=== PATIENT | female | born 1975 ===

== ENCOUNTER 2020-08-26 17:00 | Emergency (ER) | payer OTHER, SELFPAY ==
--- NOTE | 2020-08-26 | XR_ITS ---
EXAMINATION: CHEST 2 VIEWS CLINICAL INFORMATION: Chest pain. COMPARISON: March 15, 2020. TECHNIQUE: PA and lateral views of the chest were obtained. FINDINGS: The cardiac silhouette is not enlarged. The mediastinal and hilar contours are unremarkable. There are neither pleural effusions nor pneumothoraces. There are no consolidations. The osseous structures are stable. IMPRESSION: No evidence for acute disease.
--- NOTE | 2020-08-26 17:09 | PC.NURSE ---
ekg performed by shilpa in triage room
[2020-08-26 18:01] VITALS: BP 131/84; PULSE 86; RESP 18; TEMP 37.7; O2SAT 99; BMI 41.4
[2020-08-26 19:48] LABS: MANUAL DIFF FLAG NO
[2020-08-26 19:52] LABS: Basophils Percent Auto 0.3 % (0-2); Eosinophils Absolute Auto 0.1 X10*3/uL (0.0-0.4); Eosinophils Percent Auto 0.5 % (0-4); Hemoglobin 13.6 g/dl (12.0-16.0); Imm Gran Abs Auto 0.03 X10*3/uL (0.00-0.03); Imm Gran Pct Auto 0.3 % (0.0-0.4); Lymphocytes Absolute Auto 3.6 X10*3/uL (1.2-4.9); Lymphocytes Percent Auto 37.9 % (20-40); Mean Corpuscular HGB Conc 32.4 g/dl (31.0-35.0); Mean Corpuscular Hemoglobin 26.2 pg (27.0-33.0); Mean Corpuscular Volume 80.9 fL (80-98); Mean Platelet Volume 9.8 fL (9.4-12.3); Monocytes Absolute Auto 0.5 X10*3/uL (0.1-1.2); Monocytes Percent Auto 5.2 % (2-11); Neutrophils Absolute Auto 5.3 X10*3/uL (2.0-8.3); Neutrophils Percent Auto 55.8 % (45-73); Platelet Count 336 X10*3/uL (160-400); Red Blood Count 5.19 X10*6/uL (4.20-5.50); Red Cell Distribution Width 14.7 % (11.0-16.0); White Blood Count 9.5 X10*3/uL (4.8-10.8)
--- NOTE | 2020-08-26 19:58 | CT_ITS ---
EXAMINATION: CT HEAD WITHOUT CONTRAST CLINICAL INFORMATION: Trauma COMPARISON: 06/15/2019 TECHNIQUE: Contiguous axial imaging was performed from the skull base to vertex without intravenous administration of contrast. This CT examination was performed using dose optimization techniques as appropriate, variously including the following: *Automated exposure control *Adjustment of mA and/or kV according to patient size (this includes techniques or standardized protocols for targeted exams where dose is matched to indication/reason for exam; i.e. extremities or head) *Use of iterative reconstruction technique DLP: 680 mGy-cm FINDINGS: There is no evidence of acute intracranial hemorrhage or territorial infarction. No abnormal mass effect or midline shift is seen. [place] to white matter differentiation is well preserved. No extra-axial fluid collections are identified. The ventricles are normal in size. There is no abnormal attenuation within the brain parenchyma. The osseous structures and soft tissues are normal. The mastoid air cells and visualized portions of the paranasal sinuses are well aerated. IMPRESSION: No acute intracranial pathology.
--- NOTE | 2020-08-26 19:58 | US_ITS ---
EXAMINATION: US VENOUS LEFT LOWER EXTREMITY CLINICAL INFORMATION: Left lower extremity pain COMPARISON: None. TECHNIQUE: Doppler spectral analysis and color flow Doppler imaging was performed of the left lower extremity. Compression and augmentation maneuvers were performed. FINDINGS: The left common femoral, femoral, popliteal and calf veins were well-identified and normal. They demonstrate normal compressibility and color fill-in. IMPRESSION: No evidence for left lower extremity deep vein thrombosis.
--- NOTE | 2020-08-26 20:00 | ECG_ITS ---
Test Reason : CHEST PAIN Blood Pressure : / mmHG Vent. Rate : 086 BPM Atrial Rate : 086 BPM P-R Int : 130 ms QRS Dur : 100 ms QT Int : 374 ms P-R-T Axes : 036 040 015 degrees QTc Int : 447 ms Normal sinus rhythm Normal ECG No significant changes seen Referred By: Jaylene Vyas Electronically Signed By:MARIO ISSA MD
--- NOTE | 2020-08-26 20:01 | ED.CHESTPAIN ---
HPI - Chest Pain General Chief Complaint: Chest Pain Stated Complaint: FALL, CHEST PAIN Time Seen by Provider: 08/26/20 19:47 History of Present Illness HPI narrative: patient is a 44-year-old female with history of diabetes, hypertension, hypercholesterolemia presents today with having chest pain that is been on and off for the last 3 days. The pain has been constant for the last 6 hours. The pain is dull in nature as mid chest is worse with lying down. Has some shortness of breath with ambulation as well. There is no diaphoresis. No coughing or congestion or upper respiratory symptoms. Nothing really makes it better. This pain is rated as 5/10. patient did fell yesterday accidentally hit her head. There is dizziness associated with it. There was no loss of consciousness. There is no nausea no vomiting. Patient also has pain over the left lower extremity. Patient denies having any history of blood clot. Is not on control. No history of sudden in the family. No radiation of the pain. No history of having any stress test MD complaint: chest pain Onset (ago): day(s) Timing of current episode: episodic Related Data Previous Rx's Medication Instructions Recorded cephalexin [Keflex] 500 mg PO TID 7 Days #21 cap 08/26/20 ibuprofen 400 mg PO Q6H PRN #20 tab 08/26/20 Allergies Allergy/AdvReac Type Severity Reaction Status Date / Time canagliflozin [Invokana] Allergy Unknown rash Verified 07/06/20 00:00 liraglutide Allergy Unknown rash Verified 07/06/20 00:00 No Known Allergies Allergy Verified 08/26/20 18:00 [No Known Allergies*] animals Allergy Unknown rash Uncoded 07/06/20 00:00 Pt states no known food Allergy Unknown Unknown Uncoded 08/26/20 18:00 allerg Review of Systems Review of Systems: Constitutional: No Weight loss, No Fever, No Chills, No Night Sweats, No Fatigue, No Malaise ENT/Mouth: No Hearing loss, No Ear Pain, No Nasal Congestion, No Sinus Pain, No Hoarseness, No sore throat, No Rhinorrhea, No Swallowing Difficulty Eyes: No Eye Pain, No Swelling, No Redness, No Foreign Body, No Discharge, No Vision Changes Cardiovascular: positiveChest Pain, positive SOB, positive Dyspnea on Exertion, No Orthopnea, No Edema, No Palpitations Respiratory: No Cough, No Sputum, No Wheezing, No Smoke Exposure, No Dyspnea Gastrointestinal: No Nausea, No Vomiting, No Diarrhea, No Constipation, No abdominal Pain, No Hematochezia, No Melena Genitourinary: no irregular bleeding, No Dysuria, No Urinary Frequency, No Hematuria, No Urinary Incontinence, No Urgency, No Flank Pain, No Urinary Flow Changes, No Hesitancy Musculoskeletal: No joint pain, No Myalgias, No Joint Swelling Skin: No Skin Lesions, No rash Neuro: No Weakness, No Numbness, No Paresthesias, No Loss of Consciousness, No Dizziness, No Headache Psych: No Anxiety/Panic, No Depression, No SI/HI/AH/VH, No Social Issues, Heme/Lymph: No Bruising, No Bleeding,No Lymphadenopathy Endocrine: No Polyuria, No Polydipsia, No Temperature Intolerance [facility] Past Medical History Attestation statement: The following information was validated with the patient. Medical History Asthma Diabetes Ectopic Hyperlipidemia Hypertension Social History Social History Advance Directives: No Advance Directives Information Provided: No Physical Exam Vital Signs: Vital Signs: Vital Signs Temp Pulse Resp BP Pulse Ox 08/26/20 18:01 99.9 F 86 18 131/84 99 Body Mass Index 41.4 O2 sat 99% on room air. Normal. Appearance: Alert. Oriented X3. No acute distress. Eyes: Pupils equal, round and reactive to light. ENT: Pharynx normal. Neck: Normal inspection. Neck supple. No lymph nodes noted. No crepitus CVS: Normal heart rate and rhythm. Pulses normal. Normal S1 and S2 Respiratory: No respiratory distress. Breath sounds normal. No Wheezing. No rales Abdomen: Soft and nontender. No rigidity. No distention. good BS x4 Skin: Skin warm and dry. Normal skin color. Normal skin turgor. Extremities: No lower extremity edema. Neurovascular intact to all extremities. No Lacerations. No Rash , Calf are equal in size at 10 cm below the tibial tuberosity bilaterally Neuro: Oriented X 3. No motor deficit. No sensory deficit. Moving all extermities. No slurred speech MDM - Chest Pain MDM Narrative Medical decision making narrative: patient's chest x-ray negative for any acute evidence of pneumonia pneumothorax. Patient's electrolytes unremarkable. Troponin is negative. In the setting atypical history. Patient's risk factors. Heart score is less than 3. Patient is Doppler of the lower extremity was negative for any acute evidence of DVT. Patient's history is not consistent with PE. Will discharge patient home close follow-up on an outpatient basis. During further discussion with patient patient showed position a lesion in her left thigh. It looks grossly erythematous. Will give antibiotic. Will encourage patient to closely follow up on an outpatient basis. Patient will need follow-up for her chest pain as well. Differential Diagnosis Differential diagnosis: Likely fracture of rib, pneumothorax, stable angina, unstable angina pectoris, atypical chest pain, st elevation myocardial infarction, costochondritis and chest pain Medical Records Data Attestation: I reviewed the patient's medical records. Lab Data Attestation: I reviewed the patient's lab results. Result diagrams: 08/26/20 19:40 08/26/20 19:40 Labs: Lab Results 08/26/20 08/26/20 08/26/20 Range/Units 19:40 19:40 19:40 WBC 9.5 (4.8-10.8) X10*3/uL RBC 5.19 (4.20-5.50) X10*6/uL Hgb 13.6 (12.0-16.0) g/dl Hct 42.0 (37-47) % MCV 80.9 (80-98) fL MCH 26.2 L (27.0-33.0) pg MCHC 32.4 (31.0-35.0) g/dl RDW 14.7 (11.0-16.0) % Plt Count 336 (160-400) X10*3/uL MPV 9.8 (9.4-12.3) fL Immature Gran % (Auto) 0.3 (0.0-0.4) % Neut % (Auto) 55.8 (45-73) % Lymph % (Auto) 37.9 (20-40) % [place] % (Auto) 5.2 (2-11) % Eos % (Auto) 0.5 (0-4) % Baso % (Auto) 0.3 (0-2) % Lymph # (Auto) 3.6 (1.2-4.9) X10*3/uL [place] # (Auto) 0.5 (0.1-1.2) X10*3/uL Eos # (Auto) 0.1 (0.0-0.4) X10*3/uL Baso # (Auto) 0.0 (0.0-0.2) X10*3/uL Abs Immat Gran (auto) 0.03 (0.00-0.03) X10*3/uL Absolute Neuts (auto) 5.3 (2.0-8.3) X10*3/uL Absolute Nucleated RBC 0.000 (0.0-0.012) X10*3/uL Nucleated RBC % (auto) 0.0 (0.0-0.2) /100WBC Hold Blue Top SEE NOTE Sodium 137 (135-145) mmol/L Potassium 3.8 (3.3-5.1) mmol/l Chloride 102 (96-108) mmol/L Carbon Dioxide 25 (22-29) mmol/L Anion Gap 14 (12-20) BUN 12 (9-16) mg/dL Creatinine 0.65 (0.5-1.4) mg/dL Estim Creat Clear Calc 145.0 Estimated GFR > 60 Random Glucose 198 H (60-115) mg/dL Calcium 9.3 (8.4-10.2) mg/dL Troponin I High Sens (<3.5-17.0) ng/L 08/26/20 Range/Units 19:40 WBC (4.8-10.8) X10*3/uL RBC (4.20-5.50) X10*6/uL Hgb (12.0-16.0) g/dl Hct (37-47) % MCV (80-98) fL MCH (27.0-33.0) pg MCHC (31.0-35.0) g/dl RDW (11.0-16.0) % Plt Count (160-400) X10*3/uL MPV (9.4-12.3) fL Immature Gran % (Auto) (0.0-0.4) % Neut % (Auto) (45-73) % Lymph % (Auto) (20-40) % [place] % (Auto) (2-11) % Eos % (Auto) (0-4) % Baso % (Auto) (0-2) % Lymph # (Auto) (1.2-4.9) X10*3/uL [place] # (Auto) (0.1-1.2) X10*3/uL Eos # (Auto) (0.0-0.4) X10*3/uL Baso # (Auto) (0.0-0.2) X10*3/uL Abs Immat Gran (auto) (0.00-0.03) X10*3/uL Absolute Neuts (auto) (2.0-8.3) X10*3/uL Absolute Nucleated RBC (0.0-0.012) X10*3/uL Nucleated RBC % (auto) (0.0-0.2) /100WBC Hold Blue Top Sodium (135-145) mmol/L Potassium (3.3-5.1) mmol/l Chloride (96-108) mmol/L Carbon Dioxide (22-29) mmol/L Anion Gap (12-20) BUN (9-16) mg/dL Creatinine (0.5-1.4) mg/dL Estim Creat Clear Calc Estimated GFR Random Glucose (60-115) mg/dL Calcium (8.4-10.2) mg/dL Troponin I High Sens < 3.5 (<3.5-17.0) ng/L Discharge Plan Discharge Clinical Impression: Chest pain, Cellulitis Patient Disposition: Home, Self-Care Instructions: Chest Pain (ED), Cellulitis (ED) Additional Instructions: Thank you for visiting the emergency department today. If your symptoms worsen or do not resolve completely please return to the emergency department immediately or call 911. if he have any questions please call your primary care physician [place] please take antibiotics close follow-up on an outpatient basis. Please follow-up with your doctor for your chest pain. Small risk of myocardial infarction still exists. Prescriptions: New cephalexin [Keflex] 500 mg capsule 500 mg PO TID 7 Days Qty: 21 RF: 0 ibuprofen 400 mg tablet 400 mg PO Q6H PRN (Reason: pain) Qty: 20 RF: 0 Referrals: Shandra Diaz MD [Primary Care Provider] - 2 days
[2020-08-26 20:15] LABS: Anion Gap 14 (12-20); Blood Urea Nitrogen 12 mg/dL (9-16); Calcium 9.3 mg/dL (8.4-10.2); Carbon Dioxide 25 mmol/L (22-29); Chloride 102 mmol/L (96-108); Estimated Glomerular Filt Rate > 60; Glucose Random 198 mg/dL (60-115); Potassium 3.8 mmol/l (3.3-5.1); Sodium 137 mmol/L (135-145)
[2020-08-26 20:22] LABS: Troponin-I High Sensitivity < 3.5 ng/L (<3.5-17.0)
[2020-08-26] MEDS: Aspirin 81 MG TAB.CHEW 324 MG PO (20:34)
[2020-08-26 22:10] LABS: Basophils Percent Auto 0.3 % (0-2); Hematocrit 40.3 % (37-47); MANUAL DIFF FLAG SCAN; Mean Platelet Volume 9.7 fL (9.4-12.3); PLT CLUMP 1; SCAN SMEAR FLAG 1
[2020-08-26 22:12] LABS: Eosinophils Absolute Auto 0.1 X10*3/uL (0.0-0.4); Eosinophils Percent Auto 0.9 % (0-4); Imm Gran Abs Auto 0.02 X10*3/uL (0.00-0.03); Imm Gran Pct Auto 0.2 % (0.0-0.4); Lymphocytes Percent Auto 40.5 % (20-40); Mean Corpuscular HGB Conc 32.3 g/dl (31.0-35.0); Mean Corpuscular Hemoglobin 25.9 pg (27.0-33.0); Mean Corpuscular Volume 80.3 fL (80-98); Monocytes Absolute Auto 0.6 X10*3/uL (0.1-1.2); Monocytes Percent Auto 6.2 % (2-11); Neutrophils Absolute Auto 5.1 X10*3/uL (2.0-8.3); Neutrophils Percent Auto 51.9 % (45-73); Platelet Count 308 X10*3/uL (160-400); Red Blood Count 5.02 X10*6/uL (4.20-5.50); Red Cell Distribution Width 14.7 % (11.0-16.0); White Blood Count 9.8 X10*3/uL (4.8-10.8)
[2020-08-26 22:16] LABS: SLIDE REVIEW VERIFIED
[2020-08-26 22:32] LABS: Alanine Aminotransferase 24 U/L (0-31); Albumin Level 4.1 g/dL (3.5-5.0); Alkaline Phosphatase 102 U/L (39-117); Aspartate Amino Transferase 16 U/L (5-31); Bilirubin Direct 0.4 mg/dL (0.0-0.5); Bilirubin Total 0.8 mg/dL (0.0-1.0); Lipase 16 U/L (8-78); Total Protein 7.1 g/dL (6.5-8.0)
== END 2020-08-26 22:42 | disposition home or self-care (01) ==
PROVIDERS: Emergency Provider Emergency Medicine Emergency Medical Services; PCP Internal Medicine
DX: R07.9 Chest pain, unspecified (principal); L03.116 Cellulitis of left lower limb; M79.662 Pain in left lower leg; E11.9 Type 2 diabetes mellitus without complications; I10 Essential (primary) hypertension; E78.5 Hyperlipidemia, unspecified
CPT/HCPCS: 36415; 70450; 71046; 80048; 80076; 83690; 84484; 85025; 93005; 93971; 99283; 99284

== ENCOUNTER 2020-11-06 11:45 | Outpatient (REF) | payer OTHER, SELFPAY ==
[2020-11-06 12:44] LABS: Estimated Average Glucose 214 mg/dL; Hemoglobin A1c % 9.1 %
[2020-11-06 13:14] LABS: Alanine Aminotransferase 23 U/L (0-31); Albumin Level 4.2 g/dL (3.5-5.0); Alkaline Phosphatase 99 U/L (39-117); Anion Gap 12 (12-20); Aspartate Amino Transferase 19 U/L (5-31); Bilirubin Total 1.8 mg/dL (0.0-1.0); Blood Urea Nitrogen 9 mg/dL (9-16); Calcium 8.9 mg/dL (8.4-10.2); Carbon Dioxide 28 mmol/L (22-29); Chloride 100 mmol/L (96-108); Cholesterol 156 mg/dL; Estimated Glomerular Filt Rate > 60; Glucose Random 218 mg/dL (60-115); HDL Cholesterol 51 mg/dL; LDL Cholesterol Calculated 91 mg/dl; Sodium 136 mmol/L (135-145); Total Protein 7.1 g/dL (6.5-8.0); Triglycerides 72 mg/dL
== END 2020-11-06 11:46 | disposition home or self-care (01) ==
LOC: HO.LAB 11:45
PROVIDERS: PCP Internal Medicine; Visit Provider Internal Medicine
DX: E11.65 Type 2 diabetes mellitus with hyperglycemia (principal); E78.00 Pure hypercholesterolemia, unspecified; I10 Essential (primary) hypertension; N30.00 Acute cystitis without hematuria; Z00.01 Encounter for general adult medical examination with abnormal findings
CPT/HCPCS: 80053; 80061; 83036

== ENCOUNTER → 2020-12-12 08:10 | Outpatient (BNVA) | payer OTHER, SELFPAY | PROVIDERS: PCP Internal Medicine; Referring Provider Internal Medicine; Visit Provider Internal Medicine Endocrinology, Diabetes & Metabolism | DX: E11.65 Type 2 diabetes mellitus with hyperglycemia (principal); E11.42 Type 2 diabetes mellitus with diabetic 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; Z79.4 Long term (current) use of insulin; I10 Essential (primary) hypertension; E78.00 Pure hypercholesterolemia, unspecified; E66.01 Morbid (severe) obesity due to excess calories; E55.9 Vitamin D deficiency, unspecified | CPT/HCPCS: 82947 ==

== ENCOUNTER 2020-12-18 20:37 | Emergency (ER) | payer OTHER, SELFPAY ==
[2020-12-18 21:49] VITALS: BP 173/95; PULSE 97; RESP 17; TEMP 37; O2SAT 98
[2020-12-18 22:12] VITALS: BP 173/95; PULSE 97; RESP 17; TEMP 37; O2SAT 98; BMI 38.7
--- NOTE | 2020-12-18 22:53 | XR_ITS ---
EXAMINATION: XR CHEST CLINICAL INFORMATION: Cough COMPARISON: Chest x-ray 08/26/2020 TECHNIQUE: 2 views of the chest were obtained. FINDINGS: No significant abnormality is noted involving the heart, lungs, mediastinum, bony thorax or soft tissues. XR/XR chest 2V IMPRESSION: Unremarkable examination.
[2020-12-18] MEDS: diphenhydrAMINE HCL 25 MG TABLET 50 MG PO (23:08)
--- NOTE | 2020-12-18 23:22 | ED.SKABFB ---
HPI - Skin/Abscess/Foreign Bdy General Chief complaint: Skin/Abscess/Foreign Body Stated complaint: rash Time Seen by Provider: 12/18/20 22:17 Source: patient Mode of arrival: ambulatory History of Present Illness HPI narrative: This is a 45-year-old female with history diabetes and asthma who presents with onset facial redness and itchiness this started on Thursday and progressively worsened into Thursday with associated fevers that she reports as 101.2 and discussed her condition with her primary care provider who started her on cephalexin and prednisone. Patient states that since being started on the cephalexin and prednisone the redness in her face has actually worsened and now she has some complaints of right upper quadrant right lower lobe discomfort on deep inspiration but otherwise denies chest pain/palpitations/soreness of breath. She denies any recent history of cough for sore throat and adamantly denies any new products, pets, clothing, exposure to anything that may have led to this. Lotions, soaps, makeup, washing detergent, clothing, masks, pets. MD complaint: rash Related Data Home Medications Medication Instructions Recorded Confirmed amlodipine 10 mg tablet 10 mg PO DAILY 12/12/20 12/12/20 empagliflozin 10 mg tablet 10 mg PO QAM 12/12/20 12/12/20 ezetimibe 10 mg tablet 10 mg PO DAILY 12/12/20 12/12/20 gabapentin 100 mg capsule 100 mg PO TID 12/12/20 12/12/20 rosuvastatin 40 mg tablet 40 mg PO BEDTIME 12/12/20 12/12/20 sitagliptin 100 mg tablet 100 mg PO DAILY 12/12/20 12/12/20 telmisartan 80 1 tab PO DAILY 12/12/20 12/12/20 mg-hydrochlorothiazide 25 mg tablet Previous Rx's Medication Instructions Recorded cephalexin [Keflex] 500 mg PO TID 7 Days #21 cap 08/26/20 ibuprofen 400 mg PO Q6H PRN #20 tab 08/26/20 metformin 500 mg tablet,extended 500 mg PO DAILY #90 tab 12/07/20 release 24 hr insulin pump cartridge #10 ea 12/12/20 blood sugar diagnostic #100 ea 12/13/20 insulin lispro 100 unit/mL 0 - 100 unit SUBCUT DAILY #90 ml 12/14/20 subcutaneous solution Allergies Allergy/AdvReac Type Severity Reaction Status Date / Time canagliflozin [Invokana] Allergy Unknown rash Verified 07/06/20 00:00 liraglutide Allergy Unknown rash Verified 07/06/20 00:00 No Known Allergies Allergy Verified 08/26/20 18:00 [No Known Allergies*] animals Allergy Unknown rash Uncoded 07/06/20 00:00 Pt states no known food Allergy Unknown Unknown Uncoded 08/26/20 18:00 allerg Review of Systems Review of Systems: Pertinent positives and negatives as stated in HPI 10 point review of systems is otherwise negative. PMFSH Past Medical History Source: nursing notes reviewed Medical History Asthma Diabetes Diabetes type 2, uncontrolled Diabetic 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 with type 2 diabetes mellitus Ectopic Hyperlipidemia Hypertension shelter (current) use of insulin Morbid obesity Vitamin D deficiency Surgical History History of surgical procedure on mouth Hx of ectopic Family History Family History Father Diabetes mellitus Mother Diabetes mellitus Ovarian cancer Social History Social History Smoking Status: Never smoker Use of substances other than those prescribed or required for medical reasons: No Advance Directives: No Advance Directives Information Provided: Yes Physical Exam Vital Signs: Vital Signs: Last Vital Signs Temp 98.6 F 12/18/20 22:12 Pulse 97 12/18/20 22:12 Resp 17 12/18/20 22:12 BP 173/95 H 12/18/20 22:12 Pulse Ox 98 12/18/20 22:12 Body Mass Index 38.7 VITAL SIGNS: Reviewed. GENERAL: Well developed, well nourished, in no acute distress. HEAD: Normocephalic/atraumatic, EYES: PERRLA, EOMI, bilateral conjunctival injection with clear watery drainage EARS: Ext canals without abnormality NOSE: Nares patent bilateral OROPHARYNX: no oral lesions noted, posterior pharynx clear NECK: Supple, no adenopathy LUNGS: Normal breath sounds.SpO2<98> CARDIOVASCULAR: Regular rate and rhythm without noted murmurs ABDOMEN: Soft, non-tender, non-distended with bowel sounds. EXTREMITIES: No cyanosis, clubbing or edema. SKIN: Inspection of the skin reveals erythema, as well as hives around left eye but no lip or tongue or posterior pharynx swelling noted NEUROLOGIC: Alert and oriented x 4. Course Course Course Narrative: This is a 45-year-old female with history and clinical presentation consistent with some form, unknown, allergic exposure and based on history appears to be new and is likely attributable to chronic exposure that she is experiencing currently. However, there is evidence to suggest that this has worsened with initiation cephalexin and prednisone and patient was instructed to stop both medications. Doubt pneumonia, cardiac, PE, anaphylaxis, angioedema etiologies. -Benadryl, two view chest x-ray, re-evaluation All investigations reviewed and on re-evaluation patient reports considerable improvement with almost complete resolution of facial erythema and still no evidence anaphylaxis or angioedema symptoms. Chest x-ray without acute findings and right upper quadrant right lower chest wall discomfort has completely resolved. Patient was instructed to stop the cephalexin and prednisone as the cephalexin might be causing an adverse reaction. Discharge Plan Discharge Clinical Impression: Allergic reaction, Urticaria Patient Disposition: Home, Self-Care Instructions: Urticaria (ED), General Allergic Reaction (ED) Additional Instructions: 1. Resume all home medications as prescribed. 2. STOP cephalexin and prednisone at this time. 3. Recommend taking Benadryl as directed on the outside packaging, however take it every 6-8 hours for the next 24-48 hours but if your facial symptoms do not continue to resolve please return to the emergency department for further evaluation. 4. Consider keeping a journal in an attempt to pinpoint what item you may have developed a recent interaction with. Do not hesitate to return to the emergency department should she developed any lip, tongue, facial swelling, difficulties breathing. Prescriptions: No Action metformin 500 mg tablet extended release 24 hr 500 mg PO DAILY Qty: 90 RF: 1 (DME) Contour Next Test Strips Strip See Rx Instructions .ROUTE .MEDSUPPLY Qty: 100 RF: 6 insulin lispro [Humalog U-100 Insulin] 100 unit/mL solution 0 - 100 unit subcut DAILY Qty: 90 RF: 1 cephalexin [Keflex] 500 mg capsule 500 mg PO TID 7 Days Qty: 21 RF: 0 ibuprofen 400 mg tablet 400 mg PO Q6H PRN (Reason: pain) Qty: 20 RF: 0 Jardiance 10 mg tablet 10 mg PO QAM RF: 0 rosuvastatin 40 mg tablet 40 mg PO BEDTIME RF: 0 ezetimibe 10 mg tablet 10 mg PO DAILY RF: 0 telmisartan-hydrochlorothiazid 80-25 mg tablet 1 tab PO DAILY RF: 0 amlodipine 10 mg tablet 10 mg PO DAILY RF: 0 Januvia 100 mg tablet 100 mg PO DAILY RF: 0 gabapentin 100 mg capsule 100 mg PO TID RF: 0 (DME) [employer] Dash 5 Pack Pod Cartridge See Rx Instructions .ROUTE .MEDSUPPLY Qty: 10 RF: 6 Referrals: Shandra Diaz MD [Primary Care Provider] - 2 days (Re-evaluation after worsening facial symptoms after being started on cephalexin and prednisone. No evidence of anaphylaxis or angioedema at this time.)
[2020-12-19 00:10] VITALS: BP 177/71; PULSE 99; RESP 17; TEMP 36.4; O2SAT 97
== END 2020-12-19 00:25 | disposition home or self-care (01) ==
PROVIDERS: Emergency Provider Student in an Organized Health Care Education/Training Program; PCP Internal Medicine
DX: T78.40XA Allergy, unspecified, initial encounter (principal); L50.9 Urticaria, unspecified; R07.89 Other chest pain; X58.XXXA Exposure to other specified factors, initial encounter; E11.9 Type 2 diabetes mellitus without complications; I10 Essential (primary) hypertension; J45.909 Unspecified asthma, uncomplicated; Z79.899 Other long term (current) drug therapy
CPT/HCPCS: 71046; 99283; 99284; Q0163

== ENCOUNTER 2020-12-22 09:49 | Emergency (ER) | payer OTHER, SELFPAY ==
--- NOTE | ~2020-12-22 | XR_ITS ---
EXAMINATION: XR CHEST CLINICAL INFORMATION: Shortness of breath and chest tightness. COMPARISON: Chest radiographs dated 12/18/2020. TECHNIQUE: Frontal view of the chest was obtained. FINDINGS: No significant abnormality is noted involving the heart, lungs, mediastinum, bony thorax or soft tissues. XR/XR chest 1V IMPRESSION: No acute cardiopulmonary process.
[2020-12-22 09:51] VITALS: BP 134/91; PULSE 100; RESP 30; TEMP 36.9; O2SAT 96; BMI 39.9
[2020-12-22] MEDS: Albuterol Sulfate (0.083%) 2.5 MG/3 ML VIAL.NEB 10 MG INHALE (10:44)
[2020-12-22 10:50] VITALS: PULSE 79; O2SAT 97
[2020-12-22 10:57] LABS: MANUAL DIFF FLAG NO
[2020-12-22 10:58] LABS: Basophils Percent Auto 0.4 % (0-2); Eosinophils Absolute Auto 0.2 X10*3/uL (0.0-0.4); Eosinophils Percent Auto 1.7 % (0-4); Hematocrit 40.6 % (37-47); Hemoglobin 13.4 g/dl (12.0-16.0); Imm Gran Abs Auto 0.04 X10*3/uL (0.00-0.03); Imm Gran Pct Auto 0.4 % (0.0-0.4); Lymphocytes Absolute Auto 1.4 X10*3/uL (1.2-4.9); Lymphocytes Percent Auto 12.1 % (20-40); Mean Corpuscular Hemoglobin 26.7 pg (27.0-33.0); Mean Platelet Volume 9.8 fL (9.4-12.3); Monocytes Absolute Auto 0.3 X10*3/uL (0.1-1.2); Monocytes Percent Auto 2.5 % (2-11); Neutrophils Absolute Auto 9.3 X10*3/uL (2.0-8.3); Neutrophils Percent Auto 82.9 % (45-73); Platelet Count 341 X10*3/uL (160-400); Red Blood Count 5.01 X10*6/uL (4.20-5.50); Red Cell Distribution Width 13.5 % (11.0-16.0); White Blood Count 11.2 X10*3/uL (4.8-10.8)
--- NOTE | 2020-12-22 10:58 | ED.SOB ---
HPI - SOB/Dyspnea General Chief Complaint: Dyspnea Stated Complaint: sob Time Seen by Provider: 12/22/20 10:14 Source: patient Mode of arrival: ambulatory Limitations: no limitations History of Present Illness HPI Narrative: 45-year-old female with a past medical history of asthma, type 2 diabetes with insulin usage, hypertension, hyperlipidemia and morbid obesity presenting to the ED with complaints of fevers, chills, body aches, dry cough with chest tightness, shortness of breath, dyspnea on exertion, orthopnea and wheezing for approximately 1 week worse today. Denies recent travel or sick contacts. Denies any dizziness, headaches, nausea/vomiting, chest pain, palpitations, extremity edema, symptoms or any other symptoms complaints or concerns at this time. MD elicited complaint: shortness of breath, cough, pain with inspiration and asthma attack Pertinent past history: asthma and diabetes Onset (ago): week(s) (One week worse today) Context: other (Patient reports she was seen here on 12/18/2020 for an allergic reaction) Timing: constant Severity: moderate Exacerbating factors: lying flat, exertion, movement, coughing, inspiration, talking and deep breaths Relieving factors: rest and upright position Known history of: asthma and diabetes Associated symptoms: pain with inspiration, fever, cough, wheezing and orthopnea Treatment prior to arrival: none Related Data Home Medications Medication Instructions Recorded Confirmed amlodipine 10 mg tablet 10 mg PO DAILY 12/12/20 12/12/20 empagliflozin 10 mg tablet 10 mg PO QAM 12/12/20 12/12/20 ezetimibe 10 mg tablet 10 mg PO DAILY 12/12/20 12/12/20 gabapentin 100 mg capsule 100 mg PO TID 12/12/20 12/12/20 rosuvastatin 40 mg tablet 40 mg PO BEDTIME 12/12/20 12/12/20 sitagliptin 100 mg tablet 100 mg PO DAILY 12/12/20 12/12/20 telmisartan 80 1 tab PO DAILY 12/12/20 12/12/20 mg-hydrochlorothiazide 25 mg tablet Previous Rx's Medication Instructions Recorded cephalexin [Keflex] 500 mg PO TID 7 Days #21 cap 08/26/20 ibuprofen 400 mg PO Q6H PRN #20 tab 08/26/20 metformin 500 mg tablet,extended 500 mg PO DAILY #90 tab 01/22/21 release 24 hr insulin pump cartridge #10 ea 12/12/20 blood sugar diagnostic #100 ea 12/13/20 insulin lispro 100 unit/mL 0 - 100 unit SUBCUT DAILY #90 ml 12/14/20 subcutaneous solution albuterol sulfate 0.63 mg INHALATION QID PRN #75 ml 12/22/20 albuterol sulfate 1 inh INHALATION QID PRN #8.5 g 12/22/20 azithromycin See Rx Instructions .ROUTE 12/22/20 .COMPLEX #6 tab nebulizers [AeroEclipse II #1 ea 12/22/20 Nebulizer] prednisone 40 mg PO DAILY 5 Days #10 tab 12/22/20 Allergies Allergy/AdvReac Type Severity Reaction Status Date / Time canagliflozin [Invokana] Allergy Unknown rash Verified 07/06/20 00:00 liraglutide Allergy Unknown rash Verified 07/06/20 00:00 No Known Allergies Allergy Verified 08/26/20 18:00 [No Known Allergies*] animals Allergy Unknown rash Uncoded 07/06/20 00:00 Pt states no known food Allergy Unknown Unknown Uncoded 08/26/20 18:00 allerg Review of Systems Review of Systems: Constitutional : + Fever, + Chills, + Fatigue, + Malaise, No Weight loss, No night sweats ENT/Mouth : No Hearing loss, No Ear Pain, No Nasal Congestion, No Sinus Pain, No Hoarseness, No sore throat, No Rhinorrhea, No Swallowing Difficulty Eyes: No Eye Pain, No Swelling, No Redness, No Foreign Body, No Discharge, No Vision Changes Cardiovascular : + SOB, + Dyspnea on Exertion, + Orthopnea, No Edema, No extremity swelling, No Palpitations Respiratory : + Cough, + Wheezing, + Dyspnea, No Sputum Gastrointestinal : No Nausea, No Vomiting, No Diarrhea, No abdominal Pain, No Hematochezia, No Melena Genitourinary : No irregular bleeding, No Dysuria, No Urinary Frequency, No Hematuria, No Urinary Incontinence, No Urgency, No Flank Pain, No Urinary Flow Changes, No Hesitancy Musculoskeletal : + Myalgias, No Joint Swelling, No joint pain Skin : No Skin Lesions, No rash Neuro : No Weakness, No Numbness, No Paresthesias, No Loss of Consciousness, No Dizziness, No Headache Psych : No Anxiety/Panic, No Depression, No SI/HI/AH/VH Heme/Lymph: No Bruising, No Bleeding,No Lymphadenopathy Endocrine : No Polyuria, No Polydipsia, No Temperature Intolerance Yes all other systems are reviewed and are negative [facility] Past Medical History Attestation statement: The following information was validated with the patient. 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 Morbid obesity Vitamin D deficiency Surgical History History of surgical procedure on mouth Hx of ectopic Family History Family History Father Diabetes mellitus Mother Diabetes mellitus Ovarian cancer Social History Social History Alcohol intake: never Smoking Status: Never smoker Smoked in Last 30 Days: No Use of substances other than those prescribed or required for medical reasons: No Advance Directives: No Advance Directives Information Provided: No Physical Exam Vital Signs: Vital Signs: Last Vital Signs Temp 98.5 F 12/22/20 09:51 Pulse 89 12/22/20 12:00 Resp 16 12/22/20 12:00 BP 134/91 H 12/22/20 09:51 Pulse Ox 97 12/22/20 12:00 Body Mass Index 39.9 vital signs have been reviewed as normal and appeared to be correct. Blood pressure hypertensive. Heart rate tachycardic. Respiration rate tachypneic. Temperature normal. Oxygen saturation normal. Appearance: Alert. Oriented X3. + acute respiratory distress. Head: Normal external exam. Normocephalic. Atraumatic. Eyes: PERRLA. EOMI. Conjunctiva and sclera normal. Eyelids normal. ENT: EAC normal. TM's Normal. Pharynx normal. Uvula midline. Moist mucous membranes. No trismus noted. No drooling noted. No muffled voice noted. Neck: Normal inspection. Neck supple. FROM. No adenopathy. Thyroid Normal. Trachea midline. No meningeal signs. No neck mass noted. CVS: Normal heart rate and rhythm. Heart sound normal. No murmurs noted. Pulses normal throughout. Respiratory: + respiratory distress. Patient has inspiratory and expiratory wheezing throughout. Decreased breath sounds with accessory muscle usage noted. No rales or rhonchi noted. Chest has tenderness to palpation diffusely. Abdomen: Soft and nontender. Bowel sounds normal in all 4 quadrants. No distention noted. No organomegaly noted. No visible injury noted. Back: No CVA tenderness. Full range of motion noted. Skin: Skin warm and dry. Normal skin color. Normal skin turgor. No rashes/lesions/lacerations noted. Extremities: No lower extremity edema. No calf tenderness noted. Extremities exhibit normal range of motion. Extremities nontender. Neuro: Oriented X 3. No motor deficit. No sensory deficit. Reflexes normal. Course Course Course Narrative: 10:45am - 45-year-old female with a past medical history of asthma, type 2 diabetes with insulin usage, hypertension, hyperlipidemia and morbid obesity presenting to the ED with complaints of fevers, chills, body aches, dry cough with chest tightness, shortness of breath, dyspnea on exertion, orthopnea and wheezing for approximately 1 week worse today. - on exam patient is alert and oriented x3. Patient is noted to be tachycardic at 100 and tachypneic at 30 for respirations otherwise all other vitals are within normal limits. Mild acute respiratory distress with inspiratory and expiratory wheezing throughout with decreased breath sounds in accessory muscle usage noted. - concern for CHF vs PNA vs asthma exacerbation with bronchospasm/bronchitis vs COVID - Plan: Labs, CXR, SARS/flu/RSV swab, blood cultures, lactic acid. Provide fluids, IV steroids and a dose of Rocephin and re-evaluate. Reevaluation(s) Reevaluation #1: - white blood cell count 09456. Glucose 349. Otherwise all other labs including troponin/BNP and D-dimer negative. Chest x-ray negative for pneumonia or any acute processes. COVID/RSV/flu negative. - on exam patient lungs are now clear to auscultation no wheezing no accessory muscles usage noted. Vital signs remained stable within normal limits. - will DC home with antibiotics a course of steroids although I explained to the patient that the steroids can increase her blood glucose level and she needs to monitor appropriately along with symptomatic treatment instructions return if any new or worsening symptoms and to follow up with primary care provider. Patient understands agrees the plan. Time: 12:13 MDM - SOB/Dyspnea Differential Diagnosis Differential diagnosis: Likely acute exacerbation of chronic obstructive airways disease, congestive heart failure, pneumonia, asthma with exacerbation, pleural effusion and anemia Medical Records Attestation: I reviewed the patient's medical records. Lab Data Attestation: I reviewed the patient's lab results. Result diagrams: 12/22/20 10:46 12/22/20 10:45 Labs: Lab Results 12/22/20 12/22/20 12/22/20 Range/Units 10:45 10:45 10:45 WBC (4.8-10.8) X10*3/uL RBC (4.20-5.50) X10*6/uL Hgb (12.0-16.0) g/dl Hct (37-47) % MCV (80-98) fL MCH (27.0-33.0) pg MCHC (31.0-35.0) g/dl RDW (11.0-16.0) % Plt Count (160-400) X10*3/uL MPV (9.4-12.3) fL Immature Gran % (Auto) (0.0-0.4) % Neut % (Auto) (45-73) % Lymph % (Auto) (20-40) % [place] % (Auto) (2-11) % Eos % (Auto) (0-4) % Baso % (Auto) (0-2) % Lymph # (Auto) (1.2-4.9) X10*3/uL [place] # (Auto) (0.1-1.2) X10*3/uL Eos # (Auto) (0.0-0.4) X10*3/uL Baso # (Auto) (0.0-0.2) X10*3/uL Abs Immat Gran (auto) (0.00-0.03) X10*3/uL Absolute Neuts (auto) (2.0-8.3) X10*3/uL Absolute Nucleated RBC (0.0-0.012) X10*3/uL Nucleated RBC % (auto) (0.0-0.2) /100WBC PT 11.3 (10.8-13.0) SEC INR 1.0 (0.9-1.1) D-Dimer < 200 NG/ML Sodium 135 (135-145) mmol/L Potassium 5.0 (3.3-5.1) mmol/L Chloride 102 (96-108) mmol/L Carbon Dioxide 22 (22-29) mmol/L Anion Gap 16 (12-20) BUN 10 (9-16) mg/dL Creatinine 0.66 (0.5-1.4) mg/dL Estim Creat Clear Calc 138.4 Estimated GFR > 60 Random Glucose 349 H D (60-115) mg/dL Lactic Acid 1.7 (0.5-2.0) mmol/L Calcium 8.7 (8.4-10.2) mg/dL Magnesium 2.1 (1.6-2.6) mg/dL Ferritin (10-250) ng/mL Total Bilirubin 0.6 (0.0-1.0) mg/dL Direct Bilirubin 0.2 (0.0-0.5) mg/dL AST 25 (5-31) U/L ALT 19 (0-31) U/L Alkaline Phosphatase 90 (39-117) U/L Lactate Dehydrogenase Cancelled Troponin I High Sens (<3.5-17.0) ng/L C-Reactive Protein 0.97 H (< or = 0.50) mg/dL B-Natriuretic Peptide (<100) pg/mL Total Protein 7.2 (6.5-8.0) g/dL Albumin 3.8 (3.5-5.0) g/dL Procalcitonin ng/mL Coronavirus (PCR) (Negative) Influenza Type A (PCR) (Negative) Influenza Type B (PCR) (Negative) RSV RNA Qual (PCR) (Negative) 12/22/20 12/22/20 12/22/20 Range/Units 10:45 10:46 10:46 WBC 11.2 H (4.8-10.8) X10*3/uL RBC 5.01 (4.20-5.50) X10*6/uL Hgb 13.4 (12.0-16.0) g/dl Hct 40.6 (37-47) % MCV 81.0 (80-98) fL MCH 26.7 L (27.0-33.0) pg MCHC 33.0 (31.0-35.0) g/dl RDW 13.5 (11.0-16.0) % Plt Count 341 (160-400) X10*3/uL MPV 9.8 (9.4-12.3) fL Immature Gran % (Auto) 0.4 (0.0-0.4) % Neut % (Auto) 82.9 H (45-73) % Lymph % (Auto) 12.1 L (20-40) % [place] % (Auto) 2.5 (2-11) % Eos % (Auto) 1.7 (0-4) % Baso % (Auto) 0.4 (0-2) % Lymph # (Auto) 1.4 (1.2-4.9) X10*3/uL [place] # (Auto) 0.3 (0.1-1.2) X10*3/uL Eos # (Auto) 0.2 (0.0-0.4) X10*3/uL Baso # (Auto) 0.0 (0.0-0.2) X10*3/uL Abs Immat Gran (auto) 0.04 H (0.00-0.03) X10*3/uL Absolute Neuts (auto) 9.3 H (2.0-8.3) X10*3/uL Absolute Nucleated RBC 0.000 (0.0-0.012) X10*3/uL Nucleated RBC % (auto) 0.0 (0.0-0.2) /100WBC PT (10.8-13.0) SEC INR (0.9-1.1) D-Dimer NG/ML Sodium (135-145) mmol/L Potassium (3.3-5.1) mmol/L Chloride (96-108) mmol/L Carbon Dioxide (22-29) mmol/L Anion Gap (12-20) BUN (9-16) mg/dL Creatinine (0.5-1.4) mg/dL Estim Creat Clear Calc Estimated GFR Random Glucose (60-115) mg/dL Lactic Acid (0.5-2.0) mmol/L Calcium (8.4-10.2) mg/dL Magnesium (1.6-2.6) mg/dL Ferritin (10-250) ng/mL Total Bilirubin (0.0-1.0) mg/dL Direct Bilirubin (0.0-0.5) mg/dL AST (5-31) U/L ALT (0-31) U/L Alkaline Phosphatase (39-117) U/L Lactate Dehydrogenase Troponin I High Sens < 3.5 (<3.5-17.0) ng/L C-Reactive Protein (< or = 0.50) mg/dL B-Natriuretic Peptide 27 (<100) pg/mL Total Protein (6.5-8.0) g/dL Albumin (3.5-5.0) g/dL Procalcitonin ng/mL Coronavirus (PCR) NEGATIVE (Negative) Influenza Type A (PCR) NEGATIVE (Negative) Influenza Type B (PCR) NEGATIVE (Negative) RSV RNA Qual (PCR) NEGATIVE (Negative) 12/22/20 12/22/20 Range/Units 10:46 10:46 WBC (4.8-10.8) X10*3/uL RBC (4.20-5.50) X10*6/uL Hgb (12.0-16.0) g/dl Hct (37-47) % MCV (80-98) fL MCH (27.0-33.0) pg MCHC (31.0-35.0) g/dl RDW (11.0-16.0) % Plt Count (160-400) X10*3/uL MPV (9.4-12.3) fL Immature Gran % (Auto) (0.0-0.4) % Neut % (Auto) (45-73) % Lymph % (Auto) (20-40) % [place] % (Auto) (2-11) % Eos % (Auto) (0-4) % Baso % (Auto) (0-2) % Lymph # (Auto) (1.2-4.9) X10*3/uL [place] # (Auto) (0.1-1.2) X10*3/uL Eos # (Auto) (0.0-0.4) X10*3/uL Baso # (Auto) (0.0-0.2) X10*3/uL Abs Immat Gran (auto) (0.00-0.03) X10*3/uL Absolute Neuts (auto) (2.0-8.3) X10*3/uL Absolute Nucleated RBC (0.0-0.012) X10*3/uL Nucleated RBC % (auto) (0.0-0.2) /100WBC PT (10.8-13.0) SEC INR (0.9-1.1) D-Dimer NG/ML Sodium (135-145) mmol/L Potassium (3.3-5.1) mmol/L Chloride (96-108) mmol/L Carbon Dioxide (22-29) mmol/L Anion Gap (12-20) BUN (9-16) mg/dL Creatinine (0.5-1.4) mg/dL Estim Creat Clear Calc Estimated GFR Random Glucose (60-115) mg/dL Lactic Acid (0.5-2.0) mmol/L Calcium (8.4-10.2) mg/dL Magnesium (1.6-2.6) mg/dL Ferritin 63 (10-250) ng/mL Total Bilirubin (0.0-1.0) mg/dL Direct Bilirubin (0.0-0.5) mg/dL AST (5-31) U/L ALT (0-31) U/L Alkaline Phosphatase (39-117) U/L Lactate Dehydrogenase Troponin I High Sens (<3.5-17.0) ng/L C-Reactive Protein (< or = 0.50) mg/dL B-Natriuretic Peptide (<100) pg/mL Total Protein (6.5-8.0) g/dL Albumin (3.5-5.0) g/dL Procalcitonin < 0.02 ng/mL Coronavirus (PCR) (Negative) Influenza Type A (PCR) (Negative) Influenza Type B (PCR) (Negative) RSV RNA Qual (PCR) (Negative) Imaging Data Chest x-ray: Attestation: I personally reviewed and interpreted this imaging study as follows: Radiologist's impression: FINDINGS: No significant abnormality is noted involving the heart, lungs, mediastinum, bony thorax or soft tissues. XR/XR chest 1V IMPRESSION: No acute cardiopulmonary process. Critical Care Time Critical Care Time Critical Care Time: Yes Total Critical Care Time: 60 Attestation: I personally attest to this time spent taking care of the patient Discharge Plan Discharge Clinical Impression: Acute bronchitis with bronchospasm, Acute hyperglycemia, Diffuse wheezing Acute asthma exacerbation Qualifiers: Asthma severity: moderate Asthma persistence: unspecified Qualified Code(s): J45.901 - Unspecified asthma with (acute) exacerbation Patient Disposition: Home, Self-Care Instructions: Asthma (ED), Acute Bronchitis (ED), How to Use a Nebulizer (ED), Bronchospasm (ED), Wheezing (ED) Additional Instructions: I gave you a prescription for prednisone which is a steroid your diabetic therefore the steroid could increase her blood sugars very high therefore he needs to check her blood sugars much more often than you normally do and treat accordingly. Return if any new or worsening symptoms. Follow up with her primary care provider. Prescriptions: New azithromycin 250 mg tablet See Rx Instructions .ROUTE .COMPLEX Qty: 6 RF: 0 prednisone 20 mg tablet 40 mg PO DAILY 5 Days Qty: 10 RF: 0 (DME) AeroEclipse II Nebulizer Misc See Rx Instructions .ROUTE .MEDSUPPLY Qty: 1 RF: 0 albuterol sulfate 0.63 mg/3 mL solution for nebulization 0.63 mg inhalation QID PRN (Reason: shortness of breath or wheezing) Qty: 75 RF: 0 albuterol sulfate 90 mcg/actuation HFA aerosol inhaler 1 inh inhalation QID PRN (Reason: shortness of breath or wheezing) Qty: 8.5 RF: 0 No Action metformin 500 mg tablet extended release 24 hr 500 mg PO DAILY Qty: 90 RF: 1 (DME) Contour Next Test Strips Strip See Rx Instructions .ROUTE .MEDSUPPLY Qty: 100 RF: 6 insulin lispro [Humalog U-100 Insulin] 100 unit/mL solution 0 - 100 unit subcut DAILY Qty: 90 RF: 1 cephalexin [Keflex] 500 mg capsule 500 mg PO TID 7 Days Qty: 21 RF: 0 ibuprofen 400 mg tablet 400 mg PO Q6H PRN (Reason: pain) Qty: 20 RF: 0 Jardiance 10 mg tablet 10 mg PO QAM RF: 0 rosuvastatin 40 mg tablet 40 mg PO BEDTIME RF: 0 ezetimibe 10 mg tablet 10 mg PO DAILY RF: 0 telmisartan-hydrochlorothiazid 80-25 mg tablet 1 tab PO DAILY RF: 0 amlodipine 10 mg tablet 10 mg PO DAILY RF: 0 Januvia 100 mg tablet 100 mg PO DAILY RF: 0 gabapentin 100 mg capsule 100 mg PO TID RF: 0 (DME) Concur [place]ipod Dash 5 Pack Pod Cartridge See Rx Instructions .ROUTE .MEDSUPPLY Qty: 10 RF: 6 Referrals: Shandra Diaz MD [Primary Care Provider] - 2 days Stand Alone Forms: Work/School Release Interventions: ED Discharge Assessment Last Done: 12/22/20 13:09 Print Language: Mauritian
[2020-12-22 11:04] LABS: Prothrombin Time 11.3 SEC (10.8-13.0)
[2020-12-22 11:09] LABS: D Dimer < 200 NG/ML
[2020-12-22] MEDS: 0.9 % Sodium Chloride 1,000 ML 999 ML IVCONT (11:14)
[2020-12-22] MEDS: methylPREDNISolone Sod Succ/PF 125 MG/2 ML VIAL IVPUSH (11:14)
[2020-12-22] MEDS: cefTRIAXone sodium 1 GM in 0.9 % Sodium Chloride 50 ML IV (11:15)
[2020-12-22 11:22] LABS: Lactic Acid 1.7 mmol/L (0.5-2.0)
[2020-12-22 11:32] LABS: Alanine Aminotransferase 19 U/L (0-31); Albumin Level 3.8 g/dL (3.5-5.0); Alkaline Phosphatase 90 U/L (39-117); Anion Gap 16 (12-20); Aspartate Amino Transferase 25 U/L (5-31); Bilirubin Direct 0.2 mg/dL (0.0-0.5); Bilirubin Total 0.6 mg/dL (0.0-1.0); Blood Urea Nitrogen 10 mg/dL (9-16); C Reactive Protein 0.97 mg/dL (< or = 0.50); Calcium 8.7 mg/dL (8.4-10.2); Carbon Dioxide 22 mmol/L (22-29); Chloride 102 mmol/L (96-108); Creatinine Clr Calc Pharmacy 138.4; Estimated Glomerular Filt Rate > 60; Glucose Random 349 mg/dL (60-115); Magnesium 2.1 mg/dL (1.6-2.6); Sodium 135 mmol/L (135-145); Total Protein 7.2 g/dL (6.5-8.0)
[2020-12-22 11:35] LABS: B Type Natriuretic Peptide 27 pg/mL (<100); Troponin-I High Sensitivity < 3.5 ng/L (<3.5-17.0)
[2020-12-22 11:36] LABS: Influenza A PCR NEGATIVE (Negative); Influenza B PCR NEGATIVE (Negative); Resp Syncy Virus RNA Qual PCR NEGATIVE (Negative); SARS COV2 PCR INHOUSE NEGATIVE (Negative)
[2020-12-22 11:49] LABS: Ferritin 63 ng/mL (10-250)
[2020-12-22 12:00] VITALS: PULSE 89; RESP 16; O2SAT 97
[2020-12-22 12:47] LABS: Procalcitonin < 0.02 ng/mL
== END 2020-12-22 13:21 | disposition home or self-care (01) ==
PROVIDERS: Physician Assistant Medical; Emergency Provider Emergency Medicine; PCP Internal Medicine
DX: J45.901 Unspecified asthma with (acute) exacerbation (principal); J20.9 Acute bronchitis, unspecified; E11.65 Type 2 diabetes mellitus with hyperglycemia; R06.02 Shortness of breath; R50.9 Fever, unspecified; M79.10 Myalgia, unspecified site; R05 Cough; Z20.822 Contact with and (suspected) exposure to COVID-19; Z79.4 Long term (current) use of insulin; Z79.899 Other long term (current) drug therapy
CPT/HCPCS: 0241U; 36415; 71045; 80048; 80076; 82728; 83605; 83615; 83735; 83880; 84145; 84484; 85025; 85379; 85610; 86140; 87040; 94640; 94644; 96361; 96365; 96375; 99284; 99291; J0696; J2930

== ENCOUNTER 2020-12-31 00:26 | Inpatient (IN) | payer OTHER, SELFPAY ==
[2020-12-31] VITALS (8 sets, daily range): BP systolic 126–151; BP diastolic 66–90; PULSE 88–108; RESP 16–26; TEMP 36.3–37.1; O2SAT 94–99; BMI 39.9
--- NOTE | ~2020-12-31 | XR_ITS ---
EXAMINATION: CHEST 1 VIEW CLINICAL INFORMATION: Shortness of breath. COMPARISON: 12/22/2020. TECHNIQUE: An AP view of the chest is provided. FINDINGS: The cardiac silhouette is not enlarged. The mediastinal and hilar contours are unremarkable. There are neither pleural effusions nor pneumothoraces. There are no consolidations. The osseous structures are unremarkable. XR/XR chest 1V IMPRESSION: No evidence for acute disease.
--- NOTE | 2020-12-31 00:50 | ECG_ITS ---
Test Reason : DIFF BREATHING Blood Pressure : / mmHG Vent. Rate : 094 BPM Atrial Rate : 094 BPM P-R Int : 124 ms QRS Dur : 100 ms QT Int : 360 ms P-R-T Axes : 059 053 031 degrees QTc Int : 450 ms Normal sinus rhythm Normal ECG When compared with ECG of 26-AUG-2020 17:07, No significant change was found Referred By: Kailash Billy Electronically Signed By:Dony Be
--- NOTE | 2020-12-31 00:57 | ED.SOB ---
HPI - SOB/Dyspnea General Chief Complaint: Asthma Stated Complaint: SOB Time Seen by Provider: 12/31/20 00:49 Source: patient Mode of arrival: ambulatory Limitations: no limitations History of Present Illness HPI Narrative: 45-year-old female history of asthma presented today with 2 hours of shortness of breath and worsening of wheezing. Symptoms is progressively getting worse and constant, patient described it as severe, nothing make it better, nothing make it worse, no other associated symptoms in particular no chest pain, patient had 2 other ED visits in the last 10 days for similar presentation, patient just finished a course of outpatient steroids and bronchodilator without improvement of her symptoms. Patient declined fever or chills. No history of smoking. Related Data Home Medications Medication Instructions Recorded Confirmed amlodipine 10 mg tablet 10 mg PO DAILY 12/12/20 12/12/20 empagliflozin 10 mg tablet 10 mg PO QAM 12/12/20 12/12/20 ezetimibe 10 mg tablet 10 mg PO DAILY 12/12/20 12/12/20 gabapentin 100 mg capsule 100 mg PO TID 12/12/20 12/12/20 rosuvastatin 40 mg tablet 40 mg PO BEDTIME 12/12/20 12/12/20 sitagliptin 100 mg tablet 100 mg PO DAILY 12/12/20 12/12/20 telmisartan 80 1 tab PO DAILY 12/12/20 12/12/20 mg-hydrochlorothiazide 25 mg tablet Previous Rx's Medication Instructions Recorded cephalexin [Keflex] 500 mg PO TID 7 Days #21 cap 08/26/20 ibuprofen 400 mg PO Q6H PRN #20 tab 08/26/20 metformin 500 mg tablet,extended 500 mg PO DAILY #90 tab 12/07/20 release 24 hr insulin pump cartridge #10 ea 12/12/20 blood sugar diagnostic #100 ea 12/13/20 insulin lispro 100 unit/mL 0 - 100 unit SUBCUT DAILY #90 ml 12/14/20 subcutaneous solution albuterol sulfate 0.63 mg INHALATION QID PRN #75 ml 12/22/20 albuterol sulfate 1 inh INHALATION QID PRN #8.5 g 12/22/20 azithromycin See Rx Instructions .ROUTE 12/22/20 .COMPLEX #6 tab nebulizers [AeroEclipse II #1 ea 12/22/20 Nebulizer] prednisone 40 mg PO DAILY 5 Days #10 tab 12/22/20 Allergies Allergy/AdvReac Type Severity Reaction Status Date / Time canagliflozin [Invokana] Allergy Unknown rash Verified 07/06/20 00:00 liraglutide Allergy Unknown rash Verified 07/06/20 00:00 No Known Allergies Allergy Verified 08/26/20 18:00 [No Known Allergies*] animals Allergy Unknown rash Uncoded 07/06/20 00:00 Pt states no known food Allergy Unknown Unknown Uncoded 08/26/20 18:00 allerg Review of Systems Review of Systems: All other systems are reviewed and are negative Constitutional: Reports as per HPI and Reports no additional constitutional complaints Eyes: Reports as per HPI and Reports no additional eye complaints Reports system reviewed and no additional complaints, except as documented Cardiovascular: Reports as per HPI and Reports no additional cardiovascular complaints Respiratory: Reports as per HPI and Reports no additional respiratory complaints Gastrointestinal: Reports as per HPI and Reports no additional gastrointestinal complaints Genitourinary: Reports no additional female genitourinary complaints Musculoskeletal: Reports no additional musculoskeletal complaints Skin/Breast: Reports system reviewed and no additional complaints, except as docu Psychiatric: Reports no additional psychiatric complaints Endocrine: Reports no additional endocrine complaints Hematologic/Lymphatic: Reports no additional hematologic/lymphatic complaints Allergic/Immunologic: Reports no additional allergic/immunologic complaints Reports system reviewed and no additional complaints, except as documented and Reports Abnormal speech present. [facility] Past Medical History Medical History Asthma Diabetes Diabetes type 2, uncontrolled Diabetic 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 with type 2 diabetes mellitus Ectopic Hyperlipidemia Hypertension care home (current) use of insulin Morbid obesity Vitamin D deficiency Surgical History History of surgical procedure on mouth Hx of ectopic Family History Family History Father Diabetes mellitus Mother Diabetes mellitus Ovarian cancer Social History Social History Alcohol intake: never Smoking Status: Never smoker Smoked in Last 30 Days: No Use of substances other than those prescribed or required for medical reasons: No Advance Directives: No Advance Directives Information Provided: No Physical Exam Vital Signs: Vital Signs: Last Vital Signs Temp 98.7 F 12/31/20 00:48 Pulse 96 12/31/20 01:48 Resp 26 H 12/31/20 00:48 BP 135/90 H 12/31/20 00:48 Pulse Ox 96 12/31/20 00:48 Body Mass Index 39.9 Vital signs have been reviewed as appeared to be correct. Blood pressure elevated. Heart rate elevated. Respiration rate elevated. Temperature normal. Oxygen saturation normal. Appearance: In acute respiratory distress, unable to speak in full sentence Head: Normal external exam. Normocephalic. Atraumatic. No Tran signs noted. No raccoon eyes noted Eyes: PERRLA. EOMI. Conjunctiva and sclera normal. Eyelids normal. ENT: TM's Normal. Pharynx normal. Uvula midline. Moist mucous membranes. No trismus noted. No drooling noted. No muffled voice noted. Neck: Normal inspection. Neck supple. FROM. No adenopathy. Thyroid Normal. No meningeal signs. No neck mass noted. CVS: Normal heart rate and rhythm. Heart sound normal. No murmurs noted. Pulses normal throughout. Respiratory: Mild respiratory distress with tachypnea and tachycardia. Decreased breathing sounds bilaterally with diffuse expiratory wheezes, no rales or rhonchi noted. Chest nontender. accessory muscle intercostal usage noted. Abdomen: Soft and nontender. Bowel sounds normal in all 4 quadrants. No distention noted. No organomegaly noted. No visible injury noted. Back: No CVA tenderness. Full range of motion noted. Skin: Skin warm and dry. Normal skin color. Normal skin turgor. No rashes/lesions/lacerations noted. Extremities: No lower extremity edema. Extremities exhibit normal range of motion. Extremities nontender. Neuro: Oriented X 3. No motor deficit. No sensory deficit. Reflexes normal. Course Course Course Narrative: Assessment and plan. This is acute asthma exacerbation, multiple ED visits, finished a course of outpatient steroids, and antibiotic. Patient with history of intubation. Will admit for IV steroids and aggressive bronchodilator therapy. Reevaluation(s) Reevaluation #1: Patient is receiving 1 hour long bronchodilator, Solu-Medrol, magnesium. Breathing start to improve. Time: 01:54 MDM - SOB/Dyspnea Lab Data Attestation: I reviewed the patient's lab results. Result diagrams: 12/31/20 00:57 02/15/21 01:32 Labs: Lab Results 12/31/20 12/31/20 12/31/20 Range/Units 00:57 01:02 01:15 WBC 14.3 H (4.8-10.8) X10*3/uL RBC 5.51 H (4.20-5.50) X10*6/uL Hgb 14.6 (12.0-16.0) g/dl Hct 45.3 (37-47) % MCV 82.2 (80-98) fL MCH 26.5 L (27.0-33.0) pg MCHC 32.2 (31.0-35.0) g/dl RDW 13.9 (11.0-16.0) % Plt Count 328 (160-400) X10*3/uL MPV 9.8 (9.4-12.3) fL Immature Gran % (Auto) 0.3 (0.0-0.4) % Neut % (Auto) 50.7 (45-73) % Lymph % (Auto) 38.5 (20-40) % [place] % (Auto) 5.8 (2-11) % Eos % (Auto) 4.2 H (0-4) % Baso % (Auto) 0.5 (0-2) % Lymph # (Auto) 5.5 H (1.2-4.9) X10*3/uL [place] # (Auto) 0.8 (0.1-1.2) X10*3/uL Eos # (Auto) 0.6 H (0.0-0.4) X10*3/uL Baso # (Auto) 0.1 (0.0-0.2) X10*3/uL Abs Immat Gran (auto) 0.05 H (0.00-0.03) X10*3/uL Absolute Neuts (auto) 7.3 (2.0-8.3) X10*3/uL Absolute Nucleated RBC 0.000 (0.0-0.012) X10*3/uL Nucleated RBC % (auto) 0.0 (0.0-0.2) /100WBC Smear Tech's Comments VERIFIED D-Dimer NG/ML Sodium (135-145) mmol/L Potassium (3.3-5.1) mmol/L Chloride (96-108) mmol/L Carbon Dioxide (22-29) mmol/L Anion Gap (12-20) BUN (9-16) mg/dL Creatinine (0.5-1.4) mg/dL Estim Creat Clear Calc Estimated GFR Random Glucose (60-115) mg/dL Lactic Acid 1.4 (0.5-2.0) mmol/L Calcium (8.4-10.2) mg/dL Total Bilirubin (0.0-1.0) mg/dL Direct Bilirubin (0.0-0.5) mg/dL AST (5-31) U/L ALT (0-31) U/L Alkaline Phosphatase (39-117) U/L Troponin I High Sens (<3.5-17.0) ng/L B-Natriuretic Peptide (<100) pg/mL Total Protein (6.5-8.0) g/dL Albumin (3.5-5.0) g/dL Lipase (8-78) U/L COVID-19 (DANK) Negative (Negative) COVID-19 Clin Com See Note 12/31/20 12/31/20 12/31/20 Range/Units 01:31 01:32 01:32 WBC (4.8-10.8) X10*3/uL RBC (4.20-5.50) X10*6/uL Hgb (12.0-16.0) g/dl Hct (37-47) % MCV (80-98) fL MCH (27.0-33.0) pg MCHC (31.0-35.0) g/dl RDW (11.0-16.0) % Plt Count (160-400) X10*3/uL MPV (9.4-12.3) fL Immature Gran % (Auto) (0.0-0.4) % Neut % (Auto) (45-73) % Lymph % (Auto) (20-40) % [place] % (Auto) (2-11) % Eos % (Auto) (0-4) % Baso % (Auto) (0-2) % Lymph # (Auto) (1.2-4.9) X10*3/uL [place] # (Auto) (0.1-1.2) X10*3/uL Eos # (Auto) (0.0-0.4) X10*3/uL Baso # (Auto) (0.0-0.2) X10*3/uL Abs Immat Gran (auto) (0.00-0.03) X10*3/uL Absolute Neuts (auto) (2.0-8.3) X10*3/uL Absolute Nucleated RBC (0.0-0.012) X10*3/uL Nucleated RBC % (auto) (0.0-0.2) /100WBC Smear Tech's Comments D-Dimer < 200 NG/ML Sodium 137 (135-145) mmol/L Potassium 4.3 (3.3-5.1) mmol/L Chloride 102 (96-108) mmol/L Carbon Dioxide 23 (22-29) mmol/L Anion Gap 16 (12-20) BUN 8 L (9-16) mg/dL Creatinine 0.64 (0.5-1.4) mg/dL Estim Creat Clear Calc 142.7 Estimated GFR > 60 Random Glucose 285 H (60-115) mg/dL Lactic Acid (0.5-2.0) mmol/L Calcium 8.9 (8.4-10.2) mg/dL Total Bilirubin 0.7 (0.0-1.0) mg/dL Direct Bilirubin 0.2 (0.0-0.5) mg/dL AST 15 (5-31) U/L ALT 19 (0-31) U/L Alkaline Phosphatase 97 (39-117) U/L Troponin I High Sens < 3.5 (<3.5-17.0) ng/L B-Natriuretic Peptide 33 (<100) pg/mL Total Protein 7.0 (6.5-8.0) g/dL Albumin 3.9 (3.5-5.0) g/dL Lipase 23 (8-78) U/L COVID-19 (DANK) (Negative) COVID-19 Clin Com Imaging Data Chest x-ray: Radiologist's impression: No acute pathology. ECG Data Interpretation: Normal sinus rhythm at 94 beats per minute, normal intervals, normal axis deviation, no ST-T changes. Critical Care Time Critical Care Time Critical Care Time: Yes Total Critical Care Time: 45 Attestation: I spent 45 minutes providing critical care service to the patient, this including time spent at the bedside to evaluate the patient, reassess the patient, monitoring vital signs, review labs, and radiographic studies, counseling the patient/family, discussing the case with consultants, disposition the patient. Discharge Plan Discharge Clinical Impression: Asthma Qualifiers: Asthma severity: severe Asthma persistence: persistent Asthma complication type: with acute exacerbation Qualified Code(s): J45.51 - Severe persistent asthma with (acute) exacerbation Patient Disposition: Admitted As Inpatient
[2020-12-31 01:01] LABS: Basophils Absolute Auto 0.1 X10*3/uL (0.0-0.2); Basophils Percent Auto 0.5 % (0-2); Eosinophils Absolute Auto 0.6 X10*3/uL (0.0-0.4); Eosinophils Percent Auto 4.2 % (0-4); Hematocrit 45.3 % (37-47); Hemoglobin 14.6 g/dl (12.0-16.0); Imm Gran Abs Auto 0.05 X10*3/uL (0.00-0.03); Imm Gran Pct Auto 0.3 % (0.0-0.4); Lymphocytes Absolute Auto 5.5 X10*3/uL (1.2-4.9); Lymphocytes Percent Auto 38.5 % (20-40); Mean Corpuscular HGB Conc 32.2 g/dl (31.0-35.0); Mean Corpuscular Hemoglobin 26.5 pg (27.0-33.0); Mean Corpuscular Volume 82.2 fL (80-98); Mean Platelet Volume 9.8 fL (9.4-12.3); Monocytes Absolute Auto 0.8 X10*3/uL (0.1-1.2); Monocytes Percent Auto 5.8 % (2-11); Neutrophils Absolute Auto 7.3 X10*3/uL (2.0-8.3); Neutrophils Percent Auto 50.7 % (45-73); Platelet Count 328 X10*3/uL (160-400); Red Blood Count 5.51 X10*6/uL (4.20-5.50); Red Cell Distribution Width 13.9 % (11.0-16.0); SCAN SMEAR FLAG 1; White Blood Count 14.3 X10*3/uL (4.8-10.8)
[2020-12-31 01:04] LABS: MANUAL DIFF FLAG SCAN
[2020-12-31] MEDS: methylPREDNISolone Sod Succ/PF 125 MG/2 ML VIAL IVPUSH (01:04)
[2020-12-31] MEDS: Magnesium Sulfate/H2O 2 GM/50 ML PIGGYBACK IV (01:04)
[2020-12-31 01:22] LABS: SLIDE REVIEW VERIFIED
[2020-12-31 01:23] LABS: COVID-19 Test Negative (Negative)
[2020-12-31 01:39] LABS: Lactic Acid 1.4 mmol/L (0.5-2.0)
[2020-12-31] MEDS: Albuterol Sulfate (0.083%) 2.5 MG/3 ML VIAL.NEB 7.5 MG INHALE (01:42)
[2020-12-31 01:45] LABS: D Dimer < 200 NG/ML
[2020-12-31 02:03] LABS: Alanine Aminotransferase 19 U/L (0-31); Albumin Level 3.9 g/dL (3.5-5.0); Alkaline Phosphatase 97 U/L (39-117); Anion Gap 16 (12-20); Aspartate Amino Transferase 15 U/L (5-31); Bilirubin Direct 0.2 mg/dL (0.0-0.5); Bilirubin Total 0.7 mg/dL (0.0-1.0); Blood Urea Nitrogen 8 mg/dL (9-16); Calcium 8.9 mg/dL (8.4-10.2); Carbon Dioxide 23 mmol/L (22-29); Chloride 102 mmol/L (96-108); Creatinine Clr Calc Pharmacy 142.7; Estimated Glomerular Filt Rate > 60; Glucose Random 285 mg/dL (60-115); Lipase 23 U/L (8-78); Potassium 4.3 mmol/L (3.3-5.1); Sodium 137 mmol/L (135-145)
[2020-12-31 02:05] LABS: B Type Natriuretic Peptide 33 pg/mL (<100); Troponin-I High Sensitivity < 3.5 ng/L (<3.5-17.0)
--- NOTE | 2020-12-31 05:22 | PM.IMHP ---
History of Present Illness Date of Service: 12/31/20 Chief Complaint: Shortness of breath and wheezing This is a 45-year-old female with past medical history of diabetes, hypertension, asthma, who presents to the hospital with complaints of shortness of breath. Patient reports that she has started having symptoms about a a week ago and presented to the hospital 3 times with shortness of breath and was sent home on various management but has not improved. Patient was recently seen in the ED and was sent home on 40 mg of prednisone, returns today stating that her shortness of breath has remained, she is coughing, she is having wheezing. She denies any fever chills, no abdominal pain, no headache, no change in vision, no chest pain, no nausea vomiting, diarrhea constipation, no urinary symptoms and no lower extremity edema. No recent sick contact or travel On arrival to the ED patient hemodynamically stable but has a heart rate of 108, blood pressure of 135/90, respiratory rate of 26, satting 96% on room air. Lab significant for WBC count 14.3, otherwise unremarkable. 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 Morbid obesity Vitamin D deficiency Family History Father Diabetes mellitus Mother Diabetes mellitus Ovarian cancer Surgical History History of surgical procedure on mouth Hx of ectopic Social History Alcohol intake: never Smoking Status: Never smoker Smoked in Last 30 Days: No Use of substances other than those prescribed or required for medical reasons: No Advance Directives: No Advance Directives Information Provided: No Meds Allergies Allergy/AdvReac Type Severity Reaction Status Date / Time canagliflozin [Invokana] Allergy Unknown rash Verified 07/06/20 00:00 liraglutide Allergy Unknown rash Verified 07/06/20 00:00 No Known Allergies Allergy Verified 08/26/20 18:00 [No Known Allergies*] animals Allergy Unknown rash Uncoded 07/06/20 00:00 Pt states no known food Allergy Unknown Unknown Uncoded 08/26/20 18:00 allerg Active Medications: Current Medications Generic Name Dose Route Start Last Admin Trade Name Malcolm PRN Reason Stop Dose Admin Pharmacy Consult 1 each 12/31/20 00:49 Consult Rx Perform Med Rec MISCELLANE ONCE PRN Consult order Home Medications Medication Instructions Recorded Confirmed Last Taken Type amlodipine 10 mg tablet 10 mg PO DAILY 12/12/20 12/31/20 1 Day Ago History ~12/30/20 empagliflozin 10 mg tablet 10 mg PO QAM 12/12/20 12/31/20 1 Day Ago History ~12/30/20 ezetimibe 10 mg tablet 10 mg PO DAILY 12/12/20 12/31/20 1 Day Ago History ~12/30/20 gabapentin 100 mg capsule 100 mg PO QPM 12/12/20 12/31/20 1 Day Ago History ~12/30/20 rosuvastatin 40 mg tablet 40 mg PO BEDTIME 12/12/20 12/31/20 1 Day Ago History ~12/30/20 sitagliptin 100 mg tablet 100 mg PO DAILY 12/12/20 12/31/20 1 Day Ago History ~12/30/20 telmisartan 80 1 tab PO DAILY 12/12/20 12/12/20 Unknown History mg-hydrochlorothiazide 25 mg tablet Physical Exam Vital Signs and Narrative: Vital Signs: Last Vital Signs Temp 98.7 F 12/31/20 00:48 Pulse 88 12/31/20 03:58 Resp 20 12/31/20 03:58 BP 126/85 12/31/20 03:58 Pulse Ox 96 12/31/20 03:58 Body Mass Index 39.9 Const: General: cooperative and no acute distress Orientation/consciousness: patient oriented x3 Eyes: General: appearance normal, both eyes and all related structures Resp: Effort & Inspection: normal respiratory effort, able to speak in complete sentences and audible wheezes Cardio: Rate: regular rate Rhythm: regular rhythm GI: Palpation (GI): Soft to palpation Auscultation: normal bowel sounds Skin: General skin exam: no rashes or lesions noted Neuro: General: patient oriented x3 Cognition (Neuro): normal cognition Extrem: General: Yes normal to inspection and Yes no pedal edema Results Labs CBC and Chem 7: 12/31/20 00:57 12/31/20 01:32 Labs: Laboratory Results - last 24 hr 12/31/20 12/31/20 12/31/20 00:57 01:02 01:15 MCV 82.2 MCH 26.5 L MCHC 32.2 RDW 13.9 Plt Count 328 MPV 9.8 Immature Gran % (Auto) 0.3 Neut % (Auto) 50.7 Lymph % (Auto) 38.5 [place] % (Auto) 5.8 Eos % (Auto) 4.2 H Baso % (Auto) 0.5 Lymph # (Auto) 5.5 H [place] # (Auto) 0.8 Eos # (Auto) 0.6 H Baso # (Auto) 0.1 Abs Immat Gran (auto) 0.05 H Absolute Neuts (auto) 7.3 Absolute Nucleated RBC 0.000 Nucleated RBC % (auto) 0.0 Smear Tech's Comments VERIFIED D-Dimer Anion Gap Estim Creat Clear Calc Estimated GFR Random Glucose Lactic Acid 1.4 Calcium Total Bilirubin Direct Bilirubin AST ALT Alkaline Phosphatase Troponin I High Sens B-Natriuretic Peptide Total Protein Albumin Lipase COVID-19 (DANK) Negative COVID-19 Clin Com See Note 12/31/20 12/31/20 12/31/20 01:31 01:32 01:32 MCV MCH MCHC RDW Plt Count MPV Immature Gran % (Auto) Neut % (Auto) Lymph % (Auto) [place] % (Auto) Eos % (Auto) Baso % (Auto) Lymph # (Auto) [place] # (Auto) Eos # (Auto) Baso # (Auto) Abs Immat Gran (auto) Absolute Neuts (auto) Absolute Nucleated RBC Nucleated RBC % (auto) Smear Tech's Comments D-Dimer < 200 Anion Gap 16 Estim Creat Clear Calc 142.7 Estimated GFR > 60 Random Glucose 285 H Lactic Acid Calcium 8.9 Total Bilirubin 0.7 Direct Bilirubin 0.2 AST 15 ALT 19 Alkaline Phosphatase 97 Troponin I High Sens < 3.5 B-Natriuretic Peptide 33 Total Protein 7.0 Albumin 3.9 Lipase 23 COVID-19 (DANK) COVID-19 Clin Com Imaging Radiologist's Impressions: Impressions Chest X-Ray 12/31/20 00:50 IMPRESSION: No evidence for acute disease. Assessment and Plan (1) Hypertension: Qualifiers: Hypertension type: essential hypertension Qualified Code(s): I10 - Essential (primary) hypertension Status: Acute (2) Leukocytosis: Status: Acute (3) Asthma exacerbation: Status: Acute (4) Diabetes type 2, uncontrolled: Qualifiers: Glycemic state: with hyperglycemia Qualified Code(s): E11.65 - Type 2 diabetes mellitus with hyperglycemia Status: Acute This is a 45-year-old female who presents to the hospital with complaints of asthma exacerbation. # asthma exacerbation - was treated as outpatient multiple times with prednisone a continues to complain of symptoms, has been seen in the ED 3 times over the past week - COVID-19 PCR negative, chest x-ray negative for any evidence of new - will start her on Solu-Medrol 40 IV b.i.d., DuoNeb scheduled and p.r.n. - monitor respiratory status # leukocytosis - most likely secondary to steroid use - follow CBC # hypertension - stable - continue amlodipine, # diabetes mellitus - hold all p.o. meds - start on low dose sliding scale insulin - diabetic diet Prophylaxis: Lovenox
--- NOTE | 2020-12-31 08:36 | PC.NURSE ---
pt states that she has left sided chest pain with deep respirations. states she feels short of breath as if she cant take a full deep breath. pt does not appear in respiratory distress, respiratory rate and rhythm within normal limits, respiratory effort is non-labored. lung sounds clear bilaterally in all rios. no wheezing noted. pt checked her own POC, blood sugar is 265, pt self administered 23.25 units via her own insulin pump
[2020-12-31] MEDS: Gabapentin 100 MG CAPSULE PO (09:43)
[2020-12-31] MEDS: 0.9 % Sodium Chloride Flush 3 ML SYRINGE IVFLUSH (09:43)
[2020-12-31] MEDS: amLODIPine Besylate 10 MG TABLET PO (09:54)
[2020-12-31] MEDS: Ezetimibe 10 MG TABLET PO (09:55)
[2020-12-31] MEDS: Enoxaparin Sodium 40 MG/0.4 ML SYRINGE SUBCUT (09:56)
--- NOTE | 2020-12-31 09:56 | PM.DS ---
DS: Providers Provider Date of Service: 12/31/20 Date of admission: 12/31/20 05:22 Primary care physician: Unknown Physician DS: Diagnosis Discharge Diagnosis (1) Hypertension: Status: Acute (2) Leukocytosis: Status: Acute (3) Asthma exacerbation: Status: Acute (4) Diabetes type 2, uncontrolled: Status: Acute DS: Medications Discharge Medications Home Medications: Home Medications Medication Instructions Recorded Confirmed amlodipine 10 mg tablet 10 mg PO DAILY 12/12/20 12/31/20 empagliflozin 10 mg tablet 10 mg PO QAM 12/12/20 12/31/20 ezetimibe 10 mg tablet 10 mg PO DAILY 12/12/20 12/31/20 gabapentin 100 mg capsule 100 mg PO QPM 12/12/20 12/31/20 rosuvastatin 40 mg tablet 40 mg PO BEDTIME 12/12/20 12/31/20 sitagliptin 100 mg tablet 100 mg PO DAILY 12/12/20 12/31/20 telmisartan 80 1 tab PO DAILY 12/12/20 12/12/20 mg-hydrochlorothiazide 25 mg tablet Previous Rx's Medication Instructions Recorded metformin 500 mg tablet,extended 500 mg PO DAILY #90 tab 12/07/20 release 24 hr insulin pump cartridge #10 ea 12/12/20 blood sugar diagnostic #100 ea 12/13/20 insulin lispro 100 unit/mL 0 - 100 unit SUBCUT DAILY #90 ml 12/14/20 subcutaneous solution AeroEclipse II Nebulizer #1 ea 12/22/20 albuterol sulfate 1 inh INHALATION QID PRN #8.5 g 12/22/20 prednisone 40 mg PO DAILY 5 Days #10 tab 12/22/20 albuterol sulfate 0.63 mg INHALATION QID PRN #75 ml 12/31/20 nebulizers [Compact Compressor #1 ea 12/31/20 Nebulizer] prednisone 40 mg PO DAILY #10 tab 12/31/20 DS: Summary Hospital Course Hospital Course: patient was admitted for sob due to asthma exacerbation. she was given steroids and nebs and dramatically improved. posible triggers include animal allergy, patient will be discharged on prednisone and shouyld consider test of animal avoidance. Time Spent with Patient Time attestation: Total time spent providing and/or coordinating discharge services: Discharge coordination time: Greater than 30 minutes Physical Exam Vital Signs: Vital Signs: Last Vital Signs Temp 97.6 F 02/15/21 08:32 Pulse 90 12/31/20 08:32 Resp 16 12/31/20 08:32 BP 133/82 12/31/20 08:32 Pulse Ox 96 12/31/20 08:32 Body Mass Index 39.9 General: AO X 3, no acute distress Resp: minimal wheeze CVS: S1,S2,RRR GI: soft, non tender, non distended Neuro: motor grossly intact Psych: appropriate affect DS: Data Data Completed and Pending Labs on day of discharge: Laboratory Results - last 24 hr 12/31/20 12/31/20 12/31/20 00:57 01:02 01:15 WBC 14.3 H RBC 5.51 H Hgb 14.6 Hct 45.3 MCV 82.2 MCH 26.5 L MCHC 32.2 RDW 13.9 Plt Count 328 MPV 9.8 Immature Gran % (Auto) 0.3 Neut % (Auto) 50.7 Lymph % (Auto) 38.5 [place] % (Auto) 5.8 Eos % (Auto) 4.2 H Baso % (Auto) 0.5 Lymph # (Auto) 5.5 H [place] # (Auto) 0.8 Eos # (Auto) 0.6 H Baso # (Auto) 0.1 Abs Immat Gran (auto) 0.05 H Absolute Neuts (auto) 7.3 Absolute Nucleated RBC 0.000 Nucleated RBC % (auto) 0.0 Smear Tech's Comments VERIFIED D-Dimer Sodium Potassium Chloride Carbon Dioxide Anion Gap BUN Creatinine Estim Creat Clear Calc Estimated GFR Random Glucose Lactic Acid 1.4 Calcium Total Bilirubin Direct Bilirubin AST ALT Alkaline Phosphatase Troponin I High Sens B-Natriuretic Peptide Total Protein Albumin Lipase COVID-19 (DANK) Negative COVID-19 Clin Com See Note 12/31/20 12/31/20 12/31/20 01:31 01:32 01:32 WBC RBC Hgb Hct MCV MCH MCHC RDW Plt Count MPV Immature Gran % (Auto) Neut % (Auto) Lymph % (Auto) [place] % (Auto) Eos % (Auto) Baso % (Auto) Lymph # (Auto) [place] # (Auto) Eos # (Auto) Baso # (Auto) Abs Immat Gran (auto) Absolute Neuts (auto) Absolute Nucleated RBC Nucleated RBC % (auto) Smear Tech's Comments D-Dimer < 200 Sodium 137 Potassium 4.3 Chloride 102 Carbon Dioxide 23 Anion Gap 16 BUN 8 L Creatinine 0.64 Estim Creat Clear Calc 142.7 Estimated GFR > 60 Random Glucose 285 H Lactic Acid Calcium 8.9 Total Bilirubin 0.7 Direct Bilirubin 0.2 AST 15 ALT 19 Alkaline Phosphatase 97 Troponin I High Sens < 3.5 B-Natriuretic Peptide 33 Total Protein 7.0 Albumin 3.9 Lipase 23 COVID-19 (DANK) COVID-19 Clin Com Discharge Plan Discharge Patient Disposition: Home, Self-Care Referrals: Physician,Unknown [Primary Care Provider] - Discharge Medications: New (DME) Compact Compressor Nebulizer Misc See Rx Instructions .ROUTE .MEDSUPPLY Qty: 1 RF: 0 prednisone 20 mg tablet 40 mg PO DAILY Qty: 10 RF: 0 Continued metformin 500 mg tablet extended release 24 hr 500 mg PO DAILY Qty: 90 RF: 1 (DME) Contour Next Test Strips Strip See Rx Instructions .ROUTE .MEDSUPPLY Qty: 100 RF: 6 insulin lispro [Humalog U-100 Insulin] 100 unit/mL solution 0 - 100 unit subcut DAILY Qty: 90 RF: 1 prednisone 20 mg tablet 40 mg PO DAILY 5 Days Qty: 10 RF: 0 (DME) AeroEclipse II Nebulizer Misc See Rx Instructions .ROUTE .MEDSUPPLY Qty: 1 RF: 0 albuterol sulfate 90 mcg/actuation HFA aerosol inhaler 1 inh inhalation QID PRN (Reason: shortness of breath or wheezing) Qty: 8.5 RF: 0 albuterol sulfate 0.63 mg/3 mL solution for nebulization 0.63 mg inhalation QID PRN (Reason: shortness of breath or wheezing) Qty: 75 RF: 0 empagliflozin 10 mg tablet 10 mg PO QAM RF: 0 rosuvastatin 40 mg tablet 40 mg PO BEDTIME RF: 0 ezetimibe 10 mg tablet 10 mg PO DAILY RF: 0 telmisartan-hydrochlorothiazid 80-25 mg tablet 1 tab PO DAILY RF: 0 amlodipine 10 mg tablet 10 mg PO DAILY RF: 0 sitagliptin 100 mg tablet 100 mg PO DAILY RF: 0 gabapentin 100 mg capsule 100 mg PO QPM RF: 0 (DME) Omnipod Dash 5 Pack Pod Cartridge See Rx Instructions .ROUTE .MEDSUPPLY Qty: 10 RF: 6 Discharge Orders: Discharge Order (Routine); Ordered 12/31/20 Ordered By: Erik Iqbal Activity on Discharge: As tolerated Stand Alone Forms: Patient Portal Discharge page Visit Report Forms: Patient Portal Discharge page Care Plan Goals: recovery Health Concerns: asthma Plan of Treatment: prednisone, nebulizer, avoid triggers, follow up pcp, consider pulmonary eval
--- NOTE | 2020-12-31 10:09 | PC.NURSE ---
pt was desatting to 91% on room air, oxygen NC reapplied with flow rate of 2L. 02 sat now up to 96% on 2L NC. md harden
[2020-12-31] MEDS: Albuterol/Iprat 2.5/0.5MG 3 ML AMPUL.NEB INHALE (11:27)
--- NOTE | 2020-12-31 12:55 | PC.NURSE ---
pt checked POC at 12:50, POC was 234 and pt self administered 6.7 units via her own insulin pump. pt had not received lunch yet and insulin dose determined by pump was on the basis that she was not eating lunch. lunch arrived to pt after 6.7 units given and patient verbalized that she would have to check her blood sugar again and correct as necessary. pt also mentioned that she did not get her Metformin with her morning meds. After checking the MAR, metformin was not listed so med rec was done and Metformin 500mg extended release was added. messaged and requested they update med rec and questioned if patient should take their own metformin that they brought from home at this time. no new orders at this time.
== END 2020-12-31 13:25 | disposition home or self-care (01) | DRG 141 ==
LOC: HO.ED 01:22 → HO.EDOVER 05:38
PROVIDERS: Admitting Provider Internal Medicine; Emergency Provider Emergency Medicine; Visit Provider Internal Medicine
DX: J45.901 Unspecified asthma with (acute) exacerbation (principal); E11.42 Type 2 diabetes mellitus with diabetic 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; E11.65 Type 2 diabetes mellitus with hyperglycemia; I10 Essential (primary) hypertension; D72.829 Elevated white blood cell count, unspecified; Z20.822 Contact with and (suspected) exposure to COVID-19; Z79.4 Long term (current) use of insulin; Z79.52 Long term (current) use of systemic steroids; Z79.899 Other long term (current) drug therapy
CPT/HCPCS: 36415; 71045; 80048; 80076; 83605; 83690; 83880; 84484; 85025; 85379; 87040; 87635; 93005; 94640; 94644; 96365; 96366; 96375; 99285; 99291; J1650; J2920; J2930; J3475

== ENCOUNTER 2021-02-05 10:37 | Outpatient (REF) | payer OTHER, SELFPAY ==
[2021-02-05 12:24] LABS: Alanine Aminotransferase 16 U/L (0-31); Alkaline Phosphatase 93 U/L (39-117); Anion Gap 15 (12-20); Aspartate Amino Transferase 15 U/L (5-31); Bilirubin Total 1.1 mg/dL (0.0-1.0); Blood Urea Nitrogen 6 mg/dL (9-16); Carbon Dioxide 26 mmol/L (22-29); Chloride 104 mmol/L (96-108); Cholesterol 188 mg/dL; Estimated Glomerular Filt Rate > 60; Glucose Random 100 mg/dL (60-115); HDL Cholesterol 53 mg/dL; LDL Cholesterol Calculated 115 mg/dl; Sodium 141 mmol/L (135-145); Total Protein 6.8 g/dL (6.5-8.0); Triglycerides 102 mg/dL
[2021-02-05 12:49] LABS: Estimated Average Glucose 246 mg/dL; Hemoglobin A1c % 10.2 %
== END 2021-02-05 10:38 | disposition home or self-care (01) ==
LOC: HO.LAB 10:37
PROVIDERS: PCP Internal Medicine; Visit Provider Internal Medicine
DX: E11.65 Type 2 diabetes mellitus with hyperglycemia (principal); E78.00 Pure hypercholesterolemia, unspecified; I10 Essential (primary) hypertension; Z68.41 Body mass index [BMI] 40.0-44.9, adult
CPT/HCPCS: 36415; 80053; 80061; 83036

== ENCOUNTER 2021-02-15 12:40 | Outpatient (REF) | payer OTHER, SELFPAY ==
--- NOTE | ~2021-02-15 | MM_ITS ---
EXAMINATION: MM SCREENING DIGITAL BREAST TOMOSYNTHESIS, BILATERAL CLINICAL INFORMATION: Screening. Asymptomatic. The lifetime risk of breast cancer based on the Tyrer-Cuzick Model is 13%. COMPARISON: Mammography: 06/06/2019, 11/17/2018, 10/29/2018, 10/02/2017 TECHNIQUE: Digital breast tomosynthesis is performed in both the craniocaudal and mediolateral oblique views along with computer-aided detection (CAD). Synthesized 2D images are generated from the tomosynthesis. FINDINGS: There are scattered areas of fibroglandular density (ACR BI-RADS breast composition Category b). There are no significant masses, abnormal calcifications, or other abnormalities. Suspected regressing cyst left breast is no longer clearly visualized. There is a stable circumscribed nodule posterior upper outer right breast likely intraparenchymal node similar to prior exams. MM/MM tomosynthesis screening BI IMPRESSION: No mammographic evidence of malignancy. ASSESSMENT: BI-RADS 2: Benign RECOMMENDATION: Routine annual mammography screening. This patient's information was entered into a reminder system with a target due date for their next mammogram.
== END 2021-02-15 12:41 | disposition home or self-care (01) ==
LOC: HO.MAMMO 12:40
PROVIDERS: PCP Internal Medicine; Visit Provider Internal Medicine
DX: Z12.31 Encounter for screening mammogram for malignant neoplasm of breast (principal)
CPT/HCPCS: 77063; 77067

== ENCOUNTER → 2021-02-26 15:12 | Outpatient (BNVA) | payer OTHER, SELFPAY | PROVIDERS: PCP Internal Medicine | DX: Z11.1 Encounter for screening for respiratory tuberculosis (principal) ==

== ENCOUNTER → 2021-03-13 09:41 | Outpatient (BNVA) | payer OTHER, SELFPAY | PROVIDERS: Visit Provider Internal Medicine Endocrinology, Diabetes & Metabolism | DX: E11.65 Type 2 diabetes mellitus with hyperglycemia (principal); E11.42 Type 2 diabetes mellitus with diabetic 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; Z79.4 Long term (current) use of insulin; I10 Essential (primary) hypertension; E78.00 Pure hypercholesterolemia, unspecified; E66.01 Morbid (severe) obesity due to excess calories; E55.9 Vitamin D deficiency, unspecified | CPT/HCPCS: 82947; 99212 ==

== ENCOUNTER 2021-05-14 07:58 | Outpatient (REF) | payer OTHER, SELFPAY ==
[2021-05-14 08:54] LABS: Estimated Average Glucose 252 mg/dL; Hemoglobin A1c % 10.4 %
[2021-05-14 09:08] LABS: Alanine Aminotransferase 14 U/L (0-31); Albumin Level 4.1 g/dL (3.5-5.0); Alkaline Phosphatase 99 U/L (39-117); Anion Gap 13 (12-20); Aspartate Amino Transferase 13 U/L (5-31); Bilirubin Total 0.9 mg/dL (0.0-1.0); Blood Urea Nitrogen 8 mg/dL (9-16); Calcium 9.1 mg/dL (8.4-10.2); Carbon Dioxide 23 mmol/L (22-29); Chloride 109 mmol/L (96-108); Cholesterol 154 mg/dL; Estimated Glomerular Filt Rate > 60; Glucose Random 173 mg/dL (60-115); HDL Cholesterol 52 mg/dL; LDL Cholesterol Calculated 84 mg/dl; Potassium 4.1 mmol/L (3.3-5.1); Sodium 141 mmol/L (135-145); Total Protein 6.9 g/dL (6.5-8.0); Triglycerides 94 mg/dL
== END 2021-05-14 07:59 | disposition home or self-care (01) ==
LOC: HO.LAB 07:58
PROVIDERS: PCP Internal Medicine; Visit Provider Internal Medicine
DX: E11.9 Type 2 diabetes mellitus without complications (principal); E78.00 Pure hypercholesterolemia, unspecified; J45.998 Other asthma
CPT/HCPCS: 36415; 80053; 80061; 83036

== ENCOUNTER 2021-06-13 16:08 | Outpatient (REF) | payer OTHER, SELFPAY | END 2021-06-13 16:09 | disposition home or self-care (01) | LOC: HO.LNP 16:08 | PROVIDERS: Visit Provider Obstetrics & Gynecology Gynecology | DX: N93.8 Other specified abnormal uterine and vaginal bleeding (principal) | CPT/HCPCS: 88305 ==

== ENCOUNTER 2021-06-21 15:49 | Outpatient (REF) | payer OTHER, SELFPAY ==
[2021-06-21 16:54] LABS: MANUAL DIFF FLAG NO
[2021-06-21 17:13] LABS: Basophils Percent Auto 0.3 % (0-2); Eosinophils Absolute Auto 0.1 X10*3/uL (0.0-0.4); Eosinophils Percent Auto 0.7 % (0-4); Hemoglobin 13.3 g/dl (12.0-16.0); Imm Gran Abs Auto 0.03 X10*3/uL (0.00-0.03); Imm Gran Pct Auto 0.3 % (0.0-0.4); Lymphocytes Absolute Auto 3.2 X10*3/uL (1.2-4.9); Lymphocytes Percent Auto 36.2 % (20-40); Mean Corpuscular HGB Conc 32.4 g/dl (31.0-35.0); Mean Corpuscular Hemoglobin 26.4 pg (27.0-33.0); Mean Corpuscular Volume 81.3 fL (80-98); Mean Platelet Volume 10.7 fL (9.4-12.3); Monocytes Absolute Auto 0.5 X10*3/uL (0.1-1.2); Monocytes Percent Auto 5.7 % (2-11); Neutrophils Percent Auto 56.8 % (45-73); Platelet Count 325 X10*3/uL (160-400); Red Blood Count 5.04 X10*6/uL (4.20-5.50); Red Cell Distribution Width 14.6 % (11.0-16.0); White Blood Count 8.8 X10*3/uL (4.8-10.8)
[2021-06-22 18:21] LABS: Follicle Stimulating Hormone 8.3 mIU/mL; Lutenizing Hormone 1.6 mIU/mL
[2021-07-04 21:11] LABS: Estradiol, Ultrasensitive 16 pg/mL
== END 2021-06-21 15:50 | disposition home or self-care (01) ==
LOC: HO.LAB 15:49
PROVIDERS: PCP Internal Medicine; Visit Provider Obstetrics & Gynecology Gynecology
DX: N93.8 Other specified abnormal uterine and vaginal bleeding (principal)
CPT/HCPCS: 36415; 82670; 82681; 83001; 83002; 85025

== ENCOUNTER 2021-06-29 14:49 | Emergency (ER) | payer OTHER, SELFPAY ==
--- NOTE | ~2021-06-29 | XR_ITS ---
EXAMINATION: XR CHEST CLINICAL INFORMATION: Shortness of breath. COMPARISON: Chest done on 12/31/2020. TECHNIQUE: Frontal view of the chest was obtained. FINDINGS: No significant abnormality is noted involving the heart, lungs, mediastinum, bony thorax or soft tissues. XR/XR chest 1V IMPRESSION: Unremarkable examination.
[2021-06-29 14:53] VITALS: BP 148/86; PULSE 105; RESP 20; TEMP 37.2; O2SAT 94; BMI 38.8
--- NOTE | 2021-06-29 15:45 | ECG_ITS ---
Test Reason : DYSPNEA Blood Pressure : / mmHG Vent. Rate : 095 BPM Atrial Rate : 095 BPM P-R Int : 132 ms QRS Dur : 096 ms QT Int : 382 ms P-R-T Axes : 050 052 025 degrees QTc Int : 480 ms Normal sinus rhythm with sinus arrhythmia Prolonged QT Abnormal ECG When compared with ECG of 31-DEC-2020 01:12, No significant change was found Referred By: Debbie Alvarado Electronically Signed By:IVETH ELLIOTT
--- NOTE | 2021-06-29 16:10 | ED.SOB ---
HPI - SOB/Dyspnea General Chief Complaint: Dyspnea Stated Complaint: SOB Time Seen by Provider: 06/29/21 15:43 Source: patient Mode of arrival: ambulatory Limitations: no limitations History of Present Illness HPI Narrative: 45 y/o female with history of asthma, diabetes on insulin pump, obesity, HTN, HLD who presents with 2-3 days of SOB associated with runny nose, nasal congestion and watery eyes. She reports at baseline her asthma is usually undre good control and she does not need to use her rescue inhaler very often. She used it yesterday and today with minimal improvement in her SOB. She has no cough or chest pain. No fever or chills. She reports her daughter has been sick and in and out of the hospital. Patient is vaccinated against COVID. She had extra prednisone at home and took a dose this morning. MD elicited complaint: shortness of breath and anxiety Pertinent past history: asthma and diabetes Onset (ago): day(s) (3) Timing: constant Severity: moderate Exacerbating factors: exertion Relieving factors: rest and bronchodilators Known history of: asthma Treatment prior to arrival: bronchodilator Related Data Home oxygen amount: none Home Medications Medication Instructions Recorded Confirmed amlodipine 10 mg tablet 10 mg PO DAILY 12/12/20 03/13/21 ezetimibe 10 mg tablet 10 mg PO DAILY 12/12/20 03/13/21 gabapentin 100 mg capsule 100 mg PO QPM 12/12/20 03/13/21 telmisartan 80 1 tab PO DAILY 12/12/20 03/13/21 mg-hydrochlorothiazide 25 mg tablet Previous Rx's Medication Instructions Recorded blood sugar diagnostic (Contour #100 ea 12/13/20 Next Test Strips) albuterol sulfate 90 mcg/actuation 1 inh INHALATION QID PRN #8.5 g 12/22/20 aerosol inhaler nebulizers (AeroEclipse II #1 ea 12/22/20 Nebulizer) prednisone 20 mg tablet 40 mg PO DAILY 5 Days #10 tab 12/22/20 albuterol sulfate 0.63 mg/3 mL 0.63 mg INHALATION QID PRN #75 ml 12/31/20 solution for nebulization nebulizers (Compact Compressor #1 ea 12/31/20 Nebulizer) prednisone 20 mg tablet 40 mg PO DAILY #10 tab 12/31/20 empagliflozin 10 mg tablet 10 mg PO QAM 30 Days #30 tab 03/13/21 insulin lispro 100 unit/mL 0 - 100 unit SUBCUT DAILY #90 ml 03/13/21 subcutaneous solution (Humalog U-100 Insulin) insulin pump cartridge (Omnipod #10 ea 03/13/21 Dash 5 Pack Pod) metformin 500 mg tablet,extended 500 mg PO DAILY #90 tab 03/13/21 release 24 hr rosuvastatin 40 mg tablet 40 mg PO BEDTIME 90 Days #90 tab 03/13/21 sitagliptin 100 mg tablet 100 mg PO DAILY 90 Days #90 tab 03/13/21 blood-glucose transmitter (Dexcom 1 ea MISCELLANEOUS DIRECTED 90 04/16/21 G6 Transmitter) Days #1 cap Dexcom G6 Sensor (blood-glucose 1 ea TOPICAL DAILY 30 Days #3 ea NS 06/20/21 sensor) cetirizine 10 mg tablet (Zyrtec) 10 mg PO DAILY #14 tab 06/29/21 fluticasone propionate 50 1 spray INTRANASAL BID #16 g 06/29/21 mcg/actuation nasal spray,suspension (Flonase Allergy Relief) Allergies Allergy/AdvReac Type Severity Reaction Status Date / Time canagliflozin [Invokana] Allergy Unknown rash Verified 06/29/21 14:59 liraglutide Allergy Unknown rash Verified 06/29/21 14:59 No Known Allergies Allergy Verified 06/29/21 14:59 [No Known Allergies*] animals Allergy Unknown rash Uncoded 06/29/21 14:59 Pt states no known food Allergy Unknown Unknown Uncoded 06/29/21 14:59 allerg Review of Systems Constitutional: Constitutional: Denies chills, Denies fever(s) and Denies headache(s) Eyes: Eyes: Reports itchy eyes and Reports other (watery eyes) ENT: Reports Normal hearing present, Denies headache(s) and Denies sore throat Cardiovascular: Cardiovascular: Denies chest pain, Denies edema, Denies lightheadedness, Reports dyspnea, Reports dyspnea on exertion, Reports orthopnea and Denies paroxysmal nocturnal dyspnea Respiratory: Respiratory: Denies chest congestion, Denies cough, Denies hemoptysis, Reports dyspnea, Reports dyspnea on exertion and Reports wheezing Gastrointestinal: Gastrointestinal: Denies abdominal pain, Denies nausea and Denies vomiting Genitourinary: Genitourinary: Denies dysuria Musculoskeletal: Musculoskeletal: Denies myalgias Neurologic: Reports Normal hearing present and Denies headache(s) Hematologic/Lymphatic: Hematologic/Lymphatic: Denies lymphadenopathy Allergic/Immunologic: Allergic/Immunologic: Reports itchy eyes and Reports wheezing PMFSH Past Medical History Medical History Asthma Diabetes Diabetes type 2, uncontrolled Diabetic 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 with type 2 diabetes mellitus Ectopic Hyperlipidemia Hypertension snf (current) use of insulin Morbid obesity Vitamin D deficiency Surgical History History of surgical procedure on mouth Hx of ectopic Family History Family History Father Diabetes mellitus Mother Diabetes mellitus Ovarian cancer Social History Social History Alcohol intake: never Advance Directives: No Advance Directives Information Provided: Yes Physical Exam Vital Signs: Vital Signs: Last Vital Signs Temp 98.9 F 06/29/21 14:53 Pulse 105 H 06/29/21 14:53 Resp 20 06/29/21 14:53 BP 148/86 H 06/29/21 14:53 Pulse Ox 94 06/29/21 14:53 Body Mass Index 38.8 Appearance: Alert. Oriented X3. No acute distress. Eyes: Pupils equal, round and reactive to light. ENT: Pharynx normal. Neck: Normal inspection. Neck supple. CVS: Normal heart rate and rhythm. Pulses normal. Respiratory: No respiratory distress. Breath sounds normal.Speaking in complete sentences. Abdomen: Obese, Soft and nontender. +BS x4 Skin: Skin warm and dry. Normal skin color. Normal skin turgor. No rashes. Extremities: No lower extremity edema. No calf tenderness. Neuro: Oriented X 3. No motor deficit. No sensory deficit. Neuro: Cranial nerves: Yes Normal hearing present Course Course Course Narrative: 45 y/o female with history of mild asthma, diabetes, HTN, HLD presenting with SOB, watery eyes and nasal congestion. Her physical exam is normal and she is in no distress. No wheezing on exam, she is declining need for neb. She just used her inhaler which is likely driving her mild tachycardia. Will check CXR, COVID swab and basic labs. Reevaluation(s) Reevaluation #1: CXR and labs are unremarkable. COVID negative. Patient reassured with her results. She admits to being anxious and stressed out about her daughter in/out of inpatient psychiatric care and thinks this was contributing to her breathing. She continues to speak in complete sentences and has no wheezing on exam. She is declining need for prednisone, she has some at home. We will start treatment for seasonal allergies given her symptoms. She is stable for discharge home and will follow up with her PCP early next week. MDM - SOB/Dyspnea Differential Diagnosis Differential diagnosis: Likely acute exacerbation of chronic obstructive airways disease, congestive heart failure, pneumonia, asthma with exacerbation, pulmonary embolism, pleural effusion, sleep apnea and anemia Medical Records Attestation: I reviewed the patient's medical records. Lab Data Attestation: I reviewed the patient's lab results. Result diagrams: 06/29/21 16:12 06/29/21 16:12 Labs: Lab Results 06/29/21 06/29/21 06/29/21 Range/Units 16:12 16:12 16:12 WBC 8.8 (4.8-10.8) X10*3/uL RBC 5.16 (4.20-5.50) X10*6/uL Hgb 13.7 (12.0-16.0) g/dl Hct 42.1 (37-47) % MCV 81.6 (80-98) fL MCH 26.6 L (27.0-33.0) pg MCHC 32.5 (31.0-35.0) g/dl RDW 14.5 (11.0-16.0) % Plt Count 348 (160-400) X10*3/uL MPV 10.2 (9.4-12.3) fL Immature Gran % (Auto) 0.2 (0.0-0.4) % Neut % (Auto) 55.7 (45-73) % Lymph % (Auto) 33.4 (20-40) % Stanley % (Auto) 7.1 (2-11) % Eos % (Auto) 3.3 (0-4) % Baso % (Auto) 0.3 (0-2) % Lymph # (Auto) 2.9 (1.2-4.9) X10*3/uL Stanley # (Auto) 0.6 (0.1-1.2) X10*3/uL Eos # (Auto) 0.3 (0.0-0.4) X10*3/uL Baso # (Auto) 0.0 (0.0-0.2) X10*3/uL Abs Immat Gran (auto) 0.02 (0.00-0.03) X10*3/uL Absolute Neuts (auto) 4.9 (2.0-8.3) X10*3/uL Absolute Nucleated RBC 0.000 (0.0-0.012) X10*3/uL Nucleated RBC % (auto) 0.0 (0.0-0.2) /100WBC Sodium 142 (135-145) mmol/L Potassium 3.7 (3.3-5.1) mmol/L Chloride 108 (96-108) mmol/L Carbon Dioxide 24 (22-29) mmol/L Anion Gap 14 (12-20) BUN 8 L (9-16) mg/dL Creatinine 0.79 (0.5-1.4) mg/dL Estim Creat Clear Calc 113.9 Estimated GFR > 60 Random Glucose 194 H (60-115) mg/dL Calcium 9.5 (8.4-10.2) mg/dL Magnesium 2.3 (1.6-2.6) mg/dL C-Reactive Protein 1.71 H (< or = 0.50) mg/dL B-Natriuretic Peptide 36 (<100) pg/mL COVID-19 (DANK) (Negative) COVID-19 Clin Com 06/29/21 Range/Units 16:12 WBC (4.8-10.8) X10*3/uL RBC (4.20-5.50) X10*6/uL Hgb (12.0-16.0) g/dl Hct (37-47) % MCV (80-98) fL MCH (27.0-33.0) pg MCHC (31.0-35.0) g/dl RDW (11.0-16.0) % Plt Count (160-400) X10*3/uL MPV (9.4-12.3) fL Immature Gran % (Auto) (0.0-0.4) % Neut % (Auto) (45-73) % Lymph % (Auto) (20-40) % Stanley % (Auto) (2-11) % Eos % (Auto) (0-4) % Baso % (Auto) (0-2) % Lymph # (Auto) (1.2-4.9) X10*3/uL Stanley # (Auto) (0.1-1.2) X10*3/uL Eos # (Auto) (0.0-0.4) X10*3/uL Baso # (Auto) (0.0-0.2) X10*3/uL Abs Immat Gran (auto) (0.00-0.03) X10*3/uL Absolute Neuts (auto) (2.0-8.3) X10*3/uL Absolute Nucleated RBC (0.0-0.012) X10*3/uL Nucleated RBC % (auto) (0.0-0.2) /100WBC Sodium (135-145) mmol/L Potassium (3.3-5.1) mmol/L Chloride (96-108) mmol/L Carbon Dioxide (22-29) mmol/L Anion Gap (12-20) BUN (9-16) mg/dL Creatinine (0.5-1.4) mg/dL Estim Creat Clear Calc Estimated GFR Random Glucose (60-115) mg/dL Calcium (8.4-10.2) mg/dL Magnesium (1.6-2.6) mg/dL C-Reactive Protein (< or = 0.50) mg/dL B-Natriuretic Peptide (<100) pg/mL COVID-19 (DANK) Negative (Negative) COVID-19 Clin Com See Note ECG Data Attestation: I personally reviewed and interpreted this ECG as follows: ECG interpretation date: 06/29/21 ECG interpretation time: 16:30 Prior ECG tracings: available for review Interpretation: normal sinus rhythm, HR 95 bpm, normal ME Interval, t-wave inversion in lead III, prolonged QTc [address] segment elevations or depressions. Discharge Plan Discharge Clinical Impression: Acute seasonal allergic rhinitis Asthma Qualifiers: Asthma severity: mild Asthma persistence: intermittent Asthma complication type: uncomplicated Qualified Code(s): J45.20 - Mild intermittent asthma, uncomplicated Patient Disposition: Home, Self-Care Instructions: Asthma (ED), Allergic Rhinitis (ED) Additional Instructions: Your chest x-ray today was normal. Your lab workup was unremarkable. You were negative for COVID-19. Recommend continuing to use your albuterol inhaler - every 4 hours as needed. Recommend continuing your previously prescribed prednisone for the next 4 days. Rest and stay indoors out of the heat for the next couple of days. Follow up with your doctor early next week to get your nebulizer machine. If you develop new or worsening symptoms call 911 or come back to the ER for further evaluation. Prescriptions: New fluticasone propionate [Flonase Allergy Relief] 50 mcg/actuation spray,suspension 1 spray intranasal BID Qty: 16 RF: 0 cetirizine [Zyrtec] 10 mg tablet 10 mg PO DAILY Qty: 14 RF: 0 No Action (DME) Contour Next Test Strips Strip See Rx Instructions .ROUTE .MEDSUPPLY Qty: 100 RF: 6 blood-glucose transmitter [Dexcom G6 Transmitter] Device 1 ea miscellaneous DIRECTED 90 Days Qty: 1 RF: 3 Dexcom G6 Sensor Device 1 ea topical DAILY 30 Days Qty: 3 RF: 11 prednisone 20 mg tablet 40 mg PO DAILY 5 Days Qty: 10 RF: 0 (DME) AeroEclipse II Nebulizer Misc See Rx Instructions .ROUTE .MEDSUPPLY Qty: 1 RF: 0 albuterol sulfate 90 mcg/actuation HFA aerosol inhaler 1 inh inhalation QID PRN (Reason: shortness of breath or wheezing) Qty: 8.5 RF: 0 (DME) Compact Compressor Nebulizer Misc See Rx Instructions .ROUTE .MEDSUPPLY Qty: 1 RF: 0 albuterol sulfate 0.63 mg/3 mL solution for nebulization 0.63 mg inhalation QID PRN (Reason: shortness of breath or wheezing) Qty: 75 RF: 0 prednisone 20 mg tablet 40 mg PO DAILY Qty: 10 RF: 0 ezetimibe 10 mg tablet 10 mg PO DAILY RF: 0 telmisartan-hydrochlorothiazid 80-25 mg tablet 1 tab PO DAILY RF: 0 amlodipine 10 mg tablet 10 mg PO DAILY RF: 0 gabapentin 100 mg capsule 100 mg PO QPM RF: 0 empagliflozin 10 mg tablet 10 mg PO QAM 30 Days Qty: 30 RF: 7 insulin lispro [Humalog U-100 Insulin] 100 unit/mL solution 0 - 100 unit subcut DAILY Qty: 90 RF: 1 (DME) [employer] Dash 5 Pack Pod Cartridge See Rx Instructions .ROUTE .MEDSUPPLY Qty: 10 RF: 6 metformin 500 mg tablet extended release 24 hr 500 mg PO DAILY Qty: 90 RF: 1 rosuvastatin 40 mg tablet 40 mg PO BEDTIME 90 Days Qty: 90 RF: 2 sitagliptin 100 mg tablet 100 mg PO DAILY 90 Days Qty: 90 RF: 2
[2021-06-29 16:18] LABS: MANUAL DIFF FLAG NO
[2021-06-29 16:20] LABS: Basophils Percent Auto 0.3 % (0-2); Eosinophils Absolute Auto 0.3 X10*3/uL (0.0-0.4); Eosinophils Percent Auto 3.3 % (0-4); Hematocrit 42.1 % (37-47); Hemoglobin 13.7 g/dl (12.0-16.0); Imm Gran Abs Auto 0.02 X10*3/uL (0.00-0.03); Imm Gran Pct Auto 0.2 % (0.0-0.4); Lymphocytes Absolute Auto 2.9 X10*3/uL (1.2-4.9); Lymphocytes Percent Auto 33.4 % (20-40); Mean Corpuscular HGB Conc 32.5 g/dl (31.0-35.0); Mean Corpuscular Hemoglobin 26.6 pg (27.0-33.0); Mean Corpuscular Volume 81.6 fL (80-98); Mean Platelet Volume 10.2 fL (9.4-12.3); Monocytes Absolute Auto 0.6 X10*3/uL (0.1-1.2); Monocytes Percent Auto 7.1 % (2-11); Neutrophils Absolute Auto 4.9 X10*3/uL (2.0-8.3); Neutrophils Percent Auto 55.7 % (45-73); Platelet Count 348 X10*3/uL (160-400); Red Blood Count 5.16 X10*6/uL (4.20-5.50); Red Cell Distribution Width 14.5 % (11.0-16.0); White Blood Count 8.8 X10*3/uL (4.8-10.8)
[2021-06-29 16:35] LABS: COVID-19 Test Negative (Negative)
[2021-06-29 16:47] LABS: Anion Gap 14 (12-20); Blood Urea Nitrogen 8 mg/dL (9-16); C Reactive Protein 1.71 mg/dL (< or = 0.50); Calcium 9.5 mg/dL (8.4-10.2); Carbon Dioxide 24 mmol/L (22-29); Chloride 108 mmol/L (96-108); Creatinine Clr Calc Pharmacy 113.9; Estimated Glomerular Filt Rate > 60; Glucose Random 194 mg/dL (60-115); Magnesium 2.3 mg/dL (1.6-2.6); Potassium 3.7 mmol/L (3.3-5.1); Sodium 142 mmol/L (135-145)
[2021-06-29 16:53] LABS: B Type Natriuretic Peptide 36 pg/mL (<100)
== END 2021-06-29 17:16 | disposition home or self-care (01) ==
PROVIDERS: Physician Assistant; Emergency Provider Emergency Medicine; PCP Internal Medicine
DX: J30.2 Other seasonal allergic rhinitis (principal); J45.20 Mild intermittent asthma, uncomplicated; F41.9 Anxiety disorder, unspecified; Z20.822 Contact with and (suspected) exposure to COVID-19; R06.02 Shortness of breath; E11.9 Type 2 diabetes mellitus without complications; Z79.4 Long term (current) use of insulin; Z96.41 Presence of insulin pump (external) (internal); Z79.899 Other long term (current) drug therapy
CPT/HCPCS: 36415; 71045; 80048; 83735; 83880; 85025; 86140; 87635; 93005; 99283

== ENCOUNTER 2021-07-04 05:54 | Emergency (ER) | payer OTHER, SELFPAY ==
--- NOTE | ~2021-07-04 | XR_ITS ---
EXAMINATION: XR CHEST CLINICAL INFORMATION: SOB. COMPARISON: None TECHNIQUE: Frontal view of the chest was obtained. FINDINGS: The lungs are well-expanded and clear of acute process. Heart size and pulmonary vascularity is normal. No gross bony abnormality seen. XR/XR chest 1V IMPRESSION: Unremarkable chest exam.
[2021-07-04 05:57] VITALS: BP 128/84; PULSE 94; RESP 16; TEMP 36.7; O2SAT 100; BMI 38.8
[2021-07-04 06:06] VITALS: BP 128/84; PULSE 94; RESP 16; O2SAT 94
--- NOTE | 2021-07-04 07:05 | ECG_ITS ---
Test Reason : CHEST PAIN Blood Pressure : / mmHG Vent. Rate : 100 BPM Atrial Rate : 100 BPM P-R Int : 126 ms QRS Dur : 100 ms QT Int : 370 ms P-R-T Axes : 055 025 026 degrees QTc Int : 477 ms Normal sinus rhythm Normal ECG When compared with ECG of 29-JUN-2021 16:16, No significant change was found Referred By: Homar Mcgee Electronically Signed By:IVETH ELLIOTT
--- NOTE | 2021-07-04 07:05 | ED.SOB ---
HPI - SOB/Dyspnea General Chief Complaint: Dyspnea Stated Complaint: SoB Time Seen by Provider: 07/04/21 07:04 Source: patient Mode of arrival: EMS Limitations: no limitations History of Present Illness HPI Narrative: Patient history of asthma has nebulizer at home seen seen here on 06/29 for nasal congestion shortness of breath started on Flonase comes back as increased feeling of shortness of breath was saturating 85% at room air received treatment and start saturating 100% at room air when seen in the ER patient is at 98% room air. Denies any chest pain or palpitation no fever or chills Related Data Home Medications Medication Instructions Recorded Confirmed amlodipine 10 mg tablet 10 mg PO DAILY 12/12/20 03/13/21 ezetimibe 10 mg tablet 10 mg PO DAILY 12/12/20 03/13/21 gabapentin 100 mg capsule 100 mg PO QPM 12/12/20 03/13/21 telmisartan 80 1 tab PO DAILY 12/12/20 03/13/21 mg-hydrochlorothiazide 25 mg tablet Previous Rx's Medication Instructions Recorded blood sugar diagnostic (Contour #100 ea 12/13/20 Next Test Strips) albuterol sulfate 90 mcg/actuation 1 inh INHALATION QID PRN #8.5 g 12/22/20 aerosol inhaler nebulizers (AeroEclipse II #1 ea 12/22/20 Nebulizer) prednisone 20 mg tablet 40 mg PO DAILY 5 Days #10 tab 12/22/20 albuterol sulfate 0.63 mg/3 mL 0.63 mg INHALATION QID PRN #75 ml 12/31/20 solution for nebulization nebulizers (Compact Compressor #1 ea 12/31/20 Nebulizer) prednisone 20 mg tablet 40 mg PO DAILY #10 tab 12/31/20 empagliflozin 10 mg tablet 10 mg PO QAM 30 Days #30 tab 03/13/21 insulin lispro 100 unit/mL 0 - 100 unit SUBCUT DAILY #90 ml 03/13/21 subcutaneous solution (Humalog U-100 Insulin) insulin pump cartridge (Omnipod #10 ea 03/13/21 Dash 5 Pack Pod) metformin 500 mg tablet,extended 500 mg PO DAILY #90 tab 03/13/21 release 24 hr rosuvastatin 40 mg tablet 40 mg PO BEDTIME 90 Days #90 tab 03/13/21 sitagliptin 100 mg tablet 100 mg PO DAILY 90 Days #90 tab 03/13/21 blood-glucose transmitter (Dexcom 1 ea MISCELLANEOUS DIRECTED 90 04/16/21 G6 Transmitter) Days #1 cap Dexcom G6 Sensor (blood-glucose 1 ea TOPICAL DAILY 30 Days #3 ea NS 06/20/21 sensor) cetirizine 10 mg tablet (Zyrtec) 10 mg PO DAILY #14 tab 06/29/21 fluticasone propionate 50 1 spray INTRANASAL BID #16 g 06/29/21 mcg/actuation nasal spray,suspension (Flonase Allergy Relief) Allergies Allergy/AdvReac Type Severity Reaction Status Date / Time canagliflozin [Invokana] Allergy Unknown rash Verified 06/29/21 14:59 liraglutide Allergy Unknown rash Verified 06/29/21 14:59 No Known Allergies Allergy Verified 06/29/21 14:59 [No Known Allergies*] animals Allergy Unknown rash Uncoded 06/29/21 14:59 Pt states no known food Allergy Unknown Unknown Uncoded 06/29/21 14:59 allerg Review of Systems Review of Systems: Yes all other systems are reviewed and are negative PMF Past Medical History Medical History Asthma Diabetes Diabetes type 2, uncontrolled Diabetic 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 with type 2 diabetes mellitus Ectopic Hyperlipidemia Hypertension long-term (current) use of insulin Morbid obesity Vitamin D deficiency Surgical History History of surgical procedure on mouth Hx of ectopic Family History Family History Father Diabetes mellitus Mother Diabetes mellitus Ovarian cancer Social History Social History Alcohol intake: never Advance Directives: No Advance Directives Information Provided: Yes Patient : No Physical Exam Vital Signs: Vital Signs: Last Vital Signs Temp 98.0 F 07/04/21 09:24 Pulse 94 07/04/21 09:24 Resp 18 07/04/21 09:24 BP 114/72 07/04/21 09:24 Pulse Ox 98 07/04/21 09:24 Oxygen Flow Rate 15 07/04/21 05:57 Body Mass Index 38.8 Appearance: Alert. Oriented X3. No acute distress. Eyes: No pallor or icterus ENT: Pharynx normal. Oral Mucosa moist Neck: Normal inspection. Neck supple. CVS: Normal heart rate and rhythm. Pulses normal. Respiratory: No respiratory distress. Equal air entry bilateral, bilateral wheezing/rhonchi no rales Abdomen: Soft and nontender. Bowel sounds are present, no mass palpable, no CVA tenderness Skin: Skin warm and dry. Normal skin color. Normal skin turgor. Extremities: No lower extremity edema. No calf tenderness Neuro: Oriented X 3. MDM - SOB/Dyspnea MDM Narrative Medical decision making narrative: Patient with asthma improved after nebulizing treatment and IV steroid refused p.o. prednisone at home as eating his blood sugar saturating 98% room air will discharge patient home advised to continue her nebulizer treatment followed by PCP patient chest x-ray negative for any infiltrate D-dimer negative for PE Lab Data Attestation: I reviewed the patient's lab results. Result diagrams: 07/04/21 07:38 Labs: Lab Results 07/04/21 07/04/21 07/04/21 Range/Units 07:29 07:38 07:38 WBC 12.1 H (4.8-10.8) X10*3/uL RBC 5.33 (4.20-5.50) X10*6/uL Hgb 14.2 (12.0-16.0) g/dl Hct 43.7 (37-47) % MCV 82.0 (80-98) fL MCH 26.6 L (27.0-33.0) pg MCHC 32.5 (31.0-35.0) g/dl RDW 13.9 (11.0-16.0) % Plt Count 323 (160-400) X10*3/uL MPV 10.0 (9.4-12.3) fL Immature Gran % (Auto) 0.3 (0.0-0.4) % Neut % (Auto) 69.1 (45-73) % Lymph % (Auto) 21.5 (20-40) % [place] % (Auto) 5.8 (2-11) % Eos % (Auto) 2.9 (0-4) % Baso % (Auto) 0.4 (0-2) % Lymph # (Auto) 2.6 (1.2-4.9) X10*3/uL [place] # (Auto) 0.7 (0.1-1.2) X10*3/uL Eos # (Auto) 0.4 (0.0-0.4) X10*3/uL Baso # (Auto) 0.1 (0.0-0.2) X10*3/uL Abs Immat Gran (auto) 0.04 H (0.00-0.03) X10*3/uL Absolute Neuts (auto) 8.4 H (2.0-8.3) X10*3/uL Absolute Nucleated RBC 0.000 (0.0-0.012) X10*3/uL Nucleated RBC % (auto) 0.0 (0.0-0.2) /100WBC D-Dimer NG/ML Total Bilirubin 0.9 (0.0-1.0) mg/dL Direct Bilirubin 0.4 (0.0-0.5) mg/dL AST 12 (5-31) U/L ALT 23 (0-31) U/L Alkaline Phosphatase 105 (39-117) U/L Total Protein 7.3 (6.5-8.0) g/dL Albumin 4.3 (3.5-5.0) g/dL COVID-19 (DANK) Negative (Negative) COVID-19 Clin Com See Note 07/04/21 Range/Units 07:38 WBC (4.8-10.8) X10*3/uL RBC (4.20-5.50) X10*6/uL Hgb (12.0-16.0) g/dl Hct (37-47) % MCV (80-98) fL MCH (27.0-33.0) pg MCHC (31.0-35.0) g/dl RDW (11.0-16.0) % Plt Count (160-400) X10*3/uL MPV (9.4-12.3) fL Immature Gran % (Auto) (0.0-0.4) % Neut % (Auto) (45-73) % Lymph % (Auto) (20-40) % [place] % (Auto) (2-11) % Eos % (Auto) (0-4) % Baso % (Auto) (0-2) % Lymph # (Auto) (1.2-4.9) X10*3/uL [place] # (Auto) (0.1-1.2) X10*3/uL Eos # (Auto) (0.0-0.4) X10*3/uL Baso # (Auto) (0.0-0.2) X10*3/uL Abs Immat Gran (auto) (0.00-0.03) X10*3/uL Absolute Neuts (auto) (2.0-8.3) X10*3/uL Absolute Nucleated RBC (0.0-0.012) X10*3/uL Nucleated RBC % (auto) (0.0-0.2) /100WBC D-Dimer 206 NG/ML Total Bilirubin (0.0-1.0) mg/dL Direct Bilirubin (0.0-0.5) mg/dL AST (5-31) U/L ALT (0-31) U/L Alkaline Phosphatase (39-117) U/L Total Protein (6.5-8.0) g/dL Albumin (3.5-5.0) g/dL COVID-19 (DANK) (Negative) COVID-19 Clin Com Discharge Plan Discharge Clinical Impression: Asthma Qualifiers: Asthma severity: moderate Asthma persistence: persistent Asthma complication type: with acute exacerbation Qualified Code(s): J45.41 - Moderate persistent asthma with (acute) exacerbation Patient Disposition: Home, Self-Care Instructions: Asthma (ED) Additional Instructions: Continue your medications and follow with PCP Prescriptions: No Action (DME) Contour Next Test Strips Strip See Rx Instructions .ROUTE .MEDSUPPLY Qty: 100 RF: 6 blood-glucose transmitter [Dexcom G6 Transmitter] Device 1 ea miscellaneous DIRECTED 90 Days Qty: 1 RF: 3 Dexcom G6 Sensor Device 1 ea topical DAILY 30 Days Qty: 3 RF: 11 prednisone 20 mg tablet 40 mg PO DAILY 5 Days Qty: 10 RF: 0 (DME) AeroEclipse II Nebulizer Misc See Rx Instructions .ROUTE .MEDSUPPLY Qty: 1 RF: 0 albuterol sulfate 90 mcg/actuation HFA aerosol inhaler 1 inh inhalation QID PRN (Reason: shortness of breath or wheezing) Qty: 8.5 RF: 0 (DME) Compact Compressor Nebulizer Misc See Rx Instructions .ROUTE .MEDSUPPLY Qty: 1 RF: 0 albuterol sulfate 0.63 mg/3 mL solution for nebulization 0.63 mg inhalation QID PRN (Reason: shortness of breath or wheezing) Qty: 75 RF: 0 prednisone 20 mg tablet 40 mg PO DAILY Qty: 10 RF: 0 fluticasone propionate [Flonase Allergy Relief] 50 mcg/actuation spray,suspension 1 spray intranasal BID Qty: 16 RF: 0 cetirizine [Zyrtec] 10 mg tablet 10 mg PO DAILY Qty: 14 RF: 0 ezetimibe 10 mg tablet 10 mg PO DAILY RF: 0 telmisartan-hydrochlorothiazid 80-25 mg tablet 1 tab PO DAILY RF: 0 amlodipine 10 mg tablet 10 mg PO DAILY RF: 0 gabapentin 100 mg capsule 100 mg PO QPM RF: 0 empagliflozin 10 mg tablet 10 mg PO QAM 30 Days Qty: 30 RF: 7 insulin lispro [Humalog U-100 Insulin] 100 unit/mL solution 0 - 100 unit subcut DAILY Qty: 90 RF: 1 (DME) Omnipod Dash 5 Pack Pod Cartridge See Rx Instructions .ROUTE .MEDSUPPLY Qty: 10 RF: 6 metformin 500 mg tablet extended release 24 hr 500 mg PO DAILY Qty: 90 RF: 1 rosuvastatin 40 mg tablet 40 mg PO BEDTIME 90 Days Qty: 90 RF: 2 sitagliptin 100 mg tablet 100 mg PO DAILY 90 Days Qty: 90 RF: 2 Interventions: ED Discharge Assessment Last Done: 07/04/21 10:45 Discharge Date/Time: 07/04/21 10:45
[2021-07-04] MEDS: Albuterol/Iprat 2.5/0.5MG 3 ML AMPUL.NEB INHALE (07:24)
[2021-07-04] MEDS: Albuterol Sulfate (0.083%) 2.5 MG/3 ML VIAL.NEB 5 MG INHALE (07:24)
[2021-07-04 07:34] VITALS: PULSE 95; O2SAT 95
[2021-07-04 07:44] LABS: MANUAL DIFF FLAG NO
[2021-07-04 07:46] LABS: Basophils Absolute Auto 0.1 X10*3/uL (0.0-0.2); Basophils Percent Auto 0.4 % (0-2); Eosinophils Absolute Auto 0.4 X10*3/uL (0.0-0.4); Eosinophils Percent Auto 2.9 % (0-4); Hematocrit 43.7 % (37-47); Hemoglobin 14.2 g/dl (12.0-16.0); Imm Gran Abs Auto 0.04 X10*3/uL (0.00-0.03); Imm Gran Pct Auto 0.3 % (0.0-0.4); Lymphocytes Absolute Auto 2.6 X10*3/uL (1.2-4.9); Lymphocytes Percent Auto 21.5 % (20-40); Mean Corpuscular HGB Conc 32.5 g/dl (31.0-35.0); Mean Corpuscular Hemoglobin 26.6 pg (27.0-33.0); Monocytes Absolute Auto 0.7 X10*3/uL (0.1-1.2); Monocytes Percent Auto 5.8 % (2-11); Neutrophils Absolute Auto 8.4 X10*3/uL (2.0-8.3); Neutrophils Percent Auto 69.1 % (45-73); Platelet Count 323 X10*3/uL (160-400); Red Blood Count 5.33 X10*6/uL (4.20-5.50); Red Cell Distribution Width 13.9 % (11.0-16.0); White Blood Count 12.1 X10*3/uL (4.8-10.8)
[2021-07-04 07:57] LABS: D Dimer 206 NG/ML
[2021-07-04 08:01] LABS: COVID-19 Test Negative (Negative)
--- NOTE | 2021-07-04 08:15 | PC.NURSE ---
Pt alert and oriented x3, vss. lscta, Pt states that this morning while sleeping she started having trouble breathing, she tried her asthma pump and nebulizer treatment but nothing helped. Pt currently satting 98% R/A, no sob/difficulty breathing, no chest discomfort with breathing. No apparent distress noted. Pt resting quiety.
[2021-07-04 08:18] LABS: Alanine Aminotransferase 23 U/L (0-31); Albumin Level 4.3 g/dL (3.5-5.0); Alkaline Phosphatase 105 U/L (39-117); Aspartate Amino Transferase 12 U/L (5-31); Bilirubin Direct 0.4 mg/dL (0.0-0.5); Bilirubin Total 0.9 mg/dL (0.0-1.0); Total Protein 7.3 g/dL (6.5-8.0)
[2021-07-04 09:24] VITALS: BP 114/72; PULSE 94; RESP 18; TEMP 36.7; O2SAT 98
== END 2021-07-04 10:45 | disposition home or self-care (01) ==
PROVIDERS: Emergency Provider Internal Medicine
DX: J45.41 Moderate persistent asthma with (acute) exacerbation (principal); Z20.822 Contact with and (suspected) exposure to COVID-19; E11.9 Type 2 diabetes mellitus without complications; I10 Essential (primary) hypertension; E78.5 Hyperlipidemia, unspecified; Z79.4 Long term (current) use of insulin; Z79.899 Other long term (current) drug therapy; Z79.02 Long term (current) use of antithrombotics/antiplatelets
CPT/HCPCS: 36415; 71045; 80076; 85025; 85379; 87635; 93005; 94640; 94644; 96374; 99284

== ENCOUNTER → 2021-07-19 07:40 | Outpatient (BNVA) | payer OTHER, SELFPAY | PROVIDERS: Visit Provider Nurse Practitioner Gerontology | DX: E11.65 Type 2 diabetes mellitus with hyperglycemia (principal); E11.42 Type 2 diabetes mellitus with diabetic 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; E78.00 Pure hypercholesterolemia, unspecified; E55.9 Vitamin D deficiency, unspecified; E66.01 Morbid (severe) obesity due to excess calories; I10 Essential (primary) hypertension; Z79.4 Long term (current) use of insulin; Z68.35 Body mass index [BMI] 35.0-35.9, adult; Z96.41 Presence of insulin pump (external) (internal) | CPT/HCPCS: 82947 ==

== ENCOUNTER → 2021-07-25 14:18 | Outpatient (BNVA) | payer OTHER, SELFPAY | PROVIDERS: PCP Internal Medicine; Visit Provider Internal Medicine Pulmonary Disease ==

== ENCOUNTER → 2021-08-07 12:04 | Outpatient (REF) | payer OTHER, SELFPAY ==
--- NOTE | 2021-08-07 12:58 | PFT_ITS ---
Forced vital capacity is moderately reduced. FEV1, [id number], and MVV are markedly reduced. Post bronchodilator therapy, there is significant improvement in FVC, FEV1, and [id number]. Total lung capacity normal. Residual volume is markedly increased. Diffusion capacity normal. CONCLUSION: Severe obstructive airway disorder. There is good response to bronchodilator therapy with partial reversibility. 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 Clinical correlation is recommended. MD TONEY Lamar/MODJackeline / [phone]
== END ==
LOC: HO.SL 12:04
PROVIDERS: PCP Internal Medicine; Visit Provider Internal Medicine Pulmonary Disease
DX: G47.33 Obstructive sleep apnea (adult) (pediatric) (principal); J45.41 Moderate persistent asthma with (acute) exacerbation
CPT/HCPCS: 94010; 95806

== ENCOUNTER → 2021-08-09 07:32 | Outpatient (BNVA) | payer OTHER, SELFPAY | PROVIDERS: PCP Internal Medicine; Visit Provider Nurse Practitioner Gerontology | DX: E11.65 Type 2 diabetes mellitus with hyperglycemia (principal); E11.42 Type 2 diabetes mellitus with diabetic 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; I10 Essential (primary) hypertension; E78.00 Pure hypercholesterolemia, unspecified; E55.9 Vitamin D deficiency, unspecified; E66.01 Morbid (severe) obesity due to excess calories; Z68.35 Body mass index [BMI] 35.0-35.9, adult; Z79.4 Long term (current) use of insulin | CPT/HCPCS: 82947 ==

== ENCOUNTER 2021-08-23 15:28 | Outpatient (REF) | payer OTHER, SELFPAY ==
[2021-08-23 15:45] LABS: MANUAL DIFF FLAG NO
[2021-08-23 15:59] LABS: Basophils Percent Auto 0.3 % (0-2); Eosinophils Absolute Auto 0.2 X10*3/uL (0.0-0.4); Eosinophils Percent Auto 1.7 % (0-4); Hematocrit 41.8 % (37-47); Hemoglobin 13.7 g/dl (12.0-16.0); Imm Gran Abs Auto 0.03 X10*3/uL (0.00-0.03); Imm Gran Pct Auto 0.3 % (0.0-0.4); Lymphocytes Absolute Auto 3.5 X10*3/uL (1.2-4.9); Lymphocytes Percent Auto 36.8 % (20-40); Mean Corpuscular HGB Conc 32.8 g/dl (31.0-35.0); Mean Corpuscular Hemoglobin 26.3 pg (27.0-33.0); Mean Corpuscular Volume 80.4 fL (80-98); Mean Platelet Volume 10.3 fL (9.4-12.3); Monocytes Absolute Auto 0.5 X10*3/uL (0.1-1.2); Monocytes Percent Auto 5.3 % (2-11); Neutrophils Absolute Auto 5.3 X10*3/uL (2.0-8.3); Neutrophils Percent Auto 55.6 % (45-73); Platelet Count 304 X10*3/uL (160-400); Red Cell Distribution Width 13.6 % (11.0-16.0); White Blood Count 9.5 X10*3/uL (4.8-10.8)
== END 2021-08-23 15:29 | disposition home or self-care (01) ==
LOC: HO.LAB 15:28
PROVIDERS: PCP Internal Medicine; Visit Provider Internal Medicine Pulmonary Disease
DX: J45.41 Moderate persistent asthma with (acute) exacerbation (principal); Z01.82 Encounter for allergy testing
CPT/HCPCS: 36415; 82785; 85025; 86003

== ENCOUNTER → 2021-09-09 08:21 | Outpatient (BNVA) | payer OTHER, SELFPAY | PROVIDERS: PCP Internal Medicine; Visit Provider Registered Nurse Diabetes Educator ==

== ENCOUNTER → 2021-09-16 12:34 | Outpatient (BNVA) | payer OTHER, SELFPAY | PROVIDERS: PCP Internal Medicine; Visit Provider Registered Nurse Diabetes Educator ==

== ENCOUNTER → 2021-09-23 12:43 | Outpatient (BNVA) | payer OTHER, SELFPAY | PROVIDERS: PCP Internal Medicine; Visit Provider Internal Medicine Pulmonary Disease ==

== ENCOUNTER → 2021-10-21 10:35 | Outpatient (BNVA) | payer OTHER, SELFPAY | PROVIDERS: PCP Internal Medicine; Visit Provider Registered Nurse Diabetes Educator ==

== ENCOUNTER 2021-11-04 14:07 | Outpatient (REF) | payer OTHER, SELFPAY ==
--- NOTE | ~2021-11-04 | US_ITS ---
EXAMINATION: US PELVIS CLINICAL INFORMATION: Pelvic pain, assess IUD COMPARISON: CT scan 09/30/2018 TECHNIQUE: Ultrasound of the pelvis is performed using both transabdominal and transvaginal transducers along with Doppler. Transvaginal imaging is performed due to inadequate visualization transabdominally. Limited imaging due to body habitus. FINDINGS: Uterus: The uterus is anteverted and measures 8.8 x 5.5 x 5.[address] without migration. No mass or fluid collections. The double wall endometrial thickness grossly normal with IUD in place. Nabothian cysts. Adnexa: Both ovaries are visualized. There is normal color flow to the adnexa. There is no ovarian torsion. There is no pelvic ascites or fluid collection. Right ovary 11 mL without focal abnormality. Left ovary measures 3 mL without focal abnormality US/US pelvic and transvaginal IMPRESSION: Overall limited imaging due to body habitus. No evidence of any IUD migration.
[2021-11-04 17:08] LABS: Appearance Urine CLEAR; Color Urine YELLOW; Glucose Urine UA >=1000 MG/DL (NEG); Leukocyte Esterase Urine NEG (NEG); Nitrite Urine NEG (NEG); Urine Blood 2+ (NEG); Urine Ketones NEG (NEG); Urine Protein NEG (NEG-TRACE)
[2021-11-04 18:11] LABS: Squamous Epithelial Cell Urine 1+ /LPF
[2021-11-04 18:12] LABS: Bacteria Urine TRACE /LPF; Mucus Urine TRACE /LPF; RBC Urine 0-2 /HPF (0); WBC Urine 0 /HPF (0-4)
== END 2021-11-04 14:08 | disposition home or self-care (01) ==
LOC: HO.HMGCX 14:07
PROVIDERS: PCP Internal Medicine; Visit Provider Obstetrics & Gynecology Gynecology
DX: R31.29 Other microscopic hematuria (principal)
CPT/HCPCS: 76830; 76856; 81001; 81003; 87086

== ENCOUNTER → 2021-11-18 13:39 | Outpatient (BNVA) | payer OTHER, SELFPAY | PROVIDERS: PCP Internal Medicine; Visit Provider Registered Nurse Diabetes Educator ==

== ENCOUNTER 2021-11-26 09:28 | Outpatient (REF) | payer OTHER, SELFPAY ==
[2021-11-26 10:07] LABS: Estimated Average Glucose 249 mg/dL; Estimated Average Glucose 252 mg/dL; Hemoglobin A1c % 10.3 %; Hemoglobin A1c % 10.4 %
[2021-11-26 10:25] LABS: Alanine Aminotransferase 30 U/L (0-31); Albumin Level 3.8 g/dL (3.5-5.0); Alkaline Phosphatase 98 U/L (39-117); Anion Gap 14 (12-20); Aspartate Amino Transferase 19 U/L (5-31); Blood Urea Nitrogen 9 mg/dL (9-16); Carbon Dioxide 23 mmol/L (22-29); Chloride 104 mmol/L (96-108); Estimated Glomerular Filt Rate > 60; Glucose Random 263 mg/dL (60-115); Potassium 4.3 mmol/L (3.3-5.1); Sodium 137 mmol/L (135-145)
[2021-11-26 11:55] LABS: Creatinine Urine 117.04 mg/dL; Microalbum/Creatinine Ratio Ur 41.8 ug/mg cr
[2021-11-28 06:12] LABS: Immunoglobulin E 196 kU/L (<OR=114)
== END 2021-11-26 09:29 | disposition home or self-care (01) ==
LOC: HO.LAB 09:28
PROVIDERS: Internal Medicine Pulmonary Disease; Absent Provider Internal Medicine; PCP Internal Medicine; Visit Provider Nurse Practitioner Gerontology
DX: Z00.00 Encounter for general adult medical examination without abnormal findings (principal); E78.00 Pure hypercholesterolemia, unspecified; I10 Essential (primary) hypertension; L21.0 Seborrhea capitis; E11.42 Type 2 diabetes mellitus with diabetic 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; J45.41 Moderate persistent asthma with (acute) exacerbation
CPT/HCPCS: 36415; 80053; 82043; 82785; 82947; 83036

== ENCOUNTER → 2021-12-13 14:01 | Outpatient (BNVA) | payer OTHER, SELFPAY | PROVIDERS: PCP Internal Medicine; Visit Provider Registered Nurse Diabetes Educator ==

== ENCOUNTER 2021-12-18 07:32 | Outpatient (REF) | payer OTHER, SELFPAY ==
--- NOTE | ~2021-12-18 | MR_ITS ---
EXAMINATION: MRI OF THE BRAIN WITHOUT CONTRAST CLINICAL INFORMATION: Headache. COMPARISON: CT scan of the head 08/26/2020. TECHNIQUE: MRI of the brain was obtained using routine sequences without contrast. FINDINGS: No diffusion abnormalities are identified to suggest an acute or subacute infarct. No mass effect or midline shift is seen. The ventricles and sulci appear normal. Brain parenchymal signal is unremarkable. No extra-axial fluid collections are seen. The brainstem and cerebellum are normal. No pathologic magnetic susceptibility artifact is identified on the gradient refocused acquisition. The craniovertebral junction, marrow signal, and midline structures are normal. The major intracranial flow-voids at the level of the [place] are preserved. The dural venous sinus flow-voids are maintained. The mastoid air cells are well-aerated. There is mild mucoperiosteal thickening in the bilateral ethmoid sinuses. MR/MR head/brain wo con IMPRESSION: 1. There are no acute intracranial findings. No masses are demonstrated. There is no significant paranasal sinus disease. The cerebellar tonsils and pituitary region appear normal.
== END 2021-12-18 07:33 | disposition home or self-care (01) ==
LOC: HO.MRI 07:32
PROVIDERS: Visit Provider Internal Medicine
DX: R51.9 Headache, unspecified (principal)
CPT/HCPCS: 70551

== ENCOUNTER 2022-01-18 07:12 | Emergency (ER) | payer OTHER, SELFPAY ==
--- NOTE | ~2022-01-18 | XR_ITS ---
EXAMINATION: XR CHEST CLINICAL INFORMATION: Shortness of breath, cough. Asthma. COMPARISON: Most recent chest radiograph dated 07/04/2021. TECHNIQUE: Frontal view of the chest was obtained. FINDINGS: The lungs are clear. The cardiomediastinal silhouette is normal in size. There is no pleural effusion or pneumothorax. No acute osseous abnormality. XR/XR chest 1V IMPRESSION: No acute cardiopulmonary findings.
[2022-01-18 07:32] VITALS: BP 183/97; PULSE 87; RESP 18; TEMP 36.5; O2SAT 96; BMI 36.9
[2022-01-18 08:11] VITALS: BP 167/95; PULSE 88; RESP 12; TEMP 36.9; O2SAT 96
[2022-01-18 08:27] LABS: Appearance Urine CLOUDY; Color Urine YELLOW; Glucose Urine UA >=1000 MG/DL (NEG); Leukocyte Esterase Urine TRACE (NEG); Nitrite Urine NEG (NEG); Specific Gravity - Urine 1.025 (1.005-1.025); UACC Culture Trigger YES; Urine Blood 2+ (NEG); Urine Ketones NEG (NEG); Urine Protein NEG (NEG-TRACE)
[2022-01-18 08:28] LABS: UPreg QC Valid YES; Urine Pregnancy NEGATIVE (NEGATIVE)
[2022-01-18 08:33] LABS: Bacteria Urine 2+ /LPF; Squamous Epithelial Cell Urine 1+ /LPF; UACC CULT YES; WBC Urine TNTC /HPF (0-4)
--- NOTE | 2022-01-18 08:33 | ECG_ITS ---
Test Reason : SOB Blood Pressure : / mmHG Vent. Rate : 090 BPM Atrial Rate : 090 BPM P-R Int : 132 ms QRS Dur : 102 ms QT Int : 390 ms P-R-T Axes : 051 043 035 degrees QTc Int : 477 ms Normal sinus rhythm Normal ECG When compared with ECG of 04-JUL-2021 07:27, No significant change was found Referred By: Valeria Xie Electronically Signed By:Dony Be
[2022-01-18 08:50] LABS: MANUAL DIFF FLAG NO
--- NOTE | 2022-01-18 08:51 | ED.GENADULT ---
HPI - General Adult General Chief complaint: General Medical <ED [place] - Last Filed: 01/18/22 13:53> Stated complaint: headache <ED [place] - Last Filed: 01/18/22 13:53> Time Seen by Provider: 01/18/22 08:08 <ED [place] - Last Filed: 01/18/22 13:53> Source: patient <ED [place] - Last Filed: 01/18/22 13:53> Mode of arrival: ambulatory <ED [place] - Last Filed: 01/18/22 13:53> History of Present Illness HPI narrative: 46-year-old female with a PMHx of asthma, diabetes, hyperlipidemia, hypertension, vitamin-D deficiency, migraines, presenting to the ED complaining headache x3 days with associated nausea and vomiting. Also reports dysuria & suprapubic pressure, dry cough, wheezing, and mild SOB x2 weeks. Admits to CP yesterday. Admits headaches are similar to chronic migraines but persistent with pressure/burning behind eyes, not maximal in onset. Was prescribed Vicodin by PCP without relief, then nausea and vomiting started. Denies vision loss, weakness, numbness/tingling, diarrhea. Denies taking AC <ED [place] - Last Filed: 01/18/22 13:53> Onset (ago): day(s) <ED [place] - Last Filed: 01/18/22 13:53> Related Data Home medications: Home Medications Medication Instructions Recorded Confirmed amlodipine 10 mg tablet 10 mg PO DAILY 12/12/20 11/26/21 telmisartan 80 1 tab PO DAILY 12/12/20 11/26/21 mg-hydrochlorothiazide 25 mg tablet empagliflozin 10 mg tablet 10 mg PO DAILY 09/23/21 11/26/21 (Jardiance) montelukast 10 mg tablet 10 mg PO DAILY 11/26/21 11/26/21 Previous Rx's Medication Instructions Recorded blood sugar diagnostic (Contour #100 ea 12/13/20 Next Test Strips) albuterol sulfate 90 mcg/actuation 1 inh INHALATION QID PRN #8.5 g 12/22/20 aerosol inhaler nebulizers (AeroEclipse II #1 ea 12/22/20 Nebulizer) albuterol sulfate 0.63 mg/3 mL 0.63 mg (3 mL) INHALATION QID PRN 12/31/20 solution for nebulization #75 ml nebulizers (Compact Compressor #1 ea 12/31/20 Nebulizer) insulin pump cartridge (Omnipod #10 ea 03/13/21 Dash Insulin Pod) rosuvastatin 40 mg tablet 40 mg PO BEDTIME 90 Days #90 tab 03/13/21 blood-glucose transmitter (Dexcom 1 ea MISCELLANEOUS DIRECTED 90 04/16/21 G6 Transmitter) Days #1 cap Dexcom G6 Sensor (blood-glucose 1 ea TOPICAL DAILY 30 Days #3 ea NS 06/20/21 sensor) cetirizine 10 mg tablet (Zyrtec) 10 mg PO DAILY #14 tab 06/29/21 fluticasone propionate 50 1 spray INTRANASAL BID #16 g 06/29/21 mcg/actuation nasal spray,suspension (Flonase Allergy Relief) blood-glucose meter (FreeStyle #1 ea 07/19/21 Lite Meter) lancets 28 gauge (FreeStyle #200 ea 07/19/21 Lancets) blood sugar diagnostic (FreeStyle 1 strip MISCELLANEOUS .COMPLEX 10/07/21 Lite Strips) #200 strip sitagliptin 100 mg tablet (Januvia) 100 mg PO DAILY #30 tab 11/26/21 insulin lispro 100 unit/mL 0 - 100 unit (573521 mL) SUBCUT 11/27/21 subcutaneous solution (Humalog DAILY #90 ml U-100 Insulin) asryrkdadr-dbqycnlzscpgv-ellzumdg 1 cap PO Q4-6H PRN #14 cap 01/18/22 50 mg-300 mg-40 mg capsule (Fioricet) cefuroxime axetil 250 mg tablet 250 mg PO BID 7 Days #14 tab 01/18/22 <ED [place] - Last Filed: 01/18/22 13:53> Allergies/adverse reactions: Allergies Allergy/AdvReac Type Severity Reaction Status Date / Time canagliflozin [Invokana] Allergy Unknown rash Verified 11/26/21 13:39 liraglutide Allergy Unknown rash Verified 11/26/21 13:39 animals Allergy Unknown rash Uncoded 11/26/21 13:39 Pt states no known food Allergy Unknown Unknown Uncoded 11/26/21 13:39 allerg <ED [place] - Last Filed: 01/18/22 13:53> Review of Systems Review of Systems: Constitutional: No Fever, No Chills, No Fatigue, No Malaise ENT/Mouth: No Ear Pain, No Nasal Congestion, No Sinus Pain, No sore throat, No Rhinorrhea, No Swallowing Difficulty Eyes: No Eye Pain, No Swelling, No Redness, No Vision Changes Cardiovascular: + Chest Pain (resolved), + SOB, No Dyspnea on Exertion, No Edema, No Palpitations Respiratory: + Cough, No Sputum, + Wheezing, No Dyspnea Gastrointestinal: + Nausea, + Vomiting, No Diarrhea, No Constipation, No Abdominal pain Genitourinary: No irregular bleeding, + Dysuria, No Urinary Frequency, No Hematuria, No Flank Pain, No Urinary Flow Changes Musculoskeletal: No joint pain, No Myalgias, No Joint Swelling Skin: No Skin Lesions, No rash Neuro: No Weakness, No Numbness, No Paresthesias, No Dizziness, + Headache <ED [place] Last Filed: 01/18/22 13:53> Yes all other systems are reviewed and are negative <ED [place] - Last Filed: 01/18/22 13:53> Neurologic: Denies Abnormal speech present <ED [place] - Last Filed: 01/18/22 13:53> [facility] Past Medical History Attestation statement: The following information was validated with the patient. <ED [place] Last Filed: 01/18/22 13:53> Medical History: Medical History Asthma Diabetes Diabetes type 2, uncontrolled Diabetic 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 with type 2 diabetes mellitus Ectopic Hyperlipidemia Hypertension MCC (current) use of insulin Obesity due to excess calories Vitamin D deficiency <ED [place] Last Filed: 01/18/22 13:53> Surgical History: Surgical History History of surgical procedure on mouth Hx of ectopic <ED [place] Last Filed: 01/18/22 13:53> Family History Family History: Family History Father Diabetes mellitus Mother Diabetes mellitus Ovarian cancer <ED [place] - Last Filed: 01/18/22 13:53> Social History Social History: Social History Household Members: Family Alcohol intake: never Patient Tobacco Use Status: Never used Tobacco Smoked in Last 30 Days: No Use of substances other than those prescribed or required for medical reasons: No Advance Directives: No Advance Directives Information Provided: Yes Patient : No <ED [place] Last Filed: 01/18/22 13:53> Physical Exam ED Vital Signs: Vital Signs - 24 hr 01/18/22 07:32 01/18/22 08:11 01/18/22 08:55 Temperature 97.7 F 98.4 F Pulse Rate 87 88 83 Respiratory Rate 18 12 20 Blood Pressure 183/97 H 167/95 H Pulse Oximetry 96 96 01/18/22 11:01 Temperature 98.4 F Pulse Rate 85 Respiratory Rate 13 Blood Pressure 129/79 Pulse Oximetry 96 BMI result Body Mass Index 36.9 <ED [place] Last Filed: 01/18/22 13:53> Const General: cooperative, healthy appearing and no acute distress <ED [place] - Last Filed: 01/18/22 13:53> Orientation/consciousness: patient oriented x3 <ED [place] - Last Filed: 01/18/22 13:53> Limitations: no limitations <ED [place] Last Filed: 01/18/22 13:53> HENMT Head: Yes normal to inspection and Yes atraumatic <ED [place] - Last Filed: 01/18/22 13:53> Ears: hearing grossly normal bilaterally <ED [place] - Last Filed: 01/18/22 13:53> General nose exam: Normal external nose present <ED [place] Last Filed: 01/18/22 13:53> Face and sinus: Yes normal facial exam <ED [place] Last Filed: 01/18/22 13:53> Eyes General: appearance normal, both eyes and all related structures <ED [place] Last Filed: 01/18/22 13:53> EOM: EOMs intact bilaterally <Valeria Nichellet PA - Last Filed: 01/18/22 13:53> Neck Neck: Yes normal visual inspection and Yes no meningeal signs <Valeria Xie, PA - Last Filed: 01/18/22 13:53> Resp Effort & Inspection: normal respiratory effort <Valeria Xie PA - Last Filed: 01/18/22 13:53> Auscultation: wheezes (Mild) expiratory wheezes <Valeria Poulkrystinat, PA - Last Filed: 01/18/22 13:53> Cardio Rate: regular rate <Valeria Poulkrystinat PA - Last Filed: 01/18/22 13:53> Heart sounds: S1 normal heart sound present and S2 normal heart sound present <Valeria Xie, PA - Last Filed: 01/18/22 13:53> GI Inspection: Yes normal to inspection <Valeria Xie PA - Last Filed: 01/18/22 13:53> Palpation (GI): Soft to palpation, Tenderness to palpation present (GI) suprapubicly, no guarding and not rigid <Valeria Xie, PA - Last Filed: 01/18/22 13:53> General: Yes no CVA tenderness <Valeria Xie PA - Last Filed: 01/18/22 13:53> Back/Spine/Pelvis Back: no CVA tenderness <Valeria Stewardt PA - Last Filed: 01/18/22 13:53> Skin Rashes: no rashes <Valeria Poulelba, PA - Last Filed: 01/18/22 13:53> Wounds: no wounds <Valeria Poulkrystinat, PA - Last Filed: 01/18/22 13:53> Neuro General: patient oriented x3, gait normal, tone normal, moves all extremities, no meningeal signs, no focal motor deficits and CN's II-XI intact bilaterally <Valeria Anne-Marie, PA - Last Filed: 01/18/22 13:53> Cranial nerves: Yes CN's II-XII intact bilaterally and Yes Bilaterally intact EOM present <Valeria Xie PA - Last Filed: 01/18/22 13:53> Cognition (Neuro): normal cognition <ED [place] - Last Filed: 01/18/22 13:53> Speech: No Abnormal speech present <ED [place] - Last Filed: 01/18/22 13:53> Gait exam (Neuro): Normal gait present <ED [place] - Last Filed: 01/18/22 13:53> Extrem General: Yes normal to inspection, Yes no pedal edema and Yes no calf tenderness <ED [place] - Last Filed: 01/18/22 13:53> Course Course Course Narrative: -0933--no leukocytosis. H&H stable. Troponin negative. Labs otherwise unremarkable -UA infected > p.o. Ceftin given -COVID-19 negative XR chest 1V IMPRESSION: No acute cardiopulmonary findings. -0951--on re-evaluation reports headache improvement. Lungs still with mild end expiratory wheeze. Will order additional DuoNeb, Solu-Medrol, and p.o. Fioricet -1214-- patient comfortably sleeping and snoring. Will re-evaluate when awake -1344--on re-evaluation patient reports symptomatic improvement/resolution, denies headache, asymptomatic at present. Lungs CTA. Patient would not like to be prescribed prednisone as affects her glucose, and reports she has some at home.. Discussed worrisome signs and symptoms and strict return precautions and needed close follow-up with PCP. Patient verbalized understanding and feels safe for discharge home <ED [place] - Last Filed: 01/18/22 13:53> Medical Decision Making [facility] Narrative Medical decision making narrative: 46-year-old female with a PMHx of asthma, diabetes, hyperlipidemia, hypertension, vitamin-D deficiency, migraines, presenting to the ED complaining headache x3 days with associated nausea and vomiting. Also reports dysuria & suprapubic pressure, dry cough, wheezing, and mild SOB x2 weeks. On exam VSS, NAD, well appearing, no focal neuro deficits, +mild end exp wheeze, abd soft with mild suprapubic ttp. Concern for migraine headache vs UTI vs asthma exacerbation. Lower concern for SAH/meningitis or pyelo/renal stone. Rule out viral syndrome/COVID-19. Lower concern for pneumonia. Plan: EKG, labs, UA, CXR, COVID-19 testing, IVF, symptomatic treatment, DuoNeb, re-evaluate <ED [place] - Last Filed: 01/18/22 13:53> Medical Records Medical records reviewed: Yes I reviewed the patient's medical records. <ED [place] - Last Filed: 01/18/22 13:53> Lab Data Lab results reviewed: Yes I reviewed the patient's lab results. <ED [place] - Last Filed: 01/18/22 13:53> Result diagrams: : 01/18/22 08:45 01/18/22 08:45 <ED [place] - Last Filed: 01/18/22 13:53> Labs: Lab Results 01/18/22 01/18/22 01/18/22 Range/Units 08:19 08:19 08:44 WBC (4.8-10.8) X10*3/uL RBC (4.20-5.50) X10*6/uL Hgb (12.0-16.0) g/dl Hct (37.0-47.0) % MCV (80.0-98.0) fL MCH (27.0-33.0) pg MCHC (31.0-35.0) g/dl RDW (11.0-16.0) % Plt Count (160-400) X10*3/uL MPV (9.4-12.3) fL Immature Gran % (Auto) (0.0-0.4) % Neut % (Auto) (45-73) % Lymph % (Auto) (20-40) % Barron % (Auto) (2-11) % Eos % (Auto) (0-4) % Baso % (Auto) (0-2) % Lymph # (Auto) (1.2-4.9) X10*3/uL Barron # (Auto) (0.1-1.2) X10*3/uL Eos # (Auto) (0.0-0.4) X10*3/uL Baso # (Auto) (0.0-0.2) X10*3/uL Abs Immat Gran (auto) (0.00-0.03) X10*3/uL Absolute Neuts (auto) (2.0-8.3) x10*3/uL Absolute Nucleated RBC (0.0-0.012) X10*3/uL Nucleated RBC % (auto) (0.0-0.2) /100WBC Sodium (135-145) mmol/L Potassium (3.3-5.1) mmol/L Chloride (96-108) mmol/L Carbon Dioxide (22-29) mmol/L Anion Gap (12-20) BUN (9-16) mg/dL Creatinine (0.5-1.4) mg/dL Estim Creat Clear Calc Estimated GFR Random Glucose (60-115) mg/dL Calcium (8.4-10.2) mg/dL Troponin I High Sens (<3.5-17.0) ng/L Urine Color YELLOW Urine Appearance CLOUDY Urine pH 6.0 (5.0-8.0) Ur Specific [place] 1.025 (1.005-1.025) Urine Protein NEG (NEG-TRACE) MG/DL Urine Glucose (UA) >=1000 H (NEG) MG/DL Urine Ketones NEG (NEG) MG/DL Urine Blood 2+ H (NEG) Urine Nitrite NEG (NEG) Ur Leukocyte Esterase TRACE H (NEG) Urine RBC 15-29 H (0) /HPF Urine WBC TNTC H (0-4) /HPF Ur Squamous Epith Cells 1+ /LPF Urine Bacteria 2+ /LPF Urine Test NEGATIVE (NEGATIVE) COVID-19 (DANK) Negative (Negative) COVID-19 Clin Com See Note 01/18/22 01/18/22 01/18/22 Range/Units 08:45 08:45 08:45 WBC 10.1 (4.8-10.8) X10*3/uL RBC 5.43 (4.20-5.50) X10*6/uL Hgb 14.5 (12.0-16.0) g/dl Hct 44.1 (37.0-47.0) % MCV 81.2 (80.0-98.0) fL MCH 26.7 L (27.0-33.0) pg MCHC 32.9 (31.0-35.0) g/dl RDW 14.1 (11.0-16.0) % Plt Count 323 (160-400) X10*3/uL MPV 9.6 (9.4-12.3) fL Immature Gran % (Auto) 0.4 (0.0-0.4) % Neut % (Auto) 70.6 (45-73) % Lymph % (Auto) 21.0 (20-40) % Barron % (Auto) 4.6 (2-11) % Eos % (Auto) 3.1 (0-4) % Baso % (Auto) 0.3 (0-2) % Lymph # (Auto) 2.1 (1.2-4.9) X10*3/uL Barron # (Auto) 0.5 (0.1-1.2) X10*3/uL Eos # (Auto) 0.3 (0.0-0.4) X10*3/uL Baso # (Auto) 0.0 (0.0-0.2) X10*3/uL Abs Immat Gran (auto) 0.04 H (0.00-0.03) X10*3/uL Absolute Neuts (auto) 7.1 (2.0-8.3) x10*3/uL Absolute Nucleated RBC 0.000 (0.0-0.012) X10*3/uL Nucleated RBC % (auto) 0.0 (0.0-0.2) /100WBC Sodium 139 (135-145) mmol/L Potassium 3.7 (3.3-5.1) mmol/L Chloride 103 (96-108) mmol/L Carbon Dioxide 27 (22-29) mmol/L Anion Gap 13 (12-20) BUN 7 L (9-16) mg/dL Creatinine 0.61 (0.5-1.4) mg/dL Estim Creat Clear Calc 151.5 Estimated GFR > 60 Random Glucose 133 H (60-115) mg/dL Calcium 9.3 (8.4-10.2) mg/dL Troponin I High Sens < 3.5 (<3.5-17.0) ng/L Urine Color Urine Appearance Urine pH (5.0-8.0) Ur Specific [place] (1.005-1.025) Urine Protein (NEG-TRACE) MG/DL Urine Glucose (UA) (NEG) MG/DL Urine Ketones (NEG) MG/DL Urine Blood (NEG) Urine Nitrite (NEG) Ur Leukocyte Esterase (NEG) Urine RBC (0) /HPF Urine WBC (0-4) /HPF Ur Squamous Epith Cells /LPF Urine Bacteria /LPF Urine Test (NEGATIVE) COVID-19 (DANK) (Negative) COVID-19 Clin Com <ED [place] - Last Filed: 01/18/22 13:53> Discharge Plan Discharge Clinical Impression: Migraine, Asthma with acute exacerbation, UTI (urinary tract infection) <ED [place] - Last Filed: 01/18/22 13:53> Patient Disposition: Home, Self-Care <ED [place] - Last Filed: 01/18/22 13:53> Instructions: Asthma (DC), Urinary Tract Infection in Women (DC), Migraine Headache (ED) <ED [place] - Last Filed: 01/18/22 13:53> Additional Instructions: You have a urinary tract infection. Ceftin is an antibiotic please take as prescribed. You were treated for an asthma exacerbation, continue taking your inhalers and use her nebulizer machine at home. If her symptoms persist or worsen you should be taking the prednisone. Please follow-up with her doctor. Your set will help with her headaches, take as needed If symptoms worsen, constant worsening headache, nausea/vomiting, fever, shortness of breath please return to the ED <ED [place] - Last Filed: 01/18/22 13:53> Prescriptions: New cefuroxime axetil 250 mg tablet 250 mg PO BID 7 Days Qty: 14 0RF gceolvbyuv-stbojzqyoeoec-ypzh [Fioricet] 50-300-40 mg capsule 1 cap PO Q4-6H PRN (Reason: pain) Qty: 14 0RF No Action (DME) Contour Next Test Strips Strip See Rx Instructions .ROUTE .MEDSUPPLY Qty: 100 6RF Rx Instructions: 6 times a day blood-glucose transmitter [Dexcom G6 Transmitter] Device 1 ea miscellaneous DIRECTED 90 Days Qty: 1 3RF Dexcom G6 Sensor Device 1 ea topical DAILY 30 Days Qty: 3 11RF FreeStyle Lite Strips Strip 1 strip miscellaneous .COMPLEX Qty: 200 11RF Rx Instructions: 1 strip miscellaneous five times a day; insulin lispro [Humalog U-100 Insulin] 100 unit/mL solution 0 - 100 unit subcut DAILY Qty: 90 1RF (DME) AeroEclipse II Nebulizer [facility] See Rx Instructions .ROUTE .MEDSUPPLY Qty: 1 0RF Rx Instructions: As directed albuterol sulfate 90 mcg/actuation HFA aerosol inhaler 1 inh inhalation QID PRN (Reason: shortness of breath or wheezing) Qty: 8.5 0RF (DME) Compact Compressor Nebulizer [facility] See Rx Instructions .ROUTE .MEDSUPPLY Qty: 1 0RF Rx Instructions: As directed albuterol sulfate 0.63 mg/3 mL solution for nebulization 0.63 mg inhalation QID PRN (Reason: shortness of breath or wheezing) Qty: 75 0RF fluticasone propionate [Flonase Allergy Relief] 50 mcg/actuation spray,suspension 1 spray intranasal BID Qty: 16 0RF Rx Instructions: administer into each nostril cetirizine [Zyrtec] 10 mg tablet 10 mg PO DAILY Qty: 14 0RF (DME) blood-glucose meter [FreeStyle Lite Meter] Kit See Rx Instructions .ROUTE .MEDSUPPLY Qty: 1 0RF Rx Instructions: As directed (DME) lancets [FreeStyle Lancets] 28 gauge [facility] [place] See Rx Instructions .ROUTE .MEDSUPPLY Qty: 200 1RF Rx Instructions: 5x/day montelukast 10 mg tablet 10 mg PO DAILY 0RF Januvia 100 mg tablet 100 mg PO DAILY Qty: 30 6RF telmisartan-hydrochlorothiazid 80-25 mg tablet 1 tab PO DAILY 0RF amlodipine 10 mg tablet 10 mg PO DAILY 0RF (DME) Omnipod Dash Insulin Pod Cartridge See Rx Instructions .ROUTE .MEDSUPPLY Qty: 10 6RF Rx Instructions: every 3 days rosuvastatin 40 mg tablet 40 mg PO BEDTIME 90 Days Qty: 90 2RF Jardiance 10 mg tablet 10 mg PO DAILY 0RF <ED [place] - Last Filed: 01/18/22 13:53> Referrals: Shandra Diaz MD [Primary Care Provider] - 2 days <ED [place] - Last Filed: 01/18/22 13:53> Interventions: ED Discharge Assessment Last Done: 01/18/22 14:04 <ED [place] - Last Filed: 01/18/22 13:53> Discharge Date/Time: 01/18/22 14:05 <ED [place] - Last Filed: 01/18/22 13:53>
[2022-01-18] MEDS: Albuterol/Iprat 2.5/0.5MG 3 ML AMPUL.NEB INHALE (08:54)
[2022-01-18 08:55] VITALS: PULSE 83; RESP 20; O2SAT 97
[2022-01-18] MEDS: diphenhydrAMINE HCL 50 MG/ML VIAL 12.5 MG IVPUSH (08:56)
[2022-01-18] MEDS: 0.9 % Sodium Chloride 1,000 ML 999 ML IV (08:56)
[2022-01-18] MEDS: Ketorolac Tromethamine 15 MG/ML VIAL IVPUSH (08:56)
[2022-01-18] MEDS: Metoclopramide HCl 10 MG/2 ML VIAL IVPUSH (08:56)
[2022-01-18 08:58] LABS: Basophils Percent Auto 0.3 % (0-2); Eosinophils Absolute Auto 0.3 X10*3/uL (0.0-0.4); Eosinophils Percent Auto 3.1 % (0-4); Hematocrit 44.1 % (37.0-47.0); Hemoglobin 14.5 g/dl (12.0-16.0); Imm Gran Abs Auto 0.04 X10*3/uL (0.00-0.03); Imm Gran Pct Auto 0.4 % (0.0-0.4); Lymphocytes Absolute Auto 2.1 X10*3/uL (1.2-4.9); Mean Corpuscular HGB Conc 32.9 g/dl (31.0-35.0); Mean Corpuscular Hemoglobin 26.7 pg (27.0-33.0); Mean Corpuscular Volume 81.2 fL (80.0-98.0); Mean Platelet Volume 9.6 fL (9.4-12.3); Monocytes Absolute Auto 0.5 X10*3/uL (0.1-1.2); Monocytes Percent Auto 4.6 % (2-11); Neutrophils Absolute Auto 7.1 x10*3/uL (2.0-8.3); Neutrophils Percent Auto 70.6 % (45-73); Platelet Count 323 X10*3/uL (160-400); Red Blood Count 5.43 X10*6/uL (4.20-5.50); Red Cell Distribution Width 14.1 % (11.0-16.0); White Blood Count 10.1 X10*3/uL (4.8-10.8)
[2022-01-18 09:13] LABS: COVID-19 Test Negative (Negative)
[2022-01-18 09:17] LABS: Anion Gap 13 (12-20); Blood Urea Nitrogen 7 mg/dL (9-16); Calcium 9.3 mg/dL (8.4-10.2); Carbon Dioxide 27 mmol/L (22-29); Chloride 103 mmol/L (96-108); Creatinine Clr Calc Pharmacy 151.5; Estimated Glomerular Filt Rate > 60; Glucose Random 133 mg/dL (60-115); Potassium 3.7 mmol/L (3.3-5.1); Sodium 139 mmol/L (135-145)
[2022-01-18 09:23] LABS: Troponin-I High Sensitivity < 3.5 ng/L (<3.5-17.0)
[2022-01-18] MEDS: Butalb/Acetamin/Caff 50/325/40 TABLET 1 TAB PO (10:04)
[2022-01-18] MEDS: methylPREDNISolone Sod Succ 125 MG/2 ML VIAL IVPUSH (10:05)
[2022-01-18 11:01] VITALS: BP 129/79; PULSE 85; RESP 13; TEMP 36.9; O2SAT 96
== END 2022-01-18 14:05 | disposition home or self-care (01) ==
PROVIDERS: Physician Assistant; Emergency Provider Emergency Medicine; PCP Internal Medicine
DX: G43.909 Migraine, unspecified, not intractable, without status migrainosus (principal); J45.901 Unspecified asthma with (acute) exacerbation; N39.0 Urinary tract infection, site not specified; Z20.822 Contact with and (suspected) exposure to COVID-19; E11.9 Type 2 diabetes mellitus without complications; I10 Essential (primary) hypertension; E78.5 Hyperlipidemia, unspecified; Z79.02 Long term (current) use of antithrombotics/antiplatelets; Z79.4 Long term (current) use of insulin
CPT/HCPCS: 71045; 80048; 81001; 81025; 84484; 85025; 87086; 87088; 87186; 87635; 93005; 94640; 96361; 96374; 96375; 99284; 99285; J1200; J1885; J2765; J2930

== ENCOUNTER → 2022-02-28 13:48 | Outpatient (BNVA) | payer OTHER, SELFPAY | PROVIDERS: PCP Internal Medicine; Visit Provider Nurse Practitioner Gerontology | DX: E11.65 Type 2 diabetes mellitus with hyperglycemia (principal); E11.42 Type 2 diabetes mellitus with diabetic 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; E78.00 Pure hypercholesterolemia, unspecified; E55.9 Vitamin D deficiency, unspecified; E66.01 Morbid (severe) obesity due to excess calories; I10 Essential (primary) hypertension; J45.901 Unspecified asthma with (acute) exacerbation; Z96.41 Presence of insulin pump (external) (internal); Z79.4 Long term (current) use of insulin; Z68.36 Body mass index [BMI] 36.0-36.9, adult | CPT/HCPCS: 82947; 83036 ==

== ENCOUNTER → 2022-04-15 12:59 | Outpatient (BNVA) | payer OTHER, SELFPAY | PROVIDERS: PCP Internal Medicine; Visit Provider Registered Nurse Diabetes Educator | DX: E11.42 Type 2 diabetes mellitus with diabetic 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 (principal) ==

== ENCOUNTER → 2022-05-02 08:11 | Outpatient (BNVA) | payer OTHER, SELFPAY | PROVIDERS: PCP Internal Medicine; Visit Provider Nurse Practitioner Gerontology | DX: E11.65 Type 2 diabetes mellitus with hyperglycemia (principal); E11.42 Type 2 diabetes mellitus with diabetic 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; E78.00 Pure hypercholesterolemia, unspecified; E55.9 Vitamin D deficiency, unspecified; E66.01 Morbid (severe) obesity due to excess calories; I10 Essential (primary) hypertension; Z79.4 Long term (current) use of insulin; Z68.37 Body mass index [BMI] 37.0-37.9, adult; Z96.41 Presence of insulin pump (external) (internal) | CPT/HCPCS: 82947 ==

== ENCOUNTER 2022-06-06 09:24 | Outpatient (REF) | payer OTHER, SELFPAY ==
[2022-06-06 09:44] LABS: MANUAL DIFF FLAG NO
[2022-06-06 09:57] LABS: Basophils Percent Auto 0.3 % (0-2); Eosinophils Absolute Auto 0.1 X10*3/uL (0.0-0.4); Hematocrit 40.5 % (37.0-47.0); Hemoglobin 13.3 g/dl (12.0-16.0); Imm Gran Abs Auto 0.04 X10*3/uL (0.00-0.03); Imm Gran Pct Auto 0.5 % (0.0-0.4); Lymphocytes Percent Auto 34.4 % (20-40); Mean Corpuscular HGB Conc 32.8 g/dl (31.0-35.0); Mean Corpuscular Hemoglobin 26.4 pg (27.0-33.0); Mean Corpuscular Volume 80.5 fL (80.0-98.0); Mean Platelet Volume 9.5 fL (9.4-12.3); Monocytes Absolute Auto 0.5 X10*3/uL (0.1-1.2); Monocytes Percent Auto 6.1 % (2-11); Neutrophils Percent Auto 57.7 % (45-73); Platelet Count 323 X10*3/uL (160-400); Red Blood Count 5.03 X10*6/uL (4.20-5.50); Red Cell Distribution Width 14.1 % (11.0-16.0); White Blood Count 8.6 X10*3/uL (4.8-10.8)
[2022-06-06 10:30] LABS: Alanine Aminotransferase 27 U/L (0-31); Alkaline Phosphatase 108 U/L (39-117); Anion Gap 13 (12-20); Aspartate Amino Transferase 15 U/L (5-31); Bilirubin Total 1.1 mg/dL (0.0-1.0); Blood Urea Nitrogen 11 mg/dL (9-16); Calcium 8.9 mg/dL (8.4-10.2); Carbon Dioxide 24 mmol/L (22-29); Chloride 104 mmol/L (96-108); Estimated Glomerular Filt Rate > 60; Glucose Random 206 mg/dL (60-115); Potassium 4.1 mmol/L (3.3-5.1); Sodium 137 mmol/L (135-145); Total Protein 6.9 g/dL (6.5-8.0)
[2022-06-06 10:31] LABS: Estimated Average Glucose 209 mg/dL; Hemoglobin A1c % 8.9 %
== END 2022-06-06 09:25 | disposition home or self-care (01) ==
LOC: HO.LAB 09:24
PROVIDERS: Absent Provider Internal Medicine; PCP Internal Medicine; Visit Provider Nurse Practitioner Gerontology
DX: E11.65 Type 2 diabetes mellitus with hyperglycemia (principal); I10 Essential (primary) hypertension; J45.41 Moderate persistent asthma with (acute) exacerbation
CPT/HCPCS: 36415; 80053; 83036; 85025

== ENCOUNTER → 2022-06-17 08:24 | Outpatient (BNVA) | payer SELFPAY | PROVIDERS: PCP Internal Medicine | DX: R76.11 Nonspecific reaction to tuberculin skin test without active tuberculosis (principal) ==

== ENCOUNTER → 2022-06-25 08:06 | Outpatient (BNVA) | payer OTHER, SELFPAY | PROVIDERS: PCP Internal Medicine; Visit Provider Registered Nurse Diabetes Educator | DX: E11.42 Type 2 diabetes mellitus with diabetic 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 (principal) | CPT/HCPCS: 99211 ==

== ENCOUNTER 2022-07-04 08:04 | Outpatient (REF) | payer OTHER, SELFPAY ==
--- NOTE | ~2022-07-04 | US_ITS ---
EXAMINATION: US EXTREMITY NONVASCULAR CLINICAL INFORMATION: Left arm lump. COMPARISON: None TECHNIQUE: Galeano-scale imaging of the soft tissues of the left arm using a linear transducer. FINDINGS: There are 2 small hypoechoic areas seen in the muscles of the left arm measuring 0.6 x 0.4 x 0.5 cm and 1.1 x 0.8 x 0.9 cm. These appear avascular. Ultrasound appearance is nonspecific. These are not suggestive of lipomas. US/US extremity nonvascular IMPRESSION: Two small hypoechoic areas in the muscles of the left arm. Ultrasound appearance is nonspecific, and these are not suggestive of lipomas.
== END 2022-07-04 08:05 | disposition home or self-care (01) ==
LOC: HO.HMGCX 08:04
PROVIDERS: PCP Internal Medicine; Visit Provider Internal Medicine
DX: D17.22 Benign lipomatous neoplasm of skin and subcutaneous tissue of left arm (principal)
CPT/HCPCS: 76882

== ENCOUNTER → 2022-07-09 08:05 | Outpatient (BNVA) | payer OTHER, SELFPAY | PROVIDERS: PCP Internal Medicine; Visit Provider Registered Nurse Diabetes Educator | DX: E11.65 Type 2 diabetes mellitus with hyperglycemia (principal); Z79.4 Long term (current) use of insulin | CPT/HCPCS: 99211 ==

== ENCOUNTER 2022-07-11 07:00 | Outpatient (RCR) | payer OTHER, SELFPAY ==
--- NOTE | 2022-06-13 07:56 | MHC.PT.EP ---
[facility] [place] Office [place] Office [place] Office [address] [place] [address] [phone] F: [phone] F: [phone] F: [phone] F: [phone] Physical Therapy Plan of Care Date of Evaluation: Date of Surgery: Diagnosis: L shoulder pain Assessment: 46 y/o F referred to PT with L shoulder pain resulting in pain and difficulty with reaching overhead, lifting, grooming, and computer work. S/s consistent with cervical derangement and R shoulder tendinopathy secondary to decreased cervical/ shoulder AROM, decreased shoulder strength (especially in ER/flexion), pain, and impaired postural awareness. REcommend PT 2x/week for 6 weeks to address impairments, implement HEP, and optimize functional mobility. Frequency and Duration: The patient will be seen 2x/week for 6 weeks Short Term Goals: 3 weeks 1 I with HEP 2. Improve L shoulder flexion to 130 with pain < 3/10 3. Pt will sit with lumbar roll without cues Residential Goals: 6 weeks 1. I with HEP and self management of sx 2. Pt will be able to reach overhead to put away dishes with pain < 3/10 3. Improve strength by one MMT grade to facilitate lifting Treatment Plan: Modalities to reduce pain, spasms and effusion. Manual therapy to restore motion and function. Therapeutic exercise to improve strength and flexibility. Neuromuscular re-education for posture and balance. Therapeutic activities to return to functional activities of daily living. Electronically signed by: Sosa Pina PT Please sign and return to therapist. Thank you for your referral.
--- NOTE | 2022-08-22 11:11 | MHC.PT.DC ---
[facility] [place] Office [place] Office [place] Office [address] Nida Sun [address] [phone] F: [phone] F: [phone] F: [phone] F: [phone] Physical Therapy Discharge Report Diagnosis: L shoulder pain Date of Surgery: Date of Evaluation: 06/13/22 Date of Discharge: 08/22/22 Treatments to Date: 5 Cancellations to Date: 1 No Shows to Date: 1 Discharge Status: Discharge Summary: Pt was put on a 30 day hold and did not f/u with further visits. She made limited progress with PT and has f/u with MD. D/c at this time. Electronically signed by: Sosa Pina PT Please sign and return to therapist. Thank you for your referral.
== END 2022-08-22 11:11 | disposition home or self-care (01) ==
LOC: HO.PTCHIC 07:00
PROVIDERS: PCP Internal Medicine; Visit Provider Internal Medicine
DX: M25.512 Pain in left shoulder (principal)
CPT/HCPCS: 97014; 97110; 97140; 97161

== ENCOUNTER 2022-07-12 22:30 | Emergency (ER) | payer OTHER, SELFPAY ==
--- NOTE | 2022-07-12 | ECG_ITS ---
Test Reason : CHEST PAIN Blood Pressure : / mmHG Vent. Rate : 095 BPM Atrial Rate : 095 BPM P-R Int : 130 ms QRS Dur : 098 ms QT Int : 368 ms P-R-T Axes : 063 068 044 degrees QTc Int : 462 ms Normal sinus rhythm Normal ECG When compared with ECG of 18-JAN-2022 08:44, No significant change was found Referred By: Generic ED Physician Electronically Signed By:IVETH ELLIOTT
--- NOTE | ~2022-07-12 | XR_ITS ---
EXAMINATION: XR CHEST CLINICAL INFORMATION: Cough COMPARISON: None TECHNIQUE: Frontal view of the chest was obtained. FINDINGS: Lung volumes are symmetric. No focal consolidation is seen. No evidence of pneumothorax, pleural effusion, or pulmonary edema. The cardiomediastinal contour is unremarkable. No acute osseous findings are seen. XR/XR chest 1V IMPRESSION: No acute cardiopulmonary findings.
[2022-07-12 23:43] VITALS: BP 142/94; PULSE 96; RESP 20; TEMP 36.7; O2SAT 96; BMI 39.5
--- NOTE | 2022-07-13 00:14 | ED_ITS ---
HPI - Asthma General Chief Complaint: Asthma Stated Complaint: Asthma Time Seen by Provider: 07/12/22 23:50 Source: patient Mode of arrival: ambulatory Limitations: no limitations History of Present Illness HPI Narrative: 46 yo female with hx of asthma, HLD, DM here with c/o asthma x 3 days no fevers/sputum production states she is taking nebs at home with no relief. At this time she feels she would get better if she had prednisone. MD complaint: asthma attack Onset (ago): day(s) (3) Severity: moderate Context: allergen exposure Associated symptoms: dry cough Asthma History: childhood onset Treatments Prior to Arrival: inhaled bronchodilator Related Data Home Medications Medication Instructions Recorded Confirmed amlodipine 10 mg tablet 10 mg PO DAILY 12/12/20 05/02/22 telmisartan 80 1 tab PO DAILY 12/12/20 05/02/22 mg-hydrochlorothiazide 25 mg tablet empagliflozin 10 mg tablet 10 mg PO DAILY 09/23/21 05/02/22 (Jardiance) montelukast 10 mg tablet 10 mg PO DAILY 11/26/21 11/26/21 Previous Rx's Medication Instructions Recorded blood sugar diagnostic (Contour #100 ea 12/13/20 Next Test Strips) albuterol sulfate 90 mcg/actuation 1 inh inhalation QID PRN shortness 12/22/20 aerosol inhaler of breath or wheezing #8.5 grams nebulizers (AeroEclipse II #1 ea 12/22/20 Nebulizer) albuterol sulfate 0.63 mg/3 mL 0.63 mg (3 mL) inhalation QID PRN 12/31/20 solution for nebulization shortness of breath or wheezing #75 mL nebulizers (Compact Compressor #1 ea 12/31/20 Nebulizer) rosuvastatin 40 mg tablet 40 mg PO BEDTIME 90 days #90 tabs 03/13/21 cetirizine 10 mg tablet (Zyrtec) 10 mg PO DAILY #14 tabs 06/29/21 fluticasone propionate 50 1 spray intranasal BID #16 grams 06/29/21 mcg/actuation nasal spray,suspension (Flonase Allergy Relief) blood-glucose meter (FreeStyle #1 ea 07/19/21 Lite Meter kit) lancets 28 gauge (FreeStyle #200 ea 07/19/21 Lancets) blood sugar diagnostic (FreeStyle 1 strip miscellaneous .COMPLEX 10/07/21 Lite Strips) #200 strips grevuavstq-fwfrsgwpogcri-ftnysikp 1 cap PO Q4-6H PRN pain #14 caps 01/18/22 50 mg-300 mg-40 mg capsule (Fioricet) cefuroxime axetil 250 mg tablet 250 mg PO BID 7 days #14 tabs 01/18/22 blood-glucose transmitter (Dexcom 1 ea miscellaneous DIRECTED 90 02/27/22 G6 Transmitter device) days #1 cap insulin lispro-aabc 100 unit/mL See Rx Instructions subcut DAILY 02/28/22 subcutaneous solution (Lyumjev 90 days #140 mL U-100 Insulin) insulin pump cart,cont inf,BT #15 ea 02/28/22 (Omnipod Dash Pods (Gen 4) subcutaneous cartridge) fluticasone furoate 200 1 inh inhalation DAILY 30 days #1 03/05/22 mcg-vilanterol 25 mcg/dose ea inhalation powder (Breo Ellipta) dulaglutide 1.5 mg/0.5 mL 1.5 mg (0.5 mL) subcut QWEEK #2 mL 05/27/22 subcutaneous pen injector (Trulicity) Dexcom G6 Sensor (blood-glucose 1 ea topical DAILY 30 days #3 ea 07/04/22 sensor) prednisone 20 mg tablet 60 mg PO DAILY 4 days #12 tabs 07/13/22 Allergies Allergy/AdvReac Type Severity Reaction Status Date / Time canagliflozin [Invokana] Allergy Unknown rash Verified 07/12/22 23:42 liraglutide Allergy Unknown rash Verified 07/12/22 23:42 animals Allergy Unknown rash Uncoded 07/12/22 23:42 Pt states no known food Allergy Unknown Unknown Uncoded 07/12/22 23:42 allerg Review of Systems Review of Systems: Constitutional : No Fever, No Chills ENT/Mouth : No Hoarseness, No sore throat, No Rhinorrhea Eyes: No Redness, No Discharge, No Vision Changes Cardiovascular : No Chest Pain, positive SOB, positive Dyspnea on Exertion, No Edema Respiratory : positive Cough, No Sputum, positive Wheezing, Gastrointestinal : No Nausea, No Vomiting, No Diarrhea, No abdominal Pain Genitourinary : No Dysuria, No Hematuria Musculoskeletal : No joint pain, No Myalgias Skin : No rash Neuro : No Weakness, No Numbness, No Headache Psych : No anxiety, depression Heme/Lymph: No Bruising, No Bleeding Endocrine : No Polyuria, No Polydipsia All other systems reviewed and are negative [facility] Past Medical History Attestation statement: The following information was validated with the patient. 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 Obesity due to excess calories Vitamin D deficiency Surgical History History of surgical procedure on mouth Hx of ectopic Family History Family History Father Diabetes mellitus Mother Diabetes mellitus Ovarian cancer Social History Social History Household Members: Family Alcohol intake: never Patient Tobacco Use Status: Never used Tobacco Advance Directives: No Advance Directives Information Provided: No Physical Exam Vital Signs: Vital Signs: Last Vital Signs Temp 98.2 F 07/13/22 00:29 Pulse 94 07/13/22 01:11 Resp 22 H 07/13/22 01:11 BP 164/108 H 07/13/22 00:29 Pulse Ox 94 07/13/22 00:29 O2 Del Method 07/13/22 00:29 BMI result Body Mass Index 39.5 Appearance: Alert. Oriented X3. No acute distress. Eating Brito's Eyes: Pupils equal, round and reactive to light. ENT: Pharynx normal. Neck: Normal inspection. Neck supple. CVS: Normal heart rate and rhythm. Pulses normal. Respiratory: No respiratory distress. Breath sounds diffuse exp wheezes noted Abdomen: Soft and nontender. Skin: Skin warm and dry. Normal skin color. Normal skin turgor. Extremities: No lower extremity edema. No calf ttp Neuro: Oriented X 3. No motor deficit. No sensory deficit. Course Course Course Narrative: repeat neb ordered she is improving at this time very faint wheezes noted 95% on RA feels much better stable for DC MDM - Asthma MDM Narrative Medical decision making narrative: 46 yo female with hx of HLD, DM, asthma here with c/o asthma exacerbation and wheezing at this time will need CXR, COVID swab - neb ordered and PO prednisone - dispo per results and clinical improvement Lab Data Labs: Lab Results 07/13/22 Range/Units 00:03 COVID-19 (DANK) Negative (Negative) COVID-19 Clin Com See Note Discharge Plan Discharge Clinical Impression: Asthma Qualifiers: Asthma severity: moderate Asthma persistence: persistent Asthma complication type: with acute exacerbation Qualified Code(s): J45.41 - Moderate persistent asthma with (acute) exacerbation Patient Disposition: Home, Self-Care Instructions: Asthma (ED) Additional Instructions: return to ED for any worsening symptoms or concerns please monitor your blood sugars while on prednisone Prescriptions: New prednisone 20 mg tablet 60 mg PO DAILY 4 Days Qty: 12 0RF No Action (DME) Contour Next Test Strips Strip See Rx Instructions .ROUTE .MEDSUPPLY Qty: 100 6RF Rx Instructions: 6 times a day FreeStyle Lite Strips Strip 1 strip miscellaneous .COMPLEX Qty: 200 11RF Rx Instructions: 1 strip miscellaneous five times a day; Dexcom G6 Transmitter Device 1 ea miscellaneous DIRECTED 90 Days Qty: 1 3RF Breo Ellipta 200-25 mcg/dose blister with device 1 inh inhalation DAILY 30 Days Qty: 1 6RF Trulicity 1.5 mg/0.5 mL pen injector 1.5 mg subcut QWEEK Qty: 2 5RF Dexcom G6 Sensor Device 1 ea topical DAILY 30 Days Qty: 3 11RF (DME) AeroEclipse II Nebulizer Misc See Rx Instructions .ROUTE .MEDSUPPLY Qty: 1 0RF Rx Instructions: As directed albuterol sulfate 90 mcg/actuation HFA aerosol inhaler 1 inh inhalation QID PRN (Reason: shortness of breath or wheezing) Qty: 8.5 0RF (DME) Compact Compressor Nebulizer Misc See Rx Instructions .ROUTE .MEDSUPPLY Qty: 1 0RF Rx Instructions: As directed albuterol sulfate 0.63 mg/3 mL solution for nebulization 0.63 mg inhalation QID PRN (Reason: shortness of breath or wheezing) Qty: 75 0RF fluticasone propionate [Flonase Allergy Relief] 50 mcg/actuation spray,suspension 1 spray intranasal BID Qty: 16 0RF Rx Instructions: administer into each nostril cetirizine [Zyrtec] 10 mg tablet 10 mg PO DAILY Qty: 14 0RF cefuroxime axetil 250 mg tablet 250 mg PO BID 7 Days Qty: 14 0RF yqdnlvcoky-zzgxazxogtofk-card [Fioricet] 50-300-40 mg capsule 1 cap PO Q4-6H PRN (Reason: pain) Qty: 14 0RF (DME) blood-glucose meter [FreeStyle Lite Meter] Kit See Rx Instructions .ROUTE .MEDSUPPLY Qty: 1 0RF Rx Instructions: As directed (DME) lancets [FreeStyle Lancets] 28 gauge misc See Rx Instructions .ROUTE .MEDSUPPLY Qty: 200 1RF Rx Instructions: 5x/day montelukast 10 mg tablet 10 mg PO DAILY telmisartan-hydrochlorothiazid 80-25 mg tablet 1 tab PO DAILY amlodipine 10 mg tablet 10 mg PO DAILY rosuvastatin 40 mg tablet 40 mg PO BEDTIME 90 Days Qty: 90 2RF Jardiance 10 mg tablet 10 mg PO DAILY Lyumjev U-100 Insulin 100 unit/mL solution See Rx Instructions subcut DAILY 90 Days Qty: 140 3RF Rx Instructions: up to 150 mg/dl via pump subcut daily; (DME) Omnipod Dash Pods (Gen 4) Cartridge See Rx Instructions subcut Q3D Qty: 15 11RF Rx Instructions: As directed change every 2 day Referrals: Shandra Diaz MD [Primary Care Provider] - (if not better)
[2022-07-13 00:29] VITALS: BP 164/108; PULSE 99; RESP 17; TEMP 36.8; O2SAT 94
[2022-07-13 00:39] LABS: COVID-19 Test Negative (Negative); IDNOW Serial# 16C4AD1C
[2022-07-13 01:11] VITALS: PULSE 94; RESP 22; O2SAT 99
[2022-07-13] MEDS: predniSONE 20 MG TABLET 60 MG PO (01:25)
[2022-07-13] MEDS: Albuterol Sulfate (0.083%) 2.5 MG/3 ML VIAL.NEB INHALE (02:18)
[2022-07-13 03:00] VITALS: BP 142/72; PULSE 84; RESP 18; O2SAT 97
== END 2022-07-13 03:45 | disposition home or self-care (01) ==
PROVIDERS: Emergency Provider Emergency Medicine; PCP Internal Medicine
DX: J45.41 Moderate persistent asthma with (acute) exacerbation (principal); R07.89 Other chest pain; R05.9 Cough, unspecified; Z20.822 Contact with and (suspected) exposure to COVID-19; Z79.899 Other long term (current) drug therapy
CPT/HCPCS: 71045; 87635; 93005; 94640; 99284

== ENCOUNTER 2022-07-13 18:48 | Inpatient (IN) | payer OTHER, SELFPAY ==
--- NOTE | ~2022-07-13 | CT_ITS ---
EXAMINATION: CT HEAD WITHOUT CONTRAST CLINICAL INFORMATION: Left leg weakness COMPARISON: Brain MRI to 01/05/2022, head CT 08/26/2020 TECHNIQUE: Imaging was performed from the skull base to vertex without intravenous administration of contrast. This CT examination was performed using dose optimization techniques as appropriate, variously including the following: *Automated exposure control *Adjustment of mA and/or kV according to patient size (this includes techniques or standardized protocols for targeted exams where dose is matched to indication/reason for exam; i.e. extremities or head) *Use of iterative reconstruction technique Total exam dose length product: 709 mGy-cm FINDINGS: No intra or extra-axial fluid collection, hemorrhage, or mass. No ventriculomegaly. No midline shift or herniation. Basal cisterns are patent. [place]-white matter differentiation is maintained. No territorial encephalomalacia. No significant volume loss. There is no abnormal attenuation within the brain parenchyma. No calvarial fracture or soft tissue abnormality. The mastoid air cells and visualized portions of the paranasal sinuses are well aerated. CT/CT head/brain wo con IMPRESSION: 1. No acute intracranial pathology.
--- NOTE | ~2022-07-13 | US_ITS ---
EXAMINATION: US VENOUS ULTRASOUND WITH DOPPLER LOWER EXTREMITY, LEFT CLINICAL INFORMATION: Left lower extremity swelling. Pain. Question DVT COMPARISON: None TECHNIQUE: Ultrasound of the deep veins is performed from the hip to the calf with compression sonography and color and pulse Doppler assessment. Spectral analysis with color-flow imaging is performed. FINDINGS: There is normal venous compression and respiratory variation and augmented flow. The visualized common femoral vein, superficial femoral vein, profunda femoral vein, popliteal vein, and the trifurcation region shows no evidence of deep venous thrombosis. There is no significant popliteal fossa cyst. A couple prominent no morphologically normal-appearing left inguinal lymph nodes are noted with fatty vamsi and thin cortices, presumably reactive. These measure 0.8 and 1.4 cm in short axis dimensions. If the patient's symptoms persist, followup ultrasound in 5 days 7 days might be of value to exclude proximal propagation from a non-visualized calf vein. US/US venous duplex LE LT IMPRESSION: No DVT demonstrated in the left lower extremity.
--- NOTE | ~2022-07-13 | XR_ITS ---
EXAMINATION: XR CHEST CLINICAL INFORMATION: Difficulty breathing. COMPARISON: 07/13/2022. TECHNIQUE: Frontal view of the chest was obtained. FINDINGS: Lungs are clear. No consolidation, pneumothorax, or pleural effusion. Cardiac and mediastinal contours are normal. Pulmonary vasculature is unremarkable. Trachea is midline. Osseous structures are unremarkable. Contrast is present in the splenic flexure. XR/XR chest 1V IMPRESSION: No acute cardiopulmonary findings.
[2022-07-13 18:50] VITALS: BP 161/89; PULSE 104; RESP 28; TEMP 36.1; O2SAT 94; BMI 39.1
--- NOTE | 2022-07-13 19:01 | ECG_ITS ---
Test Reason : SOB Blood Pressure : / mmHG Vent. Rate : 103 BPM Atrial Rate : 103 BPM P-R Int : 130 ms QRS Dur : 104 ms QT Int : 360 ms P-R-T Axes : 044 039 029 degrees QTc Int : 471 ms Sinus tachycardia Otherwise normal ECG When compared with ECG of 12-JUL-2022 22:50, Heart rate has increased Referred By: Amy Hidalgo Electronically Signed By:IVETH ELLIOTT
[2022-07-13 19:30] VITALS: BP 149/92; PULSE 101; RESP 27; O2SAT 97
--- NOTE | 2022-07-13 19:33 | PC.NURSE ---
Assumed care of pt at 1900. Pt c/o chest pain with dyspnea and L leg pain. Pt states she was here yesterday.
--- NOTE | 2022-07-13 20:04 | PC.NURSE ---
This RN assisted MD Berto in ultrasound-guided peripheral IV placement. 18 to pt.'s R AC placed with good blood return. Labs collected and sent as ordered
[2022-07-13 20:08] LABS: MANUAL DIFF FLAG NO
[2022-07-13 20:10] LABS: COVID-19 Test Negative (Negative)
[2022-07-13] MEDS: Magnesium Sulfate/H2O 2 GM/50 ML PIGGYBACK IV (20:11)
[2022-07-13] MEDS: guaiFEN/Codeine SF 200/20/10ML 10 ML LIQUID PO (20:14)
[2022-07-13] MEDS: 0.9 % Sodium Chloride 1,000 ML 999 ML IVCONT ×2 (20:15→21:53)
[2022-07-13] MEDS: methylPREDNISolone Sod Succ 125 MG/2 ML VIAL IVPUSH (20:15)
[2022-07-13 20:16] LABS: Basophils Percent Auto 0.3 % (0-2); Eosinophils Absolute Auto 0.1 X10*3/uL (0.0-0.4); Eosinophils Percent Auto 0.7 % (0-4); Hematocrit 39.3 % (37.0-47.0); Imm Gran Abs Auto 0.07 X10*3/uL (0.00-0.03); Imm Gran Pct Auto 0.5 % (0.0-0.4); Lymphocytes Absolute Auto 4.6 X10*3/uL (1.2-4.9); Lymphocytes Percent Auto 31.5 % (20-40); Mean Corpuscular HGB Conc 33.1 g/dl (31.0-35.0); Mean Corpuscular Hemoglobin 26.8 pg (27.0-33.0); Mean Platelet Volume 9.5 fL (9.4-12.3); Monocytes Percent Auto 6.6 % (2-11); Neutrophils Absolute Auto 8.9 x10*3/uL (2.0-8.3); Neutrophils Percent Auto 60.4 % (45-73); Platelet Count 311 X10*3/uL (160-400); Red Blood Count 4.85 X10*6/uL (4.20-5.50); Red Cell Distribution Width 14.5 % (11.0-16.0); White Blood Count 14.7 X10*3/uL (4.8-10.8)
[2022-07-13 20:29] LABS: Lactic Acid 1.8 mmol/L (0.5-2.0)
--- NOTE | 2022-07-13 20:29 | ED.ASTHMA ---
HPI - Asthma General Chief Complaint: Dyspnea Stated Complaint: asthma attack Time Seen by Provider: 07/13/22 18:57 Source: patient and family Mode of arrival: ambulatory Limitations: language barrier (Malay-speaking) History of Present Illness HPI Narrative: 46-year-old female with a past medical history of asthma, diabetes, hyperlipidemia, hypertension, vitamin-D deficiency, migraine headaches who is presenting to the ED with complaints of dry cough with shortness of breath/wheezing for the past 4 days worse today. She reports that she was seen here yesterday for the same complaint and was discharged home and reports that she does not feel like she can go home today. She reports she is taking her albuterol inhaler and nebulizers at home no symptomatic relief. She also reports lower extremity calf pain. She reports she was hospitalized multiple times in the past for asthma and once she was intubated. She denies any fevers, chills, dizziness, headaches, neck pain/symptoms, trouble swallowing, dyspnea on exertion, orthopnea, palpitations, paresthesias, nausea/vomiting/diarrhea constipation, black or bloody stools, recent travel or sick contacts or any other symptoms complaints or concerns at this time. MD complaint: asthma attack , shortness of breath and wheezing Onset (ago): day(s) (4) Severity: severe and worse than usual Context: allergen exposure Associated symptoms: dry cough, hemoptysis and leg edema Asthma History: childhood onset, history of frequent attacks, history of prior ED visit, previously intubated and followed by specialist Treatments Prior to Arrival: inhaled bronchodilator Related Data Current Asthma Therapy: inhaled bronchodilator and recent oral steroid Home Medications Medication Instructions Recorded Confirmed amlodipine 10 mg tablet 10 mg PO DAILY 12/12/20 05/02/22 telmisartan 80 1 tab PO DAILY 12/12/20 05/02/22 mg-hydrochlorothiazide 25 mg tablet empagliflozin 10 mg tablet 10 mg PO DAILY 09/23/21 05/02/22 (Jardiance) montelukast 10 mg tablet 10 mg PO DAILY 11/26/21 11/26/21 Previous Rx's Medication Instructions Recorded blood sugar diagnostic (Contour #100 ea 12/13/20 Next Test Strips) albuterol sulfate 90 mcg/actuation 1 inh inhalation QID PRN shortness 12/22/20 aerosol inhaler of breath or wheezing #8.5 grams nebulizers (AeroEclipse II #1 ea 12/22/20 Nebulizer) albuterol sulfate 0.63 mg/3 mL 0.63 mg (3 mL) inhalation QID PRN 12/31/20 solution for nebulization shortness of breath or wheezing #75 mL nebulizers (Compact Compressor #1 ea 12/31/20 Nebulizer) rosuvastatin 40 mg tablet 40 mg PO BEDTIME 90 days #90 tabs 03/13/21 cetirizine 10 mg tablet (Zyrtec) 10 mg PO DAILY #14 tabs 06/29/21 fluticasone propionate 50 1 spray intranasal BID #16 grams 06/29/21 mcg/actuation nasal spray,suspension (Flonase Allergy Relief) blood-glucose meter (FreeStyle #1 ea 07/19/21 Lite Meter kit) lancets 28 gauge (FreeStyle #200 ea 07/19/21 Lancets) blood sugar diagnostic (FreeStyle 1 strip miscellaneous .COMPLEX 10/07/21 Lite Strips) #200 strips vjfhjkrztn-wymgctvgvpenp-ergiyorc 1 cap PO Q4-6H PRN pain #14 caps 01/18/22 50 mg-300 mg-40 mg capsule (Fioricet) cefuroxime axetil 250 mg tablet 250 mg PO BID 7 days #14 tabs 01/18/22 blood-glucose transmitter (Dexcom 1 ea miscellaneous DIRECTED 90 02/27/22 G6 Transmitter device) days #1 cap insulin lispro-aabc 100 unit/mL See Rx Instructions subcut DAILY 02/28/22 subcutaneous solution (Lyumjev 90 days #140 mL U-100 Insulin) insulin pump cart,cont inf,BT #15 ea 02/28/22 (Omnipod Dash Pods (Gen 4) subcutaneous cartridge) fluticasone furoate 200 1 inh inhalation DAILY 30 days #1 03/05/22 mcg-vilanterol 25 mcg/dose ea inhalation powder (Breo Ellipta) dulaglutide 1.5 mg/0.5 mL 1.5 mg (0.5 mL) subcut QWEEK #2 mL 05/27/22 subcutaneous pen injector (Trulicity) Dexcom G6 Sensor (blood-glucose 1 ea topical DAILY 30 days #3 ea 07/04/22 sensor) prednisone 20 mg tablet 60 mg PO DAILY 4 days #12 tabs 07/13/22 Allergies Allergy/AdvReac Type Severity Reaction Status Date / Time canagliflozin [Invokana] Allergy Unknown rash Verified 07/13/22 18:50 liraglutide Allergy Unknown rash Verified 07/12/22 23:42 animals Allergy Unknown rash Uncoded 07/12/22 23:42 Pt states no known food Allergy Unknown Unknown Uncoded 07/12/22 23:42 allerg Review of Systems Review of Systems: Constitutional : denies med noncompliance, no history of PE or DVT, denies recent travel, No Fever, No Chills ENT/Mouth : No Hoarseness, No sore throat, No Rhinorrhea, No Nasal congestion, No Sinus Pressure, No Ear Pain, No stridor, Eyes: No Redness, No Discharge, No Vision Changes Cardiovascular : + Chest Pain, + SOB, No Dyspnea on Exertion, + Edema, no pleurisy, Respiratory : + Cough, + wheezing, No Sputum, no stridor, no hemoptysis, Gastrointestinal : No Nausea, No Vomiting, No Diarrhea, No abdominal Pain Genitourinary : No Dysuria, No Hematuria Musculoskeletal : No joint pain/swelling, No Myalgias Extremities: no extremity swelling /pain Skin : No rash, no itching, no swelling Neuro : No Weakness, No Numbness, No Headache, No Dizziness, No Paresthesias Psych : No anxiety, depression Heme/Lymph: No Bruising, No Bleeding Endocrine : No Polyuria, No Polydipsia Yes all other systems are reviewed and are negative PMFSH Past Medical History Attestation statement: The following information was validated with the patient. 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 Obesity due to excess calories Vitamin D deficiency Surgical History History of surgical procedure on mouth Hx of ectopic Family History Family History Father Diabetes mellitus Mother Diabetes mellitus Ovarian cancer Social History Social History Household Members: Family Alcohol intake: never Patient Tobacco Use Status: Never used Tobacco Advance Directives: No Advance Directives Information Provided: No Physical Exam Vital Signs: Vital Signs: Last Vital Signs Temp 97.9 F 07/13/22 20:41 Pulse 100 07/13/22 20:41 Resp 20 07/13/22 20:41 BP 147/93 H 07/13/22 20:41 Pulse Ox 99 07/13/22 20:41 O2 Del Method 07/13/22 20:41 O2 Flow Rate 2 07/13/22 20:41 BMI result Body Mass Index 39.1 vital signs have been reviewed as normal and appeared to be correct. Blood pressure 161/89. Heart rate 104. Respiration rate 28. Temperature normal. Oxygen saturation normal. Appearance: Alert. Oriented X3. Patient in acute respiratory distress otherwise no other acute distress. Head: Normal external exam. Normocephalic. Atraumatic. Eyes: PERRLA. EOMI. Conjunctiva and sclera normal. Eyelids normal. ENT: EAC normal. TM's Normal. Pharynx normal. Uvula midline. Moist mucous membranes. No lesions/ulcerations or masses noted on the tongue. Normal voice. No trismus noted. No drooling noted. No muffled voice noted. Neck: Normal inspection. Neck supple. FROM. No adenopathy. Thyroid Normal. No tracheal deviation noted. No crepitus is noted. No meningeal signs. No neck mass noted. No signs of trauma noted. CVS: Normal heart rate and rhythm. Heart sound normal. Pulses normal throughout. No murmurs/rales/gallops. Respiratory: Patient with acute respiratory distress with decreased breath sounds and inspiratory and expiratory wheezing throughout. No rales/rhonchi noted. She reports pain with breathing. She has associated muscle usage noted and tracheal tugging. Along with abdominal retractions. No signs of trauma. Not consistent with flail chest. No crepitus is noted. Abdomen: Soft and nontender. Nondistended. No guarding. No rigidity. Bowel sounds normal in all 4 quadrants. No distention noted. No organomegaly noted. No visible injury noted. No rebound tenderness. Back: Full range of motion noted. Nontender. No signs of trauma. Patient neuro intact bilaterally and distally on all 4 extremities. Patient's reflexes intact bilaterally and distally on all 4 extremities. No rashes/lesion/induration/fluctuance or signs of infection noted. Skin: Skin warm and dry. Normal skin color. Normal skin turgor. No rashes/lesions/lacerations noted. Extremities: Patient with left lower extremity edema and left calf tenderness. No right lower extremity more calf tenderness noted. Extremities exhibit normal range of motion and nontender. Neuro: Oriented X 3. No motor deficit. No sensory deficit. Reflexes normal. Normal steady gait. No focal neuro deficits noted. CN's II-XII intact bilaterally? Vascular: + radial pulses/+ 2 distal pedal pulses/+2 dorsalis pedis b/l. Normal cap refill. No cyanosis noted to upper extremity nails and lower extremity toes nails. Course Course Course Narrative: 19pm - 46-year-old female with a past medical history of asthma, diabetes, hyperlipidemia, hypertension, vitamin-D deficiency, migraine headaches who is presenting to the ED with complaints of dry cough with shortness of breath/wheezing for the past 4 days worse today. She reports that she was seen here yesterday for the same complaint and was discharged home and reports that she does not feel like she can go home today. She reports she is taking her albuterol inhaler and nebulizers at home no symptomatic relief. She also reports lower extremity calf pain. She reports she was hospitalized multiple times in the past for asthma and once she was intubated. Plan: Labs, EKG, chest x-ray, continuous cardiac monitoring, blood cultures, lactic acid, venous duplex ultrasound of left lower extremity. Provide a L IV fluids, breathing treatment, 1 g of Rocephin, 10 mL of Robitussin with codeine, 2 g of magnesium and 125 mg of Solu-Medrol and re-evaluate. Reevaluation(s) Reevaluation #1: - labs return [place] [address]. Random glucose 206. BUN 7. Otherwise all other labs are within normal limits. Serum quant negative for . Patient negative for COVID. - patient's chest x-ray yesterday was negative for all processes. - therefore at this time will plan to admit for asthma exacerbation/bronchospasm. Dr. Gates accepted admission at this time. - left lower extremity ultrasound ordered. Time: 20:38 [facility] - Asthma Medical Records Attestation: I reviewed the patient's medical records. Lab Data Attestation: I reviewed the patient's lab results. Result diagrams: 07/13/22 20:00 07/13/22 20:00 Labs: Lab Results 07/13/22 07/13/22 07/13/22 Range/Units 19:38 20:00 20:00 WBC 14.7 H (4.8-10.8) X10*3/uL RBC 4.85 (4.20-5.50) X10*6/uL Hgb 13.0 (12.0-16.0) g/dl Hct 39.3 (37.0-47.0) % MCV 81.0 (80.0-98.0) fL MCH 26.8 L (27.0-33.0) pg MCHC 33.1 (31.0-35.0) g/dl RDW 14.5 (11.0-16.0) % Plt Count 311 (160-400) X10*3/uL MPV 9.5 (9.4-12.3) fL Immature Gran % (Auto) 0.5 H (0.0-0.4) % Neut % (Auto) 60.4 (45-73) % Lymph % (Auto) 31.5 (20-40) % [place] % (Auto) 6.6 (2-11) % Eos % (Auto) 0.7 (0-4) % Baso % (Auto) 0.3 (0-2) % Lymph # (Auto) 4.6 (1.2-4.9) X10*3/uL [place] # (Auto) 1.0 (0.1-1.2) X10*3/uL Eos # (Auto) 0.1 (0.0-0.4) X10*3/uL Baso # (Auto) 0.0 (0.0-0.2) X10*3/uL Abs Immat Gran (auto) 0.07 H (0.00-0.03) X10*3/uL Absolute Neuts (auto) 8.9 H (2.0-8.3) x10*3/uL Absolute Nucleated RBC 0.000 (0.0-0.012) X10*3/uL Nucleated RBC % (auto) 0.0 (0.0-0.2) /100WBC PT 10.5 (10.0-13.1) SEC INR 0.9 (0.9-1.1) Sodium (135-145) mmol/L Potassium (3.3-5.1) mmol/L Chloride (96-108) mmol/L Carbon Dioxide (22-29) mmol/L Anion Gap (12-20) BUN (9-16) mg/dL Creatinine (0.5-1.4) mg/dL Estim Creat Clear Calc Estimated GFR Random Glucose (60-115) mg/dL Lactic Acid (0.5-2.0) mmol/L Calcium (8.4-10.2) mg/dL Magnesium (1.6-2.6) mg/dL Total Bilirubin (0.0-1.0) mg/dL AST (5-31) U/L ALT (0-31) U/L Alkaline Phosphatase (39-117) U/L Troponin I High Sens (<3.5-17.0) ng/L B-Natriuretic Peptide (<100) pg/mL Total Protein (6.5-8.0) g/dL Albumin (3.5-5.0) g/dL Beta HCG, Quant mIU/mL COVID-19 (DANK) Negative (Negative) COVID-19 Clin Com See Note 07/13/22 07/13/22 07/13/22 Range/Units 20:00 20:00 20:00 WBC (4.8-10.8) X10*3/uL RBC (4.20-5.50) X10*6/uL Hgb (12.0-16.0) g/dl Hct (37.0-47.0) % MCV (80.0-98.0) fL MCH (27.0-33.0) pg MCHC (31.0-35.0) g/dl RDW (11.0-16.0) % Plt Count (160-400) X10*3/uL MPV (9.4-12.3) fL Immature Gran % (Auto) (0.0-0.4) % Neut % (Auto) (45-73) % Lymph % (Auto) (20-40) % [place] % (Auto) (2-11) % Eos % (Auto) (0-4) % Baso % (Auto) (0-2) % Lymph # (Auto) (1.2-4.9) X10*3/uL [place] # (Auto) (0.1-1.2) X10*3/uL Eos # (Auto) (0.0-0.4) X10*3/uL Baso # (Auto) (0.0-0.2) X10*3/uL Abs Immat Gran (auto) (0.00-0.03) X10*3/uL Absolute Neuts (auto) (2.0-8.3) x10*3/uL Absolute Nucleated RBC (0.0-0.012) X10*3/uL Nucleated RBC % (auto) (0.0-0.2) /100WBC PT (10.0-13.1) SEC INR (0.9-1.1) Sodium 141 (135-145) mmol/L Potassium 4.2 (3.3-5.1) mmol/L Chloride 104 (96-108) mmol/L Carbon Dioxide 27 (22-29) mmol/L Anion Gap 14 (12-20) BUN 7 L (9-16) mg/dL Creatinine 0.73 (0.5-1.4) mg/dL Estim Creat Clear Calc 122.4 Estimated GFR > 60 Random Glucose 206 H (60-115) mg/dL Lactic Acid 1.8 (0.5-2.0) mmol/L Calcium 9.2 (8.4-10.2) mg/dL Magnesium 2.1 (1.6-2.6) mg/dL Total Bilirubin 0.5 (0.0-1.0) mg/dL AST 12 (5-31) U/L ALT 22 (0-31) U/L Alkaline Phosphatase 100 (39-117) U/L Troponin I High Sens < 3.5 (<3.5-17.0) ng/L B-Natriuretic Peptide 47 (<100) pg/mL Total Protein 7.2 (6.5-8.0) g/dL Albumin 4.1 (3.5-5.0) g/dL Beta HCG, Quant < 2 mIU/mL COVID-19 (DANK) (Negative) COVID-19 Clin Com ECG Data Attestation: I personally reviewed and interpreted this ECG as follows: ECG interpretation date: 07/13/22 ECG interpretation time: 22:50 Interpretation: Normal sinus rhythm with ventricular rate of 95 with a normal WI interval normal QRS duration normal QT/QTC interval no acute ischemic change are noted. Similar compared to prior EKG 01/16/2022. Critical Care Time Critical Care Time Critical Care Time: Yes Total Critical Care Time: 60 Attestation: I personally attest to this time spent taking care of the patient Discharge Plan Discharge Clinical Impression: Asthma exacerbation, Acute bronchospasm Patient Disposition: Admitted As Inpatient
[2022-07-13 20:33] LABS: Alanine Aminotransferase 22 U/L (0-31); Albumin Level 4.1 g/dL (3.5-5.0); Alkaline Phosphatase 100 U/L (39-117); Anion Gap 14 (12-20); Aspartate Amino Transferase 12 U/L (5-31); Bilirubin Total 0.5 mg/dL (0.0-1.0); Blood Urea Nitrogen 7 mg/dL (9-16); Calcium 9.2 mg/dL (8.4-10.2); Carbon Dioxide 27 mmol/L (22-29); Chloride 104 mmol/L (96-108); Creatinine Clr Calc Pharmacy 122.4; Estimated Glomerular Filt Rate > 60; Glucose Random 206 mg/dL (60-115); Magnesium 2.1 mg/dL (1.6-2.6); Potassium 4.2 mmol/L (3.3-5.1); Sodium 141 mmol/L (135-145); Total Protein 7.2 g/dL (6.5-8.0)
[2022-07-13 20:38] LABS: INTERNATIONAL NORM RATIO 0.9 (0.9-1.1); Prothrombin Time 10.5 SEC (10.0-13.1)
[2022-07-13 20:40] LABS: HCG Quantitative < 2 mIU/mL
[2022-07-13 20:41] VITALS: BP 147/93; PULSE 100; RESP 20; TEMP 36.6; O2SAT 99
[2022-07-13 20:41] LABS: Troponin-I High Sensitivity < 3.5 ng/L (<3.5-17.0)
[2022-07-13 20:52] LABS: B Type Natriuretic Peptide 47 pg/mL (<100)
[2022-07-13] MEDS: cefTRIAXone sodium 1 GM in 0.9 % Sodium Chloride 50 ML IV (21:15)
[2022-07-13 21:26] VITALS: BP 208/100; PULSE 99; RESP 16; O2SAT 99
[2022-07-13 21:54] VITALS: BP 130/65
[2022-07-13] MEDS: Enoxaparin Sodium 40 MG/0.4 ML SYRINGE SUBCUT (21:55)
--- NOTE | 2022-07-13 21:55 | PC.NURSE ---
IVP Hydralazine held at this time d/t BP 130/65
[2022-07-14] VITALS (12 sets, daily range): BP systolic 101–145; BP diastolic 56–81; PULSE 76–90; RESP 15–23; TEMP 36.1–36.9; O2SAT 93–99; BMI 37.5
--- NOTE | 2022-07-14 01:50 | PC.NURSE ---
Pt sleeping. VS assessed. Will continue to monitor.
[2022-07-14 04:33] LABS: MANUAL DIFF FLAG NO
[2022-07-14 04:34] LABS: Basophils Percent Auto 0.2 % (0-2); Hematocrit 36.5 % (37.0-47.0); Imm Gran Abs Auto 0.07 X10*3/uL (0.00-0.03); Imm Gran Pct Auto 0.6 % (0.0-0.4); Lymphocytes Absolute Auto 1.5 X10*3/uL (1.2-4.9); Lymphocytes Percent Auto 12.1 % (20-40); Mean Corpuscular HGB Conc 32.9 g/dl (31.0-35.0); Mean Corpuscular Hemoglobin 26.5 pg (27.0-33.0); Mean Corpuscular Volume 80.8 fL (80.0-98.0); Mean Platelet Volume 9.6 fL (9.4-12.3); Monocytes Absolute Auto 0.1 X10*3/uL (0.1-1.2); Monocytes Percent Auto 1.1 % (2-11); Neutrophils Absolute Auto 10.9 x10*3/uL (2.0-8.3); Platelet Count 292 X10*3/uL (160-400); Red Blood Count 4.52 X10*6/uL (4.20-5.50); Red Cell Distribution Width 14.6 % (11.0-16.0); White Blood Count 12.7 X10*3/uL (4.8-10.8)
[2022-07-14 05:10] LABS: Anion Gap 13 (12-20); Blood Urea Nitrogen 8 mg/dL (9-16); Carbon Dioxide 21 mmol/L (22-29); Chloride 107 mmol/L (96-108); Creatinine Clr Calc Pharmacy 159.6; Estimated Glomerular Filt Rate > 60; Glucose Random 251 mg/dL (60-115); Potassium 4.3 mmol/L (3.3-5.1); Sodium 137 mmol/L (135-145)
--- NOTE | 2022-07-14 06:22 | P.HPHOSP_ITS ---
History of Present Illness Date of Service: 07/13/22 Chief Complaint: shortness of breath 46-year-old female with past medical history of asthma, HTN, diabetes, HLD who presents to the hospital with complaints of shortness of breath cough and Wheezing for the past 5 days. patient reports that she has had difficulty breathing, she went to the ED yesterday, received breathing treatment, and was sent home on prednisone. Patient returns today reports no improvement her symptoms, worsening shortness of breath. she reports a headache, she denies any chest pain, no palpitations, no abdominal pain nausea or vomiting, no diarrhea constipation, no urinary symptoms. She reports a left- leg weakness that is been going on since , reports that she can not even lift her leg due to the weakness, denies any numbness or tingling, no back pain. On arrival to the ED patient hemodynamically stable with no significant abnormal vitals except for tachycardia of 104 and tachypnea of 28, blood pressure elevated Labs are significant for WBC count of 614.7, labs otherwise unremarkable COVID-19 negative Chest x-ray shows no evidence of pneumonia venous duplex of left leg shows no DVT, head CT negative with no acute intracranial pathology patient started on IV Solu-Medrol will be admitted for further management Review of Systems Review of Systems: Yes all other systems are reviewed and are negative [facility] [place] Medical History Asthma Diabetes Diabetes type 2, uncontrolled Diabetic 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 with type 2 diabetes mellitus Ectopic Hyperlipidemia Hypertension 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 Obesity due to excess calories Vitamin D deficiency Family History Father Diabetes mellitus Mother Diabetes mellitus Ovarian cancer Surgical History History of surgical procedure on mouth Hx of ectopic Social History Household Members: Family Alcohol intake: never Patient Tobacco Use Status: Never used Tobacco Advance Directives: No Advance Directives Information Provided: No Meds Allergies Allergy/AdvReac Type Severity Reaction Status Date / Time canagliflozin [Invokana] Allergy Unknown rash Verified 07/13/22 18:50 liraglutide Allergy Unknown rash Verified 07/12/22 23:42 animals Allergy Unknown rash Uncoded 07/12/22 23:42 Pt states no known food Allergy Unknown Unknown Uncoded 07/12/22 23:42 allerg Active Medications: Current Medications Acetaminophen (Acetaminophen 325 Mg Tablet) 650 mg PO Q6H PRN PRN Reason: Pain, Mild (Pain Scale 1-3) Albuterol/Ipratropium (Albuterol/Iprat 2.5/0.5mg 3 Ml Ampul.Neb) 3 ml INHALE Q4H PRN PRN Reason: Shortness of Breath/Wheezing Albuterol/Ipratropium (Albuterol/Iprat 2.5/0.5mg 3 Ml Ampul.Neb) 3 ml INHALE RQ4H WHILE AWAKE [facility] Docusate Sodium (Docusate Sodium 100 Mg Capsule) 100 mg PO DAILY PRN PRN Reason: Constipation Enoxaparin Sodium (Enoxaparin Sodium 40 Mg/0.4 Ml Syringe) 40 mg SUBCUT Q24H [facility] Last Admin: 07/13/22 21:55 Dose: 40 mg Melatonin (Melatonin 3 Mg Tablet) 6 mg PO BEDTIME PRN PRN Reason: Insomnia Methylprednisolone Sodium Succinate (Methylprednisolone Sod Succ 40 Mg/Ml Vial) 40 mg IVPUSH Q12H [facility] Ondansetron HCl (Ondansetron Hcl 4 Mg/2 Ml Vial) 4 mg IVPUSH Q8H PRN PRN Reason: Nausea and Vomiting Pharmacy Consult (Consult Rx Perform Med Rec) 1 each MISCELLANE ONCE PRN PRN Reason: Consult order Sodium Chloride (0.9 % Sodium Chloride Flush 3 Ml Syringe) 3 ml IVFLUSH QSHIFT [facility] Last Admin: 07/13/22 23:38 Dose: Not Given Home Medications Medication Instructions Recorded Confirmed Last Taken Type amlodipine 10 mg tablet 10 mg PO DAILY 12/12/20 07/14/22 1 Day Ago History ~12/30/20 telmisartan 80 1 tab PO DAILY 12/12/20 07/14/22 Unknown History mg-hydrochlorothiazide 25 mg tablet empagliflozin 10 mg tablet 10 mg PO DAILY 09/23/21 07/14/22 Unknown History (Jardiance) montelukast 10 mg tablet 10 mg PO DAILY 11/26/21 07/14/22 Unknown History Physical Exam Vital Signs and Narrative: Vital Signs: Last Vital Signs Temp 97.9 F 07/13/22 20:41 Pulse 89 07/14/22 05:54 Resp 16 07/14/22 05:54 BP 124/78 07/14/22 05:54 Pulse Ox 95 07/14/22 05:54 O2 Del Method 07/14/22 05:54 O2 Flow Rate 2 07/14/22 05:54 BMI result Body Mass Index 39.1 Const: General: cooperative and no acute distress Orientation/consciousness: patient oriented x3 Eyes: General: appearance normal, both eyes and all related structures Pupils: Equal, round and reactive pupils present Resp: Other: expiratory wheezing Effort & Inspection: normal respiratory effort Cardio: Rate: regular rate Rhythm: regular rhythm GI: Palpation (GI): Soft to palpation Auscultation: normal bowel sounds Skin: General skin exam: no rashes or lesions noted Neuro: General: patient oriented x3 Cranial nerves: Yes Equal, round and reactive pupils present Cognition (Neuro): normal cognition Extrem: Other: left leg strength 4/5, right 5/5 cranial nerves 2-12 intact General: Yes normal to inspection and Yes no pedal edema Results Labs CBC and Chem 7: 07/14/22 04:22 07/14/22 04:22 Labs: Laboratory Results - last 24 hr 07/13/22 07/13/22 07/13/22 19:38 20:00 20:00 MCV 81.0 MCH 26.8 L MCHC 33.1 RDW 14.5 Plt Count 311 MPV 9.5 Immature Gran % (Auto) 0.5 H Neut % (Auto) 60.4 Lymph % (Auto) 31.5 [place] % (Auto) 6.6 Eos % (Auto) 0.7 Baso % (Auto) 0.3 Lymph # (Auto) 4.6 [place] # (Auto) 1.0 Eos # (Auto) 0.1 Baso # (Auto) 0.0 Abs Immat Gran (auto) 0.07 H Absolute Neuts (auto) 8.9 H Absolute Nucleated RBC 0.000 Nucleated RBC % (auto) 0.0 PT 10.5 INR 0.9 Anion Gap Estim Creat Clear Calc Estimated GFR Random Glucose Lactic Acid Calcium Magnesium Total Bilirubin AST ALT Alkaline Phosphatase B-Natriuretic Peptide Total Protein Albumin Beta HCG, Quant COVID-19 (DANK) Negative COVID-19 Clin Com See Note 07/13/22 07/13/2222 20:00 20:00 20:00 MCV MCH MCHC RDW Plt Count MPV Immature Gran % (Auto) Neut % (Auto) Lymph % (Auto) [place] % (Auto) Eos % (Auto) Baso % (Auto) Lymph # (Auto) [place] # (Auto) Eos # (Auto) Baso # (Auto) Abs Immat Gran (auto) Absolute Neuts (auto) Absolute Nucleated RBC Nucleated RBC % (auto) PT INR Anion Gap 14 Estim Creat Clear Calc 122.4 Estimated GFR > 60 Random Glucose 206 H Lactic Acid 1.8 Calcium 9.2 Magnesium 2.1 Total Bilirubin 0.5 AST 12 ALT 22 Alkaline Phosphatase 100 B-Natriuretic Peptide 47 Total Protein 7.2 Albumin 4.1 Beta HCG, Quant < 2 COVID-19 (DANK) COVID-19 [employer] 07/14/22 07/14/22 04:22 04:22 MCV 80.8 MCH 26.5 L MCHC 32.9 RDW 14.6 Plt Count 292 MPV 9.6 Immature Gran % (Auto) 0.6 H Neut % (Auto) 86.0 H Lymph % (Auto) 12.1 L [place] % (Auto) 1.1 L Eos % (Auto) 0.0 Baso % (Auto) 0.2 Lymph # (Auto) 1.5 [place] # (Auto) 0.1 Eos # (Auto) 0.0 Baso # (Auto) 0.0 Abs Immat Gran (auto) 0.07 H Absolute Neuts (auto) 10.9 H Absolute Nucleated RBC 0.000 Nucleated RBC % (auto) 0.0 PT INR Anion Gap 13 Estim Creat Clear Calc 159.6 Estimated GFR > 60 Random Glucose 251 H Lactic Acid Calcium 8.0 L D Magnesium Total Bilirubin AST ALT Alkaline Phosphatase B-Natriuretic Peptide Total Protein Albumin Beta HCG, Quant COVID-19 (DANK) COVID-19 Clin Com Imaging Radiologist's Impressions: Impressions Chest X-Ray 07/13/22 20:37 IMPRESSION: No acute cardiopulmonary findings. Head CT 07/13/22 21:53 IMPRESSION: 1. No acute intracranial pathology. Venous Duplex 07/13/22 22:10 IMPRESSION: No DVT demonstrated in the left lower extremity. Assessment and Plan (1) Asthma exacerbation: Status: Acute (2) Left leg weakness: Status: Acute Plan 46-year-old female with past medical history of asthma presents to the hospital shortness of breath and wheezing will be admitted for asthma exacerbation # acute asthma exacerbation - wheezing, short of breath, failed outpatient therapy - will treat with IV Solu-Medrol, DuoNeb - monitor respiratory status # left leg weakness - mild weakness on exam - head CT negative, DVT negative - know back pain, no sciatic characteristic - will obtain PT # diabetes - continue home insulin - will add low-dose sliding scale insulin - diabetic diet DVT prophylaxis: Lovenox given patient's failed outpatient therapy for asthma exacerbation, patient will require minimum tonight hospital stay fo Quality Stroke Does the patient have a stroke diagnosis?: No VTE Prior VTE?: No VTE Risk Level:: Medical - moderate - high VTE Device Contraindication: Treatment Not Indicated VTE Drug Contraindication: N/A - Med Ordered
[2022-07-14] MEDS: methylPREDNISolone Sod Succ 40 MG/ML VIAL IVPUSH (06:23)
[2022-07-14 07:33] LABS: Glucose, Whole Blood 181 mg/dL (60-115)
--- NOTE | 2022-07-14 07:39 | PHA.MEDREC ---
Pharmacy Consult ? Medication Reconciliation Pharmacy has completed the medication reconciliation.
[2022-07-14] MEDS: Albuterol/Iprat 2.5/0.5MG 3 ML AMPUL.NEB INHALE ×3 (07:53→15:17)
--- NOTE | 2022-07-14 08:27 | PM.EVENT ---
Event Note Date of Service: 07/14/22 Event Note: 46-year-old female with past medical history of asthma presents to the hospital shortness of breath and wheezing will be admitted for asthma exacerbation Acute asthma exacerbation. Improving No longer short of breath, very mild expiratory wheeze Continue IV Solu-Medrol and DuoNeb Supplemental oxygen as needed Left leg weakness. Resolved Head CT and venous Doppler negative Leukocytosis No sepsis, likely from steroids Diabetes type 1 Sliding scale, ADA diet Uses insulin pump, does not have here ?DVT prophylaxis:? Lovenox Attending Dr. New Continue hospitalization for treatment of acute asthma exacerbation necessitating IV steroids and regularly scheduled updraft treatments
[2022-07-14 08:42] LABS: Glucose, Whole Blood 227 mg/dL (60-115)
[2022-07-14] MEDS: 0.9 % Sodium Chloride Flush 3 ML SYRINGE IVFLUSH ×2 (09:12→18:02)
[2022-07-14] MEDS: amLODIPine Besylate 10 MG TABLET PO (09:12)
[2022-07-14] MEDS: Insulin Lispro 100 UNIT/ML 3 ML VIAL SUBCUT (09:12)
[2022-07-14] MEDS: Valsartan 160 MG TABLET PO (09:13)
[2022-07-14] MEDS: hydroCHLOROthiazide 25 MG TABLET PO (09:13)
--- NOTE | 2022-07-14 10:38 | P.CDIC_ITS ---
CDI Concurrent Query Documentation Clarification: PHYSICIAN'S DOCUMENTATION REQUEST Date of Query: 07/14/22 1039 Patient Name: Vonnie Melchor Admit Date: 07/13/22 Dear Doctor, Please review the following and provide your response in the progress notes. Clinical Indicators: The diagnosis of asthma was documented in the record on 07/14/22. Additional clinical indicators from the record include: Risk Factors/Clinical Indicators/Treatments Per MD progress note 07/14/22: Acute asthma exacerbation.? Improving No longer short of breath, very mild expiratory wheeze Continue IV Solu-Medrol and DuoNeb Supplemental oxygen as needed Based on the above, please clarify in the Progress Notes further specificity regarding the type and acuity of the asthma: Type: * Mild intermittent - less than 2x/week * Mild persistent - more than 2x/week but not daily * Moderate persistent - daily and may restrict physical activity * Severe persistent - throughout the day with frequent attacks, limiting activities * Exercise induced * Other ? please specify * Unable to determine Use of terms such as suspected, likely, concern for, or probable (associated with a specific diagnosis that is being evaluated, monitored, or treated as if it exists) are acceptable and can be coded in the inpatient setting, when documented at the time of discharge. Thank you, Vonnie Rodgers RN Extension: [phone] Please use your independent medical judgment in providing your response. THIS QUERY IS PART OF THE PERMANENT MEDICAL RECORD Other Diagnosis: Mild persistent
[2022-07-14 11:36] LABS: Glucose, Whole Blood 210 mg/dL (60-115)
--- NOTE | 2022-07-14 13:40 | P.DS_ITS ---
DS: Providers Provider Date of Service: 07/14/22 Date of admission: 07/13/22 21:04 Primary care physician: Unknown Physician Attending physician on discharge: Miles New Discharging clinician: Dennise Montgomery DS: Diagnosis Discharge Diagnosis (1) Asthma exacerbation: Status: Acute (2) Left leg weakness: Status: Acute DS: Summary Hospital Course Hospital Course: History and physical as per admitting provider. 46-year-old female with past medical history of? asthma, HTN, diabetes, HLD who presents to the hospital with complaints of shortness of breath cough and ? Wheezing for the past 5 days. patient reports that she has had difficulty breathing, she went to the ED yesterday, received breathing treatment, and was sent home on prednisone.? Patient returns today reports no improvement her symptoms, worsening shortness of breath. ? she reports a headache, she denies any chest pain, no palpitations, no abdominal pain nausea or vomiting, no diarrhea constipation, no urinary symptoms.? She reports a left- leg weakness that is been going on since , reports that she can not even lift her leg due to the weakness, denies any numbness or tingling, no back pain. On arrival to the ED patient hemodynamically stable with no significant abnormal vitals except for tachycardia of 104 and tachypnea of 28, blood pressure elevated Labs are significant for? WBC count of 614.7, labs otherwise unremarkable COVID-19 negative Chest x-ray shows no evidence of pneumonia venous duplex of left leg shows no DVT, head CT negative with no acute intracranial pathology patient started on IV Solu-Medrol will be admitted for further management . Acute asthma exacerbation.? Resolved No longer short of breath, wheezing resolved Treated with IV Solu-Medrol and DuoNeb Home with 5 days of prednisone Left leg weakness.? Resolved Head CT and venous Doppler negative Leukocytosis No sepsis, likely from steroids Diabetes type 1 Continue insulin pump Time Spent with Patient Time attestation: Total time spent providing and/or coordinating discharge services: Discharge coordination time: Greater than 30 minutes Quality: Safe Use of Opioids Does Pt have an Active Cancer Diagnosis on the Problem List?: No Quality: Stroke Does the patient have a stroke diagnosis?: No Physical Exam Vital Signs: Vital Signs: Last Vital Signs Temp 97.4 F 07/14/22 11:51 Pulse 77 07/14/22 11:51 Resp 19 07/14/22 11:51 BP 122/72 07/14/22 11:51 Pulse Ox 95 07/14/22 11:51 O2 Del Method 07/14/22 11:51 O2 Flow Rate 2 07/14/22 05:54 BMI result Body Mass Index 37.5 Appearing in no acute distress head is normocephalic atraumatic eyes pupils are PERRLA sclera is anicteric mouth throat mucous membranes are intact and moist neck is supple no lymphadenopathy, no JVD noted lung sounds are clear to auscultation heart regular rate rhythm, clear S1, S2 positive bowel sounds, abdomen is soft, nontender neuro patient is alert x3, no focal deficits DS: Data Data Completed and Pending Labs on day of discharge: Laboratory Results - last 24 hr 07/13/22 07/13/22 07/13/22 19:38 20:00 20:00 WBC 14.7 H RBC 4.85 Hgb 13.0 Hct 39.3 MCV 81.0 MCH 26.8 L MCHC 33.1 RDW 14.5 Plt Count 311 MPV 9.5 Immature Gran % (Auto) 0.5 H Neut % (Auto) 60.4 Lymph % (Auto) 31.5 [place] % (Auto) 6.6 Eos % (Auto) 0.7 Baso % (Auto) 0.3 Lymph # (Auto) 4.6 [place] # (Auto) 1.0 Eos # (Auto) 0.1 Baso # (Auto) 0.0 Abs Immat Gran (auto) 0.07 H Absolute Neuts (auto) 8.9 H Absolute Nucleated RBC 0.000 Nucleated RBC % (auto) 0.0 PT 10.5 INR 0.9 Sodium Potassium Chloride Carbon Dioxide Anion Gap BUN Creatinine Estim Creat Clear Calc Estimated GFR POC Glucose Random Glucose Lactic Acid Calcium Magnesium Total Bilirubin AST ALT Alkaline Phosphatase Troponin I High Sens B-Natriuretic Peptide Total Protein Albumin Beta HCG, Quant COVID-19 (DANK) Negative COVID-19 Clin Com See Note 07/13/22 07/13/22 07/13/22 20:00 20:00 20:00 WBC RBC Hgb Hct MCV MCH MCHC RDW Plt Count MPV Immature Gran % (Auto) Neut % (Auto) Lymph % (Auto) [place] % (Auto) Eos % (Auto) Baso % (Auto) Lymph # (Auto) [place] # (Auto) Eos # (Auto) Baso # (Auto) Abs Immat Gran (auto) Absolute Neuts (auto) Absolute Nucleated RBC Nucleated RBC % (auto) PT INR Sodium 141 Potassium 4.2 Chloride 104 Carbon Dioxide 27 Anion Gap 14 BUN 7 L Creatinine 0.73 Estim Creat Clear Calc 122.4 Estimated GFR > 60 POC Glucose Random Glucose 206 H Lactic Acid 1.8 Calcium 9.2 Magnesium 2.1 Total Bilirubin 0.5 AST 12 ALT 22 Alkaline Phosphatase 100 Troponin I High Sens < 3.5 B-Natriuretic Peptide 47 Total Protein 7.2 Albumin 4.1 Beta HCG, Quant < 2 COVID-19 (DANK) COVID-19 [employer] 07/14/22 07/14/22 07/14/22 04:22 04:22 07:28 WBC 12.7 H RBC 4.52 Hgb 12.0 Hct 36.5 L MCV 80.8 MCH 26.5 L MCHC 32.9 RDW 14.6 Plt Count 292 MPV 9.6 Immature Gran % (Auto) 0.6 H Neut % (Auto) 86.0 H Lymph % (Auto) 12.1 L [place] % (Auto) 1.1 L Eos % (Auto) 0.0 Baso % (Auto) 0.2 Lymph # (Auto) 1.5 [place] # (Auto) 0.1 Eos # (Auto) 0.0 Baso # (Auto) 0.0 Abs Immat Gran (auto) 0.07 H Absolute Neuts (auto) 10.9 H Absolute Nucleated RBC 0.000 Nucleated RBC % (auto) 0.0 PT INR Sodium 137 Potassium 4.3 Chloride 107 Carbon Dioxide 21 L Anion Gap 13 BUN 8 L Creatinine 0.56 Estim Creat Clear Calc 159.6 Estimated GFR > 60 POC Glucose 181 H Random Glucose 251 H Lactic Acid Calcium 8.0 L D Magnesium Total Bilirubin AST ALT Alkaline Phosphatase Troponin I High Sens B-Natriuretic Peptide Total Protein Albumin Beta HCG, Quant COVID-19 (DANK) COVID-19 [employer] 07/14/22 07/14/22 08:37 11:32 WBC RBC Hgb Hct MCV MCH MCHC RDW Plt Count MPV Immature Gran % (Auto) Neut % (Auto) Lymph % (Auto) [place] % (Auto) Eos % (Auto) Baso % (Auto) Lymph # (Auto) [place] # (Auto) Eos # (Auto) Baso # (Auto) Abs Immat Gran (auto) Absolute Neuts (auto) Absolute Nucleated RBC Nucleated RBC % (auto) PT INR Sodium Potassium Chloride Carbon Dioxide Anion Gap BUN Creatinine Estim Creat Clear Calc Estimated GFR POC Glucose 227 H 210 H Random Glucose Lactic Acid Calcium Magnesium Total Bilirubin AST ALT Alkaline Phosphatase Troponin I High Sens B-Natriuretic Peptide Total Protein Albumin Beta HCG, Quant COVID-19 (DANK) COVID-19 Clin Com Discharge Plan Discharge Anticipated Discharge Date/Time: 07/14/22 13:37 Patient Disposition: Home, Self-Care Discharge Diagnosis: Asthma exacerbation Discharge Medications: New prednisone 10 mg tablet 40 mg PO DAILY Qty: 20 0RF Continued (DME) Contour Next Test Strips Strip See Rx Instructions .ROUTE .MEDSUPPLY Qty: 100 6RF Rx Instructions: 6 times a day FreeStyle Lite Strips Strip 1 strip miscellaneous .COMPLEX Qty: 200 11RF Rx Instructions: 1 strip miscellaneous five times a day; Dexcom G6 Transmitter Device 1 ea miscellaneous DIRECTED 90 Days Qty: 1 3RF Breo Ellipta 200-25 mcg/dose blister with device 1 inh inhalation DAILY 30 Days Qty: 1 6RF Trulicity 1.5 mg/0.5 mL pen injector 1.5 mg subcut QWEEK Qty: 2 5RF Dexcom G6 Sensor Device 1 ea topical DAILY 30 Days Qty: 3 11RF (DME) AeroEclipse II Nebulizer Misc See Rx Instructions .ROUTE .MEDSUPPLY Qty: 1 0RF Rx Instructions: As directed albuterol sulfate 90 mcg/actuation HFA aerosol inhaler 1 inh inhalation QID PRN (Reason: shortness of breath or wheezing) Qty: 8.5 0RF (DME) Compact Compressor Nebulizer Misc See Rx Instructions .ROUTE .MEDSUPPLY Qty: 1 0RF Rx Instructions: As directed cetirizine [Zyrtec] 10 mg tablet 10 mg PO DAILY Qty: 14 0RF amitriptyline 25 mg tablet 1 tab PO BEDTIME naproxen 500 mg tablet 1 tab PO BID (DME) blood-glucose meter [FreeStyle Lite Meter] Kit See Rx Instructions .ROUTE .MEDSUPPLY Qty: 1 0RF Rx Instructions: As directed (DME) lancets [FreeStyle Lancets] 28 gauge misc See Rx Instructions .ROUTE .MEDSUPPLY Qty: 200 1RF Rx Instructions: 5x/day montelukast 10 mg tablet 10 mg PO DAILY telmisartan-hydrochlorothiazid 80-25 mg tablet 1 tab PO DAILY amlodipine 10 mg tablet 10 mg PO DAILY rosuvastatin 40 mg tablet 40 mg PO BEDTIME 90 Days Qty: 90 2RF Jardiance 10 mg tablet 10 mg PO DAILY Lyumjev U-100 Insulin 100 unit/mL solution See Rx Instructions subcut DAILY 90 Days Qty: 140 3RF Rx Instructions: up to 150 mg/dl via pump subcut daily; (DME) Omnipod Dash Pods (Gen 4) Cartridge See Rx Instructions subcut Q3D Qty: 15 11RF Rx Instructions: As directed change every 2 day Discharge Orders: Discharge Order (Routine); Ordered 07/14/22 Ordered By: Dennise Montgomery Diet: Advance to usual diet Activity on Discharge: As tolerated Stand Alone Forms: Patient Portal Discharge page Care Plan Goals: Complete resolution of symptoms Health Concerns: Asthma exacerbation Plan of Treatment: Follow-up with her primary care provider as needed Take all medications as prescribed Assessment: See discharge summary
--- NOTE | 2022-07-14 14:40 | MHC.CM.PN ---
Addendum entered by Sheridan Man 07/14/22 14:57: HCP HAS BEEN COMPLETED, ORIGINAL AND 4 COPIES TO PATIENT, COPY UPLOADED TO [facility], AND COPY FILED IN CHART Original Note: PATIENT LIVES WITH FAMILY IS INDEPENDENT AT HOME/COMMUNITY, IS EMPLOYED NO DME OR HOME SERVICES COVID VAX'D X2 MRNA PCP: [facility] WILL TRANSPORT HCP WILL COMPLETE D/C PLAN: HOME SELF-CARE
--- NOTE | 2022-07-14 14:57 | MHC.CM.PN ---
PATIENT HAS BEEN MEDICALLY CLEARED FOR DISCHARGE TODAY; DISCHARGE DISPOSITION IS HOME SELF-CARE. FAMILY WILL TRANSPORT.
[2022-07-14] MEDS: diphenhydrAMINE HCL 50 MG/ML VIAL 25 MG IVPUSH (15:30)
--- NOTE | 2022-07-14 15:30 | MHC.CM.PN ---
HOME - SELF CARE RN AWARE OF PLAN
[2022-07-14 16:40] LABS: Glucose, Whole Blood 336 mg/dL (60-115)
--- NOTE | 2022-07-14 18:35 | PC.NURSE ---
no further issues with pt having a headache or redness to her face. Lungs remained dim t/o and sats 94-95% on room air
== END 2022-07-14 18:34 | disposition home or self-care (01) | DRG 141 ==
LOC: HO.ED 20:47 → HO.EDOVER 21:14 → HO.S3 07-14 07:29
PROVIDERS: Physician Assistant Medical; Admitting Provider Internal Medicine; Emergency Provider Internal Medicine; PCP Internal Medicine; Visit Provider Nurse Practitioner Acute Care
DX: J45.31 Mild persistent asthma with (acute) exacerbation (principal); E10.42 Type 1 diabetes mellitus with diabetic 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; I10 Essential (primary) hypertension; D72.829 Elevated white blood cell count, unspecified; E66.9 Obesity, unspecified; E78.5 Hyperlipidemia, unspecified; Z20.822 Contact with and (suspected) exposure to COVID-19; Z68.37 Body mass index [BMI] 37.0-37.9, adult; Z88.8 Allergy status to other drugs, medicaments and biological substances; Z79.51 Long term (current) use of inhaled steroids; Z79.52 Long term (current) use of systemic steroids; Z79.899 Other long term (current) drug therapy
CPT/HCPCS: 36415; 70450; 71045; 80048; 80053; 82947; 83605; 83735; 83880; 84484; 84702; 85025; 85610; 87040; 87635; 93005; 93971; 94640; 96365; 96375; 97161; 99285; J0696; J1200; J1650; J2920; J2930; J3475

== ENCOUNTER 2022-07-19 05:36 | Emergency (ER) | payer OTHER, SELFPAY ==
--- NOTE | ~2022-07-19 | XR_ITS ---
EXAMINATION: XR CHEST CLINICAL INFORMATION: Shortness of breath. COMPARISON: 07/13/2022 chest radiograph. TECHNIQUE: 2 views of the chest were obtained. FINDINGS: No significant abnormality is noted involving the heart, lungs, mediastinum, bony thorax or soft tissues. XR/XR chest 2V IMPRESSION: No acute cardiopulmonary process.
--- NOTE | 2022-07-19 05:56 | ECG_ITS ---
Test Reason : SOB Blood Pressure : / mmHG Vent. Rate : 085 BPM Atrial Rate : 085 BPM P-R Int : 136 ms QRS Dur : 104 ms QT Int : 378 ms P-R-T Axes : 072 063 045 degrees QTc Int : 449 ms Normal sinus rhythm Normal ECG When compared with ECG of 13-JUL-2022 19:54, Heart rate has decreased Referred By: Generic ED Physician Electronically Signed By:IVETH ELLIOTT
[2022-07-19 05:59] VITALS: BP 138/83; PULSE 84; RESP 26; TEMP 36.7; O2SAT 96; BMI 39.1
[2022-07-19 06:26] LABS: Hematocrit 43.5 % (37.0-47.0); Hemoglobin 14.2 g/dl (12.0-16.0); Mean Corpuscular HGB Conc 32.6 g/dl (31.0-35.0); Mean Corpuscular Hemoglobin 26.4 pg (27.0-33.0); Mean Platelet Volume 9.2 fL (9.4-12.3); Platelet Count 348 X10*3/uL (160-400); Red Blood Count 5.37 X10*6/uL (4.20-5.50); Red Cell Distribution Width 14.6 % (11.0-16.0); White Blood Count 12.6 X10*3/uL (4.8-10.8)
[2022-07-19 06:41] LABS: Alanine Aminotransferase 26 U/L (0-31); Albumin Level 4.1 g/dL (3.5-5.0); Alkaline Phosphatase 97 U/L (39-117); Anion Gap 17 (12-20); Aspartate Amino Transferase 15 U/L (5-31); Bilirubin Total 0.9 mg/dL (0.0-1.0); Blood Urea Nitrogen 9 mg/dL (9-16); Calcium 8.8 mg/dL (8.4-10.2); Carbon Dioxide 24 mmol/L (22-29); Chloride 103 mmol/L (96-108); Creatinine Clr Calc Pharmacy 159.6; Estimated Glomerular Filt Rate > 60; Glucose Random 147 mg/dL (60-115); Potassium 3.7 mmol/L (3.3-5.1); Sodium 140 mmol/L (135-145); Total Protein 7.4 g/dL (6.5-8.0)
[2022-07-19 06:42] LABS: COVID-19 Test Negative (Negative)
[2022-07-19 06:45] LABS: Troponin-I High Sensitivity < 3.5 ng/L (<3.5-17.0)
[2022-07-19 09:34] VITALS: BP 148/98; PULSE 95; RESP 18; TEMP 37; O2SAT 97
--- NOTE | 2022-07-19 09:47 | ED.ASTHMA ---
HPI - Asthma General Chief Complaint: Asthma Stated Complaint: SoB, trouble breathing Time Seen by Provider: 07/19/22 09:32 Source: patient Mode of arrival: ambulatory Limitations: no limitations History of Present Illness HPI Narrative: Patient presents emergency department for evaluation of shortness of breath and difficulty breathing. Last took albuterol nebulizer at approximately 05:00 o'clock this morning. She reports that this feels consistent with an asthma exacerbation. She states that she was seen here twice 1 week ago for her asthma, she was admitted for 1 day and then discharged home. She states that she took prednisone 40 mg for 2 days, but then decreased the dosage as her sugars were running high, stating she was taking 20 or 30 mg a day afterwards. She states that for her normal asthma control she is only taking albuterol inhaler/nebulizer and Singulair. When asked whether she is taking a daily controller inhaler she states ?I do not like the taste?. Denies ever needing to be intubated in the past due to her asthma. Denies fevers, chills, productive cough, chest pain, numbness or tingling of the extremities swelling of the upper lower extremities. Related Data Home Medications Medication Instructions Recorded Confirmed amlodipine 10 mg tablet 10 mg PO DAILY 12/12/20 07/14/22 telmisartan 80 1 tab PO DAILY 12/12/20 07/14/22 mg-hydrochlorothiazide 25 mg tablet empagliflozin 10 mg tablet 10 mg PO DAILY 09/23/21 07/14/22 (Jardiance) montelukast 10 mg tablet 10 mg PO DAILY 11/26/21 07/14/22 amitriptyline 25 mg tablet 1 tab PO BEDTIME 07/14/22 07/14/22 naproxen 500 mg tablet 1 tab PO BID 07/14/22 07/14/22 Previous Rx's Medication Instructions Recorded blood sugar diagnostic (Contour #100 ea 12/13/20 Next Test Strips) albuterol sulfate 90 mcg/actuation 1 inh inhalation QID PRN shortness 12/22/20 aerosol inhaler of breath or wheezing #8.5 grams nebulizers (AeroEclipse II #1 ea 12/22/20 Nebulizer) nebulizers (Compact Compressor #1 ea 12/31/20 Nebulizer) rosuvastatin 40 mg tablet 40 mg PO BEDTIME 90 days #90 tabs 03/13/21 cetirizine 10 mg tablet (Zyrtec) 10 mg PO DAILY #14 tabs 06/29/21 blood-glucose meter (FreeStyle #1 ea 07/19/21 Lite Meter kit) lancets 28 gauge (FreeStyle #200 ea 07/19/21 Lancets) blood sugar diagnostic (FreeStyle 1 strip miscellaneous .COMPLEX 10/07/21 Lite Strips) #200 strips blood-glucose transmitter (Dexcom 1 ea miscellaneous DIRECTED 90 02/27/22 G6 Transmitter device) days #1 cap insulin lispro-aabc 100 unit/mL See Rx Instructions subcut DAILY 02/28/22 subcutaneous solution (Lyumjev 90 days #140 mL U-100 Insulin) insulin pump cart,cont inf,BT #15 ea 02/28/22 (Omnipod Dash Pods (Gen 4) subcutaneous cartridge) fluticasone furoate 200 1 inh inhalation DAILY 30 days #1 03/05/22 mcg-vilanterol 25 mcg/dose ea inhalation powder (Breo Ellipta) dulaglutide 1.5 mg/0.5 mL 1.5 mg (0.5 mL) subcut QWEEK #2 mL 05/27/22 subcutaneous pen injector ([facility] Dexcom G6 Sensor (blood-glucose 1 ea topical DAILY 30 days #3 ea 07/04/22 sensor) prednisone 10 mg tablet 40 mg PO DAILY #20 tabs 07/14/22 prednisone 20 mg tablet 40 mg PO DAILY 5 days #10 tabs 07/19/22 Allergies Allergy/AdvReac Type Severity Reaction Status Date / Time canagliflozin [Invokana] Allergy Unknown rash Verified 07/13/22 18:50 liraglutide Allergy Unknown rash Verified 07/12/22 23:42 animals Allergy Unknown rash Uncoded 07/12/22 23:42 Pt states no known food Allergy Unknown Unknown Uncoded 07/12/22 23:42 allerg Review of Systems Review of Systems: Constitutional : No Fever, No Chills ENT/Mouth : No Hoarseness, No sore throat, No Rhinorrhea Eyes: No Redness, No Discharge, No Vision Changes Cardiovascular : No Chest Pain, positive SOB, positive Dyspnea on Exertion, No Edema Respiratory : positive Cough, No Sputum, positive Wheezing, Gastrointestinal : No Nausea, No Vomiting, No Diarrhea, No abdominal Pain Genitourinary : No Dysuria, No Hematuria Musculoskeletal : No joint pain, No Myalgias Skin : No rash Neuro : No Weakness, No Numbness, No Headache Psych : No anxiety, depression Heme/Lymph: No Bruising, No Bleeding Endocrine : No Polyuria, No Polydipsia Yes all other systems are reviewed and are negative REPLACED BY [facility] Past Medical History Attestation statement: The following information was validated with the patient. 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 Obesity due to excess calories Vitamin D deficiency Surgical History History of surgical procedure on mouth Hx of ectopic Family History Family History Father Diabetes mellitus Mother Diabetes mellitus Ovarian cancer Social History Social History Household Members: Spouse Housing: House Do you presently have visiting nurse or other home services: No Alcohol intake: never Patient Tobacco Use Status: Never used Tobacco Use of substances other than those prescribed or required for medical reasons: No Advance Directives: Yes Advance Directives on File: Yes Advance Directives Date on File: 07/15/22 service: No Current occupational status: employed Physical Exam Vital Signs: Vital Signs: Last Vital Signs Temp 98.6 F 07/19/22 09:34 Pulse 88 07/19/22 10:11 Resp 18 07/19/22 10:11 BP 148/98 H 07/19/22 09:34 Pulse Ox 97 07/19/22 09:34 O2 Del Method 07/19/22 09:34 BMI result Body Mass Index 39.1 Appearance: Alert.?Oriented to person, place and time. No acute distress.?Normal affect. Eyes: Pupils equal, round and reactive to light.? ENT: Pharynx normal.?? Neck: Normal inspection.? Neck supple.?? CVS: Heart sounds normal. Normal heart rate and rhythm.? Pulses normal.?? Respiratory: No respiratory distress.? Lung sounds with inspiratory and expiratory wheezing bilaterally, decreased lung sounds at the bases. Use of accessory muscles. Abdomen: Soft and non-tender. Normoactive bowel sounds. No pulsatile mass.?? Skin: Skin warm and dry.? Normal skin color.? Extremities: No lower extremity edema.? No calf ttp? Neuro: Moves all extremities spontaneously. Sensation intact bilaterally. CN II-XII intact. No focal neuro deficits. Ambulates with normal steady gait. Course Course Course Narrative: Patient is a 46-year-old female with a past medical history of moderate persistent asthma, obstructive sleep apnea, hypertension, hyperlipidemia, type 2 diabetes with neuropathy who presents emergency department today for evaluation of shortness of breath, concerns for asthma exacerbation. 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 She states she is not using any inhalers aside from albuterol have does not like the taste. She is additionally taking Singulair. She does some noticeable increased work of breathing in bilateral inspiratory expiratory wheezing at time of exam, patient received Solu-Medrol 125 mg IV, Mag 2 g IV, ipratropium/albuterol 10 mg nebulizer. Will repeat chest x-ray to evaluate for infiltrate/consolidation. Disposition pending results. Reevaluation(s) Reevaluation #1: CBC reveals a mild leukocytosis 12.6 which is down trending from previous admission, unremarkable CMP. Chest x-ray with no acute cardiopulmonary process. Patient received updraft as of this time, continues to have inspiratory wheezing throughout. Time: 10:54 Reevaluation #2: Continues to have inspiratory wheezing throughout, decreased expiratory phase, and diminished lung sounds at the bases. Magnesium still infusing at this time. Will perform ambulation trial assess for hypoxia tachycardia with tachypnea. Suspect symptoms to be most consistent with asthma exacerbation, she has moderate persistent asthma most recently diagnosed but is not on any controller medication, which would likely be of significant benefit. Time: 12:38 Reevaluation #3: Patient ambulated with slow steady gait hand feelings of shortness of breath while ambulating but no significant tachypnea, no hypoxia, or no tachycardia. Wheezing persists, however she is moving more air at this time. Discussed these findings with patient. Plan for discharge home, additional course of oral steroids, advised close monitoring of her blood glucose levels and covering accordingly with sliding scale insulin. Advised that she needs to contact her compressor house operator to arrange for further follow-up as she needs to be on a control medication. Advised to contact her primary care provider for follow-up within the next 3 days. Reviewed worrisome signs and symptoms to return back to the emergency department for. All questions were answered, and patient was discharged home in stable condition despite clear full sentences, no apparent respiratory distress. [facility] - Asthma Medical Records Attestation: I reviewed the patient's medical records. Lab Data Attestation: I reviewed the patient's lab results. Result diagrams: 07/19/22 06:18 07/19/22 06:18 Labs: Lab Results 07/19/22 07/19/22 07/19/22 Range/Units 06:18 06:18 06:18 WBC 12.6 H (4.8-10.8) X10*3/uL RBC 5.37 (4.20-5.50) X10*6/uL Hgb 14.2 (12.0-16.0) g/dl Hct 43.5 (37.0-47.0) % MCV 81.0 (80.0-98.0) fL MCH 26.4 L (27.0-33.0) pg MCHC 32.6 (31.0-35.0) g/dl RDW 14.6 (11.0-16.0) % Plt Count 348 (160-400) X10*3/uL MPV 9.2 L (9.4-12.3) fL Absolute Nucleated RBC 0.000 (0.0-0.012) X10*3/uL Nucleated RBC % (auto) 0.0 (0.0-0.2) /100WBC Sodium 140 (135-145) mmol/L Potassium 3.7 (3.3-5.1) mmol/L Chloride 103 (96-108) mmol/L Carbon Dioxide 24 (22-29) mmol/L Anion Gap 17 (12-20) BUN 9 (9-16) mg/dL Creatinine 0.56 (0.5-1.4) mg/dL Estim Creat Clear Calc 159.6 Estimated GFR > 60 Random Glucose 147 H (60-115) mg/dL Calcium 8.8 D (8.4-10.2) mg/dL Total Bilirubin 0.9 (0.0-1.0) mg/dL AST 15 (5-31) U/L ALT 26 (0-31) U/L Alkaline Phosphatase 97 (39-117) U/L Troponin I High Sens < 3.5 (<3.5-17.0) ng/L Total Protein 7.4 (6.5-8.0) g/dL Albumin 4.1 (3.5-5.0) g/dL COVID-19 (DANK) (Negative) COVID-19 Clin Com 07/19/22 Range/Units 06:18 WBC (4.8-10.8) X10*3/uL RBC (4.20-5.50) X10*6/uL Hgb (12.0-16.0) g/dl Hct (37.0-47.0) % MCV (80.0-98.0) fL MCH (27.0-33.0) pg MCHC (31.0-35.0) g/dl RDW (11.0-16.0) % Plt Count (160-400) X10*3/uL MPV (9.4-12.3) fL Absolute Nucleated RBC (0.0-0.012) X10*3/uL Nucleated RBC % (auto) (0.0-0.2) /100WBC Sodium (135-145) mmol/L Potassium (3.3-5.1) mmol/L Chloride (96-108) mmol/L Carbon Dioxide (22-29) mmol/L Anion Gap (12-20) BUN (9-16) mg/dL Creatinine (0.5-1.4) mg/dL Estim Creat Clear Calc Estimated GFR Random Glucose (60-115) mg/dL Calcium (8.4-10.2) mg/dL Total Bilirubin (0.0-1.0) mg/dL AST (5-31) U/L ALT (0-31) U/L Alkaline Phosphatase (39-117) U/L Troponin I High Sens (<3.5-17.0) ng/L Total Protein (6.5-8.0) g/dL Albumin (3.5-5.0) g/dL COVID-19 (DANK) Negative (Negative) COVID-19 Clin Com See Note Imaging Data Chest x-ray: Radiologist's impression: XR/XR chest 2V IMPRESSION: No acute cardiopulmonary process. ECG Data Attestation: I personally reviewed and interpreted this ECG as follows: ECG interpretation date: 07/19/22 Prior ECG tracings: available for review Interpretation: Rate: 85 Rhythm:? Normal sinus rhythm [place]:? Normal Normal P waves.? Normal MISAEL.?? Normal QRS complex.?? ST T wave :??No ST elevation, no ST depression, no T-wave inversion qTC:449 The study has been interpreted contemporaneously by me. Discharge Plan Discharge Clinical Impression: Asthma Patient Disposition: Home, Self-Care Instructions: Asthma (ED) Additional Instructions: As we discussed, you have been given an additional course of prednisone to take for your asthma exacerbation, please continue to monitor your blood sugars very closely as you will likely require additional coverage with her sliding scale insulin because this prednisone will increase your blood sugars. Additionally, it is very important that you contact your compressor house operator on Thursday morning, because you need to discuss a controlled medication as you are not currently taking one. Continue using your albuterol inhaler/updrafts as needed. Return to the emergency department with any new or worsening symptoms or concerns. Contact your primary care provider to additionally arrange for further follow-up. Prescriptions: New prednisone 20 mg tablet 40 mg PO DAILY 5 Days Qty: 10 0RF No Action (DME) Contour Next Test Strips Strip See Rx Instructions .ROUTE .MEDSUPPLY Qty: 100 6RF Rx Instructions: 6 times a day FreeStyle Lite Strips Strip 1 strip miscellaneous .COMPLEX Qty: 200 11RF Rx Instructions: 1 strip miscellaneous five times a day; Dexcom G6 Transmitter Device 1 ea miscellaneous DIRECTED 90 Days Qty: 1 3RF Breo Ellipta 200-25 mcg/dose blister with device 1 inh inhalation DAILY 30 Days Qty: 1 6RF Trulicity 1.5 mg/0.5 mL pen injector 1.5 mg subcut QWEEK Qty: 2 5RF Dexcom G6 Sensor Device 1 ea topical DAILY 30 Days Qty: 3 11RF (DME) AeroEclipse II Nebulizer Misc See Rx Instructions .ROUTE .MEDSUPPLY Qty: 1 0RF Rx Instructions: As directed albuterol sulfate 90 mcg/actuation HFA aerosol inhaler 1 inh inhalation QID PRN (Reason: shortness of breath or wheezing) Qty: 8.5 0RF (DME) Compact Compressor Nebulizer Misc See Rx Instructions .ROUTE .MEDSUPPLY Qty: 1 0RF Rx Instructions: As directed cetirizine [Zyrtec] 10 mg tablet 10 mg PO DAILY Qty: 14 0RF amitriptyline 25 mg tablet 1 tab PO BEDTIME naproxen 500 mg tablet 1 tab PO BID prednisone 10 mg tablet 40 mg PO DAILY Qty: 20 0RF (DME) blood-glucose meter [FreeStyle Lite Meter] Kit See Rx Instructions .ROUTE .MEDSUPPLY Qty: 1 0RF Rx Instructions: As directed (DME) lancets [FreeStyle Lancets] 28 gauge misc See Rx Instructions .ROUTE .MEDSUPPLY Qty: 200 1RF Rx Instructions: 5x/day montelukast 10 mg tablet 10 mg PO DAILY telmisartan-hydrochlorothiazid 80-25 mg tablet 1 tab PO DAILY amlodipine 10 mg tablet 10 mg PO DAILY rosuvastatin 40 mg tablet 40 mg PO BEDTIME 90 Days Qty: 90 2RF Jardiance 10 mg tablet 10 mg PO DAILY Lyumjev U-100 Insulin 100 unit/mL solution See Rx Instructions subcut DAILY 90 Days Qty: 140 3RF Rx Instructions: up to 150 mg/dl via pump subcut daily; (DME) Omnipod Dash Pods (Gen 4) Cartridge See Rx Instructions subcut Q3D Qty: 15 11RF Rx Instructions: As directed change every 2 day Referrals: Shandra Diaz MD [Primary Care Provider] -
[2022-07-19] MEDS: Albuterol Sulfate 5 MG, Albuterol Sulfate (0.083%) 2.5 MG 7.5 MG INHALE (10:10)
[2022-07-19] MEDS: Albuterol/Iprat 2.5/0.5MG 3 ML AMPUL.NEB INHALE (10:10)
[2022-07-19 10:11] VITALS: PULSE 88; RESP 18; O2SAT 95
[2022-07-19] MEDS: methylPREDNISolone Sod Succ 125 MG/2 ML VIAL IVPUSH (11:17)
[2022-07-19] MEDS: Magnesium Sulfate/H2O 2 GM/50 ML PIGGYBACK IV (11:25)
--- NOTE | 2022-07-19 13:46 | PC.NURSE ---
ambulated pt in the hallway while monitoring O2, she started off at 97% and did drop to 95% and that number was maintained throughout the walk, she did have to stop x 2 for SOB. FOOD SPECIALIST aware
[2022-07-19 13:59] VITALS: BP 141/80; PULSE 95; RESP 18; TEMP 37.2; O2SAT 94
== END 2022-07-19 14:27 | disposition home or self-care (01) ==
PROVIDERS: Emergency Provider Emergency Medicine; PCP Internal Medicine
DX: J45.909 Unspecified asthma, uncomplicated (principal); Z20.822 Contact with and (suspected) exposure to COVID-19; R06.02 Shortness of breath; I10 Essential (primary) hypertension; E78.5 Hyperlipidemia, unspecified; E11.9 Type 2 diabetes mellitus without complications; Z79.4 Long term (current) use of insulin; Z79.02 Long term (current) use of antithrombotics/antiplatelets; Z79.899 Other long term (current) drug therapy
CPT/HCPCS: 36415; 71046; 80053; 84484; 85027; 87635; 93005; 94640; 96365; 96366; 96375; 99284; 99285; J2930; J3475

== ENCOUNTER 2022-07-28 23:10 | Inpatient (IN) | payer OTHER, SELFPAY ==
--- NOTE | ~2022-07-28 | XR_ITS ---
EXAMINATION: XR CHEST CLINICAL INFORMATION: Short of breath COMPARISON: 07/19/2022 TECHNIQUE: Frontal view of the chest was obtained. FINDINGS: Cardiac leads overlie the chest. The lungs are well expanded. There is no focal consolidation, edema, or effusion. No pneumothorax. The cardiomediastinal silhouette is within normal limits. No acute osseous abnormality. XR/XR chest 1V IMPRESSION: No acute pulmonary finding.
[2022-07-29] VITALS (15 sets, daily range): BP systolic 110–149; BP diastolic 58–91; PULSE 80–102; RESP 14–22; TEMP 36.4–37; O2SAT 93–99; BMI 39.2
[2022-07-29 00:16] LABS: Glucose, Whole Blood 271 mg/dL (60-115)
--- NOTE | 2022-07-29 00:28 | ED.ASTHMA ---
HPI - Asthma General Chief Complaint: Asthma Stated Complaint: chills, SoB, diff breathing Time Seen by Provider: 07/29/22 00:28 Source: patient Mode of arrival: ambulatory Limitations: no limitations History of Present Illness HPI Narrative: Patient with history of asthma, hypertension, diabetes, HLD recently admitted on 07/14 for asthma comes back as not feeling good with increased shortness of breath for last few days with obvious wheezing on arrival no fever no chills mostly has dry cough Related Data Home Medications Medication Instructions Recorded Confirmed amlodipine 10 mg tablet 10 mg PO DAILY 12/12/20 07/14/22 telmisartan 80 1 tab PO DAILY 12/12/20 07/14/22 mg-hydrochlorothiazide 25 mg tablet empagliflozin 10 mg tablet 10 mg PO DAILY 09/23/21 07/14/22 (Jardiance) montelukast 10 mg tablet 10 mg PO DAILY 11/26/21 07/14/22 amitriptyline 25 mg tablet 1 tab PO BEDTIME 07/14/22 07/14/22 naproxen 500 mg tablet 1 tab PO BID 07/14/22 07/14/22 Previous Rx's Medication Instructions Recorded blood sugar diagnostic (Contour #100 ea 12/13/20 Next Test Strips) albuterol sulfate 90 mcg/actuation 1 inh inhalation QID PRN shortness 12/22/20 aerosol inhaler of breath or wheezing #8.5 grams nebulizers (AeroEclipse II #1 ea 12/22/20 Nebulizer) nebulizers (Compact Compressor #1 ea 12/31/20 Nebulizer) rosuvastatin 40 mg tablet 40 mg PO BEDTIME 90 days #90 tabs 03/13/21 cetirizine 10 mg tablet (Zyrtec) 10 mg PO DAILY #14 tabs 06/29/21 blood-glucose meter (FreeStyle #1 ea 07/19/21 Lite Meter kit) lancets 28 gauge (FreeStyle #200 ea 07/19/21 Lancets) blood sugar diagnostic (FreeStyle 1 strip miscellaneous .COMPLEX 10/07/21 Lite Strips) #200 strips blood-glucose transmitter (Dexcom 1 ea miscellaneous DIRECTED 90 02/27/22 G6 Transmitter device) days #1 cap insulin lispro-aabc 100 unit/mL See Rx Instructions subcut DAILY 02/28/22 subcutaneous solution (Lyumjev 90 days #140 mL U-100 Insulin) insulin pump cart,cont inf,BT #15 ea 02/28/22 (Omnipod Dash Pods (Gen 4) subcutaneous cartridge) fluticasone furoate 200 1 inh inhalation DAILY 30 days #1 03/05/22 mcg-vilanterol 25 mcg/dose ea inhalation powder (Breo Ellipta) dulaglutide 1.5 mg/0.5 mL 1.5 mg (0.5 mL) subcut QWEEK #2 mL 05/27/22 subcutaneous pen injector (Trulicity) Dexcom G6 Sensor (blood-glucose 1 ea topical DAILY 30 days #3 ea 07/04/22 sensor) prednisone 10 mg tablet 40 mg PO DAILY #20 tabs 07/14/22 prednisone 20 mg tablet 40 mg PO DAILY 5 days #10 tabs 07/19/22 Allergies Allergy/AdvReac Type Severity Reaction Status Date / Time canagliflozin [Invokana] Allergy Unknown rash Verified 07/29/22 00:03 liraglutide Allergy Unknown rash Verified 07/29/22 00:03 animals Allergy Unknown rash Uncoded 07/29/22 00:03 Pt states no known food Allergy Unknown Unknown Uncoded 07/29/22 00:03 allerg Review of Systems Review of Systems: Yes all other systems are reviewed and are negative PMFSH Past Medical History Medical History Asthma Diabetes Diabetes type 2, uncontrolled Diabetic 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 with type 2 diabetes mellitus Ectopic Hyperlipidemia Hypertension half-way (current) use of insulin Obesity due to excess calories Vitamin D deficiency Surgical History History of surgical procedure on mouth Hx of ectopic Family History Family History Father Diabetes mellitus Mother Diabetes mellitus Ovarian cancer Social History Social History Household Members: Spouse Housing: House Do you presently have visiting nurse or other home services: No Alcohol intake: never Patient Tobacco Use Status: Never used Tobacco Use of substances other than those prescribed or required for medical reasons: No Advance Directives: Yes Advance Directives on File: Yes Advance Directives Date on File: 07/15/22 service: No Current occupational status: employed Physical Exam Vital Signs: Vital Signs: Last Vital Signs Temp 98.5 F 07/29/22 00:04 Pulse 82 07/29/22 01:55 Resp 18 07/29/22 01:55 BP 138/58 L 07/29/22 01:55 Pulse Ox 96 07/29/22 01:55 O2 Del Method 07/29/22 01:55 BMI result Body Mass Index 39.2 Appearance: Alert. Oriented X3. No acute distress. Eyes: PERRLA, No Nystagmus ENT: Pharynx normal. Oral Mucosa moist Neck: Normal inspection. Neck supple. CVS: Normal heart rate and rhythm. Pulses normal. Respiratory: Moderate respiratory distress. Equal air entry bilateral, bilateral wheezing and rhonchi no rales Abdomen: Soft and nontender. Bowel sounds are present, no mass palpable, no CVA tenderness Skin: Skin warm and dry. Normal skin color. Normal skin turgor. Extremities: No lower extremity edema. No calf tenderness Neuro: Oriented X 3. No motor deficit. MDM - Asthma MDM Narrative Medical decision making narrative: Patient has severe asthma saturating 90% at room air will admit patient or bronchodilator treatment and steroids Differential Diagnosis Differential diagnosis: Likely Acute exacerbation Medical Records Attestation: I reviewed the patient's medical records. Lab Data Attestation: I reviewed the patient's lab results. Result diagrams: 07/29/22 00:59 07/29/22 00:59 Labs: Lab Results 07/29/22 07/29/22 07/29/22 Range/Units 00:12 00:56 00:59 WBC 15.9 H (4.8-10.8) X10*3/uL RBC 5.41 (4.20-5.50) X10*6/uL Hgb 14.4 (12.0-16.0) g/dl Hct 43.8 (37.0-47.0) % MCV 81.0 (80.0-98.0) fL MCH 26.6 L (27.0-33.0) pg MCHC 32.9 (31.0-35.0) g/dl RDW 15.0 (11.0-16.0) % Plt Count 405 H (160-400) X10*3/uL MPV 9.8 (9.4-12.3) fL Immature Gran % (Auto) 0.5 H (0.0-0.4) % Neut % (Auto) 66.0 (45-73) % Lymph % (Auto) 23.7 (20-40) % [place] % (Auto) 5.1 (2-11) % Eos % (Auto) 4.3 H (0-4) % Baso % (Auto) 0.4 (0-2) % Lymph # (Auto) 3.8 (1.2-4.9) X10*3/uL [place] # (Auto) 0.8 (0.1-1.2) X10*3/uL Eos # (Auto) 0.7 H (0.0-0.4) X10*3/uL Baso # (Auto) 0.1 (0.0-0.2) X10*3/uL Abs Immat Gran (auto) 0.08 H (0.00-0.03) X10*3/uL Absolute Neuts (auto) 10.5 H (2.0-8.3) x10*3/uL Absolute Nucleated RBC 0.000 (0.0-0.012) X10*3/uL Nucleated RBC % (auto) 0.0 (0.0-0.2) /100WBC Sodium (135-145) mmol/L Potassium (3.3-5.1) mmol/L Chloride (96-108) mmol/L Carbon Dioxide (22-29) mmol/L Anion Gap (12-20) BUN (9-16) mg/dL Creatinine (0.5-1.4) mg/dL Estim Creat Clear Calc Estimated GFR POC Glucose 271 H (60-115) mg/dL Random Glucose (60-115) mg/dL Calcium (8.4-10.2) mg/dL COVID-19 (DANK) Negative (Negative) COVID-19 Clin Com See Note 07/29/22 Range/Units 00:59 WBC (4.8-10.8) X10*3/uL RBC (4.20-5.50) X10*6/uL Hgb (12.0-16.0) g/dl Hct (37.0-47.0) % MCV (80.0-98.0) fL MCH (27.0-33.0) pg MCHC (31.0-35.0) g/dl RDW (11.0-16.0) % Plt Count (160-400) X10*3/uL MPV (9.4-12.3) fL Immature Gran % (Auto) (0.0-0.4) % Neut % (Auto) (45-73) % Lymph % (Auto) (20-40) % [place] % (Auto) (2-11) % Eos % (Auto) (0-4) % Baso % (Auto) (0-2) % Lymph # (Auto) (1.2-4.9) X10*3/uL [place] # (Auto) (0.1-1.2) X10*3/uL Eos # (Auto) (0.0-0.4) X10*3/uL Baso # (Auto) (0.0-0.2) X10*3/uL Abs Immat Gran (auto) (0.00-0.03) X10*3/uL Absolute Neuts (auto) (2.0-8.3) x10*3/uL Absolute Nucleated RBC (0.0-0.012) X10*3/uL Nucleated RBC % (auto) (0.0-0.2) /100WBC Sodium 142 (135-145) mmol/L Potassium 4.2 (3.3-5.1) mmol/L Chloride 105 (96-108) mmol/L Carbon Dioxide 25 (22-29) mmol/L Anion Gap 16 (12-20) BUN 11 (9-16) mg/dL Creatinine 0.65 (0.5-1.4) mg/dL Estim Creat Clear Calc 137.7 Estimated GFR > 60 POC Glucose (60-115) mg/dL Random Glucose 304 H (60-115) mg/dL Calcium 9.3 (8.4-10.2) mg/dL COVID-19 (DANK) (Negative) COVID-19 Clin Com Discharge Plan Discharge Clinical Impression: Asthma with acute exacerbation Patient Disposition: Admitted As Inpatient
--- NOTE | 2022-07-29 00:31 | PC.NURSE ---
pt alert and oriented, skin pwd, respirations slightly labored breathing about 24 per min, lip purse breathing, ls wheezing through out, sating at 97% on room air
[2022-07-29] MEDS: Albuterol Sulfate 5 MG, Albuterol/Iprat 2.5/0.5MG 3 ML 3 ML INHALE (00:49)
[2022-07-29] MEDS: dexAMETHasone sod phosphate 10 MG/ML VIAL IVPUSH (00:52)
[2022-07-29] MEDS: Magnesium Sulfate/H2O 2 GM/50 ML PIGGYBACK IV (00:53)
[2022-07-29 01:03] LABS: MANUAL DIFF FLAG NO
[2022-07-29 01:05] LABS: Basophils Absolute Auto 0.1 X10*3/uL (0.0-0.2); Basophils Percent Auto 0.4 % (0-2); Eosinophils Absolute Auto 0.7 X10*3/uL (0.0-0.4); Eosinophils Percent Auto 4.3 % (0-4); Hematocrit 43.8 % (37.0-47.0); Hemoglobin 14.4 g/dl (12.0-16.0); Imm Gran Abs Auto 0.08 X10*3/uL (0.00-0.03); Imm Gran Pct Auto 0.5 % (0.0-0.4); Lymphocytes Absolute Auto 3.8 X10*3/uL (1.2-4.9); Lymphocytes Percent Auto 23.7 % (20-40); Mean Corpuscular HGB Conc 32.9 g/dl (31.0-35.0); Mean Corpuscular Hemoglobin 26.6 pg (27.0-33.0); Mean Platelet Volume 9.8 fL (9.4-12.3); Monocytes Absolute Auto 0.8 X10*3/uL (0.1-1.2); Monocytes Percent Auto 5.1 % (2-11); Neutrophils Absolute Auto 10.5 x10*3/uL (2.0-8.3); Platelet Count 405 X10*3/uL (160-400); Red Blood Count 5.41 X10*6/uL (4.20-5.50); White Blood Count 15.9 X10*3/uL (4.8-10.8)
[2022-07-29 01:21] LABS: Anion Gap 16 (12-20); Blood Urea Nitrogen 11 mg/dL (9-16); Calcium 9.3 mg/dL (8.4-10.2); Carbon Dioxide 25 mmol/L (22-29); Chloride 105 mmol/L (96-108); Creatinine Clr Calc Pharmacy 137.7; Estimated Glomerular Filt Rate > 60; Glucose Random 304 mg/dL (60-115); Potassium 4.2 mmol/L (3.3-5.1); Sodium 142 mmol/L (135-145)
[2022-07-29 01:24] LABS: COVID-19 Test Negative (Negative)
--- NOTE | 2022-07-29 01:56 | PC.NURSE ---
pt is currently asleep, respirations even and unlabored, normal sinus on the monitor
--- NOTE | 2022-07-29 01:57 | PM.IMHP ---
History of Present Illness Date of Service: 07/29/22 Chief Complaint: SOB 46-year-old female with a past medical history of hypertension, hyperlipidemia, diabetes, asthma-intubated in the past, multiple allergies, vitamin-D deficiency, neuropathy, RADHA presented to the hospital today with a chief complaint of shortness of breath. Patient mentioned that she was recently admitted to the hospital for acute asthma exacerbation, discharged on prednisone taper which she finished yesterday and today she started to feel short of breath which has acutely worsened since decided to come to the ER for further evaluation. Mentions that her breathing slightly better of fever the treatment in the ER. Denies any fever chills. Reports cough without any sputum production. Denies any chest pain or palpitations. Mentions that she has multiple allergies and unsure of any triggers specifically at home. Review of all other systems is negative except mentioned above ER course: Per ER team patient on presentation noted to be in mild respiratory distress; given nebulizations and steroids with improvement in respiratory status. Placed on supplemental oxygen. Admitted to the hospital for further management. [facility] Medical History Asthma Diabetes Diabetes type 2, uncontrolled Diabetic 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 with type 2 diabetes mellitus Ectopic Eosinophilia Hyperlipidemia Hypertension skilled nursing (current) use of insulin Obesity due to excess calories Vitamin D deficiency Family History Father Diabetes mellitus Mother Diabetes mellitus Ovarian cancer Surgical History History of surgical procedure on mouth Hx of ectopic Social History Household Members: Spouse Housing: House Do you presently have visiting nurse or other home services: No Alcohol intake: never Patient Tobacco Use Status: Never used Tobacco Advance Directives Date on File: 07/15/22 service: No Current occupational status: employed Meds Allergies Allergy/AdvReac Type Severity Reaction Status Date / Time canagliflozin [Invokana] Allergy Unknown rash Verified 08/09/22 16:54 liraglutide Allergy Unknown rash Verified 08/09/22 16:54 animals Allergy Unknown rash Uncoded 08/08/22 08:13 Pt states no known food Allergy Unknown Unknown Uncoded 08/08/22 08:13 allerg Active Medications: Current Medications Acetaminophen (Acetaminophen 325 Mg Tablet) 650 mg PO Q6H PRN PRN Reason: Pain, Mild (Pain Scale 1-3) Albuterol/Ipratropium (Albuterol/Iprat 2.5/0.5mg 3 Ml Ampul.Neb) 3 ml INHALE RQ4H PRN PRN Reason: Shortness of Breath/Wheezing Dextrose (Dextrose 50 % 25 Gm/50 Ml Syringe) 25 gm IVPUSH Q15M PRN; Protocol PRN Reason: per Hypoglycemia Standing Ord. Enoxaparin Sodium (Enoxaparin Sodium 40 Mg/0.4 Ml Syringe) 40 mg SUBCUT Q24H [facility] Glucose (Glucose Gel 15 Gm Gel..Gram.) 15 gm PO Q15M PRN; Protocol PRN Reason: per Hypoglycemia Standing Ord. Sodium Chloride (Ns) 1,000 mls @ 999 mls/hr IV .Q1H1M ONE Stop: 07/29/22 02:52 Insulin Glargine (Insulin Glargine,Hum.Rec.Anlog 100 Unit/Ml 10 Ml Vial) 10 unit SUBCUT BEDTIME [facility] Insulin Human Lispro (Insulin Lispro 100 Unit/Ml 3 Ml Vial) 0 unit SUBCUT QIDACHS [facility]; Protocol Levalbuterol HCl (Levalbuterol Hcl 1.25 Mg/0.5 Ml Vial.Neb) 1.25 mg INHALE RQ4H WHILE AWAKE [facility] Melatonin (Melatonin 3 Mg Tablet) 6 mg PO BEDTIME PRN PRN Reason: Insomnia Methylprednisolone Sodium Succinate (Methylprednisolone Sod Succ 40 Mg/Ml Vial) 40 mg IVPUSH Q8H [facility] Senna (Sennosides 8.6 Mg Tablet) 17.2 mg PO BEDTIME PRN PRN Reason: Constipation Sodium Chloride (0.9 % Sodium Chloride Flush 3 Ml Syringe) 3 ml IVFLUSH QSHIFT [facility] Home Medications Medication Instructions Recorded Confirmed Last Taken Type amlodipine 10 mg tablet 10 mg PO DAILY 12/12/20 08/10/22 08/09/22 History telmisartan 80 1 tab PO DAILY 12/12/20 08/10/22 08/09/22 History mg-hydrochlorothiazide 25 mg tablet montelukast 10 mg tablet 10 mg PO BEDTIME 11/26/21 08/10/22 08/08/22 History amitriptyline 25 mg tablet 1 tab PO BEDTIME 07/14/22 08/10/22 08/08/22 History naproxen 500 mg tablet 1 tab PO BID PRN Pain 07/14/22 08/10/22 Unknown History empagliflozin 25 mg tablet 1 tab PO DAILY 07/29/22 08/10/22 08/09/22 History (Jardiance) metformin 1,000 mg tablet 1 tab PO BID 07/29/22 08/10/22 08/09/22 History albuterol sulfate 2.5 mg/3 mL 2.5 mg inhalation BID 08/08/22 08/10/22 Unknown History (0.083 %) solution for nebulization blood sugar diagnostic (FreeStyle 08/08/22 Unknown History Lite Strips) blood-glucose meter,continuous 08/08/22 Unknown History (Dexcom G6 Box Estimator misc) blood-glucose sensor (Dexcom G6 08/08/22 Unknown History Sensor device) blood-glucose transmitter (Dexcom 08/08/22 Unknown History G6 Transmitter device) tirzepatide 2.5 mg/0.5 mL 2.5 mg subcut WE 08/08/22 08/10/22 08/06/22 History subcutaneous pen injector (Mounjaro) insulin lispro 100 unit/mL See Rx Instructions .Route .COMPLEX 08/10/22 08/10/22 Unknown History subcutaneous pen (Humalog KwikPen (U-100) Insulin) Physical Exam Vital Signs and Narrative: Vital Signs: Last Vital Signs Temp 98.5 F 07/29/22 00:04 Pulse 82 07/29/22 01:55 Resp 18 07/29/22 01:55 BP 138/58 L 07/29/22 01:55 Pulse Ox 96 07/29/22 01:55 O2 Del Method 07/29/22 01:55 BMI result Body Mass Index 39.2 Gen: Appears be in no acute distress . Speaks in full sentences. HEENT: NCAT, Moist mucosa. Pulmonary: Bilateral wheezing noted CVS: Normal S1-S2 Abdomen: BS+, Soft, Nontender Extremities: Warm well perfused Neuro: Alert and awake. Results Labs CBC and Chem 7: 07/29/22 08:05 07/29/22 08:05 Labs: Laboratory Results - last 24 hr 07/29/22 07/29/22 07/29/22 00:12 00:56 00:59 MCV 81.0 MCH 26.6 L MCHC 32.9 RDW 15.0 Plt Count 405 H MPV 9.8 Immature Gran % (Auto) 0.5 H Neut % (Auto) 66.0 Lymph % (Auto) 23.7 [place] % (Auto) 5.1 Eos % (Auto) 4.3 H Baso % (Auto) 0.4 Lymph # (Auto) 3.8 [place] # (Auto) 0.8 Eos # (Auto) 0.7 H Baso # (Auto) 0.1 Abs Immat Gran (auto) 0.08 H Absolute Neuts (auto) 10.5 H Absolute Nucleated RBC 0.000 Nucleated RBC % (auto) 0.0 Anion Gap Estim Creat Clear Calc Estimated GFR POC Glucose 271 H Random Glucose Calcium COVID-19 ([facility]) Negative COVID-19 Clin Com See Note 07/29/22 00:59 MCV MCH MCHC RDW Plt Count MPV Immature Gran % (Auto) Neut % (Auto) Lymph % (Auto) [place] % (Auto) Eos % (Auto) Baso % (Auto) Lymph # (Auto) [place] # (Auto) Eos # (Auto) Baso # (Auto) Abs Immat Gran (auto) Absolute Neuts (auto) Absolute Nucleated RBC Nucleated RBC % (auto) Anion Gap 16 Estim Creat Clear Calc 137.7 Estimated GFR > 60 POC Glucose Random Glucose 304 H Calcium 9.3 COVID-19 ([facility]) COVID-19 Clin Com Assessment and Plan (1) Asthma with acute exacerbation: Status: Resolved Plan 46-year-old female with a past medical history of hypertension, hyperlipidemia, diabetes, asthma-intubated in the past, multiple allergies, vitamin-D deficiency, neuropathy, RADHA presented to the hospital today with a chief complaint of shortness of breath. noted to be in acute asthma exacerbation. Admitted for further management. Acute asthma exacerbation: Patient mentioned that she was intubated once in the past because of acute asthma exacerbation before COVID. Continue Solu-Medrol IV Nebulizations standing and p.r.n. Supplemental oxygen p.r.n. Pulmonology consult Patient is recommended to have home inspection done given recurrent presentations for acute asthma exacerbation. history of diabetes: Will give the patient on Lantus 10 units plus insulin sliding scale. Monitor fingerstick glucose and adjust insulins as needed. History of hypertension /hyperlipidemia: Continue home medications DVT prophylaxis: Lovenox Code status: Full code Quality Stroke Does the patient have a stroke diagnosis?: No VTE Prior VTE?: No VTE Risk Level:: Medical - moderate - high VTE Device Contraindication: Treatment Not Indicated VTE Drug Contraindication: N/A - Med Ordered
[2022-07-29] MEDS: Albuterol Sulfate 2.5 MG, Albuterol Sulfate (0.083%) 2.5 MG 5 MG INHALE (02:04)
[2022-07-29] MEDS: Enoxaparin Sodium 40 MG/0.4 ML SYRINGE SUBCUT (02:54)
[2022-07-29] MEDS: 0.9 % Sodium Chloride 1,000 ML 999 ML IV (02:54)
[2022-07-29 06:09] LABS: Glucose, Whole Blood 233 mg/dL (60-115)
--- NOTE | 2022-07-29 07:19 | PHA.MEDREC ---
Pharmacy Consult ? Medication Reconciliation Pharmacy has completed the medication reconciliation. Reviewed med rec done by nursing
[2022-07-29 08:12] LABS: Basophils Percent Auto 0.2 % (0-2); Hematocrit 42.4 % (37.0-47.0); Hemoglobin 13.9 g/dl (12.0-16.0); Imm Gran Abs Auto 0.06 X10*3/uL (0.00-0.03); Imm Gran Pct Auto 0.5 % (0.0-0.4); Lymphocytes Percent Auto 8.2 % (20-40); MANUAL DIFF FLAG SCAN; Mean Corpuscular HGB Conc 32.8 g/dl (31.0-35.0); Mean Corpuscular Hemoglobin 26.6 pg (27.0-33.0); Mean Corpuscular Volume 81.2 fL (80.0-98.0); Mean Platelet Volume 9.1 fL (9.4-12.3); Monocytes Absolute Auto 0.1 X10*3/uL (0.1-1.2); Monocytes Percent Auto 0.8 % (2-11); Neutrophils Percent Auto 90.3 % (45-73); Platelet Count 350 X10*3/uL (160-400); Red Blood Count 5.22 X10*6/uL (4.20-5.50); Red Cell Distribution Width 14.8 % (11.0-16.0); SCAN SMEAR FLAG 1; White Blood Count 12.2 X10*3/uL (4.8-10.8)
[2022-07-29 08:25] LABS: Anion Gap 15 (12-20); Blood Urea Nitrogen 10 mg/dL (9-16); Calcium 8.6 mg/dL (8.4-10.2); Carbon Dioxide 22 mmol/L (22-29); Chloride 109 mmol/L (96-108); Creatinine Clr Calc Pharmacy 159.8; Estimated Glomerular Filt Rate > 60; Glucose Random 232 mg/dL (60-115); Potassium 4.4 mmol/L (3.3-5.1); Sodium 142 mmol/L (135-145)
[2022-07-29 08:39] LABS: SLIDE REVIEW VERIFIED
[2022-07-29] MEDS: Insulin Lispro 100 UNIT/ML 3 ML VIAL SUBCUT ×4 (08:39→21:23)
--- NOTE | 2022-07-29 09:32 | PM.CNPUL ---
History of Present Illness History of Present Illness Consult date: 07/29/22 Reason for consult: dyspnea, cough and hypoxemia Chief complaint: ASTHMA EXACERBATION Narrative: This patient is 46 years old female grossly obese, and diabetic, also has history of recurrent exacerbations of bronchial asthma. She has long-standing history of bronchial asthma and has become dependent on steroids. During the past 2 years has been seen frequently in the emergency room with acute exacerbations. Recently admitted for 1 day on 07/14 with acute exacerbation, and she was discharged home to complete course of prednisone 40 mg a day for 7 days. She completed her prednisone 2 days earlier, and then she started having cough chest congestion and shortness of breath again. She denied any fever or chills. The complicating factor raise that with steroids her blood sugars jump up very high requiring more insulin, and she already has complication of the 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. Her asthma symptoms are around the year, she is not able to pinpoint any particular triggers . Review of Systems Review of Systems: Yes all other systems are reviewed and are negative Eyes: Eyes: Reports no additional eye complaints ENT: Reports nasal congestion (Mild off and on) Cardiovascular: Cardiovascular: Denies chest pain and Denies irregular heart rhythm Respiratory: Respiratory: Reports as per HPI Gastrointestinal: Gastrointestinal: Reports no additional gastrointestinal complaints Genitourinary: Genitourinary: Reports no additional female genitourinary complaints Musculoskeletal: Musculoskeletal: Reports no additional musculoskeletal complaints Integumentary/Breasts: Skin/Breast: Reports system reviewed and no additional complaints, except as docu Neurologic: Reports other (Symptoms of peripheral neuropathy) Psychiatric: Psychiatric: Reports no additional psychiatric complaints [facility] Past Medical History Medical History (Updated 07/29/22 @ 09:41 by Juan Schultz MD) Asthma Diabetes Diabetes type 2, uncontrolled Diabetic 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 with type 2 diabetes mellitus Ectopic Eosinophilia Hyperlipidemia 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 Obesity due to excess calories Vitamin D deficiency Family History Family History Father Diabetes mellitus Mother Diabetes mellitus Ovarian cancer Surgical History Surgical History History of surgical procedure on mouth Hx of ectopic Social History Social History Household Members: Spouse Housing: House Do you presently have visiting nurse or other home services: No Alcohol intake: never Patient Tobacco Use Status: Never used Tobacco Use of substances other than those prescribed or required for medical reasons: No Advance Directives: Yes Advance Directives on File: Yes Advance Directives Date on File: 07/15/22 service: No Current occupational status: employed Meds Allergies Allergy/AdvReac Type Severity Reaction Status Date / Time canagliflozin [Invokana] Allergy Unknown rash Verified 07/29/22 00:03 liraglutide Allergy Unknown rash Verified 07/29/22 00:03 animals Allergy Unknown rash Uncoded 07/29/22 00:03 Pt states no known food Allergy Unknown Unknown Uncoded 07/29/22 00:03 allerg Active Medications: Current Medications Acetaminophen (Acetaminophen 325 Mg Tablet) 650 mg PO Q6H PRN PRN Reason: Pain, Mild (Pain Scale 1-3) Albuterol/Ipratropium (Albuterol/Iprat 2.5/0.5mg 3 Ml Ampul.Neb) 3 ml INHALE RQ4H PRN PRN Reason: Shortness of Breath/Wheezing Amitriptyline HCl (Amitriptyline Hcl 25 Mg Tablet) 25 mg PO BEDTIME [facility] Amlodipine Besylate (Amlodipine Besylate 10 Mg Tablet) 10 mg PO DAILY [facility]; Protocol Atorvastatin Calcium (Atorvastatin Calcium 80 Mg Tablet) 80 mg PO BEDTIME [facility] Dextrose (Dextrose 50 % 25 Gm/50 Ml Syringe) 25 gm IVPUSH Q15M PRN; Protocol PRN Reason: per Hypoglycemia Standing Ord. Enoxaparin Sodium (Enoxaparin Sodium 40 Mg/0.4 Ml Syringe) 40 mg SUBCUT Q24H [facility] Last Admin: 07/29/22 02:54 Dose: 40 mg Fluticasone/Vilanterol (Fluticasone/Vilanterol 200/25 Blst.W.Dev) 1 puff INHALE DAILY [facility] Last Admin: 07/29/22 08:28 Dose: Not Given Glucose (Glucose Gel 15 Gm Gel..Gram.) 15 gm PO Q15M PRN; Protocol PRN Reason: per Hypoglycemia Standing Ord. Hydrochlorothiazide (Hydrochlorothiazide 25 Mg Tablet) 25 mg PO DAILY [facility] Insulin Glargine (Insulin Glargine,Hum.Rec.Anlog 100 Unit/Ml 10 Ml Vial) 10 unit SUBCUT BEDTIME [facility] Insulin Human Lispro (Insulin Lispro 100 Unit/Ml 3 Ml Vial) 0 unit SUBCUT QIDACHS [facility]; Protocol Last Admin: 07/29/22 08:39 Dose: 4 unit Levalbuterol HCl (Levalbuterol Hcl 1.25 Mg/0.5 Ml Vial.Neb) 1.25 mg INHALE RQ4H WHILE AWAKE [facility] Last Admin: 07/29/22 08:26 Dose: 1.25 mg Loratadine (Loratadine 10 Mg Tablet) 10 mg PO DAILY [facility] Melatonin (Melatonin 3 Mg Tablet) 6 mg PO BEDTIME PRN PRN Reason: Insomnia Methylprednisolone Sodium Succinate (Methylprednisolone Sod Succ 40 Mg/Ml Vial) 40 mg IVPUSH Q8H [facility] Last Admin: 07/29/22 02:55 Dose: Not Given Montelukast Sodium (Montelukast Sodium 10 Mg Tablet) 10 mg PO DAILY [facility] Senna (Sennosides 8.6 Mg Tablet) 17.2 mg PO BEDTIME PRN PRN Reason: Constipation Sodium Chloride (0.9 % Sodium Chloride Flush 3 Ml Syringe) 3 ml IVFLUSH QSHIFT [facility] Valsartan (Valsartan 160 Mg Tablet) 160 mg PO DAILY [facility] Home Medications Medication Instructions Recorded Confirmed Last Taken Type amlodipine 10 mg tablet 10 mg PO DAILY 12/12/20 07/29/22 1 Day Ago History ~12/30/20 telmisartan 80 1 tab PO DAILY 12/12/20 07/29/22 Unknown History mg-hydrochlorothiazide 25 mg tablet montelukast 10 mg tablet 10 mg PO DAILY 11/26/21 07/29/22 Unknown History amitriptyline 25 mg tablet 1 tab PO BEDTIME 07/14/22 07/29/22 Unknown History naproxen 500 mg tablet 1 tab PO BID 07/14/22 07/29/22 Unknown History empagliflozin 25 mg tablet 1 tab PO DAILY 07/29/22 07/29/22 Unknown History (Jardiance) metformin 1,000 mg tablet 1 tab PO BID 07/29/22 07/29/22 Unknown History Physical Exam Vital Signs: Vital Signs: Last Vital Signs Temp 97.7 F 07/29/22 07:47 Pulse 97 07/29/22 08:29 Resp 18 07/29/22 08:29 BP 113/80 07/29/22 07:47 Pulse Ox 95 07/29/22 07:47 O2 Del Method 07/29/22 07:47 O2 Flow Rate 2 07/29/22 07:47 BMI result Body Mass Index 39.2 Const: General: comfortable (But has frequent cough during conversation), no acute distress, alert and awake Orientation/consciousness: patient oriented x3 HEENT: Head: Yes normal to inspection General nose exam: No nasal polyps present and No nasal discharge present Face and sinus: Yes sinuses nontender Mouth: oropharynx normal Throat: Yes posterior oropharynx normal Eyes: General: appearance normal, both eyes and all related structures Neck: Neck: Yes normal visual inspection, Yes no lymphadenopathy, Yes trachea midline and Yes no JVD Thyroid: Thyroid normal Chest: Chest palpation & inspection: normal inspection of the chest, normal palpation of entire chest wall and no tenderness Resp: Other: Percussion note not perceptible because of thick chest wall, Breath sounds are relatively distant. She does have scattered bilateral inspiratory and expiratory wheezes. Cardio: Palpation: normal PMI Rate: regular rate Rhythm: regular rhythm Heart sounds: no gallops and no murmurs Peripheral pulses: Peripheral pulses 2+ throughout GI: Palpation (GI): Soft to palpation, nontender, No hepatosplenomegaly present, no masses and Other GI palpation findings present (Abdomen moderately obese) Auscultation: normal bowel sounds Back/Spine/Pelvis: Thoracic/Lumbar Spine: thoracic and lumbar spine normal to inspection Skin: General skin exam: no rashes or lesions noted Neuro: General: patient oriented x3 and no focal motor deficits Cranial nerves: Yes CN's II-XII intact bilaterally Extrem: General: Yes normal to inspection, Yes no clubbing, cyanosis or edema and Yes no calf tenderness Psych: Appearance: grossly normal and well kempt Speech and movement: Normal speech and movement present Results Laboratory Findings CBC and BMP: 07/29/22 08:05 07/29/22 08:05 Abnormal lab findings: Abnormal Labs 07/29/22 07/29/22 07/29/22 00:12 00:59 00:59 WBC 15.9 H MCH 26.6 L Plt Count 405 H MPV Immature Gran % (Auto) 0.5 H Neut % (Auto) Lymph % (Auto) [place] % (Auto) Eos % (Auto) 4.3 H Lymph # (Auto) Eos # (Auto) 0.7 H Abs Immat Gran (auto) 0.08 H Absolute Neuts (auto) 10.5 H Chloride POC Glucose 271 H Random Glucose 304 H 07/29/22 07/29/22 07/29/22 06:04 08:05 08:05 WBC 12.2 H MCH 26.6 L Plt Count MPV 9.1 L Immature Gran % (Auto) 0.5 H Neut % (Auto) 90.3 H Lymph % (Auto) 8.2 L [place] % (Auto) 0.8 L Eos % (Auto) Lymph # (Auto) 1.0 L Eos # (Auto) Abs Immat Gran (auto) 0.06 H Absolute Neuts (auto) 11.0 H Chloride 109 H POC Glucose 233 H Random Glucose 232 H Diagnostic Findings Chest x-ray: report reviewed Assessment and Plan (1) Asthma with acute exacerbation: Status: Acute (2) Diabetic 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 with type 2 diabetes mellitus: Status: Acute (3) Eosinophilia: Status: Acute Plan This 46 years old, grossly obese with the features of obstructive sleep apnea, She is having recurrent exacerbations of bronchial asthma. She is steroids dependent but steroids causing hyper glycemia, and worsening her diabetic control. At present we do need to treat her with IV Solu-Medrol for 1 or 2 days to bring her symptoms under control, and then she should be on says short course of prednisone. After she complete the short course of prednisone she may be kept on a small dose like prednisone 5 mg, for a few weeks. I will add azithromycin 250 mg daily as an anti-inflammatory agent, if she can tolerated well. The next step in her management is going to be Biologic agents. She has mild eosinophilia ( 4.3 ) absolute count 0.7, IgE level checked back in December was high. She would need to have IgE level repeated and also check for use in a Purnima of when she is off prednisone. If she still has eosinophilia I think she would be candidate for starting on biologic treatment. This can be done as outpatient, and after discharge she should be followed up regularly in the Pulmonary office. Procedures Date of Service Date of Service: 07/29/22
[2022-07-29] MEDS: Valsartan 160 MG TABLET PO (09:48)
[2022-07-29] MEDS: Montelukast Sodium 10 MG TABLET PO (09:49)
[2022-07-29] MEDS: amLODIPine Besylate 10 MG TABLET PO (09:49)
[2022-07-29] MEDS: Loratadine 10 MG TABLET PO (09:49)
[2022-07-29] MEDS: methylPREDNISolone Sod Succ 40 MG/ML VIAL IVPUSH ×2 (09:50→18:34)
[2022-07-29] MEDS: hydroCHLOROthiazide 25 MG TABLET PO (09:50)
[2022-07-29] MEDS: 0.9 % Sodium Chloride Flush 3 ML SYRINGE IVFLUSH ×2 (09:51→16:20)
--- NOTE | 2022-07-29 10:42 | PC.NURSE ---
patient a/ox4 . pearrla . heart rate regular at 90 . wheezes noted throughout upper airway , rt at bedside giving patient charles treatments . breathing is unlabored . patient on 2l via nasal canulla . reports 0/10 pain level . skin pink warm and dry . abdomen soft non tender or distended . positive bowel sounds though out . patient reports improvement in breathing since coming to ED . Daughter at bedside , daughter is developmentally delayed . Family and patient aware of plan of care .
[2022-07-29] MEDS: Azithromycin 250 MG TABLET PO (10:43)
[2022-07-29 12:07] LABS: Glucose, Whole Blood 262 mg/dL (60-115)
--- NOTE | 2022-07-29 12:32 | MHC.CM.PN ---
met with pt in ed pt is working and independent cm intervention is not indicated
--- NOTE | 2022-07-29 15:26 | PM.EVENT ---
Event Note Date of Service: 07/29/22 Event Note: Seen/examined, admission note from today, labs, meds revieweed. exam: still very wheezy, will continue current treatment and likely dc tomorrow
[2022-07-29 18:24] LABS: Glucose, Whole Blood 199 mg/dL (60-115)
[2022-07-29] MEDS: Insulin Glargine,Hum.rec.anlog 100 UNIT/ML 10 ML VIAL 10 UNIT SUBCUT (20:57)
[2022-07-29] MEDS: Amitriptyline HCl 25 MG TABLET PO (20:57)
[2022-07-29] MEDS: Atorvastatin Calcium 80 MG TABLET PO (20:57)
[2022-07-29 21:35] LABS: Glucose, Whole Blood 404 mg/dL (60-115)
[2022-07-30] MEDS: 0.9 % Sodium Chloride Flush 3 ML SYRINGE IVFLUSH ×2 (02:46→07:31)
[2022-07-30] MEDS: Enoxaparin Sodium 40 MG/0.4 ML SYRINGE SUBCUT (02:46)
[2022-07-30] MEDS: methylPREDNISolone Sod Succ 40 MG/ML VIAL IVPUSH ×2 (02:46→09:04)
[2022-07-30 02:51] VITALS: BP 117/78; PULSE 90; RESP 16; O2SAT 97
[2022-07-30 03:40] VITALS: BP 111/69; PULSE 88; RESP 15; TEMP 36.7; O2SAT 98
[2022-07-30 07:12] LABS: Glucose, Whole Blood 229 mg/dL (60-115)
[2022-07-30] MEDS: Insulin Lispro 100 UNIT/ML 3 ML VIAL SUBCUT (07:31)
[2022-07-30 07:37] VITALS: BP 114/63; PULSE 87; RESP 20; O2SAT 94
--- NOTE | 2022-07-30 07:59 | P.CDIC_ITS ---
CDI Concurrent Query Documentation Clarification: PHYSICIAN'S DOCUMENTATION REQUEST Date of Query: 07/30/22 0800 Patient Name: Vonnie Melchor Admit Date: 07/29/22 Dear Doctor, Please review the following and provide your response in the progress notes. Clinical Indicators: The diagnosis of asthma was documented in the record on 07/29/22. Additional clinical indicators from the record include: Risk Factors/Clinical Indicators/Treatments per H&P: Acute asthma exacerbation: Patient mentioned that she was intubated once in the past because of acute asthma exacerbation before COVID. Continue Solu-Medrol IV Nebulizations standing and p.r.n. Supplemental oxygen p.r.n. Pulmonology consult Based on the above, please clarify in the Progress Notes further specificity regarding the type and acuity of the asthma: Type: * Mild intermittent - less than 2x/week * Mild persistent - more than 2x/week but not daily * Moderate persistent - daily and may restrict physical activity * Severe persistent - throughout the day with frequent attacks, limiting activities * Exercise induced * Other ? please specify * Unable to determine Acuity: * With acute exacerbation * With status asthmaticus * Uncomplicated * Unable to determine Use of terms such as suspected, likely, concern for, or probable (associated with a specific diagnosis that is being evaluated, monitored, or treated as if it exists) are acceptable and can be coded in the inpatient setting, when documented at the time of discharge. Thank you, Vonnie Rodgers RN Extension: [phone] Please use your independent medical judgment in providing your response. THIS QUERY IS PART OF THE PERMANENT MEDICAL RECORD Provider Response: Other Other Diagnosis: moderate peristent asthma with acute exacerbation
[2022-07-30 08:20] VITALS: PULSE 89; RESP 18; O2SAT 96
[2022-07-30] MEDS: Montelukast Sodium 10 MG TABLET PO (09:03)
[2022-07-30] MEDS: Loratadine 10 MG TABLET PO (09:03)
[2022-07-30] MEDS: Azithromycin 250 MG TABLET PO (09:03)
[2022-07-30] MEDS: amLODIPine Besylate 10 MG TABLET PO (09:03)
[2022-07-30] MEDS: hydroCHLOROthiazide 25 MG TABLET PO (09:03)
--- NOTE | 2022-07-30 09:08 | PC.NURSE ---
pt alert and oriented, skin pwd, respirations even and unlabored, ls slightly diminished and expiatory wheezing on the bases, pt still on 2l via nasal cannual dr marks at bedside, possible d/c home today depending if pt does good with out oxygen and ambulation trial
--- NOTE | 2022-07-30 09:46 | P.DS_ITS ---
DS: Providers Provider Date of Service: 07/30/22 Date of admission: 07/29/22 01:49 Primary care physician: Unknown Physician Consults: 07/29/22 03:02 Consult to Pulmonology Routine Consulting Provider: Juan Schultz Reason for consultation: Rec Asthma exacerbation DS: Diagnosis Discharge Diagnosis (1) Asthma with acute exacerbation: Status: Acute (2) Diabetic 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 with type 2 diabetes mellitus: Status: Acute (3) Eosinophilia: Status: Acute DS: Summary Hospital Course Hospital Course: Chief Complaint: SOB ?46-year-old female with a past medical history of hypertension, hyperlipidemia, diabetes, asthma-intubated in the past, multiple allergies, vitamin-D deficiency, neuropathy, RADHA presented to the hospital today with a chief complaint of shortness of breath.? Patient mentioned that she was recently admitted to the hospital for acute asthma exacerbation, discharged on prednisone taper which she finished yesterday and today she started to feel short of breath which has acutely worsened since decided to come to the ER for further evaluation.? Mentions that her breathing slightly better of fever the treatment in the ER.? Denies any fever chills.? Reports cough without any sputum production.? Denies any chest pain or palpitations.? Mentions that she has multiple allergies and unsure of any triggers specifically at home.? Review of all other systems is negative except mentioned above ER course: Per ER team patient on presentation noted to be in mild respiratory distress; given nebulizations and steroids with improvement in respiratory status.? Placed on supplemental oxygen.? Admitted to the hospital for further management. Hospital course: Patient was admitted for close monitoring of asthma and treatment with IV steroid, bronchodilators by Neb scheduled and PRN, by the following day of hospitalization she was feeling much better, with no respiraotry distress and no wheeze on exam. 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 After she complete the short course of prednisone she may be kept on a small dose like prednisone 5 mg, for a few weeks. I will add azithromycin 250 mg daily as an anti-inflammatory agent, if she can tolerated well. The next step in her management is going to be Biologic agents. She has mild eosinophilia ( 4.3 ) absolute count 0.7, IgE level checked back in December was high. She would need to have IgE level repeated and also check for use in a Purnima of when she is off prednisone. If she still has eosinophilia I think she would be candidate for starting on biologic treatment.? This can be done as outpatient, and after discharge she should be followed up regularly? in the Pulmonary office Time Spent with Patient Time attestation: Total time spent providing and/or coordinating discharge services: Discharge coordination time: Greater than 30 minutes Quality: Safe Use of Opioids Does Pt have an Active Cancer Diagnosis on the Problem List?: No Quality: Stroke Does the patient have a stroke diagnosis?: No Physical Exam Vital Signs: Vital Signs: Last Vital Signs Temp 98.0 F 07/30/22 03:40 Pulse 89 07/30/22 08:20 Resp 18 07/30/22 08:20 BP 114/63 07/30/22 07:37 Pulse Ox 94 07/30/22 07:37 O2 Del Method 07/30/22 07:37 O2 Flow Rate 2 07/30/22 07:37 BMI result Body Mass Index 39.2 DS: Data Data Completed and Pending Labs on day of discharge: Laboratory Results - last 24 hr 07/29/22 07/29/22 07/29/22 12:01 18:17 21:08 POC Glucose 262 H 199 H 404 H* 07/30/22 07:05 POC Glucose 229 H Discharge Plan Discharge Anticipated Discharge Date/Time: 07/30/22 09:37 Patient Disposition: Home, Self-Care Discharge Diagnosis: Acute exacerbation of asthma Referrals: Juan Schultz MD [Physician] - 2 Weeks Physician,Unknown J [Physician] - 1 Week Discharge Medications: New prednisone 20 mg tablet 40 mg PO DAILY Qty: 8 0RF prednisone 5 mg tablet 5 mg PO DAILY Qty: 14 0RF azithromycin 250 mg Tablet 250 mg PO Q24H Qty: 30 0RF Continued (DME) Contour Next Test Strips Strip See Rx Instructions .ROUTE .MEDSUPPLY Qty: 100 6RF Rx Instructions: 6 times a day Breo Ellipta 200-25 mcg/dose blister with device 1 inh inhalation DAILY 30 Days Qty: 1 6RF Trulicity 1.5 mg/0.5 mL pen injector 1.5 mg subcut QWEEK Qty: 2 5RF Rx Instructions: pt takes it on Saturdays (DME) AeroEclipse II Nebulizer Misc See Rx Instructions .ROUTE .MEDSUPPLY Qty: 1 0RF Rx Instructions: As directed albuterol sulfate 90 mcg/actuation HFA aerosol inhaler 1 inh inhalation QID PRN (Reason: shortness of breath or wheezing) Qty: 8.5 0RF (DME) Compact Compressor Nebulizer Mis See Rx Instructions .ROUTE .MEDSUPPLY Qty: 1 0RF Rx Instructions: As directed cetirizine [Zyrtec] 10 mg tablet 10 mg PO DAILY Qty: 14 0RF amitriptyline 25 mg tablet 1 tab PO BEDTIME naproxen 500 mg tablet 1 tab PO BID metformin 1,000 mg tablet 1 tab PO BID Jardiance 25 mg tablet 1 tab PO DAILY (DME) blood-glucose meter [FreeStyle Lite Meter] Kit See Rx Instructions .ROUTE .MEDSUPPLY Qty: 1 0RF Rx Instructions: As directed (DME) lancets [FreeStyle Lancets] 28 gauge misc See Rx Instructions .ROUTE .MEDSUPPLY Qty: 200 1RF Rx Instructions: 5x/day montelukast 10 mg tablet 10 mg PO DAILY telmisartan-hydrochlorothiazid 80-25 mg tablet 1 tab PO DAILY amlodipine 10 mg tablet 10 mg PO DAILY rosuvastatin 40 mg tablet 40 mg PO BEDTIME 90 Days Qty: 90 2RF (DME) Omnipod Dash Pods (Gen 4) Cartridge See Rx Instructions subcut Q3D Qty: 15 11RF Rx Instructions: As directed change every 2 day Discharge Orders: Discharge Order (Routine); Ordered 07/30/22 Ordered By: Mehdi Alexandra Diet: Diabetic diet Activity on Discharge: As tolerated Stand Alone Forms: Patient Portal Discharge page Care Plan Goals: Full recovery from asthma exacerbation and limiting hospitalization Health Concerns: asthma exacerbation Plan of Treatment: Take prednisone as directed and follow up with your Doctor in a week, also follow up with your lung Doctor take prednisone 40 mg daily for 4 days, then take 5 mg daily, follow up with Dr. Schultz or Joshua in the office Assessment: As above Discharge Date/Time: 07/30/22 11:02
--- NOTE | 2022-07-30 10:20 | PC.NURSE ---
pt maintaining spo2 94% ra while walking.
[2022-07-30] MEDS: Valsartan 160 MG TABLET PO (10:26)
[2022-07-30 10:31] VITALS: BP 130/94; PULSE 74; RESP 15; O2SAT 94
--- NOTE | 2022-07-30 10:34 | MHC.CM.PN ---
PT TO DC HOME TODAY WITH NO SERVICES
[2022-07-30 10:38] VITALS: PULSE 91; RESP 18; O2SAT 95
--- NOTE | 2022-07-30 11:14 | MHC.CM.PN ---
pt dcd home no skilled services ordered by
[2022-07-31 22:07] LABS: Immunoglobulin E 332 kU/L (<OR=114)
== END 2022-07-30 11:02 | disposition home or self-care (01) | DRG 141 ==
LOC: HO.ED 07-29 06:56 → HO.EDOVER 07-29 07:09 → HO.IMC 07-30 08:39 → HO.EDOVER 07-30 09:26
PROVIDERS: Internal Medicine; Admitting Provider Hospitalist; Emergency Provider Internal Medicine; PCP Internal Medicine; Visit Provider Internal Medicine
DX: J45.41 Moderate persistent asthma with (acute) exacerbation (principal); E11.42 Type 2 diabetes mellitus with diabetic 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; D72.10 Eosinophilia, unspecified; E78.5 Hyperlipidemia, unspecified; E66.9 Obesity, unspecified; G47.33 Obstructive sleep apnea (adult) (pediatric); Z20.822 Contact with and (suspected) exposure to COVID-19; Z68.39 Body mass index [BMI] 39.0-39.9, adult; Z88.8 Allergy status to other drugs, medicaments and biological substances; Z79.51 Long term (current) use of inhaled steroids; Z79.52 Long term (current) use of systemic steroids; Z79.84 Long term (current) use of oral hypoglycemic drugs; Z79.899 Other long term (current) drug therapy
CPT/HCPCS: 36415; 71045; 80048; 82785; 82947; 85025; 87635; 94640; 99285; J1100; J1650; J2920; J3475

== ENCOUNTER 2022-08-06 06:44 | Outpatient (REF) | payer OTHER, SELFPAY ==
[2022-08-06 07:55] LABS: Creatinine Urine 99.45 mg/dL
[2022-08-06 07:55] LABS: Alanine Aminotransferase 28 U/L (0-31); Alkaline Phosphatase 84 U/L (39-117); Anion Gap 17 (12-20); Aspartate Amino Transferase 11 U/L (5-31); Bilirubin Total 1.1 mg/dL (0.0-1.0); Blood Urea Nitrogen 8 mg/dL (9-16); Calcium 9.2 mg/dL (8.4-10.2); Carbon Dioxide 23 mmol/L (22-29); Chloride 103 mmol/L (96-108); Cholesterol 199 mg/dL; Estimated Glomerular Filt Rate > 60; Glucose Fasting 194 mg/dL (60-99); HDL Cholesterol 56 mg/dL; LDL Cholesterol Calculated 116 mg/dl; Potassium 4.2 mmol/L (3.3-5.1); Sodium 139 mmol/L (135-145); Total Protein 6.8 g/dL (6.5-8.0); Triglycerides 135 mg/dL
[2022-08-06 08:15] LABS: Vitamin D 25-OH Total 18.9 ng/mL (>30)
== END 2022-08-06 06:45 | disposition home or self-care (01) ==
LOC: HO.LAB 06:44
PROVIDERS: Absent Provider Nurse Practitioner Gerontology; PCP Internal Medicine; Visit Provider Internal Medicine Endocrinology, Diabetes & Metabolism
DX: E11.65 Type 2 diabetes mellitus with hyperglycemia (principal); E55.9 Vitamin D deficiency, unspecified
CPT/HCPCS: 36415; 80053; 80061; 82043; 82306

== ENCOUNTER → 2022-08-08 08:04 | Outpatient (BNVA) | payer OTHER, SELFPAY | PROVIDERS: PCP Internal Medicine; Visit Provider Internal Medicine Endocrinology, Diabetes & Metabolism | DX: E11.65 Type 2 diabetes mellitus with hyperglycemia (principal); E55.9 Vitamin D deficiency, unspecified | CPT/HCPCS: 82947; 83036 ==

== ENCOUNTER 2022-08-09 16:46 | Inpatient (IN) | payer OTHER, SELFPAY ==
[2022-08-09] VITALS (10 sets, daily range): BP systolic 124–152; BP diastolic 65–88; PULSE 92–118; RESP 11–26; TEMP 36.6–37.1; O2SAT 82–100; BMI 42.0
--- NOTE | ~2022-08-09 | XR_ITS ---
EXAMINATION: XR CHEST CLINICAL INFORMATION: Shortness of breath COMPARISON: Chest x-ray 07/29/2022 TECHNIQUE: Frontal view of the chest was obtained. FINDINGS: Minimal streaky retrocardiac opacity, likely minimal subsegmental atelectasis. No consolidation, pleural effusion, or pneumothorax identified. Normal cardiomediastinal silhouette. No evidence of pulmonary edema. No acute osseous injury. XR/XR chest 1V IMPRESSION: No acute pulmonary process.
--- NOTE | 2022-08-09 16:54 | ECG_ITS ---
Test Reason : chest pain Blood Pressure : / mmHG Vent. Rate : 116 BPM Atrial Rate : 116 BPM P-R Int : 128 ms QRS Dur : 098 ms QT Int : 348 ms P-R-T Axes : 060 064 029 degrees QTc Int : 483 ms Sinus tachycardia Nonspecific ST abnormality Abnormal ECG When compared with ECG of 19-JUL-2022 05:57, Nonspecific ST abnormality is now Present Heart rate has increased Referred By: Rachel Pollock Electronically Signed By:IVETH ELLIOTT
[2022-08-09] MEDS: Albuterol Sulfate 7.5 MG, Albuterol Sulfate (0.083%) 2.5 MG 10 MG INHALE ×2 (16:59→20:03)
[2022-08-09 17:28] LABS: MANUAL DIFF FLAG NO
[2022-08-09 17:30] LABS: Basophils Absolute Auto 0.1 X10*3/uL (0.0-0.2); Basophils Percent Auto 0.5 % (0-2); Eosinophils Absolute Auto 0.5 X10*3/uL (0.0-0.4); Eosinophils Percent Auto 3.2 % (0-4); Hematocrit 44.2 % (37.0-47.0); Hemoglobin 14.6 g/dl (12.0-16.0); Imm Gran Abs Auto 0.07 X10*3/uL (0.00-0.03); Imm Gran Pct Auto 0.5 % (0.0-0.4); Lymphocytes Absolute Auto 4.2 X10*3/uL (1.2-4.9); Mean Corpuscular Hemoglobin 26.9 pg (27.0-33.0); Mean Corpuscular Volume 81.5 fL (80.0-98.0); Mean Platelet Volume 9.7 fL (9.4-12.3); Monocytes Absolute Auto 0.9 X10*3/uL (0.1-1.2); Monocytes Percent Auto 5.6 % (2-11); Neutrophils Absolute Auto 9.8 x10*3/uL (2.0-8.3); Neutrophils Percent Auto 63.2 % (45-73); Platelet Count 324 X10*3/uL (160-400); Red Blood Count 5.42 X10*6/uL (4.20-5.50); Red Cell Distribution Width 14.5 % (11.0-16.0); White Blood Count 15.5 X10*3/uL (4.8-10.8)
--- NOTE | 2022-08-09 17:31 | ED.ASTHMA ---
HPI - Asthma General Chief Complaint: Asthma Stated Complaint: DIFFICULTY BREATHING Time Seen by Provider: 08/09/22 16:53 Source: patient and EMS Mode of arrival: EMS History of Present Illness HPI Narrative: 46-year-old female with history of diabetes and asthma presents via EMS for acute exacerbation and reporting shortness of breath, EMS noted that her oxygenation was 82% and gave patient steroids as well as albuterol and route and patient is currently oxygenating well at 93%. Denies fever, chills, GI or symptoms. Related Data Home Medications Medication Instructions Recorded Confirmed amlodipine 10 mg tablet 10 mg PO DAILY 12/12/20 07/29/22 telmisartan 80 1 tab PO DAILY 12/12/20 07/29/22 mg-hydrochlorothiazide 25 mg tablet montelukast 10 mg tablet 10 mg PO DAILY 11/26/21 07/29/22 amitriptyline 25 mg tablet 1 tab PO BEDTIME 07/14/22 07/29/22 naproxen 500 mg tablet 1 tab PO BID 07/14/22 07/29/22 empagliflozin 25 mg tablet 1 tab PO DAILY 07/29/22 07/29/22 (Jardiance) metformin 1,000 mg tablet 1 tab PO BID 07/29/22 07/29/22 albuterol sulfate 2.5 mg/3 mL mg inhalation BID 08/08/22 (0.083 %) solution for nebulization blood sugar diagnostic (FreeStyle 08/08/22 Lite Strips) blood-glucose meter,continuous 08/08/22 (Dexcom G6 Roll Hand misc) blood-glucose sensor (Dexcom G6 08/08/22 Sensor device) blood-glucose transmitter (Dexcom 08/08/22 G6 Transmitter device) tirzepatide 2.5 mg/0.5 mL mg subcut 08/08/22 subcutaneous pen injector ([place]) Previous Rx's Medication Instructions Recorded albuterol sulfate 90 mcg/actuation 1 inh inhalation QID PRN shortness 12/22/20 aerosol inhaler of breath or wheezing #8.5 grams nebulizers (AeroEclipse II #1 ea 12/22/20 Nebulizer) nebulizers (Compact Compressor #1 ea 12/31/20 Nebulizer) rosuvastatin 40 mg tablet 40 mg PO BEDTIME 90 days #90 tabs 03/13/21 cetirizine 10 mg tablet (Zyrtec) 10 mg PO DAILY #14 tabs 06/29/21 blood-glucose meter (FreeStyle #1 ea 07/19/21 Lite Meter kit) lancets 28 gauge (FreeStyle #200 ea 07/19/21 Lancets) fluticasone furoate 200 1 inh inhalation DAILY 30 days #1 03/05/22 mcg-vilanterol 25 mcg/dose ea inhalation powder (Breo Ellipta) azithromycin 250 mg tablet 250 mg PO Q24H #30 tabs 07/30/22 prednisone 20 mg tablet 40 mg PO DAILY #8 tabs 07/30/22 prednisone 5 mg tablet 5 mg PO DAILY #14 tabs 07/30/22 fluticasone fur. 100 mcg-umeclid 1 inh inhalation DAILY 30 days #1 08/04/22 62.5 mcg-vilant 25 mcg ea inhalat.powder (Trelegy Ellipta) cholecalciferol (vitamin D3) 50 50 mcg PO DAILY #30 caps 08/08/22 mcg (2,000 unit) capsule ezetimibe 10 mg tablet (Zetia) 10 mg PO DAILY #30 tabs 08/08/22 insulin lispro 100 unit/mL 10 unit (0.1 mL) subcut TID #15 mL 08/08/22 subcutaneous pen (Humalog KwikPen (U-100) Insulin) Allergies Allergy/AdvReac Type Severity Reaction Status Date / Time canagliflozin [Invokana] Allergy Unknown rash Verified 08/09/22 16:54 liraglutide Allergy Unknown rash Verified 08/09/22 16:54 animals Allergy Unknown rash Uncoded 08/08/22 08:13 Pt states no known food Allergy Unknown Unknown Uncoded 08/08/22 08:13 allerg Review of Systems Review of Systems: Pertinent positives and negatives as stated in HPI 10 point review of systems is otherwise negative. [facility] Past Medical History Source: nursing notes reviewed Medical History (Updated 08/09/22 @ 20:13 by Rachel Pollock MD) Asthma Diabetes Diabetes type 2, uncontrolled Diabetic 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 with type 2 diabetes mellitus Ectopic Eosinophilia Hyperlipidemia Hypertension [facility] (current) use of insulin Obesity due to excess calories Vitamin D deficiency Surgical History History of surgical procedure on mouth Hx of ectopic Family History Family History Father Diabetes mellitus Mother Diabetes mellitus Ovarian cancer Social History Social History Household Members: Spouse Housing: House Do you presently have visiting nurse or other home services: No Alcohol intake: never Patient Tobacco Use Status: Never used Tobacco Use of substances other than those prescribed or required for medical reasons: No Advance Directives: Yes Advance Directives on File: Yes Advance Directives Date on File: 07/15/22 Patient : No service: No Current occupational status: employed Physical Exam Vital Signs: Vital Signs: Last Vital Signs Temp 98.7 F 08/09/22 19:13 Pulse 92 08/09/22 20:07 Resp 11 L 08/09/22 20:07 BP 124/82 08/09/22 19:13 Pulse Ox 95 08/09/22 19:13 O2 Del Method 08/09/22 19:13 Oxygen Flow Rate 4 08/09/22 16:54 BMI result Body Mass Index 42.0 VITAL SIGNS: Reviewed. GENERAL: Elevated BMI Well developed, well nourished, in moderate distress. HEAD: Normocephalic/atraumatic EYES: PERRLA, EOMI EARS: Ext canals without abnormality, TMs non-bulging and non-erythematous NOSE: Nares patent bilateral OROPHARYNX: no oral lesions noted, posterior pharynx clear and non-erythematous without noted tonsillar enlargement/erythema/exudates NECK: Supple, no adenopathy LUNGS: Bilateral decreased breath sounds with significant expiratory wheeze, mild tachypnea, CPAP in place. SpO2<98> CARDIOVASCULAR: Regular rate and rhythm without noted murmurs, no JVD or lower extremity edema. ABDOMEN: Soft, non-tender, non-distended with bowel sounds. MUSCULOSKELETAL: No tenderness, deformities, or effusions noted on gross inspection. EXTREMITIES: No cyanosis, clubbing or edema. SKIN: Inspection of the skin reveals no rashes NEUROLOGIC: Alert and oriented x 4. Strength and sensation to light touch were grossly intact x 4. Course Course Course Narrative: 46-year-old female with history and clinical presentation consistent with asthma exacerbation, this is not a sepsis scenario. Leukocytosis secondary to steroids, patient is afebrile and elevated heart rate and respiratory rate are secondary to albuterol in combination with underlying asthma exacerbation. Review of all investigations consistent with acute asthma exacerbation, on re-evaluation patient has improved. I discussed case with inpatient hospitalist who accepts admission. MDM - Asthma Lab Data Result diagrams: 08/09/22 17:24 08/09/22 17:24 Labs: Lab Results 08/09/22 08/09/22 08/09/22 Range/Units 17:24 17:24 17:28 WBC 15.5 H (4.8-10.8) X10*3/uL RBC 5.42 (4.20-5.50) X10*6/uL Hgb 14.6 (12.0-16.0) g/dl Hct 44.2 (37.0-47.0) % MCV 81.5 (80.0-98.0) fL MCH 26.9 L (27.0-33.0) pg MCHC 33.0 (31.0-35.0) g/dl RDW 14.5 (11.0-16.0) % Plt Count 324 (160-400) X10*3/uL MPV 9.7 (9.4-12.3) fL Immature Gran % (Auto) 0.5 H (0.0-0.4) % Neut % (Auto) 63.2 (45-73) % Lymph % (Auto) 27.0 (20-40) % [place] % (Auto) 5.6 (2-11) % Eos % (Auto) 3.2 (0-4) % Baso % (Auto) 0.5 (0-2) % Lymph # (Auto) 4.2 (1.2-4.9) X10*3/uL [place] # (Auto) 0.9 (0.1-1.2) X10*3/uL Eos # (Auto) 0.5 H (0.0-0.4) X10*3/uL Baso # (Auto) 0.1 (0.0-0.2) X10*3/uL Abs Immat Gran (auto) 0.07 H (0.00-0.03) X10*3/uL Absolute Neuts (auto) 9.8 H (2.0-8.3) x10*3/uL Absolute Nucleated RBC 0.000 (0.0-0.012) X10*3/uL Nucleated RBC % (auto) 0.0 (0.0-0.2) /100WBC VBG pH (7.32-7.43) VBG pCO2 mmHg VBG pO2 mmHg VBG HCO3 (22-26) mmol/L VBG O2 Saturation % VBG Base Excess mmol/L Sodium 142 (135-145) mmol/L Potassium 3.3 D (3.3-5.1) mmol/L Chloride 102 (96-108) mmol/L Carbon Dioxide 27 (22-29) mmol/L Anion Gap 16 (12-20) BUN 10 (9-16) mg/dL Creatinine 0.60 (0.5-1.4) mg/dL Estim Creat Clear Calc 155.0 Estimated GFR > 60 Random Glucose 189 H (60-115) mg/dL Calcium 8.9 (8.4-10.2) mg/dL Total Bilirubin 0.7 (0.0-1.0) mg/dL AST 16 D (5-31) U/L ALT 33 H (0-31) U/L Alkaline Phosphatase 79 (39-117) U/L Total Protein 6.8 (6.5-8.0) g/dL Albumin 4.1 (3.5-5.0) g/dL COVID-19 (DANK) Negative (Negative) COVID-19 Clin Com See Note 08/09/22 Range/Units 17:30 WBC (4.8-10.8) X10*3/uL RBC (4.20-5.50) X10*6/uL Hgb (12.0-16.0) g/dl Hct (37.0-47.0) % MCV (80.0-98.0) fL MCH (27.0-33.0) pg MCHC (31.0-35.0) g/dl RDW (11.0-16.0) % Plt Count (160-400) X10*3/uL MPV (9.4-12.3) fL Immature Gran % (Auto) (0.0-0.4) % Neut % (Auto) (45-73) % Lymph % (Auto) (20-40) % [place] % (Auto) (2-11) % Eos % (Auto) (0-4) % Baso % (Auto) (0-2) % Lymph # (Auto) (1.2-4.9) X10*3/uL [place] # (Auto) (0.1-1.2) X10*3/uL Eos # (Auto) (0.0-0.4) X10*3/uL Baso # (Auto) (0.0-0.2) X10*3/uL Abs Immat Gran (auto) (0.00-0.03) X10*3/uL Absolute Neuts (auto) (2.0-8.3) x10*3/uL Absolute Nucleated RBC (0.0-0.012) X10*3/uL Nucleated RBC % (auto) (0.0-0.2) /100WBC VBG pH 7.48 H (7.32-7.43) VBG pCO2 29 mmHg VBG pO2 205 mmHg VBG HCO3 22 (22-26) mmol/L VBG O2 Saturation 100.0 % VBG Base Excess 0.1 mmol/L Sodium (135-145) mmol/L Potassium (3.3-5.1) mmol/L Chloride (96-108) mmol/L Carbon Dioxide (22-29) mmol/L Anion Gap (12-20) BUN (9-16) mg/dL Creatinine (0.5-1.4) mg/dL Estim Creat Clear Calc Estimated GFR Random Glucose (60-115) mg/dL Calcium (8.4-10.2) mg/dL Total Bilirubin (0.0-1.0) mg/dL AST (5-31) U/L ALT (0-31) U/L Alkaline Phosphatase (39-117) U/L Total Protein (6.5-8.0) g/dL Albumin (3.5-5.0) g/dL COVID-19 (DANK) (Negative) COVID-19 [employer] [facility]) Com ECG Data Attestation: I personally reviewed and interpreted this ECG as follows: Prior ECG tracings: available for review Interpretation: Sinus tachycardia, HR-112, no STEMI, AR/QRS/QTC are within normal limits. Procedures EJ/Peripheral Line Arm R: Time Out Performed: No Skin Cleansed in Sterile Fashion: Yes Size (gauge): 20 IV Secured and Dressing Applied: Yes Patient Tolerated Procedure: well and no complications Additional Comments: IV was placed under ultrasound guidance. Critical Care Time Critical Care Time Critical Care Time: Yes Total Critical Care Time: 30 Attestation: I personally attest to this time spent taking care of the patient. Discharge Plan Discharge Clinical Impression: Asthma exacerbation, Diabetes, Hypoxia Patient Disposition: Admitted As Inpatient Prescriptions: No Action Breo Ellipta 200-25 mcg/dose blister with device 1 inh inhalation DAILY 30 Days Qty: 1 6RF insulin lispro [Humalog KwikPen Insulin] 100 unit/mL insulin pen 10 unit subcut TID Qty: 15 5RF (DME) AeroEclipse II Nebulizer Misc See Rx Instructions .ROUTE .MEDSUPPLY Qty: 1 0RF Rx Instructions: As directed albuterol sulfate 90 mcg/actuation HFA aerosol inhaler 1 inh inhalation QID PRN (Reason: shortness of breath or wheezing) Qty: 8.5 0RF (DME) Compact Compressor Nebulizer Misc See Rx Instructions .ROUTE .MEDSUPPLY Qty: 1 0RF Rx Instructions: As directed cetirizine [Zyrtec] 10 mg tablet 10 mg PO DAILY Qty: 14 0RF amitriptyline 25 mg tablet 1 tab PO BEDTIME naproxen 500 mg tablet 1 tab PO BID metformin 1,000 mg tablet 1 tab PO BID Jardiance 25 mg tablet 1 tab PO DAILY prednisone 20 mg tablet 40 mg PO DAILY Qty: 8 0RF prednisone 5 mg tablet 5 mg PO DAILY Qty: 14 0RF azithromycin 250 mg Tablet 250 mg PO Q24H Qty: 30 0RF (DME) blood-glucose meter [FreeStyle Lite Meter] Kit See Rx Instructions .ROUTE .MEDSUPPLY Qty: 1 0RF Rx Instructions: As directed (DME) lancets [FreeStyle Lancets] 28 gauge misc See Rx Instructions .ROUTE .MEDSUPPLY Qty: 200 1RF Rx Instructions: 5x/day montelukast 10 mg tablet 10 mg PO DAILY telmisartan-hydrochlorothiazid 80-25 mg tablet 1 tab PO DAILY amlodipine 10 mg tablet 10 mg PO DAILY rosuvastatin 40 mg tablet 40 mg PO BEDTIME 90 Days Qty: 90 2RF Mounjaro 2.5 mg/0.5 mL pen injector subcut (DME) Dexcom G6 Roll Hand Misc See Rx Instructions .Route Rx Instructions: As directed (DME) Dexcom G6 Sensor Device See Rx Instructions .Route Rx Instructions: As directed (DME) Dexcom G6 Transmitter Device See Rx Instructions .Route Rx Instructions: As directed (DME) FreeStyle Lite Strips Strip See Rx Instructions .Route Rx Instructions: As directed albuterol sulfate 2.5 mg /3 mL (0.083 %) solution for nebulization inhalation BID cholecalciferol (vitamin D3) 50 mcg (2,000 unit) capsule 50 mcg PO DAILY Qty: 30 5RF ezetimibe [Zetia] 10 mg tablet 10 mg PO DAILY Qty: 30 5RF Trelegy Ellipta 100-62.5-25 mcg blister with device 1 inh inhalation DAILY 30 Days Qty: 1 6RF
[2022-08-09 17:36] LABS: VBG Base Excess 0.1 mmol/L; VBG HCO3 22 mmol/L (22-26); VBG pCO2 29 mmHg; VBG pH 7.48 (7.32-7.43); VBG pO2 205 mmHg
[2022-08-09 17:46] LABS: Alanine Aminotransferase 33 U/L (0-31); Albumin Level 4.1 g/dL (3.5-5.0); Alkaline Phosphatase 79 U/L (39-117); Anion Gap 16 (12-20); Aspartate Amino Transferase 16 U/L (5-31); Bilirubin Total 0.7 mg/dL (0.0-1.0); Blood Urea Nitrogen 10 mg/dL (9-16); Calcium 8.9 mg/dL (8.4-10.2); Carbon Dioxide 27 mmol/L (22-29); Chloride 102 mmol/L (96-108); Estimated Glomerular Filt Rate > 60; Glucose Random 189 mg/dL (60-115); Potassium 3.3 mmol/L (3.3-5.1); Sodium 142 mmol/L (135-145); Total Protein 6.8 g/dL (6.5-8.0)
[2022-08-09 17:49] LABS: COVID-19 Test Negative (Negative)
[2022-08-09 18:15] LABS: Venous Blood Gas Refer to POC result
--- NOTE | 2022-08-09 18:36 | PC.NURSE ---
was unable to obtain iv access on this patient, provider was notified, additional nurses attempted access, provider attempted us access without gaining access, patient a&ox3, media monitor sinus tach, pt sat 97%, pt speaking in full sentences, family at bedside, call wan within reach, will continue to monitor
[2022-08-09] MEDS: methylPREDNISolone Sod Succ 125 MG/2 ML VIAL IVPUSH (19:07)
--- NOTE | 2022-08-09 19:09 | PC.NURSE ---
Pt BP is normal, slightly Tachy. Pt Dexcom glucose 257. Pt meds administered as order. Will continue to monitor.
--- NOTE | 2022-08-09 20:28 | PM.IMHP ---
History of Present Illness Date of Service: 08/09/22 Chief Complaint: Shortness of breath and wheezing This is a 46-year-old female with pertinent history of diabetes mellitus, asthma who presents to the emergency department via EMS for evaluation of shortness of breath and wheezing. Patient states she has come to the hospital about 4-5 times in the last 1 month for asthma exacerbation. She was recently admitted and discharged on 07/30 for the same. Also saw Dr. Lewis, pulmonology on 08/04. She states the symptoms started in the morning when she got out of the shower. She could not catch her breath. Took her home albuterol inhaler but that did not give any relief. She called EMS found her to be hypoxemic. She was placed on nasal cannula and brought to the ER. Patient does not use oxygen at home. States she was compliant with her home inhalers. Denies fever, chills, cough, chest discomfort, palpitations, abdominal pain, changes in urinary or bowel habits. 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 Obesity due to excess calories Vitamin D deficiency Functional capacity: independent ambulation Family History Father Diabetes mellitus Mother Diabetes mellitus Ovarian cancer Surgical History History of surgical procedure on mouth Hx of ectopic Social History Household Members: Spouse Housing: House Do you presently have visiting nurse or other home services: No Alcohol intake: never Patient Tobacco Use Status: Never used Tobacco Use of substances other than those prescribed or required for medical reasons: No Advance Directives: Yes Advance Directives on File: Yes Advance Directives Date on File: 07/15/22 Patient : No service: No Current occupational status: employed Meds Allergies Allergy/AdvReac Type Severity Reaction Status Date / Time canagliflozin [Invokana] Allergy Unknown rash Verified 08/09/22 16:54 liraglutide Allergy Unknown rash Verified 08/09/22 16:54 animals Allergy Unknown rash Uncoded 08/08/22 08:13 Pt states no known food Allergy Unknown Unknown Uncoded 08/08/22 08:13 allerg Active Medications: Current Medications Acetaminophen (Acetaminophen 325 Mg Tablet) 650 mg PO Q6H PRN PRN Reason: Pain, Mild (Pain Scale 1-3) Albuterol/Ipratropium (Albuterol/Iprat 2.5/0.5mg 3 Ml Ampul.Neb) 3 ml INHALE Q4H SIXTO Albuterol/Ipratropium (Albuterol/Iprat 2.5/0.5mg 3 Ml Ampul.Neb) 3 ml INHALE Q4H PRN PRN Reason: Wheezing Dextrose (Dextrose 50 % 25 Gm/50 Ml Syringe) 25 gm IVPUSH Q15M PRN; Protocol PRN Reason: per Hypoglycemia Standing Ord. Enoxaparin Sodium (Enoxaparin Sodium 40 Mg/0.4 Ml Syringe) 40 mg SUBCUT Q24H [facility] Glucose (Glucose Gel 15 Gm Gel..Gram.) 15 gm PO Q15M PRN; Protocol PRN Reason: per Hypoglycemia Standing Ord. Magnesium Sulfate (Magnesium Sulfate/H2o) 2 gm in 50 mls @ 25 mls/hr IV ONCE ONE Stop: 08/09/22 22:03 Insulin Human Lispro (Insulin Lispro 100 Unit/Ml 3 Ml Vial) 0 unit SUBCUT QIDACHS [facility]; Protocol Stop: 08/10/22 20:27 Melatonin (Melatonin 3 Mg Tablet) 6 mg PO BEDTIME PRN PRN Reason: Insomnia Ondansetron HCl (Ondansetron Hcl 4 Mg/2 Ml Vial) 4 mg IVPUSH Q8H PRN PRN Reason: Nausea and Vomiting Pharmacy Consult (Consult Rx Perform Med Rec) 1 each MISCELLANE ONCE PRN PRN Reason: Consult order Prednisone (Prednisone 20 Mg Tablet) 60 mg PO DAILY [facility] Sodium Chloride (0.9 % Sodium Chloride Flush 3 Ml Syringe) 3 ml IVFLUSH QSHIFT [facility] Home Medications Medication Instructions Recorded Confirmed Last Taken Type amlodipine 10 mg tablet 10 mg PO DAILY 12/12/20 07/29/22 1 Day Ago History ~12/30/20 telmisartan 80 1 tab PO DAILY 12/12/20 07/29/22 Unknown History mg-hydrochlorothiazide 25 mg tablet montelukast 10 mg tablet 10 mg PO DAILY 11/26/21 07/29/22 Unknown History amitriptyline 25 mg tablet 1 tab PO BEDTIME 07/14/22 07/29/22 Unknown History naproxen 500 mg tablet 1 tab PO BID 07/14/22 07/29/22 Unknown History empagliflozin 25 mg tablet 1 tab PO DAILY 07/29/22 07/29/22 Unknown History (Jardiance) metformin 1,000 mg tablet 1 tab PO BID 07/29/22 07/29/22 Unknown History albuterol sulfate 2.5 mg/3 mL mg inhalation BID 08/08/22 Unknown History (0.083 %) solution for nebulization blood sugar diagnostic (FreeStyle 08/08/22 Unknown History Lite Strips) blood-glucose meter,continuous 08/08/22 Unknown History (Dexcom G6 Correctional Therapy Teacher misc) blood-glucose sensor (Dexcom G6 08/08/22 Unknown History Sensor device) blood-glucose transmitter (Dexcom 08/08/22 Unknown History G6 Transmitter device) tirzepatide 2.5 mg/0.5 mL mg subcut 08/08/22 Unknown History subcutaneous pen injector (Gustabo) Physical Exam Vital Signs and Narrative: Vital Signs: Last Vital Signs Temp 98.7 F 08/09/22 19:13 Pulse 92 08/09/22 20:07 Resp 11 L 08/09/22 20:07 BP 124/82 08/09/22 19:13 Pulse Ox 95 08/09/22 19:13 O2 Del Method 08/09/22 19:13 Oxygen Flow Rate 4 08/09/22 16:54 BMI result Body Mass Index 42.0 Middle-aged female lying in bed in mild distress on 2 L supplemental oxygen Neck supple, no JVD Regular rate and rhythm, S1-S2 heard Bilateral expiratory wheeze heard throughout Abdomen soft nontender, no guarding, no rigidity Patient is awake, alert and oriented to self, place, time and person ; no focal motor deficit Psych: Normal mood No pedal edema Results Labs CBC and Chem 7: 08/09/22 17:24 08/09/22 17:24 Labs: Laboratory Results - last 24 hr 08/09/22 08/09/22 08/09/22 17:24 17:24 17:28 MCV 81.5 MCH 26.9 L MCHC 33.0 RDW 14.5 Plt Count 324 MPV 9.7 Immature Gran % (Auto) 0.5 H Neut % (Auto) 63.2 Lymph % (Auto) 27.0 [place] % (Auto) 5.6 Eos % (Auto) 3.2 Baso % (Auto) 0.5 Lymph # (Auto) 4.2 [place] # (Auto) 0.9 Eos # (Auto) 0.5 H Baso # (Auto) 0.1 Abs Immat Gran (auto) 0.07 H Absolute Neuts (auto) 9.8 H Absolute Nucleated RBC 0.000 Nucleated RBC % (auto) 0.0 VBG pH VBG pCO2 VBG pO2 VBG HCO3 VBG O2 Saturation VBG Base Excess Anion Gap 16 Estim Creat Clear Calc 155.0 Estimated GFR > 60 Random Glucose 189 H Calcium 8.9 Total Bilirubin 0.7 AST 16 D ALT 33 H Alkaline Phosphatase 79 Total Protein 6.8 Albumin 4.1 COVID-19 ([facility]) Negative COVID-19 Clin Com See Note 08/09/22 17:30 MCV MCH MCHC RDW Plt Count MPV Immature Gran % (Auto) Neut % (Auto) Lymph % (Auto) [place] % (Auto) Eos % (Auto) Baso % (Auto) Lymph # (Auto) [place] # (Auto) Eos # (Auto) Baso # (Auto) Abs Immat Gran (auto) Absolute Neuts (auto) Absolute Nucleated RBC Nucleated RBC % (auto) VBG pH 7.48 H VBG pCO2 29 VBG pO2 205 VBG HCO3 22 VBG O2 Saturation 100.0 VBG Base Excess 0.1 Anion Gap Estim Creat Clear Calc Estimated GFR Random Glucose Calcium Total Bilirubin AST ALT Alkaline Phosphatase Total Protein Albumin COVID-19 ([facility]) COVID-19 Clin Com Imaging Radiologist's Impressions: Impressions Chest X-Ray 08/09/22 19:38 IMPRESSION: No acute pulmonary process. Assessment and Plan (1) Hypoxia: Status: Acute (2) Diabetes: Status: Acute (3) Asthma exacerbation: Status: Acute (4) Hypertension: Qualifiers: Hypertension type: essential hypertension Qualified Code(s): I10 - Essential (primary) hypertension Status: Acute Plan This is a 46-year-old female with pertinent history of diabetes mellitus, asthma who presents to the emergency department via EMS for evaluation of shortness of breath and wheezing. #. Acute hypoxemic respiratory failure due to: #. Acute exacerbation of severe persistent asthma -patient received IV Solu-Medrol and magnesium sulfate in the ER. will admit patient and continue systemic steroids. Uday scheduled and p.r.n.. Patient wants to see Dr. Montgomery, medical practitioners. Consulted in a.m.. May benefit from immunologic therapy. Continue home inhaler. Leukocytosis likely reactive. Monitor oxygen, maintain saturation greater than 92% and wean as tolerated #. Type 2 diabetes mellitus with hyperglycemia and neuropathy -initiating Accu-Cheks with sliding scale insulin before meals and at bedtime. Continue basal regimen 30 units at bedtime as anticipate worsening hyperglycemia due to steroid use. Continue amitriptyline #. Essential hypertension Continue home meds #. Mixed hyperlipidemia -on statin and Zetia DVT prophylaxis: Lovenox 40 mg daily Diet: Diabetic diet Full code Patient will require two night minimum hospital stay for weaning oxygen and scheduled bronchodilators to manage asthma exacerbation Quality Stroke Does the patient have a stroke diagnosis?: No VTE Prior VTE?: No VTE Risk Level:: Medical - low VTE Device Contraindication: Treatment Not Indicated VTE Drug Contraindication: N/A - Med Ordered
[2022-08-09] MEDS: Magnesium Sulfate/H2O 2 GM/50 ML PIGGYBACK IV (20:38)
[2022-08-09 20:53] LABS: Glucose, Whole Blood 222 mg/dL (60-115)
[2022-08-09] MEDS: Insulin Lispro 100 UNIT/ML 3 ML VIAL SUBCUT (21:00)
[2022-08-09] MEDS: Enoxaparin Sodium 40 MG/0.4 ML SYRINGE SUBCUT (21:01)
--- NOTE | 2022-08-09 21:03 | PC.NURSE ---
Pt has meds administered as order. Pt POC is 222. Pt V/S are stable. Will continue to monitor.
--- NOTE | 2022-08-09 21:29 | PC.NURSE ---
Pt o2 levels are 94. Pt is able to ambulate to the restroom, pt is a/o x 4.
[2022-08-09] MEDS: Insulin Glargine,Hum.rec.anlog 100 UNIT/ML 10 ML VIAL 30 UNIT SUBCUT (22:21)
--- NOTE | 2022-08-09 22:25 | PC.NURSE ---
Pt POC 369, meds are administered as order 30u. Pt V/s are stable based on pt based line. Pt is able to ambulate to bathroom. Pt is on the telemetry showing sinus Tachy.
[2022-08-09 22:33] LABS: Glucose, Whole Blood 396 mg/dL (60-115)
[2022-08-09] MEDS: 0.9 % Sodium Chloride Flush 3 ML SYRINGE IVFLUSH (23:45)
[2022-08-09] MEDS: Amitriptyline HCl 25 MG TABLET PO (23:45)
[2022-08-10] VITALS (7 sets, daily range): BP systolic 109–145; BP diastolic 50–77; PULSE 85–100; RESP 16–18; TEMP 36.3–37.2; O2SAT 93–96
--- NOTE | 2022-08-10 00:43 | PC.NURSE ---
Pt indpt to bathroom, VSS, lunch sounds wheezy, pt attempting to sleep. Visitor at bedside, not other needs. Personal items and call wan within reach
[2022-08-10 05:20] LABS: MANUAL DIFF FLAG NO
[2022-08-10 05:26] LABS: Basophils Percent Auto 0.2 % (0-2); Hematocrit 39.9 % (37.0-47.0); Hemoglobin 13.2 g/dl (12.0-16.0); Imm Gran Abs Auto 0.06 X10*3/uL (0.00-0.03); Imm Gran Pct Auto 0.5 % (0.0-0.4); Lymphocytes Absolute Auto 1.5 X10*3/uL (1.2-4.9); Lymphocytes Percent Auto 12.4 % (20-40); Mean Corpuscular HGB Conc 33.1 g/dl (31.0-35.0); Mean Corpuscular Volume 81.8 fL (80.0-98.0); Mean Platelet Volume 10.3 fL (9.4-12.3); Monocytes Absolute Auto 0.2 X10*3/uL (0.1-1.2); Monocytes Percent Auto 1.3 % (2-11); Neutrophils Absolute Auto 10.1 x10*3/uL (2.0-8.3); Neutrophils Percent Auto 85.6 % (45-73); Platelet Count 318 X10*3/uL (160-400); Red Blood Count 4.88 X10*6/uL (4.20-5.50); Red Cell Distribution Width 14.6 % (11.0-16.0); White Blood Count 11.8 X10*3/uL (4.8-10.8)
[2022-08-10 05:42] LABS: Anion Gap 16 (12-20); Blood Urea Nitrogen 8 mg/dL (9-16); Carbon Dioxide 22 mmol/L (22-29); Chloride 105 mmol/L (96-108); Creatinine Clr Calc Pharmacy 160.3; Estimated Glomerular Filt Rate > 60; Glucose Random 291 mg/dL (60-115); Potassium 3.6 mmol/L (3.3-5.1); Sodium 139 mmol/L (135-145)
[2022-08-10 07:39] LABS: Glucose, Whole Blood 200 mg/dL (60-115)
[2022-08-10] MEDS: Albuterol/Iprat 2.5/0.5MG 3 ML AMPUL.NEB INHALE ×4 (07:58→19:40)
[2022-08-10] MEDS: Ezetimibe 10 MG TABLET PO (08:25)
[2022-08-10] MEDS: predniSONE 20 MG TABLET 60 MG PO (08:25)
[2022-08-10] MEDS: Insulin Lispro 100 UNIT/ML 3 ML VIAL SUBCUT ×4 (08:26→22:07)
[2022-08-10] MEDS: Atorvastatin Calcium 80 MG TABLET PO (08:26)
[2022-08-10] MEDS: amLODIPine Besylate 10 MG TABLET PO (08:26)
[2022-08-10] MEDS: Cholecalciferol (Vitamin D3) 25 MCG TABLET 50 MCG PO (08:26)
[2022-08-10] MEDS: 0.9 % Sodium Chloride Flush 3 ML SYRINGE IVFLUSH ×3 (08:32→23:38)
--- NOTE | 2022-08-10 08:37 | PHA.MEDREC ---
Pharmacy Consult ? Medication Reconciliation Pharmacy has completed the medication reconciliation. Per patient, zetia was recently initiated, but she never picked it up from pharmacy. She states that she is done with her prednisone and is not taking the daily azithromycin anymore. Patient is on the muanjaro med titration, however that was just started @ 2.5mg. Thanks Ayaz
[2022-08-10] MEDS: Valsartan 160 MG TABLET PO (09:43)
[2022-08-10 12:15] LABS: Glucose, Whole Blood 282 mg/dL (60-115)
--- NOTE | 2022-08-10 12:53 | PM.CNPUL ---
History of Present Illness History of Present Illness Consult date: 08/10/22 Chief complaint: Asthma Exacerbation Narrative: This is an ip patient pulmonary consultation. This is a 46-year-old female with pertinent history of diabetes mellitus, severe persistent asthma who presents to the emergency department via EMS for evaluation of shortness of breath and wheezing.? Patient states she has come to the hospital about 4-5 times in the last 1 month for asthma exacerbation.? She was recently admitted and discharged on 07/30 for the same.? Also she saw pulmonary on 08/04 in the clinic and kept on Trelegy.? She states the symptoms started in the morning when she got out of the shower.? She could not catch her breath.? Took her home albuterol inhaler but that did not give any relief.? She called EMS found her to be hypoxemic.? She was placed on nasal cannula and brought to the ER.? Patient does not use oxygen at home.? States she was compliant with her home inhalers.?She is very upset because the steroids adversly affect her diabetes and has been gaining weight. Upon review of her bloodwork she has evidence of eosinophilia and elevated IGE, theerefore has allergic asthma. The patient discussed with her internal grinder starting Biologic therapy. Review of Systems Review of Systems: Yes all other systems are reviewed and are negative Eyes: Eyes: Reports no additional eye complaints ENT: Reports nasal congestion (Mild off and on) Cardiovascular: Cardiovascular: Denies chest pain, Denies irregular heart rhythm, Reports dyspnea and Reports dyspnea on exertion Respiratory: Respiratory: Reports as per HPI, Reports cough, Reports dyspnea, Reports dyspnea on exertion and Reports wheezing Gastrointestinal: Gastrointestinal: Reports no additional gastrointestinal complaints Genitourinary: Genitourinary: Reports no additional female genitourinary complaints Musculoskeletal: Musculoskeletal: Reports no additional musculoskeletal complaints Integumentary/Breasts: Skin/Breast: Reports system reviewed and no additional complaints, except as docu Neurologic: Reports other (Symptoms of peripheral neuropathy) Psychiatric: Psychiatric: Reports no additional psychiatric complaints Endocrine: Endocrine: Reports polydipsia and Reports polyuria Allergic/Immunologic: Allergic/Immunologic: Reports wheezing PMFSH Past Medical History Medical History Asthma Diabetes Diabetes type 2, uncontrolled Diabetic 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 with type 2 diabetes mellitus Ectopic Eosinophilia Hyperlipidemia Hypertension 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 Obesity due to excess calories Vitamin D deficiency Functional capacity: independent ambulation Family History Family History Father Diabetes mellitus Mother Diabetes mellitus Ovarian cancer Surgical History Surgical History History of surgical procedure on mouth Hx of ectopic Social History Social History Household Members: Spouse Housing: House Do you presently have visiting nurse or other home services: No Alcohol intake: never Patient Tobacco Use Status: Never used Tobacco Use of substances other than those prescribed or required for medical reasons: No Advance Directives: Yes Advance Directives on File: Yes Advance Directives Date on File: 07/15/22 Patient : No service: No Current occupational status: employed Meds Allergies Allergy/AdvReac Type Severity Reaction Status Date / Time canagliflozin [Invokana] Allergy Unknown rash Verified 08/09/22 16:54 liraglutide Allergy Unknown rash Verified 08/09/22 16:54 animals Allergy Unknown rash Uncoded 08/08/22 08:13 Pt states no known food Allergy Unknown Unknown Uncoded 08/08/22 08:13 allerg Active Medications: Current Medications Acetaminophen (Acetaminophen 325 Mg Tablet) 650 mg PO Q6H PRN PRN Reason: Pain, Mild (Pain Scale 1-3) Albuterol/Ipratropium (Albuterol/Iprat 2.5/0.5mg 3 Ml Ampul.Neb) 3 ml INHALE Q4H PRN PRN Reason: Wheezing Albuterol/Ipratropium (Albuterol/Iprat 2.5/0.5mg 3 Ml Ampul.Neb) 3 ml INHALE RQ4H SIXTO Last Admin: 08/10/22 11:20 Dose: 3 ml Amitriptyline HCl (Amitriptyline Hcl 25 Mg Tablet) 25 mg PO BEDTIME SIXTO Last Admin: 08/09/22 23:45 Dose: 25 mg Amlodipine Besylate (Amlodipine Besylate 10 Mg Tablet) 10 mg PO DAILY [facility]; Protocol Last Admin: 08/10/22 08:26 Dose: 10 mg Atorvastatin Calcium (Atorvastatin Calcium 80 Mg Tablet) 80 mg PO DAILY SIXTO Last Admin: 08/10/22 08:26 Dose: 80 mg Dextrose (Dextrose 50 % 25 Gm/50 Ml Syringe) 25 gm IVPUSH Q15M PRN; Protocol PRN Reason: per Hypoglycemia Standing Ord. Ezetimibe (Ezetimibe 10 Mg Tablet) 10 mg PO DAILY [facility] Last Admin: 08/10/22 08:25 Dose: 10 mg Enoxaparin Sodium (Enoxaparin Sodium 40 Mg/0.4 Ml Syringe) 40 mg SUBCUT Q24H [facility] Last Admin: 08/09/22 21:01 Dose: 40 mg Fluticasone/Vilanterol (Fluticasone/Vilanterol 100/25 Blst.W.Dev) 1 puff INHALE RDAILY [facility] Last Admin: 08/10/22 08:06 Dose: Not Given Glucose (Glucose Gel 15 Gm Gel..Gram.) 15 gm PO Q15M PRN; Protocol PRN Reason: per Hypoglycemia Standing Ord. Insulin Glargine (Insulin Glargine,Hum.Rec.Anlog 100 Unit/Ml 10 Ml Vial) 30 unit SUBCUT BEDTIME [facility] Last Admin: 08/09/22 22:21 Dose: 30 unit Insulin Human Lispro (Insulin Lispro 100 Unit/Ml 3 Ml Vial) 0 unit SUBCUT QIDACHS [facility]; Protocol Stop: 08/10/22 20:27 Last Admin: 08/10/22 12:34 Dose: 6 unit Melatonin (Melatonin 3 Mg Tablet) 6 mg PO BEDTIME PRN PRN Reason: Insomnia Ondansetron HCl (Ondansetron Hcl 4 Mg/2 Ml Vial) 4 mg IVPUSH Q8H PRN PRN Reason: Nausea and Vomiting Prednisone (Prednisone 20 Mg Tablet) 60 mg PO DAILY [facility] Last Admin: 08/10/22 08:25 Dose: 60 mg Sodium Chloride (0.9 % Sodium Chloride Flush 3 Ml Syringe) 3 ml IVFLUSH QSHIFT [facility] Last Admin: 08/10/22 08:32 Dose: 3 ml Valsartan (Valsartan 160 Mg Tablet) 160 mg PO DAILY [facility] Last Admin: 08/10/22 09:43 Dose: 160 mg Vitamin D (Cholecalciferol (Vitamin D3) 25 Mcg Tablet) 50 mcg PO DAILY [facility] Last Admin: 08/10/22 08:26 Dose: 50 mcg Home Medications Medication Instructions Recorded Confirmed Last Taken Type amlodipine 10 mg tablet 10 mg PO DAILY 12/12/20 08/10/22 08/09/22 History telmisartan 80 1 tab PO DAILY 12/12/20 08/10/22 08/09/22 History mg-hydrochlorothiazide 25 mg tablet montelukast 10 mg tablet 10 mg PO BEDTIME 11/26/21 08/10/22 08/08/22 History amitriptyline 25 mg tablet 1 tab PO BEDTIME 07/14/22 08/10/22 08/08/22 History naproxen 500 mg tablet 1 tab PO BID PRN Pain 07/14/22 08/10/22 Unknown History empagliflozin 25 mg tablet 1 tab PO DAILY 07/29/22 08/10/22 08/09/22 History (Jardiance) metformin 1,000 mg tablet 1 tab PO BID 07/29/22 08/10/22 08/09/22 History albuterol sulfate 2.5 mg/3 mL 2.5 mg inhalation BID 08/08/22 08/10/22 Unknown History (0.083 %) solution for nebulization blood sugar diagnostic (FreeStyle 08/08/22 Unknown History Lite Strips) blood-glucose meter,continuous 08/08/22 Unknown History (Dexcom G6 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 misc) blood-glucose sensor (Dexcom G6 08/08/22 Unknown History Sensor device) blood-glucose transmitter (Dexcom 08/08/22 Unknown History G6 Transmitter device) tirzepatide 2.5 mg/0.5 mL 2.5 mg subcut WE 08/08/22 08/10/22 08/06/22 History subcutaneous pen injector (Mounjaro) insulin lispro 100 unit/mL See Rx Instructions .Route .COMPLEX 08/10/22 08/10/22 Unknown History subcutaneous pen (Humalog KwikPen (U-100) Insulin) Physical Exam Vital Signs: Vital Signs: Last Vital Signs Temp 97.8 F 08/10/22 07:34 Pulse 85 08/10/22 07:34 Resp 18 08/10/22 11:20 BP 145/66 H 08/10/22 07:34 Pulse Ox 95 08/10/22 07:34 O2 Del Method 08/10/22 07:34 O2 Flow Rate 2 08/09/22 20:46 Oxygen Flow Rate 4 08/09/22 16:54 BMI result Body Mass Index 42.0 Const: General: no acute distress HEENT: Head: Yes normal to inspection Eyes: General: appearance normal, both eyes and all related structures Neck: Neck: Yes supple Chest: Chest palpation & inspection: normal inspection of the chest Resp: Effort & Inspection: Actively coughing Quality: actively coughing Auscultation: wheezes and diminished lung sounds Cardio: Rate: regular rate Rhythm: regular rhythm Heart sounds: S1 normal heart sound present and S2 normal heart sound present Skin: General skin exam: no rashes or lesions noted Extrem: General: Yes clubbing and Yes cyanosis Results Laboratory Findings CBC and BMP: 08/10/22 04:36 08/10/22 04:36 Abnormal lab findings: Abnormal Labs 08/09/22 08/09/22 08/09/22 17:24 17:24 17:30 WBC 15.5 H MCH 26.9 L Immature Gran % (Auto) 0.5 H Neut % (Auto) Lymph % (Auto) [place] % (Auto) Eos # (Auto) 0.5 H Abs Immat Gran (auto) 0.07 H Absolute Neuts (auto) 9.8 H VBG pH 7.48 H BUN POC Glucose Random Glucose 189 H ALT 33 H 08/09/22 08/09/22 08/10/22 20:49 22:11 04:36 WBC 11.8 H MCH Immature Gran % (Auto) 0.5 H Neut % (Auto) 85.6 H Lymph % (Auto) 12.4 L [place] % (Auto) 1.3 L Eos # (Auto) Abs Immat Gran (auto) 0.06 H Absolute Neuts (auto) 10.1 H VBG pH BUN POC Glucose 222 H 396 H* Random Glucose ALT 08/10/22 08/10/22 08/10/22 04:36 07:28 12:07 WBC MCH Immature Gran % (Auto) Neut % (Auto) Lymph % (Auto) [place] % (Auto) Eos # (Auto) Abs Immat Gran (auto) Absolute Neuts (auto) VBG pH BUN 8 L POC Glucose 200 H 282 H Random Glucose 291 H ALT Assessment and Plan (1) Asthma: Qualifiers: Asthma complication type: with acute exacerbation Asthma persistence: persistent Asthma severity: severe Qualified Code(s): J45.51 - Severe persistent asthma with (acute) exacerbation Status: Acute (2) Acute respiratory failure: Qualifiers: Respiratory failure complication: hypoxia Qualified Code(s): J96.01 - Acute respiratory failure with hypoxia Status: Acute Plan The patient has uncontrolled severe asthma. She is not responding to maximum respiratory therapy. The patient is very compliant with her treatment and still struggleling. She would like to start Biologic therapy as her pulmonalogist recommended. Based on her IgE elevated and Eosinophilic elevated I do believe she will respond well to dupixent. Based on the patient frustrations and concerns I will start the process Bloodwork Continue Rafael Yao will request starting on Dupixent as an outpt F/U with her internal grinder Procedures Date of Service Date of Service: 08/10/22
[2022-08-10 14:08] LABS: Erythrocyte Sedimentation Rate 8 MM/HR (0-20)
--- NOTE | 2022-08-10 14:09 | P.PNIM_ITS ---
Subjective Subjective Date of Service: 08/10/22 Interval History: sob Review of Systems still sob with minimum excersion , dry cough denies any fever or chills Physical Exam Vital Signs: Vital Signs: Last Vital Signs Temp 97.8 F 08/10/22 07:34 Pulse 85 08/10/22 07:34 Resp 18 08/10/22 11:20 BP 145/66 H 08/10/22 07:34 Pulse Ox 95 08/10/22 07:34 O2 Del Method 08/10/22 07:34 O2 Flow Rate 2 08/09/22 20:46 Oxygen Flow Rate 4 08/09/22 16:54 BMI result Body Mass Index 42.0 Appearance: Alert.? Oriented X3.?sob. cvs: rrr, [id number] res: diminshed breath sounds , b/l wheezin abd: no rebound or guarding ,nt, bs present. ext pulses present , no cyanosis. neuro: axo3 , nonfocal. Objective Data Active Medications Acetaminophen (Acetaminophen 325 Mg Tablet) 650 mg PO Q6H PRN PRN Reason: Pain, Mild (Pain Scale 1-3) Albuterol/Ipratropium (Albuterol/Iprat 2.5/0.5mg 3 Ml Ampul.Neb) 3 ml INHALE Q4H PRN PRN Reason: Wheezing Albuterol/Ipratropium (Albuterol/Iprat 2.5/0.5mg 3 Ml Ampul.Neb) 3 ml INHALE RQ4H [facility] Last Admin: 08/10/22 11:20 Dose: 3 ml Documented By: THEODORE Amitriptyline HCl (Amitriptyline Hcl 25 Mg Tablet) 25 mg PO BEDTIME [facility] Last Admin: 08/09/22 23:45 Dose: 25 mg Documented By: ALONSO Amlodipine Besylate (Amlodipine Besylate 10 Mg Tablet) 10 mg PO DAILY [facility]; Protocol Last Admin: 08/10/22 08:26 Dose: 10 mg Documented By: GUIDO Atorvastatin Calcium (Atorvastatin Calcium 80 Mg Tablet) 80 mg PO DAILY [facility] Last Admin: 08/10/22 08:26 Dose: 80 mg Documented By: GUIDO Dextrose (Dextrose 50 % 25 Gm/50 Ml Syringe) 25 gm IVPUSH Q15M PRN; Protocol PRN Reason: per Hypoglycemia Standing Ord. Ezetimibe (Ezetimibe 10 Mg Tablet) 10 mg PO DAILY [facility] Last Admin: 08/10/22 08:25 Dose: 10 mg Documented By: GUIDO Enoxaparin Sodium (Enoxaparin Sodium 40 Mg/0.4 Ml Syringe) 40 mg SUBCUT Q24H [facility] Last Admin: 08/09/22 21:01 Dose: 40 mg Documented By: LUCIA Fluticasone/Vilanterol (Fluticasone/Vilanterol 100/25 Blst.W.Dev) 1 puff INHALE RDAILY [facility] Last Admin: 08/10/22 08:06 Dose: Not Given Documented By: THEODORE Non-Admin Reason: Med Not Available Glucose (Glucose Gel 15 Gm Gel..Gram.) 15 gm PO Q15M PRN; Protocol PRN Reason: per Hypoglycemia Standing Ord. Insulin Glargine (Insulin Glargine,Hum.Rec.Anlog 100 Unit/Ml 10 Ml Vial) 30 unit SUBCUT BEDTIME [facility] Last Admin: 08/09/22 22:21 Dose: 30 unit Documented By: LUCIA Insulin Human Lispro (Insulin Lispro 100 Unit/Ml 3 Ml Vial) 0 unit SUBCUT QIDACHS [facility]; Protocol Stop: 08/10/22 20:27 Last Admin: 08/10/22 12:34 Dose: 6 unit Documented By: JOSELUIS Melatonin (Melatonin 3 Mg Tablet) 6 mg PO BEDTIME PRN PRN Reason: Insomnia Ondansetron HCl (Ondansetron Hcl 4 Mg/2 Ml Vial) 4 mg IVPUSH Q8H PRN PRN Reason: Nausea and Vomiting Prednisone (Prednisone 20 Mg Tablet) 60 mg PO DAILY [facility] Last Admin: 08/10/22 08:25 Dose: 60 mg Documented By: GUIDO Sodium Chloride (0.9 % Sodium Chloride Flush 3 Ml Syringe) 3 ml IVFLUSH QSHIFT [facility] Last Admin: 08/10/22 08:32 Dose: 3 ml Documented By: GUIDO Valsartan (Valsartan 160 Mg Tablet) 160 mg PO DAILY [facility] Last Admin: 08/10/22 09:43 Dose: 160 mg Documented By: GUIDO Vitamin D (Cholecalciferol (Vitamin D3) 25 Mcg Tablet) 50 mcg PO DAILY [facility] Last Admin: 08/10/22 08:26 Dose: 50 mcg Documented By: GUIDO Labs CBC & Chem 7: 08/10/22 04:36 08/10/22 04:36 Labs: Laboratory Results - last 24 hr 08/09/22 08/09/22 08/09/22 17:24 17:24 17:28 MCV 81.5 MCH 26.9 L MCHC 33.0 RDW 14.5 Plt Count 324 MPV 9.7 Immature Gran % (Auto) 0.5 H Neut % (Auto) 63.2 Lymph % (Auto) 27.0 [place] % (Auto) 5.6 Eos % (Auto) 3.2 Baso % (Auto) 0.5 Lymph # (Auto) 4.2 [place] # (Auto) 0.9 Eos # (Auto) 0.5 H Baso # (Auto) 0.1 Abs Immat Gran (auto) 0.07 H Absolute Neuts (auto) 9.8 H Absolute Nucleated RBC 0.000 Nucleated RBC % (auto) 0.0 ESR VBG pH VBG pCO2 VBG pO2 VBG HCO3 VBG O2 Saturation VBG Base Excess Anion Gap 16 Estim Creat Clear Calc 155.0 Estimated GFR > 60 POC Glucose Random Glucose 189 H Calcium 8.9 Total Bilirubin 0.7 AST 16 D ALT 33 H Alkaline Phosphatase 79 Total Protein 6.8 Albumin 4.1 COVID-19 ([facility]ANK) Negative COVID-19 Clin Com See Note 08/09/22 08/09/22 08/09/22 17:30 20:49 22:11 MCV MCH MCHC RDW Plt Count MPV Immature Gran % (Auto) Neut % (Auto) Lymph % (Auto) [place] % (Auto) Eos % (Auto) Baso % (Auto) Lymph # (Auto) [place] # (Auto) Eos # (Auto) Baso # (Auto) Abs Immat Gran (auto) Absolute Neuts (auto) Absolute Nucleated RBC Nucleated RBC % (auto) ESR VBG pH 7.48 H VBG pCO2 29 VBG pO2 205 VBG HCO3 22 VBG O2 Saturation 100.0 VBG Base Excess 0.1 Anion Gap Estim Creat Clear Calc Estimated GFR POC Glucose 222 H 396 H* Random Glucose Calcium Total Bilirubin AST ALT Alkaline Phosphatase Total Protein Albumin COVID-19 (DANK) COVID-19 Clin Com 08/10/22 08/10/22 08/10/22 04:36 04:36 07:28 MCV 81.8 MCH 27.0 MCHC 33.1 RDW 14.6 Plt Count 318 MPV 10.3 Immature Gran % (Auto) 0.5 H Neut % (Auto) 85.6 H Lymph % (Auto) 12.4 L [place] % (Auto) 1.3 L Eos % (Auto) 0.0 Baso % (Auto) 0.2 Lymph # (Auto) 1.5 [place] # (Auto) 0.2 Eos # (Auto) 0.0 Baso # (Auto) 0.0 Abs Immat Gran (auto) 0.06 H Absolute Neuts (auto) 10.1 H Absolute Nucleated RBC 0.000 Nucleated RBC % (auto) 0.0 ESR VBG pH VBG pCO2 VBG pO2 VBG HCO3 VBG O2 Saturation VBG Base Excess Anion Gap 16 Estim Creat Clear Calc 160.3 Estimated GFR > 60 POC Glucose 200 H Random Glucose 291 H Calcium 9.0 Total Bilirubin AST ALT Alkaline Phosphatase Total Protein Albumin COVID-19 (DANK) COVID-19 [place] 08/10/22 08/10/22 12:07 12:56 MCV MCH MCHC RDW Plt Count MPV Immature Gran % (Auto) Neut % (Auto) Lymph % (Auto) [place] % (Auto) Eos % (Auto) Baso % (Auto) Lymph # (Auto) [place] # (Auto) Eos # (Auto) Baso # (Auto) Abs Immat Gran (auto) Absolute Neuts (auto) Absolute Nucleated RBC Nucleated RBC % (auto) ESR 8 VBG pH VBG pCO2 VBG pO2 VBG HCO3 VBG O2 Saturation VBG Base Excess Anion Gap Estim Creat Clear Calc Estimated GFR POC Glucose 282 H Random Glucose Calcium Total Bilirubin AST ALT Alkaline Phosphatase Total Protein Albumin COVID-19 ([facility]ANK) COVID-19 [place] Assessment and Plan (1) Asthma exacerbation: Status: Acute (2) Hyperglycemia: Status: Acute Plan 46-year-old female with pertinent history of diabetes mellitus, asthma who presents to the emergency department via EMS for evaluation of shortness of breath and wheezing. #.? Acute hypoxemic respiratory failure due to: Acute exacerbation of severe persistent asthma -patient received IV Solu-Medrol and magnesium sulfate in the ER. will admit patient and continue systemic steroids.? DuoNeb scheduled and p.r.n..? ? May benefit from immunologic therapy.? Continue home inhaler.? Leukocytosis likely reactive.? Monitor oxygen, maintain saturation greater than 92% and wean as tolerated pulm eval pending #.? 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 ? Continue basal regimen 30 units at bedtime as anticipate worsening hyperglycemia due to steroid use.?adjusted fs with coverage. Essential hypertension Continue home meds Mixed hyperlipidemia -on statin and Zetia morbid obesity: weight loss. need for inaptient: Acute exacerbation of severe persistent asthma-need nebs ,iv steriods . Quality Stroke Does the patient have a stroke diagnosis?: No VTE Prior VTE?: No VTE Risk Level:: Medical - low VTE Device Contraindication: Treatment Not Indicated VTE Drug Contraindication: N/A - Med Ordered
[2022-08-10 16:40] LABS: Glucose, Whole Blood 339 mg/dL (60-115)
[2022-08-10] MEDS: Enoxaparin Sodium 40 MG/0.4 ML SYRINGE SUBCUT (19:44)
[2022-08-10] MEDS: Amitriptyline HCl 25 MG TABLET PO (19:45)
--- NOTE | 2022-08-10 20:11 | PC.NURSE ---
P patient co of itchy throat,hot feeling to her face I face flushed,Dr. Gates notified E patient denies any difficulty breathing or swallowing
[2022-08-10 20:49] LABS: Glucose, Whole Blood 404 mg/dL (60-115)
[2022-08-10] MEDS: diphenhydrAMINE HCL 50 MG/ML VIAL 25 MG IVPUSH (21:41)
[2022-08-10] MEDS: Insulin Glargine,Hum.rec.anlog 100 UNIT/ML 10 ML VIAL 30 UNIT SUBCUT (22:08)
[2022-08-10] MEDS: Insulin Regular, Human 100 UNIT/ML 3 ML VIAL IVPUSH (22:40)
[2022-08-11] VITALS: BP 105/68; PULSE 80; RESP 16; TEMP 36.5; O2SAT 97
[2022-08-11 00:28] LABS: Glucose, Whole Blood 287 mg/dL (60-115)
--- NOTE | 2022-08-11 01:18 | PC.NURSE ---
Dr. aGtes notified of repeat POC 287 via [facility].
[2022-08-11 04:00] VITALS: BP 102/62; PULSE 73; RESP 16; TEMP 36.5; O2SAT 97
--- NOTE | 2022-08-11 04:11 | PC.NURSE ---
Patient is sleeping, no signs of distress noted. VSS. Medicated per MAR.
[2022-08-11 07:23] LABS: Glucose, Whole Blood 206 mg/dL (60-115)
[2022-08-11] MEDS: Albuterol/Iprat 2.5/0.5MG 3 ML AMPUL.NEB INHALE ×2 (07:28→11:29)
[2022-08-11 07:30] VITALS: PULSE 82; RESP 18; O2SAT 96
[2022-08-11] MEDS: Ezetimibe 10 MG TABLET PO (08:28)
[2022-08-11] MEDS: Valsartan 160 MG TABLET PO (08:28)
[2022-08-11] MEDS: Cholecalciferol (Vitamin D3) 25 MCG TABLET 50 MCG PO (08:28)
[2022-08-11] MEDS: Insulin Lispro 100 UNIT/ML 3 ML VIAL SUBCUT ×2 (08:29→13:31)
[2022-08-11] MEDS: amLODIPine Besylate 10 MG TABLET PO (08:29)
[2022-08-11] MEDS: 0.9 % Sodium Chloride Flush 3 ML SYRINGE IVFLUSH (08:29)
[2022-08-11] MEDS: predniSONE 20 MG TABLET 40 MG PO (08:29)
[2022-08-11] MEDS: Atorvastatin Calcium 80 MG TABLET PO (08:29)
[2022-08-11 08:56] VITALS: BP 116/71; PULSE 87; RESP 14; TEMP 36; O2SAT 99
[2022-08-11] MEDS: Fluticasone/Vilanterol 100/25 BLST.W.DEV 1 PUFF INHALE (11:29)
[2022-08-11 11:33] VITALS: PULSE 87; RESP 18; O2SAT 100
--- NOTE | 2022-08-11 11:34 | MHC.CM.PN ---
PATIENT STATES THAT HER PCP IS DR Liss [facility] UPDATED
[2022-08-11 11:35] LABS: Glucose, Whole Blood 337 mg/dL (60-115)
--- NOTE | 2022-08-11 11:35 | MHC.CM.PN ---
PATIENT LIVES WITH FAMILY. SHE IS INDEPENDENT IN HER ADLS. COVID VAX X 2. HCP IS ON FILE AND VERIFIED PCP IS DR Liss [facility]
--- NOTE | 2022-08-11 13:02 | PM.DS ---
DS: Providers Provider Date of Service: 08/11/22 Date of admission: 08/09/22 20:20 Primary care physician: Unknown Physician Consults: 08/09/22 20:23 Consult to Pulmonology Routine Consulting Provider: Mak Montgomery Reason for consultation: Asthma exacerbation Has provider been notified: No DS: Diagnosis Discharge Diagnosis (1) Asthma: Status: Acute (2) Acute respiratory failure: Status: Acute DS: Summary Hospital Course Hospital Course: 46-year-old female with pertinent history of diabetes mellitus, asthma who presents to the emergency department via EMS for evaluation of shortness of breath and wheezing.? Patient states she has come to the hospital about 4-5 times in the last 1 month for asthma exacerbation.? She was recently admitted and discharged on 07/30 for the same.? Also saw Dr. Lewis, pulmonology on 08/04.? She states the symptoms started in the morning when she got out of the shower.? She could not catch her breath.? Took her home albuterol inhaler but that did not give any relief.? She called EMS found her to be hypoxemic.? She was placed on nasal cannula and brought to the ER.? Patient does not use oxygen at home.? States she was compliant with her home inhalers.? Denies fever, chills, cough, chest discomfort, palpitations, abdominal pain, changes in urinary or bowel habits. hospital course: Acute hypoxemic respiratory failure secondary to severe persistent asthma exacerbation. Started on nebs, steroids seems to improved significantly, going home with p.o. steroids, seen by Pulmonary [facility] to be start outpatient. Follow-up with pulmonology outpatient. plan: Please complete course of taper steroids. Follow-up with pulmonology outpatient next week -make appointment. Above management discussed with the patient in detail length she understand and in agreement with the above plan, time spent 50 minutes and 50% time spent on counseling. Significant findings: As above. Procedures performed: None. Treatment and response: As above. Complications: None. Time Spent with Patient Time attestation: Total time spent providing and/or coordinating discharge services: Discharge coordination time: Greater than 30 minutes Quality: Safe Use of Opioids Does Pt have an Active Cancer Diagnosis on the Problem List?: No Quality: Stroke Does the patient have a stroke diagnosis?: No Physical Exam Vital Signs: Vital Signs: Last Vital Signs Temp 96.8 F 08/11/22 08:56 Pulse 87 08/11/22 11:33 Resp 18 08/11/22 11:33 BP 116/71 08/11/22 08:56 Pulse Ox 99 08/11/22 08:56 O2 Del Method 08/11/22 08:56 O2 Flow Rate 2 08/09/22 20:46 Oxygen Flow Rate 4 08/09/22 16:54 BMI result Body Mass Index 42.0 ? Appearance: Alert.? Oriented X3.?sob. cvs: rrr, [id number] res: diminshed breath sounds , b/l wheezin abd: no rebound or guarding ,nt, bs present. ext pulses present , no cyanosis. neuro: axo3 , nonfocal. ? DS: Data Data Completed and Pending Labs on day of discharge: Laboratory Results - last 24 hr 08/10/22 08/10/22 08/10/22 12:56 16:36 20:45 ESR 8 POC Glucose 339 H 404 H* 08/11/22 08/11/22 08/11/22 00:21 07:13 11:31 ESR POC Glucose 287 H 206 H 337 H 17:24 17:24 17:28 MCV ?81.5 ? ? MCH ?26.9 L ? ? MCHC ?33.0 ? ? RDW ?14.5 ? ? Plt Count ?324 ? ? MPV ?9.7 ? ? Immature Gran % (Auto) ?0.5 H ? ? Neut % (Auto) ?63.2 ? ? Lymph % (Auto) ?27.0 ? ? [place] % (Auto) ?5.6 ? ? Eos % (Auto) ?3.2 ? ? Baso % (Auto) ?0.5 ? ? Lymph # (Auto) ?4.2 ? ? [place] # (Auto) ?0.9 ? ? Eos # (Auto) ?0.5 H ? ? Baso # (Auto) ?0.1 ? ? Abs Immat Gran (auto) ?0.07 H ? ? Absolute Neuts (auto) ?9.8 H ? ? Absolute Nucleated RBC ?0.000 ? ? Nucleated RBC % (auto) ?0.0 ? ? ESR ? ? ? VBG pH ? ? ? VBG pCO2 ? ? ? VBG pO2 ? ? ? VBG HCO3 ? ? ? VBG O2 Saturation ? ? ? VBG Base Excess ? ? ? Anion Gap ? ?16 ? Estim Creat Clear Calc ? ?155.0 ? Estimated GFR ? ?> 60 ? POC Glucose ? ? ? Random Glucose ? ?189 H ? Calcium ? ?8.9 ? Total Bilirubin ? ?0.7 ? AST ? ?16? D ? ALT ? ?33 H ? Alkaline Phosphatase ? ?79 ? Total Protein ? ?6.8 ? Albumin ? ?4.1 ? COVID-19 ([facility]) ? ? ?Negative COVID-19 Clin Com ? ? ?See Note ? 08/09/22 08/09/22 08/09/22 ? 17:30 20:49 22:11 MCV ? ? ? MCH ? ? ? MCHC ? ? ? RDW ? ? ? Plt Count ? ? ? MPV ? ? ? Immature Gran % (Auto) ? ? ? Neut % (Auto) ? ? ? Lymph % (Auto) ? ? ? [place] % (Auto) ? ? ? Eos % (Auto) ? ? ? Baso % (Auto) ? ? ? Lymph # (Auto) ? ? ? [place] # (Auto) ? ? ? Eos # (Auto) ? ? ? Baso # (Auto) ? ? ? Abs Immat Gran (auto) ? ? ? Absolute Neuts (auto) ? ? ? Absolute Nucleated RBC ? ? ? Nucleated RBC % (auto) ? ? ? ESR ? ? ? VBG pH ?7.48 H ? ? VBG pCO2 ?29 ? ? VBG pO2 ?205 ? ? VBG HCO3 ?22 ? ? VBG O2 Saturation ?100.0 ? ? VBG Base Excess ?0.1 ? ? Anion Gap ? ? ? Estim Creat Clear Calc ? ? ? Estimated GFR ? ? ? POC Glucose ? ?222 H ?396 H* Random Glucose ? ? ? Calcium ? ? ? Total Bilirubin ? ? ? AST ? ? ? ALT ? ? ? Alkaline Phosphatase ? ? ? Total Protein ? ? ? Albumin ? ? ? COVID-19 ([facility]ANK) ? ? ? COVID-19 Clin Com ? 08/10/22 08/10/22 08/10/22 ? 04:36 04:36 07:28 MCV ?81.8 ? ? MCH ?27.0 ? ? MCHC ?33.1 ? ? RDW ?14.6 ? ? Plt Count ?318 ? ? MPV ?10.3 ? ? Immature Gran % (Auto) ?0.5 H ? ? Neut % (Auto) ?85.6 H ? ? Lymph % (Auto) ?12.4 L ? ? [place] % (Auto) ?1.3 L ? ? Eos % (Auto) ?0.0 ? ? Baso % (Auto) ?0.2 ? ? Lymph # (Auto) ?1.5 ? ? [place] # (Auto) ?0.2 ? ? Eos # (Auto) ?0.0 ? ? Baso # (Auto) ?0.0 ? ? Abs Immat Gran (auto) ?0.06 H ? ? Absolute Neuts (auto) ?10.1 H ? ? Absolute Nucleated RBC ?0.000 ? ? Nucleated RBC % (auto) ?0.0 ? ? ESR ? ? ? VBG pH ? ? ? VBG pCO2 ? ? ? VBG pO2 ? ? ? VBG HCO3 ? ? ? VBG O2 Saturation ? ? ? VBG Base Excess ? ? ? Anion Gap ? ?16 ? Estim Creat Clear Calc ? ?160.3 ? Estimated GFR ? ?> 60 ? POC Glucose ? ? ?200 H Random Glucose ? ?291 H ? Calcium ? ?9.0 ? Total Bilirubin ? ? ? AST ? ? ? ALT ? ? Additional Comments Additional comments: XR/XR chest 1V IMPRESSION: No acute pulmonary process. Discharge Plan Discharge Patient Disposition: Home, Self-Care Discharge Diagnosis: asthma excerebation Referrals: Shandra Diaz MD [Physician] - 1 Week Mak Montgomery MD [Physician] - 2 Weeks (follow up outpatient) Discharge Medications: New prednisone 10 mg tablet See Taper PO DAILY Qty: 30 0RF Taper: Prednisone 40 mg daily for 3 Days and 0 Hour 30 mg daily for 3 Days and 0 Hour 20 mg daily for 3 Days and 0 Hour 10 mg daily for 3 Days and 0 Hour Continued (DME) nebulizers [AeroEclipse II Nebulizer] Misc See Rx Instructions .ROUTE .MEDSUPPLY Qty: 1 0RF Rx Instructions: As directed albuterol sulfate 90 mcg/actuation HFA aerosol inhaler 1 inh inhalation QID PRN (Reason: shortness of breath or wheezing) Qty: 8.5 0RF (DME) nebulizers [Compact Compressor Nebulizer] Misc See Rx Instructions .ROUTE .MEDSUPPLY Qty: 1 0RF Rx Instructions: As directed amitriptyline 25 mg tablet 1 tab PO BEDTIME naproxen 500 mg tablet 1 tab PO BID PRN (Reason: Pain) metformin 1,000 mg tablet 1 tab PO BID Jardiance 25 mg tablet 1 tab PO DAILY insulin lispro [Humalog KwikPen Insulin] 100 unit/mL insulin pen See Rx Instructions .ROUTE .COMPLEX Rx Instructions: USES A PUMP, UP TO 150 U/DAY (DME) blood-glucose meter [FreeStyle Lite Meter] Kit See Rx Instructions .ROUTE .MEDSUPPLY Qty: 1 0RF Rx Instructions: As directed (DME) lancets [FreeStyle Lancets] 28 gauge misc See Rx Instructions .ROUTE .MEDSUPPLY Qty: 200 1RF Rx Instructions: 5x/day montelukast 10 mg tablet 10 mg PO BEDTIME telmisartan-hydrochlorothiazid 80-25 mg tablet 1 tab PO DAILY amlodipine 10 mg tablet 10 mg PO DAILY rosuvastatin 40 mg tablet 40 mg PO BEDTIME 90 Days Qty: 90 2RF Mounjaro 2.5 mg/0.5 mL pen injector 2.5 mg subcut WE (DME) Dexcom G6 Charge Account Clerk Misc See Rx Instructions .Route Rx Instructions: As directed (DME) Dexcom G6 Sensor Device See Rx Instructions .Route Rx Instructions: As directed (DME) Dexcom G6 Transmitter Device See Rx Instructions .Route Rx Instructions: As directed (DME) FreeStyle Lite Strips Strip See Rx Instructions .Route Rx Instructions: As directed albuterol sulfate 2.5 mg /3 mL (0.083 %) solution for nebulization 2.5 mg inhalation BID cholecalciferol (vitamin D3) 50 mcg (2,000 unit) capsule 50 mcg PO DAILY Qty: 30 5RF ezetimibe [Zetia] 10 mg tablet 10 mg PO DAILY Qty: 30 5RF Trelegy Ellipta 100-62.5-25 mcg blister with device 1 inh inhalation DAILY 30 Days Qty: 1 6RF Discharge Orders: Discharge Order (Routine); Ordered 08/11/22 Ordered By: Taryn Santiago Diet: Advance to usual diet Activity on Discharge: As tolerated Stand Alone Forms: Patient Portal Discharge page Care Plan Goals: Acute hypoxemic respiratory failure secondary to severe persistent asthma exacerbation. Started on nebs, steroids seems to improved significantly, going home with p.o. steroids, seen by Pulmonary D[facility] to be start outpatient. Follow-up with pulmonology outpatient. Health Concerns: As above. Plan of Treatment: Please complete the course of steroids. Follow-up with pulmonology outpatient. Assessment: As above.
[2022-08-11 14:06] LABS: Anti Nuclear Antibody Screen NEGATIVE (NEGATIVE)
[2022-08-11 23:37] LABS: Immunoglobulin E 242 kU/L (<OR=114)
[2022-08-12 22:32] LABS: Myeloperoxidase Antibody <1.0 AI; Proteinase 3 PR3 Antibodies <1.0 AI
[2022-08-16 13:56] LABS: Asperg fumigatus Precip Abs NEGATIVE (NEGATIVE); Micropoly faeni Abs NEGATIVE (NEGATIVE); Pigeon serum Abs NEGATIVE (NEGATIVE); Saccharo pora viridis Abs NEGATIVE (NEGATIVE); Thermo candidus Abs NEGATIVE (NEGATIVE); Thermoa vulgaris #1 NEGATIVE (NEGATIVE)
== END 2022-08-11 14:04 | disposition home or self-care (01) | DRG 141 ==
LOC: HO.ED 20:13 → HO.EDOVER 22:50
PROVIDERS: Hospitalist; Admitting Provider Student in an Organized Health Care Education/Training Program; Emergency Provider Student in an Organized Health Care Education/Training Program; PCP Internal Medicine; Visit Provider Internal Medicine
DX: J45.51 Severe persistent asthma with (acute) exacerbation (principal); J96.01 Acute respiratory failure with hypoxia; E11.42 Type 2 diabetes mellitus with diabetic 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; E11.65 Type 2 diabetes mellitus with hyperglycemia; E66.01 Morbid (severe) obesity due to excess calories; E78.2 Mixed hyperlipidemia; Z20.822 Contact with and (suspected) exposure to COVID-19; Z68.41 Body mass index [BMI] 40.0-44.9, adult; Z88.8 Allergy status to other drugs, medicaments and biological substances; Z79.51 Long term (current) use of inhaled steroids; Z79.4 Long term (current) use of insulin; Z79.84 Long term (current) use of oral hypoglycemic drugs; Z79.899 Other long term (current) drug therapy
CPT/HCPCS: 36415; 71045; 80048; 80053; 82785; 82803; 82947; 85025; 85652; 86021; 86038; 86039; 86331; 86606; 86609; 87635; 93005; 94640; 96374; 99285; J1200; J1650; J2930; J3475

== ENCOUNTER → 2022-08-14 10:45 | Outpatient (BNVA) | payer OTHER, SELFPAY | PROVIDERS: Visit Provider Dietitian, Registered | DX: E11.65 Type 2 diabetes mellitus with hyperglycemia (principal) | CPT/HCPCS: 97803 ==

== ENCOUNTER → 2022-08-20 10:20 | Outpatient (BNVA) | payer OTHER, SELFPAY | PROVIDERS: PCP Internal Medicine; Visit Provider Internal Medicine Pulmonary Disease | DX: J45.51 Severe persistent asthma with (acute) exacerbation (principal); R06.09 Other forms of dyspnea; Z91.09 Other allergy status, other than to drugs and biological substances | CPT/HCPCS: 94618 ==

== ENCOUNTER 2022-08-29 08:34 | Outpatient (REF) | payer OTHER, SELFPAY | END 2022-08-29 08:35 | disposition home or self-care (01) | LOC: HO.MDS 08:34 | PROVIDERS: Visit Provider Internal Medicine Pulmonary Disease | DX: J45.50 Severe persistent asthma, uncomplicated (principal) | CPT/HCPCS: 96372; J2357 ==

== ENCOUNTER → 2022-09-03 07:54 | Outpatient (REF) | payer OTHER, SELFPAY ==
--- NOTE | 2022-09-03 07:56 | CA_ITS ---
Transthoracic Echocardiogram Patient (Last, First, Middle): Vonnie Courtney, Gender: Female Date of : 1975 Age: 46 Procedure Date: 09/03/2022 Procedure Type: Transthoracic Echocardiogram Location: OP Height: 170.18 cm Weight: 113.4 kg BSA: 2.22 m2 Heart Rate: 94 bpm BP: 140 / 82 mmHg Retail Account Specialist: Referring MD: Refugio Lewis MD Symptoms: R06.09 - Other forms of dyspnea Study Quality: Adequate ECG Rhythm: Sinus Conclusions: - The left ventricular systolic function is low normal. The visually estimated ejection fraction is between 50-55%. - No obvious valvular pathology seen on this study. Findings Left Ventricle Normal left ventricular cavity size. There is mildly increased left ventricular wall thickness. The left ventricular systolic function is low normal. The visually estimated ejection fraction is between 50-55%. There is no evidence of regional wall motion abnormalities. Diastolic function is normal for age. Right Ventricle Normal right ventricular cavity size and systolic function. Atria Both atria are normal in size. Aortic Valve The aortic valve was not well visualized. There is no aortic valve stenosis. There is no aortic valve regurgitation. Mitral Valve The mitral valve appears normal. There is no mitral valve regurgitation. There is no mitral valve stenosis. Pulmonic Valve The pulmonic valve is likely normal. Tricuspid Valve Normal tricuspid valve structure. There is trace tricuspid valve regurgitation. There is no evidence of pulmonary hypertension. Great Vessels The asc aorta is normal in size. Venous The inferior vena cava is normal in size and collapses greater than 50% with inspiration. Pericardium/Pleural There is no evidence of pericardial effusion. Prior Study Comparison Changes noted compared to prior study dated: 09/25/2017. LVEF slightly lower. Recommendations, Care & Conclusions No obvious valvular pathology seen on this study. Measurements 2D Linear Measurements IVSd: 1.24 0.6-0.9/0.6-1.0 cm LVIDd: 4.40 3.9-5.3/4.2-5.9 cm LVIDd Index: 1.98 2.4-3.2/2.2-3.1 cm/m2 LVIDs: 2.93 2.0-3.6 cm LVPWd: 1.28 0.7-1.1 cm LA Diam: 3.10 2.7-3.8/3.0-4.0 cm LAIDs Index: 1.40 1.5-2.3 cm/m2 LV Mass: 256.04 67-162/88-224 g LV Mass Index: 115.33 43-95/49-115 g/m2 LVOT Diam: 2.30 3.0+(-)1.3 cm 2D Systolic Function EF 4C: 62.70 >55% EF 2C: 56.60 >55% Mitral Valve MV Pk E: 0.49 MV PK A: 0.65 MV Decel Time: 156.00 E/A: 0.80 E'Lateral: 9.14 E'Medial: 7.94 E/E' Med: 6.10 E/E' Lat: 5.30 PHT: 46.00 MVA PHT: 4.78 Decel Mckinley: 3.13 Aortic Valve AoV Pk Gutierrez: 1.19 AoV Mn Gutierrez: 0.80 AoV VTI: 0.21 AoV Pk Grad: 6.00 Aov Mn Grad: 3.00 GUANAKITO Cont.VTI: 2.83 LVOT LVOT Pk Gutierrez: 0.78 LVOT Mn Gutierrez: 0.59 LVOT VTI: 0.14 LVOT Pk Grad: 2.00 LVOT Mn Grad: 2.00 LVOT Diam: 2.30 LVOT Area: 4.15 Diastolic Function MV Pk E: 0.49 MV Pk A: 0.65 E/A: 0.80 E'Medial: 7.94 E/E' Med: 6.10 E' Laterial: 9.14 E/E' Lat: 5.30 Right Ventricle TAPSE (mm): 19.60 Tricuspid Valve TR Pk Gutierrez: 2.07 TR Pk Grad: 17.00 RA Press: 3.00 RVSP: 20.00 Great Vessels Aorta Sinus of Valsalva: 2.90 2.0-3.5 cm Pulmonary Valve PV Pk Gutierrez: 0.59 Peak PV Grad: 1.00 Updated in Other Vendor System with Status of Final Isai Iyer MD electronically signed on 09/03/2022 10:52:08 AM with status of Final
== END ==
LOC: HO.CARD 07:54
PROVIDERS: Visit Provider Internal Medicine Pulmonary Disease
DX: R06.09 Other forms of dyspnea (principal)
CPT/HCPCS: 93306

== ENCOUNTER 2022-09-12 08:13 | Outpatient (REF) | payer OTHER, SELFPAY | END 2022-09-12 08:14 | disposition home or self-care (01) | LOC: HO.MDS 08:13 | PROVIDERS: Visit Provider Internal Medicine Pulmonary Disease | DX: J45.50 Severe persistent asthma, uncomplicated (principal) | CPT/HCPCS: 96372; J2357 ==

== ENCOUNTER 2022-09-20 07:03 | Outpatient (REF) | payer OTHER, SELFPAY ==
[2022-09-20 07:23] LABS: MANUAL DIFF FLAG NO
[2022-09-20 07:42] LABS: Basophils Percent Auto 0.4 % (0-2); Eosinophils Absolute Auto 0.1 X10*3/uL (0.0-0.4); Eosinophils Percent Auto 1.7 % (0-4); Hematocrit 41.9 % (37.0-47.0); Hemoglobin 13.6 g/dl (12.0-16.0); Imm Gran Abs Auto 0.03 X10*3/uL (0.00-0.03); Imm Gran Pct Auto 0.4 % (0.0-0.4); Lymphocytes Absolute Auto 3.4 X10*3/uL (1.2-4.9); Lymphocytes Percent Auto 49.1 % (20-40); Mean Corpuscular HGB Conc 32.5 g/dl (31.0-35.0); Mean Corpuscular Hemoglobin 26.8 pg (27.0-33.0); Mean Corpuscular Volume 82.5 fL (80.0-98.0); Mean Platelet Volume 9.6 fL (9.4-12.3); Monocytes Absolute Auto 0.4 X10*3/uL (0.1-1.2); Monocytes Percent Auto 5.7 % (2-11); Neutrophils Percent Auto 42.7 % (45-73); Platelet Count 338 X10*3/uL (160-400); Red Blood Count 5.08 X10*6/uL (4.20-5.50); Red Cell Distribution Width 13.9 % (11.0-16.0)
[2022-09-20 07:46] LABS: Estimated Average Glucose 206 mg/dL; Hemoglobin A1c % 8.8 %
[2022-09-20 08:14] LABS: Alanine Aminotransferase 25 U/L (0-31); Albumin Level 3.8 g/dL (3.5-5.0); Alkaline Phosphatase 80 U/L (39-117); Anion Gap 15 (12-20); Aspartate Amino Transferase 18 U/L (5-31); Bilirubin Total 0.6 mg/dL (0.0-1.0); Blood Urea Nitrogen 10 mg/dL (9-16); Calcium 8.9 mg/dL (8.4-10.2); Carbon Dioxide 23 mmol/L (22-29); Chloride 108 mmol/L (96-108); Cholesterol 216 mg/dL; Estimated Glomerular Filt Rate > 60; Glucose Random 117 mg/dL (60-115); HDL Cholesterol 42 mg/dL; LDL Cholesterol Calculated 142 mg/dl; Potassium 3.8 mmol/L (3.3-5.1); Sodium 142 mmol/L (135-145); Total Protein 6.4 g/dL (6.5-8.0); Triglycerides 163 mg/dL
[2022-09-20 08:35] LABS: Thyroid Stimulating Hormone 0.87 uIU/mL (0.32-4.0)
[2022-09-20 09:39] LABS: Creatinine Urine 149.53 mg/dL; Microalbum/Creatinine Ratio Ur 12.7 ug/mg cr
== END 2022-09-20 07:04 | disposition home or self-care (01) ==
LOC: HO.LAB 07:03
PROVIDERS: PCP Internal Medicine; Visit Provider Internal Medicine
DX: E11.65 Type 2 diabetes mellitus with hyperglycemia (principal); E88.2 Lipomatosis, not elsewhere classified; I10 Essential (primary) hypertension; M25.512 Pain in left shoulder
CPT/HCPCS: 36415; 80053; 80061; 82043; 83036; 84443; 85025

== ENCOUNTER 2022-09-26 09:17 | Outpatient (REF) | payer OTHER, SELFPAY | END 2022-09-26 09:18 | disposition home or self-care (01) | LOC: HO.MDS 09:17 | PROVIDERS: Visit Provider Internal Medicine Pulmonary Disease | DX: J45.50 Severe persistent asthma, uncomplicated (principal) | CPT/HCPCS: 96372; J2357 ==

== ENCOUNTER 2022-10-31 09:09 | Outpatient (REF) | payer OTHER, SELFPAY | END 2022-10-31 09:10 | disposition home or self-care (01) | LOC: HO.MDS 09:09 | PROVIDERS: Visit Provider Internal Medicine Pulmonary Disease | DX: J45.50 Severe persistent asthma, uncomplicated (principal) | CPT/HCPCS: 96372; J2357 ==

== ENCOUNTER 2022-11-25 08:12 | Outpatient (REF) | payer OTHER, SELFPAY | END 2022-11-25 08:13 | disposition home or self-care (01) | LOC: HO.MDS 08:12 | PROVIDERS: PCP Internal Medicine; Visit Provider Internal Medicine Pulmonary Disease | DX: J45.50 Severe persistent asthma, uncomplicated (principal) | CPT/HCPCS: 96372; J2357 ==

== ENCOUNTER 2022-12-09 07:39 | Outpatient (REF) | payer OTHER, SELFPAY ==
[2022-12-09 08:34] LABS: Cholesterol 145 mg/dL; HDL Cholesterol 44 mg/dL; LDL Cholesterol Calculated 83 mg/dl; Triglycerides 91 mg/dL
[2022-12-09 08:49] LABS: Vitamin D 25-OH Total 19.4 ng/mL (>30)
[2022-12-09 10:11] LABS: Creatinine Urine 173.11 mg/dL; Microalbum/Creatinine Ratio Ur 46.2 ug/mg cr
== END 2022-12-09 07:40 | disposition home or self-care (01) ==
LOC: HO.LAB 07:39
PROVIDERS: Nurse Practitioner Gerontology; PCP Internal Medicine; Visit Provider Internal Medicine Endocrinology, Diabetes & Metabolism
DX: E11.65 Type 2 diabetes mellitus with hyperglycemia (principal)
CPT/HCPCS: 36415; 80061; 82043; 82306

== ENCOUNTER 2022-12-09 08:01 | Outpatient (REF) | payer OTHER, SELFPAY | END 2022-12-09 08:02 | disposition home or self-care (01) | LOC: HO.MDS 08:01 | PROVIDERS: PCP Internal Medicine; Visit Provider Internal Medicine Pulmonary Disease | DX: J45.50 Severe persistent asthma, uncomplicated (principal) | CPT/HCPCS: 96372; J2357 ==

== ENCOUNTER → 2022-12-11 09:00 | Outpatient (BNVA) | payer OTHER, SELFPAY | PROVIDERS: PCP Internal Medicine; Visit Provider Internal Medicine Pulmonary Disease | DX: J45.909 Unspecified asthma, uncomplicated (principal); E11.65 Type 2 diabetes mellitus with hyperglycemia; E55.9 Vitamin D deficiency, unspecified | CPT/HCPCS: 82947; 83036 ==

== ENCOUNTER 2022-12-22 13:00 | Outpatient (REF) | payer OTHER, SELFPAY ==
[2022-12-22 14:36] LABS: Estimated Average Glucose 183 mg/dL
[2022-12-22 14:46] LABS: Alanine Aminotransferase 18 U/L (0-31); Albumin Level 4.1 g/dL (3.5-5.0); Alkaline Phosphatase 93 U/L (39-117); Anion Gap 15 (12-20); Aspartate Amino Transferase 14 U/L (5-31); Bilirubin Total 1.4 mg/dL (0.0-1.0); Blood Urea Nitrogen 9 mg/dL (9-16); Carbon Dioxide 27 mmol/L (22-29); Chloride 103 mmol/L (96-108); Estimated Glomerular Filt Rate > 60; Glucose Random 109 mg/dL (60-115); Potassium 3.8 mmol/L (3.3-5.1); Sodium 141 mmol/L (135-145); Total Protein 6.7 g/dL (6.5-8.0)
== END 2022-12-22 13:01 | disposition home or self-care (01) ==
LOC: HO.LAB 13:00
PROVIDERS: PCP Internal Medicine; Visit Provider Internal Medicine
DX: E11.65 Type 2 diabetes mellitus with hyperglycemia (principal); J45.909 Unspecified asthma, uncomplicated
CPT/HCPCS: 36415; 80053; 83036

== ENCOUNTER 2022-12-23 11:17 | Outpatient (REF) | payer OTHER, SELFPAY | END 2022-12-23 11:18 | disposition home or self-care (01) | LOC: HO.MDS 11:17 | PROVIDERS: Visit Provider Internal Medicine Pulmonary Disease | DX: J45.50 Severe persistent asthma, uncomplicated (principal) | CPT/HCPCS: 96372; J2357 ==

== ENCOUNTER → 2023-01-01 09:19 | Outpatient (BNVA) | payer OTHER, SELFPAY | PROVIDERS: PCP Internal Medicine; Visit Provider Dietitian, Registered | DX: E11.65 Type 2 diabetes mellitus with hyperglycemia (principal) | CPT/HCPCS: 97803 ==

== ENCOUNTER 2023-01-12 08:30 | Outpatient (REF) | payer OTHER, SELFPAY | END 2023-01-12 08:31 | disposition home or self-care (01) | LOC: HO.HOSX 08:30 | PROVIDERS: Visit Provider Orthopaedic Surgery | DX: Z13.89 Encounter for screening for other disorder (principal) ==

== ENCOUNTER 2023-01-20 07:03 | Outpatient (REF) | payer OTHER, SELFPAY | END 2023-01-20 07:04 | disposition home or self-care (01) | LOC: HO.MDS 07:03 | PROVIDERS: Visit Provider Internal Medicine Pulmonary Disease | DX: J45.50 Severe persistent asthma, uncomplicated (principal) | CPT/HCPCS: 96372; J2357 ==

== ENCOUNTER 2023-01-29 08:47 | Outpatient (REF) | payer OTHER, SELFPAY | END 2023-01-29 08:48 | disposition home or self-care (01) | LOC: HO.HOSX 08:47 | PROVIDERS: Visit Provider Orthopaedic Surgery | DX: Z13.89 Encounter for screening for other disorder (principal) ==

== ENCOUNTER 2023-02-04 19:30 | Emergency (ER) | payer OTHER, SELFPAY ==
--- NOTE | ~2023-02-04 | XR_ITS ---
EXAMINATION: XR CHEST CLINICAL INFORMATION: Pain COMPARISON: 08/09/2022 TECHNIQUE: Frontal view of the chest was obtained. FINDINGS: Cardiac leads overlie the chest. The lungs are well expanded. There is no focal consolidation, edema, or effusion. No pneumothorax. The cardiomediastinal silhouette is within normal limits. No acute osseous abnormality. XR/XR chest 1V IMPRESSION: No acute pulmonary disease.
--- NOTE | ~2023-02-04 | CT_ITS ---
EXAMINATION: CT ANGIOGRAM OF THE CHEST WITH AND WITHOUT CONTRAST (CT PULMONARY ANGIOGRAM FOR PE) CLINICAL INFORMATION: Left chest pain with shortness of breath. COMPARISON: Chest radiograph from earlier this evening. TECHNIQUE: Prior to contrast administration, noncontrast localization images were obtained. Subsequently, multidetector volumetric imaging was performed from the thoracic inlet to below the diaphragms following the administration of 65 mL Omnipaque 350 intravenous contrast. No contrast reaction reported Sagittal, coronal, and MIP oblique sagittal reformatted images were obtained on the CT workstation, uploaded to PACS, and reviewed. This CT examination was performed using dose optimization techniques as appropriate, variously including the following: *Automated exposure control *Adjustment of mA and/or kV according to patient size (this includes techniques or standardized protocols for targeted exams where dose is matched to indication/reason for exam; i.e. extremities or head) *Use of iterative reconstruction technique Total exam dose-length product 445 mGy-cm FINDINGS: QUALITY OF STUDY/CONTRAST BOLUS: Satisfactory. PULMONARY ARTERIES: No central or segmental pulmonary emboli. THORACIC AORTA: No aneurysm or dissection. LUNG: No focal consolidation, nodules or masses. The central airways are patent. PLEURA: No pleural effusion or pneumothorax. MEDIASTINUM: Normal heart size. No pericardial effusion. No hilar or mediastinal lymphadenopathy. No evidence of septal bowing or right heart strain. CORONARY ARTERY CALCIFICATION: None visualized on this study. CHEST WALL/AXILLA: No axillary or internal mammary lymphadenopathy. OSSEOUS STRUCTURES: No acute or suspicious osseous abnormality. UPPER ABDOMEN: Unremarkable. No reflux of contrast into the hepatic veins to suggest elevated right heart pressures. CT/CT angio chest PE protocol IMPRESSION: No pulmonary embolism or other acute intrathoracic abnormality. VTE: negative
[2023-02-04 19:37] VITALS: BP 158/100; PULSE 131; RESP 18; TEMP 39; O2SAT 97; BMI 38.2
--- NOTE | 2023-02-04 19:40 | ECG_ITS ---
Test Reason : CP Blood Pressure : / mmHG Vent. Rate : 121 BPM Atrial Rate : 121 BPM P-R Int : 128 ms QRS Dur : 102 ms QT Int : 324 ms P-R-T Axes : 042 007 026 degrees QTc Int : 460 ms Sinus tachycardia Otherwise normal ECG When compared with ECG of 09-AUG-2022 17:17, Questionable change in QRS axis Referred By: Jose Barr Electronically Signed By:ANTOLIN SANCHEZ MD
--- NOTE | 2023-02-04 19:47 | ED.CHESTPAIN ---
HPI - Chest Pain General Chief Complaint: Chest Pain <Jose Barr - Last Filed: 02/04/23 19:49> Stated Complaint: Chest Pain <Jose Barr - Last Filed: 02/04/23 19:49> Time Seen by Provider: 02/04/23 20:39 <Jose Barr - Last Filed: 02/04/23 19:49> Source: patient <Homar Mcgee MD - Last Filed: 02/05/23 01:55> Mode of arrival: ambulatory <Homar Mcgee MD - Last Filed: 02/05/23 01:55> Limitations: no limitations <Homar Mcgee MD - Last Filed: 02/05/23 01:55> History of Present Illness HPI narrative: Patient 47 years old with history of moderate to severe persistent asthma with significant allergic component on Xolair trilogy and albuterol MDI comes in for left-sided chest pain for last 3 days with left arm pain which is going for last 2 years with temperature of 102.2 degrees on arrival. Denies any significant shortness of breath or cough no nasal congestion no throat pain no leg swelling or calf pain <Homar Mcgee MD - Last Filed: 02/05/23 01:55> Related Data Home Medications: Home Medications Medication Instructions Recorded Confirmed amlodipine 10 mg tablet 10 mg PO DAILY 12/12/20 08/10/22 telmisartan 80 1 tab PO DAILY 12/12/20 08/10/22 mg-hydrochlorothiazide 25 mg tablet montelukast 10 mg tablet 10 mg PO BEDTIME 11/26/21 08/10/22 amitriptyline 25 mg tablet 1 tab PO BEDTIME 07/14/22 08/10/22 naproxen 500 mg tablet 1 tab PO BID PRN Pain 07/14/22 08/10/22 empagliflozin 25 mg tablet 1 tab PO DAILY 07/29/22 08/10/22 (Jardiance) metformin 1,000 mg tablet 1 tab PO BID 07/29/22 08/10/22 albuterol sulfate 2.5 mg/3 mL 2.5 mg inhalation BID 08/08/22 08/10/22 (0.083 %) solution for nebulization blood sugar diagnostic (FreeStyle 08/08/22 Lite Strips) blood-glucose meter,continuous 08/08/22 (Dexcom G6 Lead Installer) blood-glucose sensor (Dexcom G6 08/08/22 Sensor device) blood-glucose transmitter (Dexcom 08/08/22 G6 Transmitter device) insulin pump cart,cont inf,BT #5 ea 12/11/22 (Omnipod Dash Pods (Gen 4) subcutaneous cartridge) tirzepatide 10 mg/0.5 mL 10 mg subcut QWEEK 12/11/22 subcutaneous pen injector (Homarundanisha) Previous Rx's Medication Instructions Recorded albuterol sulfate 90 mcg/actuation 1 inh inhalation QID PRN shortness 12/22/20 aerosol inhaler of breath or wheezing #8.5 grams nebulizers (AeroEclipse II #1 ea 12/22/20 Nebulizer) nebulizers (Compact Compressor #1 ea 12/31/20 Nebulizer) rosuvastatin 40 mg tablet 40 mg PO BEDTIME 90 days #90 tabs 03/13/21 blood-glucose meter (FreeStyle #1 ea 07/19/21 Lite Meter kit) lancets 28 gauge (FreeStyle #200 ea 07/19/21 Lancets) fluticasone fur. 100 mcg-umeclid 1 inh inhalation DAILY 30 days #1 08/04/22 62.5 mcg-vilant 25 mcg ea inhalat.powder (Trelegy Ellipta) omalizumab 150 mg subcutaneous 300 mg subcut Q2W 28 days #4 ea 08/12/22 solution (Xolair) insulin lispro 100 unit/mL See Rx Instructions subcut TID #20 09/05/22 subcutaneous solution (Humalog mL U-100 Insulin) cholecalciferol (vitamin D3) 50 50 mcg PO DAILY #30 caps 12/11/22 mcg (2,000 unit) capsule insulin glargine-yfgn 100 unit/mL 30 unit (0.3 mL) subcut DAILY #20 12/11/22 subcutaneous solution (Semglee mL (insulin glargine-yfgn)) ezetimibe 10 mg tablet 10 mg PO DAILY #90 tabs 01/15/23 <Jose Barr - Last Filed: 02/04/23 19:49> Allergies/Adverse Reactions: Allergies Allergy/AdvReac Type Severity Reaction Status Date / Time canagliflozin [Invokana] Allergy Unknown rash Verified 12/11/22 09:39 liraglutide Allergy Unknown rash Verified 12/11/22 09:39 animals Allergy Unknown rash Uncoded 12/11/22 09:39 Pt states no known food Allergy Unknown Unknown Uncoded 12/11/22 09:39 allerg <Jose Barr - Last Filed: 02/04/23 19:49> Review of Systems Review of Systems: Yes all other systems are reviewed and are negative <Homar Mcgee MD - Last Filed: 02/05/23 01:55> [facility] Past Medical History Medical History: Medical History Asthma Diabetes Diabetes type 2, uncontrolled Diabetic 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 with type 2 diabetes mellitus Ectopic Eosinophilia Hyperlipidemia Hypertension assisted (current) use of insulin Obesity due to excess calories Vitamin D deficiency <Jose Barr - Last Filed: 02/04/23 19:49> Surgical History: Surgical History History of surgical procedure on mouth Hx of ectopic <Jose Barr - Last Filed: 02/04/23 19:49> Family History Family History: Family History Father Diabetes mellitus Mother Diabetes mellitus Ovarian cancer <Jose Barr - Last Filed: 02/04/23 19:49> Social History Social History: Social History Household Members: Spouse Housing: House Do you presently have visiting nurse or other home services: No Alcohol intake: never Patient Tobacco Use Status: Never used Tobacco Advance Directives: Yes Advance Directives on File: Yes Advance Directives Date on File: 07/15/22 service: No Current occupational status: employed <Jose Barr - Last Filed: 02/04/23 19:49> Physical Exam Vital Signs: Vital Signs: Last Vital Signs Temp 98.5 F 02/05/23 01:11 Pulse 90 02/05/23 01:11 Resp 18 02/05/23 01:11 BP 104/60 02/05/23 01:11 Pulse Ox 95 02/05/23 01:11 O2 Del Method 02/05/23 01:11 BMI result Body Mass Index 38.2 <Jose Barr - Last Filed: 02/04/23 19:49> Vital Signs: Last Vital Signs Temp 98.5 F 02/05/23 01:11 Pulse 90 02/05/23 01:11 Resp 18 02/05/23 01:11 BP 104/60 02/05/23 01:11 Pulse Ox 95 02/05/23 01:11 O2 Del Method 02/05/23 01:11 BMI result Body Mass Index 38.2 <Homar Mcgee MD - Last Filed: 02/05/23 01:55> Appearance: Alert. Oriented X3. No acute distress. Eyes: PERRLA ENT: Pharynx normal. Oral Mucosa moist Neck: Normal inspection. Neck supple. CVS: Normal heart rate and rhythm. Pulses normal. Respiratory: No respiratory distress. Equal air entry bilateral, no wheezing/rales/rhonchi tender to touch left chest wall and left arm Abdomen: Soft and nontender. Bowel sounds are present, no mass palpable, no CVA tenderness Skin: Skin warm and dry. Normal skin color. Normal skin turgor. Extremities: No lower extremity edema. No calf tenderness Neuro: Oriented X 3. No motor deficit. <Homar Mcgee MD - Last Filed: 02/05/23 01:55> Course Course Course Narrative: 47-year-old female with past medical history significant for morbid obesity, diabetes, asthma, hyperlipidemia her presents for evaluation of chest pain and weakness. Patient noted a heart rate of 130 in triage of 102. I ordered Tylenol. Ordered EKG, chest x-ray, UA, blood cultures. Patient will be given a room as soon as possible <Jose Barr - Last Filed: 02/04/23 19:49> Medications Administered Discontinued Medications Generic Name Dose Route Start Last Admin Trade Name Freq PRN Reason Stop Dose Admin Acetaminophen 975 mg 02/04/23 19:41 02/04/23 20:23 Acetaminophen 325 Mg Tablet PO 02/04/23 19:42 975 mg ONCE ONE Administration Albuterol Sulfate 5 mg/ 0 mg 02/04/23 20:53 02/04/23 21:09 Ipratropium [place] 0.5 mg INHALE 02/04/23 20:54 Not Given ONCE ONE Dexamethasone Sodium Phosphate 10 mg 02/04/23 20:49 02/04/23 20:59 Dexamethasone Sod Phosphate 10 Mg/Ml Vial IVPUSH 02/04/23 20:50 10 mg ONCE ONE Administration Sodium Chloride 1,000 mls @ 999 mls/hr 02/04/23 20:45 02/04/23 20:59 Ns IV 02/04/23 21:45 999 mls/hr .Q1H1M SIXTO Administration Ibuprofen 800 mg 02/04/23 22:11 02/04/23 22:17 Ibuprofen 800 Mg Tablet PO 02/04/23 22:12 800 mg ONCE ONE Administration Iohexol 65 ml 02/05/23 01:12 02/05/23 01:13 Iohexol 350 Mg/Ml 100 Ml Infus..Btl IV 02/05/23 01:13 65 ml ONCE ONE Administration Ketorolac Tromethamine 30 mg 02/04/23 20:49 02/04/23 20:59 Ketorolac Tromethamine 30 Mg/Ml Vial IVPUSH 02/04/23 20:50 30 mg ONCE ONE Administration <Jose Barr - Last Filed: 02/04/23 19:49> Medications Administered Discontinued Medications Generic Name Dose Route Start Last Admin Trade Name aMlcolm PRN Reason Stop Dose Admin Acetaminophen 975 mg 02/04/23 19:41 02/04/23 20:23 Acetaminophen 325 Mg Tablet PO 02/04/23 19:42 975 mg ONCE ONE Administration Albuterol Sulfate 5 mg/ 0 mg 02/04/23 20:53 02/04/23 21:09 Ipratropium [place] 0.5 mg INHALE 02/04/23 20:54 Not Given ONCE ONE Dexamethasone Sodium Phosphate 10 mg 02/04/23 20:49 02/04/23 20:59 Dexamethasone Sod Phosphate 10 Mg/Ml Vial IVPUSH 02/04/23 20:50 10 mg ONCE ONE Administration Sodium Chloride 1,000 mls @ 999 mls/hr 02/04/23 20:45 02/04/23 20:59 Ns IV 02/04/23 21:45 999 mls/hr .Q1H1M SIXTO Administration Ibuprofen 800 mg 02/04/23 22:11 02/04/23 22:17 Ibuprofen 800 Mg Tablet PO 02/04/23 22:12 800 mg ONCE ONE Administration Iohexol 65 ml 02/05/23 01:12 02/05/23 01:13 Iohexol 350 Mg/Ml 100 Ml Infus..Btl IV 02/05/23 01:13 65 ml ONCE ONE Administration Ketorolac Tromethamine 30 mg 02/04/23 20:49 02/04/23 20:59 Ketorolac Tromethamine 30 Mg/Ml Vial IVPUSH 02/04/23 20:50 30 mg ONCE ONE Administration <Homar Mcgee MD - Last Filed: 02/05/23 01:55> Medical Decision Making Medical Decision Making MDM Narrative: Patient with fever etiology not very clear normal lactic acid level COVID flu RSV negative CTA chest negative UA also negative blood cultures were done at this time cause of fever likely viral will discharge the patient home advised to follow-up with PCP <Homar Mcgee MD - Last Filed: 02/05/23 01:55> Differential Diagnosis Differential Diagnoses: The differential diagnosis associated with the presentation includes <Homar Mcgee MD - Last Filed: 02/05/23 01:55> Pneumonia/sepsis/UTI/viral illness <Homar Mcgee MD - Last Filed: 02/05/23 01:55> Lab Data [facility] Lab Attestation statement: I reviewed the patient's lab results. <Homar Mcgee MD - Last Filed: 02/05/23 01:55> Result Diagrams: 02/04/23 20:09 02/04/23 20:09 <Jose Barr - Last Filed: 02/04/23 19:49> Labs: Lab Results 02/04/23 02/04/23 02/04/23 Range/Units 20:09 20:09 20:09 WBC 8.3 (4.8-10.8) X10*3/uL RBC 5.42 (4.20-5.50) X10*6/uL Hgb 14.2 (12.0-16.0) g/dl Hct 43.2 (37.0-47.0) % MCV 79.7 L (80.0-98.0) fL MCH 26.2 L (27.0-33.0) pg MCHC 32.9 (31.0-35.0) g/dl RDW 14.4 (11.0-16.0) % Plt Count 299 (160-400) X10*3/uL MPV 9.5 (9.4-12.3) fL Immature Gran % (Auto) 0.2 (0.0-0.4) % Neut % (Auto) 81.6 H (45-73) % Lymph % (Auto) 13.2 L (20-40) % [place] % (Auto) 4.4 (2-11) % Eos % (Auto) 0.4 (0-4) % Baso % (Auto) 0.2 (0-2) % Lymph # (Auto) 1.1 L (1.2-4.9) X10*3/uL [place] # (Auto) 0.4 (0.1-1.2) X10*3/uL Eos # (Auto) 0.0 (0.0-0.4) X10*3/uL Baso # (Auto) 0.0 (0.0-0.2) X10*3/uL Abs Immat Gran (auto) 0.02 (0.00-0.03) X10*3/uL Absolute Neuts (auto) 6.8 (2.0-8.3) x10*3/uL Absolute Nucleated RBC 0.000 (0.0-0.012) X10*3/uL Nucleated RBC % (auto) 0.0 (0.0-0.2) /100WBC PT 11.5 (10.0-13.1) SEC INR 1.0 (0.9-1.1) APTT 26.6 (26.0-36.4) SEC D-Dimer High Sensitivty 256 NG/ML Sodium 139 (135-145) mmol/L Potassium 4.1 (3.3-5.1) mmol/L Chloride 105 (96-108) mmol/L Carbon Dioxide 22 (22-29) mmol/L Anion Gap 16 (12-20) BUN 8 L (9-16) mg/dL Creatinine 0.68 (0.5-1.4) mg/dL Estim Creat Clear Calc 128.4 Estimated GFR > 60 Random Glucose 157 H (60-115) mg/dL Lactic Acid (0.5-2.0) mmol/L Calcium 8.7 (8.4-10.2) mg/dL Magnesium 2.1 (1.6-2.6) mg/dL Total Bilirubin 1.7 H (0.0-1.0) mg/dL AST 19 (5-31) U/L ALT 30 (0-31) U/L Alkaline Phosphatase 87 (39-117) U/L Troponin I High Sens (<3.5-17.0) ng/L Total Protein 6.5 (6.5-8.0) g/dL Albumin 4.0 (3.5-5.0) g/dL Lipase 28 (8-78) U/L Urine Color Urine Appearance Urine pH (5.0-9.0) Ur Specific [place] (1.005-1.025) Urine Protein (Neg-Trace) mg/dL Urine Glucose (UA) (Negative) mg/dL Urine Ketones (Negative) mg/dL Urine Blood (Negative) Urine Nitrite (Negative) Ur Leukocyte Esterase (Negative) Urine RBC (0-2) /HPF Urine WBC (0-5) /HPF Ur Squamous Epith Cells (0-2) /HPF Urine Bacteria (None Seen) Hyaline Casts (0-2) /LPF Influenza Type A (PCR) (Negative) Influenza Type B (PCR) (Negative) RSV RNA Qual (PCR) (Negative) SARS-CoV-2 RNA (RT-PCR) (Negative) 02/04/23 02/04/23 02/04/23 Range/Units 20:09 20:09 20:10 WBC (4.8-10.8) X10*3/uL RBC (4.20-5.50) X10*6/uL Hgb (12.0-16.0) g/dl Hct (37.0-47.0) % MCV (80.0-98.0) fL MCH (27.0-33.0) pg MCHC (31.0-35.0) g/dl RDW (11.0-16.0) % Plt Count (160-400) X10*3/uL MPV (9.4-12.3) fL Immature Gran % (Auto) (0.0-0.4) % Neut % (Auto) (45-73) % Lymph % (Auto) (20-40) % [place] % (Auto) (2-11) % Eos % (Auto) (0-4) % Baso % (Auto) (0-2) % Lymph # (Auto) (1.2-4.9) X10*3/uL [place] # (Auto) (0.1-1.2) X10*3/uL Eos # (Auto) (0.0-0.4) X10*3/uL Baso # (Auto) (0.0-0.2) X10*3/uL Abs Immat Gran (auto) (0.00-0.03) X10*3/uL Absolute Neuts (auto) (2.0-8.3) x10*3/uL Absolute Nucleated RBC (0.0-0.012) X10*3/uL Nucleated RBC % (auto) (0.0-0.2) /100WBC PT (10.0-13.1) SEC INR (0.9-1.1) APTT (26.0-36.4) SEC D-Dimer High Sensitivty NG/ML Sodium (135-145) mmol/L Potassium (3.3-5.1) mmol/L Chloride (96-108) mmol/L Carbon Dioxide (22-29) mmol/L Anion Gap (12-20) BUN (9-16) mg/dL Creatinine (0.5-1.4) mg/dL Estim Creat Clear Calc Estimated GFR Random Glucose (60-115) mg/dL Lactic Acid 1.9 (0.5-2.0) mmol/L Calcium (8.4-10.2) mg/dL Magnesium (1.6-2.6) mg/dL Total Bilirubin (0.0-1.0) mg/dL AST (5-31) U/L ALT (0-31) U/L Alkaline Phosphatase (39-117) U/L Troponin I High Sens < 3.5 (<3.5-17.0) ng/L Total Protein (6.5-8.0) g/dL Albumin (3.5-5.0) g/dL Lipase (8-78) U/L Urine Color Urine Appearance Urine pH (5.0-9.0) Ur Specific [place] (1.005-1.025) Urine Protein (Neg-Trace) mg/dL Urine Glucose (UA) (Negative) mg/dL Urine Ketones (Negative) mg/dL Urine Blood (Negative) Urine Nitrite (Negative) Ur Leukocyte Esterase (Negative) Urine RBC (0-2) /HPF Urine WBC (0-5) /HPF Ur Squamous Epith Cells (0-2) /HPF Urine Bacteria (None Seen) Hyaline Casts (0-2) /LPF Influenza Type A (PCR) NEGATIVE (Negative) Influenza Type B (PCR) NEGATIVE (Negative) RSV RNA Qual (PCR) NEGATIVE (Negative) SARS-CoV-2 RNA (RT-PCR) NEGATIVE (Negative) 02/05/23 Range/Units 01:09 WBC (4.8-10.8) X10*3/uL RBC (4.20-5.50) X10*6/uL Hgb (12.0-16.0) g/dl Hct (37.0-47.0) % MCV (80.0-98.0) fL MCH (27.0-33.0) pg MCHC (31.0-35.0) g/dl RDW (11.0-16.0) % Plt Count (160-400) X10*3/uL MPV (9.4-12.3) fL Immature Gran % (Auto) (0.0-0.4) % Neut % (Auto) (45-73) % Lymph % (Auto) (20-40) % [place] % (Auto) (2-11) % Eos % (Auto) (0-4) % Baso % (Auto) (0-2) % Lymph # (Auto) (1.2-4.9) X10*3/uL [place] # (Auto) (0.1-1.2) X10*3/uL Eos # (Auto) (0.0-0.4) X10*3/uL Baso # (Auto) (0.0-0.2) X10*3/uL Abs Immat Gran (auto) (0.00-0.03) X10*3/uL Absolute Neuts (auto) (2.0-8.3) x10*3/uL Absolute Nucleated RBC (0.0-0.012) X10*3/uL Nucleated RBC % (auto) (0.0-0.2) /100WBC PT (10.0-13.1) SEC INR (0.9-1.1) APTT (26.0-36.4) SEC D-Dimer High Sensitivty NG/ML Sodium (135-145) mmol/L Potassium (3.3-5.1) mmol/L Chloride (96-108) mmol/L Carbon Dioxide (22-29) mmol/L Anion Gap (12-20) BUN (9-16) mg/dL Creatinine (0.5-1.4) mg/dL Estim Creat Clear Calc Estimated GFR Random Glucose (60-115) mg/dL Lactic Acid (0.5-2.0) mmol/L Calcium (8.4-10.2) mg/dL Magnesium (1.6-2.6) mg/dL Total Bilirubin (0.0-1.0) mg/dL AST (5-31) U/L ALT (0-31) U/L Alkaline Phosphatase (39-117) U/L Troponin I High Sens (<3.5-17.0) ng/L Total Protein (6.5-8.0) g/dL Albumin (3.5-5.0) g/dL Lipase (8-78) U/L Urine Color Yellow Urine Appearance Clear Urine pH 8.0 (5.0-9.0) Ur Specific [place] >= 1.030 H (1.005-1.025) Urine Protein Negative (Neg-Trace) mg/dL Urine Glucose (UA) >=1000 H (Negative) mg/dL Urine Ketones 15 (Negative) mg/dL Urine Blood Negative (Negative) Urine Nitrite Negative (Negative) Ur Leukocyte Esterase Negative (Negative) Urine RBC 0-2 (0-2) /HPF Urine WBC 0-5 (0-5) /HPF Ur Squamous Epith Cells 3-5 (0-2) /HPF Urine Bacteria Trace (None Seen) Hyaline Casts 0-2 (0-2) /LPF Influenza Type A (PCR) (Negative) Influenza Type B (PCR) (Negative) RSV RNA Qual (PCR) (Negative) SARS-CoV-2 RNA (RT-PCR) (Negative) <Jose Barr - Last Filed: 02/04/23 19:49> Lab Results 02/04/23 02/04/23 02/04/23 Range/Units 20:09 20:09 20:09 WBC 8.3 (4.8-10.8) X10*3/uL RBC 5.42 (4.20-5.50) X10*6/uL Hgb 14.2 (12.0-16.0) g/dl Hct 43.2 (37.0-47.0) % MCV 79.7 L (80.0-98.0) fL MCH 26.2 L (27.0-33.0) pg MCHC 32.9 (31.0-35.0) g/dl RDW 14.4 (11.0-16.0) % Plt Count 299 (160-400) X10*3/uL MPV 9.5 (9.4-12.3) fL Immature Gran % (Auto) 0.2 (0.0-0.4) % Neut % (Auto) 81.6 H (45-73) % Lymph % (Auto) 13.2 L (20-40) % [place] % (Auto) 4.4 (2-11) % Eos % (Auto) 0.4 (0-4) % Baso % (Auto) 0.2 (0-2) % Lymph # (Auto) 1.1 L (1.2-4.9) X10*3/uL [place] # (Auto) 0.4 (0.1-1.2) X10*3/uL Eos # (Auto) 0.0 (0.0-0.4) X10*3/uL Baso # (Auto) 0.0 (0.0-0.2) X10*3/uL Abs Immat Gran (auto) 0.02 (0.00-0.03) X10*3/uL Absolute Neuts (auto) 6.8 (2.0-8.3) x10*3/uL Absolute Nucleated RBC 0.000 (0.0-0.012) X10*3/uL Nucleated RBC % (auto) 0.0 (0.0-0.2) /100WBC PT 11.5 (10.0-13.1) SEC INR 1.0 (0.9-1.1) APTT 26.6 (26.0-36.4) SEC D-Dimer High Sensitivty 256 NG/ML Sodium 139 (135-145) mmol/L Potassium 4.1 (3.3-5.1) mmol/L Chloride 105 (96-108) mmol/L Carbon Dioxide 22 (22-29) mmol/L Anion Gap 16 (12-20) BUN 8 L (9-16) mg/dL Creatinine 0.68 (0.5-1.4) mg/dL Estim Creat Clear Calc 128.4 Estimated GFR > 60 Random Glucose 157 H (60-115) mg/dL Lactic Acid (0.5-2.0) mmol/L Calcium 8.7 (8.4-10.2) mg/dL Magnesium 2.1 (1.6-2.6) mg/dL Total Bilirubin 1.7 H (0.0-1.0) mg/dL AST 19 (5-31) U/L ALT 30 (0-31) U/L Alkaline Phosphatase 87 (39-117) U/L Troponin I High Sens (<3.5-17.0) ng/L Total Protein 6.5 (6.5-8.0) g/dL Albumin 4.0 (3.5-5.0) g/dL Lipase 28 (8-78) U/L Urine Color Urine Appearance Urine pH (5.0-9.0) Ur Specific [place] (1.005-1.025) Urine Protein (Neg-Trace) mg/dL Urine Glucose (UA) (Negative) mg/dL Urine Ketones (Negative) mg/dL Urine Blood (Negative) Urine Nitrite (Negative) Ur Leukocyte Esterase (Negative) Urine RBC (0-2) /HPF Urine WBC (0-5) /HPF Ur Squamous Epith Cells (0-2) /HPF Urine Bacteria (None Seen) Hyaline Casts (0-2) /LPF Influenza Type A (PCR) (Negative) Influenza Type B (PCR) (Negative) RSV RNA Qual (PCR) (Negative) SARS-CoV-2 RNA (RT-PCR) (Negative) 02/04/23 02/04/23 02/04/23 Range/Units 20:09 20:09 20:10 WBC (4.8-10.8) X10*3/uL RBC (4.20-5.50) X10*6/uL Hgb (12.0-16.0) g/dl Hct (37.0-47.0) % MCV (80.0-98.0) fL MCH (27.0-33.0) pg MCHC (31.0-35.0) g/dl RDW (11.0-16.0) % Plt Count (160-400) X10*3/uL MPV (9.4-12.3) fL Immature Gran % (Auto) (0.0-0.4) % Neut % (Auto) (45-73) % Lymph % (Auto) (20-40) % [place] % (Auto) (2-11) % Eos % (Auto) (0-4) % Baso % (Auto) (0-2) % Lymph # (Auto) (1.2-4.9) X10*3/uL [place] # (Auto) (0.1-1.2) X10*3/uL Eos # (Auto) (0.0-0.4) X10*3/uL Baso # (Auto) (0.0-0.2) X10*3/uL Abs Immat Gran (auto) (0.00-0.03) X10*3/uL Absolute Neuts (auto) (2.0-8.3) x10*3/uL Absolute Nucleated RBC (0.0-0.012) X10*3/uL Nucleated RBC % (auto) (0.0-0.2) /100WBC PT (10.0-13.1) SEC INR (0.9-1.1) APTT (26.0-36.4) SEC D-Dimer High Sensitivty NG/ML Sodium (135-145) mmol/L Potassium (3.3-5.1) mmol/L Chloride (96-108) mmol/L Carbon Dioxide (22-29) mmol/L Anion Gap (12-20) BUN (9-16) mg/dL Creatinine (0.5-1.4) mg/dL Estim Creat Clear Calc Estimated GFR Random Glucose (60-115) mg/dL Lactic Acid 1.9 (0.5-2.0) mmol/L Calcium (8.4-10.2) mg/dL Magnesium (1.6-2.6) mg/dL Total Bilirubin (0.0-1.0) mg/dL AST (5-31) U/L ALT (0-31) U/L Alkaline Phosphatase (39-117) U/L Troponin I High Sens < 3.5 (<3.5-17.0) ng/L Total Protein (6.5-8.0) g/dL Albumin (3.5-5.0) g/dL Lipase (8-78) U/L Urine Color Urine Appearance Urine pH (5.0-9.0) Ur Specific [place] (1.005-1.025) Urine Protein (Neg-Trace) mg/dL Urine Glucose (UA) (Negative) mg/dL Urine Ketones (Negative) mg/dL Urine Blood (Negative) Urine Nitrite (Negative) Ur Leukocyte Esterase (Negative) Urine RBC (0-2) /HPF Urine WBC (0-5) /HPF Ur Squamous Epith Cells (0-2) /HPF Urine Bacteria (None Seen) Hyaline Casts (0-2) /LPF Influenza Type A (PCR) NEGATIVE (Negative) Influenza Type B (PCR) NEGATIVE (Negative) RSV RNA Qual (PCR) NEGATIVE (Negative) SARS-CoV-2 RNA (RT-PCR) NEGATIVE (Negative) 02/05/23 Range/Units 01:09 WBC (4.8-10.8) X10*3/uL RBC (4.20-5.50) X10*6/uL Hgb (12.0-16.0) g/dl Hct (37.0-47.0) % MCV (80.0-98.0) fL MCH (27.0-33.0) pg MCHC (31.0-35.0) g/dl RDW (11.0-16.0) % Plt Count (160-400) X10*3/uL MPV (9.4-12.3) fL Immature Gran % (Auto) (0.0-0.4) % Neut % (Auto) (45-73) % Lymph % (Auto) (20-40) % [place] % (Auto) (2-11) % Eos % (Auto) (0-4) % Baso % (Auto) (0-2) % Lymph # (Auto) (1.2-4.9) X10*3/uL [place] # (Auto) (0.1-1.2) X10*3/uL Eos # (Auto) (0.0-0.4) X10*3/uL Baso # (Auto) (0.0-0.2) X10*3/uL Abs Immat Gran (auto) (0.00-0.03) X10*3/uL Absolute Neuts (auto) (2.0-8.3) x10*3/uL Absolute Nucleated RBC (0.0-0.012) X10*3/uL Nucleated RBC % (auto) (0.0-0.2) /100WBC PT (10.0-13.1) SEC INR (0.9-1.1) APTT (26.0-36.4) SEC D-Dimer High Sensitivty NG/ML Sodium (135-145) mmol/L Potassium (3.3-5.1) mmol/L Chloride (96-108) mmol/L Carbon Dioxide (22-29) mmol/L Anion Gap (12-20) BUN (9-16) mg/dL Creatinine (0.5-1.4) mg/dL Estim Creat Clear Calc Estimated GFR Random Glucose (60-115) mg/dL Lactic Acid (0.5-2.0) mmol/L Calcium (8.4-10.2) mg/dL Magnesium (1.6-2.6) mg/dL Total Bilirubin (0.0-1.0) mg/dL AST (5-31) U/L ALT (0-31) U/L Alkaline Phosphatase (39-117) U/L Troponin I High Sens (<3.5-17.0) ng/L Total Protein (6.5-8.0) g/dL Albumin (3.5-5.0) g/dL Lipase (8-78) U/L Urine Color Yellow Urine Appearance Clear Urine pH 8.0 (5.0-9.0) Ur Specific [place] >= 1.030 H (1.005-1.025) Urine Protein Negative (Neg-Trace) mg/dL Urine Glucose (UA) >=1000 H (Negative) mg/dL Urine Ketones 15 (Negative) mg/dL Urine Blood Negative (Negative) Urine Nitrite Negative (Negative) Ur Leukocyte Esterase Negative (Negative) Urine RBC 0-2 (0-2) /HPF Urine WBC 0-5 (0-5) /HPF Ur Squamous Epith Cells 3-5 (0-2) /HPF Urine Bacteria Trace (None Seen) Hyaline Casts 0-2 (0-2) /LPF Influenza Type A (PCR) (Negative) Influenza Type B (PCR) (Negative) RSV RNA Qual (PCR) (Negative) SARS-CoV-2 RNA (RT-PCR) (Negative) <Homar Mcgee MD - Last Filed: 02/05/23 01:55> Discharge Plan Discharge Clinical Impression: Fever, Left-sided chest wall pain <Jose Barr - Last Filed: 02/04/23 19:49> Patient Disposition: Home, Self-Care <Jose Barr - Last Filed: 02/04/23 19:49> Instructions: Fever in Adults (ED), Chest Wall Pain (ED) <Jose Barr - Last Filed: 02/04/23 19:49> Additional Instructions: Keep hydrated Take Tylenol/Motrin for fever Follow with PCP if not better We have done blood cultures and if anything comes up positive will call you <Jose Barr - Last Filed: 02/04/23 19:49> Prescriptions: No Action Xolair 150 mg recon soln 300 mg subcut Q2W 28 Days Qty: 4 12RF Rx Instructions: requires multiple injection sites; do not exceed 150 mg per injection site insulin lispro [Humalog U-100 Insulin] 100 unit/mL solution See Rx Instructions subcut TID Qty: 20 6RF Rx Instructions: USES A PUMP, UP TO 150 U/DAYsubcutaneously 3 times a day; ezetimibe 10 mg tablet 10 mg PO DAILY Qty: 90 4RF (DME) nebulizers [AeroEclipse II Nebulizer] [facility] [place] See Rx Instructions .ROUTE .MEDSUPPLY Qty: 1 0RF Rx Instructions: As directed albuterol sulfate 90 mcg/actuation HFA aerosol inhaler 1 inh inhalation QID PRN (Reason: shortness of breath or wheezing) Qty: 8.5 0RF (DME) nebulizers [Compact Compressor Nebulizer] [facility] [place] See Rx Instructions .ROUTE .MEDSUPPLY Qty: 1 0RF Rx Instructions: As directed amitriptyline 25 mg tablet 1 tab PO BEDTIME naproxen 500 mg tablet 1 tab PO BID PRN (Reason: Pain) metformin 1,000 mg tablet 1 tab PO BID Jardiance 25 mg tablet 1 tab PO DAILY (DME) blood-glucose meter [FreeStyle Lite Meter] Kit See Rx Instructions .ROUTE .MEDSUPPLY Qty: 1 0RF Rx Instructions: As directed (DME) lancets [FreeStyle Lancets] 28 gauge misc See Rx Instructions .ROUTE .MEDSUPPLY Qty: 200 1RF Rx Instructions: 5x/day montelukast 10 mg tablet 10 mg PO BEDTIME telmisartan-hydrochlorothiazid 80-25 mg tablet 1 tab PO DAILY amlodipine 10 mg tablet 10 mg PO DAILY rosuvastatin 40 mg tablet 40 mg PO BEDTIME 90 Days Qty: 90 2RF (DME) Dexcom G6 Lead Installer Misc See Rx Instructions .Route Rx Instructions: As directed (DME) Dexcom G6 Sensor Device See Rx Instructions .Route Rx Instructions: As directed (DME) Dexcom G6 Transmitter Device See Rx Instructions .Route Rx Instructions: As directed (DME) FreeStyle Lite Strips Strip See Rx Instructions .Route Rx Instructions: As directed albuterol sulfate 2.5 mg /3 mL (0.083 %) solution for nebulization 2.5 mg inhalation BID Trelegy Ellipta 100-62.5-25 mcg blister with device 1 inh inhalation DAILY 30 Days Qty: 1 6RF (DME) Omnipod Dash Pods (Gen 4) Cartridge See Rx Instructions subcut DIRECTED Qty: 5 Rx Instructions: As directed Mounjaro 10 mg/0.5 mL pen injector 10 mg subcut QWEEK insulin glargine-yfgn [Semglee(insulin glargine-yfgn)] 100 unit/mL solution 30 unit subcut DAILY Qty: 20 5RF cholecalciferol (vitamin D3) 50 mcg (2,000 unit) capsule 50 mcg PO DAILY Qty: 30 5RF <Jose Barr - Last Filed: 02/04/23 19:49>
[2023-02-04 20:22] LABS: MANUAL DIFF FLAG NO
[2023-02-04] MEDS: Acetaminophen 325 MG TABLET 975 MG PO (20:23)
--- NOTE | 2023-02-04 20:25 | PC.NURSE ---
Medicated per Jan, Notified SHELLEY fraser.
[2023-02-04 20:27] LABS: Basophils Percent Auto 0.2 % (0-2); Eosinophils Percent Auto 0.4 % (0-4); Hematocrit 43.2 % (37.0-47.0); Hemoglobin 14.2 g/dl (12.0-16.0); Imm Gran Abs Auto 0.02 X10*3/uL (0.00-0.03); Imm Gran Pct Auto 0.2 % (0.0-0.4); Lymphocytes Absolute Auto 1.1 X10*3/uL (1.2-4.9); Lymphocytes Percent Auto 13.2 % (20-40); Mean Corpuscular HGB Conc 32.9 g/dl (31.0-35.0); Mean Corpuscular Hemoglobin 26.2 pg (27.0-33.0); Mean Corpuscular Volume 79.7 fL (80.0-98.0); Mean Platelet Volume 9.5 fL (9.4-12.3); Monocytes Absolute Auto 0.4 X10*3/uL (0.1-1.2); Monocytes Percent Auto 4.4 % (2-11); Neutrophils Absolute Auto 6.8 x10*3/uL (2.0-8.3); Neutrophils Percent Auto 81.6 % (45-73); Platelet Count 299 X10*3/uL (160-400); Red Blood Count 5.42 X10*6/uL (4.20-5.50); Red Cell Distribution Width 14.4 % (11.0-16.0); White Blood Count 8.3 X10*3/uL (4.8-10.8)
[2023-02-04 20:32] LABS: Prothrombin Time 11.5 SEC (10.0-13.1)
[2023-02-04 20:35] LABS: Partial Thromboplastin Time 26.6 SEC (26.0-36.4)
[2023-02-04 20:36] LABS: Lactic Acid 1.9 mmol/L (0.5-2.0)
[2023-02-04 20:39] LABS: Alanine Aminotransferase 30 U/L (0-31); Alkaline Phosphatase 87 U/L (39-117); Anion Gap 16 (12-20); Aspartate Amino Transferase 19 U/L (5-31); Bilirubin Total 1.7 mg/dL (0.0-1.0); Blood Urea Nitrogen 8 mg/dL (9-16); Calcium 8.7 mg/dL (8.4-10.2); Carbon Dioxide 22 mmol/L (22-29); Chloride 105 mmol/L (96-108); Creatinine Clr Calc Pharmacy 128.4; Estimated Glomerular Filt Rate > 60; Glucose Random 157 mg/dL (60-115); Lipase 28 U/L (8-78); Magnesium 2.1 mg/dL (1.6-2.6); Potassium 4.1 mmol/L (3.3-5.1); Sodium 139 mmol/L (135-145); Total Protein 6.5 g/dL (6.5-8.0)
[2023-02-04 20:40] VITALS: BP 120/85; PULSE 125; RESP 14; TEMP 38.1; O2SAT 97
[2023-02-04 20:50] LABS: Troponin-I High Sensitivity < 3.5 ng/L (<3.5-17.0)
[2023-02-04] MEDS: 0.9 % Sodium Chloride 1,000 ML 999 ML IV (20:59)
[2023-02-04] MEDS: Ketorolac Tromethamine 30 MG/ML VIAL IVPUSH (20:59)
[2023-02-04] MEDS: dexAMETHasone sod phosphate 10 MG/ML VIAL IVPUSH (20:59)
[2023-02-04 21:00] LABS: Influenza A PCR NEGATIVE (Negative); Influenza B PCR NEGATIVE (Negative); Resp Syncy Virus RNA Qual PCR NEGATIVE (Negative); SARS COV2 PCR INHOUSE NEGATIVE (Negative)
--- NOTE | 2023-02-04 21:00 | PC.NURSE ---
late entry- pt brought back to room. iv placed. pt daughter at bedside. pt reports L upper arm pain and asked this rn to take bp on L forearm
[2023-02-04 21:47] VITALS: BP 109/63; PULSE 108; RESP 15; TEMP 39.4; O2SAT 96
--- NOTE | 2023-02-04 21:50 | PC.NURSE ---
late entry- pt reports to this rn feeling very warm. this rn removed pt blanket that she brought in from home. this rn assisted pt to L side to take rectal temp. 102.[address] michaud made aware at this time. orders placed pt medicated according to mar
[2023-02-04] MEDS: Ibuprofen 800 MG TABLET PO (22:17)
[2023-02-04 22:29] LABS: D Dimer High Sensitivity 256 NG/ML
[2023-02-04 23:11] VITALS: BP 104/58; PULSE 96; RESP 19; TEMP 37.2; O2SAT 95
[2023-02-05 01:11] VITALS: BP 104/60; PULSE 90; RESP 18; TEMP 36.9; O2SAT 95
[2023-02-05] MEDS: iohexoL 350 MG/ML 100 ML INFUS..BTL 65 ML IV (01:13)
[2023-02-05 01:15] LABS: Appearance Urine Clear; Color Urine Yellow; Glucose Urine UA >=1000 mg/dL (Negative); Leukocyte Esterase Urine Negative (Negative); Nitrite Urine Negative (Negative); Specific Gravity - Urine >= 1.030 (1.005-1.025); UMIC TRIGGER UACC YES; Urine Blood Negative (Negative); Urine Ketones 15 mg/dL (Negative); Urine Protein Negative (Neg-Trace)
[2023-02-05 01:17] LABS: Bacteria Urine Trace (None Seen); Hyaline Casts Urine 0-2 /LPF (0-2); RBC Urine 0-2 /HPF (0-2); WBC Urine 0-5 /HPF (0-5)
--- NOTE | 2023-02-05 01:58 | PC.NURSE ---
Pt a&o, denies any sob or chest pain at this time. Iv removed. Reviewed discharge instructions with pt. pt verbalized understanding. No sign of distress upon discharge.
--- NOTE | 2023-02-05 02:00 | PC.NURSE ---
Notified SHELLEY Valera pt was discharged home.
== END 2023-02-05 02:23 | disposition home or self-care (01) ==
PROVIDERS: Physician Assistant; Emergency Provider Internal Medicine; PCP Internal Medicine
DX: R07.9 Chest pain, unspecified (principal); R50.9 Fever, unspecified; Z20.822 Contact with and (suspected) exposure to COVID-19; Z20.828 Contact with and (suspected) exposure to other viral communicable diseases; E11.9 Type 2 diabetes mellitus without complications; I10 Essential (primary) hypertension; E78.5 Hyperlipidemia, unspecified; Z79.899 Other long term (current) drug therapy; Z79.4 Long term (current) use of insulin; Z79.02 Long term (current) use of antithrombotics/antiplatelets
CPT/HCPCS: 0241U; 36415; 71045; 71275; 80053; 81001; 83605; 83690; 83735; 84484; 85025; 85379; 85610; 85730; 87040; 93005; 96374; 96375; 99284; 99285; J1100; J1885; Q9967

== ENCOUNTER 2023-02-19 15:34 | Emergency (ER) | payer OTHER, SELFPAY ==
--- NOTE | ~2023-02-19 | XR_ITS ---
EXAMINATION: XR CHEST CLINICAL INFORMATION: SOB and asthma. COMPARISON: None available. TECHNIQUE: 2 views of the chest were obtained. FINDINGS: No significant abnormality is noted involving the heart, lungs, mediastinum, bony thorax or soft tissues. XR/XR chest 2V IMPRESSION: Unremarkable chest examination.
--- NOTE | 2023-02-19 16:27 | ED.ASTHMA ---
HPI - Asthma General Chief Complaint: Dyspnea <ED Oneil - Last Filed: 02/19/23 16:32> Stated Complaint: sob asthma <ED Oneil - Last Filed: 02/19/23 16:32> Time Seen by Provider: 02/19/23 19:01 <ED Oneil - Last Filed: 02/19/23 16:32> Source: patient <Alessandra Olson MD - Last Filed: 02/20/23 01:33> Mode of arrival: ambulatory <Alessandra Olson MD - Last Filed: 02/20/23 01:33> Limitations: no limitations <Alessandra Olson MD - Last Filed: 02/20/23 01:33> History of Present Illness HPI Narrative: Patient comes to the emergency room complaining of an asthma exacerbation. Patient states she has an inhaler at home , believes the inhaler was since she has not had an asthma exacerbation in a long time, possibly over a year. Patient denies chest pain, abdominal pain, UTI symptoms. <Alessandra Olson MD - Last Filed: 02/20/23 01:33> Related Data Home Medications: Home Medications Medication Instructions Recorded Confirmed amlodipine 10 mg tablet 10 mg PO DAILY 12/12/20 08/10/22 telmisartan 80 1 tab PO DAILY 12/12/20 08/10/22 mg-hydrochlorothiazide 25 mg tablet montelukast 10 mg tablet 10 mg PO BEDTIME 11/26/21 08/10/22 amitriptyline 25 mg tablet 1 tab PO BEDTIME 07/14/22 08/10/22 naproxen 500 mg tablet 1 tab PO BID PRN Pain 07/14/22 08/10/22 empagliflozin 25 mg tablet 1 tab PO DAILY 07/29/22 08/10/22 (Jardiance) metformin 1,000 mg tablet 1 tab PO BID 07/29/22 08/10/22 albuterol sulfate 2.5 mg/3 mL 2.5 mg inhalation BID 08/08/22 08/10/22 (0.083 %) solution for nebulization blood sugar diagnostic (FreeStyle 08/08/22 Lite Strips) blood-glucose meter,continuous 08/08/22 (Dexcom G6 Automobile Washer Steam) blood-glucose sensor (Dexcom G6 08/08/22 Sensor device) blood-glucose transmitter (Dexcom 08/08/22 G6 Transmitter device) insulin pump cart,cont inf,BT #5 ea 12/11/22 (Omnipod Dash Pods (Gen 4) subcutaneous cartridge) tirzepatide 10 mg/0.5 mL 10 mg subcut QWEEK 12/11/22 subcutaneous pen injector (Homarunbarro) Previous Rx's Medication Instructions Recorded albuterol sulfate 90 mcg/actuation 1 inh inhalation QID PRN shortness 12/22/20 aerosol inhaler of breath or wheezing #8.5 grams nebulizers (AeroEclipse II #1 ea 12/22/20 Nebulizer) nebulizers (Compact Compressor #1 ea 12/31/20 Nebulizer) rosuvastatin 40 mg tablet 40 mg PO BEDTIME 90 days #90 tabs 03/13/21 blood-glucose meter (FreeStyle #1 ea 07/19/21 Lite Meter kit) lancets 28 gauge (FreeStyle #200 ea 07/19/21 Lancets) fluticasone fur. 100 mcg-umeclid 1 inh inhalation DAILY 30 days #1 08/04/22 62.5 mcg-vilant 25 mcg ea inhalat.powder (Trelegy Ellipta) omalizumab 150 mg subcutaneous 300 mg subcut Q2W 28 days #4 ea 08/12/22 solution (Xolair) insulin lispro 100 unit/mL See Rx Instructions subcut TID #20 09/05/22 subcutaneous solution (Humalog mL U-100 Insulin) cholecalciferol (vitamin D3) 50 50 mcg PO DAILY #30 caps 12/11/22 mcg (2,000 unit) capsule insulin glargine-yfgn 100 unit/mL 30 unit (0.3 mL) subcut DAILY #20 12/11/22 subcutaneous solution (Semglee mL (insulin glargine-yfgn)) ezetimibe 10 mg tablet 10 mg PO DAILY #90 tabs 01/15/23 albuterol sulfate 90 mcg/actuation 2 puff inhalation Q4-6H PRN 02/20/23 aerosol inhaler shortness of breath or wheezing #8.5 grams prednisone 50 mg tablet 50 mg PO DAILY #5 tabs 02/20/23 <DE Oneil - Last Filed: 02/19/23 16:32> Allergies/Adverse Reactions: Allergies Allergy/AdvReac Type Severity Reaction Status Date / Time canagliflozin [Invokana] Allergy Unknown rash Verified 12/11/22 09:39 liraglutide Allergy Unknown rash Verified 12/11/22 09:39 animals Allergy Unknown rash Uncoded 12/11/22 09:39 Pt states no known food Allergy Unknown Unknown Uncoded 12/11/22 09:39 allerg <ED Oneil - Last Filed: 02/19/23 16:32> Review of Systems Review of Systems: Constitutional : No Weight loss, No Fever, No Chills, No Night Sweats, No Fatigue, No Malaise ENT/Mouth : No Hearing loss, No Ear Pain, No Nasal Congestion, No Sinus Pain, No Hoarseness, No sore throat, No Rhinorrhea, No Swallowing Difficulty Eyes: No Eye Pain, No Swelling, No Redness, No Foreign Body, No Discharge, No Vision Changes Cardiovascular : No Chest Pain, No SOB, No Dyspnea on Exertion, No Orthopnea, No Edema, No Palpitations Respiratory : No Cough, No Sputum, cutting a Wheezing, No Smoke Exposure, complaining of Dyspnea Gastrointestinal : No Nausea, No Vomiting, No Diarrhea, No Constipation, No abdominal Pain, No Hematochezia, No Melena Genitourinary : no irregular bleeding, No Dysuria, No Urinary Frequency, No Hematuria, No Urinary Incontinence, No Urgency, No Flank Pain, No Urinary Flow Changes, No Hesitancy Musculoskeletal : No joint pain, No Myalgias, No Joint Swelling Skin : No Skin Lesions, No rash Neuro : No Weakness, No Numbness, No Paresthesias, No Loss of Consciousness, No Dizziness, No Headache Psych : No Anxiety/Panic, No Depression, No SI/HI/AH/VH, No Social Issues, Heme/Lymph: No Bruising, No Bleeding,No Lymphadenopathy Endocrine : No Polyuria, No Polydipsia, No Temperature Intolerance <Alessandra Olson MD - Last Filed: 02/20/23 01:33> [facility] Past Medical History Medical History: Medical History Asthma Diabetes Diabetes type 2, uncontrolled Diabetic 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 with type 2 diabetes mellitus Ectopic Eosinophilia Hyperlipidemia 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 Obesity due to excess calories Vitamin D deficiency <ED Oneil - Last Filed: 02/19/23 16:32> Surgical History: Surgical History History of surgical procedure on mouth Hx of ectopic <ED Oneil - Last Filed: 02/19/23 16:32> Family History Family History: Family History Father Diabetes mellitus Mother Diabetes mellitus Ovarian cancer <ED Oneil - Last Filed: 02/19/23 16:32> Social History Social History: Social History Household Members: Spouse Housing: House Do you presently have visiting nurse or other home services: No Alcohol intake: never Patient Tobacco Use Status: Never used Tobacco Advance Directives: Yes Advance Directives on File: Yes Advance Directives Date on File: 07/15/22 service: No Current occupational status: employed <ED Oneil - Last Filed: 02/19/23 16:32> Physical Exam Vital Signs: Vital Signs: Last Vital Signs Temp 98.9 F 02/19/23 23:41 Pulse 102 H 02/19/23 23:41 Resp 02/19/23 23:41 BP 149/70 H 02/19/23 23:41 Pulse Ox 94 02/19/23 23:41 O2 Del Method Room Air 02/19/23 23:41 BMI result Body Mass Index 38.7 <ED Oneil - Last Filed: 02/19/23 16:32> Vital Signs: Last Vital Signs Temp 98.9 F 02/19/23 23:41 Pulse 102 H 02/19/23 23:41 Resp 02/19/23 23:41 BP 149/70 H 02/19/23 23:41 Pulse Ox 94 02/19/23 23:41 O2 Del Method Room Air 02/19/23 23:41 BMI result Body Mass Index 38.7 <Alessandra Olson MD - Last Filed: 02/20/23 01:33> Const: Other: Appearance: Alert. Oriented X3. No acute distress. Eyes: Pupils equal, round and reactive to light. ENT: Pharynx normal. Neck: Normal inspection. Neck supple. No lymph nodes noted. No crepitus CVS: Normal heart rate and rhythm. Pulses normal. Normal S1 and S2 Respiratory: No respiratory distress. Very mild bilateral occasional wheezing, good air movement Abdomen: Soft and nontender. No rigidity. No distention. Skin: Skin warm and dry. Normal skin color. Normal skin turgor. Extremities: No lower extremity edema. No Lacerations. No Rash Neuro: Oriented X 3. No motor deficit. No sensory deficit. Moving all extremities. No slurred speech. CN 2 through 12 grossly intact Psych: calm, cooperative, normal affect <Alessandra Olson MD - Last Filed: 02/20/23 01:33> Course Course Course Narrative: RME - 47 yo female with history of asthma, DM on insulin, HLD, obesity who presents to the ER for asthma symptoms for the last 2 days. She has headache, been coughing and SOB. She has chest discomfort with coughing only. Had 15 episodes of diarrhea last night. Thinks she is dehydrated. No relief with nebulizers and inhalers at home. Tachycardic in triage, last did a neb 2 hours ago. Lungs diminished at the bases but no wheezing, speaking in complete sentences and saturating well. Plan: CXR, EKG and lab workup <ED Oneil - Last Filed: 02/19/23 16:32> Medications Administered Discontinued Medications Generic Name Dose Route Start Last Admin Trade Name Freq PRN Reason Stop Dose Admin Albuterol Sulfate 10 mg 02/19/23 19:28 02/19/23 19:46 Albuterol Sulfate (0.083%) 2.5 Mg/3 Ml Vial.Neb INHALE 02/19/23 19:29 10 mg ONCE ONE Administration Ketorolac Tromethamine 60 mg 02/19/23 19:30 02/19/23 19:36 Ketorolac Tromethamine 60 Mg/2 Ml Vial IM 02/19/23 19:31 60 mg ONCE ONE Administration Prednisone 60 mg 02/19/23 19:28 02/19/23 19:36 Prednisone 20 Mg Tablet PO 02/19/23 19:29 60 mg ONCE ONE Administration <ED Oneil - Last Filed: 02/19/23 16:32> Medications Administered Discontinued Medications Generic Name Dose Route Start Last Admin Trade Name Freq PRN Reason Stop Dose Admin Albuterol Sulfate 10 mg 02/19/23 19:28 02/19/23 19:46 Albuterol Sulfate (0.083%) 2.5 Mg/3 Ml Vial.Neb INHALE 02/19/23 19:29 10 mg ONCE ONE Administration Ketorolac Tromethamine 60 mg 02/19/23 19:30 02/19/23 19:36 Ketorolac Tromethamine 60 Mg/2 Ml Vial IM 02/19/23 19:31 60 mg ONCE ONE Administration Prednisone 60 mg 02/19/23 19:28 02/19/23 19:36 Prednisone 20 Mg Tablet PO 02/19/23 19:29 60 mg ONCE ONE Administration <Alessandra Olson MD - Last Filed: 02/20/23 01:33> Medical Decision Making Medical Decision Making [facility] Narrative: Was given p.o. prednisone, an hour long albuterol treatment, patient feeling much better. White blood cell count within normal limits. Patient did spike a fever, COVID negative. Patient likely having a viral syndrome that exacerbated the asthma. <Alessandra Olson MD - Last Filed: 02/20/23 01:33> Differential Diagnosis Differential Diagnoses: The differential diagnosis associated with the presentation includes (Viral syndrome, asthma, pneumonia) <Alessandra Olson MD - Last Filed: 02/20/23 01:33> Lab Data [facility] Lab Attestation statement: I reviewed the patient's lab results. <Alessandra Olson MD - Last Filed: 02/20/23 01:33> Result Diagrams: 02/19/23 23:26 02/19/23 23:26 <ED Oneil - Last Filed: 02/19/23 16:32> Labs: Lab Results 02/19/23 02/19/23 02/19/23 Range/Units 16:44 16:44 23:26 WBC 9.7 (4.8-10.8) X10*3/uL RBC 5.19 (4.20-5.50) X10*6/uL Hgb 13.8 (12.0-16.0) g/dl Hct 41.1 (37.0-47.0) % MCV 79.2 L (80.0-98.0) fL MCH 26.6 L (27.0-33.0) pg MCHC 33.6 (31.0-35.0) g/dl RDW 14.5 (11.0-16.0) % Plt Count 310 (160-400) X10*3/uL MPV 9.6 (9.4-12.3) fL Immature Gran % (Auto) 0.2 (0.0-0.4) % Neut % (Auto) 87.2 H (45-73) % Lymph % (Auto) 9.5 L (20-40) % Branch % (Auto) 2.6 (2-11) % Eos % (Auto) 0.2 (0-4) % Baso % (Auto) 0.3 (0-2) % Lymph # (Auto) 0.9 L (1.2-4.9) X10*3/uL Branch # (Auto) 0.3 (0.1-1.2) X10*3/uL Eos # (Auto) 0.0 (0.0-0.4) X10*3/uL Baso # (Auto) 0.0 (0.0-0.2) X10*3/uL Abs Immat Gran (auto) 0.02 (0.00-0.03) X10*3/uL Absolute Neuts (auto) 8.4 H (2.0-8.3) x10*3/uL Absolute Nucleated RBC 0.000 (0.0-0.012) X10*3/uL Nucleated RBC % (auto) 0.0 (0.0-0.2) /100WBC Sodium (135-145) mmol/L Potassium (3.3-5.1) mmol/L Chloride (96-108) mmol/L Carbon Dioxide (22-29) mmol/L Anion Gap (12-20) BUN (9-16) mg/dL Creatinine (0.5-1.4) mg/dL Estim Creat Clear Calc Estimated GFR Random Glucose (60-115) mg/dL Calcium (8.4-10.2) mg/dL Magnesium (1.6-2.6) mg/dL Total Bilirubin (0.0-1.0) mg/dL Direct Bilirubin (0.0-0.5) mg/dL AST (5-31) U/L ALT (0-31) U/L Alkaline Phosphatase (39-117) U/L Total Protein (6.5-8.0) g/dL Albumin (3.5-5.0) g/dL COVID-19 (DANK) Negative (Negative) COVID-19 Clin Com See Note Influenza Type A (AL) Negative (Negative) Influenza Type B (AL) Negative (Negative) Influenza A & B Note See Note 02/19/23 Range/Units 23:26 WBC (4.8-10.8) X10*3/uL RBC (4.20-5.50) X10*6/uL Hgb (12.0-16.0) g/dl Hct (37.0-47.0) % MCV (80.0-98.0) fL MCH (27.0-33.0) pg MCHC (31.0-35.0) g/dl RDW (11.0-16.0) % Plt Count (160-400) X10*3/uL MPV (9.4-12.3) fL Immature Gran % (Auto) (0.0-0.4) % Neut % (Auto) (45-73) % Lymph % (Auto) (20-40) % Branch % (Auto) (2-11) % Eos % (Auto) (0-4) % Baso % (Auto) (0-2) % Lymph # (Auto) (1.2-4.9) X10*3/uL Branch # (Auto) (0.1-1.2) X10*3/uL Eos # (Auto) (0.0-0.4) X10*3/uL Baso # (Auto) (0.0-0.2) X10*3/uL Abs Immat Gran (auto) (0.00-0.03) X10*3/uL Absolute Neuts (auto) (2.0-8.3) x10*3/uL Absolute Nucleated RBC (0.0-0.012) X10*3/uL Nucleated RBC % (auto) (0.0-0.2) /100WBC Sodium 137 (135-145) mmol/L Potassium 4.0 (3.3-5.1) mmol/L Chloride 106 (96-108) mmol/L Carbon Dioxide 21 L (22-29) mmol/L Anion Gap 14 (12-20) BUN 11 (9-16) mg/dL Creatinine 0.63 (0.5-1.4) mg/dL Estim Creat Clear Calc 134.9 Estimated GFR > 60 Random Glucose 282 H (60-115) mg/dL Calcium 8.7 (8.4-10.2) mg/dL Magnesium 2.0 (1.6-2.6) mg/dL Total Bilirubin 1.7 H (0.0-1.0) mg/dL Direct Bilirubin 0.4 (0.0-0.5) mg/dL AST 19 (5-31) U/L ALT 28 (0-31) U/L Alkaline Phosphatase 87 (39-117) U/L Total Protein 6.5 (6.5-8.0) g/dL Albumin 4.0 (3.5-5.0) g/dL COVID-19 (DANK) (Negative) COVID-19 Clin Com Influenza Type A (AL) (Negative) Influenza Type B (AL) (Negative) Influenza A & B Note <ED Oneil - Last Filed: 02/19/23 16:32> Lab Results 02/19/23 02/19/23 02/19/23 Range/Units 16:44 16:44 23:26 WBC 9.7 (4.8-10.8) X10*3/uL RBC 5.19 (4.20-5.50) X10*6/uL Hgb 13.8 (12.0-16.0) g/dl Hct 41.1 (37.0-47.0) % MCV 79.2 L (80.0-98.0) fL MCH 26.6 L (27.0-33.0) pg MCHC 33.6 (31.0-35.0) g/dl RDW 14.5 (11.0-16.0) % Plt Count 310 (160-400) X10*3/uL MPV 9.6 (9.4-12.3) fL Immature Gran % (Auto) 0.2 (0.0-0.4) % Neut % (Auto) 87.2 H (45-73) % Lymph % (Auto) 9.5 L (20-40) % Branch % (Auto) 2.6 (2-11) % Eos % (Auto) 0.2 (0-4) % Baso % (Auto) 0.3 (0-2) % Lymph # (Auto) 0.9 L (1.2-4.9) X10*3/uL Branch # (Auto) 0.3 (0.1-1.2) X10*3/uL Eos # (Auto) 0.0 (0.0-0.4) X10*3/uL Baso # (Auto) 0.0 (0.0-0.2) X10*3/uL Abs Immat Gran (auto) 0.02 (0.00-0.03) X10*3/uL Absolute Neuts (auto) 8.4 H (2.0-8.3) x10*3/uL Absolute Nucleated RBC 0.000 (0.0-0.012) X10*3/uL Nucleated RBC % (auto) 0.0 (0.0-0.2) /100WBC Sodium (135-145) mmol/L Potassium (3.3-5.1) mmol/L Chloride (96-108) mmol/L Carbon Dioxide (22-29) mmol/L Anion Gap (12-20) BUN (9-16) mg/dL Creatinine (0.5-1.4) mg/dL Estim Creat Clear Calc Estimated GFR Random Glucose (60-115) mg/dL Calcium (8.4-10.2) mg/dL Magnesium (1.6-2.6) mg/dL Total Bilirubin (0.0-1.0) mg/dL Direct Bilirubin (0.0-0.5) mg/dL AST (5-31) U/L ALT (0-31) U/L Alkaline Phosphatase (39-117) U/L Total Protein (6.5-8.0) g/dL Albumin (3.5-5.0) g/dL COVID-19 (DANK) Negative (Negative) COVID-19 Clin Com See Note Influenza Type A (AL) Negative (Negative) Influenza Type B (AL) Negative (Negative) Influenza A & B Note See Note 02/19/23 Range/Units 23:26 WBC (4.8-10.8) X10*3/uL RBC (4.20-5.50) X10*6/uL Hgb (12.0-16.0) g/dl Hct (37.0-47.0) % MCV (80.0-98.0) fL MCH (27.0-33.0) pg MCHC (31.0-35.0) g/dl RDW (11.0-16.0) % Plt Count (160-400) X10*3/uL MPV (9.4-12.3) fL Immature Gran % (Auto) (0.0-0.4) % Neut % (Auto) (45-73) % Lymph % (Auto) (20-40) % Branch % (Auto) (2-11) % Eos % (Auto) (0-4) % Baso % (Auto) (0-2) % Lymph # (Auto) (1.2-4.9) X10*3/uL Branch # (Auto) (0.1-1.2) X10*3/uL Eos # (Auto) (0.0-0.4) X10*3/uL Baso # (Auto) (0.0-0.2) X10*3/uL Abs Immat Gran (auto) (0.00-0.03) X10*3/uL Absolute Neuts (auto) (2.0-8.3) x10*3/uL Absolute Nucleated RBC (0.0-0.012) X10*3/uL Nucleated RBC % (auto) (0.0-0.2) /100WBC Sodium 137 (135-145) mmol/L Potassium 4.0 (3.3-5.1) mmol/L Chloride 106 (96-108) mmol/L Carbon Dioxide 21 L (22-29) mmol/L Anion Gap 14 (12-20) BUN 11 (9-16) mg/dL Creatinine 0.63 (0.5-1.4) mg/dL Estim Creat Clear Calc 134.9 Estimated GFR > 60 Random Glucose 282 H (60-115) mg/dL Calcium 8.7 (8.4-10.2) mg/dL Magnesium 2.0 (1.6-2.6) mg/dL Total Bilirubin 1.7 H (0.0-1.0) mg/dL Direct Bilirubin 0.4 (0.0-0.5) mg/dL AST 19 (5-31) U/L ALT 28 (0-31) U/L Alkaline Phosphatase 87 (39-117) U/L Total Protein 6.5 (6.5-8.0) g/dL Albumin 4.0 (3.5-5.0) g/dL COVID-19 (DANK) (Negative) COVID-19 Clin Com Influenza Type A (AL) (Negative) Influenza Type B (AL) (Negative) Influenza A & B Note <Alessandra Olson MD - Last Filed: 02/20/23 01:33> Independent Interpretation I performed an independent interpretation of an: Plain X-Ray (Chest x-ray interpreted by me: No infiltrate) <Alessandra Olson MD - Last Filed: 02/20/23 01:33> Radiology Impression Discussion of test interpretation with radiology: I have reviewed the radiologist's reading. <Alessandra Olson MD - Last Filed: 02/20/23 01:33> Radiologist Impression: FINDINGS: No significant abnormality is noted involving the heart, lungs, mediastinum, bony thorax or soft tissues. XR/XR chest 2V IMPRESSION: Unremarkable chest examination. <Alessandra Olson MD - Last Filed: 02/20/23 01:33> Discharge Plan Discharge Clinical Impression: Asthma <ED Oneil - Last Filed: 02/19/23 16:32> Patient Disposition: Home, Self-Care <ED Oneil - Last Filed: 02/19/23 16:32> Instructions: Asthma (ED) <ED Oneil - Last Filed: 02/19/23 16:32> Additional Instructions: Please follow-up with your primary care physician tomorrow. If you have any worsening or new symptoms, please return to the emergency room or call 911 <ED Oneil - Last Filed: 02/19/23 16:32> Prescriptions: New albuterol sulfate 90 mcg/actuation HFA aerosol inhaler 2 puff inhalation Q4-6H PRN (Reason: shortness of breath or wheezing) Qty: 8.5 0RF prednisone 50 mg tablet 50 mg PO DAILY Qty: 5 0RF No Action Xolair 150 mg recon soln 300 mg subcut Q2W 28 Days Qty: 4 12RF Rx Instructions: requires multiple injection sites; do not exceed 150 mg per injection site insulin lispro [Humalog U-100 Insulin] 100 unit/mL solution See Rx Instructions subcut TID Qty: 20 6RF Rx Instructions: USES A PUMP, UP TO 150 U/DAYsubcutaneously 3 times a day; ezetimibe 10 mg tablet 10 mg PO DAILY Qty: 90 4RF (DME) nebulizers [AeroEclipse II Nebulizer] [facility] [place] See Rx Instructions .ROUTE .MEDSUPPLY Qty: 1 0RF Rx Instructions: As directed albuterol sulfate 90 mcg/actuation HFA aerosol inhaler 1 inh inhalation QID PRN (Reason: shortness of breath or wheezing) Qty: 8.5 0RF (DME) nebulizers [Compact Compressor Nebulizer] [facility] [place] See Rx Instructions .ROUTE .MEDSUPPLY Qty: 1 0RF Rx Instructions: As directed amitriptyline 25 mg tablet 1 tab PO BEDTIME naproxen 500 mg tablet 1 tab PO BID PRN (Reason: Pain) metformin 1,000 mg tablet 1 tab PO BID Jardiance 25 mg tablet 1 tab PO DAILY (DME) blood-glucose meter [FreeStyle Lite Meter] Kit See Rx Instructions .ROUTE .MEDSUPPLY Qty: 1 0RF Rx Instructions: As directed (DME) lancets [FreeStyle Lancets] 28 [place] [facility] [place] Rx Instructions .ROUTE .MEDSUPPLY Qty: 200 1RF Rx Instructions: 5x/day montelukast 10 mg tablet 10 mg PO BEDTIME telmisartan-hydrochlorothiazid 80-25 mg tablet 1 tab PO DAILY amlodipine 10 mg tablet 10 mg PO DAILY rosuvastatin 40 mg tablet 40 mg PO BEDTIME 90 Days Qty: 90 2RF (DME) Dexcom G6 [employer] [facility] See Rx Instructions .Route Rx Instructions: As directed (DME) Dexcom G6 Sensor Device See Rx Instructions .Route Rx Instructions: As directed (DME) Dexcom G6 Transmitter Device See Rx Instructions .Route Rx Instructions: As directed (DME) FreeStyle Lite Strips Strip See Rx Instructions .Route Rx Instructions: As directed albuterol sulfate 2.5 mg /3 mL (0.083 %) solution for nebulization 2.5 mg inhalation BID Trelegy Ellipta 100-62.5-25 mcg blister with device 1 inh inhalation DAILY 30 Days Qty: 1 6RF (DME) Omnipod Dash Pods (Gen 4) Cartridge See Rx Instructions subcut DIRECTED Qty: 5 Rx Instructions: As directed Mounjaro 10 mg/0.5 mL pen injector 10 mg subcut QWEEK insulin glargine-yfgn [Semglee(insulin glargine-yfgn)] 100 unit/mL solution 30 unit subcut DAILY Qty: 20 5RF cholecalciferol (vitamin D3) 50 mcg (2,000 unit) capsule 50 mcg PO DAILY Qty: 30 5RF <ED Oneil - Last Filed: 02/19/23 16:32>
[2023-02-19 16:28] VITALS: BP 154/91; PULSE 112; RESP 20; TEMP 36.8; O2SAT 98; BMI 38.7
--- NOTE | 2023-02-19 16:30 | ECG_ITS ---
Test Reason : sob Blood Pressure : / mmHG Vent. Rate : 121 BPM Atrial Rate : 121 BPM P-R Int : 130 ms QRS Dur : 094 ms QT Int : 320 ms P-R-T Axes : 062 062 030 degrees QTc Int : 454 ms Sinus tachycardia Otherwise normal ECG When compared with ECG of 04-FEB-2023 20:01, No significant change was found Referred By: Debbie Alvarado Electronically Signed By:Dony Be
[2023-02-19 18:07] LABS: COVID-19 Test Negative (Negative); IDNOW Serial# 9DB6401D; IDNOW Serial# BCCEAD1C; Influenza A Negative (Negative); Influenza B2 Negative (Negative)
[2023-02-19] MEDS: predniSONE 20 MG TABLET 60 MG PO (19:36)
[2023-02-19] MEDS: Ketorolac Tromethamine 60 MG/2 ML VIAL IM (19:36)
[2023-02-19] MEDS: Albuterol Sulfate (0.083%) 2.5 MG/3 ML VIAL.NEB 10 MG INHALE (19:46)
[2023-02-19 19:48] VITALS: RESP 16
[2023-02-19 20:27] VITALS: BP 120/53; PULSE 107; TEMP 38.3; O2SAT 96
[2023-02-19 23:33] LABS: Basophils Percent Auto 0.3 % (0-2); Eosinophils Percent Auto 0.2 % (0-4); Hematocrit 41.1 % (37.0-47.0); Hemoglobin 13.8 g/dl (12.0-16.0); Imm Gran Abs Auto 0.02 X10*3/uL (0.00-0.03); Imm Gran Pct Auto 0.2 % (0.0-0.4); Lymphocytes Absolute Auto 0.9 X10*3/uL (1.2-4.9); Lymphocytes Percent Auto 9.5 % (20-40); MANUAL DIFF FLAG NO; Mean Corpuscular HGB Conc 33.6 g/dl (31.0-35.0); Mean Corpuscular Hemoglobin 26.6 pg (27.0-33.0); Mean Corpuscular Volume 79.2 fL (80.0-98.0); Mean Platelet Volume 9.6 fL (9.4-12.3); Monocytes Absolute Auto 0.3 X10*3/uL (0.1-1.2); Monocytes Percent Auto 2.6 % (2-11); Neutrophils Absolute Auto 8.4 x10*3/uL (2.0-8.3); Neutrophils Percent Auto 87.2 % (45-73); Platelet Count 310 X10*3/uL (160-400); Red Blood Count 5.19 X10*6/uL (4.20-5.50); Red Cell Distribution Width 14.5 % (11.0-16.0); White Blood Count 9.7 X10*3/uL (4.8-10.8)
[2023-02-19 23:41] VITALS: BP 149/70; PULSE 102; RESP 19; TEMP 37.2; O2SAT 94
[2023-02-19 23:48] LABS: Alanine Aminotransferase 28 U/L (0-31); Alkaline Phosphatase 87 U/L (39-117); Anion Gap 14 (12-20); Aspartate Amino Transferase 19 U/L (5-31); Bilirubin Direct 0.4 mg/dL (0.0-0.5); Bilirubin Total 1.7 mg/dL (0.0-1.0); Blood Urea Nitrogen 11 mg/dL (9-16); Calcium 8.7 mg/dL (8.4-10.2); Carbon Dioxide 21 mmol/L (22-29); Chloride 106 mmol/L (96-108); Creatinine Clr Calc Pharmacy 134.9; Estimated Glomerular Filt Rate > 60; Glucose Random 282 mg/dL (60-115); Sodium 137 mmol/L (135-145); Total Protein 6.5 g/dL (6.5-8.0)
== END 2023-02-20 01:53 | disposition home or self-care (01) ==
PROVIDERS: Physician Assistant; Emergency Provider Emergency Medicine; PCP Internal Medicine
DX: J45.909 Unspecified asthma, uncomplicated (principal); R06.02 Shortness of breath; E11.9 Type 2 diabetes mellitus without complications; Z20.822 Contact with and (suspected) exposure to COVID-19; Z20.828 Contact with and (suspected) exposure to other viral communicable diseases; Z79.899 Other long term (current) drug therapy; Z79.4 Long term (current) use of insulin
CPT/HCPCS: 71046; 80048; 80076; 83735; 85025; 87502; 87635; 93005; 94640; 96372; 99284; J1885

== ENCOUNTER 2023-02-23 08:13 | Outpatient (REF) | payer OTHER, SELFPAY | END 2023-02-23 08:14 | disposition home or self-care (01) | LOC: HO.MDS 08:13 | PROVIDERS: Visit Provider Internal Medicine Pulmonary Disease | DX: J45.50 Severe persistent asthma, uncomplicated (principal) | CPT/HCPCS: 96372; J2357 ==

== ENCOUNTER 2023-02-26 05:46 | Inpatient (IN) | payer OTHER, SELFPAY ==
[2023-02-26] VITALS (9 sets, daily range): BP systolic 104–131; BP diastolic 56–86; PULSE 98–108; RESP 18–24; TEMP 35.9–37.2; O2SAT 89–96; BMI 37.0
--- NOTE | ~2023-02-26 | XR_ITS ---
EXAMINATION: XR chest 1V CLINICAL INFORMATION: Reason for Exam cough COMPARISON: Prior chest x-ray 02/19/2023 TECHNIQUE: XR chest 1V Tubes and lines: None Lungs and pleura: Both lungs are clear. Heart and mediastinum: The mediastinum is within normal limits.. Bones/soft tissue: Skeletal structures included are normal for patient's age. XR/XR chest 1V IMPRESSION: No radiographic evidence of acute cardiopulmonary disease.
[2023-02-26 06:42] LABS: Basophils Percent Auto 0.3 % (0-2); Eosinophils Absolute Auto 0.4 X10*3/uL (0.0-0.4); Eosinophils Percent Auto 4.5 % (0-4); Hematocrit 45.2 % (37.0-47.0); Hemoglobin 14.8 g/dl (12.0-16.0); Imm Gran Abs Auto 0.04 X10*3/uL (0.00-0.03); Imm Gran Pct Auto 0.4 % (0.0-0.4); Lymphocytes Absolute Auto 4.3 X10*3/uL (1.2-4.9); Lymphocytes Percent Auto 44.9 % (20-40); MANUAL DIFF FLAG NO; Mean Corpuscular HGB Conc 32.7 g/dl (31.0-35.0); Mean Corpuscular Hemoglobin 26.1 pg (27.0-33.0); Mean Corpuscular Volume 79.9 fL (80.0-98.0); Mean Platelet Volume 9.4 fL (9.4-12.3); Monocytes Absolute Auto 0.5 X10*3/uL (0.1-1.2); Monocytes Percent Auto 5.4 % (2-11); Neutrophils Absolute Auto 4.2 x10*3/uL (2.0-8.3); Neutrophils Percent Auto 44.5 % (45-73); Platelet Count 372 X10*3/uL (160-400); Red Blood Count 5.66 X10*6/uL (4.20-5.50); Red Cell Distribution Width 14.2 % (11.0-16.0); White Blood Count 9.5 X10*3/uL (4.8-10.8)
[2023-02-26 06:54] LABS: COVID-19 Test Negative (Negative); IDNOW Serial# BCCEAD1C; Lactic Acid 1.3 mmol/L (0.5-2.0)
--- NOTE | 2023-02-26 06:57 | PC.NURSE ---
dr michaud made aware of pt status. labs obtained iv placed. rn to rn report given to oncoming nurse
[2023-02-26 06:59] LABS: Alanine Aminotransferase 39 U/L (0-31); Albumin Level 4.2 g/dL (3.5-5.0); Alkaline Phosphatase 85 U/L (39-117); Anion Gap 16 (12-20); Aspartate Amino Transferase 16 U/L (5-31); Bilirubin Total 1.2 mg/dL (0.0-1.0); Blood Urea Nitrogen 14 mg/dL (9-16); Calcium 9.5 mg/dL (8.4-10.2); Carbon Dioxide 24 mmol/L (22-29); Chloride 104 mmol/L (96-108); Creatinine Clr Calc Pharmacy 135.9; Estimated Glomerular Filt Rate > 60; Glucose Random 197 mg/dL (60-115); Potassium 3.7 mmol/L (3.3-5.1); Sodium 140 mmol/L (135-145); Total Protein 7.1 g/dL (6.5-8.0)
[2023-02-26 07:07] LABS: IDNOW Serial# 08D9AD1C; Influenza A Negative (Negative); Influenza B2 Negative (Negative)
--- NOTE | 2023-02-26 07:36 | ED_ITS ---
HPI - URI/Sore Throat General Chief Complaint: Upper Respiratory Symptoms Stated Complaint: asthma Time Seen by Provider: 02/26/23 07:15 Source: patient Mode of arrival: ambulatory Limitations: no limitations History of Present Illness HPI Narrative: 47-year-old female came in for evaluation of cough with greenish sputum, shortness of breath wheezing and intermittent fever. Patient was seen 2 times in the last 2 weeks in the emergency department for asthma exacerbation patient just finished a course of steroid with no relief of her symptoms patient admitted to using her medication as prescribed. No recent travel, no lower extremity swelling or tenderness, no history of DVT or PE. No history of smoking cigarettes. Related Data Home Medications Medication Instructions Recorded Confirmed amlodipine 10 mg tablet 10 mg PO DAILY 12/12/20 08/10/22 telmisartan 80 1 tab PO DAILY 12/12/20 08/10/22 mg-hydrochlorothiazide 25 mg tablet montelukast 10 mg tablet 10 mg PO BEDTIME 11/26/21 08/10/22 amitriptyline 25 mg tablet 1 tab PO BEDTIME 07/14/22 08/10/22 naproxen 500 mg tablet 1 tab PO BID PRN Pain 07/14/22 08/10/22 empagliflozin 25 mg tablet 1 tab PO DAILY 07/29/22 08/10/22 (Jardiance) metformin 1,000 mg tablet 1 tab PO BID 07/29/22 08/10/22 albuterol sulfate 2.5 mg/3 mL 2.5 mg inhalation BID 08/08/22 08/10/22 (0.083 %) solution for nebulization blood sugar diagnostic (FreeStyle 08/08/22 Lite Strips) blood-glucose meter,continuous 08/08/22 (Dexcom G6 Access Lead) blood-glucose sensor (DexRed [employer] G6 08/08/22 Sensor device) blood-glucose transmitter (Dexcom 08/08/22 G6 Transmitter device) insulin pump cart,cont inf,BT #5 ea 12/11/22 (Omnipod Dash Pods (Gen 4) subcutaneous cartridge) tirzepatide 10 mg/0.5 mL 10 mg subcut QWEEK 12/11/22 subcutaneous pen injector (Gustabo) Previous Rx's Medication Instructions Recorded albuterol sulfate 90 mcg/actuation 1 inh inhalation QID PRN shortness 12/22/20 aerosol inhaler of breath or wheezing #8.5 grams nebulizers (AeroEclipse II #1 ea 12/22/20 Nebulizer) nebulizers (Compact Compressor #1 ea 12/31/20 Nebulizer) rosuvastatin 40 mg tablet 40 mg PO BEDTIME 90 days #90 tabs 03/13/21 blood-glucose meter (FreeStyle #1 ea 07/19/21 Lite Meter kit) lancets 28 gauge (FreeStyle #200 ea 07/19/21 Lancets) fluticasone fur. 100 mcg-umeclid 1 inh inhalation DAILY 30 days #1 08/04/22 62.5 mcg-vilant 25 mcg ea inhalat.powder (Trelegy Ellipta) omalizumab 150 mg subcutaneous 300 mg subcut Q2W 28 days #4 ea 08/12/22 solution (Xolair) insulin lispro 100 unit/mL See Rx Instructions subcut TID #20 09/05/22 subcutaneous solution (Humalog mL U-100 Insulin) cholecalciferol (vitamin D3) 50 50 mcg PO DAILY #30 caps 12/11/22 mcg (2,000 unit) capsule insulin glargine-yfgn 100 unit/mL 30 unit (0.3 mL) subcut DAILY #20 12/11/22 subcutaneous solution (Semglee mL (insulin glargine-yfgn)) ezetimibe 10 mg tablet 10 mg PO DAILY #90 tabs 01/15/23 albuterol sulfate 90 mcg/actuation 2 puff inhalation Q4-6H PRN 02/20/23 aerosol inhaler shortness of breath or wheezing #8.5 grams prednisone 50 mg tablet 50 mg PO DAILY #5 tabs 02/20/23 Allergies Allergy/AdvReac Type Severity Reaction Status Date / Time canagliflozin [Invokana] Allergy Unknown rash Verified 12/11/22 09:39 liraglutide Allergy Unknown rash Verified 12/11/22 09:39 animals Allergy Unknown rash Uncoded 12/11/22 09:39 Pt states no known food Allergy Unknown Unknown Uncoded 12/11/22 09:39 allerg Review of Systems Review of Systems: All other systems are reviewed and are negative Constitutional: Reports as per HPI and Reports no additional constitutional complaints Eyes: Reports as per HPI and Reports no additional eye complaints Reports system reviewed and no additional complaints, except as documented Cardiovascular: Reports as per HPI and Reports no additional cardiovascular complaints Respiratory: Reports as per HPI and Reports no additional respiratory complaints Gastrointestinal: Reports as per HPI and Reports no additional gastrointestinal complaints Genitourinary: Reports no additional female genitourinary complaints Musculoskeletal: Reports no additional musculoskeletal complaints Skin/Breast: Reports system reviewed and no additional complaints, except as docu Psychiatric: Reports no additional psychiatric complaints Endocrine: Reports no additional endocrine complaints Hematologic/Lymphatic: Reports no additional hematologic/lymphatic complaints Allergic/Immunologic: Reports no additional allergic/immunologic complaints Reports system reviewed and no additional complaints, except as documented and Reports Abnormal speech present [facility] Past Medical History Medical History Asthma Diabetes Diabetes type 2, uncontrolled Diabetic 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 with type 2 diabetes mellitus Ectopic Eosinophilia Hyperlipidemia 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 Obesity due to excess calories Vitamin D deficiency Surgical History History of surgical procedure on mouth Hx of ectopic Family History Family History Father Diabetes mellitus Mother Diabetes mellitus Ovarian cancer Social History Social History Household Members: Spouse Housing: House Do you presently have visiting nurse or other home services: No Alcohol intake: never Patient Tobacco Use Status: Never used Tobacco Advance Directives: Yes Advance Directives on File: Yes Advance Directives Date on File: 07/15/22 service: No Current occupational status: employed Physical Exam Vital Signs: Vital Signs: Last Vital Signs Temp 97.7 F 02/26/23 07:10 Pulse 104 H 02/26/23 07:48 Resp 18 02/26/23 07:48 BP 111/78 02/26/23 07:10 Pulse Ox 89 L 02/26/23 09:27 O2 Del Method Room Air 02/26/23 08:03 BMI result Body Mass Index 37.0 Vital signs have been reviewed as appeared to be correct. Blood pressure normal. Heart rate normal. Respiration rate normal. Temperature normal. Oxygen saturation normal. Appearance: Alert. Oriented X3. No acute distress. Head: Normal external exam. Normocephalic. Atraumatic. No Tran signs noted. No raccoon eyes noted Eyes: PERRLA. EOMI. Conjunctiva and sclera normal. Eyelids normal. ENT: TM's Normal. Pharynx normal. Uvula midline. Moist mucous membranes. No trismus noted. No drooling noted. No muffled voice noted. Neck: Normal inspection. Neck supple. FROM. No adenopathy. Thyroid Normal. No meningeal signs. No neck mass noted. CVS: Normal heart rate and rhythm. Heart sound normal. No murmurs noted. Pulses normal throughout. Respiratory: No respiratory distress. Painless inspiration. Breath sounds normal. Expiratory wheezing with prolonged expiration. Chest nontender. No accessory muscle usage noted or decreased air movement noted. Abdomen: Soft and nontender. Bowel sounds normal in all 4 quadrants. No distention noted. No organomegaly noted. No visible injury noted. Back: No CVA tenderness. Full range of motion noted. Skin: Skin warm and dry. Normal skin color. Normal skin turgor. No rashes/lesions/lacerations noted. Extremities: No lower extremity edema. Extremities exhibit normal range of motion. Extremities nontender. Neuro: Oriented X 3. Cranial nerve exam: II-XII are grossly intact No motor deficit. No sensory deficit. Reflexes normal. Course Course Course Narrative: 47-year-old female diabetic and long history of asthma currently she is on prednisone came in today 3rd visit to the ED in the last 2 weeks for persistent of wheezing and shortness of breath, no fever, no chills. Patient has 91% O2 sat at rest goes down when she ambulates to 88%. Will admit the patient for further bronchodilator. Medications Administered Discontinued Medications Generic Name Dose Route Start Last Admin Trade Name Freq PRN Reason Stop Dose Admin Albuterol Sulfate 7.5 mg 02/26/23 07:35 02/26/23 07:45 Albuterol Sulfate (0.083%) 2.5 Mg/3 Ml Vial.Neb INHALE 02/26/23 07:36 7.5 mg ONCE ONE Administration Magnesium Sulfate 2 gm in 50 mls @ 25 mls/hr 02/26/23 07:35 02/26/23 09:44 Magnesium Sulfate/H2o IV 02/26/23 09:34 Infused ONCE ONE Infusion Methylprednisolone Sodium Succinate 125 mg 02/26/23 07:35 02/26/23 07:55 Methylprednisolone Sod Succ 125 Mg/2 Ml Vial IVPUSH 02/26/23 07:36 125 mg ONCE ONE Administration Medical Decision Making Differential Diagnosis Differential Diagnoses: The differential diagnosis associated with the presentation includes (Pneumonia, bronchitis, viral infection, asthma exacerbation.) Admission/Observation Consideration of admission/observation: Escalation of care including admission/observation considered Consult Healthcare Provider Management of the patient was discussed with: Hospitalist Lab Data MDM Lab Attestation statement: I reviewed the patient's lab results. 02/26/23 06:37 02/26/23 06:37 Labs: Lab Results 02/26/23 02/26/23 02/26/23 Range/Units 06:36 06:36 06:36 WBC (4.8-10.8) X10*3/uL RBC (4.20-5.50) X10*6/uL Hgb (12.0-16.0) g/dl Hct (37.0-47.0) % MCV (80.0-98.0) fL MCH (27.0-33.0) pg MCHC (31.0-35.0) g/dl RDW (11.0-16.0) % Plt Count (160-400) X10*3/uL MPV (9.4-12.3) fL Immature Gran % (Auto) (0.0-0.4) % Neut % (Auto) (45-73) % Lymph % (Auto) (20-40) % Faulkner % (Auto) (2-11) % Eos % (Auto) (0-4) % Baso % (Auto) (0-2) % Lymph # (Auto) (1.2-4.9) X10*3/uL [place]ner # (Auto) (0.1-1.2) X10*3/uL Eos # (Auto) (0.0-0.4) X10*3/uL Baso # (Auto) (0.0-0.2) X10*3/uL Abs Immat Gran (auto) (0.00-0.03) X10*3/uL Absolute Neuts (auto) (2.0-8.3) x10*3/uL Absolute Nucleated RBC (0.0-0.012) X10*3/uL Nucleated RBC % (auto) (0.0-0.2) /100WBC Sodium (135-145) mmol/L Potassium (3.3-5.1) mmol/L Chloride (96-108) mmol/L Carbon Dioxide (22-29) mmol/L Anion Gap (12-20) BUN (9-16) mg/dL Creatinine (0.5-1.4) mg/dL Estim Creat Clear Calc Estimated GFR Random Glucose (60-115) mg/dL Lactic Acid 1.3 (0.5-2.0) mmol/L Calcium (8.4-10.2) mg/dL Total Bilirubin (0.0-1.0) mg/dL AST (5-31) U/L ALT (0-31) U/L Alkaline Phosphatase (39-117) U/L Total Protein (6.5-8.0) g/dL Albumin (3.5-5.0) g/dL COVID-19 (DANK) Negative (Negative) COVID-19 Clin Com See Note Influenza Type A (AL) Negative (Negative) Influenza Type B (AL) Negative (Negative) Influenza A & B Note See Note 02/26/23 02/26/23 Range/Units 06:37 06:37 WBC 9.5 (4.8-10.8) X10*3/uL RBC 5.66 H (4.20-5.50) X10*6/uL Hgb 14.8 (12.0-16.0) g/dl Hct 45.2 (37.0-47.0) % MCV 79.9 L (80.0-98.0) fL MCH 26.1 L (27.0-33.0) pg MCHC 32.7 (31.0-35.0) g/dl RDW 14.2 (11.0-16.0) % Plt Count 372 (160-400) X10*3/uL MPV 9.4 (9.4-12.3) fL Immature Gran % (Auto) 0.4 (0.0-0.4) % Neut % (Auto) 44.5 L (45-73) % Lymph % (Auto) 44.9 H (20-40) % Faulkner % (Auto) 5.4 (2-11) % Eos % (Auto) 4.5 H (0-4) % Baso % (Auto) 0.3 (0-2) % Lymph # (Auto) 4.3 (1.2-4.9) X10*3/uL [place]ner # (Auto) 0.5 (0.1-1.2) X10*3/uL Eos # (Auto) 0.4 (0.0-0.4) X10*3/uL Baso # (Auto) 0.0 (0.0-0.2) X10*3/uL Abs Immat Gran (auto) 0.04 H (0.00-0.03) X10*3/uL Absolute Neuts (auto) 4.2 (2.0-8.3) x10*3/uL Absolute Nucleated RBC 0.000 (0.0-0.012) X10*3/uL Nucleated RBC % (auto) 0.0 (0.0-0.2) /100WBC Sodium 140 (135-145) mmol/L Potassium 3.7 (3.3-5.1) mmol/L Chloride 104 (96-108) mmol/L Carbon Dioxide 24 (22-29) mmol/L Anion Gap 16 (12-20) BUN 14 (9-16) mg/dL Creatinine 0.61 (0.5-1.4) mg/dL Estim Creat Clear Calc 135.9 Estimated GFR > 60 Random Glucose 197 H (60-115) mg/dL Lactic Acid (0.5-2.0) mmol/L Calcium 9.5 D (8.4-10.2) mg/dL Total Bilirubin 1.2 H (0.0-1.0) mg/dL AST 16 (5-31) U/L ALT 39 H (0-31) U/L Alkaline Phosphatase 85 (39-117) U/L Total Protein 7.1 (6.5-8.0) g/dL Albumin 4.2 (3.5-5.0) g/dL COVID-19 (DANK) (Negative) COVID-19 Clin Com Influenza Type A (AL) (Negative) Influenza Type B (AL) (Negative) Influenza A & B Note Independent Interpretation I performed an independent interpretation of an: Plain X-Ray (Chest: No acute intrathoracic pathology.) Radiology Impression Discussion of test interpretation with radiology: I have reviewed the radiologist's reading. Chronic Conditions Patient?s care impacted by: Other (Asthma) Discharge Plan Discharge Clinical Impression: Asthma exacerbation Patient Disposition: Admitted As Inpatient
[2023-02-26] MEDS: Albuterol Sulfate (0.083%) 2.5 MG/3 ML VIAL.NEB 7.5 MG INHALE (07:45)
[2023-02-26] MEDS: methylPREDNISolone Sod Succ 125 MG/2 ML VIAL IVPUSH (07:55)
[2023-02-26] MEDS: Magnesium Sulfate/H2O 2 GM/50 ML PIGGYBACK IV (07:55)
--- NOTE | 2023-02-26 08:02 | PC.NURSE ---
Alert and oriented, receiving breathing treatment at this time. Medicated per the JAN. Blood cultures ordered, first set obtained.
--- NOTE | 2023-02-26 09:31 | PC.NURSE ---
Ambulating pulse o2 between 88/89% on room air.
--- NOTE | 2023-02-26 10:13 | PC.NURSE ---
Pt in room sleeping, oxygen dipping down to 80's. Placed on 2L nasal cannula now 93-96%.
--- NOTE | 2023-02-26 11:07 | PHA.MEDREC ---
Pharmacy Consult ? Medication Reconciliation Pharmacy has completed the medication reconciliation. Med rec complete after reviewing claim history and speaking to patient.
--- NOTE | 2023-02-26 11:20 | PM.IMHP ---
History of Present Illness Date of Service: 02/26/23 Chief Complaint: Shortness of breath 47-year-old female with known history of asthma presents to the ER today with worsening shortness of breath along with productive cough of green sputum. She also admits intermittent fever. She has been seen twice and the last 2 weeks and completed a course of oral steroids and oral antibiotics. She states her inhalers are not effective at this time. She will be admitted failing outpatient therapies Review of Systems Review of Systems: Denies chest pain Admit shortness of breath Denies nausea vomiting diarrhea Admits fever no chills [facility] Medical History (Updated 02/26/23 @ 11:27 by Spenser Mcclure DO) Asthma Diabetes Diabetes type 2, uncontrolled Diabetic 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 with type 2 diabetes mellitus Ectopic Eosinophilia Hyperlipidemia Hypertension [facility] (current) use of insulin Obesity due to excess calories Vitamin D deficiency Family History Father Diabetes mellitus Mother Diabetes mellitus Ovarian cancer Surgical History History of surgical procedure on mouth Hx of ectopic Social History Household Members: Spouse Housing: House Do you presently have visiting nurse or other home services: No Alcohol intake: never Patient Tobacco Use Status: Never used Tobacco Advance Directives: Yes Advance Directives on File: Yes Advance Directives Date on File: 07/15/22 service: No Current occupational status: employed Meds Allergies Allergy/AdvReac Type Severity Reaction Status Date / Time canagliflozin [Invokana] Allergy Unknown rash Verified 12/11/22 09:39 liraglutide Allergy Unknown rash Verified 12/11/22 09:39 animals Allergy Unknown rash Uncoded 12/11/22 09:39 Pt states no known food Allergy Unknown Unknown Uncoded 12/11/22 09:39 allerg Active Medications: Current Medications Albuterol Sulfate (Albuterol Sulfate (0.083%) 2.5 Mg/3 Ml Vial.Neb) 2.5 mg INHALE BID PRN PRN Reason: Shortness Of Breath Or Wheezing Albuterol Sulfate (Albuterol Sulfate 90 Mcg 8 Gm Inhaler) 2 puff INHALE Q4-6H PRN PRN Reason: shortness of breath or wheezing Amitriptyline HCl (Amitriptyline Hcl 25 Mg Tablet) 25 mg PO BEDTIME [facility] Amlodipine Besylate (Amlodipine Besylate 10 Mg Tablet) 10 mg PO DAILY [facility]; Protocol Azithromycin (Azithromycin 500 Mg Tablet) 500 mg PO DAILY ONE Stop: 02/26/23 11:18 Ezetimibe (Ezetimibe 10 Mg Tablet) 10 mg PO DAILY [facility] Empagliflozin (Empagliflozin 25 Mg Tablet) 25 mg PO DAILY [facility] Enoxaparin Sodium (Enoxaparin Sodium 40 Mg/0.4 Ml Syringe) 40 mg SUBCUT Q24H [facility] Glucose (Glucose Gel 15 Gm Gel..Gram.) 15 gm PO Q15M PRN; Protocol PRN Reason: per Hypoglycemia Standing Ord. Dextrose (D10) 250 mls @ 750 mls/hr IV Q15M PRN; Protocol PRN Reason: per Hypoglycemia Standing Ord. Ceftriaxone Sodium 1 gm/ (Sodium Chloride) 50 mls @ 100 mls/hr IV Q24H [facility] Insulin Human Lispro (Insulin Lispro 100 Unit/Ml 3 Ml Vial) 0 unit SUBCUT QIDACHS [facility]; Protocol Metformin HCl (Metformin Hcl 1,000 Mg Tablet) mg PO BIDWM [facility] Methylprednisolone Sodium Succinate (Methylprednisolone Sod Succ 125 Mg/2 Ml Vial) 60 mg IVPUSH Q6H [facility] Non-Formulary Medication (Rosuvastatin) 40 mg PO BEDTIME [facility] Non-Formulary Medication (Telmisartan-Hydrochlorothiazid) 1 tab PO DAILY [facility] Pharmacy Consult (Consult Rx Perform Med Rec) 1 each MISCELLANE ONCE PRN PRN Reason: Consult order Sodium Chloride (0.9 % Sodium Chloride Flush 3 Ml Syringe) 3 ml IVFLUSH QSHIFT [facility] Vitamin D (Cholecalciferol (Vitamin D3) 25 Mcg Tablet) 50 mcg PO DAILY [facility] Home Medications Medication Instructions Recorded Confirmed Last Taken Type amlodipine 10 mg tablet 10 mg PO DAILY 12/12/20 02/26/23 02/26/23 History telmisartan 80 1 tab PO DAILY 12/12/20 02/26/23 02/26/23 History mg-hydrochlorothiazide 25 mg tablet amitriptyline 25 mg tablet 1 tab PO BEDTIME 07/14/22 02/26/23 02/25/23 History empagliflozin 25 mg tablet 1 tab PO DAILY 07/29/22 02/26/23 02/26/23 History (Jardiance) metformin 1,000 mg tablet 1 tab PO BIDWM 07/29/22 02/26/23 02/26/23 History albuterol sulfate 2.5 mg/3 mL 2.5 mg inhalation BID PRN 08/08/22 02/26/23 Unknown History (0.083 %) solution for nebulization Shortness Of Breath Or Wheezing blood sugar diagnostic (FreeStyle 08/08/22 Unknown History Lite Strips) blood-glucose meter,continuous 08/08/22 Unknown History (Dexcom G6 [employer] Vice President) blood-glucose sensor (Dexcom G6 08/08/22 Unknown History Sensor device) blood-glucose transmitter (Dexcom 08/08/22 Unknown History G6 Transmitter device) insulin pump cart,cont inf,BT #5 ea 12/11/22 Unknown History (Omnipod Dash Pods (Gen 4) subcutaneous cartridge) tirzepatide 10 mg/0.5 mL 10 mg subcut FR 12/11/22 02/26/23 02/20/23 History subcutaneous pen injector (Gustabo) azithromycin 250 mg tablet 250 mg PO DAILY 02/26/23 02/26/23 02/26/23 History insulin glargine-yfgn 100 unit/mL 30 unit subcut BEDTIME PRN BLOOD 02/26/23 02/26/23 Unknown History subcutaneous solution (Semglee SUGAR >250 (insulin glargine-yfgn)) prednisone 10 mg tablet 10 mg PO TID 02/26/23 02/26/23 02/26/23 History Physical Exam Vital Signs and Narrative: Vital Signs: Last Vital Signs Temp 97.7 F 02/26/23 07:10 Pulse 104 H 02/26/23 07:48 Resp 18 02/26/23 07:48 BP 111/78 02/26/23 07:10 Pulse Ox 89 L 02/26/23 09:27 O2 Del Method Room Air 02/26/23 08:03 BMI result Body Mass Index 37.0 Const: Other: Awake alert able to speak in full sentences Resp: Other: Diminished throughout with dense expiratory wheezes at bases Cardio: Other: No S4; positive S1-S2; no S3 murmurs rubs or gallops GI: Other: Soft nontender nondistended normoactive bowel sounds Neuro: Other: Cranial nerves 2-12 grossly intact as tested. Motor is 5/5 all extremities. Sensation is intact. Cognition appropriate Extrem: Other: No edema bilaterally Results Labs 02/26/23 06:37 02/26/23 06:37 Labs: Laboratory Results - last 24 hr 02/26/23 02/26/23 02/26/23 06:36 06:36 06:36 MCV MCH MCHC RDW Plt Count MPV Immature Gran % (Auto) Neut % (Auto) Lymph % (Auto) [place] % (Auto) Eos % (Auto) Baso % (Auto) Lymph # (Auto) [place] # (Auto) Eos # (Auto) Baso # (Auto) Abs Immat Gran (auto) Absolute Neuts (auto) Absolute Nucleated RBC Nucleated RBC % (auto) Anion Gap Estim Creat Clear Calc Estimated GFR Random Glucose Lactic Acid 1.3 Calcium Total Bilirubin AST ALT Alkaline Phosphatase Total Protein Albumin COVID-19 (DANK) Negative COVID-19 Clin Com See Note Influenza Type A (AL) Negative Influenza Type B (AL) Negative Influenza A & B Note See Note 02/26/23 02/26/23 06:37 06:37 MCV 79.9 L MCH 26.1 L MCHC 32.7 RDW 14.2 Plt Count 372 MPV 9.4 Immature Gran % (Auto) 0.4 Neut % (Auto) 44.5 L Lymph % (Auto) 44.9 H [place] % (Auto) 5.4 Eos % (Auto) 4.5 H Baso % (Auto) 0.3 Lymph # (Auto) 4.3 [place] # (Auto) 0.5 Eos # (Auto) 0.4 Baso # (Auto) 0.0 Abs Immat Gran (auto) 0.04 H Absolute Neuts (auto) 4.2 Absolute Nucleated RBC 0.000 Nucleated RBC % (auto) 0.0 Anion Gap 16 Estim Creat Clear Calc 135.9 Estimated GFR > 60 Random Glucose 197 H Lactic Acid Calcium 9.5 D Total Bilirubin 1.2 H AST 16 ALT 39 H Alkaline Phosphatase 85 Total Protein 7.1 Albumin 4.2 COVID-19 (DANK) COVID-19 Clin Com Influenza Type A (AL) Influenza Type B (AL) Influenza A & B Note Imaging Radiologist's Impressions: Impressions Chest X-Ray 02/26/23 07:27 IMPRESSION: No radiographic evidence of acute cardiopulmonary disease. Assessment and Plan (1) Asthma exacerbation: Status: Acute (2) Diabetes: Status: Acute (3) Hypertension: Qualifiers: Hypertension type: essential hypertension Qualified Code(s): I10 - Essential (primary) hypertension Status: Acute Plan 47-year-old female with known history of asthma presents today with worsening shortness of breath that is refractory to her outpatient therapies; this is her 3rd visit to ER in 2 weeks. She responded well to a DuoNeb IV steroids and magnesium. She will be admitted for asthma exacerbation failing outpatient therapies 1. Acute hypoxic respiratory failure secondary to asthma exacerbation -methylprednisolone 60 mg IV q.6 hours -ceftriaxone 1 g Q 24 hours/azithromycin 500 mg p.o. x3 days -supplemental O2 to maintain sats greater than equal 90% -DuoNebs q.4 hours while awake 2. Dm II -continue metformin 500 mg b.i.d. -lispro correctional scale.. POC q.i.d. a.c. and HS -adjust as indicated 3. Hypertension -acceptable control on current therapies -adjust as indicated Full code Denys Patient will require 2 inpatient days going forward for IV steroids and antibiotics to treat asthma exacerbation that has failed outpatient therapies Time Spent With Patient Time: Total time managing care of this patient today ____ minutes. Quality Stroke Does the patient have a stroke diagnosis?: No VTE Prior VTE?: No VTE Risk Level:: Medical - moderate - high VTE Device Contraindication: Treatment Not Indicated VTE Drug Contraindication: N/A - Med Ordered
[2023-02-26 11:56] LABS: Glucose, Whole Blood 277 mg/dL (60-115)
[2023-02-26] MEDS: Enoxaparin Sodium 40 MG/0.4 ML SYRINGE SUBCUT (12:22)
[2023-02-26] MEDS: cefTRIAXone sodium 1 GM in 0.9 % Sodium Chloride 50 ML IV (12:23)
[2023-02-26] MEDS: methylPREDNISolone Sod Succ 125 MG/2 ML VIAL 60 MG IVPUSH ×2 (12:23→23:11)
[2023-02-26 13:34] LABS: Glucose, Whole Blood 347 mg/dL (60-115)
[2023-02-26] MEDS: Insulin Lispro 100 UNIT/ML 3 ML VIAL SUBCUT ×3 (13:35→21:26)
[2023-02-26 17:06] LABS: Glucose, Whole Blood 325 mg/dL (60-115)
[2023-02-26] MEDS: metFORMIN HCl 1,000 MG TABLET 1000 MG PO (17:16)
--- NOTE | 2023-02-26 17:35 | PC.NURSE ---
Addendum entered by Sukumar Her RN 02/26/23 18:00: informed hospitalist pt IV no longer working and pt is a hard stick. multiple attempts failed by tax staff accountant Original Note: informed pt c/o L sided chest pain 06/25, sharp, states she's been having it since her asthma exacerbation started, comes and goes
[2023-02-26 20:14] LABS: Glucose, Whole Blood 305 mg/dL (60-115)
[2023-02-26] MEDS: Albuterol Sulfate (0.083%) 2.5 MG/3 ML VIAL.NEB INHALE (22:00)
[2023-02-26] MEDS: 0.9 % Sodium Chloride Flush 3 ML SYRINGE IVFLUSH (23:17)
[2023-02-27 04:33] VITALS: BP 113/53; PULSE 84; RESP 16; TEMP 36.6; O2SAT 95
[2023-02-27] MEDS: methylPREDNISolone Sod Succ 125 MG/2 ML VIAL 60 MG IVPUSH ×4 (05:12→23:15)
[2023-02-27 06:52] LABS: MANUAL DIFF FLAG NO
[2023-02-27 06:59] LABS: Basophils Percent Auto 0.1 % (0-2); Hematocrit 38.9 % (37.0-47.0); Hemoglobin 13.1 g/dl (12.0-16.0); Imm Gran Abs Auto 0.16 X10*3/uL (0.00-0.03); Imm Gran Pct Auto 1.2 % (0.0-0.4); Lymphocytes Absolute Auto 2.7 X10*3/uL (1.2-4.9); Lymphocytes Percent Auto 19.7 % (20-40); Mean Corpuscular HGB Conc 33.7 g/dl (31.0-35.0); Mean Corpuscular Volume 80.2 fL (80.0-98.0); Mean Platelet Volume 10.1 fL (9.4-12.3); Monocytes Absolute Auto 0.4 X10*3/uL (0.1-1.2); Monocytes Percent Auto 2.8 % (2-11); Neutrophils Absolute Auto 10.5 x10*3/uL (2.0-8.3); Neutrophils Percent Auto 76.2 % (45-73); Platelet Count 359 X10*3/uL (160-400); Red Blood Count 4.85 X10*6/uL (4.20-5.50); Red Cell Distribution Width 14.1 % (11.0-16.0); White Blood Count 13.8 X10*3/uL (4.8-10.8)
[2023-02-27 07:00] VITALS: BP 121/70; PULSE 82; RESP 18; TEMP 36.6; O2SAT 96
[2023-02-27 07:19] LABS: Alanine Aminotransferase 31 U/L (0-31); Albumin Level 3.9 g/dL (3.5-5.0); Alkaline Phosphatase 73 U/L (39-117); Anion Gap 16 (12-20); Aspartate Amino Transferase 13 U/L (5-31); Bilirubin Total 1.1 mg/dL (0.0-1.0); Blood Urea Nitrogen 15 mg/dL (9-16); Calcium 9.2 mg/dL (8.4-10.2); Carbon Dioxide 22 mmol/L (22-29); Chloride 104 mmol/L (96-108); Creatinine Clr Calc Pharmacy 131.7; Estimated Glomerular Filt Rate > 60; Glucose Fasting 223 mg/dL (60-99); Potassium 3.8 mmol/L (3.3-5.1); Sodium 138 mmol/L (135-145); Total Protein 6.6 g/dL (6.5-8.0)
[2023-02-27 07:23] LABS: Glucose, Whole Blood 221 mg/dL (60-115)
[2023-02-27] MEDS: Insulin Lispro 100 UNIT/ML 3 ML VIAL SUBCUT ×4 (07:46→21:17)
[2023-02-27] MEDS: Valsartan 160 MG TABLET PO (07:48)
[2023-02-27] MEDS: hydroCHLOROthiazide 25 MG TABLET PO (07:48)
[2023-02-27] MEDS: Empagliflozin 25 MG TABLET PO (07:48)
[2023-02-27] MEDS: Cholecalciferol (Vitamin D3) 25 MCG TABLET 50 MCG PO (07:48)
[2023-02-27] MEDS: amLODIPine Besylate 10 MG TABLET PO (07:48)
[2023-02-27] MEDS: Azithromycin 500 MG TABLET PO (07:48)
[2023-02-27] MEDS: metFORMIN HCl 1,000 MG TABLET 1000 MG PO ×2 (07:49→17:43)
[2023-02-27] MEDS: 0.9 % Sodium Chloride Flush 3 ML SYRINGE IVFLUSH ×3 (07:49→21:17)
[2023-02-27] MEDS: Ezetimibe 10 MG TABLET PO (07:49)
--- NOTE | 2023-02-27 09:07 | MHC.CM.PN ---
Addendum entered by Mariela Mitchell 02/27/23 09:12: PCP is Shandra Holman. Original Note: Female 47 DX Asthma exacerbation She lives with her daughters. She is independent with all functional mobility. She uses Oxygen; which is not ordered by MD. She is employed by [employer]. Her HCP is on file. She is fully vaccinated. DP home self care. Pts dtr will provide transport home. She see Dr Lewis for Asthma.
--- NOTE | 2023-02-27 09:33 | P.CDIM_ITS ---
PROVIDER RESPONSE TEXT: To clarify, the appropriate diagnosis supported by the clinical indicators: Severe persistent: With exacerbation QUERY TEXT: PHYSICIAN'S DOCUMENTATION REQUEST Date of Query: 02/27/2023 09:24 AM EDT Patient Name: Vonnie Courtney Admit Date: 02/26/2023 Dear Spenser Mcclure, A review of the medical record indicates additional documentation may be needed. Please review below and update the documentation accordingly. The diagnosis of asthma was documented in the record on 02/26/23. Additional clinical indicators from the record include: Per MD progress note 02/26/23: treated with -methylprednisolone 60 mg IV q.6 hours -ceftriaxone 1 g Q 24 hours/azithromycin 500 mg p.o. x3 days -supplemental O2 to maintain sats greater than equal 90% -DuoNebs q.4 hours while awake Based on the above, please clarify in the Progress Notes further specificity regarding the type and a cuity of the asthma: Mild intermittent Please specify if with or without acute exacerbation or status asthmaticus Mild persistent Please specify if with or without acute exacerbation or status asthmaticus Moderate persistent Please specify if with or without acute exacerbation or status asthmaticus Severe persistent Please specify if with or without acute exacerbation or status asthmaticus Exercise induced Please specify if with or without acute exacerbation or status asthmaticus Chronic obstructive asthma and indicate if with acute lower respiratory infection Please specify if with or without acute exacerbation or status asthmaticus Asthma with underlying COPD and indicate if with acute lower respiratory infection Please specify if with or without acute exacerbation or status asthmaticus Other (explain) Clinically unable to determine (explain) Thank you, Vonnie Rodgers RN Use of terms such as suspected, likely, concern for, or probable (associated with a specific diagnosi s that is being evaluated, monitored, or treated as if it exists) are acceptable and can be coded in the inpatient se tting, when documented at the time of discharge. Please use your independent medical judgment in providing your response. THIS QUERY IS PART OF THE PERMANENT MEDICAL RECORD
[2023-02-27 11:06] LABS: Glucose, Whole Blood 288 mg/dL (60-115)
[2023-02-27] MEDS: Enoxaparin Sodium 40 MG/0.4 ML SYRINGE SUBCUT (11:31)
[2023-02-27] MEDS: Albuterol Sulfate (0.083%) 2.5 MG/3 ML VIAL.NEB INHALE ×2 (11:50→21:50)
[2023-02-27 11:52] VITALS: PULSE 82; RESP 16; O2SAT 95
[2023-02-27] MEDS: cefTRIAXone sodium 1 GM in 0.9 % Sodium Chloride 50 ML IV (12:00)
--- NOTE | 2023-02-27 14:53 | HO.PM.IMPN ---
Subjective Subjective Date of Service: 02/27/23 Interval History: Breathing slightly improved overnight. Continue to tolerate steroids Review of Systems Denies chest pain Admit shortness of breath Denies nausea vomiting diarrhea Admits fever no chills Physical Exam Vital Signs: Vital Signs: Last Vital Signs Temp 97.8 F 02/27/23 07:00 Pulse 82 02/27/23 11:52 Resp 16 02/27/23 11:52 BP 121/70 02/27/23 07:00 Pulse Ox 96 02/27/23 07:00 O2 Del Method Nasal Cannula 02/27/23 07:00 O2 Flow Rate 2 02/27/23 07:00 BMI result Body Mass Index 37.0 Const: Other: Awake alert able to speak in full sentences Resp: Other: Diminished throughout with dense expiratory wheezes at bases Cardio: Other: No S4; positive S1-S2; no S3 murmurs rubs or gallops GI: Other: Soft nontender nondistended normoactive bowel sounds Neuro: Other: Cranial nerves 2-12 grossly intact as tested. Motor is 5/5 all extremities. Sensation is intact. Cognition appropriate Extrem: Other: No edema bilaterally Objective Data Active Medications Albuterol Sulfate (Albuterol Sulfate (0.083%) 2.5 Mg/3 Ml Vial.Neb) 2.5 mg INHALE BID PRN PRN Reason: Shortness Of Breath Or Wheezing Last Admin: 02/27/23 11:50 Dose: 2.5 mg Documented By: REE Albuterol Sulfate (Albuterol Sulfate 90 Mcg 8 Gm Inhaler) 2 puff INHALE Q4H PRN PRN Reason: shortness of breath or wheezing Amitriptyline HCl (Amitriptyline Hcl 25 Mg Tablet) 25 mg PO BEDTIME [facility] Last Admin: 02/26/23 19:55 Dose: Not Given Documented By: KIRK Non-Admin Reason: pt took her own med Amlodipine Besylate (Amlodipine Besylate 10 Mg Tablet) 10 mg PO DAILY [facility]; Protocol Last Admin: 02/27/23 07:48 Dose: 10 mg Documented By: TYRONE Atorvastatin Calcium (Atorvastatin Calcium 80 Mg Tablet) 80 mg PO BEDTIME [facility] Last Admin: 02/26/23 19:55 Dose: Not Given Documented By: KIRK Non-Admin Reason: pt took her own med Ezetimibe (Ezetimibe 10 Mg Tablet) 10 mg PO DAILY [facility] Last Admin: 02/27/23 07:49 Dose: 10 mg Documented By: TYRONE Empagliflozin (Empagliflozin 25 Mg Tablet) 25 mg PO DAILY [facility] Last Admin: 02/27/23 07:48 Dose: 25 mg Documented By: TYRONE Enoxaparin Sodium (Enoxaparin Sodium 40 Mg/0.4 Ml Syringe) 40 mg SUBCUT Q24H [facility] Last Admin: 02/27/23 11:31 Dose: 40 mg Documented By: TYRONE Glucose (Glucose Gel 15 Gm Gel..Gram.) 15 gm PO Q15M PRN; Protocol PRN Reason: per Hypoglycemia Standing Ord. Hydrochlorothiazide (Hydrochlorothiazide 25 Mg Tablet) 25 mg PO DAILY [facility] Last Admin: 02/27/23 07:48 Dose: 25 mg Documented By: TYRONE Dextrose (D10) 250 mls @ 750 mls/hr IV Q15M PRN; Protocol PRN Reason: per Hypoglycemia Standing Ord. Ceftriaxone Sodium 1 gm/ (Sodium Chloride) 50 mls @ 100 mls/hr IV Q24H [facility] Last Infusion: 02/27/23 13:46 Dose: 0 mls/hr Documented By: TYRONE Insulin Human Lispro (Insulin Lispro 100 Unit/Ml 3 Ml Vial) 0 unit SUBCUT QIDACHS [facility]; Protocol Last Admin: 02/27/23 11:30 Dose: 6 unit Documented By: TYRONE Metformin HCl (Metformin Hcl 1,000 Mg Tablet) 1,000 mg PO BIDWM [facility] Last Admin: 02/27/23 07:49 Dose: 1,000 mg Documented By: TYRONE Methylprednisolone Sodium Succinate (Methylprednisolone Sod Succ 125 Mg/2 Ml Vial) 60 mg IVPUSH Q6H [facility] Last Admin: 02/27/23 11:29 Dose: 60 mg Documented By: TYRONE Pharmacy Consult (Consult Rx Perform Med Rec) 1 each MISCELLANE ONCE PRN PRN Reason: Consult order Sodium Chloride (0.9 % Sodium Chloride Flush 3 Ml Syringe) 3 ml IVFLUSH QSHIFT [facility] Last Admin: 02/27/23 07:49 Dose: 3 ml Documented By: TYRONE Valsartan (Valsartan 160 Mg Tablet) 160 mg PO DAILY [facility] Last Admin: 02/27/23 07:48 Dose: 160 mg Documented By: TYRONE Vitamin D (Cholecalciferol (Vitamin D3) 25 Mcg Tablet) 50 mcg PO DAILY [facility] Last Admin: 02/27/23 07:48 Dose: 50 mcg Documented By: TYRONE Labs 02/27/23 05:52 02/27/23 05:52 Labs: Laboratory Results - last 24 hr 02/26/23 02/26/23 02/27/23 16:59 20:06 05:52 MCV 80.2 MCH 27.0 MCHC 33.7 RDW 14.1 Plt Count 359 MPV 10.1 Immature Gran % (Auto) 1.2 H Neut % (Auto) 76.2 H Lymph % (Auto) 19.7 L [place] % (Auto) 2.8 Eos % (Auto) 0.0 Baso % (Auto) 0.1 Lymph # (Auto) 2.7 [place] # (Auto) 0.4 Eos # (Auto) 0.0 Baso # (Auto) 0.0 Abs Immat Gran (auto) 0.16 H Absolute Neuts (auto) 10.5 H Absolute Nucleated RBC 0.000 Nucleated RBC % (auto) 0.0 Anion Gap Estim Creat Clear Calc Estimated GFR POC Glucose 325 H 305 H Fasting Glucose Calcium Total Bilirubin AST ALT Alkaline Phosphatase Total Protein Albumin 02/27/23 02/27/23 02/27/23 05:52 06:59 11:00 MCV MCH MCHC RDW Plt Count MPV Immature Gran % (Auto) Neut % (Auto) Lymph % (Auto) [place] % (Auto) Eos % (Auto) Baso % (Auto) Lymph # (Auto) [place] # (Auto) Eos # (Auto) Baso # (Auto) Abs Immat Gran (auto) Absolute Neuts (auto) Absolute Nucleated RBC Nucleated RBC % (auto) Anion Gap 16 Estim Creat Clear Calc 131.7 Estimated GFR > 60 POC Glucose 221 H 288 H Fasting Glucose 223 H Calcium 9.2 Total Bilirubin 1.1 H AST 13 ALT 31 Alkaline Phosphatase 73 Total Protein 6.6 Albumin 3.9 Microbiology Microbiology Results: Microbiology 02/26/23 08:13 Blood Culture - Preliminary Blood - Venous No growth after 24 hours. 02/26/23 07:58 Blood Culture - Preliminary Blood - Venous No growth after 24 hours. Assessment and Plan (1) Acute respiratory failure: Status: Acute (2) Severe persistent asthma with exacerbation: Status: Acute (3) Diabetes type 2, uncontrolled: Status: Acute Plan 47-year-old female with known history of asthma presents today with worsening shortness of breath that is refractory to her outpatient therapies; this is her 3rd visit to ER in 2 weeks. She responded well to a DuoNeb IV steroids and magnesium. She will be admitted for asthma exacerbation failing outpatient therapies. Minimal improvement over 1. Acute hypoxic respiratory failure secondary to asthma exacerbation -methylprednisolone 60 mg IV q.6 hours -ceftriaxone 1 g Q 24 hours/azithromycin 500 mg p.o. x3 days -supplemental O2 to maintain sats greater than equal 90% -DuoNebs q.4 hours while awake 2. Dm II -continue metformin 500 mg b.i.d. -lispro correctional scale.. POC q.i.d. a.c. and HS -adjust as indicated 3. Hypertension -acceptable control on current therapies -adjust as indicated Full code Clarissax Patient will require ongoing hospitalization for IV steroids to treat severe persistent asthma Time Spent With Patient Time: Total time managing care of this patient today ____ minutes. Quality Stroke Does the patient have a stroke diagnosis?: No VTE Prior VTE?: No VTE Risk Level:: Medical - moderate - high VTE Device Contraindication: Treatment Not Indicated VTE Drug Contraindication: N/A - Med Ordered
[2023-02-27 15:43] VITALS: BP 120/58; PULSE 92; RESP 18; TEMP 36; O2SAT 93
[2023-02-27 16:36] LABS: Glucose, Whole Blood 310 mg/dL (60-115)
[2023-02-27 20:00] VITALS: BP 120/62; PULSE 65; RESP 17; TEMP 36.2; O2SAT 96
[2023-02-27 20:41] LABS: Glucose, Whole Blood 256 mg/dL (60-115)
[2023-02-27] MEDS: Atorvastatin Calcium 80 MG TABLET PO (21:17)
[2023-02-27] MEDS: Amitriptyline HCl 25 MG TABLET PO (21:17)
[2023-02-27 21:51] VITALS: PULSE 76; RESP 14; O2SAT 99
[2023-02-28 03:00] VITALS: BP 109/53; PULSE 74; RESP 15; TEMP 36.7; O2SAT 95
[2023-02-28] MEDS: methylPREDNISolone Sod Succ 125 MG/2 ML VIAL 60 MG IVPUSH ×2 (05:37→11:57)
[2023-02-28 05:57] LABS: MANUAL DIFF FLAG NO
[2023-02-28 06:00] LABS: Basophils Percent Auto 0.1 % (0-2); Hemoglobin 12.6 g/dl (12.0-16.0); Imm Gran Abs Auto 0.21 X10*3/uL (0.00-0.03); Imm Gran Pct Auto 1.3 % (0.0-0.4); Lymphocytes Absolute Auto 2.5 X10*3/uL (1.2-4.9); Lymphocytes Percent Auto 15.1 % (20-40); Mean Corpuscular HGB Conc 33.2 g/dl (31.0-35.0); Mean Corpuscular Hemoglobin 26.7 pg (27.0-33.0); Mean Corpuscular Volume 80.5 fL (80.0-98.0); Mean Platelet Volume 9.7 fL (9.4-12.3); Monocytes Absolute Auto 0.7 X10*3/uL (0.1-1.2); Monocytes Percent Auto 4.1 % (2-11); Neutrophils Percent Auto 79.4 % (45-73); Platelet Count 352 X10*3/uL (160-400); Red Blood Count 4.72 X10*6/uL (4.20-5.50); Red Cell Distribution Width 14.2 % (11.0-16.0); White Blood Count 16.4 X10*3/uL (4.8-10.8)
[2023-02-28 06:16] LABS: Alanine Aminotransferase 23 U/L (0-31); Albumin Level 3.6 g/dL (3.5-5.0); Alkaline Phosphatase 69 U/L (39-117); Anion Gap 14 (12-20); Aspartate Amino Transferase 9 U/L (5-31); Blood Urea Nitrogen 20 mg/dL (9-16); Calcium 8.9 mg/dL (8.4-10.2); Carbon Dioxide 23 mmol/L (22-29); Chloride 108 mmol/L (96-108); Creatinine Clr Calc Pharmacy 133.8; Estimated Glomerular Filt Rate > 60; Glucose Fasting 229 mg/dL (60-99); Potassium 3.9 mmol/L (3.3-5.1); Sodium 141 mmol/L (135-145)
[2023-02-28 07:39] LABS: Glucose, Whole Blood 200 mg/dL (60-115)
[2023-02-28 07:58] VITALS: BP 112/58; PULSE 68; RESP 16; TEMP 36.6; O2SAT 96
[2023-02-28] MEDS: metFORMIN HCl 1,000 MG TABLET 1000 MG PO ×2 (08:18→17:04)
[2023-02-28] MEDS: Cholecalciferol (Vitamin D3) 25 MCG TABLET 50 MCG PO (08:18)
[2023-02-28] MEDS: Ezetimibe 10 MG TABLET PO (08:18)
[2023-02-28] MEDS: Valsartan 160 MG TABLET PO (08:18)
[2023-02-28] MEDS: Empagliflozin 25 MG TABLET PO (08:18)
[2023-02-28] MEDS: amLODIPine Besylate 10 MG TABLET PO (08:18)
[2023-02-28] MEDS: Insulin Lispro 100 UNIT/ML 3 ML VIAL SUBCUT ×3 (08:19→17:05)
[2023-02-28] MEDS: 0.9 % Sodium Chloride Flush 3 ML SYRINGE IVFLUSH (08:19)
[2023-02-28] MEDS: hydroCHLOROthiazide 25 MG TABLET PO (08:19)
--- NOTE | 2023-02-28 11:04 | PM.DS ---
DS: Providers Provider Date of Service: 02/28/23 Date of admission: 02/26/23 11:14 Date of discharge: 02/28/23 Primary care physician: Unknown Physician DS: Diagnosis Discharge Diagnosis (1) Acute respiratory failure: Status: Acute (2) Severe persistent asthma with exacerbation: Status: Acute (3) Diabetes type 2, uncontrolled: Status: Acute DS: Summary Hospital Course Hospital Course: 47-year-old female with known history of asthma presents to the ER today with worsening shortness of breath along with productive cough of green sputum.? She also admits intermittent fever.? She has been seen twice and the last 2 weeks and completed a course of oral steroids and oral antibiotics.? She states her inhalers are not effective at this time.? She will be admitted failing outpatient therapies Admitted to general medical floor and received pulse dose Solu-Medrol along with frequent DuoNebs. Over the course of the next 48 hours he improved to the point that she is medically acceptable to return to home complete prednisone taper along with oral doxycycline. She will follow up with PCP in 2 weeks Time Spent with Patient Time attestation: Total time managing care of this patient today ____ minutes. Discharge coordination time: Greater than 30 minutes Quality: Safe Use of Opioids Does Pt have an Active Cancer Diagnosis on the Problem List?: No Quality: Stroke Does the patient have a stroke diagnosis?: No Physical Exam Vital Signs: Vital Signs: Last Vital Signs Temp 97.9 F 02/28/23 07:58 Pulse 68 02/28/23 07:58 Resp 16 02/28/23 07:58 BP 112/58 L 02/28/23 07:58 Pulse Ox 96 02/28/23 07:58 O2 Del Method Room Air 02/28/23 07:58 O2 Flow Rate 2 02/27/23 20:00 BMI result Body Mass Index 37.0 Const: Other: Awake alert able to speak in full sentences Resp: Other: Diminished throughout with dense expiratory wheezes at bases Cardio: Other: No S4; positive S1-S2; no S3 murmurs rubs or gallops GI: Other: Soft nontender nondistended normoactive bowel sounds Neuro: Other: Cranial nerves 2-12 grossly intact as tested. Motor is 5/5 all extremities. Sensation is intact. Cognition appropriate Extrem: Other: No edema bilaterally DS: Data Data Completed and Pending Labs on day of discharge: Laboratory Results - last 24 hr 02/27/23 02/27/23 02/27/23 11:00 16:29 20:37 WBC RBC Hgb Hct MCV MCH MCHC RDW Plt Count MPV Immature Gran % (Auto) Neut % (Auto) Lymph % (Auto) [place] % (Auto) Eos % (Auto) Baso % (Auto) Lymph # (Auto) [place] # (Auto) Eos # (Auto) Baso # (Auto) Abs Immat Gran (auto) Absolute Neuts (auto) Absolute Nucleated RBC Nucleated RBC % (auto) Sodium Potassium Chloride Carbon Dioxide Anion Gap BUN Creatinine Estim Creat Clear Calc Estimated GFR POC Glucose 288 H 310 H 256 H Fasting Glucose Calcium Total Bilirubin AST ALT Alkaline Phosphatase Total Protein Albumin 02/28/23 02/28/23 02/28/23 05:41 05:41 07:32 WBC 16.4 H RBC 4.72 Hgb 12.6 Hct 38.0 MCV 80.5 MCH 26.7 L MCHC 33.2 RDW 14.2 Plt Count 352 MPV 9.7 Immature Gran % (Auto) 1.3 H Neut % (Auto) 79.4 H Lymph % (Auto) 15.1 L [place] % (Auto) 4.1 Eos % (Auto) 0.0 Baso % (Auto) 0.1 Lymph # (Auto) 2.5 [place] # (Auto) 0.7 Eos # (Auto) 0.0 Baso # (Auto) 0.0 Abs Immat Gran (auto) 0.21 H Absolute Neuts (auto) 13.0 H Absolute Nucleated RBC 0.000 Nucleated RBC % (auto) 0.0 Sodium 141 Potassium 3.9 Chloride 108 Carbon Dioxide 23 Anion Gap 14 BUN 20 H Creatinine 0.62 Estim Creat Clear Calc 133.8 Estimated GFR > 60 POC Glucose 200 H Fasting Glucose 229 H Calcium 8.9 Total Bilirubin 1.0 AST 9 ALT 23 Alkaline Phosphatase 69 Total Protein 6.0 L Albumin 3.6 Preliminary micro results at discharge 02/26/23 08:13 Blood Culture - Preliminary Blood - Venous No growth after 48 hours. 02/26/23 07:58 Blood Culture - Preliminary Blood - Venous No growth after 48 hours. Discharge Plan Discharge Anticipated Discharge Date/Time: 02/28/23 10:57 Patient Disposition: Home, Self-Care Discharge Diagnosis: Asthma exacerbation Referrals: Physician,Unknown J [Primary Care Provider] - 1 Week Discharge Medications: New doxycycline monohydrate 100 mg tablet 100 mg PO BID Qty: 14 0RF prednisone 20 mg tablet See Rx Instructions .Route .COMPLEX Qty: 18 0RF Rx Instructions: 20 mg orally; 3 tabs daily for 3 days, 2 tabs daily for 3 days, 1 tab daily for 3 days Continued Xolair 150 mg recon soln 300 mg subcut Q2W 28 Days Qty: 4 12RF Rx Instructions: requires multiple injection sites; do not exceed 150 mg per injection site ezetimibe 10 mg tablet 10 mg PO DAILY Qty: 90 4RF (DME) nebulizers [AeroEclipse II Nebulizer] Mis See Rx Instructions .ROUTE .MEDSUPPLY Qty: 1 0RF Rx Instructions: As directed (DME) nebulizers [Compact Compressor Nebulizer] Mis See Rx Instructions .ROUTE .MEDSUPPLY Qty: 1 0RF Rx Instructions: As directed amitriptyline 25 mg tablet 1 tab PO BEDTIME metformin 1,000 mg tablet 1 tab PO BIDWM Jardiance 25 mg tablet 1 tab PO DAILY albuterol sulfate 90 mcg/actuation HFA aerosol inhaler 2 puff inhalation Q4-6H PRN (Reason: shortness of breath or wheezing) Qty: 8.5 0RF prednisone 10 mg tablet 10 mg PO TID insulin glargine-yfgn [Semglee(insulin glargine-yfgn)] 100 unit/mL solution 30 unit subcut BEDTIME PRN (Reason: BLOOD SUGAR >250) (DME) blood-glucose meter [FreeStyle Lite Meter] Kit See Rx Instructions .ROUTE .MEDSUPPLY Qty: 1 0RF Rx Instructions: As directed (DME) lancets [FreeStyle Lancets] 28 gauge misc See Rx Instructions .ROUTE .MEDSUPPLY Qty: 200 1RF Rx Instructions: 5x/day telmisartan-hydrochlorothiazid 80-25 mg tablet 1 tab PO DAILY amlodipine 10 mg tablet 10 mg PO DAILY rosuvastatin 40 mg tablet 40 mg PO BEDTIME 90 Days Qty: 90 2RF (DME) Dexcom G6 Clay Burner Misc See Rx Instructions .Route Rx Instructions: As directed (DME) Dexcom G6 Sensor Device See Rx Instructions .Route Rx Instructions: As directed (DME) Dexcom G6 Transmitter Device See Rx Instructions .Route Rx Instructions: As directed (DME) FreeStyle Lite Strips Strip See Rx Instructions .Route Rx Instructions: As directed albuterol sulfate 2.5 mg /3 mL (0.083 %) solution for nebulization 2.5 mg inhalation BID PRN (Reason: Shortness Of Breath Or Wheezing) (DME) Omnipod Dash Pods (Gen 4) Cartridge See Rx Instructions subcut DIRECTED Qty: 5 Rx Instructions: As directed Mounjaro 10 mg/0.5 mL pen injector 10 mg subcut FR cholecalciferol (vitamin D3) 50 mcg (2,000 unit) capsule 50 mcg PO DAILY Qty: 30 5RF Discontinued azithromycin 250 mg tablet 250 mg PO DAILY Rx Instructions: LAST DOSE ON 02/27/23 Discharge Orders: Discharge Order (Routine); Ordered 02/28/23 Ordered By: Spenser Mcclure Diet: Advance to usual diet Activity on Discharge: As tolerated Stand Alone Forms: Patient Portal Discharge page Care Plan Goals: Complete course of doxycycline b.i.d. along with prednisone taper Health Concerns: Continue nebulizers therapies as per outpatient dosing Plan of Treatment: Follow-up with PCP/pulmonary 2 weeks Assessment: See discharge summary
--- NOTE | 2023-02-28 11:33 | MHC.CM.PN ---
pt dc home no skilled servceis ordered by
[2023-02-28 11:37] LABS: Glucose, Whole Blood 275 mg/dL (60-115)
[2023-02-28] MEDS: Milk of Magnesia 30 ML ORAL.SUSP PO (11:57)
[2023-02-28] MEDS: cefTRIAXone sodium 1 GM in 0.9 % Sodium Chloride 50 ML IV (11:57)
[2023-02-28 15:52] VITALS: BP 130/60; PULSE 92; RESP 16; TEMP 36.2; O2SAT 96
[2023-02-28 16:47] LABS: Glucose, Whole Blood 300 mg/dL (60-115)
== END 2023-02-28 17:24 | disposition home or self-care (01) | DRG 141 ==
LOC: HO.ED 09:50 → HO.EDOVER 11:30 → HO.S3 12:08
PROVIDERS: Admitting Provider Hospitalist; Emergency Provider Emergency Medicine; PCP Internal Medicine; Visit Provider Hospitalist
DX: J45.51 Severe persistent asthma with (acute) exacerbation (principal); J96.01 Acute respiratory failure with hypoxia; E11.42 Type 2 diabetes mellitus with diabetic 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; E78.5 Hyperlipidemia, unspecified; I10 Essential (primary) hypertension; Z20.822 Contact with and (suspected) exposure to COVID-19; Z88.8 Allergy status to other drugs, medicaments and biological substances; Z79.4 Long term (current) use of insulin; Z79.84 Long term (current) use of oral hypoglycemic drugs; Z79.899 Other long term (current) drug therapy
CPT/HCPCS: 36415; 71045; 80053; 82947; 83605; 85025; 87040; 87502; 87635; 94640; 99285; J0696; J1650; J2930; J3475

== ENCOUNTER 2023-03-10 07:11 | Outpatient (REF) | payer OTHER, SELFPAY ==
--- NOTE | ~2023-03-10 | XR_ITS ---
EXAMINATION: XR SHOULDER, LEFT CLINICAL INFORMATION: Reason for Exam M25.519 - Pain in unspecified shoulder COMPARISON: None TECHNIQUE: Three views of the shoulder. FINDINGS: No acute fracture or dislocation. Moderate degenerative changes of the shoulder involving the acromioclavicular joint with loss of joint space and degenerative spurring. Soft tissues are unremarkable. XR/XR shoulder LT min 2V IMPRESSION: * Moderate degenerative changes of the shoulder.
== END 2023-03-10 07:12 | disposition home or self-care (01) ==
LOC: HO.HOSX 07:11
PROVIDERS: Visit Provider Physician Assistant
DX: M75.102 Unspecified rotator cuff tear or rupture of left shoulder, not specified as traumatic (principal)
CPT/HCPCS: 73030

== ENCOUNTER 2023-03-11 08:57 | Outpatient (REF) | payer OTHER, SELFPAY | END 2023-03-11 08:58 | disposition home or self-care (01) | LOC: HO.MDS 08:57 | PROVIDERS: Visit Provider Internal Medicine Pulmonary Disease | DX: J45.50 Severe persistent asthma, uncomplicated (principal) | CPT/HCPCS: 96372; J2357 ==

== ENCOUNTER 2023-03-12 08:10 | Outpatient (REF) | payer OTHER, SELFPAY ==
[2023-03-12 10:24] LABS: Vitamin D 25-OH Total 22.7 ng/mL (>30)
== END 2023-03-12 08:11 | disposition home or self-care (01) ==
LOC: HO.LAB 08:10
PROVIDERS: PCP Internal Medicine; Visit Provider Internal Medicine Endocrinology, Diabetes & Metabolism
DX: E11.65 Type 2 diabetes mellitus with hyperglycemia (principal); E11.40 Type 2 diabetes mellitus with diabetic neuropathy, unspecified; E55.9 Vitamin D deficiency, unspecified; Z79.4 Long term (current) use of insulin
CPT/HCPCS: 36415; 82306; 82947; 83036

== ENCOUNTER 2023-03-20 08:30 | Outpatient (REF) | payer OTHER, SELFPAY ==
[2023-03-20 09:44] LABS: Estimated Average Glucose 200 mg/dL; Hemoglobin A1c % 8.6 %
[2023-03-20 09:49] LABS: Alanine Aminotransferase 29 U/L (0-31); Albumin Level 3.7 g/dL (3.5-5.0); Alkaline Phosphatase 76 U/L (39-117); Anion Gap 13 (12-20); Aspartate Amino Transferase 10 U/L (5-31); Blood Urea Nitrogen 9 mg/dL (9-16); Calcium 8.8 mg/dL (8.4-10.2); Carbon Dioxide 23 mmol/L (22-29); Chloride 107 mmol/L (96-108); Cholesterol 245 mg/dL; Estimated Glomerular Filt Rate > 60; Glucose Random 185 mg/dL (60-115); HDL Cholesterol 59 mg/dL; LDL Cholesterol Calculated 162 mg/dl; Sodium 139 mmol/L (135-145); Triglycerides 121 mg/dL
== END 2023-03-20 08:31 | disposition home or self-care (01) ==
LOC: HO.LAB 08:30
PROVIDERS: PCP Internal Medicine; Visit Provider Internal Medicine
DX: E11.65 Type 2 diabetes mellitus with hyperglycemia (principal); E78.00 Pure hypercholesterolemia, unspecified; G44.209 Tension-type headache, unspecified, not intractable; J45.909 Unspecified asthma, uncomplicated
CPT/HCPCS: 36415; 80053; 80061; 83036

== ENCOUNTER 2023-03-24 18:38 | Emergency (ER) | payer OTHER, SELFPAY ==
--- NOTE | ~2023-03-24 | XR_ITS ---
EXAMINATION: XR CHEST CLINICAL INFORMATION: Shortness of breath COMPARISON: Previous chest x-ray February 2023 TECHNIQUE: Frontal view of the chest was obtained. FINDINGS: No significant abnormality is noted involving the heart, lungs, mediastinum, bony thorax or soft tissues. Degenerative changes of the spine. XR/XR chest 1V IMPRESSION: Unremarkable examination.
[2023-03-24 18:45] VITALS: BP 179/101; PULSE 91; RESP 24; TEMP 36.4; O2SAT 93; BMI 35.7
--- NOTE | 2023-03-24 18:45 | ED_ITS ---
HPI - Asthma General Chief Complaint: Dyspnea <ED Alcala - Last Filed: 03/24/23 18:51> Stated Complaint: asthma <ED Alcala - Last Filed: 03/24/23 18:51> Time Seen by Provider: 03/24/23 19:14 <ED Alcala - Last Filed: 03/24/23 18:51> Source: patient, RN notes reviewed and old records reviewed <Jose Barr - Last Filed: 03/24/23 22:19> Mode of arrival: ambulatory <Jose Barr - Last Filed: 03/24/23 22:19> Limitations: no limitations <Jose Barr - Last Filed: 03/24/23 22:19> History of Present Illness HPI Narrative: 47-year-old female past medical history significant for asthma, obesity, diabetes, hyperlipidemia presents for evaluation of shortness of breath. she was admitted on 02/26 to 02/28 with acute respiratory distress related to asthma. The patient reports that her symptoms returned 2 days ago with increasing shor tness of breath and wheezing. She also had white stuff in my mouth and difficulty swallowing. She was treated for thrush with a pill, not anything that I swished in my mouth. she states that her doctor stopped her steroids because she has had multiple rounds and prednisone recently and that was felt to be the cause of her thrush denies any fevers, chills <Jose Barr - Last Filed: 03/24/23 22:19> Related Data Home Medications: Home Medications Medication Instructions Recorded Confirmed amlodipine 10 mg tablet 10 mg PO DAILY 12/12/20 02/26/23 telmisartan 80 1 tab PO DAILY 12/12/20 02/26/23 mg-hydrochlorothiazide 25 mg tablet amitriptyline 25 mg tablet 1 tab PO BEDTIME 07/14/22 02/26/23 metformin 1,000 mg tablet 1 tab PO BIDWM 07/29/22 02/26/23 albuterol sulfate 2.5 mg/3 mL 2.5 mg inhalation BID PRN 08/08/22 02/26/23 (0.083 %) solution for nebulization Shortness Of Breath Or Wheezing blood sugar diagnostic (FreeStyle 08/08/22 Lite Strips) blood-glucose meter,continuous 08/08/22 (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) blood-glucose sensor (Dexcom G6 08/08/22 Sensor device) blood-glucose transmitter (Dexcom 08/08/22 G6 Transmitter device) insulin pump cart,cont inf,BT #5 ea 12/11/22 (Omnipod Dash Pods (Gen 4) subcutaneous cartridge) prednisone 10 mg tablet 10 mg PO TID 02/26/23 02/26/23 Previous Rx's Medication Instructions Recorded nebulizers (AeroEclipse II #1 ea 12/22/20 Nebulizer) nebulizers (Compact Compressor #1 ea 12/31/20 Nebulizer) rosuvastatin 40 mg tablet 40 mg PO BEDTIME 90 days #90 tabs 03/13/21 blood-glucose meter (FreeStyle #1 ea 07/19/21 Lite Meter kit) lancets 28 gauge (FreeStyle #200 ea 07/19/21 Lancets) omalizumab 150 mg subcutaneous 300 mg subcut Q2W 28 days #4 ea 08/12/22 solution (Xolair) cholecalciferol (vitamin D3) 50 50 mcg PO DAILY #30 caps 12/11/22 mcg (2,000 unit) capsule ezetimibe 10 mg tablet 10 mg PO DAILY #90 tabs 01/15/23 albuterol sulfate 90 mcg/actuation 2 puff inhalation Q4-6H PRN 02/20/23 aerosol inhaler shortness of breath or wheezing #8.5 grams doxycycline monohydrate 100 mg 100 mg PO BID #14 tabs 02/28/23 tablet prednisone 20 mg tablet See Rx Instructions .Route 02/28/23 .COMPLEX #18 tabs empagliflozin 25 mg tablet 25 mg PO DAILY #30 tabs 03/12/23 (Jardiance) insulin glargine-yfgn 100 unit/mL 60 unit (0.6 mL) subcut BEDTIME 03/12/23 subcutaneous solution (Semglee PRN BLOOD SUGAR >250 #30 mL (insulin glargine-yfgn)) insulin lispro 100 unit/mL 10 unit (0.1 mL) subcut TID #15 mL 03/12/23 subcutaneous pen (Humalog KwikPen (U-100) Insulin) pen needle, diabetic 32 gauge x #100 ea 03/12/23/16 (Comfort EZ Pen Roundup) tirzepatide 10 mg/0.5 mL 10 mg (0.5 mL) subcut FR #2 mL 03/12/23 subcutaneous pen injector (Gustabo) nystatin 100,000 unit/mL oral 500,000 unit (5 mL) PO Q6H 1 week 03/24/23 suspension #200 mL prednisone 20 mg tablet 40 mg PO DAILY #10 tabs 03/24/23 <ED Alcala - Last Filed: 03/24/23 18:51> Allergies/Adverse Reactions: Allergies Allergy/AdvReac Type Severity Reaction Status Date / Time canagliflozin [Invokana] Allergy Unknown rash Verified 03/12/23 08:16 liraglutide Allergy Unknown rash Verified 03/12/23 08:16 animals Allergy Unknown rash Uncoded 03/12/23 08:16 Pt states no known food Allergy Unknown Unknown Uncoded 03/12/23 08:16 allerg <ED Alcala - Last Filed: 03/24/23 18:51> Review of Systems Constitutional: Constitutional: Denies chills, Denies fatigue, Denies fever(s) and Denies headache(s) <Jose Barr - Last Filed: 03/24/23 22:19> ENT: Denies headache(s) and Reports sore throat <Jose Barr - Last Filed: 03/24/23 22:19> Cardiovascular: Cardiovascular: Denies chest pain, Reports dyspnea and Reports dyspnea on exertion <Jose Barr - Last Filed: 03/24/23 22:19> Respiratory: Respiratory: Reports pain on inspiration, Reports dyspnea and Reports dyspnea on exertion <Jose Barr - Last Filed: 03/24/23 22:19> Gastrointestinal: Gastrointestinal: Denies abdominal pain <Jose Barr - Last Filed: 03/24/23 22:19> Integumentary/Breasts: Skin/Breast: Denies swelling <Jose Barr - Last Filed: 03/24/23 22:19> Neurologic: Denies headache(s) <Jose Barr - Last Filed: 03/24/23 22:19> Endocrine: Endocrine: Denies fatigue <Jose Barr - Last Filed: 03/24/23 22:19> PMFSH Past Medical History Medical History: Medical History Asthma Diabetes Diabetes type 2, uncontrolled Diabetic 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 with type 2 diabetes mellitus Ectopic Eosinophilia Hyperlipidemia Hypertension MCC (current) use of insulin Obesity due to excess calories Vitamin D deficiency <ED Alcala - Last Filed: 03/24/23 18:51> Surgical History: Surgical History History of surgical procedure on mouth Hx of ectopic <ED Alcala - Last Filed: 03/24/23 18:51> Family History Family History: Family History Father Diabetes mellitus Mother Diabetes mellitus Ovarian cancer <ED Alcala - Last Filed: 03/24/23 18:51> Social History Social History: Social History Household Members: Family Housing: House Do you presently have visiting nurse or other home services: No Alcohol intake: never Patient Tobacco Use Status: Never used Tobacco Advance Directives: Yes Advance Directives on File: Yes Advance Directives Date on File: 07/15/22 service: No Current occupational status: employed <ED Alcala - Last Filed: 03/24/23 18:51> Physical Exam Vital Signs: Vital Signs: Last Vital Signs Temp 98.2 F 03/24/23 20:12 Pulse 105 H 03/24/23 22:10 Resp 21 H 03/24/23 22:10 BP 153/80 H 03/24/23 20:12 Pulse Ox 94 03/24/23 22:10 O2 Del Method Room Air 03/24/23 22:10 BMI result Body Mass Index 35.7 <ED Alcala - Last Filed: 03/24/23 18:51> Vital Signs: Last Vital Signs Temp 98.2 F 03/24/23 20:12 Pulse 105 H 03/24/23 22:10 Resp 21 H 03/24/23 22:10 BP 153/80 H 03/24/23 20:12 Pulse Ox 94 03/24/23 22:10 O2 Del Method Room Air 03/24/23 22:10 BMI result Body Mass Index 35.7 <Jose Barr - Last Filed: 03/24/23 22:19> HEENT: Other: patient still has thick, whitish covering for tongue and retropharynx. <Jose Barr - Last Filed: 03/24/23 22:19> Resp: Effort & Inspection: abnormal respiratory effort ( slightly increased respiratory effort), able to speak in complete sentences ( patient is able to speak approximately 10 words before taking a deep breat) and audible wheezes <Jose Barr - Last Filed: 03/24/23 22:19> Auscultation: clear to auscultation bilaterally ( diffuse expiratory wheeze) <Jose Barr - Last Filed: 03/24/23 22:19> Course Course Course Narrative: RME: 47-year-old female with known history of asthma, recent discharge from our facility in 02/28 for respiratory distress presents to the ED today with complaints of cough, chest tightness, worsening shortness of breath, and right- sided rib pain worse with breathing/movement x2 days. Reports recently with thrush, had to cease taking steroids and antibiotics about 1 week ago Satting 92% on RA, increased work of breathing, mild respiratory distress, diminished lung sounds throughout with inspiratory/expiratory wheeze EKG, labs, CXR, COVID/flu ordered Full HPI, ROS and PE to be performed by primary ED provider. <ED Alcala - Last Filed: 03/24/23 18:51> Reevaluation(s) Reevaluation #1: patient re-evaluated, she reports feeling much better after her treatment. She is resting comfortably in no acute distress. Her oxygen saturation is 96% at rest on room air. and she is slightly tachycardic to about 102 which can be expected after albuterol 10 mg. Will admit the patient to see if she drops or sat or has any respiratory distress. <Jose Barr - Last Filed: 03/24/23 22:19> Time: 21:38 <Jose Barr - Last Filed: 03/24/23 22:19> Reevaluation #2: patient ambulated without any evidence of respiratory distress, her oxygen saturation maintained 94% or better and she was not tachypneic. She is for discharge <Jose Barr - Last Filed: 03/24/23 22:19> Time: 22:16 <Jose Barr - Last Filed: 03/24/23 22:19> Medications Administered Discontinued Medications Generic Name Dose Route Start Last Admin Trade Name Freq PRN Reason Stop Dose Admin Albuterol Sulfate 7.5 mg/ 0 mg 03/24/23 19:20 03/24/23 19:45 Albuterol/Ipratropium 3 ml INHALE 03/24/23 19:21 10 each ONCE ONE Administration Magnesium Sulfate/Dextrose 1 gm in 100 mls @ 100 mls/hr 03/24/23 19:20 08/08 20:49 Magnesium Sulfate/D5w IV 03/24/23 20:19 Infused ONCE ONE Infusion Methylprednisolone Sodium Succinate 125 mg 03/24/23 19:45 03/24/23 20:10 Methylprednisolone Sod Succ 40 Mg/Ml Vial IVPUSH 03/24/23 19:46 125 mg ONCE ONE Administration Nystatin 500,000 unit 03/24/23 19:22 03/24/23 20:03 Nystatin Oral Susp 500,000 Unit/5 Ml Oral.Susp PO 03/24/23 19:23 500,000 unit ONCE ONE Administration Protocol <ED Alcala - Last Filed: 03/24/23 18:51> Medications Administered Discontinued Medications Generic Name Dose Route Start Last Admin Trade Name Freq PRN Reason Stop Dose Admin Albuterol Sulfate 7.5 mg/ 0 mg 03/24/23 19:20 03/24/23 19:45 Albuterol/Ipratropium 3 ml INHALE 03/24/23 19:21 10 each ONCE ONE Administration Magnesium Sulfate/Dextrose 1 gm in 100 mls @ 100 mls/hr 03/24/23 19:20 03/24/23 20:49 Magnesium Sulfate/D5w IV 03/24/23 20:19 Infused ONCE ONE Infusion Methylprednisolone Sodium Succinate 125 mg 03/24/23 19:45 03/24/23 20:10 Methylprednisolone Sod Succ 40 Mg/Ml Vial IVPUSH 03/24/23 19:46 125 mg ONCE ONE Administration Nystatin 500,000 unit 03/24/23 19:22 03/24/23 20:03 Nystatin Oral Susp 500,000 Unit/5 Ml Oral.Susp PO 03/24/23 19:23 500,000 unit ONCE ONE Administration Protocol <Jose OrozcoHeatherIssa - Last Filed: 03/24/23 22:19> Medical Decision Making Medical Decision Making MDM Narrative: 47-year-old female presents for evaluation of shortness of breath a long history of asthma. She has wheezing exam we will treat with albuterol DuoNeb, Solu-Medrol, magnesium. The patient stopped her prednisone due to some thrush which is likely the catalyst for her asthma exacerbation. She reports that she was given a pill which was likely fluconazole. We will have her swish and swallow nystatin to treat her thrush. we will see how the patient responds to treatment before determining disposition. <Jose Cortney - Last Filed: 03/24/23 22:19> Differential Diagnosis Acute asthma exacerbation Bronchitis Pneumonia COVID-19 Thrush <Jose Barr - Last Filed: 03/24/23 22:19> Lab Data Result Diagrams: 03/24/23 19:31 <ED Alcala - Last Filed: 03/24/23 18:51> Labs: Lab Results 03/24/23 03/24/23 03/24/23 Range/Units 19:31 19:31 19:31 WBC 10.0 (4.8-10.8) X10*3/uL RBC 5.06 (4.20-5.50) X10*6/uL Hgb 13.6 (12.0-16.0) g/dl Hct 41.3 (37.0-47.0) % MCV 81.6 (80.0-98.0) fL MCH 26.9 L (27.0-33.0) pg MCHC 32.9 (31.0-35.0) g/dl RDW 15.1 (11.0-16.0) % Plt Count 319 (160-400) X10*3/uL MPV 9.7 (9.4-12.3) fL Immature Gran % (Auto) 0.3 (0.0-0.4) % Neut % (Auto) 45.8 (45-73) % Lymph % (Auto) 42.0 H (20-40) % [place] % (Auto) 7.4 (2-11) % Eos % (Auto) 3.9 (0-4) % Baso % (Auto) 0.6 (0-2) % Lymph # (Auto) 4.2 (1.2-4.9) X10*3/uL [place] # (Auto) 0.7 (0.1-1.2) X10*3/uL Eos # (Auto) 0.4 (0.0-0.4) X10*3/uL Baso # (Auto) 0.1 (0.0-0.2) X10*3/uL Abs Immat Gran (auto) 0.03 (0.00-0.03) X10*3/uL Absolute Neuts (auto) 4.6 (2.0-8.3) x10*3/uL Absolute Nucleated RBC 0.000 (0.0-0.012) X10*3/uL Nucleated RBC % (auto) 0.0 (0.0-0.2) /100WBC PT 10.5 (10.0-13.1) SEC INR 0.9 (0.9-1.1) Sodium 139 (135-145) mmol/L Potassium 3.5 (3.3-5.1) mmol/L Chloride 105 (96-108) mmol/L Carbon Dioxide 27 (22-29) mmol/L Anion Gap 11 L (12-20) BUN 7 L (9-16) mg/dL Creatinine 0.61 (0.5-1.4) mg/dL Estim Creat Clear Calc 142.5 Estimated GFR > 60 Random Glucose 213 H (60-115) mg/dL Calcium 9.3 (8.4-10.2) mg/dL Total Bilirubin 1.3 H (0.0-1.0) mg/dL Direct Bilirubin 0.3 (0.0-0.5) mg/dL AST 15 (5-31) U/L ALT 29 (0-31) U/L Alkaline Phosphatase 80 (39-117) U/L Troponin I High Sens (<3.5-17.0) ng/L B-Natriuretic Peptide (<100) pg/mL Total Protein 6.3 L (6.5-8.0) g/dL Albumin 3.8 (3.5-5.0) g/dL COVID-19 (DANK) (Negative) COVID-19 Clin Com Influenza Type A (AL) (Negative) Influenza Type B (AL) (Negative) Influenza A & B Note 03/24/23 03/24/23 03/24/23 Range/Units 19:31 19:31 19:31 WBC (4.8-10.8) X10*3/uL RBC (4.20-5.50) X10*6/uL Hgb (12.0-16.0) g/dl Hct (37.0-47.0) % MCV (80.0-98.0) fL MCH (27.0-33.0) pg MCHC (31.0-35.0) g/dl RDW (11.0-16.0) % Plt Count (160-400) X10*3/uL MPV (9.4-12.3) fL Immature Gran % (Auto) (0.0-0.4) % Neut % (Auto) (45-73) % Lymph % (Auto) (20-40) % [place] % (Auto) (2-11) % Eos % (Auto) (0-4) % Baso % (Auto) (0-2) % Lymph # (Auto) (1.2-4.9) X10*3/uL [place] # (Auto) (0.1-1.2) X10*3/uL Eos # (Auto) (0.0-0.4) X10*3/uL Baso # (Auto) (0.0-0.2) X10*3/uL Abs Immat Gran (auto) (0.00-0.03) X10*3/uL Absolute Neuts (auto) (2.0-8.3) x10*3/uL Absolute Nucleated RBC (0.0-0.012) X10*3/uL Nucleated RBC % (auto) (0.0-0.2) /100WBC PT (10.0-13.1) SEC INR (0.9-1.1) Sodium (135-145) mmol/L Potassium (3.3-5.1) mmol/L Chloride (96-108) mmol/L Carbon Dioxide (22-29) mmol/L Anion Gap (12-20) BUN (9-16) mg/dL Creatinine (0.5-1.4) mg/dL Estim Creat Clear Calc Estimated GFR Random Glucose (60-115) mg/dL Calcium (8.4-10.2) mg/dL Total Bilirubin (0.0-1.0) mg/dL Direct Bilirubin (0.0-0.5) mg/dL AST (5-31) U/L ALT (0-31) U/L Alkaline Phosphatase (39-117) U/L Troponin I High Sens < 2.7 (<3.5-17.0) ng/L B-Natriuretic Peptide 18 (<100) pg/mL Total Protein (6.5-8.0) g/dL Albumin (3.5-5.0) g/dL COVID-19 (DANK) Negative (Negative) COVID-19 Clin Com See Note Influenza Type A (AL) (Negative) Influenza Type B (AL) (Negative) Influenza A & B Note 03/24/23 Range/Units 19:31 WBC (4.8-10.8) X10*3/uL RBC (4.20-5.50) X10*6/uL Hgb (12.0-16.0) g/dl Hct (37.0-47.0) % MCV (80.0-98.0) fL MCH (27.0-33.0) pg MCHC (31.0-35.0) g/dl RDW (11.0-16.0) % Plt Count (160-400) X10*3/uL MPV (9.4-12.3) fL Immature Gran % (Auto) (0.0-0.4) % Neut % (Auto) (45-73) % Lymph % (Auto) (20-40) % [place] % (Auto) (2-11) % Eos % (Auto) (0-4) % Baso % (Auto) (0-2) % Lymph # (Auto) (1.2-4.9) X10*3/uL [place] # (Auto) (0.1-1.2) X10*3/uL Eos # (Auto) (0.0-0.4) X10*3/uL Baso # (Auto) (0.0-0.2) X10*3/uL Abs Immat Gran (auto) (0.00-0.03) X10*3/uL Absolute Neuts (auto) (2.0-8.3) x10*3/uL Absolute Nucleated RBC (0.0-0.012) X10*3/uL Nucleated RBC % (auto) (0.0-0.2) /100WBC PT (10.0-13.1) SEC INR (0.9-1.1) Sodium (135-145) mmol/L Potassium (3.3-5.1) mmol/L Chloride (96-108) mmol/L Carbon Dioxide (22-29) mmol/L Anion Gap (12-20) BUN (9-16) mg/dL Creatinine (0.5-1.4) mg/dL Estim Creat Clear Calc Estimated GFR Random Glucose (60-115) mg/dL Calcium (8.4-10.2) mg/dL Total Bilirubin (0.0-1.0) mg/dL Direct Bilirubin (0.0-0.5) mg/dL AST (5-31) U/L ALT (0-31) U/L Alkaline Phosphatase (39-117) U/L Troponin I High Sens (<3.5-17.0) ng/L B-Natriuretic Peptide (<100) pg/mL Total Protein (6.5-8.0) g/dL Albumin (3.5-5.0) g/dL COVID-19 (DANK) (Negative) COVID-19 Clin Com Influenza Type A (AL) Negative (Negative) Influenza Type B (AL) Negative (Negative) Influenza A & B Note See Note <ED Alcala - Last Filed: 03/24/23 18:51> Lab Results 03/24/23 03/24/23 03/24/23 Range/Units 19:31 19:31 19:31 WBC 10.0 (4.8-10.8) X10*3/uL RBC 5.06 (4.20-5.50) X10*6/uL Hgb 13.6 (12.0-16.0) g/dl Hct 41.3 (37.0-47.0) % MCV 81.6 (80.0-98.0) fL MCH 26.9 L (27.0-33.0) pg MCHC 32.9 (31.0-35.0) g/dl RDW 15.1 (11.0-16.0) % Plt Count 319 (160-400) X10*3/uL MPV 9.7 (9.4-12.3) fL Immature Gran % (Auto) 0.3 (0.0-0.4) % Neut % (Auto) 45.8 (45-73) % Lymph % (Auto) 42.0 H (20-40) % [place] % (Auto) 7.4 (2-11) % Eos % (Auto) 3.9 (0-4) % Baso % (Auto) 0.6 (0-2) % Lymph # (Auto) 4.2 (1.2-4.9) X10*3/uL [place] # (Auto) 0.7 (0.1-1.2) X10*3/uL Eos # (Auto) 0.4 (0.0-0.4) X10*3/uL Baso # (Auto) 0.1 (0.0-0.2) X10*3/uL Abs Immat Gran (auto) 0.03 (0.00-0.03) X10*3/uL Absolute Neuts (auto) 4.6 (2.0-8.3) x10*3/uL Absolute Nucleated RBC 0.000 (0.0-0.012) X10*3/uL Nucleated RBC % (auto) 0.0 (0.0-0.2) /100WBC PT 10.5 (10.0-13.1) SEC INR 0.9 (0.9-1.1) Sodium 139 (135-145) mmol/L Potassium 3.5 (3.3-5.1) mmol/L Chloride 105 (96-108) mmol/L Carbon Dioxide 27 (22-29) mmol/L Anion Gap 11 L (12-20) BUN 7 L (9-16) mg/dL Creatinine 0.61 (0.5-1.4) mg/dL Estim Creat Clear Calc 142.5 Estimated GFR > 60 Random Glucose 213 H (60-115) mg/dL Calcium 9.3 (8.4-10.2) mg/dL Total Bilirubin 1.3 H (0.0-1.0) mg/dL Direct Bilirubin 0.3 (0.0-0.5) mg/dL AST 15 (5-31) U/L ALT 29 (0-31) U/L Alkaline Phosphatase 80 (39-117) U/L Troponin I High Sens (<3.5-17.0) ng/L B-Natriuretic Peptide (<100) pg/mL Total Protein 6.3 L (6.5-8.0) g/dL Albumin 3.8 (3.5-5.0) g/dL COVID-19 (DANK) (Negative) COVID-19 Clin Com Influenza Type A (AL) (Negative) Influenza Type B (AL) (Negative) Influenza A & B Note 03/24/23 03/24/23 03/24/23 Range/Units 19:31 19:31 19:31 WBC (4.8-10.8) X10*3/uL RBC (4.20-5.50) X10*6/uL Hgb (12.0-16.0) g/dl Hct (37.0-47.0) % MCV (80.0-98.0) fL MCH (27.0-33.0) pg MCHC (31.0-35.0) g/dl RDW (11.0-16.0) % Plt Count (160-400) X10*3/uL MPV (9.4-12.3) fL Immature Gran % (Auto) (0.0-0.4) % Neut % (Auto) (45-73) % Lymph % (Auto) (20-40) % [place] % (Auto) (2-11) % Eos % (Auto) (0-4) % Baso % (Auto) (0-2) % Lymph # (Auto) (1.2-4.9) X10*3/uL [place] # (Auto) (0.1-1.2) X10*3/uL Eos # (Auto) (0.0-0.4) X10*3/uL Baso # (Auto) (0.0-0.2) X10*3/uL Abs Immat Gran (auto) (0.00-0.03) X10*3/uL Absolute Neuts (auto) (2.0-8.3) x10*3/uL Absolute Nucleated RBC (0.0-0.012) X10*3/uL Nucleated RBC % (auto) (0.0-0.2) /100WBC PT (10.0-13.1) SEC INR (0.9-1.1) Sodium (135-145) mmol/L Potassium (3.3-5.1) mmol/L Chloride (96-108) mmol/L Carbon Dioxide (22-29) mmol/L Anion Gap (12-20) BUN (9-16) mg/dL Creatinine (0.5-1.4) mg/dL Estim Creat Clear Calc Estimated GFR Random Glucose (60-115) mg/dL Calcium (8.4-10.2) mg/dL Total Bilirubin (0.0-1.0) mg/dL Direct Bilirubin (0.0-0.5) mg/dL AST (5-31) U/L ALT (0-31) U/L Alkaline Phosphatase (39-117) U/L Troponin I High Sens < 2.7 (<3.5-17.0) ng/L B-Natriuretic Peptide 18 (<100) pg/mL Total Protein (6.5-8.0) g/dL Albumin (3.5-5.0) g/dL COVID-19 (DANK) Negative (Negative) COVID-19 Clin Com See Note Influenza Type A (AL) (Negative) Influenza Type B (AL) (Negative) Influenza A & B Note 03/24/23 Range/Units 19:31 WBC (4.8-10.8) X10*3/uL RBC (4.20-5.50) X10*6/uL Hgb (12.0-16.0) g/dl Hct (37.0-47.0) % MCV (80.0-98.0) fL MCH (27.0-33.0) pg MCHC (31.0-35.0) g/dl RDW (11.0-16.0) % Plt Count (160-400) X10*3/uL MPV (9.4-12.3) fL Immature Gran % (Auto) (0.0-0.4) % Neut % (Auto) (45-73) % Lymph % (Auto) (20-40) % [place] % (Auto) (2-11) % Eos % (Auto) (0-4) % Baso % (Auto) (0-2) % Lymph # (Auto) (1.2-4.9) X10*3/uL [place] # (Auto) (0.1-1.2) X10*3/uL Eos # (Auto) (0.0-0.4) X10*3/uL Baso # (Auto) (0.0-0.2) X10*3/uL Abs Immat Gran (auto) (0.00-0.03) X10*3/uL Absolute Neuts (auto) (2.0-8.3) x10*3/uL Absolute Nucleated RBC (0.0-0.012) X10*3/uL Nucleated RBC % (auto) (0.0-0.2) /100WBC PT (10.0-13.1) SEC INR (0.9-1.1) Sodium (135-145) mmol/L Potassium (3.3-5.1) mmol/L Chloride (96-108) mmol/L Carbon Dioxide (22-29) mmol/L Anion Gap (12-20) BUN (9-16) mg/dL Creatinine (0.5-1.4) mg/dL Estim Creat Clear Calc Estimated GFR Random Glucose (60-115) mg/dL Calcium (8.4-10.2) mg/dL Total Bilirubin (0.0-1.0) mg/dL Direct Bilirubin (0.0-0.5) mg/dL AST (5-31) U/L ALT (0-31) U/L Alkaline Phosphatase (39-117) U/L Troponin I High Sens (<3.5-17.0) ng/L B-Natriuretic Peptide (<100) pg/mL Total Protein (6.5-8.0) g/dL Albumin (3.5-5.0) g/dL COVID-19 (DANK) (Negative) COVID-19 Clin Com Influenza Type A (AL) Negative (Negative) Influenza Type B (AL) Negative (Negative) Influenza A & B Note See Note <Jose Barr - Last Filed: 03/24/23 22:19> Independent Interpretation I performed an independent interpretation of an: Plain X-Ray ( No acute infiltrates) <Jose Barr - Last Filed: 03/24/23 22:19> Discharge Plan Discharge Clinical Impression: Asthma <ED Alcala - Last Filed: 03/24/23 18:51> Patient Disposition: Home, Self-Care <ED Alcala - Last Filed: 03/24/23 18:51> Instructions: Asthma (ED), Oral Candidiasis (ED) <ED Alcala - Last Filed: 03/24/23 18:51> Additional Instructions: take the prednisone 40 mg daily for the next 5 days. Take the nystatin cream swish and swallow every 6 hours for the next 7 days to treat the fungal infection in your mouth follow-up with your primary doctor <ED [place] - Last Filed: 03/24/23 18:51> Prescriptions: New nystatin 100,000 unit/mL suspension 500,000 unit PO Q6H 7 Days Qty: 200 0RF Rx Instructions: swish and swallow prednisone 20 mg tablet 40 mg PO DAILY Qty: 10 0RF No Action Xolair 150 mg recon soln 300 mg subcut Q2W 28 Days Qty: 4 12RF Rx Instructions: requires multiple injection sites; do not exceed 150 mg per injection site ezetimibe 10 mg tablet 10 mg PO DAILY Qty: 90 4RF (DME) nebulizers [AeroEclipse II Nebulizer] [facility] [place] See Rx Instructions .ROUTE .MEDSUPPLY Qty: 1 0RF Rx Instructions: As directed (DME) nebulizers [Compact Compressor Nebulizer] [facility] [place] See Rx Instructions .ROUTE .MEDSUPPLY Qty: 1 0RF Rx Instructions: As directed amitriptyline 25 mg tablet 1 tab PO BEDTIME metformin 1,000 mg tablet 1 tab PO BIDWM albuterol sulfate 90 mcg/actuation HFA aerosol inhaler 2 puff inhalation Q4-6H PRN (Reason: shortness of breath or wheezing) Qty: 8.5 0RF prednisone 10 mg tablet 10 mg PO TID doxycycline monohydrate 100 mg tablet 100 mg PO BID Qty: 14 0RF prednisone 20 mg tablet See Rx Instructions .Route .COMPLEX Qty: 18 0RF Rx Instructions: 20 mg orally; 3 tabs daily for 3 days, 2 tabs daily for 3 days, 1 tab daily for 3 days (DME) blood-glucose meter [FreeStyle Lite Meter] Kit See Rx Instructions .ROUTE .MEDSUPPLY Qty: 1 0RF Rx Instructions: As directed (DME) lancets [FreeStyle Lancets] 28 gauge misc See Rx Instructions .ROUTE .MEDSUPPLY Qty: 200 1RF Rx Instructions: 5x/day telmisartan-hydrochlorothiazid 80-25 mg tablet 1 tab PO DAILY amlodipine 10 mg tablet 10 mg PO DAILY rosuvastatin 40 mg tablet 40 mg PO BEDTIME 90 Days Qty: 90 2RF (DME) 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 Misc See Rx Instructions .Route Rx Instructions: As directed (DME) Dexcom G6 Sensor Device See Rx Instructions .Route Rx Instructions: As directed (DME) Dexcom G6 Transmitter Device See Rx Instructions .Route Rx Instructions: As directed (DME) FreeStyle Lite Strips Strip See Rx Instructions .Route Rx Instructions: As directed albuterol sulfate 2.5 mg /3 mL (0.083 %) solution for nebulization 2.5 mg inhalation BID PRN (Reason: Shortness Of Breath Or Wheezing) Jardiance 25 mg tablet 25 mg PO DAILY Qty: 30 5RF insulin glargine-yfgn [Semglee(insulin glargine-yfgn)] 100 unit/mL solution 60 unit subcut BEDTIME PRN (Reason: BLOOD SUGAR >250) Qty: 30 0RF (DME) pen needle, diabetic [Comfort EZ Pen Roundup] 32 gauge x 5/16 needle See Rx Instructions .Route Qty: 100 6RF Rx Instructions: As directed injects 4X/day Mounjaro 10 mg/0.5 mL pen injector 10 mg subcut FR Qty: 2 6RF insulin lispro [Humalog KwikPen Insulin] 100 unit/mL insulin pen 10 unit subcut TID Qty: 15 6RF (DME) Omnipod Dash Pods (Gen 4) Cartridge See Rx Instructions subcut DIRECTED Qty: 5 Rx Instructions: As directed cholecalciferol (vitamin D3) 50 mcg (2,000 unit) capsule 50 mcg PO DAILY Qty: 30 5RF <ED [place] - Last Filed: 03/24/23 18:51>
--- NOTE | 2023-03-24 18:48 | ECG_ITS ---
Test Reason : DYSPNEA Blood Pressure : / mmHG Vent. Rate : 091 BPM Atrial Rate : 091 BPM P-R Int : 126 ms QRS Dur : 094 ms QT Int : 366 ms P-R-T Axes : 058 065 054 degrees QTc Int : 450 ms Normal sinus rhythm Normal ECG When compared with ECG of 19-FEB-2023 16:39, No significant change was found Referred By: Valeria Xie Electronically Signed By:MONA HICKS
[2023-03-24 19:45] VITALS: PULSE 90; RESP 20; O2SAT 95
[2023-03-24 19:57] LABS: INTERNATIONAL NORM RATIO 0.9 (0.9-1.1); Prothrombin Time 10.5 SEC (10.0-13.1)
[2023-03-24] MEDS: Magnesium Sulfate/D5W 1 GM/100 ML PIGGYBACK IV (20:03)
[2023-03-24] MEDS: Nystatin Oral Susp 500,000 UNIT/5 ML ORAL.SUSP 500000 UNIT PO (20:03)
[2023-03-24 20:05] LABS: Alanine Aminotransferase 29 U/L (0-31); Albumin Level 3.8 g/dL (3.5-5.0); Alkaline Phosphatase 80 U/L (39-117); Anion Gap 11 (12-20); Aspartate Amino Transferase 15 U/L (5-31); Bilirubin Direct 0.3 mg/dL (0.0-0.5); Bilirubin Total 1.3 mg/dL (0.0-1.0); Blood Urea Nitrogen 7 mg/dL (9-16); Calcium 9.3 mg/dL (8.4-10.2); Carbon Dioxide 27 mmol/L (22-29); Chloride 105 mmol/L (96-108); Creatinine Clr Calc Pharmacy 142.5; Estimated Glomerular Filt Rate > 60; Glucose Random 213 mg/dL (60-115); IDNOW Serial# 08D9AD1C; Potassium 3.5 mmol/L (3.3-5.1); Sodium 139 mmol/L (135-145); Total Protein 6.3 g/dL (6.5-8.0)
[2023-03-24 20:06] LABS: COVID-19 Test Negative (Negative); IDNOW Serial# BCCEAD1C; Influenza A Negative (Negative); Influenza B2 Negative (Negative); MANUAL DIFF FLAG NO
[2023-03-24] MEDS: methylPREDNISolone Sod Succ 40 MG/ML VIAL 125 MG IVPUSH (20:10)
[2023-03-24 20:11] LABS: B Type Natriuretic Peptide 18 pg/mL (<100)
[2023-03-24 20:12] VITALS: BP 153/80; PULSE 97; RESP 22; TEMP 36.8; O2SAT 95
[2023-03-24 20:12] LABS: Troponin-I High Sensitivity < 2.7 ng/L (<3.5-17.0)
[2023-03-24 20:35] LABS: Basophils Absolute Auto 0.1 X10*3/uL (0.0-0.2); Basophils Percent Auto 0.6 % (0-2); Eosinophils Absolute Auto 0.4 X10*3/uL (0.0-0.4); Eosinophils Percent Auto 3.9 % (0-4); Hematocrit 41.3 % (37.0-47.0); Hemoglobin 13.6 g/dl (12.0-16.0); Imm Gran Abs Auto 0.03 X10*3/uL (0.00-0.03); Imm Gran Pct Auto 0.3 % (0.0-0.4); Lymphocytes Absolute Auto 4.2 X10*3/uL (1.2-4.9); Mean Corpuscular HGB Conc 32.9 g/dl (31.0-35.0); Mean Corpuscular Hemoglobin 26.9 pg (27.0-33.0); Mean Corpuscular Volume 81.6 fL (80.0-98.0); Mean Platelet Volume 9.7 fL (9.4-12.3); Monocytes Absolute Auto 0.7 X10*3/uL (0.1-1.2); Monocytes Percent Auto 7.4 % (2-11); Neutrophils Absolute Auto 4.6 x10*3/uL (2.0-8.3); Neutrophils Percent Auto 45.8 % (45-73); Platelet Count 319 X10*3/uL (160-400); Red Blood Count 5.06 X10*6/uL (4.20-5.50); Red Cell Distribution Width 15.1 % (11.0-16.0)
[2023-03-24 22:10] VITALS: PULSE 105; RESP 21; O2SAT 94
--- NOTE | 2023-03-24 22:10 | PC.NURSE ---
Walking trial pts o2 sat remained between 94%-92% with RR 20. MLP aware.
[2023-03-24 22:18] VITALS: BP 117/59; PULSE 95; RESP 16; TEMP 36.6; O2SAT 94
== END 2023-03-24 22:45 | disposition home or self-care (01) ==
PROVIDERS: Physician Assistant; Emergency Provider Internal Medicine; PCP Internal Medicine
DX: J45.909 Unspecified asthma, uncomplicated (principal); R06.02 Shortness of breath; Z20.822 Contact with and (suspected) exposure to COVID-19; E11.9 Type 2 diabetes mellitus without complications; E78.5 Hyperlipidemia, unspecified; I10 Essential (primary) hypertension; E66.9 Obesity, unspecified; Z68.35 Body mass index [BMI] 35.0-35.9, adult; Z79.4 Long term (current) use of insulin; Z79.899 Other long term (current) drug therapy
CPT/HCPCS: 36415; 71045; 80048; 80076; 83880; 84484; 85025; 85610; 87502; 87635; 93005; 94640; 96365; 96375; 99284; J2920; J3475

== ENCOUNTER 2023-03-30 08:47 | Outpatient (REF) | payer OTHER, SELFPAY | END 2023-03-30 08:48 | disposition home or self-care (01) | LOC: HO.MDS 08:47 | PROVIDERS: Visit Provider Internal Medicine Pulmonary Disease | DX: J45.50 Severe persistent asthma, uncomplicated (principal) | CPT/HCPCS: 96372; J2357 ==

== ENCOUNTER 2023-04-20 09:32 | Outpatient (REF) | payer OTHER, SELFPAY | END 2023-04-20 09:33 | disposition home or self-care (01) | LOC: HO.MDS 09:32 | PROVIDERS: Visit Provider Internal Medicine Gastroenterology | DX: J45.50 Severe persistent asthma, uncomplicated (principal) | CPT/HCPCS: 96372; J2357 ==

== ENCOUNTER 2023-05-12 10:30 | Outpatient (REF) | payer OTHER, SELFPAY | END 2023-05-12 10:31 | disposition home or self-care (01) | LOC: HO.MDS 10:30 | PROVIDERS: Visit Provider Internal Medicine Pulmonary Disease | DX: J45.50 Severe persistent asthma, uncomplicated (principal) | CPT/HCPCS: 96372; J2357 ==

== ENCOUNTER → 2023-05-15 08:40 | Outpatient (BNVA) | payer OTHER, SELFPAY | PROVIDERS: PCP Internal Medicine; Visit Provider Internal Medicine Endocrinology, Diabetes & Metabolism | DX: E11.65 Type 2 diabetes mellitus with hyperglycemia (principal); E11.40 Type 2 diabetes mellitus with diabetic neuropathy, unspecified; E55.9 Vitamin D deficiency, unspecified; Z79.4 Long term (current) use of insulin | CPT/HCPCS: 82947 ==

== ENCOUNTER 2023-05-26 09:35 | Outpatient (AMB) | payer OTHER, SELFPAY ==
--- NOTE | 2023-05-26 09:38 | MHC.OFFVIS ---
Intake Vital Signs 05/26/23 09:42 Height 5 ft 8 in Weight 242 lb 8.136 oz BMI 36.9 BP 126/72 Pulse 78 Pulse Oximetry (%) 97 Intake Visit Reasons: asthma Intake Note: pt has been doing very well on xolair injections, she states she has not been using her inhalers because her breathing has been good. Allergies canagliflozin [Invokana] Allergy (Unknown, Verified 05/26/23 09:41) rash liraglutide Allergy (Unknown, Verified 05/26/23 09:41) rash animals Allergy (Unknown, Uncoded 05/15/23 08:48) rash Pt states no known food allerg Allergy (Unknown, Uncoded 05/15/23 08:48) Unknown HPI asthma HPI Details 47-year-old lady, nonsmoker, followed for underlying moderate to severe persistent asthma significant allergic component.? She has been using Xolair, trilogy, and albuterol MDI with excellent control of his symptoms.? She denies any recent exacerbations. No significant changes since prior. [facility] Medical History Asthma Diabetes Diabetes type 2, uncontrolled Diabetic 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 with type 2 diabetes mellitus Ectopic Eosinophilia Hyperlipidemia Hypertension retirement (current) use of insulin Obesity due to excess calories Vitamin D deficiency Surgical History History of surgical procedure on mouth Hx of ectopic Family History Father Diabetes mellitus Mother Diabetes mellitus Ovarian cancer Social History Household Members: Family Housing: House Do you presently have visiting nurse or other home services: No Alcohol intake: never Patient Tobacco Use Status: Never used Tobacco Advance Directives Date on File: 07/15/22 service: No Current occupational status: employed Review of Systems Const Denies daytime sleepiness, Denies excessive sweating, Denies fatigue, Denies fever(s), Denies lethargy, Denies malaise, Denies night sweats, Denies snoring and Denies weight loss Eyes Denies blurry vision and Denies itchy eyes ENT Denies nasal congestion, Denies post nasal drip, Denies sinus pain, Denies sinus pressure and Denies other ( Thrush) Card Denies chest pain, Denies pedal edema, Denies dyspnea, Denies orthopnea and Denies paroxysmal nocturnal dyspnea Resp Denies cough, Denies hemoptysis, Denies excessive phlegm production, Denies dyspnea, Denies snoring and Denies wheezing GI Denies abdominal pain and Denies heartburn Musc Denies myalgias, Denies arthralgias and Denies joint swelling Skin/Breast Denies rash Neuro Denies memory loss and Denies seizure-like activity Psych Denies abnormal sleep pattern, Denies anxiety and Denies memory loss Endo Denies excessive sweating, Denies fatigue and Denies heat intolerance Jeffrey/Lymph Denies easy bruising Aller/Immun Denies itchy eyes, Denies seasonal rhinorrhea and Denies wheezing Physical Exam Vital Signs: Last Vital Signs Pulse 78 05/26/23 09:42 BP 126/72 05/26/23 09:42 Pulse Ox 97 05/26/23 09:42 BMI result Body Mass Index 36.9 Const General: no acute distress and alert Nutritional Appearance: obese Orientation/consciousness: Other orientation findings ( oriented) HEENT Head: Yes atraumatic Eyes General: appearance normal, both eyes and all related structures Sclerae: sclerae normal EOM: EOMs intact bilaterally Neck Neck: Yes supple Lymphatic: no lymphadenopathy noted Resp Effort & Inspection: normal respiratory effort and no use of accessory muscles Auscultation: clear to auscultation bilaterally Cardio Rate: regular rate Rhythm: regular rhythm Heart sounds: no gallops, no murmurs and no rubs Skin General skin exam: other ( warm) Extrem General: No clubbing, No cyanosis and No edema Assessment & Plan Assessment & Plan (1) Asthma: Code(s): J45.909 - Unspecified asthma, uncomplicated Plan: Well controlled on current regimen of Xolair, nebs, and albuterol MDI. Continue current regimen. Her symptoms tend to worsen in the cold weather, will reassess in October. (2) Environmental allergies: Code(s): Z91.09 - Other allergy status, other than to drugs and biological substances Plan: Well controlled on Xolair. Continue current regimen. Medications: Discontinued insulin glargine-yfgn 30 units (0.3 mL) subcut DAILY 20 mL 5RF Coding Level of Care Code Est Pt Level 4 (24775) Diagnoses Asthma J45.909 Environmental allergies Z91.09
[2023-05-26 09:42] VITALS: BP 126/72; PULSE 78; O2SAT 97; BMI 36.9
== END 2023-05-26 09:55 | disposition home or self-care (01) ==
PROVIDERS: PCP Internal Medicine; Visit Provider Internal Medicine Pulmonary Disease
DX: J45.909 Unspecified asthma, uncomplicated (principal); Z91.09 Other allergy status, other than to drugs and biological substances
CPT/HCPCS: 99214

== ENCOUNTER 2023-06-04 13:14 | Outpatient (REF) | payer OTHER, SELFPAY | END 2023-06-04 13:15 | disposition home or self-care (01) | LOC: HO.MDS 13:14 | PROVIDERS: Visit Provider Internal Medicine Pulmonary Disease | DX: J45.50 Severe persistent asthma, uncomplicated (principal) | CPT/HCPCS: 96372; J2357 ==

== ENCOUNTER → 2023-06-04 13:38 | Outpatient (AMB) | payer OTHER, SELFPAY ==
--- NOTE | 2023-06-04 13:40 | A.OFFVIS_ITS ---
Intake Vital Signs 06/04/23 13:45 Height 5 ft 8 in Weight 238 lb 1.588 oz BMI 36.2 Blood Pressure Location Lt brachial Position Sitting Intake Visit Reasons: Colonoscopy Screening Intake Note: She states that she gets pains sometimes when she eats and her father of stomach cancer a year ago. Allergies canagliflozin [Invokana] Allergy (Unknown, Verified 06/04/23 13:45) rash liraglutide Allergy (Unknown, Verified 06/04/23 13:45) rash animals Allergy (Unknown, Uncoded 06/04/23 13:45) rash Pt states no known food allerg Allergy (Unknown, Uncoded 06/04/23 13:45) Unknown Medication List - Last Reconciled 06/04/23 by Carleen Crum PA-C albuterol sulfate 90 mcg/actuation 2 puffs inhalation Q4-6H PRN albuterol sulfate 2.5 mg inhalation BID PRN amitriptyline 1 tab PO BEDTIME amlodipine 10 mg PO DAILY blood sugar diagnostic (FreeStyle Lite Strips) As directed blood-glucose meter (FreeStyle Lite Meter kit) As directed blood-glucose meter,continuous (Dexcom G6 Tin Cutter) As directed blood-glucose sensor (Dexcom G6 Sensor device) As directed blood-glucose transmitter (Dexcom G6 Transmitter device) As directed cholecalciferol (vitamin D3) 50 mcg PO DAILY empagliflozin (Jardiance) 25 mg PO DAILY ezetimibe 10 mg PO DAILY insulin glargine-yfgn (Semglee (insulin glargine-yfgn)) 60 units (0.6 mL) subcut BEDTIME PRN insulin lispro (Humalog KwikPen (U-100) Insulin) 10 units (0.1 mL) subcut TID lancets (FreeStyle Lancets) 5x/day metformin 1 tab PO BIDWM nebulizers (Compact Compressor Nebulizer) As directed nebulizers (AeroEclipse II Nebulizer) As directed nystatin 500,000 units (5 mL) PO Q6H 1 week omalizumab (Xolair) 300 mg subcut Q2W 28 days pen needle, diabetic (Comfort EZ Pen [place]in) As directed injects 4X/day prednisone 10 mg PO TID rosuvastatin 40 mg PO BEDTIME 90 days telmisartan-hydrochlorothiazid 80-25 mg 1 tab PO DAILY tirzepatide (Mounjaro) mg subcut HPI HPI Comments History of Present Illness Details A 47 y/o DM , asthma, female referred for colonoscopy-she had a colonoscopy reportedly several years ago no record available her father (62) last year stomach cancer.She says she had an EGD a couple years ago ( normal)- no record found 2 pat aunts liver cancer- 50s Began Xolair about 1year ago-asthma much improved- Appetite is good- some days epigastric pain after eating-early satiety- 2019 GES- normal-reportedly normal EGD She does have routine bowel movement however stool is hard She has no nausea, vomiting, fever chills PFSH Medical History Asthma Diabetes Diabetes type 2, uncontrolled Diabetic 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 with type 2 diabetes mellitus Ectopic Eosinophilia 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 Obesity due to excess calories Vitamin D deficiency Surgical History History of esophagogastroduodenoscopy (EGD) History of surgical procedure on mouth Hx of colonoscopy Hx of ectopic Family History Father Diabetes mellitus Stomach cancer Mother Diabetes mellitus Ovarian cancer Paternal Grandfather Colon cancer Paternal Aunt Liver cancer Paternal Aunt Liver cancer Social History Household Members: Family Housing: House Do you presently have visiting nurse or other home services: No Alcohol intake: never Patient Tobacco Use Status: Never used Tobacco Advance Directives Date on File: 07/15/22 service: No Current occupational status: employed Review of Systems Const All systems reviewed & are unremarkable except as noted in HPI and below Card Denies chest pain, Reports dyspnea and Reports dyspnea on exertion Resp Reports dyspnea and Reports dyspnea on exertion GI Reports abdominal pain, Reports bloating, Reports constipation, Reports heartburn, Denies nausea and Denies vomiting Physical Exam Vital Signs: BMI result Body Mass Index 36.2 Const General: cooperative, healthy appearing and comfortable Orientation/consciousness: patient oriented x3 Limitations: no limitations Eyes Sclerae: sclerae normal Resp Effort & Inspection: normal respiratory effort and able to speak in complete sentences Auscultation: clear to auscultation bilaterally, no rales, no rhonchi and no wheezes Cardio Rate: regular rate Rhythm: regular rhythm Heart sounds: S1 normal heart sound present and S2 normal heart sound present GI Palpation (GI): Soft to palpation and nontender Auscultation: normal bowel sounds Skin General skin exam: no rashes or lesions noted Neuro General: patient oriented x3 Extrem General: Yes full ROM Psych Appearance: grossly normal and well kempt Mental Status: mental status grossly normal Speech and movement: Normal speech and movement present and Clear speech present Affect: normal affect Attitude: cooperative Thought process: Normal thought process present Thought content: Normal thought content present Insight: Good insight present (Psych) Judgement: Good judgement present (Psych) Results Reviewed Results Reviewed: GES nrml 2019 Assessment & Plan Assessment & Plan (1) Early satiety: Comment: Normal GS 2019 Code(s): R68.81 - Early satiety Plan: Small portions at a time, (2) Acid reflux: Comment: Declined EGD Reportedly had EGD normal-no record Tums Code(s): K21.9 - Gastro-esophageal reflux disease without esophagitis (3) Chronic constipation: Comment: High-fiber diet Fiber supplement Stool soft Code(s): K59.09 - Other constipation Plan Colonoscopy MiraLax Gatorade split prep, anesthesia consult severe asthma Half dose insulin evening before, omit metformin New diabetes medication morning of procedure Orders: Orders Colonoscopy - GI Use Only Today Z12.11 - Encounter for screening for malignant neoplasm of colon Medications: New bisacodyl (Dulcolax (bisacodyl)) Take 4 tablets by mouth at 12:00pm the day before your procedure. 20 mg (4 x 5 mg) PO ONCE 1 day 4 tabs 0RF colonoscopy prep Z12.11 - Encounter for screening for malignant neoplasm of colon polyethylene glycol 3350 (Miralax) Take as directed by mouth the day before your procedure. 238 grams PO ONCE 1 day 238 grams 0RF docusate sodium (Colace) 200 mg (2 x 100 mg) PO BEDTIME 60 caps 5RF Discontinued insulin glargine-yfgn 30 units (0.3 mL) subcut DAILY 20 mL 5RF Patient Instructions: Screening colonoscopy MiraLax Gatorade split prep-anesthesia, Discussed procedure-indications, medications, Will reviewed acid reflux, precautions-declines EGD Maintain high-fiber diet, fiber supplements stool softeners Encouraged to call questions or concerns Appreciate the opportunity assist in care the patient Coding Level of Care Code New Pt Level 3 (22966) Diagnoses Early satiety R68.81 Acid reflux K21.9 Chronic constipation K59.09 Time Spent (min) 30
[2023-06-04 13:45] VITALS: BMI 36.2
== END ==
PROVIDERS: PCP Internal Medicine; Visit Provider Physician Assistant
DX: R68.81 Early satiety (principal); K21.9 Gastro-esophageal reflux disease without esophagitis; K59.09 Other constipation
CPT/HCPCS: 99203

== ENCOUNTER 2023-06-18 09:08 | Outpatient (REF) | payer OTHER, SELFPAY | END 2023-06-18 09:09 | disposition home or self-care (01) | LOC: HO.MDS 09:08 | PROVIDERS: Visit Provider Internal Medicine Pulmonary Disease | DX: J45.50 Severe persistent asthma, uncomplicated (principal) | CPT/HCPCS: 96372; J2357 ==

== ENCOUNTER 2023-07-07 12:32 | Outpatient (REF) | payer OTHER, SELFPAY | END 2023-07-07 12:33 | disposition home or self-care (01) | LOC: HO.MDS 12:32 | PROVIDERS: Visit Provider Internal Medicine Pulmonary Disease | DX: J45.50 Severe persistent asthma, uncomplicated (principal) | CPT/HCPCS: 96372; J2357 ==

== ENCOUNTER 2023-07-22 07:33 | Outpatient (REF) | payer OTHER, SELFPAY | END 2023-07-22 07:34 | disposition home or self-care (01) | LOC: HO.MDS 07:33 | PROVIDERS: Visit Provider Internal Medicine Pulmonary Disease | DX: J45.50 Severe persistent asthma, uncomplicated (principal) | CPT/HCPCS: 96372; J2357 ==

== ENCOUNTER 2023-07-27 08:09 | Outpatient (REF) | payer OTHER, SELFPAY ==
[2023-07-27 08:47] LABS: Estimated Average Glucose 160 mg/dL; Hemoglobin A1c % 7.2 % (<6.0)
[2023-07-27 09:07] LABS: Alanine Aminotransferase 20 U/L (0-31); Albumin Level 4.1 g/dL (3.5-5.0); Alkaline Phosphatase 86 U/L (39-117); Anion Gap 13 (12-20); Aspartate Amino Transferase 16 U/L (5-31); Blood Urea Nitrogen 6 mg/dL (9-16); Calcium 9.2 mg/dL (8.4-10.2); Carbon Dioxide 24 mmol/L (22-29); Chloride 109 mmol/L (96-108); Cholesterol 142 mg/dL (<200); Estimated Glomerular Filt Rate > 60; Glucose Random 127 mg/dL (60-115); HDL Cholesterol 48 mg/dL (>40); LDL Cholesterol Calculated 77 mg/dL (<100); Potassium 3.5 mmol/L (3.3-5.1); Sodium 142 mmol/L (135-145); Total Protein 7.1 g/dL (6.5-8.0); Triglycerides 88 mg/dL (<150)
== END 2023-07-27 08:10 | disposition home or self-care (01) ==
LOC: HO.LAB 08:09
PROVIDERS: PCP Internal Medicine; Visit Provider Internal Medicine
DX: E11.65 Type 2 diabetes mellitus with hyperglycemia (principal); E78.00 Pure hypercholesterolemia, unspecified; G44.219 Episodic tension-type headache, not intractable; J45.40 Moderate persistent asthma, uncomplicated
CPT/HCPCS: 36415; 80053; 80061; 83036

== ENCOUNTER → 2023-07-28 11:07 | Outpatient (BNVA) | payer SELFPAY | PROVIDERS: PCP Internal Medicine | DX: Z11.1 Encounter for screening for respiratory tuberculosis (principal) ==

== ENCOUNTER 2023-08-05 07:23 | Outpatient (REF) | payer OTHER, SELFPAY | END 2023-08-05 07:24 | disposition home or self-care (01) | LOC: HO.MDS 07:23 | PROVIDERS: Visit Provider Internal Medicine Pulmonary Disease | DX: J45.50 Severe persistent asthma, uncomplicated (principal) | CPT/HCPCS: 96372; J2357 ==

== ENCOUNTER 2023-08-07 09:40 | Outpatient (REF) | payer OTHER, SELFPAY ==
--- NOTE | ~2023-08-07 | MR_ITS ---
EXAMINATION: MRI LEFT SHOULDER WITHOUT CONTRAST CLINICAL INFORMATION: Left shoulder pain COMPARISON: Radiographs 03/10/2023 TECHNIQUE: MRI of the shoulder without contrast is performed on a 1.5 Sophie high-field scanner. FINDINGS: ROTATOR CUFF: Intact. No muscle atrophy or fatty infiltration. BICEPS: Normal. CORACOACROMIAL ARCH: The undersurface of the acromion is flat with no subacromial spur. Mild/moderate acromioclavicular osteoarthritis. LABRUM/CAPSULE: No evidence of a labral tear. GLENOHUMERAL JOINT/MARROW: Trace joint effusion. No focal articular cartilage defect. ADDITIONAL FINDINGS: Minimal soft tissue edema superficial to the distal subscapularis and biceps short head of the coracoid process may represent a mild strain or may be inflammatory. MR/MR shoulder LT wo con IMPRESSION: 1. No rotator cuff tear. Minimal nonspecific soft tissue edema between the distal subscapularis and the origin of the biceps short head at the coracoid process could represent a mild strain or tendinitis. 2. Mild/moderate acromioclavicular osteoarthritis. 3. Trace glenohumeral joint effusion.
== END 2023-08-07 09:41 | disposition home or self-care (01) ==
LOC: HO.MRI 09:40
PROVIDERS: PCP Internal Medicine; Visit Provider Physician Assistant
DX: M75.102 Unspecified rotator cuff tear or rupture of left shoulder, not specified as traumatic (principal)
CPT/HCPCS: 73221

== ENCOUNTER 2023-08-20 08:06 | Outpatient (REF) | payer OTHER, SELFPAY | END 2023-08-20 08:07 | disposition home or self-care (01) | LOC: HO.MDS 08:06 | PROVIDERS: Visit Provider Internal Medicine Pulmonary Disease | DX: J45.50 Severe persistent asthma, uncomplicated (principal) | CPT/HCPCS: 96372; J2357 ==

== ENCOUNTER 2023-08-31 10:06 | Outpatient (REF) | payer OTHER, SELFPAY ==
[2023-08-31 11:08] LABS: Estimated Average Glucose 146 mg/dL; Hemoglobin A1c % 6.7 % (<6.0)
[2023-08-31 12:01] LABS: Alanine Aminotransferase 19 U/L (0-31); Albumin Level 3.8 g/dL (3.5-5.0); Alkaline Phosphatase 79 U/L (39-117); Anion Gap 13 (12-20); Aspartate Amino Transferase 13 U/L (5-31); Bilirubin Total 0.8 mg/dL (0.0-1.0); Blood Urea Nitrogen 6 mg/dL (9-16); Calcium 8.8 mg/dL (8.4-10.2); Carbon Dioxide 24 mmol/L (22-29); Chloride 108 mmol/L (96-108); Estimated Glomerular Filt Rate > 60; Glucose Random 132 mg/dL (60-115); Potassium 3.9 mmol/L (3.3-5.1); Sodium 141 mmol/L (135-145); Total Protein 6.6 g/dL (6.5-8.0)
[2023-08-31 12:07] LABS: Creatinine Urine 140.85 mg/dL
[2023-08-31 12:33] LABS: Vitamin B12 491 pg/mL (200-900)
== END 2023-08-31 10:07 | disposition home or self-care (01) ==
LOC: HO.10HDL 10:06
PROVIDERS: Visit Provider Internal Medicine
DX: Z00.00 Encounter for general adult medical examination without abnormal findings (principal); J45.998 Other asthma; E11.65 Type 2 diabetes mellitus with hyperglycemia; E78.00 Pure hypercholesterolemia, unspecified
CPT/HCPCS: 36415; 80053; 82043; 82570; 82607; 83036

== ENCOUNTER 2023-09-04 08:01 | Outpatient (REF) | payer OTHER, SELFPAY | END 2023-09-04 08:02 | disposition home or self-care (01) | LOC: HO.MDS 08:01 | PROVIDERS: PCP Internal Medicine; Visit Provider Internal Medicine Pulmonary Disease | DX: J45.50 Severe persistent asthma, uncomplicated (principal) | CPT/HCPCS: 96372; J2357 ==

== ENCOUNTER 2023-09-04 12:59 | Outpatient (AMB) | payer OTHER, SELFPAY ==
[2023-09-04 13:00] VITALS: BMI 36.2
--- NOTE | 2023-09-04 13:00 | MHC.OFFVIS ---
Intake Vital Signs 09/04/23 13:00 Height 5 ft 8 in Weight 238 lb BMI 36.2 Intake Visit Reasons: OV- Lt Shoulder MRI review Intake Note: Vonnie is a 47 year old right hand dominant female who presents today for am MRI review of the left shoulder. Allergies canagliflozin [Invokana] Allergy (Unknown, Verified 09/04/23 13:02) rash liraglutide Allergy (Unknown, Verified 09/04/23 13:02) rash animals Allergy (Unknown, Uncoded 09/04/23 13:02) rash Pt states no known food allerg Allergy (Unknown, Uncoded 09/04/23 13:02) Unknown HPI OV- Lt Shoulder MRI review HPI Details 47-year-old female who presents in the office today for a follow up of left shoulder pain and review of her MRI. PFSH Medical History Eosinophilia Obesity due to excess calories Vitamin D deficiency Diabetic 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 with type 2 diabetes mellitus penit[facility]iary (current) use of insulin Diabetes type 2, uncontrolled Ectopic Hyperlipidemia Hypertension Diabetes Asthma Surgical History History of esophagogastroduodenoscopy (EGD) Hx of colonoscopy History of surgical procedure on mouth Hx of ectopic Family History Father Diabetes mellitus Stomach cancer Mother Diabetes mellitus Ovarian cancer Paternal Grandfather Colon cancer Paternal Aunt Liver cancer Paternal Aunt Liver cancer Social History Household Members: Family Housing: House Do you presently have visiting nurse or other home services: No Alcohol intake: never Patient Tobacco Use Status: Never used Tobacco Advance Directives Date on File: 07/15/22 service: No Current occupational status: employed Review of Systems Const All systems reviewed & are unremarkable except as noted in HPI and below Physical Exam Vital Signs: BMI result Body Mass Index 36.2 Const General: cooperative, healthy appearing and no acute distress Orientation/consciousness: patient oriented x3 HEENT Head: Yes normal to inspection, Yes normocephalic and Yes atraumatic Eyes General: appearance normal, both eyes and all related structures Resp Effort & Inspection: normal respiratory effort and able to speak in complete sentences Cardio Rate: regular rate Peripheral pulses: Peripheral pulses 2+ throughout GI Palpation (GI): Soft to palpation Skin Lesions: no lesions Rashes: no rashes Neuro General: patient oriented x3 Extrem Other: Left shoulder: Lacking 20 degrees of forward flexion. Abduction to 90 degrees. Pain at bicep tendon insertion and lateral aspect of the bicep. Pain with reaching away and behind the body. Pain with cross-body reach. Negative drop arm. Negative empty can. NVI. Assessment & Plan Assessment & Plan (1) Painful arc syndrome of left shoulder: Code(s): M75.102 - Unspecified rotator cuff tear or rupture of left shoulder, not specified as traumatic Plan Ms. Sorto is a 47-year-old female who presents in the office today for a follow up of left shoulder pain and review of her MRI. MRI was reviewed with Dr. Berumen prior to the patient?s appointment today. She will follow up with him to see if she is a candidate for a bicep tenotomy. She does pinpoint pain over the anterior aspect of the bicep insertion. She is unable to reach behind her due to pain. Follow up will be with Dr. Berumen at his next available appointment, or sooner if needed. MRI of the left shoulder, obtained on 08/07/2023, revealed: 1. No rotator cuff tear. Minimal nonspecific soft tissue edema between the distal subscapularis and the origin of the biceps short head at the coracoid process could represent a mild strain or tendinitis. 2. Mild/moderate acromioclavicular osteoarthritis. 3. Trace glenohumeral joint effusion. Patient Instructions: Scribed for Taina Ramos PA-C by Debbie Braun claim review medical director, on 09/04/2023 at 1:00 pm, EST. Coding Level of Care Code Est Pt Level 3 (21824) Diagnoses Painful arc syndrome of left shoulder M75.102
== END 2023-09-04 13:20 | disposition home or self-care (01) ==
PROVIDERS: PCP Internal Medicine; Visit Provider Physician Assistant
DX: S46.202A Unspecified injury of muscle, fascia and tendon of other parts of biceps, left arm, initial encounter (principal)
CPT/HCPCS: 99213

== ENCOUNTER 2023-09-15 08:30 | Outpatient (AMB) | payer OTHER, SELFPAY ==
[2023-09-15 08:31] VITALS: BP 134/86; PULSE 98; BMI 34.8
--- NOTE | 2023-09-15 08:31 | MHC.OFFVIS ---
Intake Vital Signs 09/15/23 08:31 Height 5 ft 8 in Weight 228 lb 13.437 oz BMI 34.8 BP 134/86 Blood Pressure Location Lt brachial Position Sitting Pulse 98 Pulse Source Pulse Oximeter Intake Visit Reasons: dm/LVM Intake Note: Patient present today to follow up on Type 2 Diabetes Mellitus. Patient receives DME supplies through: Pharmacy Last Diabetic Eye exam: 07/2023 Last Podiatry Visit: Does not see Mattress Stripper Random Glucose: 216 mg/dl HgA1C: 6.7% 08/31/23 Climate Change Analyst Required: No Accompanied by: Self / Same As Patient Allergies canagliflozin [Invokana] Allergy (Unknown, Verified 09/15/23 08:47) rash liraglutide Allergy (Unknown, Verified 09/15/23 08:47) rash animals Allergy (Unknown, Uncoded 09/04/23 13:02) rash Pt states no known food allerg Allergy (Unknown, Uncoded 09/04/23 13:02) Unknown Medication List - Last Reconciled 09/15/23 by Rory Magaña MD albuterol sulfate 90 mcg/actuation 2 puffs inhalation Q4-6H PRN albuterol sulfate 2.5 mg inhalation BID PRN amitriptyline 1 tab PO BEDTIME amlodipine 10 mg PO DAILY bisacodyl (Dulcolax (bisacodyl)) 20 mg (4 x 5 mg) PO ONCE 1 day blood sugar diagnostic (FreeStyle Lite Strips) As directed blood-glucose meter (FreeStyle Lite Meter kit) As directed blood-glucose sensor (Dexcom G7 Sensor device) As directed change every 10 days blood-glucose transmitter (Dexcom G6 Transmitter device) DIRECTED cholecalciferol (vitamin D3) 50 mcg PO DAILY docusate sodium (Colace) 200 mg (2 x 100 mg) PO BEDTIME empagliflozin (Jardiance) 25 mg PO DAILY ezetimibe 10 mg PO DAILY insulin glargine-yfgn (Semglee (insulin glargine-yfgn)) 60 units (0.6 mL) subcut BEDTIME PRN insulin lispro (Humalog KwikPen (U-100) Insulin) 10 units (0.1 mL) subcut TID lancets (FreeStyle Lancets) 5x/day metformin 1 tab PO BIDWM nebulizers (Compact Compressor Nebulizer) As directed nebulizers (AeroEclipse II Nebulizer) As directed nystatin 500,000 units (5 mL) PO Q6H 1 week omalizumab (Xolair) 300 mg subcut Q2W 28 days pen needle, diabetic (Comfort EZ Pen [place]) As directed injects 4X/day polyethylene glycol 3350 (Miralax) 238 grams PO ONCE 1 day prednisone 10 mg PO TID rosuvastatin 40 mg PO BEDTIME 90 days tirzepatide (Mounjaro) 12.5 mg (0.5 mL) subcut QWEEK HPI HPI Comments History of Present Illness Details Patient is 47-year-old female with DM type 2 diagnosed in 2010 who presents for management of diabetes. . Past medical history: Diabetes type 2 hypertension, hyperlipidemia, obesity. Micro and macrovascular complications: Neuropathy Diabetes medications: p, jardiance 25 mg (intolerant of higher dose), , Mounjaro 12.5 mg Qwkly and now taking metformin 1000 mg BID . Lantus 60 units . : Humalog at ?Humalog 8 units for small meal, 10 units for large meal plus 2 units for blood glucose over 200+ 4 units for blood glucose over 250 and plus 6 units for blood glucose over 300. She has not been taking her insulin I have Lantus or Humalog recently. Not taking insulin Symptoms reported: denies numbness, tingling, cramping in lower extremities Hypoglycemia: denies Hyperglycemia: + urinary frequency, + nocturia, +polydypsia Dexcom download shows she is using the Dexcom 43% of the time. average glucose is 170 with standard deviation 29. 59% range with 40% high in 1% very high and no hypoglycemia. pattern shows elevated blood sugars throughout the day with spike after dinner Basal rate(s) (units/hour) : not using pump . She left the pump in [place]. 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 : Laboratory Tests 05/14/21 05/14/21 06/29/21 Unknown Unknown 16:12 Creatinine 0.79 Estimated GFR > 60 Hemoglobin A1c % 10.4 Triglycerides 94 Cholesterol 154 LDL Cholesterol, C alc 84 HDL Cholesterol 52 Microalb/Creat Rat io 11/26/21 11/26/21 11/26/21 09:46 09:46 09:46 Creatinine 0.61 Estimated GFR > 60 Hemoglobin A1c % 10.4 10.3 Triglycerides Cholesterol LDL Cholesterol, C alc HDL Cholesterol Microalb/Creat Rat io 11/26/21 11:15 Creatinine Estimated GFR Hemoglobin A1c % Triglycerides Cholesterol LDL Cholesterol, C alc HDL Cholesterol Microalb/Creat Rat io 41.8 [facility] Medical History Eosinophilia Obesity due to excess calories Vitamin D deficiency Diabetic 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 with type 2 diabetes mellitus group home (current) use of insulin Diabetes type 2, uncontrolled Ectopic Hyperlipidemia Hypertension Diabetes Asthma Surgical History History of esophagogastroduodenoscopy (EGD) Hx of colonoscopy History of surgical procedure on mouth Hx of ectopic Family History Father Diabetes mellitus Stomach cancer Mother Diabetes mellitus Ovarian cancer Paternal Grandfather Colon cancer Paternal Aunt Liver cancer Paternal Aunt Liver cancer Social History Household Members: Family Housing: House Do you presently have visiting nurse or other home services: No Alcohol intake: never Patient Tobacco Use Status: Never used Tobacco Advance Directives Date on File: 07/15/22 service: No Current occupational status: employed Physical Exam Absence of Cushingoid features. Absence of acromegalic features. Neck exam reveals nl size thyroid about 15 gms. No thyroid nodules palpable. No carotid bruits present. Lungs CTA. Heart S1 S2, Reg R/R. No M/R/ G. Skin exam reveals absence of vitiligo or acanthosis nigricans. Abdominal exam reveals Soft NT/ND with NA BS. No organomegaly present. Neck Other: . Extrem Other: Visual exam of foot performed. No ulcerations or open lesions. No onchomycosis, no callouses.Pulses 2 + distally Sensation intact to monofilament exam. Vibratory sensation sensed is decreased with 128 Hz tuning fork Assessment & Plan Assessment & Plan (1) Diabetes type 2, uncontrolled: Code(s): E11.65 - Type 2 diabetes mellitus with hyperglycemia Qualifiers: Glycemic state: with hyperglycemia Qualified Code(s): E11.65 - Type 2 diabetes mellitus with hyperglycemia Plan: This is a 47-year-old female with a history of type 2 diabetes exacerbated by high-dose steroids being treated with metformin Mounjaro , Jardiance and basal-bolus insulin (previously on insulin pump) with excellent glycemic control while on basal insulin and no known microvascular or macrovascular complication. Plan is to reinitiate the Lantus at 60 units. I upgraded her Dexcom to Dexcom G7. She may need to use Humalog insulin before dinner as well and may reinitiate the prior scale if needed.. (2) Vitamin D deficiency: Code(s): E55.9 - Vitamin D deficiency, unspecified Plan: Will recheck 25 hydroxy vitamin-D in 4 weeks time Medications: New blood-glucose sensor (Dexcom G7 Sensor device) As directed change every 10 days 3 ea 5RF Changed From tirzepatide (Mounjaro) mg subcut To tirzepatide (Mounjaro) 12.5 mg (0.5 mL) subcut QWEEK 2 mL 4RF Refilled insulin glargine-yfgn (Semglee (insulin glargine-yfgn)) 60 units (0.6 mL) subcut BEDTIME PRN 30 mL 1RF BLOOD SUGAR >250 Discontinued blood-glucose sensor (Dexcom G6 Sensor device) Discontinued Reason: Doctor's Order As directed change every 10 days 3 ea 5RF Coding Level of Care Code Est Pt Level 4 (99101) Diagnoses Uncontrolled type 2 diabetes mellitus with hyperglycemia E11.65 Glycemic state: with hyperglycemia Vitamin D deficiency E55.9
[2023-09-15 08:49] LABS: Glucose, Whole Blood 216 mg/dL (60-115)
== END 2023-09-15 09:23 | disposition home or self-care (01) ==
PROVIDERS: PCP Internal Medicine; Visit Provider Internal Medicine Endocrinology, Diabetes & Metabolism
DX: E11.65 Type 2 diabetes mellitus with hyperglycemia (principal); E55.9 Vitamin D deficiency, unspecified
CPT/HCPCS: 99214

== ENCOUNTER → 2023-09-15 08:30 | Outpatient (BNVA) | payer OTHER, SELFPAY | PROVIDERS: PCP Internal Medicine; Visit Provider Internal Medicine Endocrinology, Diabetes & Metabolism | DX: E11.65 Type 2 diabetes mellitus with hyperglycemia (principal); E11.40 Type 2 diabetes mellitus with diabetic neuropathy, unspecified; E55.9 Vitamin D deficiency, unspecified; Z79.4 Long term (current) use of insulin | CPT/HCPCS: 82947 ==

== ENCOUNTER 2023-09-18 09:06 | Outpatient (REF) | payer OTHER, SELFPAY | END 2023-09-18 09:07 | disposition home or self-care (01) | LOC: HO.MDS 09:06 | PROVIDERS: Visit Provider Internal Medicine Pulmonary Disease | DX: J45.50 Severe persistent asthma, uncomplicated (principal) | CPT/HCPCS: 20610; 96372; J0665; J1100; J2357 ==

== ENCOUNTER 2023-09-18 09:26 | Outpatient (AMB) | payer OTHER, SELFPAY ==
[2023-09-18 09:28] VITALS: BMI 34.7
--- NOTE | 2023-09-18 09:28 | A.OFFVIS_ITS ---
Intake Vital Signs 09/18/23 09:28 Height 5 ft 8 in Weight 228 lb BMI 34.7 Intake Visit Reasons: OV - Left Shoulder MRI Review - Discuss Sx Intake Note: Vonnie is a 47 year old right hand dominant female who presents today to discuss surgical intervention of the left shoulder, Biceps Tenotomy. Allergies canagliflozin [Invokana] Allergy (Unknown, Verified 09/15/23 08:47) rash liraglutide Allergy (Unknown, Verified 09/15/23 08:47) rash animals Allergy (Unknown, Uncoded 09/04/23 13:02) rash Pt states no known food allerg Allergy (Unknown, Uncoded 09/04/23 13:02) Unknown HPI OV - Left Shoulder MRI Review - Discuss Sx HPI Details Vonnie is a 47 year old Diabetic woman who presents for an MRI review & to discuss treatment for her left shoulder pain. She has pain primarily with overhead activities, worse at night, along with limited ROM. Her pain radiates from her shoulder down into her biceps. She says she has to get assistance for some tasks, including someone to do her hair or to help her dress. She has done PT, with limited relief, and she has is not interested in steroid injections due to her Diabetes. She says her pain has been present since 2020 after receiving a COVID vaccine in the same arm. [facility] Medical History Eosinophilia Obesity due to excess calories Vitamin D deficiency Diabetic 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 with type 2 diabetes mellitus jail (current) use of insulin Diabetes type 2, uncontrolled Ectopic Hyperlipidemia Hypertension Diabetes Asthma Surgical History History of esophagogastroduodenoscopy (EGD) Hx of colonoscopy History of surgical procedure on mouth Hx of ectopic Family History Father Diabetes mellitus Stomach cancer Mother Diabetes mellitus Ovarian cancer Paternal Grandfather Colon cancer Paternal Aunt Liver cancer Paternal Aunt Liver cancer Social History Household Members: Family Housing: House Do you presently have visiting nurse or other home services: No Alcohol intake: never Patient Tobacco Use Status: Never used Tobacco Advance Directives Date on File: 07/15/22 service: No Current occupational status: employed Review of Systems Const All systems reviewed & are unremarkable except as noted in HPI and below Physical Exam Vital Signs: BMI result Body Mass Index 34.7 Const General: no acute distress, alert and awake Orientation/consciousness: patient oriented x3 HEENT Head: Yes normocephalic and Yes atraumatic Eyes EOM: EOMs intact bilaterally Resp Effort & Inspection: normal respiratory effort and able to speak in complete sentences Cardio Jugular venous distension: no JVD Skin General skin exam: turgor normal Rashes: no rashes Neuro General: patient oriented x3 Extrem Other: Left Shoulder: 0 deg ER Psych Appearance: grossly normal Affect: normal affect Attitude: cooperative Office Procedures Joint Injection/Drain Joint Injection/Drain Details: Injected 1 mL of Decadron and 3 mL 1% lidocaine and 3 mL of 0.25% Marcaine. Site was prepped using aseptic technique. Patient tolerated the procedure well. Primary Site: left shoulder Approach Used: anterolateral Coding 83059 - Large joint Procedure code (CPT) selection complete Results Reviewed Results Reviewed: 09/18/23 09:57 BUPivacaine MPF 0.25 % [Sensorcaine-MPF 0.25% 10 ML] 10 ml .ROUTE .STK-MED ONE Lidocaine HCl 2 % MPF [Xylocaine 2 % MPF] 5 ml .ROUTE .STK-MED ONE dexAMETHasone sod phosphate [Decadron] 4 mg .ROUTE .STK-MED ONE I personally reviewed relevant MR images 1. No rotator cuff tear. Minimal nonspecific soft tissue edema between the distal subscapularis and the origin of the biceps short head at the coracoid process could represent a mild strain or tendinitis. 2. Mild/moderate acromioclavicular osteoarthritis. 3. Trace glenohumeral joint effusion. Assessment & Plan Assessment & Plan (1) Diabetes: Code(s): E11.9 - Type 2 diabetes mellitus without complications Plan: Most recent HgA1c was 6.7% on 08/31/23. (2) Adhesive capsulitis of left shoulder: Code(s): M75.02 - Adhesive capsulitis of left shoulder Plan: This is a 47 year old woman with left adhesive capsulitis. She has pain with daily activity, worse with overhead activity, and at night, along with limited ROM. She found limited relief from PT & NSAIDs in the past, and is hesitant to receive steroid injections due to her Diabetes. I discussed her diagnosis and treatment options. I recommend more PT & NSAIDs. I injected her left shoulder today, which she tolerated well, ordered PT and prescribed Meloxicam. I encouraged her to use her should as much as possible. She can follow up prn. Plan Scribed for Juan Berumen MD by Rafael Anthony, biomedical engineering professor, on 09/18/23 at 10:00 AM, EST. Medications: New meloxicam 15 mg PO DAILY 30 tabs 2RF Coding Level of Care Code Est Pt Level 3 (09191) Diagnoses Diabetes E11.9 Adhesive capsulitis of left shoulder M75.02 CPT Codes Coding - 60198 Large joint: 34099 - Large joint ([id number])
== END 2023-09-18 10:15 | disposition home or self-care (01) ==
PROVIDERS: PCP Internal Medicine; Visit Provider Orthopaedic Surgery
DX: M75.02 Adhesive capsulitis of left shoulder (principal); E11.9 Type 2 diabetes mellitus without complications
CPT/HCPCS: 20610; 99214

== ENCOUNTER 2023-10-02 08:48 | Outpatient (REF) | payer OTHER, SELFPAY | END 2023-10-02 08:49 | disposition home or self-care (01) | LOC: HO.MDS 08:48 | PROVIDERS: Visit Provider Internal Medicine Pulmonary Disease | DX: J45.50 Severe persistent asthma, uncomplicated (principal) | CPT/HCPCS: 96372; J2357 ==

== ENCOUNTER 2023-10-04 18:42 | Emergency (ER) | payer OTHER, SELFPAY ==
--- NOTE | 2023-10-04 | ECG_ITS ---
Test Reason : CHEST PAIN/SOB Blood Pressure : / mmHG Vent. Rate : 119 BPM Atrial Rate : 119 BPM P-R Int : 128 ms QRS Dur : 096 ms QT Int : 326 ms P-R-T Axes : 058 040 013 degrees QTc Int : 458 ms Sinus tachycardia RSR' or QR pattern in V1 suggests right ventricular conduction delay Abnormal ECG Heart rate has increased Referred By: Generic ED Physician Electronically Signed By:MARIO ISSA MD
--- NOTE | ~2023-10-04 | XR_ITS ---
EXAMINATION: CHEST 2 VIEWS CLINICAL INFORMATION: cough and SOB. COMPARISON: 03/24/2023. TECHNIQUE: PA and lateral views of the chest obtained. FINDINGS: The lungs are well expanded. No focal infiltrate, effusion, edema, or pneumothorax. Cardiac and mediastinal silhouettes are within normal limits for technique. No acute bony abnormality seen with mild degenerative changes in the spine XR/XR chest 2V IMPRESSION: No evidence of acute disease
[2023-10-04 19:13] VITALS: BP 156/101; PULSE 114; RESP 22; TEMP 37.1; O2SAT 95; BMI 35.8
--- NOTE | 2023-10-04 19:18 | ED_ITS ---
HPI - General Adult General Chief complaint: Dyspnea Stated complaint: Asthma 2 wks Time Seen by Provider: 10/04/23 19:16 Source: patient Mode of arrival: ambulatory History of Present Illness HPI narrative: 47-year-old female with presentation for 2-3 weeks of asthma, significant coughing and has difficulty using the rescue inhaler because it causes her to be nauseous but instead uses the nebulizer home. She has not been getting any relief and states that there are other sick contacts at home and states that that coughing and breathing cause and chest pain and that patient is also reporting difficulty with urination Related Data Home Medications Medication Instructions Recorded Confirmed amlodipine 10 mg tablet 10 mg PO DAILY 12/12/20 06/04/23 amitriptyline 25 mg tablet 1 tab PO BEDTIME 07/14/22 06/04/23 metformin 1,000 mg tablet 1 tab PO BIDWM 07/29/22 06/04/23 albuterol sulfate 2.5 mg/3 mL 2.5 mg inhalation BID PRN 08/08/22 06/04/23 (0.083 %) solution for nebulization Shortness Of Breath Or Wheezing blood sugar diagnostic (FreeStyle 08/08/22 06/04/23 Lite Strips) prednisone 10 mg tablet 10 mg PO TID 02/26/23 06/04/23 Previous Rx's Medication Instructions Recorded nebulizers (AeroEclipse II #1 ea 12/22/20 Nebulizer) nebulizers (Compact Compressor #1 ea 12/31/20 Nebulizer) rosuvastatin 40 mg tablet 40 mg PO BEDTIME 90 days #90 tabs 03/13/21 blood-glucose meter (FreeStyle #1 ea 07/19/21 Lite Meter kit) lancets 28 gauge (FreeStyle #200 ea 07/19/21 Lancets) omalizumab 150 mg subcutaneous 300 mg subcut Q2W 28 days #4 ea 08/12/22 solution (Xolair) ezetimibe 10 mg tablet 10 mg PO DAILY #90 tabs 01/15/23 albuterol sulfate 90 mcg/actuation 2 puff inhalation Q4-6H PRN 02/20/23 aerosol inhaler shortness of breath or wheezing #8.5 grams empagliflozin 25 mg tablet 25 mg PO DAILY #30 tabs 03/12/23 (Jardiance) insulin lispro 100 unit/mL 10 unit (0.1 mL) subcut TID #15 mL 03/12/23 subcutaneous pen (Humalog KwikPen (U-100) Insulin) pen needle, diabetic 32 gauge x #100 ea 03/12/23 5/16 (Comfort EZ Pen Jackson) nystatin 100,000 unit/mL oral 500,000 unit (5 mL) PO Q6H 1 week 03/24/23 suspension #200 mL bisacodyl 5 mg tablet,delayed 20 mg (4 x 5 mg) PO ONCE 06/04/23 release (Dulcolax (bisacodyl)) colonoscopy prep 1 day #4 tabs docusate sodium 100 mg capsule 200 mg (2 x 100 mg) PO BEDTIME #60 06/04/23 (Colace) caps polyethylene glycol 3350 17 238 g PO ONCE 1 day #238 grams 06/04/23 gram/dose oral powder (Miralax) cholecalciferol (vitamin D3) 50 50 mcg PO DAILY #90 caps 07/08/23 mcg (2,000 unit) capsule blood-glucose transmitter (Dexcom #1 ea 08/12/23 G6 Transmitter device) blood-glucose sensor (Dexcom G7 #3 ea 09/15/23 Sensor device) insulin glargine-yfgn 100 unit/mL 60 unit (0.6 mL) subcut BEDTIME 09/15/23 subcutaneous solution (Semglee PRN BLOOD SUGAR >250 #30 mL (insulin glargine-yfgn)) tirzepatide 12.5 mg/0.5 mL 12.5 mg (0.5 mL) subcut QWEEK #2 mL 09/15/23 subcutaneous pen injector (Gustabo) meloxicam 15 mg tablet 15 mg PO DAILY #30 tabs 09/18/23 amoxicillin 875 mg-potassium 1 tab PO BID 7 days #14 tabs 10/04/23 clavulanate 125 mg tablet benzonatate 200 mg capsule 200 mg PO TID PRN cough #10 caps 10/04/23 Allergies Allergy/AdvReac Type Severity Reaction Status Date / Time canagliflozin [Invokana] Allergy Unknown rash Verified 09/15/23 08:47 liraglutide Allergy Unknown rash Verified 09/15/23 08:47 animals Allergy Unknown rash Uncoded 09/04/23 13:02 Pt states no known food Allergy Unknown Unknown Uncoded 09/04/23 13:02 allerg Review of Systems 2 Review of Systems: Pertinent positives and negatives as stated in [facility] Past Medical History Source: nursing notes reviewed Medical History Eosinophilia Obesity due to excess calories Vitamin D deficiency 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 Diabetes type 2, uncontrolled Ectopic Hyperlipidemia Hypertension Diabetes Asthma Surgical History History of esophagogastroduodenoscopy (EGD) Hx of colonoscopy History of surgical procedure on mouth Hx of ectopic Family History Family History Father Diabetes mellitus Stomach cancer Mother Diabetes mellitus Ovarian cancer Paternal Grandfather Colon cancer Paternal Aunt Liver cancer Paternal Aunt Liver cancer Social History Social History Household Members: Family Housing: House Do you presently have visiting nurse or other home services: No Alcohol intake: never Patient Tobacco Use Status: Never used Tobacco Smoked in Last 30 Days: No Use of substances other than those prescribed or required for medical reasons: No Advance Directives: Yes Advance Directives on File: Yes Advance Directives Date on File: 07/15/22 Patient : No service: No Current occupational status: employed Physical Exam ED Vital Signs: Vital Signs - 24 hr 10/04/23 19:13 10/04/23 19:53 10/04/23 20:34 Temperature 98.8 F 99.0 F Pulse Rate 114 H 114 H 126 H Respiratory Rate 22 H 22 H 32 H Blood Pressure 156/101 H 138/76 Pulse Oximetry 95 94 Oxygen Delivery Method Room Air Room Air 10/04/23 22:25 10/04/23 23:36 Temperature 98.3 F 98.4 F Pulse Rate 123 H 116 H Respiratory Rate 18 17 Blood Pressure 110/62 130/81 Pulse Oximetry 95 94 Oxygen Delivery Method Room Air Room Air BMI result Body Mass Index 35.8 VITAL SIGNS: Reviewed. GENERAL: Well developed, well nourished, in no acute distress. HEAD: Normocephalic/atraumatic EYES: PERRLA, EOMI EARS: Ext canals without abnormality, TMs non-bulging and non-erythematous NOSE: Nares patent bilateral OROPHARYNX: no oral lesions noted, posterior pharynx clear and non-erythematous without noted tonsillar enlargement/erythema/exudates NECK: Supple, no adenopathy LUNGS: Normal breath sounds. No adventitious sounds or accessory muscle use. SpO2<95> CARDIOVASCULAR: Regular rate and rhythm without noted murmurs ABDOMEN: Soft, non-tender, non-distended with bowel sounds. MUSCULOSKELETAL: No tenderness, deformities, or effusions noted on gross inspection. EXTREMITIES: No cyanosis, clubbing or edema. SKIN: Inspection of the skin reveals no rashes NEUROLOGIC: Alert and oriented x 4. Strength and sensation to light touch were grossly intact x 4. Course Course Course Narrative: RME: 47 alberto escalera presents to the ED For Asthma exacerbation and SOB with cough for the past 3 weeks. Patient states being intubated before in the past for asthma. EKG and labs ordered. Medications Administered Discontinued Medications Generic Name Dose Route Start Last Admin Trade Name Johnnyq PRN Reason Stop Dose Admin Acetaminophen 975 mg 10/04/23 21:01 10/04/23 21:07 Acetaminophen 325 Mg Tablet PO 10/04/23 21:02 975 mg ONCE ONE Administration Albuterol Sulfate 2.5 mg/ 5 mg 10/04/23 19:50 10/04/23 19:52 Albuterol Sulfate 2.5 mg INHALE 10/04/23 19:51 5 mg ONCE ONE Administration Benzonatate 200 mg 10/04/23 22:51 10/04/23 23:00 Benzonatate 100 Mg Capsule PO 10/04/23 22:52 200 mg ONCE ONE Administration Medical Decision Making Medical Decision Making [facility] Narrative: 47-year-old female with history and clinical presentation, DDX: Pneumonia, asthma exacerbation, doubt ACS, possible UTI, persistent cough. I reviewed all investigations and patient is noted to have a leukocytosis with left shift but no anemia or thrombocytopenia. Coagulation studies are without acute findings. Chemistry and sees are grossly within normal limits and there is no demonstrated DMITRIY or electrolyte/transaminases derangements. T bili is elevated 1.3 and is of unclear significance as patient had no complaints of epigastric/right upper quadrant pain. High sensitivity troponin is undetectable and there are no acute changes on EKG. Urinalysis is negative for UTI or hematuria. Viral testing is negative for influenza/RSV/COVID. Chest x-ray does not identify any acute infiltrate otherwise my interpretation is in agreement with radiology's impression. My interpretation is that patient might be experiencing a pneumonia based on symptoms/history/elevated temperature despite the fact that chest x-ray has not identified an infiltrate. Due to patient's history of asthma will treat as a community-acquired pneumonia. Differential Diagnosis Differential Diagnoses: The differential diagnosis associated with the presentation includes Please see the discussion above Admission/Observation Consideration of admission/observation: Escalation of care including admission/observation considered Please see the discussion above Lab Data MDM Lab Attestation statement: I reviewed the patient's lab results. Please see the discussion above 10/04/23 19:43 10/04/23 19:43 Labs: Lab Results 10/04/23 10/04/23 10/04/23 Range/Units 19:38 19:43 22:24 WBC 14.8 H (4.8-10.8) X10*3/uL RBC 5.20 (4.20-5.50) X10*6/uL Hgb 14.4 (12.0-16.0) g/dl Hct 43.0 (37.0-47.0) % MCV 82.7 (80.0-98.0) fL MCH 27.7 (27.0-33.0) pg MCHC 33.5 (31.0-35.0) g/dl RDW 13.8 (11.0-16.0) % Plt Count 325 (160-400) X10*3/uL MPV 9.3 L (9.4-12.3) fL Immature Gran % (Auto) 0.3 (0.0-0.4) % Neut % (Auto) 76.4 H (45-73) % Lymph % (Auto) 15.9 L (20-40) % Talbot % (Auto) 5.7 (2-11) % Eos % (Auto) 1.4 (0-4) % Baso % (Auto) 0.3 (0-2) % Lymph # (Auto) 2.4 (1.2-4.9) X10*3/uL [place] # (Auto) 0.8 (0.1-1.2) X10*3/uL Eos # (Auto) 0.2 (0.0-0.4) X10*3/uL Baso # (Auto) 0.0 (0.0-0.2) X10*3/uL Abs Immat Gran (auto) 0.05 H (0.00-0.03) X10*3/uL Absolute Neuts (auto) 11.3 H (2.0-8.3) x10*3/uL Absolute Nucleated RBC 0.000 (0.0-0.012) X10*3/uL Nucleated RBC % (auto) 0.0 (0.0-0.2) /100WBC PT 11.0 L (11.1-13.3) SEC INR 0.9 (0.9-1.1) APTT 29.1 (26.0-36.4) SEC Sodium 138 (135-145) mmol/L Potassium 3.6 (3.3-5.1) mmol/L Chloride 103 (96-108) mmol/L Carbon Dioxide 25 (22-29) mmol/L Anion Gap 14 (12-20) BUN 5 L (9-16) mg/dL Creatinine 0.58 (0.5-1.4) mg/dL Estim Creat Clear Calc 145.2 Estimated GFR > 60 Random Glucose 115 (60-115) mg/dL Calcium 9.2 (8.4-10.2) mg/dL Total Bilirubin 1.3 H (0.0-1.0) mg/dL AST 14 (5-31) U/L ALT 20 (0-31) U/L Alkaline Phosphatase 80 (39-117) U/L Troponin I High Sens < 2.7 (<3.5-17.0) ng/L B-Natriuretic Peptide 26 (<100) pg/mL Total Protein 7.4 (6.5-8.0) g/dL Albumin 4.2 (3.5-5.0) g/dL Urine Color Yellow Urine Appearance Clear Urine pH 8.0 (5.0-9.0) Ur Specific [place] >= 1.030 H (1.005-1.025) Urine Protein Negative (Neg-Trace) mg/dL Urine Glucose (UA) 500 H (Negative) mg/dL Urine Ketones Negative (Negative) mg/dL Urine Blood Negative (Negative) Urine Nitrite Negative (Negative) Ur Leukocyte Esterase Negative (Negative) Influenza Type A (PCR) NEGATIVE (Negative) Influenza Type B (PCR) NEGATIVE (Negative) RSV RNA Qual (PCR) NEGATIVE (Negative) SARS-CoV-2 RNA (RT-PCR) NEGATIVE (Negative) Independent Interpretation I performed an independent interpretation of an: EKG Interpretation: Sinus tachycardia, HR-119, no STEMI, MT/QRS/QTC is within normal limits. Radiology Impression Discussion of test interpretation with radiology: I have reviewed the radiologist's reading. Radiologist Impression: Please see the discussion above External Record Review External record reviewed: Outpatient record, Prior outpatient labs and Prior outpatient radiology Chronic Conditions Patient?s care impacted by: Diabetes, Hypertension and Other Asthma Critical Care Time Critical Care Time Critical Care Time: Yes Total Critical Care Time: 30 Attestation: I personally attest to this time spent taking care of the patient. Discharge Plan Discharge Clinical Impression: Pneumonia, Asthma, Cough Patient Disposition: Home, Self-Care Instructions: Asthma (ED), Pneumonia (ED) Additional Instructions: 1. Resume all home medications as prescribed. 2. Complete the entire course of antibiotics as prescribed, you also have received a prescription for cough medication. 3. Tylenol 1000 mg, orally, every 6 hours as needed for body aches and temperatures greater than 100.4. Return to the ER for any worsening symptoms. Prescriptions: New amoxicillin-pot clavulanate 875-125 mg tablet 1 tab PO BID 7 Days Qty: 14 0RF benzonatate 200 mg capsule 200 mg PO TID PRN (Reason: cough) Qty: 10 0RF No Action Xolair 150 mg recon soln 300 mg subcut Q2W 28 Days Qty: 4 12RF Rx Instructions: requires multiple injection sites; do not exceed 150 mg per injection site ezetimibe 10 mg tablet 10 mg PO DAILY Qty: 90 4RF cholecalciferol (vitamin D3) 50 mcg (2,000 unit) capsule 50 mcg PO DAILY Qty: 90 1RF (DME) Dexcom G6 Transmitter Device See Rx Instructions .ROUTE .COMPLEX Qty: 1 0RF Dose Instruction: DIRECTED Rx Instructions: DIRECTED (DME) nebulizers [AeroEclipse II Nebulizer] [facility] See Rx Instructions .ROUTE .MEDSUPPLY Qty: 1 0RF Rx Instructions: As directed (DME) nebulizers [Compact Compressor Nebulizer] Misc See Rx Instructions .ROUTE .MEDSUPPLY Qty: 1 0RF Rx Instructions: As directed amitriptyline 25 mg tablet 1 tab PO BEDTIME metformin 1,000 mg tablet 1 tab PO BIDWM albuterol sulfate 90 mcg/actuation HFA aerosol inhaler 2 puff inhalation Q4-6H PRN (Reason: shortness of breath or wheezing) Qty: 8.5 0RF prednisone 10 mg tablet 10 mg PO TID nystatin 100,000 unit/mL suspension 500,000 unit PO Q6H 7 Days Qty: 200 0RF Rx Instructions: swish and swallow (DME) blood-glucose meter [FreeStyle Lite Meter] Kit See Rx Instructions .ROUTE .MEDSUPPLY Qty: 1 0RF Rx Instructions: As directed (DME) lancets [FreeStyle Lancets] 28 gauge amg [facility] See Rx Instructions .ROUTE .MEDSUPPLY Qty: 200 1RF Rx Instructions: 5x/day amlodipine 10 mg tablet 10 mg PO DAILY rosuvastatin 40 mg tablet 40 mg PO BEDTIME 90 Days Qty: 90 2RF (DME) FreeStyle Lite Strips Strip See Rx Instructions .Route Rx Instructions: As directed albuterol sulfate 2.5 mg /3 mL (0.083 %) solution for nebulization 2.5 mg inhalation BID PRN (Reason: Shortness Of Breath Or Wheezing) Jardiance 25 mg tablet 25 mg PO DAILY Qty: 30 5RF (DME) pen needle, diabetic [Comfort EZ Pen Jackson] 32 gauge x 5/16 needle See Rx Instructions .Route Qty: 100 6RF Rx Instructions: As directed injects 4X/day insulin lispro [Humalog KwikPen Insulin] 100 unit/mL insulin pen 10 unit subcut TID Qty: 15 6RF bisacodyl [Dulcolax (bisacodyl)] 5 mg tablet,delayed release (DR/EC) 20 mg PO ONCE 1 Days Qty: 4 0RF Rx Instructions: Take 4 tablets by mouth at 12:00pm the day before your procedure. polyethylene glycol 3350 [Miralax] 17 gram/dose powder 238 g PO ONCE 1 Days Qty: 238 0RF Rx Instructions: Take as directed by mouth the day before your procedure. docusate sodium [Colace] 100 mg capsule 200 mg PO BEDTIME Qty: 60 5RF (DME) Dexcom G7 Sensor Device See Rx Instructions .Route Qty: 3 5RF Rx Instructions: As directed change every 10 days insulin glargine-yfgn [Semglee(insulin glargine-yfgn)] 100 unit/mL solution 60 unit subcut BEDTIME PRN (Reason: BLOOD SUGAR >250) Qty: 30 1RF Mounjaro 12.5 mg/0.5 mL pen injector 12.5 mg subcut QWEEK Qty: 2 4RF meloxicam 15 mg tablet 15 mg PO DAILY Qty: 30 2RF Referrals: Shandra Diaz MD [Primary Care Provider] - Interventions: ED Discharge Assessment Last Done: 10/04/23 23:47 Discharge Date/Time: 10/04/23 23:48
[2023-10-04 19:48] LABS: MANUAL DIFF FLAG NO
[2023-10-04] MEDS: Albuterol Sulfate 2.5 MG, Albuterol Sulfate (0.083%) 2.5 MG 5 MG INHALE (19:52)
[2023-10-04 19:53] VITALS: PULSE 114; RESP 22; O2SAT 95
[2023-10-04 19:56] LABS: Basophils Percent Auto 0.3 % (0-2); Eosinophils Absolute Auto 0.2 X10*3/uL (0.0-0.4); Eosinophils Percent Auto 1.4 % (0-4); Hemoglobin 14.4 g/dl (12.0-16.0); INTERNATIONAL NORM RATIO 0.9 (0.9-1.1); Imm Gran Abs Auto 0.05 X10*3/uL (0.00-0.03); Imm Gran Pct Auto 0.3 % (0.0-0.4); Lymphocytes Absolute Auto 2.4 X10*3/uL (1.2-4.9); Lymphocytes Percent Auto 15.9 % (20-40); Mean Corpuscular HGB Conc 33.5 g/dl (31.0-35.0); Mean Corpuscular Hemoglobin 27.7 pg (27.0-33.0); Mean Corpuscular Volume 82.7 fL (80.0-98.0); Mean Platelet Volume 9.3 fL (9.4-12.3); Monocytes Absolute Auto 0.8 X10*3/uL (0.1-1.2); Monocytes Percent Auto 5.7 % (2-11); Neutrophils Absolute Auto 11.3 x10*3/uL (2.0-8.3); Neutrophils Percent Auto 76.4 % (45-73); Platelet Count 325 X10*3/uL (160-400); Red Cell Distribution Width 13.8 % (11.0-16.0); White Blood Count 14.8 X10*3/uL (4.8-10.8)
[2023-10-04 19:58] LABS: Partial Thromboplastin Time 29.1 SEC (26.0-36.4)
--- NOTE | 2023-10-04 20:00 | PC.NURSE ---
Respiratory at bedside
[2023-10-04 20:10] LABS: Alanine Aminotransferase 20 U/L (0-31); Albumin Level 4.2 g/dL (3.5-5.0); Alkaline Phosphatase 80 U/L (39-117); Anion Gap 14 (12-20); Aspartate Amino Transferase 14 U/L (5-31); Bilirubin Total 1.3 mg/dL (0.0-1.0); Blood Urea Nitrogen 5 mg/dL (9-16); Calcium 9.2 mg/dL (8.4-10.2); Carbon Dioxide 25 mmol/L (22-29); Chloride 103 mmol/L (96-108); Creatinine Clr Calc Pharmacy 145.2; Estimated Glomerular Filt Rate > 60; Glucose Random 115 mg/dL (60-115); Potassium 3.6 mmol/L (3.3-5.1); Sodium 138 mmol/L (135-145); Total Protein 7.4 g/dL (6.5-8.0)
[2023-10-04 20:13] LABS: B Type Natriuretic Peptide 26 pg/mL (<100)
[2023-10-04 20:18] LABS: Troponin-I High Sensitivity < 2.7 ng/L (<3.5-17.0)
[2023-10-04 20:26] LABS: Influenza A PCR NEGATIVE (Negative); Influenza B PCR NEGATIVE (Negative); Resp Syncy Virus RNA Qual PCR NEGATIVE (Negative); SARS COV2 PCR INHOUSE NEGATIVE (Negative)
[2023-10-04 20:34] VITALS: BP 138/76; PULSE 126; RESP 32; TEMP 37.2; O2SAT 94
[2023-10-04] MEDS: Acetaminophen 325 MG TABLET 975 MG PO (21:07)
--- NOTE | 2023-10-04 21:08 | PC.NURSE ---
pt reporting lower back/kidney pain with coughing
[2023-10-04 22:25] VITALS: BP 110/62; PULSE 123; RESP 18; TEMP 36.8; O2SAT 95
[2023-10-04 22:33] LABS: Appearance Urine Clear; Color Urine Yellow; Glucose Urine UA 500 mg/dL (Negative); Leukocyte Esterase Urine Negative (Negative); Nitrite Urine Negative (Negative); Specific Gravity - Urine >= 1.030 (1.005-1.025); Urine Blood Negative (Negative); Urine Ketones Negative (Negative); Urine Protein Negative (Neg-Trace)
--- NOTE | 2023-10-04 22:35 | PC.NURSE ---
pt reported to provider that she has been unable to urinate in days. only pee a little when she coughs. bladder scan showed 56ml, pt unable to urinate on own for UA, straight cath done, urine sent
[2023-10-04] MEDS: Benzonatate 100 MG CAPSULE 200 MG PO (23:00)
[2023-10-04 23:36] VITALS: BP 130/81; PULSE 116; RESP 17; TEMP 36.9; O2SAT 94
== END 2023-10-04 23:48 | disposition home or self-care (01) ==
PROVIDERS: Physician Assistant; Emergency Provider Student in an Organized Health Care Education/Training Program; PCP Internal Medicine
DX: J18.9 Pneumonia, unspecified organism (principal); J45.909 Unspecified asthma, uncomplicated; R06.02 Shortness of breath; R33.9 Retention of urine, unspecified; R05.9 Cough, unspecified; Z20.822 Contact with and (suspected) exposure to COVID-19; Z20.828 Contact with and (suspected) exposure to other viral communicable diseases; Z79.899 Other long term (current) drug therapy
CPT/HCPCS: 0241U; 51702; 51798; 71046; 80053; 81003; 83880; 84484; 85025; 85610; 85730; 93005; 94640; 99284; 99285

== ENCOUNTER 2023-10-06 16:44 | Observation (INO) | payer OTHER, SELFPAY ==
--- NOTE | ~2023-10-06 | XR_ITS ---
EXAMINATION: CHEST 2 VIEWS CLINICAL INFORMATION: SOB, cough. COMPARISON: 10/04/2023. TECHNIQUE: PA and lateral views of the chest obtained. FINDINGS: The lungs are well expanded. No focal infiltrate, effusion, edema, or pneumothorax. Cardiac and mediastinal silhouettes are within normal limits for technique. No acute bony abnormality seen XR/XR chest 2V IMPRESSION: No evidence of acute disease
[2023-10-06 17:14] VITALS: BP 126/78; PULSE 91; RESP 20; TEMP 36.2; O2SAT 95; BMI 34.5
--- NOTE | 2023-10-06 17:14 | ED_ITS ---
HPI - General Adult General Chief complaint: Dyspnea Stated complaint: phenomena Time Seen by Provider: 10/06/23 22:00 Source: patient Mode of arrival: ambulatory Limitations: no limitations History of Present Illness HPI narrative: Patient history of asthma been coughing will last 3 weeks for last 4 days been worse was here on 10/04 x-ray was negative discharged on Augmentin comes back as still coughing a lot and once she starts coughing unable to stop got worse today while she take shaower, also has wheezing no fever no chills patient able take deep breath whenever she takes a deep breath start her coughing trying nebulizing treatment almost every 3 hours without much response Related Data Home Medications Medication Instructions Recorded Confirmed amlodipine 10 mg tablet 10 mg PO DAILY 12/12/20 06/04/23 amitriptyline 25 mg tablet 1 tab PO BEDTIME 07/14/22 06/04/23 metformin 1,000 mg tablet 1 tab PO BIDWM 07/29/22 06/04/23 albuterol sulfate 2.5 mg/3 mL 2.5 mg inhalation BID PRN 08/08/22 06/04/23 (0.083 %) solution for nebulization Shortness Of Breath Or Wheezing blood sugar diagnostic (FreeStyle 08/08/22 06/04/23 Lite Strips) prednisone 10 mg tablet 10 mg PO TID 02/26/23 06/04/23 Previous Rx's Medication Instructions Recorded nebulizers (AeroEclipse II #1 ea 12/22/20 Nebulizer) nebulizers (Compact Compressor #1 ea 12/31/20 Nebulizer) rosuvastatin 40 mg tablet 40 mg PO BEDTIME 90 days #90 tabs 03/13/21 blood-glucose meter (FreeStyle #1 ea 07/19/21 Lite Meter kit) lancets 28 gauge (FreeStyle #200 ea 07/19/21 Lancets) omalizumab 150 mg subcutaneous 300 mg subcut Q2W 28 days #4 ea 08/12/22 solution (Xolair) ezetimibe 10 mg tablet 10 mg PO DAILY #90 tabs 01/15/23 albuterol sulfate 90 mcg/actuation 2 puff inhalation Q4-6H PRN 02/20/23 aerosol inhaler shortness of breath or wheezing #8.5 grams empagliflozin 25 mg tablet 25 mg PO DAILY #30 tabs 03/12/23 (Jardiance) insulin lispro 100 unit/mL 10 unit (0.1 mL) subcut TID #15 mL 03/12/23 subcutaneous pen (Humalog KwikPen (U-100) Insulin) pen needle, diabetic 32 gauge x #100 ea 03/12/23 5/16 (Comfort EZ Pen [place]) nystatin 100,000 unit/mL oral 500,000 unit (5 mL) PO Q6H 1 week 03/24/23 suspension #200 mL bisacodyl 5 mg tablet,delayed 20 mg (4 x 5 mg) PO ONCE 06/04/23 release (Dulcolax (bisacodyl)) colonoscopy prep 1 day #4 tabs docusate sodium 100 mg capsule 200 mg (2 x 100 mg) PO BEDTIME #60 06/04/23 (Colace) caps polyethylene glycol 3350 17 238 g PO ONCE 1 day #238 grams 06/04/23 gram/dose oral powder (Miralax) cholecalciferol (vitamin D3) 50 50 mcg PO DAILY #90 caps 07/08/23 mcg (2,000 unit) capsule blood-glucose transmitter (Dexcom #1 ea 08/12/23 G6 Transmitter device) blood-glucose sensor (Dexcom G7 #3 ea 09/15/23 Sensor device) insulin glargine-yfgn 100 unit/mL 60 unit (0.6 mL) subcut BEDTIME 09/15/23 subcutaneous solution (Semglee PRN BLOOD SUGAR >250 #30 mL (insulin glargine-yfgn)) tirzepatide 12.5 mg/0.5 mL 12.5 mg (0.5 mL) subcut QWEEK #2 mL 09/15/23 subcutaneous pen injector ([place]) meloxicam 15 mg tablet 15 mg PO DAILY #30 tabs 09/18/23 amoxicillin 875 mg-potassium 1 tab PO BID 7 days #14 tabs 10/04/23 clavulanate 125 mg tablet benzonatate 200 mg capsule 200 mg PO TID PRN cough #10 caps 10/04/23 Allergies Allergy/AdvReac Type Severity Reaction Status Date / Time canagliflozin [Invokana] Allergy Unknown rash Verified 09/15/23 08:47 liraglutide Allergy Unknown rash Verified 09/15/23 08:47 animals Allergy Unknown rash Uncoded 09/04/23 13:02 Pt states no known food Allergy Unknown Unknown Uncoded 09/04/23 13:02 allerg Review of Systems 2 Review of Systems: Yes all other systems are reviewed and are negative [facility] Past Medical History Medical History Eosinophilia Obesity due to excess calories Vitamin D deficiency Diabetic 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 with type 2 diabetes 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 Diabetes type 2, uncontrolled Ectopic Hyperlipidemia Hypertension Diabetes Asthma Surgical History History of esophagogastroduodenoscopy (EGD) Hx of colonoscopy History of surgical procedure on mouth Hx of ectopic Family History Family History Father Diabetes mellitus Stomach cancer Mother Diabetes mellitus Ovarian cancer Paternal Grandfather Colon cancer Paternal Aunt Liver cancer Paternal Aunt Liver cancer Social History Household Members: Family Housing: House Do you presently have visiting nurse or other home services: No Alcohol intake: never Patient Tobacco Use Status: Never used Tobacco Advance Directives: Yes Advance Directives on File: Yes Advance Directives Date on File: 07/15/22 service: No Current occupational status: employed Physical Exam ED Vital Signs: Vital Signs - 24 hr 10/06/23 17:14 10/06/23 20:20 10/06/23 22:29 Temperature 97.1 F 97.6 F Pulse Rate 91 92 91 Respiratory Rate 20 20 18 Blood Pressure 126/78 121/82 Pulse Oximetry 95 98 Oxygen Delivery Method Room Air Room Air 10/06/23 22:55 10/07/23 00:07 10/07/23 00:56 Temperature Pulse Rate 107 H 94 94 Respiratory Rate 20 20 20 Blood Pressure 147/106 H Pulse Oximetry 100 97 Oxygen Delivery Method Room Air BMI result Body Mass Index 34.5 Appearance: Alert. Oriented X3. No acute distress. Eyes: PERRLA, ENT: Pharynx normal. Oral Mucosa moist Neck: Normal inspection. Neck supple. CVS: Normal heart rate and rhythm. Pulses normal. Respiratory: No respiratory distress. Equal air entry bilateral, prolonged expiration with frequent cough unable to stop coughing tachypneic Abdomen: Soft and nontender. Bowel sounds are present, Skin: Skin warm and dry. Normal skin color. Normal skin turgor. Extremities: No lower extremity edema. No calf tenderness Neuro: Oriented X 3. No motor deficit. Course Course Course Narrative: This is an RME: Additional HPI, ROS, PE not included below will be deferred to primary provider. This is a 60-[id number]-female, with a hx of asthma, diabetes, HLD, HTN, presenting to the ER with complaints of cough, and CP with coughing x 2-3 weeks. Seen here on 10/04/2023 and was prescribed Tessalon and Augmentin Reporting that she is feeling worse. Plan: Labs, CXR Medications Administered Discontinued Medications Generic Name Dose Route Start Last Admin Trade Name Freq PRN Reason Stop Dose Admin Albuterol Sulfate 5 mg 10/07/23 00:39 10/07/23 00:56 Albuterol Sulfate (0.083%) 2.5 Mg/3 Ml Vial.Neb INHALE 10/07/23 00:40 5 mg ONCE ONE Administration Albuterol Sulfate 2.5 mg/ 0 mg 10/06/23 22:19 10/06/23 22:25 Albuterol/Ipratropium 3 ml INHALE 10/06/23 22:20 7.5 dose ONCE ONE Administration Dexamethasone Sodium Phosphate 10 mg 10/06/23 22:20 10/06/23 22:50 Dexamethasone Sod Phosphate 10 Mg/Ml Vial IVPUSH 10/06/23 22:21 10 mg ONCE ONE Administration Guaifenesin/Codeine Phosphate 10 ml 10/06/23 22:19 10/06/23 22:50 Guaifen/Codeine Sf 200/20/10ml 10 Ml Liquid PO 10/06/23 22:20 10 ml ONCE ONE Administration Medical Decision Making Medical Decision Making [facility] Narrative: Patient has acute bronchitis with frequent hospital visits received nebulizing treatment and IV prednisone feeling much better but is still coughing does not feel safe to go home will admit patient for supportive treatment case discussed with hospitalist will admit patient received Decadron and x2 nebulizing treatment Differential Diagnosis Differential Diagnoses: The differential diagnosis associated with the presentation includes Bronchitis/pneumonia Admission/Observation Consideration of admission/observation: Escalation of care including admission/observation considered Lab Data [facility] Lab Attestation statement: I reviewed the patient's lab results. 10/06/23 18:49 10/06/23 18:49 Labs: Lab Results 10/06/23 Range/Units 18:49 WBC 9.3 (4.8-10.8) X10*3/uL RBC 4.98 (4.20-5.50) X10*6/uL Hgb 13.8 (12.0-16.0) g/dl Hct 41.3 (37.0-47.0) % MCV 82.9 (80.0-98.0) fL MCH 27.7 (27.0-33.0) pg MCHC 33.4 (31.0-35.0) g/dl RDW 14.0 (11.0-16.0) % Plt Count 308 (160-400) X10*3/uL MPV 9.9 (9.4-12.3) fL Immature Gran % (Auto) 0.2 (0.0-0.4) % Neut % (Auto) 60.5 (45-73) % Lymph % (Auto) 29.1 (20-40) % Payne % (Auto) 6.2 (2-11) % Eos % (Auto) 3.6 (0-4) % Baso % (Auto) 0.4 (0-2) % Lymph # (Auto) 2.7 (1.2-4.9) X10*3/uL Payne # (Auto) 0.6 (0.1-1.2) X10*3/uL Eos # (Auto) 0.3 (0.0-0.4) X10*3/uL Baso # (Auto) 0.0 (0.0-0.2) X10*3/uL Abs Immat Gran (auto) 0.02 (0.00-0.03) X10*3/uL Absolute Neuts (auto) 5.6 (2.0-8.3) x10*3/uL Absolute Nucleated RBC 0.000 (0.0-0.012) X10*3/uL Nucleated RBC % (auto) 0.0 (0.0-0.2) /100WBC Sodium 142 (135-145) mmol/L Potassium 3.8 (3.3-5.1) mmol/L Chloride 109 H (96-108) mmol/L Carbon Dioxide 27 (22-29) mmol/L Anion Gap 10 L (12-20) BUN 6 L (9-16) mg/dL Creatinine 0.54 (0.5-1.4) mg/dL Estim Creat Clear Calc 152.9 Estimated GFR > 60 Random Glucose 116 H (60-115) mg/dL Calcium 9.4 (8.4-10.2) mg/dL Total Bilirubin 1.1 H (0.0-1.0) mg/dL Direct Bilirubin 0.3 (0.0-0.5) mg/dL AST 12 (5-31) U/L ALT 17 (0-31) U/L Alkaline Phosphatase 71 (39-117) U/L Total Protein 7.1 (6.5-8.0) g/dL Albumin 3.8 (3.5-5.0) g/dL Influenza Type A (PCR) NEGATIVE (Negative) Influenza Type B (PCR) NEGATIVE (Negative) RSV RNA Qual (PCR) NEGATIVE (Negative) SARS-CoV-2 RNA (RT-PCR) NEGATIVE (Negative) Independent Interpretation I performed an independent interpretation of an: Plain X-Ray Radiology Impression Discussion of test interpretation with radiology: I have reviewed the radiologist's reading. Critical Care Time Critical Care Time Critical Care Time: Yes Total Critical Care Time: 45 Attestation: The patient was critically ill with a high probability of imminent or life threatening deterioration. I spent greater than 50 minutes of discontinuous time evaluating the patient,delivering critical care at the bedside, discussing and evaluating pertinent data with consultants. Critical care time does not include time spent performing separately billable procedures or teaching. Total time spent performing critical care was 45 minutes. Discharge Plan Discharge Clinical Impression: Acute asthmatic bronchitis Patient Disposition: Admitted As Inpatient
[2023-10-06 18:55] LABS: MANUAL DIFF FLAG NO
[2023-10-06 19:10] LABS: Alanine Aminotransferase 17 U/L (0-31); Albumin Level 3.8 g/dL (3.5-5.0); Alkaline Phosphatase 71 U/L (39-117); Anion Gap 10 (12-20); Aspartate Amino Transferase 12 U/L (5-31); Bilirubin Direct 0.3 mg/dL (0.0-0.5); Bilirubin Total 1.1 mg/dL (0.0-1.0); Blood Urea Nitrogen 6 mg/dL (9-16); Calcium 9.4 mg/dL (8.4-10.2); Carbon Dioxide 27 mmol/L (22-29); Chloride 109 mmol/L (96-108); Creatinine Clr Calc Pharmacy 152.9; Estimated Glomerular Filt Rate > 60; Glucose Random 116 mg/dL (60-115); Potassium 3.8 mmol/L (3.3-5.1); Sodium 142 mmol/L (135-145); Total Protein 7.1 g/dL (6.5-8.0)
[2023-10-06 19:31] LABS: Basophils Percent Auto 0.4 % (0-2); Eosinophils Absolute Auto 0.3 X10*3/uL (0.0-0.4); Eosinophils Percent Auto 3.6 % (0-4); Hematocrit 41.3 % (37.0-47.0); Hemoglobin 13.8 g/dl (12.0-16.0); Imm Gran Abs Auto 0.02 X10*3/uL (0.00-0.03); Imm Gran Pct Auto 0.2 % (0.0-0.4); Lymphocytes Absolute Auto 2.7 X10*3/uL (1.2-4.9); Lymphocytes Percent Auto 29.1 % (20-40); Mean Corpuscular HGB Conc 33.4 g/dl (31.0-35.0); Mean Corpuscular Hemoglobin 27.7 pg (27.0-33.0); Mean Corpuscular Volume 82.9 fL (80.0-98.0); Mean Platelet Volume 9.9 fL (9.4-12.3); Monocytes Absolute Auto 0.6 X10*3/uL (0.1-1.2); Monocytes Percent Auto 6.2 % (2-11); Neutrophils Absolute Auto 5.6 x10*3/uL (2.0-8.3); Neutrophils Percent Auto 60.5 % (45-73); Platelet Count 308 X10*3/uL (160-400); Red Blood Count 4.98 X10*6/uL (4.20-5.50); White Blood Count 9.3 X10*3/uL (4.8-10.8)
[2023-10-06 19:32] LABS: Influenza A PCR NEGATIVE (Negative); Influenza B PCR NEGATIVE (Negative); Resp Syncy Virus RNA Qual PCR NEGATIVE (Negative); SARS COV2 PCR INHOUSE NEGATIVE (Negative)
[2023-10-06 20:20] VITALS: BP 121/82; PULSE 92; RESP 20; TEMP 36.4; O2SAT 98
[2023-10-06] MEDS: Albuterol Sulfate 2.5 MG, Albuterol/Iprat 2.5/0.5MG 3 ML 3 ML INHALE (22:25)
[2023-10-06 22:29] VITALS: PULSE 91; RESP 18; O2SAT 98
[2023-10-06] MEDS: dexAMETHasone sod phosphate 10 MG/ML VIAL IVPUSH (22:50)
[2023-10-06] MEDS: guaiFEN/Codeine SF 200/20/10ML 10 ML LIQUID PO (22:50)
[2023-10-06 22:55] VITALS: PULSE 107; RESP 20; O2SAT 100
--- NOTE | 2023-10-06 23:00 | PC.NURSE ---
Pt A&Ox4, reports worsening dry cough, and SOB x few days. Pt speaking in full sentences, Spo2 97% on RA. Lung sounds wheezing. IV line placed, Pt medicated per JAN.
[2023-10-07 00:07] VITALS: BP 147/106; PULSE 94; RESP 20; O2SAT 97
--- NOTE | 2023-10-07 00:46 | P.HPHOSP_ITS ---
History of Present Illness Date of Service: 10/07/23 Chief Complaint: Dyspnea This is a 47-year-old female with pertinent history of asthma not on home oxygen, add-rpdjbdr-qyisscccn diabetes mellitus, essential hypertension, mood disorder, mixed hyperlipidemia who presents to the emergency department for evaluation of dyspnea. Patient states she has ongoing dyspnea which has been worse with ambulation and associated with wheezing that started 3 weeks prior to presentation. Patient presented to the emergency department 2 days prior to presentation and was discharged with p.o. prednisone and Augmentin. Patient noted no relief and presents to the ER again for progressive dyspnea, wheezing and cough. Patient states she has been compliant with home inhaler but no relief. No fever or chills. No chest discomfort, palpitations, abdominal pain, changes in urinary or bowel habits. In the emergency department, patient with continued wheezing despite multiple DuoNeb treatments. Review of Systems 2 Constitutional: Constitutional: Reports fatigue and Reports lethargy Cardiovascular: Cardiovascular: Reports no additional cardiovascular complaints and Reports dyspnea on exertion Respiratory: Respiratory: Reports cough, Reports dyspnea on exertion and Reports wheezing Gastrointestinal: Gastrointestinal: Reports no additional gastrointestinal complaints Genitourinary: Genitourinary: Reports no additional female genitourinary complaints Endocrine: Endocrine: Reports fatigue Allergic/Immunologic: Allergic/Immunologic: Reports wheezing [facility], [facility] Medical History Eosinophilia Obesity due to excess calories Vitamin D deficiency Diabetic 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 with type 2 diabetes mellitus 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 Diabetes type 2, uncontrolled Ectopic Hyperlipidemia Hypertension Diabetes Asthma Family History Father Diabetes mellitus Stomach cancer Mother Diabetes mellitus Ovarian cancer Paternal Grandfather Colon cancer Paternal Aunt Liver cancer Paternal Aunt Liver cancer Surgical History History of esophagogastroduodenoscopy (EGD) Hx of colonoscopy History of surgical procedure on mouth Hx of ectopic Household Members: Family Housing: House Do you presently have visiting nurse or other home services: No Alcohol intake: never Patient Tobacco Use Status: Never used Tobacco Advance Directives: Yes Advance Directives on File: Yes Advance Directives Date on File: 07/15/22 service: No Current occupational status: employed Meds Allergies Allergy/AdvReac Type Severity Reaction Status Date / Time canagliflozin [Invokana] Allergy Unknown rash Verified 09/15/23 08:47 liraglutide Allergy Unknown rash Verified 09/15/23 08:47 animals Allergy Unknown rash Uncoded 09/04/23 13:02 Pt states no known food Allergy Unknown Unknown Uncoded 09/04/23 13:02 allerg Home Medications Medication Instructions Recorded Confirmed Last Taken Type amlodipine 10 mg tablet 10 mg PO DAILY 12/12/20 06/04/23 02/26/23 History amitriptyline 25 mg tablet 1 tab PO BEDTIME 07/14/22 06/04/23 02/25/23 History metformin 1,000 mg tablet 1 tab PO BIDWM 07/29/22 06/04/23 02/26/23 History albuterol sulfate 2.5 mg/3 mL 2.5 mg inhalation BID PRN 08/08/22 06/04/23 Unknown History (0.083 %) solution for nebulization Shortness Of Breath Or Wheezing blood sugar diagnostic (FreeStyle 08/08/22 06/04/23 Unknown History Lite Strips) prednisone 10 mg tablet 10 mg PO TID 02/26/23 06/04/23 02/26/23 History Physical Exam 2 Vital Signs and Narrative: Vital Signs: Last Vital Signs Temp 97.6 F 10/06/23 20:20 Pulse 94 10/07/23 00:07 Resp 20 10/07/23 00:07 BP 147/106 H 10/07/23 00:07 Pulse Ox 97 10/07/23 00:07 O2 Del Method Room Air 10/07/23 00:07 BMI result Body Mass Index 34.5 Middle-aged female lying in bed in mild distress Neck supple, no JVD Regular rate and rhythm, S1-S2 heard Bilateral expiratory wheezing with tachypnea Abdomen soft nontender, no guarding, no rigidity Patient is awake, alert and oriented to self, place, time and person ; no focal motor deficit Psych: Normal mood No pedal edema Results Labs 10/06/23 18:49 10/06/23 18:49 Labs: Laboratory Results - last 24 hr 10/06/23 18:49 MCV 82.9 MCH 27.7 MCHC 33.4 RDW 14.0 Plt Count 308 MPV 9.9 Immature Gran % (Auto) 0.2 Neut % (Auto) 60.5 Lymph % (Auto) 29.1 [place] % (Auto) 6.2 Eos % (Auto) 3.6 Baso % (Auto) 0.4 Lymph # (Auto) 2.7 [place] # (Auto) 0.6 Eos # (Auto) 0.3 Baso # (Auto) 0.0 Abs Immat Gran (auto) 0.02 Absolute Neuts (auto) 5.6 Absolute Nucleated RBC 0.000 Nucleated RBC % (auto) 0.0 Anion Gap 10 L Estim Creat Clear Calc 152.9 Estimated GFR > 60 Random Glucose 116 H Calcium 9.4 Total Bilirubin 1.1 H Direct Bilirubin 0.3 AST 12 ALT 17 Alkaline Phosphatase 71 Total Protein 7.1 Albumin 3.8 Influenza Type A (PCR) NEGATIVE Influenza Type B (PCR) NEGATIVE RSV RNA Qual (PCR) NEGATIVE SARS-CoV-2 RNA (RT-PCR) NEGATIVE Imaging Radiologist's Impressions: Impressions Chest X-Ray 10/06/23 17:39 IMPRESSION: No evidence of acute disease Assessment and Plan (1) Asthma exacerbation: Status: Acute Plan This is a 47-year-old female with pertinent history of asthma not on home oxygen, lfp-gekatko-sfxvavljf diabetes mellitus, essential hypertension, mood disorder, mixed hyperlipidemia who presents to the emergency department for evaluation of dyspnea. #. Acute respiratory distress due to acute exacerbation of severe persistent asthma: Will admit patient and initiate IV systemic steroids. Scheduled and p.r.n. DuoNebs. Continue home inhaler. #. Adx-eoxzxmt-hiymwmoeo diabetes mellitus: Initiating Accu-Cheks with sliding scale insulin #. Essential hypertension: Continue home antihypertensives #. Mixed hyperlipidemia: On statin and Zetia #. Mood disorder: Continue home mood stabilizers Med rec pending DVT prophylaxis: Lovenox Full code Quality Stroke Does the patient have a stroke diagnosis?: No VTE Prior VTE?: No VTE Risk Level:: Medical - moderate - high VTE Device Contraindication: Treatment Not Indicated VTE Drug Contraindication: N/A - Med Ordered
[2023-10-07 00:56] VITALS: PULSE 94; RESP 20; O2SAT 95
[2023-10-07] MEDS: Albuterol Sulfate (0.083%) 2.5 MG/3 ML VIAL.NEB 5 MG INHALE (00:56)
[2023-10-07 05:03] VITALS: BP 129/81; PULSE 102; RESP 18; TEMP 36.7; O2SAT 95
[2023-10-07] MEDS: methylPREDNISolone Sod Succ 40 MG/ML VIAL IVPUSH (05:28)
[2023-10-07] MEDS: Benzonatate 100 MG CAPSULE 200 MG PO (05:35)
[2023-10-07 06:07] LABS: Basophils Percent Auto 0.1 % (0-2); Hematocrit 39.5 % (37.0-47.0); Hemoglobin 13.4 g/dl (12.0-16.0); Imm Gran Abs Auto 0.03 X10*3/uL (0.00-0.03); Imm Gran Pct Auto 0.3 % (0.0-0.4); Lymphocytes Absolute Auto 0.7 X10*3/uL (1.2-4.9); Lymphocytes Percent Auto 7.1 % (20-40); MANUAL DIFF FLAG SCAN; Mean Corpuscular HGB Conc 33.9 g/dl (31.0-35.0); Mean Corpuscular Hemoglobin 27.8 pg (27.0-33.0); Mean Platelet Volume 10.1 fL (9.4-12.3); Monocytes Absolute Auto 0.1 X10*3/uL (0.1-1.2); Monocytes Percent Auto 0.7 % (2-11); Neutrophils Absolute Auto 9.1 x10*3/uL (2.0-8.3); Neutrophils Percent Auto 91.8 % (45-73); Platelet Count 299 X10*3/uL (160-400); Red Blood Count 4.82 X10*6/uL (4.20-5.50); Red Cell Distribution Width 13.9 % (11.0-16.0); SCAN SMEAR FLAG 1; White Blood Count 9.9 X10*3/uL (4.8-10.8)
[2023-10-07 06:31] LABS: SLIDE REVIEW VERIFIED
[2023-10-07 06:42] LABS: Anion Gap 14 (12-20); Blood Urea Nitrogen 7 mg/dL (9-16); Calcium 9.2 mg/dL (8.4-10.2); Carbon Dioxide 20 mmol/L (22-29); Chloride 107 mmol/L (96-108); Creatinine Clr Calc Pharmacy 144.8; Estimated Glomerular Filt Rate > 60; Glucose Random 250 mg/dL (60-115); Potassium 3.8 mmol/L (3.3-5.1); Sodium 137 mmol/L (135-145)
--- NOTE | 2023-10-07 07:13 | PC.NURSE ---
ASSUMED CARE OF PT AT THIS TIME.
[2023-10-07 07:25] LABS: Glucose, Whole Blood 245 mg/dL (60-115)
--- NOTE | 2023-10-07 07:41 | PHA.MEDREC ---
Pharmacy Consult ? Medication Reconciliation Pharmacy has completed the medication reconciliation. Reviewed med rec done by nursing, confirmed with Che that she spoke to patient/family
[2023-10-07] MEDS: Enoxaparin Sodium 40 MG/0.4 ML SYRINGE SUBCUT (08:20)
[2023-10-07] MEDS: Insulin Lispro 100 UNIT/ML 3 ML VIAL SUBCUT ×2 (08:20→12:52)
[2023-10-07] MEDS: 0.9 % Sodium Chloride Flush 3 ML SYRINGE IVFLUSH (08:20)
[2023-10-07] MEDS: Albuterol/Iprat 2.5/0.5MG 3 ML AMPUL.NEB INHALE ×2 (09:08→11:38)
[2023-10-07 09:13] VITALS: PULSE 90; RESP 18
[2023-10-07 11:40] VITALS: PULSE 90; RESP 16; O2SAT 95
[2023-10-07 12:27] VITALS: BP 138/80; PULSE 104; RESP 20; O2SAT 95
[2023-10-07 12:34] LABS: Glucose, Whole Blood 239 mg/dL (60-115)
--- NOTE | 2023-10-07 13:28 | MHC.CM.PN ---
JOHNSON DELIVERED. FROM HOME WITH DAUGHTER, NO SVCS, AMBULATES INDEPENDENTLY MOST TIMES, BUT USES WALKER PRN WHEN FEELING SOB. HAS NEB AND O2, PT PURCHASED O2 WITHOUT ORDER, STATES SHE SLEEPS WITH 1L WHEN FEELING SOB. HCP: MIKE DUNHAM [phone] PCP: JOSEF PATTERSON DCP: GOAL IS RETURN HOME, SELF CARE, DAUGHTER TO TRANSPORT
--- NOTE | 2023-10-07 14:44 | PM.DS ---
DS: Providers Provider Date of Service: 10/07/23 Date of admission: 10/07/23 00:44 Primary care physician: Shandra Diaz MD DS: Transfer Hospital Acceptance Reason for Transfer: Chief Complaint: Dyspnea This is a 47-year-old female with pertinent history of asthma not on home oxygen, [id number] diabetes mellitus, essential hypertension, mood disorder, mixed hyperlipidemia who presents to the emergency department for evaluation of dyspnea. Patient states she has ongoing dyspnea which has been worse with ambulation and associated with wheezing that started 3 weeks prior to presentation. Patient presented to the emergency department 2 days prior to presentation and was discharged with p.o. prednisone and Augmentin. Patient noted no relief and presents to the ER again for progressive dyspnea, wheezing and cough. Patient states she has been compliant with home inhaler but no relief. No fever or chills. No chest discomfort, palpitations, abdominal pain, changes in urinary or bowel habits. In the emergency department, patient with continued wheezing despite multiple DuoNeb treatments. Hospital course: Patient was admitted for acute exacerbation of asthm and treated with IV steroid and bronchodilators and has made rapid recovery and presently has no synmptoms, lungs are clear and wishes to go home. She will be disharged with 3 more day of steroid for total of 5 days DS: Diagnosis Discharge Diagnosis (1) Asthma exacerbation: Status: Acute DS: Summary Time Attestation Discharge coordination time: Greater than 30 minutes Quality: Safe Use of Opioids Does Pt have an Active Cancer Diagnosis on the Problem List?: No Quality: Stroke Does the patient have a stroke diagnosis?: No Physical Exam Vital Signs: Vital Signs: Last Vital Signs Temp 98.0 F 10/07/23 05:03 Pulse 104 H 10/07/23 12:27 Resp 20 10/07/23 12:27 BP 138/80 10/07/23 12:27 Pulse Ox 95 10/07/23 12:27 O2 Del Method Room Air 10/07/23 12:27 O2 Flow Rate 2 10/07/23 05:03 BMI result Body Mass Index 34.5 Const: Other: General: AO X 3, no acute distress Resp: CTA bilateral, no wheezes, no distress CVS: S1,S2,RRR GI: +BS, NT, no distention Skin: No rash Neuro: motor grossly intact Psych: appropriate affect DS: Data Data Completed and Pending Labs on day of discharge: Laboratory Results - last 24 hr 10/06/23 10/07/23 10/07/23 18:49 04:58 07:18 WBC 9.3 9.9 RBC 4.98 4.82 Hgb 13.8 13.4 Hct 41.3 39.5 MCV 82.9 82.0 MCH 27.7 27.8 MCHC 33.4 33.9 RDW 14.0 13.9 Plt Count 308 299 MPV 9.9 10.1 Immature Gran % (Auto) 0.2 0.3 Neut % (Auto) 60.5 91.8 H Lymph % (Auto) 29.1 7.1 L [place] % (Auto) 6.2 0.7 L Eos % (Auto) 3.6 0.0 Baso % (Auto) 0.4 0.1 Lymph # (Auto) 2.7 0.7 L [place] # (Auto) 0.6 0.1 Eos # (Auto) 0.3 0.0 Baso # (Auto) 0.0 0.0 Abs Immat Gran (auto) 0.02 0.03 Absolute Neuts (auto) 5.6 9.1 H Absolute Nucleated RBC 0.000 0.000 Nucleated RBC % (auto) 0.0 0.0 Smear Tech's Comments VERIFIED Sodium 142 137 Potassium 3.8 3.8 Chloride 109 H 107 Carbon Dioxide 27 20 L Anion Gap 10 L 14 BUN 6 L 7 L Creatinine 0.54 0.57 Estim Creat Clear Calc 152.9 144.8 Estimated GFR > 60 > 60 POC Glucose 245 H Random Glucose 116 H 250 H Calcium 9.4 9.2 Total Bilirubin 1.1 H Direct Bilirubin 0.3 AST 12 ALT 17 Alkaline Phosphatase 71 Total Protein 7.1 Albumin 3.8 Influenza Type A (PCR) NEGATIVE Influenza Type B (PCR) NEGATIVE RSV RNA Qual (PCR) NEGATIVE SARS-CoV-2 RNA (RT-PCR) NEGATIVE 10/07/23 12:25 WBC RBC Hgb Hct MCV MCH MCHC RDW Plt Count MPV Immature Gran % (Auto) Neut % (Auto) Lymph % (Auto) [place] % (Auto) Eos % (Auto) Baso % (Auto) Lymph # (Auto) [place] # (Auto) Eos # (Auto) Baso # (Auto) Abs Immat Gran (auto) Absolute Neuts (auto) Absolute Nucleated RBC Nucleated RBC % (auto) Smear Tech's Comments Sodium Potassium Chloride Carbon Dioxide Anion Gap BUN Creatinine Estim Creat Clear Calc Estimated GFR POC Glucose 239 H Random Glucose Calcium Total Bilirubin Direct Bilirubin AST ALT Alkaline Phosphatase Total Protein Albumin Influenza Type A (PCR) Influenza Type B (PCR) RSV RNA Qual (PCR) SARS-CoV-2 RNA (RT-PCR) Discharge Plan Discharge Anticipated Discharge Date/Time: 10/07/23 14:35 Patient Disposition: Home, Self-Care Discharge Diagnosis: Asthma exacerbation Referrals: Shandra Diaz MD [Primary Care Provider] - 1 Week Discharge Medications: New prednisone 10 mg tablet 30 mg PO DAILY Qty: 9 0RF Rx Instructions: see taper instructions Continued Xolair 150 mg recon soln 300 mg subcut Q2W 28 Days Qty: 4 12RF Rx Instructions: requires multiple injection sites; do not exceed 150 mg per injection site ezetimibe 10 mg tablet 10 mg PO DAILY Qty: 90 4RF cholecalciferol (vitamin D3) 50 mcg (2,000 unit) capsule 50 mcg PO DAILY Qty: 90 1RF (DME) [email or web address] G6 Transmitter Device See Rx Instructions .ROUTE .COMPLEX Qty: 1 0RF Dose Instruction: DIRECTED Rx Instructions: DIRECTED (DME) nebulizers [AeroEclipse II Nebulizer] Misc See Rx Instructions .ROUTE .MEDSUPPLY Qty: 1 0RF Rx Instructions: As directed (DME) nebulizers [Compact Compressor Nebulizer] Misc See Rx Instructions .ROUTE .MEDSUPPLY Qty: 1 0RF Rx Instructions: As directed amitriptyline 25 mg tablet 1 tab PO BEDTIME metformin 1,000 mg tablet 1 tab PO BIDWM insulin glargine-yfgn [Semglee(insulin glargine-yfgn)] 100 unit/mL solution 30 unit subcut BEDTIME PRN (Reason: BLOOD SUGAR >250) Mounjaro 12.5 mg/0.5 mL pen injector 10 mg subcut QWEEK prednisone 10 mg tablet 10 mg PO TID benzonatate 200 mg capsule 200 mg PO TID PRN (Reason: cough) Qty: 10 0RF (DME) blood-glucose meter [FreeStyle Lite Meter] Kit See Rx Instructions .ROUTE .MEDSUPPLY Qty: 1 0RF Rx Instructions: As directed (DME) lancets [FreeStyle Lancets] 28 gauge misc See Rx Instructions .ROUTE .MEDSUPPLY Qty: 200 1RF Rx Instructions: 5x/day amlodipine 10 mg tablet 10 mg PO DAILY rosuvastatin 40 mg tablet 40 mg PO BEDTIME 90 Days Qty: 90 2RF (DME) FreeStyle Lite Strips Strip See Rx Instructions .Route Rx Instructions: As directed albuterol sulfate 2.5 mg /3 mL (0.083 %) solution for nebulization 2.5 mg inhalation BID PRN (Reason: Shortness Of Breath Or Wheezing) Jardiance 25 mg tablet 25 mg PO DAILY Qty: 30 5RF (DME) pen needle, diabetic [Comfort EZ Pen [place]] 32 gauge x 5/16 needle See Rx Instructions .Route Qty: 100 6RF Rx Instructions: As directed injects 4X/day bisacodyl [Dulcolax (bisacodyl)] 5 mg tablet,delayed release (DR/EC) 20 mg PO ONCE 1 Days Qty: 4 0RF Rx Instructions: Take 4 tablets by mouth at 12:00pm the day before your procedure. docusate sodium [Colace] 100 mg capsule 200 mg PO BEDTIME Qty: 60 5RF (DME) Dexcom G7 Sensor Device See Rx Instructions .Route Qty: 3 5RF Rx Instructions: As directed change every 10 days Discharge Orders: Discharge Order (Routine); Ordered 10/07/23 Ordered By: Mehdi Alexandra Diet: Advance to usual diet Activity on Discharge: As tolerated Stand Alone Forms: Patient Portal Discharge page Care Plan Goals: full recovery from asthma Health Concerns: asthma Plan of Treatment: Take prednisone as recommended continue taking your inhalers as before Assessment: as above
== END 2023-10-07 15:24 | disposition home or self-care (01) ==
LOC: HO.ED 10-07 01:08 → HO.EDOVER 10-07 01:26 → HO.IMC 10-07 14:01
PROVIDERS: Physician Assistant Medical; Admitting Provider Student in an Organized Health Care Education/Training Program; Emergency Provider Internal Medicine; PCP Internal Medicine; Visit Provider Internal Medicine
DX: J45.901 Unspecified asthma with (acute) exacerbation (principal); R06.00 Dyspnea, unspecified; R05.9 Cough, unspecified; E11.9 Type 2 diabetes mellitus without complications; I10 Essential (primary) hypertension; E78.2 Mixed hyperlipidemia; Z20.822 Contact with and (suspected) exposure to COVID-19; Z20.828 Contact with and (suspected) exposure to other viral communicable diseases
CPT/HCPCS: 0241U; 36415; 71046; 80048; 80076; 82947; 85025; 94640; 96372; 96374; 96375; 99222; 99285; J1100; J1650; J2920

== ENCOUNTER → 2023-10-06 21:20 | Outpatient (BNV) | payer OTHER, SELFPAY | PROVIDERS: Emergency Provider Internal Medicine; PCP Internal Medicine; Visit Provider Student in an Organized Health Care Education/Training Program | DX: J45.901 Unspecified asthma with (acute) exacerbation (principal) | CPT/HCPCS: 99235; 99499 ==

== ENCOUNTER 2023-10-16 10:11 | Outpatient (REF) | payer OTHER, SELFPAY | END 2023-10-16 10:12 | disposition home or self-care (01) | LOC: HO.MDS 10:11 | PROVIDERS: Visit Provider Internal Medicine Pulmonary Disease | DX: J45.50 Severe persistent asthma, uncomplicated (principal) | CPT/HCPCS: 96372; J2357 ==

== ENCOUNTER 2023-12-12 07:25 | Outpatient (REF) | payer OTHER, SELFPAY ==
[2023-12-12 10:11] LABS: Estimated Average Glucose 160 mg/dL; Hemoglobin A1c % 7.2 % (<6.0)
[2023-12-12 10:19] LABS: Alanine Aminotransferase 19 U/L (0-31); Alkaline Phosphatase 63 U/L (39-117); Anion Gap 11 (12-20); Aspartate Amino Transferase 12 U/L (5-31); Bilirubin Total 0.8 mg/dL (0.0-1.0); Blood Urea Nitrogen 8 mg/dL (9-16); Calcium 9.1 mg/dL (8.4-10.2); Carbon Dioxide 25 mmol/L (22-29); Chloride 109 mmol/L (96-108); Estimated Glomerular Filt Rate > 60; Glucose Random 172 mg/dL (60-115); Sodium 141 mmol/L (135-145); Total Protein 6.8 g/dL (6.5-8.0)
== END 2023-12-12 07:26 | disposition home or self-care (01) ==
LOC: HO.LAB 07:25
PROVIDERS: PCP Internal Medicine; Visit Provider Internal Medicine
DX: E11.9 Type 2 diabetes mellitus without complications (principal); E78.00 Pure hypercholesterolemia, unspecified; I10 Essential (primary) hypertension; J45.998 Other asthma
CPT/HCPCS: 36415; 80053; 83036

== ENCOUNTER → 2023-12-18 16:15 | Outpatient (BNV) | payer OTHER, SELFPAY | PROVIDERS: PCP Internal Medicine; Visit Provider Radiology Diagnostic Radiology | DX: Z12.31 Encounter for screening mammogram for malignant neoplasm of breast (principal) | CPT/HCPCS: 77063; 77067 ==

== ENCOUNTER 2023-12-18 16:17 | Outpatient (REF) | payer OTHER, SELFPAY ==
--- NOTE | ~2023-12-18 | MM_ITS ---
EXAMINATION: MM SCREENING DIGITAL BREAST TOMOSYNTHESIS, BILATERAL CLINICAL INFORMATION: Screening. Asymptomatic. COMPARISON: Mammography: This study is compared with prior exams dating back to 2018. TECHNIQUE: Digital breast tomosynthesis is performed in both the craniocaudal and mediolateral oblique views along with computer-aided detection (CAD). Synthesized 2D images are generated from the tomosynthesis. FINDINGS: There are scattered areas of fibroglandular density (ACR BI-RADS breast composition Category b). There is a focal asymmetry of the upper outer quadrant of the left breast and anterior depth. Additional mammographic and targeted sonographic evaluation of this finding is advised. In the right breast, there are no significant masses, abnormal calcifications, or other abnormalities. MM/MM tomosynthesis screening BI IMPRESSION: Focal asymmetry of the left breast warrants additional mammographic and targeted sonographic evaluation. No mammographic signs of malignancy right breast. ASSESSMENT: BI-RADS BI-RADS 0 - Incomplete: Needs additional Imaging. RECOMMENDATION: 1. Additional views of the left breast 2. Targeted ultrasound if warranted after review of the additional views. 3. Radiology department staff will contact the patient for additional imaging. Additional Imaging required This examination should not preclude the clinical evaluation of a suspicious palpable abnormality. This patient's information was entered into a reminder system with a target due date for their next mammogram.
== END 2023-12-18 16:18 | disposition home or self-care (01) ==
LOC: HO.MAMMO 16:17
PROVIDERS: PCP Internal Medicine; Visit Provider Internal Medicine
DX: Z12.31 Encounter for screening mammogram for malignant neoplasm of breast (principal)
CPT/HCPCS: 77063; 77067

== ENCOUNTER 2023-12-22 15:10 | Outpatient (REF) | payer OTHER, SELFPAY | END 2023-12-22 15:11 | disposition home or self-care (01) | LOC: HO.MDS 15:10 | PROVIDERS: Visit Provider Internal Medicine Pulmonary Disease | DX: J45.50 Severe persistent asthma, uncomplicated (principal) | CPT/HCPCS: 96372; J2357 ==

== ENCOUNTER 2024-01-02 20:58 | Emergency (ER) | payer OTHER, SELFPAY ==
[2024-01-02] MEDS: Ondansetron ODT 4 MG TAB.RAPDIS TRANSLINGU (21:06)
[2024-01-02 21:07] VITALS: BP 153/108; PULSE 88; RESP 16; TEMP 36.4; O2SAT 97; BMI 37.4
[2024-01-02 22:11] VITALS: BP 144/93; PULSE 84; RESP 14; TEMP 36.8; O2SAT 96
--- NOTE | 2024-01-02 22:18 | PC.NURSE ---
Pt aox4 reporting headache to the frontal area. Reports being [facility] today when the headache suddenly started and having a syncopal episode where caught me . Hx of migraines. Took Amitriptyline and Tylenol today with no relief. Lights deemed for comfort. Call wan placed within reach. Pending labs and physician evaluation.
--- NOTE | 2024-01-02 23:09 | ECG_ITS ---
Test Reason : HEADACHE Blood Pressure : / mmHG Vent. Rate : 077 BPM Atrial Rate : 077 BPM P-R Int : 140 ms QRS Dur : 098 ms QT Int : 380 ms P-R-T Axes : 054 038 048 degrees QTc Int : 430 ms Normal sinus rhythm Normal ECG When compared with ECG of 04-OCT-2023 19:16, Vent. rate has decreased BY 42 BPM Non-specific change in ST segment in Inferior leads Referred By: Jose Barr Electronically Signed By:Dony Be
[2024-01-02 23:20] LABS: MANUAL DIFF FLAG NO
[2024-01-02 23:21] LABS: Basophils Percent Auto 0.3 % (0-2); Eosinophils Percent Auto 0.4 % (0-4); Hematocrit 41.6 % (37.0-47.0); Hemoglobin 14.1 g/dl (12.0-16.0); Imm Gran Abs Auto 0.03 X10*3/uL (0.00-0.03); Imm Gran Pct Auto 0.3 % (0.0-0.4); Lymphocytes Absolute Auto 2.2 X10*3/uL (1.2-4.9); Lymphocytes Percent Auto 23.2 % (20-40); Mean Corpuscular HGB Conc 33.9 g/dl (31.0-35.0); Mean Corpuscular Hemoglobin 27.3 pg (27.0-33.0); Mean Corpuscular Volume 80.5 fL (80.0-98.0); Mean Platelet Volume 9.9 fL (9.4-12.3); Monocytes Absolute Auto 0.4 X10*3/uL (0.1-1.2); Monocytes Percent Auto 4.6 % (2-11); Neutrophils Absolute Auto 6.6 x10*3/uL (2.0-8.3); Neutrophils Percent Auto 71.2 % (45-73); Platelet Count 271 X10*3/uL (160-400); Red Blood Count 5.17 X10*6/uL (4.20-5.50); Red Cell Distribution Width 13.2 % (11.0-16.0); White Blood Count 9.3 X10*3/uL (4.8-10.8)
--- NOTE | 2024-01-02 23:23 | ED.GENADULT ---
HPI - General Adult General Chief complaint: Headache Stated complaint: headache,vomiting Time Seen by Provider: 01/02/24 22:58 Source: patient, RN notes reviewed and old records reviewed Mode of arrival: ambulatory Limitations: no limitations History of Present Illness HPI narrative: 48-year-old female presents for evaluation of headache and a syncopal episode Patient reports that she has been worked up for syncope in the past and ?it happens semi frequently. ? She reports that she generally always gets a headache prior to her syncopal episodes She states that she has had a frontal headache all day. While she was in [place] she had 1 of her syncopal episodes. She states that she did fall down but her caught her and prevent any injury or head strike Currently she still complains of a headache Denies any nausea, vomiting, diarrhea Denies any flu-like symptoms including cough, congestion, sore throat No other complaints or concerns at this time Related Data Home Medications Medication Instructions Recorded Confirmed amlodipine 10 mg tablet 10 mg PO DAILY 12/12/20 10/07/23 amitriptyline 25 mg tablet 1 tab PO BEDTIME 07/14/22 10/07/23 metformin 1,000 mg tablet 1 tab PO BIDWM 07/29/22 10/07/23 albuterol sulfate 2.5 mg/3 mL 2.5 mg inhalation BID PRN 08/08/22 10/07/23 (0.083 %) solution for nebulization Shortness Of Breath Or Wheezing blood sugar diagnostic (FreeStyle 08/08/22 06/04/23 Lite Strips) prednisone 10 mg tablet 10 mg PO TID 02/26/23 10/07/23 insulin glargine-yfgn 100 unit/mL 30 unit subcut BEDTIME PRN BLOOD 10/07/23 10/07/23 subcutaneous solution (Semglee SUGAR >250 (insulin glargine-yfgn)) tirzepatide 12.5 mg/0.5 mL 10 mg subcut QWEEK 10/07/23 subcutaneous pen injector ([place]) Previous Rx's Medication Instructions Recorded nebulizers (AeroEclipse II #1 ea 12/22/20 Nebulizer) nebulizers (Compact Compressor #1 ea 12/31/20 Nebulizer) rosuvastatin 40 mg tablet 40 mg PO BEDTIME 90 days #90 tabs 03/13/21 blood-glucose meter (FreeStyle #1 ea 07/19/21 Lite Meter kit) lancets 28 gauge (FreeStyle #200 ea 07/19/21 Lancets) omalizumab 150 mg subcutaneous 300 mg subcut Q2W 28 days #4 ea 08/12/22 solution (Xolair) ezetimibe 10 mg tablet 10 mg PO DAILY #90 tabs 01/15/23 empagliflozin 25 mg tablet 25 mg PO DAILY #30 tabs 03/12/23 (Jardiance) pen needle, diabetic 32 gauge x #100 ea 03/12/23/16 (Comfort EZ Pen [place]) bisacodyl 5 mg tablet,delayed 20 mg (4 x 5 mg) PO ONCE 06/04/23 release (Dulcolax (bisacodyl)) colonoscopy prep 1 day #4 tabs docusate sodium 100 mg capsule 200 mg (2 x 100 mg) PO BEDTIME #60 06/04/23 (Colace) caps cholecalciferol (vitamin D3) 50 50 mcg PO DAILY #90 caps 07/08/23 mcg (2,000 unit) capsule blood-glucose transmitter (Dexcom #1 ea 08/12/23 G6 Transmitter device) blood-glucose sensor (Dexcom G7 #3 ea 09/15/23 Sensor device) benzonatate 200 mg capsule 200 mg PO TID PRN cough #10 caps 10/04/23 dextromethorphan-guaifenesin 5 10 ml PO Q4-8H PRN cough #237 mL 10/07/23 mg-100 mg/5 mL oral liquid (Robitussin Cough-Chest Congestion DM) prednisone 10 mg tablet 30 mg (3 x 10 mg) PO DAILY #9 tabs 10/07/23 Allergies Allergy/AdvReac Type Severity Reaction Status Date / Time canagliflozin [Invokana] Allergy Unknown rash Verified 10/07/23 05:45 liraglutide Allergy Unknown rash Verified 10/07/23 05:45 animals Allergy Unknown rash Uncoded 09/04/23 13:02 Pt states no known food Allergy Unknown Unknown Uncoded 09/04/23 13:02 allerg Review of Systems Constitutional: Constitutional: Denies body ache(s), Denies chills, Denies fatigue, Denies fever(s) and Reports headache(s) Eyes: Eyes: Denies blurry vision ENT: Reports headache(s) Cardiovascular: Cardiovascular: Denies chest pain and Denies dyspnea Respiratory: Respiratory: Denies cough and Denies dyspnea Gastrointestinal: Gastrointestinal: Denies abdominal pain, Denies nausea and Denies vomiting Musculoskeletal: Musculoskeletal: Denies back pain Neurologic: Reports headache(s) Endocrine: Endocrine: Denies fatigue PMFSH Past Medical History Medical History Eosinophilia Obesity due to excess calories Vitamin D deficiency Diabetic 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 with type 2 diabetes mellitus roasterman (current) use of insulin Diabetes type 2, uncontrolled Ectopic Hyperlipidemia Hypertension Diabetes Asthma Surgical History History of esophagogastroduodenoscopy (EGD) Hx of colonoscopy History of surgical procedure on mouth Hx of ectopic Family History Family History Father Diabetes mellitus Stomach cancer Mother Diabetes mellitus Ovarian cancer Paternal Grandfather Colon cancer Paternal Aunt Liver cancer Paternal Aunt Liver cancer Social History Social History Household Members: Family Housing: House Do you presently have visiting nurse or other home services: No Alcohol intake: never Patient Tobacco Use Status: Never used Tobacco Smoked in Last 30 Days: No Use of substances other than those prescribed or required for medical reasons: No Advance Directives: Yes Advance Directives on File: Yes Advance Directives Date on File: 07/15/22 Patient : No service: No Current occupational status: employed Physical Exam ED Vital Signs: Vital Signs - 24 hr 01/02/24 21:07 01/02/24 22:11 01/03/24 00:44 Temperature 97.5 F 98.2 F 97.9 F Pulse Rate 88 84 85 Respiratory Rate 16 14 14 Blood Pressure 153/108 H 144/93 H 138/72 Pulse Oximetry 97 96 98 Oxygen Delivery Method Room Air Room Air Room Air BMI result Body Mass Index 37.4 Const General: healthy appearing, comfortable, no acute distress, alert and awake Nutritional Appearance: well nourished Orientation/consciousness: patient oriented x3 HENMT Head: Yes normocephalic and Yes atraumatic Eyes Eyelids: Yes eyelids normal Conjunctivae: conjunctivae normal Sclerae: sclerae normal Corneas: corneas normal Pupils: Equal, round and reactive pupils present EOM: EOMs intact bilaterally Neck Neck: Yes full ROM Resp Effort & Inspection: normal respiratory effort, able to speak in complete sentences and not labored GI Inspection: No distended Palpation (GI): Soft to palpation, not firm, nontender, no guarding and not rigid Skin General skin exam: elasticity normal Neuro General: patient oriented x3 Cranial nerves: Yes CN's II-XII intact bilaterally, Yes Equal, round and reactive pupils present and Yes Bilaterally intact EOM present Cognition (Neuro): normal cognition Extrem Other: Moving all extremities well without any obvious deformities Medications Administered Discontinued Medications Generic Name Dose Route Start Last Admin Trade Name Malcolm PRN Reason Stop Dose Admin Acetaminophen/Butalbital/Caffeine 1 tab 01/02/24 23:20 01/02/24 23:38 Butalb/Acetamin/Caff 50/325/40 Tablet PO 01/02/24 23:21 1 tab ONCE ONE Administration Ketorolac Tromethamine 30 mg 01/02/24 23:20 01/02/24 23:38 Ketorolac Tromethamine 30 Mg/Ml Vial IM 01/02/24 23:21 30 mg ONCE ONE Administration Ondansetron HCl 4 mg 01/02/24 21:03 01/02/24 21:06 Ondansetron Odt 4 Mg Tab.Rapdis TRANSLINGU 01/02/24 21:04 4 mg ONCE ONE Administration Medical Decision Making Medical Decision Making [facility] Narrative: 48-year-old female reports a history of syncopal episodes presents for evaluation of headache and syncopal episodes. This sounds like her baseline migraine headaches with syncopal episodes. She has no neuro deficits, no head strike. We will work her up for syncope to rule out any other pathologic cause. Plan for EKG, labs. I do not see any indication to get emergent imaging of the brain at this time as her headache appears consistent with previous ones. Differential Diagnosis Differential Diagnoses: The differential diagnosis associated with the presentation includes Acute headache Tension headache Cluster headache Vasovagal syncope Orthostasis Lab Data [facility] Lab Attestation statement: I reviewed the patient's lab results. No leukocytosis or anemia. Normal platelet count. 01/02/24 23:13 01/02/24 23:13 Labs: Lab Results 01/02/24 01/02/24 Range/Units 23:13 23:31 WBC 9.3 (4.8-10.8) X10*3/uL RBC 5.17 (4.20-5.50) X10*6/uL Hgb 14.1 (12.0-16.0) g/dl Hct 41.6 (37.0-47.0) % MCV 80.5 (80.0-98.0) fL MCH 27.3 (27.0-33.0) pg MCHC 33.9 (31.0-35.0) g/dl RDW 13.2 (11.0-16.0) % Plt Count 271 (160-400) X10*3/uL MPV 9.9 (9.4-12.3) fL Immature Gran % (Auto) 0.3 (0.0-0.4) % Neut % (Auto) 71.2 (45-73) % Lymph % (Auto) 23.2 (20-40) % [place] % (Auto) 4.6 (2-11) % Eos % (Auto) 0.4 (0-4) % Baso % (Auto) 0.3 (0-2) % Lymph # (Auto) 2.2 (1.2-4.9) X10*3/uL [place] # (Auto) 0.4 (0.1-1.2) X10*3/uL Eos # (Auto) 0.0 (0.0-0.4) X10*3/uL Baso # (Auto) 0.0 (0.0-0.2) X10*3/uL Abs Immat Gran (auto) 0.03 (0.00-0.03) X10*3/uL Absolute Neuts (auto) 6.6 (2.0-8.3) x10*3/uL Absolute Nucleated RBC 0.000 (0.0-0.012) X10*3/uL Nucleated RBC % (auto) 0.0 (0.0-0.2) /100WBC Sodium 139 (135-145) mmol/L Potassium 3.8 (3.3-5.1) mmol/L Chloride 105 (96-108) mmol/L Carbon Dioxide 25 (22-29) mmol/L Anion Gap 13 (12-20) BUN 6 L (9-16) mg/dL Creatinine 0.59 (0.5-1.4) mg/dL Estim Creat Clear Calc 139.7 Estimated GFR > 60 Random Glucose 209 H (60-115) mg/dL Calcium 9.3 (8.4-10.2) mg/dL Total Bilirubin 1.1 H (0.0-1.0) mg/dL AST 17 (5-31) U/L ALT 26 (0-31) U/L Alkaline Phosphatase 81 (39-117) U/L Total Protein 6.8 (6.5-8.0) g/dL Albumin 3.9 (3.5-5.0) g/dL COVID-19 ([place]) Negative (Negative) COVID-19 Clin Com See Note Influenza Type A (AL) Negative (Negative) Influenza Type B (AL) Negative (Negative) Influenza A & B Note See Note Discharge Plan Discharge Clinical Impression: Headache, Syncope Patient Disposition: Home, Self-Care Instructions: Acute Headache (ED) Additional Instructions: Your workup in the ER today was reassuring. You may restart your home medications exactly as prescribed. Follow-up with your primary doctor Prescriptions: No Action Xolair 150 mg recon soln 300 mg subcut Q2W 28 Days Qty: 4 12RF Rx Instructions: requires multiple injection sites; do not exceed 150 mg per injection site ezetimibe 10 mg tablet 10 mg PO DAILY Qty: 90 4RF cholecalciferol (vitamin D3) 50 mcg (2,000 unit) capsule 50 mcg PO DAILY Qty: 90 1RF (DME) Dexcom G6 Transmitter Device See Rx Instructions .ROUTE .COMPLEX Qty: 1 0RF Dose Instruction: DIRECTED Rx Instructions: DIRECTED (DME) nebulizers [AeroEclipse II Nebulizer] [facility] [place] See Rx Instructions .ROUTE .MEDSUPPLY Qty: 1 0RF Rx Instructions: As directed (DME) nebulizers [Compact Compressor Nebulizer] [facility] [place] See Rx Instructions .ROUTE .MEDSUPPLY Qty: 1 0RF Rx Instructions: As directed amitriptyline 25 mg tablet 1 tab PO BEDTIME metformin 1,000 mg tablet 1 tab PO BIDWM insulin glargine-yfgn [Semglee(insulin glargine-yfgn)] 100 unit/mL solution 30 unit subcut BEDTIME PRN (Reason: BLOOD SUGAR >250) Mounjaro 12.5 mg/0.5 mL pen injector 10 mg subcut QWEEK prednisone 10 mg tablet 30 mg PO DAILY Qty: 9 0RF Rx Instructions: see taper instructions Robitussin Cough-Chest [place] DM 5-100 mg/5 mL liquid 10 ml PO Q4-8H PRN (Reason: cough) Qty: 237 0RF prednisone 10 mg tablet 10 mg PO TID benzonatate 200 mg capsule 200 mg PO TID PRN (Reason: cough) Qty: 10 0RF (DME) blood-glucose meter [FreeStyle Lite Meter] Kit See Rx Instructions .ROUTE .MEDSUPPLY Qty: 1 0RF Rx Instructions: As directed (DME) lancets [FreeStyle Lancets] 28 gauge misc See Rx Instructions .ROUTE .MEDSUPPLY Qty: 200 1RF Rx Instructions: 5x/day amlodipine 10 mg tablet 10 mg PO DAILY rosuvastatin 40 mg tablet 40 mg PO BEDTIME 90 Days Qty: 90 2RF (DME) FreeStyle Lite Strips Strip See Rx Instructions .Route Rx Instructions: As directed albuterol sulfate 2.5 mg /3 mL (0.083 %) solution for nebulization 2.5 mg inhalation BID PRN (Reason: Shortness Of Breath Or Wheezing) Jardiance 25 mg tablet 25 mg PO DAILY Qty: 30 5RF (DME) pen needle, diabetic [Comfort EZ Pen [place]] 32 gauge x 5/16 needle See Rx Instructions .Route Qty: 100 6RF Rx Instructions: As directed injects 4X/day bisacodyl [Dulcolax (bisacodyl)] 5 mg tablet,delayed release (DR/EC) 20 mg PO ONCE 1 Days Qty: 4 0RF Rx Instructions: Take 4 tablets by mouth at 12:00pm the day before your procedure. docusate sodium [Colace] 100 mg capsule 200 mg PO BEDTIME Qty: 60 5RF (DME) Dexcom G7 Sensor Device See Rx Instructions .Route Qty: 3 5RF Rx Instructions: As directed change every 10 days
[2024-01-02] MEDS: Butalb/Acetamin/Caff 50/325/40 TABLET 1 TAB PO (23:38)
[2024-01-02] MEDS: Ketorolac Tromethamine 30 MG/ML VIAL IM (23:38)
[2024-01-02 23:52] LABS: COVID-19 Test Negative (Negative); IDNOW Serial# 08D9AD1C
[2024-01-02 23:54] LABS: Alanine Aminotransferase 26 U/L (0-31); Albumin Level 3.9 g/dL (3.5-5.0); Alkaline Phosphatase 81 U/L (39-117); Anion Gap 13 (12-20); Aspartate Amino Transferase 17 U/L (5-31); Bilirubin Total 1.1 mg/dL (0.0-1.0); Blood Urea Nitrogen 6 mg/dL (9-16); Calcium 9.3 mg/dL (8.4-10.2); Carbon Dioxide 25 mmol/L (22-29); Chloride 105 mmol/L (96-108); Creatinine Clr Calc Pharmacy 139.7; Estimated Glomerular Filt Rate > 60; Glucose Random 209 mg/dL (60-115); Potassium 3.8 mmol/L (3.3-5.1); Sodium 139 mmol/L (135-145); Total Protein 6.8 g/dL (6.5-8.0)
[2024-01-02 23:55] LABS: IDNOW Serial# 152EDE1D; Influenza A Negative (Negative); Influenza B2 Negative (Negative)
[2024-01-03 00:44] VITALS: BP 138/72; PULSE 85; RESP 14; TEMP 36.6; O2SAT 98
[2024-01-03 02:41] VITALS: BP 149/86; PULSE 84; RESP 14; TEMP 36.7; O2SAT 98
== END 2024-01-03 02:43 | disposition home or self-care (01) ==
PROVIDERS: Physician Assistant; Emergency Provider Student in an Organized Health Care Education/Training Program; PCP Internal Medicine
DX: R51.9 Headache, unspecified (principal); R55 Syncope and collapse; Z11.52 Encounter for screening for COVID-19; E11.9 Type 2 diabetes mellitus without complications; I10 Essential (primary) hypertension; Z79.4 Long term (current) use of insulin; E78.5 Hyperlipidemia, unspecified; Z79.899 Other long term (current) drug therapy; Z79.84 Long term (current) use of oral hypoglycemic drugs; Z79.02 Long term (current) use of antithrombotics/antiplatelets; Z79.85 Long-term (current) use of injectable non-insulin antidiabetic drugs
CPT/HCPCS: 36415; 80053; 85025; 87502; 87635; 93005; 96372; 99284; 99285; J1885

== ENCOUNTER → 2024-01-02 23:09 | Outpatient (BNV) | payer OTHER, SELFPAY | PROVIDERS: Emergency Provider Student in an Organized Health Care Education/Training Program; PCP Internal Medicine; Visit Provider Internal Medicine Cardiovascular Disease | DX: R55 Syncope and collapse (principal); R51.9 Headache, unspecified | CPT/HCPCS: 93010 ==

== ENCOUNTER 2024-01-08 08:57 | Outpatient (REF) | payer OTHER, SELFPAY | END 2024-01-08 08:58 | disposition home or self-care (01) | LOC: HO.MDS 08:57 | PROVIDERS: Visit Provider Internal Medicine Pulmonary Disease | DX: J45.50 Severe persistent asthma, uncomplicated (principal) | CPT/HCPCS: 96372; J2357 ==

== ENCOUNTER 2024-01-11 09:01 | Outpatient (REF) | payer OTHER, SELFPAY ==
[2024-01-11 10:48] LABS: Estimated Average Glucose 160 mg/dL; Hemoglobin A1c % 7.2 % (<6.0)
== END 2024-01-11 09:02 | disposition home or self-care (01) ==
LOC: HO.LAB 09:01
PROVIDERS: PCP Internal Medicine; Visit Provider Internal Medicine Endocrinology, Diabetes & Metabolism
DX: R73.9 Hyperglycemia, unspecified (principal); E55.9 Vitamin D deficiency, unspecified
CPT/HCPCS: 36415; 82306; 83036

== ENCOUNTER 2024-01-12 08:16 | Outpatient (AMB) | payer OTHER, SELFPAY ==
--- NOTE | 2024-01-12 08:18 | A.OFFVIS_ITS ---
Intake Vital Signs 01/12/24 08:19 Height 5 ft 6 in Weight 231 lb 0.711 oz BMI 37.3 BP 120/82 Blood Pressure Location Lt brachial Position Sitting Pulse 92 Pulse Source Pulse Oximeter Intake Visit Reasons: DM Intake Note: Patient present today to follow up on Type 2 Diabetes Mellitus. Last Diabetic Eye exam: 2022 Last Podiatry Visit: Doesn't have one. Random Glucose:156 mg/dl HgA1C: 7.2% 01/11/2024 Staffing Director Required: No Accompanied by: Self / Same As Patient Allergies canagliflozin [Invokana] Allergy (Unknown, Verified 01/12/24 08:25) rash liraglutide Allergy (Unknown, Verified 01/12/24 08:25) rash animals Allergy (Unknown, Uncoded 01/12/24 08:25) rash Pt states no known food allerg Allergy (Unknown, Uncoded 01/12/24 08:25) Unknown HPI HPI Comments History of Present Illness Details Patient is 48-year-old female with DM type 2 diagnosed in 2010 who presents for management of diabetes. . Past medical history: Diabetes type 2 hypertension, hyperlipidemia, obesity. Micro and macrovascular complications: Neuropathy Diabetes medications: jardiance 25 mg (intolerant of higher dose), , Mounjaro 12.5 mg Qwkly and now taking metformin 1000 mg QD . Lantus 30 units . : Humalog at ?Humalog 8 units for small meal, 10 units for large meal plus 2 units for blood glucose over 200+ 4 units for blood glucose over 250 and plus 6 units for blood glucose over 300. She has not been taking her insulin I have Lantus or Humalog recently. Not taking Humalog insulin Symptoms reported: denies numbness, tingling, cramping in lower extremities Hypoglycemia: denies -very rare Hyperglycemia: + urinary frequency, + nocturia, +polydypsia Dexcom download shows she is using the Dexcom 93% of the time. average glucose is 124 with standard deviation .32 91% range with 6% high in 1% very high and 2% hypoglycemia. Basal rate(s) (units/hour) : not using pump . She left the pump in [place]. 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 pharmaceutical optho : needs to make appt Laboratory Tests 05/14/21 05/14/2106/29/21 Unknown Unknown 16:12 Creatinine 0.79 Estimated GFR > 60 Hemoglobin A1c % 10.4 Triglycerides 94 Cholesterol 154 LDL Cholesterol, C alc 84 HDL Cholesterol 52 Microalb/Creat Rat io 11/26/21 11/26/21 11/26/21 09:46 09:46 09:46 Creatinine 0.61 Estimated GFR > 60 Hemoglobin A1c % 10.4 10.3 Triglycerides Cholesterol LDL Cholesterol, C alc HDL Cholesterol Microalb/Creat Rat io 11/26/21 11:15 Creatinine Estimated GFR Hemoglobin A1c % Triglycerides Cholesterol LDL Cholesterol, C alc HDL Cholesterol Microalb/Creat Rat io 41.8 [facility] Medical History Eosinophilia Obesity due to excess calories Vitamin D deficiency Diabetic 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 with type 2 diabetes mellitus group home (current) use of insulin Diabetes type 2, uncontrolled Ectopic Hyperlipidemia Hypertension Diabetes Asthma Surgical History History of esophagogastroduodenoscopy (EGD) Hx of colonoscopy History of surgical procedure on mouth Hx of ectopic Family History Father Diabetes mellitus Stomach cancer Mother Diabetes mellitus Ovarian cancer Paternal Grandfather Colon cancer Paternal Aunt Liver cancer Paternal Aunt Liver cancer Social History Household Members: Family Housing: House Do you presently have visiting nurse or other home services: No Alcohol intake: never Patient Tobacco Use Status: Never used Tobacco Advance Directives Date on File: 07/15/22 service: No Current occupational status: employed Physical Exam Absence of Cushingoid features. Absence of acromegalic features. Neck exam reveals nl size thyroid about 15 gms. No thyroid nodules palpable. No carotid bruits present. Lungs CTA. Heart S1 S2, Reg R/R. No M/R/ G. Skin exam reveals absence of vitiligo or acanthosis nigricans. Abdominal exam reveals Soft NT/ND with NA BS. No organomegaly present. Neck Other: . Extrem Other: Visual exam of foot performed. No ulcerations or open lesions. No onchomycosis, no callouses.Pulses 2 + distally Sensation intact to monofilament exam. Vibratory sensation sensed is decreased with 128 Hz tuning fork Assessment & Plan Assessment & Plan (1) Diabetes type 2, uncontrolled: Code(s): E11.65 - Type 2 diabetes mellitus with hyperglycemia Qualifiers: Glycemic state: with hyperglycemia Qualified Code(s): E11.65 - Type 2 diabetes mellitus with hyperglycemia Plan: This is a 48-year-old female with a history of type 2 diabetes exacerbated by high-dose steroids being treated with metformin Mounjaro , Jardiance and basal-bolus insulin (previously on insulin pump) with excellent glycemic control while on basal insulin and no known microvascular or macrovascular complication. Plan is to continue the current regimen. At this point, patient returned to the care of her primary care provider and returned back to endocrinology should her HbA1c deteriorate (2) Vitamin D deficiency: Code(s): E55.9 - Vitamin D deficiency, unspecified Plan: Remains low on 2000 units once a day . Will prescribe 48905 IU of ergocalciferol once a week for 12 weeks on top of the cholecalciferol. Primary care provider can recheck 25 hydroxy vitamin-D in about 12 weeks time. Goal for 25 hydroxy vitamin-D should be>30. If 25 hydroxy vitamin-D <30 , assuming patient compliance, can increase cholecalciferol by 1000 IU per day. (for every 1000 IU, 25 hydroxy vitamin-D should rise by about 10) Medications: New ergocalciferol (vitamin D2) 1,250 mcg PO QWEEK 5 caps 3RF Changed From tirzepatide (Mounjaro) 10 mg subcut QWEEK To tirzepatide (Mounjaro) 12.5 mg (0.5 mL) subcut QWEEK 2 mL 3RF Refilled blood-glucose sensor (Dexcom G7 Sensor device) As directed change every 10 days 3 ea 5RF Coding Level of Care Code Est Pt Level 3 (89796) Diagnoses Uncontrolled type 2 diabetes mellitus with hyperglycemia E11.65 Glycemic state: with hyperglycemia Vitamin D deficiency E55.9
[2024-01-12 08:19] VITALS: BP 120/82; PULSE 92; BMI 37.3
[2024-01-12 08:33] LABS: Glucose, Whole Blood 156 mg/dL (60-115)
== END 2024-01-12 08:41 | disposition home or self-care (01) ==
PROVIDERS: PCP Internal Medicine; Visit Provider Internal Medicine Endocrinology, Diabetes & Metabolism
DX: E11.65 Type 2 diabetes mellitus with hyperglycemia (principal); E55.9 Vitamin D deficiency, unspecified
CPT/HCPCS: 99214

== ENCOUNTER → 2024-01-12 08:16 | Outpatient (BNVA) | payer OTHER, SELFPAY | PROVIDERS: PCP Internal Medicine; Visit Provider Internal Medicine Endocrinology, Diabetes & Metabolism | DX: E11.65 Type 2 diabetes mellitus with hyperglycemia (principal); E55.9 Vitamin D deficiency, unspecified; Z79.4 Long term (current) use of insulin | CPT/HCPCS: 82947 ==

== ENCOUNTER 2024-01-22 09:03 | Outpatient (REF) | payer OTHER, SELFPAY ==
[2024-01-22 09:04] VITALS: BP 139/87; PULSE 87; RESP 17; TEMP 36.4; O2SAT 97
[2024-01-22] MEDS: Omalizumab 150 MG/ML SYRINGE 300 MG SUBCUT (09:11)
--- NOTE | 2024-01-22 09:15 | PC.NURSE ---
pt unable to wait discharge time. educated on s/s of adverse/allergic reaction and encouraged to seek emergency care if sx arise. pt verbalizes understanding. ambulated out of mds with poole steady gait
== END 2024-01-22 09:04 | disposition home or self-care (01) ==
LOC: HO.MDS 09:03
PROVIDERS: Visit Provider Internal Medicine Pulmonary Disease
DX: J45.50 Severe persistent asthma, uncomplicated (principal)
CPT/HCPCS: 96372; J2357

== ENCOUNTER 2024-01-29 15:04 | Outpatient (AMB) | payer OTHER, SELFPAY ==
--- NOTE | 2024-01-29 15:08 | MHC.OFFVIS ---
Intake Vital Signs 01/29/24 15:11 Height 5 ft 6 in Weight 226 lb BMI 36.5 BP 137/87 Blood Pressure Location Rt brachial Position Sitting Pulse 94 Pulse Source Doppler Pulse Oximetry (%) 97 Oxygen Delivery Method Room Air Intake Visit Reasons: Asthma Allergies canagliflozin [Invokana] Allergy (Unknown, Verified 01/29/24 15:16) rash liraglutide Allergy (Unknown, Verified 01/29/24 15:16) rash animals Allergy (Unknown, Uncoded 01/12/24 08:25) rash Pt states no known food allerg Allergy (Unknown, Uncoded 01/12/24 08:25) Unknown HPI Asthma HPI Details 48-year-old lady, nonsmoker, followed for underlying moderate to severe persistent asthma significant allergic component.? She has been using Xolair, Trelegy, and albuterol MDI with excellent control of his symptoms.? She denies any recent exacerbations. [facility] Medical History Eosinophilia Obesity due to excess calories Vitamin D deficiency Diabetic 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 with type 2 diabetes mellitus prison (current) use of insulin Diabetes type 2, uncontrolled Ectopic Hyperlipidemia Hypertension Diabetes Asthma Surgical History History of esophagogastroduodenoscopy (EGD) Hx of colonoscopy History of surgical procedure on mouth Hx of ectopic Family History Father Diabetes mellitus Stomach cancer Mother Diabetes mellitus Ovarian cancer Paternal Grandfather Colon cancer Paternal Aunt Liver cancer Paternal Aunt Liver cancer Social History Household Members: Family Housing: House Do you presently have visiting nurse or other home services: No Alcohol intake: never Patient Tobacco Use Status: Never used Tobacco Advance Directives Date on File: 07/15/22 service: No Current occupational status: employed Review of Systems Const Denies daytime sleepiness, Denies excessive sweating, Denies fatigue, Denies fever(s), Denies lethargy, Denies malaise, Denies night sweats, Denies snoring and Denies weight loss Eyes Denies blurry vision and Denies itchy eyes ENT Denies nasal congestion, Denies post nasal drip, Denies sinus pain, Denies sinus pressure and Denies other ( Thrush) Card Denies chest pain, Denies pedal edema, Denies dyspnea, Denies orthopnea and Denies paroxysmal nocturnal dyspnea Resp Denies cough, Denies hemoptysis, Denies excessive phlegm production, Denies dyspnea, Denies snoring and Denies wheezing GI Denies abdominal pain and Denies heartburn Musc Denies myalgias, Denies arthralgias and Denies joint swelling Skin/Breast Denies rash Neuro Denies memory loss and Denies seizure-like activity Psych Denies abnormal sleep pattern, Denies anxiety and Denies memory loss Endo Denies excessive sweating, Denies fatigue and Denies heat intolerance Jeffrey/Lymph Denies easy bruising Aller/Immun Denies itchy eyes, Denies seasonal rhinorrhea and Denies wheezing Physical Exam Vital Signs: Last Vital Signs Pulse 94 01/29/24 15:11 BP 137/87 01/29/24 15:11 Pulse Ox 97 01/29/24 15:11 Oxygen Delivery Method Room Air 01/29/24 15:11 BMI result Body Mass Index 36.5 Const General: no acute distress and alert Nutritional Appearance: obese Orientation/consciousness: Other orientation findings ( oriented) HEENT Head: Yes atraumatic Eyes General: appearance normal, both eyes and all related structures Sclerae: sclerae normal EOM: EOMs intact bilaterally Neck Neck: Yes supple Lymphatic: no lymphadenopathy noted Resp Effort & Inspection: normal respiratory effort and no use of accessory muscles Auscultation: clear to auscultation bilaterally Cardio Rate: regular rate Rhythm: regular rhythm Heart sounds: no gallops, no murmurs and no rubs Skin General skin exam: other ( warm) Extrem General: No clubbing, No cyanosis and No edema Assessment & Plan Assessment & Plan (1) Asthma: Code(s): J45.909 - Unspecified asthma, uncomplicated Plan: Well controlled on Trelegy, Xolair, albuterol MDI/nebs. Continue current regimen. (2) Environmental allergies: Code(s): Z91.09 - Other allergy status, other than to drugs and biological substances Plan: Well controlled on Xolair. Continue current regimen. Coding Level of Care Code Est Pt Level 4 (09250) Diagnoses Severe persistent asthma with acute exacerbation J45.909 Environmental allergies Z91.09
[2024-01-29 15:11] VITALS: BP 137/87; PULSE 94; O2SAT 97; BMI 36.5
== END 2024-01-29 15:23 | disposition home or self-care (01) ==
PROVIDERS: PCP Internal Medicine; Visit Provider Internal Medicine Pulmonary Disease
DX: J45.909 Unspecified asthma, uncomplicated (principal); Z91.09 Other allergy status, other than to drugs and biological substances
CPT/HCPCS: 99214

== ENCOUNTER → 2024-01-29 15:04 | Outpatient (BNVA) | payer OTHER, SELFPAY | PROVIDERS: PCP Internal Medicine; Visit Provider Internal Medicine Pulmonary Disease ==

== ENCOUNTER 2024-02-04 12:44 | Outpatient (REF) | payer OTHER, SELFPAY ==
--- NOTE | ~2024-02-04 | MM_ITS ---
EXAMINATION: MM DIAGNOSTIC DIGITAL BREAST TOMOSYNTHESIS, LEFT US BREAST LIMITED, LEFT MAMMOGRAPHY: CLINICAL INFORMATION: Evaluate focal asymmetry upper outer left breast, mid to anterior one third. COMPARISON: Mammography: 12/18/2023, -, 06/06/2019, 11/17/2018, 10/29/2018, 10/02/2017. TECHNIQUE: Digital breast tomosynthesis is performed in the following views: Full-field 3-D left mediolateral view, as well as 3-D spot compression left MLO and cc views. This was followed by targeted breast ultrasound. FINDINGS: There are scattered areas of fibroglandular density (ACR BI-RADS breast composition Category b). There is a persistent focal asymmetry in the 1-2 o'clock axis left breast mid to anterior one third, which has a oval shape, however contains what appears to be regions of fat and most likely this represents a benign island of normal breast parenchyma. It effaces to near completion on the left full-field mediolateral view. We will evaluate this abnormality with ultrasound. Otherwise, no additional abnormalities left breast. ULTRASOUND: CLINICAL INFORMATION: Evaluate focal asymmetry upper outer left breast, mid to anterior one third. COMPARISON: None relevant TECHNIQUE: Targeted sonographic evaluation was performed using a high frequency linear transducer. Attention was given to the upper outer quadrant of the left breast to include the abnormality. Selected archived documentation. FINDINGS: LEFT BREAST: There is a mixture of fatty and fibroglandular tissue. No suspicious mass is seen. There is no pathologic acoustic shadowing. There is no cystic abnormality. There is no correlate to the region of asymmetry in the upper outer left breast. MM/MM tomosynthesis added views L IMPRESSION: There are no findings suspicious for malignancy in the left breast. Focal asymmetry upper outer quadrant left breast is consistent with superimposition artifact/overlap of normal breast tissue. No further follow-up recommended. Recommend the patient return to routine annual screening to include both breasts. OVERALL ASSESSMENT: Mammography: BI-RADS 1 - Negative Ultrasound: BI-RADS 1 - Negative RECOMMENDATION: 1 year F/U This patient's information was entered into a reminder system with a target due date for their next mammogram.
== END 2024-02-04 12:45 | disposition home or self-care (01) ==
LOC: HO.MAMMO 12:44
PROVIDERS: PCP Internal Medicine; Visit Provider Internal Medicine
DX: N64.89 Other specified disorders of breast (principal)
CPT/HCPCS: 76642; 77061; 77065

== ENCOUNTER → 2024-02-04 13:00 | Outpatient (BNV) | payer OTHER, SELFPAY | PROVIDERS: PCP Internal Medicine; Visit Provider Radiology Diagnostic Radiology | DX: R92.8 Other abnormal and inconclusive findings on diagnostic imaging of breast (principal) | CPT/HCPCS: 76642; 77061; 77065 ==

== ENCOUNTER 2024-02-05 09:36 | Outpatient (REF) | payer OTHER, SELFPAY ==
[2024-02-05 09:39] VITALS: BP 121/80; PULSE 85; RESP 16; TEMP 36.1; O2SAT 97
[2024-02-05] MEDS: Omalizumab 150 MG/ML SYRINGE 300 MG SUBCUT (09:44)
== END 2024-02-05 09:37 | disposition home or self-care (01) ==
LOC: HO.MDS 09:36
PROVIDERS: Visit Provider Internal Medicine Pulmonary Disease
DX: J45.50 Severe persistent asthma, uncomplicated (principal)
CPT/HCPCS: 96372; J2357

== ENCOUNTER 2024-02-21 19:38 | Emergency (ER) | payer OTHER, SELFPAY ==
--- NOTE | ~2024-02-21 | XR_ITS ---
EXAMINATION: XR CHEST CLINICAL INFORMATION: Shortness of breath COMPARISON: 10/06/23 TECHNIQUE: Frontal portable view of the chest was obtained. FINDINGS: Devices overlie the patient. Lordotic projection. The cardiac size is within normal limits. No mediastinal or hilar mass. No focal pneumonia or major zone of atelectasis. No significant pleural fluid or pneumothorax. Density superimposes over the right hemidiaphragm and may overlie the patient. XR/XR chest 1V IMPRESSION: No pneumonia or edema.
[2024-02-21 19:42] VITALS: BP 120/85; PULSE 94; RESP 22; TEMP 37.1; O2SAT 95; BMI 35.1
--- NOTE | 2024-02-21 19:55 | PC.NURSE ---
Pt placed on 2L NC in triage, Provider made aware to come assess patient for [facility] protocol. Dr. Olson at bedside. Pt placed on monitor
--- NOTE | 2024-02-21 19:56 | ED_ITS ---
HPI - SOB/Dyspnea General Chief Complaint: Dyspnea Stated Complaint: sob Time Seen by Provider: 02/21/24 19:47 Source: patient Mode of arrival: ambulatory Limitations: no limitations History of Present Illness HPI Narrative: Patient comes to the emergency room complaining of asthma exacerbation for 1 day. Patient gets Solaris injections. Patient did not use her inhaler or neb machine prior to coming to the emergency room. Patient complaining of wheezing. It was reported by the triage nurse that the patient passed out during triage. Seems that she was out for couple of seconds. Patient states that this happens to her frequently, states that she has been worked up in the past for this syncopal episodes with no clear answer. Patient denies chest pain or palpitations. No calf pain either. Related Data Home Medications ?Medication ?Instructions ?Recorded ?Confirmed amlodipine 10 mg tablet 10 mg PO DAILY 12/12/20 10/07/23 amitriptyline 25 mg tablet 1 tab PO BEDTIME 07/14/22 10/07/23 metformin 1,000 mg tablet 1 tab PO BIDWM 07/29/22 10/07/23 albuterol sulfate 2.5 mg/3 mL 2.5 mg inhalation BID PRN 08/08/22 10/07/23 (0.083 %) solution for nebulization Shortness Of Breath Or Wheezing blood sugar diagnostic (FreeStyle 08/08/22 06/04/23 Lite Strips) insulin glargine-yfgn 100 unit/mL 30 unit subcut BEDTIME PRN BLOOD 10/07/23 10/07/23 subcutaneous solution (Semglee SUGAR >250 (insulin glargine-yfgn)) Previous Rx's ?Medication ?Instructions ?Recorded nebulizers (AeroEclipse II #1 ea 12/22/20 Nebulizer) nebulizers (Compact Compressor #1 ea 12/31/20 Nebulizer) rosuvastatin 40 mg tablet 40 mg PO BEDTIME 90 days #90 tabs 03/13/21 blood-glucose meter (FreeStyle #1 ea 07/19/21 Lite Meter kit) lancets 28 gauge (FreeStyle #200 ea 07/19/21 Lancets) omalizumab 150 mg subcutaneous 300 mg subcut Q2W 28 days #4 ea 08/12/22 solution (Xolair) ezetimibe 10 mg tablet 10 mg PO DAILY #90 tabs 01/15/23 empagliflozin 25 mg tablet 25 mg PO DAILY #30 tabs 03/12/23 (Jardiance) pen needle, diabetic 32 gauge x #100 ea 03/12/23 5/ (Comfort EZ Pen [place]) bisacodyl 5 mg tablet,delayed 20 mg (4 x 5 mg) PO ONCE 06/04/23 release (Dulcolax (bisacodyl)) colonoscopy prep 1 day #4 tabs docusate sodium 100 mg capsule 200 mg (2 x 100 mg) PO BEDTIME #60 06/04/23 (Colace) caps cholecalciferol (vitamin D3) 50 50 mcg PO DAILY #90 caps 07/08/23 mcg (2,000 unit) capsule blood-glucose transmitter (Dexcom #1 ea 08/12/23 G6 Transmitter device) benzonatate 200 mg capsule 200 mg PO TID PRN cough #10 caps 10/04/23 ergocalciferol (vitamin D2) 1,250 1,250 mcg PO QWEEK #5 caps 01/12/24 mcg (50,000 unit) capsule tirzepatide 12.5 mg/0.5 mL 12.5 mg (0.5 mL) subcut QWEEK #2 mL 01/12/24 subcutaneous pen injector (Mounjaro) blood-glucose sensor (Dexcom G7 #3 ea 02/04/24 Sensor device) albuterol sulfate 90 mcg/actuation 2 puff inhalation Q4-6H PRN 02/22/24 aerosol inhaler shortness of breath or wheezing #8.5 grams prednisone 10 mg tablet 10 mg PO DAILY #4 tabs 02/22/24 Allergies Allergy/AdvReac Type Severity Reaction Status Date / Time canagliflozin [Invokana] Allergy Unknown rash Verified 02/21/24 19:47 liraglutide Allergy Unknown rash Verified 02/21/24 19:47 animals Allergy Unknown rash Uncoded 01/12/24 08:25 Pt states no known food Allergy Unknown Unknown Uncoded 01/12/24 08:25 allerg Review of Systems 2 Review of Systems: Constitutional : No Weight loss, No Fever, No Chills, No Night Sweats, No Fatigue, No Malaise ENT/Mouth : No Hearing loss, No Ear Pain, No Nasal Congestion, No Sinus Pain, No Hoarseness, No sore throat, No Rhinorrhea, No Swallowing Difficulty Eyes: No Eye Pain, No Swelling, No Redness, No Foreign Body, No Discharge, No Vision Changes Cardiovascular : No Chest Pain, No SOB, No Dyspnea on Exertion, No Orthopnea, No Edema, No Palpitations Respiratory : No Cough, No Sputum, complaining of wheezing for 1 day, No Smoke Exposure, No Dyspnea Gastrointestinal : No Nausea, No Vomiting, No Diarrhea, No Constipation, No abdominal Pain, No Hematochezia, No Melena Genitourinary : no irregular bleeding, No Dysuria, No Urinary Frequency, No Hematuria, No Urinary Incontinence, No Urgency, No Flank Pain, No Urinary Flow Changes, No Hesitancy Musculoskeletal : No joint pain, No Myalgias, No Joint Swelling Skin : No Skin Lesions, No rash Neuro : No Weakness, No Numbness, No Paresthesias, No Loss of Consciousness, No Dizziness, No Headache Psych : No Anxiety/Panic, No Depression, No SI/HI/AH/VH, No Social Issues, Heme/Lymph: No Bruising, No Bleeding,No Lymphadenopathy Endocrine : No Polyuria, No Polydipsia, No Temperature Intolerance [facility] Past Medical History Medical History Eosinophilia Obesity due to excess calories Vitamin D deficiency Diabetic 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 with type 2 diabetes mellitus 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 Diabetes type 2, uncontrolled Ectopic Hyperlipidemia Hypertension Diabetes Asthma Surgical History History of esophagogastroduodenoscopy (EGD) Hx of colonoscopy History of surgical procedure on mouth Hx of ectopic Family History Family History Father Diabetes mellitus Stomach cancer Mother Diabetes mellitus Ovarian cancer Paternal Grandfather Colon cancer Paternal Aunt Liver cancer Paternal Aunt Liver cancer Social History Social History Household Members: Family Housing: House Do you presently have visiting nurse or other home services: No Alcohol intake: never Patient Tobacco Use Status: Never used Tobacco Smoked in Last 30 Days: No Use of substances other than those prescribed or required for medical reasons: No Advance Directives: Yes Advance Directives on File: Yes Advance Directives Date on File: 07/15/22 Patient : No service: No Current occupational status: employed Physical Exam 2 Vital Signs: Vital Signs: Last Vital Signs Temp 98.8 F 02/21/24 19:42 Pulse 94 02/21/24 20:14 Resp 24 H 02/21/24 20:14 BP 120/85 02/21/24 19:42 Pulse Ox 95 02/21/24 19:42 O2 Del Method Room Air 02/21/24 19:42 BMI result Body Mass Index 35.1 Const: Other: Appearance: Alert. Oriented X3. No acute distress. Eyes: Pupils equal, round and reactive to light. ENT: Pharynx normal. Neck: Normal inspection. Neck supple. No lymph nodes noted. No crepitus CVS: Normal heart rate and rhythm. Pulses normal. Normal S1 and S2 Respiratory: Tachypneic, bilateral wheezing, no rales or crackles, speaking full sentences, moderate air movement Abdomen: Soft and nontender. No rigidity. No distention. Skin: Skin warm and dry. Normal skin color. Normal skin turgor. Extremities: No lower extremity edema. No Lacerations. No Rash Neuro: Oriented X 3. No motor deficit. No sensory deficit. Moving all extremities. No slurred speech. CN 2 through 12 grossly intact Psych: calm, cooperative, normal affect Course Course Course Narrative: -patient receiving IV Solu-Medrol, magnesium and albuterol -patient's oxygen saturation 95%, speaking full sentences. Medications Administered Discontinued Medications Generic Name Dose Route Start Last Admin Trade Name Freq PRN Reason Stop Dose Admin Albuterol Sulfate 5 mg/ 0 mg 02/21/24 20:04 02/21/24 20:07 Albuterol/Ipratropium 3 ml INHALE 02/21/24 20:05 7.5 each ONCE ONE Administration Magnesium Sulfate 2 gm in 50 mls @ 25 mls/hr 02/21/24 19:50 02/21/24 23:06 Magnesium Sulfate/H2o IV 02/21/24 21:49 Infused ONCE ONE Infusion Methylprednisolone Sodium Succinate 125 mg 02/21/24 19:50 02/21/24 20:47 Methylprednisolone Sod Succ 125 Mg/2 Ml Vial IVPUSH 02/21/24 19:51 125 mg ONCE ONE Administration Medical Decision Making Medical Decision Making MDM Narrative: After the IV treatment and nebulization treatment, patient feels back to baseline. -my interpretation of labs: Normal hematology, chemistry at baseline. -my interpretation of chest x-ray, no pneumonia or edema -patient states that she has had multiple vasovagal incident. Patient states they are usually triggered by anxiety. Patient will follow-up with her primary care physician. Also discussed with the patient that if she continues having random vasovagal syncopal episodes, she may be a good candidate for a Holter monitor evaluation -patient states that she avoids using inhalers at home because it makes her cough. I discussed with the patient that using albuterol during an asthma exacerbation may be life saving -patient had a vasovagal syncope today. Patient has had multiple of these episodes before. A D-dimer was not obtained, patient has a chronic elevated D- dimer. Wells criteria score for pulmonary embolism is 0. Patient states that she has been seen by Neurology for this episodes, and has been diagnosed with vasovagal syncope as well by Neurology. -patient agreeable to use albuterol p.r.n. asthma exacerbation. -patient requesting 10 mg of prednisone for the next few days instead of full- dose because she is anxious that her glucose will be elevated. Discussed with the patient to expect an elevated glucose tomorrow since we did give her Solu- Medrol. Differential Diagnosis Differential Diagnoses: The differential diagnosis associated with the presentation includes (Asthma exacerbation, anxiety, pneumonia, viral illness) Admission/Observation Consideration of admission/observation: Escalation of care including admission/observation considered (Given patient's initial presentation, admission was considered) Lab Data MDM Lab Attestation statement: I reviewed the patient's lab results. 02/21/24 20:43 02/21/24 21:22 Labs: Lab Results 02/21/24 02/21/24 02/21/24 Range/Units 20:25 20:43 21:22 WBC 10.4 (4.8-10.8) X10*3/uL RBC 5.21 (4.20-5.50) X10*6/uL Hgb 14.3 (12.0-16.0) g/dl Hct 41.6 (37.0-47.0) % MCV 79.8 L (80.0-98.0) fL MCH 27.4 (27.0-33.0) pg MCHC 34.4 (31.0-35.0) g/dl RDW 13.7 (11.0-16.0) % Plt Count 286 (160-400) X10*3/uL MPV 9.8 (9.4-12.3) fL Immature Gran % (Auto) 0.2 (0.0-0.4) % Neut % (Auto) 47.0 (45-73) % Lymph % (Auto) 42.8 H (20-40) % [place] % (Auto) 6.6 (2-11) % Eos % (Auto) 2.9 (0-4) % Baso % (Auto) 0.5 (0-2) % Lymph # (Auto) 4.4 (1.2-4.9) X10*3/uL [place] # (Auto) 0.7 (0.1-1.2) X10*3/uL Eos # (Auto) 0.3 (0.0-0.4) X10*3/uL Baso # (Auto) 0.1 (0.0-0.2) X10*3/uL Abs Immat Gran (auto) 0.02 (0.00-0.03) X10*3/uL Absolute Neuts (auto) 4.9 (2.0-8.3) x10*3/uL Absolute Nucleated RBC 0.000 (0.0-0.012) X10*3/uL Nucleated RBC % (auto) 0.0 (0.0-0.2) /100WBC Sodium 139 (135-145) mmol/L Potassium 3.4 (3.3-5.1) mmol/L Chloride 103 (96-108) mmol/L Carbon Dioxide 24 (22-29) mmol/L Anion Gap 15 (12-20) BUN 8 L (9-16) mg/dL Creatinine 0.62 (0.5-1.4) mg/dL Estim Creat Clear Calc 137.4 Estimated GFR > 60 Random Glucose 283 H (60-115) mg/dL Calcium 8.8 (8.4-10.2) mg/dL Influenza Type A (PCR) NEGATIVE (Negative) Influenza Type B (PCR) NEGATIVE (Negative) RSV RNA Qual (PCR) NEGATIVE (Negative) SARS-CoV-2 RNA (RT-PCR) NEGATIVE (Negative) Independent Interpretation I performed an independent interpretation of an: Plain X-Ray Radiology Impression Discussion of test interpretation with radiology: I have reviewed the radiologist's reading. Radiologist Impression: FINDINGS: Devices overlie the patient. Lordotic projection. The cardiac size is within normal limits. No mediastinal or hilar mass. No focal pneumonia or major zone of atelectasis. No significant pleural fluid or pneumothorax. Density superimposes over the right hemidiaphragm and may overlie the patient. XR/XR chest 1V IMPRESSION: No pneumonia or edema. Procedures Procedure Narrative Procedure Narrative: I was asked to assist with IV guidance. Using ultrasound assist was able to place a 20 gauge IV in the right upper arm. There was good blood return and the line flushed well postprocedure. There were no complications Critical Care Time Critical Care Time Critical Care Time: Yes Total Critical Care Time: 45 Attestation: I have personally provided critical care time. Time includes review of lab data, radiology results, discussion with consultants, and monitoring for potential decompensation. Intervention performed as documented. Discharge Plan Discharge Clinical Impression: Asthma Patient Disposition: Home, Self-Care Instructions: Asthma (ED) Additional Instructions: Please follow-up with your primary care physician tomorrow. Also, please discuss with your primary care physician, if you continue having vasovagal syncope, you may be a good candidate for a Holter monitor. If you have any worsening or new symptoms, please return to the emergency room or call 911 Prescriptions: New albuterol sulfate 90 mcg/actuation HFA aerosol inhaler 2 puff inhalation Q4-6H PRN (Reason: shortness of breath or wheezing) Qty: 8.5 0RF prednisone 10 mg tablet 10 mg PO DAILY Qty: 4 0RF No Action Xolair 150 mg recon soln 300 mg subcut Q2W 28 Days Qty: 4 12RF Rx Instructions: requires multiple injection sites; do not exceed 150 mg per injection site ezetimibe 10 mg tablet 10 mg PO DAILY Qty: 90 4RF cholecalciferol (vitamin D3) 50 mcg (2,000 unit) capsule 50 mcg PO DAILY Qty: 90 1RF (DME) Dexcom G6 Transmitter Device See Rx Instructions .ROUTE .COMPLEX Qty: 1 0RF Dose Instruction: DIRECTED Rx Instructions: DIRECTED (DME) Dexcom G7 Sensor Device See Rx Instructions .Route Qty: 3 5RF Rx Instructions: As directed change every 10 days (DME) nebulizers [AeroEclipse II Nebulizer] [facility] [place] See Rx Instructions .ROUTE .MEDSUPPLY Qty: 1 0RF Rx Instructions: As directed (DME) nebulizers [Compact Compressor Nebulizer] [facility] [place] See Rx Instructions .ROUTE .MEDSUPPLY Qty: 1 0RF Rx Instructions: As directed amitriptyline 25 mg tablet 1 tab PO BEDTIME metformin 1,000 mg tablet 1 tab PO BIDWM insulin glargine-yfgn [Semglee(insulin glargine-yfgn)] 100 unit/mL solution 30 unit subcut BEDTIME PRN (Reason: BLOOD SUGAR >250) benzonatate 200 mg capsule 200 mg PO TID PRN (Reason: cough) Qty: 10 0RF (DME) blood-glucose meter [FreeStyle Lite Meter] Kit See Rx Instructions .ROUTE .MEDSUPPLY Qty: 1 0RF Rx Instructions: As directed (DME) lancets [FreeStyle Lancets] 28 gauge [facility] [place] See Rx Instructions .ROUTE .MEDSUPPLY Qty: 200 1RF Rx Instructions: 5x/day amlodipine 10 mg tablet 10 mg PO DAILY rosuvastatin 40 mg tablet 40 mg PO BEDTIME 90 Days Qty: 90 2RF (DME) FreeStyle Lite Strips Strip See Rx Instructions .Route Rx Instructions: As directed albuterol sulfate 2.5 mg /3 mL (0.083 %) solution for nebulization 2.5 mg inhalation BID PRN (Reason: Shortness Of Breath Or Wheezing) Jardiance 25 mg tablet 25 mg PO DAILY Qty: 30 5RF (DME) pen needle, diabetic [Comfort EZ Pen [place]] 32 gauge x 5/16 needle See Rx Instructions .Route Qty: 100 6RF Rx Instructions: As directed injects 4X/day bisacodyl [Dulcolax (bisacodyl)] 5 mg tablet,delayed release (DR/EC) 20 mg PO ONCE 1 Days Qty: 4 0RF Rx Instructions: Take 4 tablets by mouth at 12:00pm the day before your procedure. docusate sodium [Colace] 100 mg capsule 200 mg PO BEDTIME Qty: 60 5RF Mounjaro 12.5 mg/0.5 mL pen injector 12.5 mg subcut QWEEK Qty: 2 3RF ergocalciferol (vitamin D2) 1,250 mcg (50,000 unit) capsule 1,250 mcg PO QWEEK Qty: 5 3RF Print Language: Thai
--- NOTE | 2024-02-21 20:00 | ECG_ITS ---
Test Reason : DYSPNEA Blood Pressure : / mmHG Vent. Rate : 100 BPM Atrial Rate : 100 BPM P-R Int : 122 ms QRS Dur : 102 ms QT Int : 360 ms P-R-T Axes : 048 035 027 degrees QTc Int : 464 ms Normal sinus rhythm Normal ECG When compared with ECG of 02-JAN-2024 23:24, No significant change was found Referred By: Alessandra Olson Electronically Signed By:Dony Be
[2024-02-21] MEDS: Albuterol Sulfate 5 MG, Albuterol/Iprat 2.5/0.5MG 3 ML 3 ML INHALE (20:07)
[2024-02-21 20:14] VITALS: PULSE 94; RESP 24; O2SAT 95
--- NOTE | 2024-02-21 20:36 | PC.NURSE ---
assumed care of pt, pt sating 98% on 2L nasal cannula, pt reporting increasing shortness of breath x3 days, reports hx of asthma. respiratory at bedside doing treatment for pt. pt normal sinus on tele 98-99bpm. Lalit WARD at bedside preforming ultrasound guided IV due to pt being hard stick.
[2024-02-21] MEDS: methylPREDNISolone Sod Succ 125 MG/2 ML VIAL IVPUSH (20:47)
[2024-02-21] MEDS: Magnesium Sulfate/H2O 2 GM/50 ML PIGGYBACK IV (20:47)
[2024-02-21 20:48] LABS: MANUAL DIFF FLAG NO
[2024-02-21 20:49] LABS: Basophils Absolute Auto 0.1 X10*3/uL (0.0-0.2); Basophils Percent Auto 0.5 % (0-2); Eosinophils Absolute Auto 0.3 X10*3/uL (0.0-0.4); Eosinophils Percent Auto 2.9 % (0-4); Hematocrit 41.6 % (37.0-47.0); Hemoglobin 14.3 g/dl (12.0-16.0); Imm Gran Abs Auto 0.02 X10*3/uL (0.00-0.03); Imm Gran Pct Auto 0.2 % (0.0-0.4); Lymphocytes Absolute Auto 4.4 X10*3/uL (1.2-4.9); Lymphocytes Percent Auto 42.8 % (20-40); Mean Corpuscular HGB Conc 34.4 g/dl (31.0-35.0); Mean Corpuscular Hemoglobin 27.4 pg (27.0-33.0); Mean Corpuscular Volume 79.8 fL (80.0-98.0); Mean Platelet Volume 9.8 fL (9.4-12.3); Monocytes Absolute Auto 0.7 X10*3/uL (0.1-1.2); Monocytes Percent Auto 6.6 % (2-11); Neutrophils Absolute Auto 4.9 x10*3/uL (2.0-8.3); Platelet Count 286 X10*3/uL (160-400); Red Blood Count 5.21 X10*6/uL (4.20-5.50); Red Cell Distribution Width 13.7 % (11.0-16.0); White Blood Count 10.4 X10*3/uL (4.8-10.8)
[2024-02-21 21:07] LABS: Influenza A PCR NEGATIVE (Negative); Influenza B PCR NEGATIVE (Negative); Resp Syncy Virus RNA Qual PCR NEGATIVE (Negative); SARS COV2 PCR INHOUSE NEGATIVE (Negative)
[2024-02-21 21:44] LABS: Anion Gap 15 (12-20); Blood Urea Nitrogen 8 mg/dL (9-16); Calcium 8.8 mg/dL (8.4-10.2); Carbon Dioxide 24 mmol/L (22-29); Chloride 103 mmol/L (96-108); Creatinine Clr Calc Pharmacy 137.4; Estimated Glomerular Filt Rate > 60; Glucose Random 283 mg/dL (60-115); Potassium 3.4 mmol/L (3.3-5.1); Sodium 139 mmol/L (135-145)
[2024-02-22 00:22] VITALS: BP 141/84; PULSE 100; RESP 20; TEMP 36.4; O2SAT 95
== END 2024-02-22 00:24 | disposition home or self-care (01) ==
PROVIDERS: Emergency Provider Emergency Medicine; PCP Internal Medicine
DX: J45.909 Unspecified asthma, uncomplicated (principal); R06.02 Shortness of breath; R05.9 Cough, unspecified; Z11.52 Encounter for screening for COVID-19; Z20.822 Contact with and (suspected) exposure to COVID-19; Z79.899 Other long term (current) drug therapy
CPT/HCPCS: 0241U; 36415; 71045; 80048; 85025; 93005; 94640; 96365; 96366; 96375; 99284; 99285; J2919; J2930; J3475

== ENCOUNTER → 2024-02-21 20:00 | Outpatient (BNV) | payer OTHER, SELFPAY | PROVIDERS: Emergency Provider Emergency Medicine; PCP Internal Medicine; Visit Provider Internal Medicine Cardiovascular Disease | DX: R06.00 Dyspnea, unspecified (principal) | CPT/HCPCS: 93010 ==

== ENCOUNTER 2024-04-02 09:04 | Emergency (ER) | payer OTHER, SELFPAY ==
--- NOTE | ~2024-04-02 | XR_ITS ---
EXAMINATION: XR CHEST CLINICAL INFORMATION: Shortness of breath COMPARISON: Chest radiograph from 02/21/2024 TECHNIQUE: 2 views of the chest were obtained. FINDINGS: No focal consolidation. No pneumothorax. Trachea is midline. Cardiac mediastinal silhouette is not enlarged. Aorta demonstrates mild tortuosity. No large pleural effusion. Slight dextrocurvature of the thoracic spine with mild multilevel degenerative changes. Soft tissues are unremarkable. XR/XR chest 2V IMPRESSION: No acute cardiopulmonary process.
[2024-04-02 09:08] VITALS: PULSE 91; RESP 19; TEMP 36.6; O2SAT 95; BMI 38.7
[2024-04-02 10:42] VITALS: BP 140/89; PULSE 86; RESP 15; TEMP 36.7
--- NOTE | 2024-04-02 10:44 | ED_ITS ---
HPI - General Adult General Chief complaint: Upper Respiratory Symptoms Stated complaint: asthma and throat pain Time Seen by Provider: 04/02/24 10:44 Source: patient Mode of arrival: ambulatory Limitations: no limitations History of Present Illness ED Provider: Sharee Hooker NP HPI narrative: Patient is a 48-year-old female with history of asthma presenting to the emergency department with complaint of ongoing sore throat and white spots in the back of her throat as well as shortness of breath. She states that she is receiving treatment for her asthma from her PCP. States she was also recently treated for strep pharyngitis with amoxicillin but was accidentally taking it once a day instead of twice a day as prescribed. She notified her PCP if this who advised patient that if she was still symptomatic to be re-evaluated. She denies fevers, difficulty swallowing. Denies chest pain, palpitations. Specifically requesting a chest x-ray for ongoing asthma symptoms. Onset (ago): day(s) Quality: burning Pain Consistency: constant Relieving factors: none Exacerbating factors: eating Associated symptoms: shortness of breath Treatments prior to arrival: other Related Data Home Medications ?Medication ?Instructions ?Recorded ?Confirmed amlodipine 10 mg tablet 10 mg PO DAILY 12/12/20 10/07/23 amitriptyline 25 mg tablet 1 tab PO BEDTIME 07/14/22 10/07/23 metformin 1,000 mg tablet 1 tab PO BIDWM 07/29/22 10/07/23 albuterol sulfate 2.5 mg/3 mL 2.5 mg inhalation BID PRN 08/08/22 10/07/23 (0.083 %) solution for nebulization Shortness Of Breath Or Wheezing blood sugar diagnostic (FreeStyle 08/08/22 06/04/23 Lite Strips) insulin glargine-yfgn 100 unit/mL 30 unit subcut BEDTIME PRN BLOOD 10/07/23 10/07/23 subcutaneous solution (Semglee SUGAR >250 (insulin glargine-yfgn)) Previous Rx's ?Medication ?Instructions ?Recorded nebulizers (AeroEclipse II #1 ea 12/22/20 Nebulizer) nebulizers (Compact Compressor #1 ea 12/31/20 Nebulizer) rosuvastatin 40 mg tablet 40 mg PO BEDTIME 90 days #90 tabs 04/28/21 blood-glucose meter (FreeStyle #1 ea 07/19/21 Lite Meter kit) lancets 28 gauge (FreeStyle #200 ea 07/19/21 Lancets) omalizumab 150 mg subcutaneous 300 mg subcut Q2W 28 days #4 ea 08/12/22 solution (Xolair) ezetimibe 10 mg tablet 10 mg PO DAILY #90 tabs 01/15/23 empagliflozin 25 mg tablet 25 mg PO DAILY #30 tabs 03/12/23 (Jardiance) pen needle, diabetic 32 gauge x #100 ea 03/12/23 5/16 (Comfort EZ Pen [place]) bisacodyl 5 mg tablet,delayed 20 mg (4 x 5 mg) PO ONCE 06/04/23 release (Dulcolax (bisacodyl)) colonoscopy prep 1 day #4 tabs docusate sodium 100 mg capsule 200 mg (2 x 100 mg) PO BEDTIME #60 06/04/23 (Colace) caps cholecalciferol (vitamin D3) 50 50 mcg PO DAILY #90 caps 07/08/23 mcg (2,000 unit) capsule blood-glucose transmitter (Dexcom #1 ea 08/12/23 G6 Transmitter device) benzonatate 200 mg capsule 200 mg PO TID PRN cough #10 caps 10/04/23 ergocalciferol (vitamin D2) 1,250 1,250 mcg PO QWEEK #5 caps 01/12/24 mcg (50,000 unit) capsule tirzepatide 12.5 mg/0.5 mL 12.5 mg (0.5 mL) subcut QWEEK #2 mL 01/12/24 subcutaneous pen injector ([place]) blood-glucose sensor (Dexcom G7 #3 ea 02/04/24 Sensor device) albuterol sulfate 90 mcg/actuation 2 puff inhalation Q4-6H PRN 02/22/24 aerosol inhaler shortness of breath or wheezing #8.5 grams prednisone 10 mg tablet 10 mg PO DAILY #4 tabs 02/22/24 amoxicillin 875 mg-potassium 1 tab PO BID #20 tabs 04/02/24 clavulanate 125 mg tablet Allergies Allergy/AdvReac Type Severity Reaction Status Date / Time canagliflozin [Invokana] Allergy Unknown rash Verified 04/02/24 09:12 liraglutide Allergy Unknown rash Verified 04/02/24 09:12 animals Allergy Unknown rash Uncoded 04/02/24 09:12 Pt states no known food Allergy Unknown Unknown Uncoded 04/02/24 09:12 allerg Review of Systems Review of Systems: As per HPI Yes all other systems are reviewed and are negative Constitutional: Constitutional: Reports as per HPI [facility] Past Medical History Medical History Eosinophilia Obesity due to excess calories Vitamin D deficiency Diabetic 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 with type 2 diabetes mellitus half-way (current) use of insulin Diabetes type 2, uncontrolled Ectopic Hyperlipidemia Hypertension Diabetes Asthma Surgical History History of esophagogastroduodenoscopy (EGD) Hx of colonoscopy History of surgical procedure on mouth Hx of ectopic Family History Family History Father Diabetes mellitus Stomach cancer Mother Diabetes mellitus Ovarian cancer Paternal Grandfather Colon cancer Paternal Aunt Liver cancer Paternal Aunt Liver cancer Social History Social History Household Members: Family Housing: House Do you presently have visiting nurse or other home services: No Alcohol intake: never Patient Tobacco Use Status: Never used Tobacco Advance Directives: Yes Advance Directives on File: Yes Advance Directives Date on File: 07/15/22 service: No Current occupational status: employed Physical Exam ED Vital Signs: Vital Signs - 24 hr 04/02/24 09:08 04/02/24 10:42 Temperature 98 F 98.1 F Pulse Rate 91 86 Respiratory Rate 19 15 Blood Pressure 140/89 H Pulse Oximetry 95 Oxygen Delivery Method Room Air Room Air BMI result Body Mass Index 38.7 Vital signs have been reviewed and appear to be correct. Blood pressure normal. Heart rate normal. Respiratory rate normal. Temperature normal. Oxygen saturation normal. Const General: cooperative, healthy appearing and no acute distress Orientation/consciousness: oriented to person, oriented to place, oriented to time and patient oriented x3 Limitations: no limitations HENMT Head: Yes normocephalic and Yes atraumatic Ears: external ears normal General nose exam: Normal external nose present Face and sinus: Yes face symmetric Mouth: oropharynx normal and moist mucous membranes Throat: Yes uvula midline, No peritonsillar mass, Yes posterior oropharynx abnormal (erythema, exudate, no edema) and No uvular edema Eyes Pupils: Equal, round and reactive pupils present Neck Neck: Yes normal visual inspection, Yes full ROM, Yes no lymphadenopathy and Yes supple Resp Effort & Inspection: normal respiratory effort, able to speak in complete sentences, not labored and no use of accessory muscles Auscultation: clear to auscultation bilaterally and wheezes expiratory wheezes (slight throughout) Cardio Rate: regular rate Rhythm: regular rhythm Heart sounds: S1 normal heart sound present and S2 normal heart sound present GI Palpation (GI): Soft to palpation and nontender Auscultation: normoactive bowel sounds General: Yes no CVA tenderness Back/Spine/Pelvis Back: no CVA tenderness Skin General skin exam: elasticity normal and turgor normal Neuro General: oriented to person, oriented to place, oriented to time, patient oriented x3, moves all extremities, no focal motor deficits and CN's II-XI intact bilaterally Cranial nerves: Yes Equal, round and reactive pupils present Cognition (Neuro): normal cognition Extrem General: Yes full ROM, Yes no pedal edema and Yes no calf tenderness Psych Mental Status: mental status grossly normal Affect: normal affect Thought process: Normal thought process present Medical Decision Making Medical Decision Making MDM Narrative: Patient is a 48-year-old female with history of asthma presenting to the emergency department with complaint of ongoing sore throat and white spots in the back of her throat as well as shortness of breath. On exam patient is awake, A+Ox3, VS WNL, afebrile, normal neurological exam without focal deficits, physical exam findings as above. Given reported symptoms and physical exam findings, initial differential includes strep pharyngitis, asthma exacerbation, bronchitis, pneumonia. X-ray notable for no evidence of pneumoia. My interpretation is in agreement with the radiologist's interpretation. Given that patient did not complete her course of amoxicillin as prescribed, will treat with augmentin. Instructed patient to follow-up with PCP. Return precautions discussed at bedside. Patient verbalized understanding and agreement plan. Differential Diagnosis Differential Diagnoses: The differential diagnosis associated with the presentation includes As per MDM. Independent Interpretation I performed an independent interpretation of an: Plain X-Ray Interpretation: No evidence of pneumonia on chest x-ray Radiology Impression Discussion of test interpretation with radiology: I have reviewed the radiologist's reading. Radiologist Impression: XR/XR chest 2V IMPRESSION: No acute cardiopulmonary process. External Record Review External record reviewed: Inpatient record, Office record and Outpatient record Prescription Management I considered prescription management with: Antibiotic Discharge Plan Discharge Clinical Impression: Pharyngitis Patient Disposition: Home, Self-Care Instructions: Pharyngitis (ED), Strep Throat (DC) Additional Instructions: You were evaluated in the emergency department for ongoing sore throat after being diagnosed with strep pharyngitis but not taking antibiotics as prescribed. You are being treated with a 2nd course of antibiotics, please take this medication as prescribed which is twice daily for 10 days. It is important that you complete the full course even if your symptoms improve or resolve. Please follow-up with your primary care provider. You can take Tylenol or ibuprofen per package directions as needed for discomfort. Return to the emergency department if you develop difficulty swallowing your own saliva, difficulty breathing, fevers 100.4? F or greater any other concerning symptoms. Prescriptions: New amoxicillin-pot clavulanate 875-125 mg tablet 1 tab PO BID Qty: 20 0RF No Action Xolair 150 mg recon soln 300 mg subcut Q2W 28 Days Qty: 4 12RF Rx Instructions: requires multiple injection sites; do not exceed 150 mg per injection site ezetimibe 10 mg tablet 10 mg PO DAILY Qty: 90 4RF cholecalciferol (vitamin D3) 50 mcg (2,000 unit) capsule 50 mcg PO DAILY Qty: 90 1RF (DME) Dexcom G6 Transmitter Device See Rx Instructions .ROUTE .COMPLEX Qty: 1 0RF Dose Instruction: DIRECTED Rx Instructions: DIRECTED (DME) Dexcom G7 Sensor Device See Rx Instructions .Route Qty: 3 5RF Rx Instructions: As directed change every 10 days (DME) nebulizers [AeroEclipse II Nebulizer] [facility] [place] See Rx Instructions .ROUTE .MEDSUPPLY Qty: 1 0RF Rx Instructions: As directed (DME) nebulizers [Compact Compressor Nebulizer] Mis See Rx Instructions .ROUTE .MEDSUPPLY Qty: 1 0RF Rx Instructions: As directed amitriptyline 25 mg tablet 1 tab PO BEDTIME metformin 1,000 mg tablet 1 tab PO BIDWM insulin glargine-yfgn [Semglee(insulin glargine-yfgn)] 100 unit/mL solution 30 unit subcut BEDTIME PRN (Reason: BLOOD SUGAR >250) benzonatate 200 mg capsule 200 mg PO TID PRN (Reason: cough) Qty: 10 0RF albuterol sulfate 90 mcg/actuation HFA aerosol inhaler 2 puff inhalation Q4-6H PRN (Reason: shortness of breath or wheezing) Qty: 8.5 0RF prednisone 10 mg tablet 10 mg PO DAILY Qty: 4 0RF (DME) blood-glucose meter [FreeStyle Lite Meter] Kit See Rx Instructions .ROUTE .MEDSUPPLY Qty: 1 0RF Rx Instructions: As directed (DME) lancets [FreeStyle Lancets] 28 gauge misc See Rx Instructions .ROUTE .MEDSUPPLY Qty: 200 1RF Rx Instructions: 5x/day amlodipine 10 mg tablet 10 mg PO DAILY rosuvastatin 40 mg tablet 40 mg PO BEDTIME 90 Days Qty: 90 2RF (DME) FreeStyle Lite Strips Strip See Rx Instructions .Route Rx Instructions: As directed albuterol sulfate 2.5 mg /3 mL (0.083 %) solution for nebulization 2.5 mg inhalation BID PRN (Reason: Shortness Of Breath Or Wheezing) Jardiance 25 mg tablet 25 mg PO DAILY Qty: 30 5RF (DME) pen needle, diabetic [Comfort EZ Pen [place]] 32 gauge x 5/16 needle See Rx Instructions .Route Qty: 100 6RF Rx Instructions: As directed injects 4X/day bisacodyl [Dulcolax (bisacodyl)] 5 mg tablet,delayed release (DR/EC) 20 mg PO ONCE 1 Days Qty: 4 0RF Rx Instructions: Take 4 tablets by mouth at 12:00pm the day before your procedure. docusate sodium [Colace] 100 mg capsule 200 mg PO BEDTIME Qty: 60 5RF M[place]jaro 12.5 mg/0.5 mL pen injector 12.5 mg subcut QWEEK Qty: 2 3RF ergocalciferol (vitamin D2) 1,250 mcg (50,000 unit) capsule 1,250 mcg PO QWEEK Qty: 5 3RF Print Language: Ukrainian
[2024-04-02 12:30] VITALS: BP 140/89; PULSE 86; RESP 15; TEMP 36.7; O2SAT 95
== END 2024-04-02 12:31 | disposition home or self-care (01) ==
PROVIDERS: Emergency Provider Emergency Medicine; PCP Internal Medicine
DX: J02.9 Acute pharyngitis, unspecified (principal); R06.02 Shortness of breath; J45.909 Unspecified asthma, uncomplicated; E11.8 Type 2 diabetes mellitus with unspecified complications; Z79.899 Other long term (current) drug therapy
CPT/HCPCS: 71046; 99283

== ENCOUNTER 2024-04-03 16:40 | Emergency (ER) | payer OTHER, SELFPAY ==
--- NOTE | 2024-04-03 16:42 | ECG_ITS ---
Test Reason : SHORT OF BREATHE Blood Pressure : / mmHG Vent. Rate : 101 BPM Atrial Rate : 101 BPM P-R Int : 092 ms QRS Dur : 100 ms QT Int : 344 ms P-R-T Axes : 070 061 051 degrees QTc Int : 446 ms Sinus tachycardia with short LA Otherwise normal ECG When compared with ECG of 21-FEB-2024 20:43, LA interval has decreased Referred By: Selina Mock Electronically Signed By:Dony Be
[2024-04-03 16:58] VITALS: BP 176/114; PULSE 97; RESP 28; TEMP 35.8; O2SAT 90; BMI 34.3
--- NOTE | 2024-04-03 17:07 | ED_ITS ---
HPI - SOB/Dyspnea General Chief Complaint: Asthma Stated Complaint: sob/chest pain Time Seen by Provider: 04/03/24 17:07 Source: patient Mode of arrival: ambulatory Limitations: no limitations History of Present Illness HPI Narrative: Patient's history of asthma was treated for strep pharyngitis for last few days was seen here yesterday today just prior to arrival became very short of breath wheezing use nebulizing treatment without much relief no fever no chills no chest Related Data Home Medications ?Medication ?Instructions ?Recorded ?Confirmed amlodipine 10 mg tablet 10 mg PO DAILY 12/12/20 10/07/23 amitriptyline 25 mg tablet 1 tab PO BEDTIME 07/14/22 10/07/23 metformin 1,000 mg tablet 1 tab PO BIDWM 07/29/22 10/07/23 albuterol sulfate 2.5 mg/3 mL 2.5 mg inhalation BID PRN 08/08/22 10/07/23 (0.083 %) solution for nebulization Shortness Of Breath Or Wheezing blood sugar diagnostic (FreeStyle 08/08/22 06/04/23 Lite Strips) insulin glargine-yfgn 100 unit/mL 30 unit subcut BEDTIME PRN BLOOD 10/07/23 10/07/23 subcutaneous solution (Semglee SUGAR >250 (insulin glargine-yfgn)) Previous Rx's ?Medication ?Instructions ?Recorded nebulizers (AeroEclipse II #1 ea 12/22/20 Nebulizer) nebulizers (Compact Compressor #1 ea 12/31/20 Nebulizer) rosuvastatin 40 mg tablet 40 mg PO BEDTIME 90 days #90 tabs 03/13/21 blood-glucose meter (FreeStyle #1 ea 07/19/21 Lite Meter kit) lancets 28 gauge (FreeStyle #200 ea 07/19/21 Lancets) omalizumab 150 mg subcutaneous 300 mg subcut Q2W 28 days #4 ea 08/12/22 solution (Xolair) ezetimibe 10 mg tablet 10 mg PO DAILY #90 tabs 01/15/23 empagliflozin 25 mg tablet 25 mg PO DAILY #30 tabs 03/12/23 (Jardiance) pen needle, diabetic 32 gauge x #100 ea 03/12/23 5/16 (Comfort EZ Pen [place]) bisacodyl 5 mg tablet,delayed 20 mg (4 x 5 mg) PO ONCE 06/04/23 release (Dulcolax (bisacodyl)) colonoscopy prep 1 day #4 tabs docusate sodium 100 mg capsule 200 mg (2 x 100 mg) PO BEDTIME #60 06/04/23 (Colace) caps cholecalciferol (vitamin D3) 50 50 mcg PO DAILY #90 caps 07/08/23 mcg (2,000 unit) capsule blood-glucose transmitter (Dexcom #1 ea 08/12/23 G6 Transmitter device) benzonatate 200 mg capsule 200 mg PO TID PRN cough #10 caps 10/04/23 ergocalciferol (vitamin D2) 1,250 1,250 mcg PO QWEEK #5 caps 01/12/24 mcg (50,000 unit) capsule tirzepatide 12.5 mg/0.5 mL 12.5 mg (0.5 mL) subcut QWEEK #2 mL 01/12/24 subcutaneous pen injector (Mounjaro) blood-glucose sensor (Dexcom G7 #3 ea 02/04/24 Sensor device) albuterol sulfate 90 mcg/actuation 2 puff inhalation Q4-6H PRN 02/22/24 aerosol inhaler shortness of breath or wheezing #8.5 grams prednisone 10 mg tablet 10 mg PO DAILY #4 tabs 02/22/24 amoxicillin 875 mg-potassium 1 tab PO BID #20 tabs 04/02/24 clavulanate 125 mg tablet benzonatate 200 mg capsule 200 mg PO TID PRN cough #20 caps 04/03/24 prednisone 20 mg tablet 40 mg (2 x 20 mg) PO DAILY #10 tabs 04/03/24 Allergies Allergy/AdvReac Type Severity Reaction Status Date / Time canagliflozin [Invokana] Allergy Unknown rash Verified 04/03/24 17:08 liraglutide Allergy Unknown rash Verified 04/03/24 17:08 animals Allergy Unknown rash Uncoded 04/03/24 17:08 Pt states no known food Allergy Unknown Unknown Uncoded 04/03/24 17:08 allerg Review of Systems 2 Review of Systems: Yes all other systems are reviewed and are negative PMFSH Past Medical History Medical History Eosinophilia Obesity due to excess calories Vitamin D deficiency 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 with type 2 diabetes 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 Diabetes type 2, uncontrolled Ectopic Hyperlipidemia Hypertension Diabetes Asthma Surgical History History of esophagogastroduodenoscopy (EGD) Hx of colonoscopy History of surgical procedure on mouth Hx of ectopic Family History Family History Father Diabetes mellitus Stomach cancer Mother Diabetes mellitus Ovarian cancer Paternal Grandfather Colon cancer Paternal Aunt Liver cancer Paternal Aunt Liver cancer Social History Social History Household Members: Family Housing: House Do you presently have visiting nurse or other home services: No Alcohol intake: never Patient Tobacco Use Status: Never used Tobacco Smoked in Last 30 Days: No Use of substances other than those prescribed or required for medical reasons: No Advance Directives: Yes Advance Directives on File: Yes Advance Directives Date on File: 07/15/22 service: No Current occupational status: employed Physical Exam 2 Vital Signs: Vital Signs: Last Vital Signs Temp 98.4 F 04/03/24 19:37 Pulse 103 H 04/03/24 19:37 Resp 14 04/03/24 19:37 BP 133/77 04/03/24 19:37 Pulse Ox 96 04/03/24 19:37 O2 Del Method Room Air 04/03/24 19:37 O2 Flow Rate 3 04/03/24 18:23 BMI result Body Mass Index 34.3 Appearance: Alert. Oriented X3. Moderate respiratory distress unable speak full sentences with wheezing ENT: Pharynx erythematous with exudates Oral Mucosa moist Neck: Normal inspection. Neck supple. CVS: Normal heart rate and rhythm. Pulses normal. Respiratory: No respiratory distress. Equal air entry bilateral, bilateral wheezing prolonged expiration Abdomen: Soft and nontender. Bowel sounds are present, no mass palpable, no CVA tenderness Skin: Skin warm and dry. Normal skin color. Normal skin turgor. Extremities: No lower extremity edema. No calf tenderness Neuro: Oriented X 3. No motor deficit. Medications Administered Discontinued Medications Generic Name Dose Route Start Last Admin Trade Name Freq PRN Reason Stop Dose Admin Albuterol Sulfate 5 mg 04/03/24 19:08 04/03/24 19:13 Albuterol Sulfate (0.083%) 2.5 Mg/3 Ml Vial.Neb INHALE 04/03/24 19:09 5 mg ONCE ONE Administration Albuterol Sulfate 5 mg/ 0 mg 04/03/24 17:20 04/03/24 17:24 Albuterol/Ipratropium 3 ml INHALE 04/03/24 17:21 1 each ONCE ONE Administration Sodium Chloride 1,000 mls @ 999 mls/hr 04/03/24 17:08 04/03/24 18:33 Ns IV 04/03/24 18:08 Infused .Q1H1M ONE Infusion Magnesium Sulfate 2 gm in 50 mls @ 25 mls/hr 04/03/24 17:08 04/03/24 18:33 Magnesium Sulfate/H2o IV 04/03/24 19:07 Infused ONCE ONE Infusion Methylprednisolone Sodium Succinate 125 mg 04/03/24 17:08 04/03/24 17:28 Methylprednisolone Sod Succ 125 Mg/2 Ml Vial IVPUSH 04/03/24 17:09 125 mg ONCE ONE Administration Medical Decision Making Medical Decision Making [facility] Narrative: Patient with acute asthma exacerbation improved after magnesium and nebulizing treatment will discharge patient home on prednisone Differential Diagnosis Differential Diagnoses: The differential diagnosis associated with the presentation includes Pneumonia//asthma/pneumothorax/viral pneumonitis Lab Data [facility] Lab Attestation statement: I reviewed the patient's lab results. 04/03/24 17:24 04/03/24 17:24 Labs: Lab Results 04/03/24 Range/Units 17:24 WBC 10.6 (4.8-10.8) X10*3/uL RBC 5.94 H (4.20-5.50) X10*6/uL Hgb 16.2 H (12.0-16.0) g/dl Hct 49.0 H (37.0-47.0) % MCV 82.5 (80.0-98.0) fL MCH 27.3 (27.0-33.0) pg MCHC 33.1 (31.0-35.0) g/dl RDW 13.9 (11.0-16.0) % Plt Count 337 (160-400) X10*3/uL MPV 9.8 (9.4-12.3) fL Immature Gran % (Auto) 0.4 (0.0-0.4) % Neut % (Auto) 51.7 (45-73) % Lymph % (Auto) 35.0 (20-40) % [place] % (Auto) 6.7 (2-11) % Eos % (Auto) 5.4 H (0-4) % Baso % (Auto) 0.8 (0-2) % Lymph # (Auto) 3.7 (1.2-4.9) X10*3/uL [place] # (Auto) 0.7 (0.1-1.2) X10*3/uL Eos # (Auto) 0.6 H (0.0-0.4) X10*3/uL Baso # (Auto) 0.1 (0.0-0.2) X10*3/uL Abs Immat Gran (auto) 0.04 H (0.00-0.03) X10*3/uL Absolute Neuts (auto) 5.5 (2.0-8.3) x10*3/uL Absolute Nucleated RBC 0.000 (0.0-0.012) X10*3/uL Nucleated RBC % (auto) 0.0 (0.0-0.2) /100WBC Sodium 142 (135-145) mmol/L Potassium 4.7 D (3.3-5.1) mmol/L Chloride 105 (96-108) mmol/L Carbon Dioxide 24 (22-29) mmol/L Anion Gap 18 (12-20) BUN 7 L (9-16) mg/dL Creatinine 0.67 (0.5-1.4) mg/dL Estim Creat Clear Calc 117.6 Estimated GFR > 60 Random Glucose 175 H (60-115) mg/dL Calcium 9.8 D (8.4-10.2) mg/dL Total Bilirubin 0.7 (0.0-1.0) mg/dL AST 31 (5-31) U/L ALT 29 (0-31) U/L Alkaline Phosphatase 93 (39-117) U/L Total Protein 8.5 H (6.5-8.0) g/dL Albumin 4.4 (3.5-5.0) g/dL Influenza Type A (PCR) NEGATIVE (Negative) Influenza Type B (PCR) NEGATIVE (Negative) RSV RNA Qual (PCR) NEGATIVE (Negative) SARS-CoV-2 RNA (RT-PCR) NEGATIVE (Negative) Independent Interpretation I performed an independent interpretation of an: Plain X-Ray Radiology Impression Discussion of test interpretation with radiology: I have reviewed the radiologist's reading. Discharge Plan Discharge Clinical Impression: Asthma with acute exacerbation Patient Disposition: Home, Self-Care Instructions: Asthma (ED) Additional Instructions: Use nebulizing treatment every 4-6 hours as needed for wheezing Prednisone as prescribed Continue your antibiotic for strep throat Follow with PCP Prescriptions: New benzonatate 200 mg capsule 200 mg PO TID PRN (Reason: cough) Qty: 20 0RF prednisone 20 mg tablet 40 mg PO DAILY Qty: 10 0RF No Action Xolair 150 mg recon soln 300 mg subcut Q2W 28 Days Qty: 4 12RF Rx Instructions: requires multiple injection sites; do not exceed 150 mg per injection site ezetimibe 10 mg tablet 10 mg PO DAILY Qty: 90 4RF cholecalciferol (vitamin D3) 50 mcg (2,000 unit) capsule 50 mcg PO DAILY Qty: 90 1RF (DME) Dexcom G6 Transmitter Device See Rx Instructions .ROUTE .COMPLEX Qty: 1 0RF Dose Instruction: DIRECTED Rx Instructions: DIRECTED (DME) Dexcom G7 Sensor Device See Rx Instructions .Route Qty: 3 5RF Rx Instructions: As directed change every 10 days (DME) nebulizers [AeroEclipse II Nebulizer] Misc See Rx Instructions .ROUTE .MEDSUPPLY Qty: 1 0RF Rx Instructions: As directed (DME) nebulizers [Compact Compressor Nebulizer] Misc See Rx Instructions .ROUTE .MEDSUPPLY Qty: 1 0RF Rx Instructions: As directed amitriptyline 25 mg tablet 1 tab PO BEDTIME metformin 1,000 mg tablet 1 tab PO BIDWM insulin glargine-yfgn [Semglee(insulin glargine-yfgn)] 100 unit/mL solution 30 unit subcut BEDTIME PRN (Reason: BLOOD SUGAR >250) benzonatate 200 mg capsule 200 mg PO TID PRN (Reason: cough) Qty: 10 0RF albuterol sulfate 90 mcg/actuation HFA aerosol inhaler 2 puff inhalation Q4-6H PRN (Reason: shortness of breath or wheezing) Qty: 8.5 0RF prednisone 10 mg tablet 10 mg PO DAILY Qty: 4 0RF amoxicillin-pot clavulanate 875-125 mg tablet 1 tab PO BID Qty: 20 0RF (DME) blood-glucose meter [FreeStyle Lite Meter] Kit See Rx Instructions .ROUTE .MEDSUPPLY Qty: 1 0RF Rx Instructions: As directed (DME) lancets [FreeStyle Lancets] 28 gauge misc See Rx Instructions .ROUTE .MEDSUPPLY Qty: 200 1RF Rx Instructions: 5x/day amlodipine 10 mg tablet 10 mg PO DAILY rosuvastatin 40 mg tablet 40 mg PO BEDTIME 90 Days Qty: 90 2RF (DME) FreeStyle Lite Strips Strip See Rx Instructions .Route Rx Instructions: As directed albuterol sulfate 2.5 mg /3 mL (0.083 %) solution for nebulization 2.5 mg inhalation BID PRN (Reason: Shortness Of Breath Or Wheezing) Jardiance 25 mg tablet 25 mg PO DAILY Qty: 30 5RF (DME) pen needle, diabetic [Comfort EZ Pen [place]] 32 gauge x 5/16 needle See Rx Instructions .Route Qty: 100 6RF Rx Instructions: As directed injects 4X/day bisacodyl [Dulcolax (bisacodyl)] 5 mg tablet,delayed release (DR/EC) 20 mg PO ONCE 1 Days Qty: 4 0RF Rx Instructions: Take 4 tablets by mouth at 12:00pm the day before your procedure. docusate sodium [Colace] 100 mg capsule 200 mg PO BEDTIME Qty: 60 5RF Mounjaro 12.5 mg/0.5 mL pen injector 12.5 mg subcut QWEEK Qty: 2 3RF ergocalciferol (vitamin D2) 1,250 mcg (50,000 unit) capsule 1,250 mcg PO QWEEK Qty: 5 3RF Stand Alone Forms: Work/School Release Interventions: ED Discharge Assessment Last Done: 04/03/24 19:37 Discharge Date/Time: 04/03/24 19:45 Print Language: Mohawk
[2024-04-03] MEDS: Albuterol Sulfate 5 MG, Albuterol/Iprat 2.5/0.5MG 3 ML 3 ML INHALE (17:24)
[2024-04-03 17:25] VITALS: PULSE 101; RESP 24; O2SAT 96
[2024-04-03] MEDS: 0.9 % Sodium Chloride 1,000 ML 999 ML IV (17:25)
[2024-04-03] MEDS: Magnesium Sulfate/H2O 2 GM/50 ML PIGGYBACK IV (17:27)
[2024-04-03] MEDS: methylPREDNISolone Sod Succ 125 MG/2 ML VIAL IVPUSH (17:28)
[2024-04-03 17:34] LABS: MANUAL DIFF FLAG NO
[2024-04-03 17:35] LABS: Basophils Absolute Auto 0.1 X10*3/uL (0.0-0.2); Basophils Percent Auto 0.8 % (0-2); Eosinophils Absolute Auto 0.6 X10*3/uL (0.0-0.4); Eosinophils Percent Auto 5.4 % (0-4); Hemoglobin 16.2 g/dl (12.0-16.0); Imm Gran Abs Auto 0.04 X10*3/uL (0.00-0.03); Imm Gran Pct Auto 0.4 % (0.0-0.4); Lymphocytes Absolute Auto 3.7 X10*3/uL (1.2-4.9); Mean Corpuscular HGB Conc 33.1 g/dl (31.0-35.0); Mean Corpuscular Hemoglobin 27.3 pg (27.0-33.0); Mean Corpuscular Volume 82.5 fL (80.0-98.0); Mean Platelet Volume 9.8 fL (9.4-12.3); Monocytes Absolute Auto 0.7 X10*3/uL (0.1-1.2); Monocytes Percent Auto 6.7 % (2-11); Neutrophils Absolute Auto 5.5 x10*3/uL (2.0-8.3); Neutrophils Percent Auto 51.7 % (45-73); Platelet Count 337 X10*3/uL (160-400); Red Blood Count 5.94 X10*6/uL (4.20-5.50); Red Cell Distribution Width 13.9 % (11.0-16.0); White Blood Count 10.6 X10*3/uL (4.8-10.8)
[2024-04-03 18:23] VITALS: BP 173/103; PULSE 101; RESP 17; TEMP 36.7; O2SAT 98
[2024-04-03 18:31] LABS: Influenza A PCR NEGATIVE (Negative); Influenza B PCR NEGATIVE (Negative); Resp Syncy Virus RNA Qual PCR NEGATIVE (Negative); SARS COV2 PCR INHOUSE NEGATIVE (Negative)
[2024-04-03 18:38] LABS: Alanine Aminotransferase 29 U/L (0-31); Albumin Level 4.4 g/dL (3.5-5.0); Alkaline Phosphatase 93 U/L (39-117); Anion Gap 18 (12-20); Aspartate Amino Transferase 31 U/L (5-31); Bilirubin Total 0.7 mg/dL (0.0-1.0); Blood Urea Nitrogen 7 mg/dL (9-16); Calcium 9.8 mg/dL (8.4-10.2); Carbon Dioxide 24 mmol/L (22-29); Chloride 105 mmol/L (96-108); Creatinine Clr Calc Pharmacy 117.6; Estimated Glomerular Filt Rate > 60; Glucose Random 175 mg/dL (60-115); Potassium 4.7 mmol/L (3.3-5.1); Sodium 142 mmol/L (135-145); Total Protein 8.5 g/dL (6.5-8.0)
[2024-04-03] MEDS: Albuterol Sulfate (0.083%) 2.5 MG/3 ML VIAL.NEB 5 MG INHALE (19:13)
[2024-04-03 19:15] VITALS: PULSE 98; RESP 16; O2SAT 95
[2024-04-03 19:37] VITALS: BP 133/77; PULSE 103; RESP 14; TEMP 36.9; O2SAT 96
== END 2024-04-03 19:45 | disposition home or self-care (01) ==
PROVIDERS: Emergency Provider Internal Medicine; PCP Internal Medicine
DX: J45.41 Moderate persistent asthma with (acute) exacerbation (principal); R06.02 Shortness of breath; E11.9 Type 2 diabetes mellitus without complications; I10 Essential (primary) hypertension; E78.5 Hyperlipidemia, unspecified; Z79.4 Long term (current) use of insulin; Z03.818 Encounter for observation for suspected exposure to other biological agents ruled out
CPT/HCPCS: 0241U; 80053; 85025; 93005; 94640; 96361; 96374; 96375; 99284; 99285; J2919; J3475

== ENCOUNTER → 2024-04-03 16:42 | Outpatient (BNV) | payer OTHER, SELFPAY | PROVIDERS: Emergency Provider Internal Medicine; PCP Internal Medicine; Visit Provider Internal Medicine Cardiovascular Disease | DX: R00.0 Tachycardia, unspecified (principal) | CPT/HCPCS: 93010 ==

== ENCOUNTER 2024-04-13 09:10 | Outpatient (REF) | payer OTHER, SELFPAY ==
[2024-04-13 11:01] LABS: Estimated Average Glucose 203 mg/dL; Hemoglobin A1c % 8.7 % (<6.0)
[2024-04-13 11:22] LABS: Alanine Aminotransferase 26 U/L (0-31); Albumin Level 4.3 g/dL (3.5-5.0); Alkaline Phosphatase 83 U/L (39-117); Anion Gap 14 (12-20); Aspartate Amino Transferase 15 U/L (5-31); Bilirubin Total 0.9 mg/dL (0.0-1.0); Blood Urea Nitrogen 8 mg/dL (9-16); Calcium 9.2 mg/dL (8.4-10.2); Carbon Dioxide 21 mmol/L (22-29); Chloride 109 mmol/L (96-108); Cholesterol 149 mg/dL (<200); Estimated Glomerular Filt Rate > 60; Glucose Random 155 mg/dL (60-115); HDL Cholesterol 66 mg/dL (>40); LDL Cholesterol Calculated 64 mg/dL (<100); Potassium 3.7 mmol/L (3.3-5.1); Sodium 140 mmol/L (135-145); Total Protein 7.4 g/dL (6.5-8.0); Triglycerides 98 mg/dL (<150)
== END 2024-04-13 09:11 | disposition home or self-care (01) ==
LOC: HO.10HDL 09:10
PROVIDERS: Visit Provider Internal Medicine
DX: Z13.89 Encounter for screening for other disorder (principal)
CPT/HCPCS: 36415; 80053; 80061; 83036

== ENCOUNTER 2024-04-14 09:34 | Inpatient (IN) | payer OTHER, SELFPAY ==
[2024-04-14] VITALS (10 sets, daily range): BP systolic 133–181; BP diastolic 76–100; PULSE 88–100; RESP 16–28; TEMP 36.1–37.2; O2SAT 93–96; BMI 35.3; BMI 36.2
--- NOTE | ~2024-04-14 | CT_ITS ---
EXAMINATION: CT ANGIOGRAM OF THE CHEST WITH AND WITHOUT CONTRAST (CT PULMONARY ANGIOGRAM FOR PE) CLINICAL INFORMATION: Reason for Exam sob, dyspnea COMPARISON: Chest radiograph 04/14/2024 TECHNIQUE: Prior to contrast administration, noncontrast localization images were obtained. Subsequently, multidetector volumetric imaging was performed from the thoracic inlet to below the diaphragms following the administration of 80 mL Omnipaque 350 intravenous contrast. No contrast reaction reported Sagittal, coronal, and MIP oblique sagittal reformatted images were obtained on the CT workstation, uploaded to PACS, and reviewed. This CT examination was performed using dose optimization techniques as appropriate, variously including the following: *Automated exposure control *Adjustment of mA and/or kV according to patient size (this includes techniques or standardized protocols for targeted exams where dose is matched to indication/reason for exam; i.e. extremities or head) *Use of iterative reconstruction technique Total exam dose-length product 306 mGy-cm FINDINGS: QUALITY OF STUDY/CONTRAST BOLUS: Satisfactory. PULMONARY ARTERIES: No pulmonary emboli. THORACIC AORTA: No aneurysm. LUNG: No focal consolidation, nodules or masses. Minor areas of mosaic perfusion incidentally seen. PLEURA: No pleural effusion or pneumothorax. MEDIASTINUM: Normal heart size. No pericardial effusion. No hilar or mediastinal lymphadenopathy. No evidence of septal bowing or right heart strain. CORONARY ARTERY CALCIFICATION: None visualized on this study. CHEST WALL/AXILLA: No axillary or internal mammary lymphadenopathy. OSSEOUS STRUCTURES: No acute or suspicious osseous abnormality. UPPER ABDOMEN: Advanced hepatic steatosis. Adrenals normal. No reflux of contrast into the hepatic veins to suggest elevated right heart pressures. CT/CT angio chest PE protocol IMPRESSION: No active disease and no evidence for acute PE. VTE: negative
--- NOTE | ~2024-04-14 | XR_ITS ---
EXAMINATION: XR CHEST CLINICAL INFORMATION: Wheezing and productive cough COMPARISON: 04/02/2024 TECHNIQUE: Frontal view of the chest was obtained. FINDINGS: No significant abnormality is noted involving the heart, lungs, mediastinum, bony thorax or soft tissues. XR/XR chest 1V IMPRESSION: Unremarkable examination, without interval change.
--- NOTE | ~2024-04-14 | CT_ITS ---
Examination: CT chest, abdomen pelvis without IV contrast. Clinical indications: Chest pain post endoscopy. Abdominal pain. COMPARISON: CTA chest 04/14/2024 TECHNIQUE: 5 mm thin axial and reformatted 3 mm thin sagittal and coronal images of chest, abdomen pelvis were obtained. DLP [id number]. This CT examination was performed using dose optimization technique as appropriate, variously including the following: Automated exposure control Adjustment of MA and/or KV according to patient size(this includes techniques or standardized protocols for targeted exams where dose is matched to indication/reason for exam; extremities or head. Use of iterative reconstruction techniques. FINDINGS: CHEST: LUNGS: The lungs are well-expanded and clear of acute pneumonic process. Pleura: There is no pleural effusion, thickening or calcified pleural plaques. Mediastinum: The thyroid lobes are symmetrical and normal. The central trachea and the bronchi widely patent. Heart size and the great vessels are normal caliber. There is no pneumomediastinum or pericardial fluid. No abnormal mediastinal hematoma. Axilla: Unremarkable. The chest wall: Unremarkable. Osseous structures: No aggressive lytic or sclerotic process. ABDOMEN AND PELVIS: Liver, ducts and gallbladder: The liver is normal size, contour and density. No focal liver lesions or intrahepatic ductal dilatation. The gallbladder appears contracted but unremarkable. Spleen: Unremarkable. There is a small accessory splenule along the inferior tip. Pancreas: Unremarkable. Adrenal glands: Unremarkable. Kidneys and ureter: There is a 3 mm nonobstructive radiopaque calculi midpole right kidney. No additional radiopaque calculi seen. There is no caliectasis or hydronephrosis. Both kidneys are symmetrical and otherwise unremarkable. Lymphovascular structures: Unremarkable. GI tract: There is moderate scattered stool seen throughout the colon without distention. The small bowel loops are normal caliber. Appendix is normal caliber. There is moderate amount of food within the stomach from recent ingestion. Abdominal wall: Unremarkable. Pelvis: The uterus is anteverted with an IUD well located in the endometrial canal. No adnexal mass seen. There is no free fluid the inguinal canal is unremarkable. The urinary bladder is mildly distended. Osseous structures: No aggressive lytic or sclerotic process seen. CT/CT abdomen pelvis wo IV con IMPRESSION: Unremarkable CT chest, abdomen and pelvic exam. There is no pneumomediastinum, free air or mediastinal upper abdominal hernia. The stomach is distended with recently ingested food. Mild constipation. Nonobstructive radiopaque calculi mid pole right kidney.
--- NOTE | 2024-04-14 09:46 | ECG_ITS ---
Test Reason : SOB Blood Pressure : / mmHG Vent. Rate : 099 BPM Atrial Rate : 099 BPM P-R Int : 122 ms QRS Dur : 100 ms QT Int : 338 ms P-R-T Axes : 088 062 056 degrees QTc Int : 433 ms Artifact in tracing Normal sinus rhythm Normal ECG No significant changes when compared with the previous EKG of 03 apr 2024 Referred By: Debbie Alvarado Electronically Signed By:MONA HICKS
--- NOTE | 2024-04-14 09:57 | ED.ASTHMA ---
HPI - Asthma General Chief Complaint: Asthma Stated Complaint: low 02 diff breathing sent in by pcp Time Seen by Provider: 04/14/24 09:45 Source: patient Mode of arrival: ambulatory Limitations: no limitations History of Present Illness ED Provider: Kirk Alvarado PA-C HPI Narrative: 48-year-old female with a history of moderate to severe persistent asthma, DM 2 on insulin, HTN, obesity, HLD, constipation who presents to the ER from Urgent Care for evaluation of SOB, worsening asthma symptoms for the last few weeks despite being on prednisone, inhalers and using her nebulizer at home. For her asthma she is on Xolair, Trelegy and albuterol MDI. She follows with Dr. Lewis.. She last saw him in January. Reports last PFTs 2 years ago. She states since removing some carpeting in her home in December she has had ongoing and recurrent asthma exacerbations. She states she has been to the ER several times, given courses of antibiotics and steroids with minimal relief. She states she is extremely frustrated with her respiratory status. She states she can not work because she was so dyspneic with conversation and with exertion. She can not lie flat due to difficulty breathing. She reports minimal relief with her nebulizers at home. She is due for her Xolair injection tomorrow. She denies any fever or chills. No known sick contacts. She states she is bringing up dark yellow phlegm. She was seen at the urgent care today where her SpO2 was found to be in the low 90s so she was referred to the ER for further evaluation. MD complaint: shortness of breath and wheezing Onset (ago): week(s) Severity: worse than usual Associated symptoms: productive cough Asthma History: adult onset (15 years ago) Treatments Prior to Arrival: inhaled bronchodilator Related Data Current Asthma Therapy: inhaled bronchodilator, inhaled steroid and recent oral steroid Home Medications ?Medication ?Instructions ?Recorded ?Confirmed amlodipine 10 mg tablet 10 mg PO DAILY 12/12/20 10/07/23 amitriptyline 25 mg tablet 1 tab PO BEDTIME 07/14/22 10/07/23 metformin 1,000 mg tablet 1 tab PO BIDWM 07/29/22 10/07/23 albuterol sulfate 2.5 mg/3 mL 2.5 mg inhalation BID PRN 08/08/22 10/07/23 (0.083 %) solution for nebulization Shortness Of Breath Or Wheezing blood sugar diagnostic (FreeStyle 08/08/22 06/04/23 Lite Strips) insulin glargine-yfgn 100 unit/mL 30 unit subcut BEDTIME PRN BLOOD 10/07/23 10/07/23 subcutaneous solution (Semglee SUGAR >250 (insulin glargine-yfgn)) Previous Rx's ?Medication ?Instructions ?Recorded nebulizers (AeroEclipse II #1 ea 12/22/20 Nebulizer) nebulizers (Compact Compressor #1 ea 12/31/20 Nebulizer) rosuvastatin 40 mg tablet 40 mg PO BEDTIME 90 days #90 tabs 03/13/21 blood-glucose meter (FreeStyle #1 ea 07/19/21 Lite Meter kit) lancets 28 gauge (FreeStyle #200 ea 07/19/21 Lancets) omalizumab 150 mg subcutaneous 300 mg subcut Q2W 28 days #4 ea 08/12/22 solution (Xolair) ezetimibe 10 mg tablet 10 mg PO DAILY #90 tabs 01/15/23 empagliflozin 25 mg tablet 25 mg PO DAILY #30 tabs 03/12/23 (Jardiance) pen needle, diabetic 32 gauge x #100 ea 03/12/23 5/16 (Comfort EZ Pen Mobile) bisacodyl 5 mg tablet,delayed 20 mg (4 x 5 mg) PO ONCE 06/04/23 release (Dulcolax (bisacodyl)) colonoscopy prep 1 day #4 tabs docusate sodium 100 mg capsule 200 mg (2 x 100 mg) PO BEDTIME #60 06/04/23 (Colace) caps cholecalciferol (vitamin D3) 50 50 mcg PO DAILY #90 caps 07/08/23 mcg (2,000 unit) capsule blood-glucose transmitter (Dexcom #1 ea 08/12/23 G6 Transmitter device) benzonatate 200 mg capsule 200 mg PO TID PRN cough #10 caps 10/04/23 ergocalciferol (vitamin D2) 1,250 1,250 mcg PO QWEEK #5 caps 01/12/24 mcg (50,000 unit) capsule tirzepatide 12.5 mg/0.5 mL 12.5 mg (0.5 mL) subcut QWEEK #2 mL 01/12/24 subcutaneous pen injector (Mounjaro) blood-glucose sensor (Dexcom G7 #3 ea 02/04/24 Sensor device) albuterol sulfate 90 mcg/actuation 2 puff inhalation Q4-6H PRN 02/22/24 aerosol inhaler shortness of breath or wheezing #8.5 grams prednisone 10 mg tablet 10 mg PO DAILY #4 tabs 02/22/24 amoxicillin 875 mg-potassium 1 tab PO BID #20 tabs 04/02/24 clavulanate 125 mg tablet benzonatate 200 mg capsule 200 mg PO TID PRN cough #20 caps 04/03/24 prednisone 20 mg tablet 40 mg (2 x 20 mg) PO DAILY #10 tabs 04/03/24 Allergies Allergy/AdvReac Type Severity Reaction Status Date / Time canagliflozin [Invokana] Allergy Unknown rash Verified 04/14/24 09:42 liraglutide Allergy Unknown rash Verified 04/14/24 09:42 animals Allergy Unknown rash Uncoded 04/14/24 09:42 Pt states no known food Allergy Unknown Unknown Uncoded 04/14/24 09:42 allerg Review of Systems Review of Systems: Yes all other systems are reviewed and are negative PMFSH Past Medical History Medical History Eosinophilia Obesity due to excess calories Vitamin D deficiency 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 with type 2 diabetes 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 Diabetes type 2, uncontrolled Ectopic Hyperlipidemia Hypertension Diabetes Asthma Surgical History History of esophagogastroduodenoscopy (EGD) Hx of colonoscopy History of surgical procedure on mouth Hx of ectopic Family History Family History Father Diabetes mellitus Stomach cancer Mother Diabetes mellitus Ovarian cancer Paternal Grandfather Colon cancer Paternal Aunt Liver cancer Paternal Aunt Liver cancer Social History Social History Household Members: Family Housing: House Do you presently have visiting nurse or other home services: No Alcohol intake: never Patient Tobacco Use Status: Never used Tobacco Advance Directives: Yes Advance Directives on File: Yes Advance Directives Date on File: 07/15/22 service: No Current occupational status: employed Physical Exam Vital Signs: Vital Signs: Last Vital Signs Temp 98.9 F 04/14/24 09:37 Pulse 94 04/14/24 10:41 Resp 20 04/14/24 10:41 BP 181/100 H 04/14/24 09:37 Pulse Ox 95 04/14/24 09:37 O2 Del Method Room Air 04/14/24 09:37 BMI result Body Mass Index 35.3 Appearance: Alert. Oriented X3. Audible wheezing. Tearful. Head: normocephalic, atraumatic. Eyes: Pupils equal, round and reactive to light. ENT: Pharynx normal. No tonsillar swelling or exudate. Neck: Normal inspection. Neck supple. CVS: Normal heart rate and rhythm. Pulses normal. Respiratory: Mild respiratory distress. Able to speak in complete sentences however dyspneic doing so, diffuse inspiratory and expiratory wheezing throughout. Abdomen: Soft and nontender. +BS x4 Skin: Skin warm and dry. Normal skin color. Normal skin turgor. No rashes. Extremities: No lower extremity edema. No joint swelling. Neuro/psych: Oriented X 3. No motor deficit. No sensory deficit. CN II-XII intact. Normal speech and cognition. Course Reevaluation(s) Reevaluation #1: Patient received [id number] 10 mg albuterol nebulizers with some improvement in her symptoms. She continues to be wheezy and dyspneic. Will plan for admission to the hospital for further evaluation and treatment. Time: 11:31 Reevaluation #2: case d/w hospitalist. will admit. will get CTA for further re-evaluation of lung parancyhma and r/o PE although less likely given diffuse wheezing. Time: 13:00 Medications Administered Discontinued Medications Generic Name Dose Route Start Last Admin Trade Name Freq PRN Reason Stop Dose Admin Albuterol Sulfate 5 mg/ 0 mg 04/14/24 10:19 04/14/24 10:21 Albuterol/Ipratropium 3 ml INHALE 04/14/24 10:20 2.5 each ONCE ONE Administration Albuterol Sulfate 5 mg/ 0 mg 04/14/24 10:39 04/14/24 12:59 Albuterol/Ipratropium 3 ml INHALE 04/14/24 10:40 Not Given ONCE ONE Albuterol Sulfate 7.5 mg/ 0 mg 04/14/24 10:19 04/14/24 12:57 Albuterol/Ipratropium 3 ml INHALE 04/14/24 10:20 2.5 each ONCE ONE Administration Albuterol Sulfate 2.5 mg/ 0 mg 04/14/24 10:39 04/14/24 12:58 Albuterol/Ipratropium 3 ml INHALE 04/14/24 10:40 2.5 dose ONCE ONE Administration Magnesium Sulfate 2 gm in 50 mls @ 150 mls/hr 04/14/24 09:46 04/14/24 11:38 Magnesium Sulfate/H2o IV 04/14/24 10:05 150 mls/hr ONCE ONE Administration Doxycycline Hyclate 100 mg/ 250 mls @ 166.67 mls/hr 04/14/24 11:32 04/14/24 12:48 Sodium Chloride IV 04/14/24 13:01 166.67 mls/hr ONCE ONE Administration Methylprednisolone Sodium Succinate 60 mg 04/14/24 09:56 04/14/24 11:38 Methylprednisolone Sod Succ 125 Mg/2 Ml Vial IVPUSH 04/14/24 09:57 60 mg ONCE ONE Administration Medical Decision Making Medical Decision Making MDM Narrative: 48-year-old female with a history of severe persistent asthma presents to the ER for evaluation of ongoing and worsening asthma symptoms for the last several weeks despite antibiotics and steroids. She has been compliant with her inhalers and nebulizers at home with minimal relief. She reports yellow phlegm with coughing. No fevers. On arrival to the ER patient is slightly tachypneic with diffuse inspiratory and expiratory wheezes throughout. E.d. bronchodilator protocol initiated and she was given 2 breathing treatments back to back for ongoing wheezing. She was given IV steroids and IV magnesium as well. Chest x-ray does not show any evidence of focal infiltrate or pneumonia. On re-evaluation her aeration is slightly improved although she remains largely wheezy with inspiration and expiration. Will plan to admit to the hospital for further treatment. Differential Diagnosis Differential Diagnoses: The differential diagnosis associated with the presentation includes Acute asthma exacerbation, viral URI, acute CHF exacerbation, reactive airway disease, pneumonitis, I LD, COPD Admission/Observation Consideration of admission/observation: Escalation of care including admission/observation considered Consult Healthcare Provider Management of the patient was discussed with: Hospitalist Lab Data MDM Lab Attestation statement: I reviewed the patient's lab results. Leukocytosis likely due to steroids, erythrocytosis possibly due to respiratory failure chronically 04/14/24 10:46 04/14/24 10:46 Labs: Lab Results 04/14/24 04/14/24 Range/Units 10:46 12:19 WBC 14.6 H (4.8-10.8) X10*3/uL RBC 5.85 H (4.20-5.50) X10*6/uL Hgb 15.9 (12.0-16.0) g/dl Hct 47.7 H (37.0-47.0) % MCV 81.5 (80.0-98.0) fL MCH 27.2 (27.0-33.0) pg MCHC 33.3 (31.0-35.0) g/dl RDW 13.7 (11.0-16.0) % Plt Count 313 (160-400) X10*3/uL MPV 9.6 (9.4-12.3) fL Immature Gran % (Auto) 0.3 (0.0-0.4) % Neut % (Auto) 51.2 (45-73) % Lymph % (Auto) 39.4 (20-40) % [place] % (Auto) 5.7 (2-11) % Eos % (Auto) 2.7 (0-4) % Baso % (Auto) 0.7 (0-2) % Lymph # (Auto) 5.8 H (1.2-4.9) X10*3/uL [place] # (Auto) 0.8 (0.1-1.2) X10*3/uL Eos # (Auto) 0.4 (0.0-0.4) X10*3/uL Baso # (Auto) 0.1 (0.0-0.2) X10*3/uL Abs Immat Gran (auto) 0.04 H (0.00-0.03) X10*3/uL Absolute Neuts (auto) 7.5 (2.0-8.3) x10*3/uL Absolute Nucleated RBC 0.000 (0.0-0.012) X10*3/uL Nucleated RBC % (auto) 0.0 (0.0-0.2) /100WBC Smear Tech's Comments VERIFIED Sodium 141 (135-145) mmol/L Potassium 4.0 (3.3-5.1) mmol/L Chloride 108 (96-108) mmol/L Carbon Dioxide 22 (22-29) mmol/L Anion Gap 15 (12-20) BUN 9 (9-16) mg/dL Creatinine 0.59 (0.5-1.4) mg/dL Estim Creat Clear Calc 140.1 Estimated GFR > 60 Random Glucose 184 H (60-115) mg/dL Lactic Acid 2.4 H* (0.5-2.0) mmol/L Calcium 9.3 (8.4-10.2) mg/dL Magnesium 2.0 (1.6-2.6) mg/dL Total Bilirubin 1.0 (0.0-1.0) mg/dL Direct Bilirubin 0.3 (0.0-0.5) mg/dL AST 15 (5-31) U/L ALT 25 (0-31) U/L Alkaline Phosphatase 80 (39-117) U/L Troponin I High Sens < 2.7 (<3.5-17.0) ng/L Total Protein 7.4 (6.5-8.0) g/dL Albumin 4.2 (3.5-5.0) g/dL Influenza Type A (PCR) NEGATIVE (Negative) Influenza Type B (PCR) NEGATIVE (Negative) RSV RNA Qual (PCR) NEGATIVE (Negative) SARS-CoV-2 RNA (RT-PCR) NEGATIVE (Negative) ABG Data ABG Results: Attestation ABG: I personally reviewed and interpreted this ABG as follows: Interpretation: Acute respiratory alkalosis Independent Interpretation I performed an independent interpretation of an: EKG and Plain X-Ray Interpretation: EKG with normal sinus rhythm, ventricular rate 99 beats per minute, normal QTC, normal MN interval, no ST segment elevations or depressions X-ray without focal infiltrate or suspicious lesion, agrees radiology read Radiology Impression Discussion of test interpretation with radiology: I have reviewed the radiologist's reading. Radiologist Impression: EXAMINATION: XR CHEST CLINICAL INFORMATION: Wheezing and productive cough COMPARISON: 04/02/2024 TECHNIQUE: Frontal view of the chest was obtained. FINDINGS: No significant abnormality is noted involving the heart, lungs, mediastinum, bony thorax or soft tissues. XR/XR chest 1V IMPRESSION: Unremarkable examination, without interval change. External Record Review External record reviewed: Office record, Outpatient record, Prior outpatient labs and Prior outpatient radiology Tests considered The following testing was considered but not selected: CTA considered given right-sided lung pain however low clinical suspicion for pulmonary embolism Prescription Management I considered prescription management with: Antiviral and Antibiotic Chronic Conditions Patient?s care impacted by: Other (Asthma) Critical Care Time Critical Care Time Critical Care Time: Yes Total Critical Care Time: 42 Attestation: I have personally provided critical care time exclusive of time spent on separately billable procedures. Time includes review of lab data, radiology results, discussion with consultants, and monitoring for potential decompensation. Intervention performed as documented. Discharge Plan Discharge Clinical Impression: Acute asthma exacerbation Qualifiers: Asthma severity: severe Asthma persistence: persistent Qualified Code(s): J45.51 - Severe persistent asthma with (acute) exacerbation Patient Disposition: Admitted As Inpatient Print Language: Turkish
[2024-04-14] MEDS: Albuterol Sulfate 5 MG, Albuterol/Iprat 2.5/0.5MG 3 ML 3 ML INHALE (10:21)
[2024-04-14 10:53] LABS: Basophils Absolute Auto 0.1 X10*3/uL (0.0-0.2); Basophils Percent Auto 0.7 % (0-2); Eosinophils Absolute Auto 0.4 X10*3/uL (0.0-0.4); Eosinophils Percent Auto 2.7 % (0-4); Hematocrit 47.7 % (37.0-47.0); Hemoglobin 15.9 g/dl (12.0-16.0); Imm Gran Abs Auto 0.04 X10*3/uL (0.00-0.03); Imm Gran Pct Auto 0.3 % (0.0-0.4); Lymphocytes Absolute Auto 5.8 X10*3/uL (1.2-4.9); Lymphocytes Percent Auto 39.4 % (20-40); MANUAL DIFF FLAG SCAN; Mean Corpuscular HGB Conc 33.3 g/dl (31.0-35.0); Mean Corpuscular Hemoglobin 27.2 pg (27.0-33.0); Mean Corpuscular Volume 81.5 fL (80.0-98.0); Mean Platelet Volume 9.6 fL (9.4-12.3); Monocytes Absolute Auto 0.8 X10*3/uL (0.1-1.2); Monocytes Percent Auto 5.7 % (2-11); Neutrophils Absolute Auto 7.5 x10*3/uL (2.0-8.3); Neutrophils Percent Auto 51.2 % (45-73); Platelet Count 313 X10*3/uL (160-400); Red Blood Count 5.85 X10*6/uL (4.20-5.50); Red Cell Distribution Width 13.7 % (11.0-16.0); SCAN SMEAR FLAG 1; White Blood Count 14.6 X10*3/uL (4.8-10.8)
[2024-04-14 11:09] LABS: Alanine Aminotransferase 25 U/L (0-31); Albumin Level 4.2 g/dL (3.5-5.0); Alkaline Phosphatase 80 U/L (39-117); Anion Gap 15 (12-20); Aspartate Amino Transferase 15 U/L (5-31); Bilirubin Direct 0.3 mg/dL (0.0-0.5); Blood Urea Nitrogen 9 mg/dL (9-16); Calcium 9.3 mg/dL (8.4-10.2); Carbon Dioxide 22 mmol/L (22-29); Chloride 108 mmol/L (96-108); Creatinine Clr Calc Pharmacy 140.1; Estimated Glomerular Filt Rate > 60; Glucose Random 184 mg/dL (60-115); Sodium 141 mmol/L (135-145); Total Protein 7.4 g/dL (6.5-8.0)
[2024-04-14 11:11] LABS: SLIDE REVIEW VERIFIED
[2024-04-14 11:16] LABS: Troponin-I High Sensitivity < 2.7 ng/L (<3.5-17.0)
[2024-04-14 11:35] LABS: Influenza A PCR NEGATIVE (Negative); Influenza B PCR NEGATIVE (Negative); Resp Syncy Virus RNA Qual PCR NEGATIVE (Negative); SARS COV2 PCR INHOUSE NEGATIVE (Negative)
[2024-04-14] MEDS: Magnesium Sulfate/H2O 2 GM/50 ML PIGGYBACK IV (11:38)
[2024-04-14] MEDS: methylPREDNISolone Sod Succ 125 MG/2 ML VIAL 60 MG IVPUSH (11:38)
[2024-04-14 12:41] LABS: Lactic Acid 2.4 mmol/L (0.5-2.0)
[2024-04-14] MEDS: Doxycycline Hyclate 100 MG in 0.9 % Sodium Chloride 250 ML 166.67 MG IV (12:48)
[2024-04-14] MEDS: Albuterol Sulfate 7.5 MG, Albuterol/Iprat 2.5/0.5MG 3 ML 3 ML INHALE (12:57)
[2024-04-14] MEDS: Albuterol Sulfate 2.5 MG, Albuterol/Iprat 2.5/0.5MG 3 ML 3 ML INHALE (12:58)
--- NOTE | 2024-04-14 13:45 | PM.IMHP ---
History of Present Illness Date of Service: 04/14/24 Attending physician on admission: Taryn Santiago Chief Complaint: sob, cough 48 year old female with history of noninsulin dependent type 2 diabetes, severe persistent asthma, and severe obesity with BMI greater than 35 presented to the ED for evaluation of sob, primarily with exertion, and occasionally productive cough. This has been ongoing for over 1 month and patient has been seen in the ER on 3 other occasions in the past 2 months and prescribed prednisone with temporary improvement of symptoms but with quick relapse. She does follow with pulmonology and is on Xolair injections as well as Singulair. Despite this, has been using her albuterol nebulizers up to 10 times daily which is limiting her ability to work. Reports symptoms again worsen when speaking. She is also reporting dysphagia and globus sensation ongoing for several weeks. No fevers, chills, sick contacts, abdominal pain, nausea, vomiting, diarrhea, lightheadedness, orthopnea, edema, chest pain. On arrival, VSS except for mild tachycardia secondary to albuterol use and tachypnea to 28. She is also hypertensive to 181/100. No hypoxia or fevers. She has a leukocytosis of 14.6. Renal function electrolyte levels normal. Lactic acid 2.4. Troponin below detectable limits. BNP pending. Urinalysis unremarkable. Negative for COVID-19, RSV, influenza. Full viral respiratory panel pending. Chest x-ray negative for any acute cardiopulmonary abnormality. In the ed has received 10mg albuterol x 2, 60mg iv methylprednisolone, 2mg iv mag, and doxycycline. Review of Systems Review of Systems: Yes all other systems are reviewed and are negative [facility] Medical History Eosinophilia Obesity due to excess calories Vitamin D deficiency Diabetic 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 with type 2 diabetes mellitus longterm (current) use of insulin Diabetes type 2, uncontrolled Ectopic Hyperlipidemia Hypertension Diabetes Asthma Family History Father Diabetes mellitus Stomach cancer Mother Diabetes mellitus Ovarian cancer Paternal Grandfather Colon cancer Paternal Aunt Liver cancer Paternal Aunt Liver cancer Surgical History History of esophagogastroduodenoscopy (EGD) Hx of colonoscopy History of surgical procedure on mouth Hx of ectopic Social History Household Members: Family Housing: House Do you presently have visiting nurse or other home services: No Alcohol intake: never Patient Tobacco Use Status: Never used Tobacco Advance Directives: Yes Advance Directives on File: Yes Advance Directives Date on File: 07/15/22 service: No Current occupational status: employed Meds Allergies Allergy/AdvReac Type Severity Reaction Status Date / Time canagliflozin [Invokana] Allergy Unknown rash Verified 04/14/24 09:42 liraglutide Allergy Unknown rash Verified 04/14/24 09:42 animals Allergy Unknown rash Uncoded 04/14/24 09:42 Pt states no known food Allergy Unknown Unknown Uncoded 04/14/24 09:42 allerg Active Medications: Current Medications Acetaminophen (Acetaminophen 325 Mg Tablet) 650 mg PO Q6H PRN PRN Reason: Pain, Mild (Pain Scale 1-3) Albuterol/Ipratropium (Albuterol/Iprat 2.5/0.5mg 3 Ml Ampul.Neb) 3 ml INHALE RQ4H WHILE AWAKE SIXTO Enoxaparin Sodium (Enoxaparin Sodium 40 Mg/0.4 Ml Syringe) 40 mg SUBCUT Q24H SIXTO Glucose (Glucose Gel 15 Gm Gel..Gram.) 15 gm PO Q15M PRN; Protocol PRN Reason: per Hypoglycemia Standing Ord. Guaifenesin/Codeine Phosphate (Guaifen/Codeine Sf 200/20/10ml 10 Ml Liquid) 5 ml PO Q6H SIXTO Dextrose (D10) 250 mls @ 750 mls/hr IV Q15M PRN; Protocol PRN Reason: per Hypoglycemia Standing Ord. Insulin Human Lispro (Insulin Lispro 100 Unit/Ml 3 Ml Vial) 0 unit SUBCUT QIDACHS SIXTO; Protocol Magnesium Hydroxide (Milk Of Magnesia 30 Ml Oral.Susp) 30 ml PO DAILY PRN PRN Reason: Constipation Methylprednisolone Sodium Succinate (Methylprednisolone Sod Succ 40 Mg/Ml Vial) 40 mg IVPUSH Q12H SIXTO Nystatin (Nystatin Oral Susp 500,000 Unit/5 Ml Oral.Susp) 400,000 unit PO QID SIXTO; Protocol Ondansetron HCl (Ondansetron Hcl 4 Mg/2 Ml Vial) 4 mg IVPUSH Q8H PRN PRN Reason: Nausea and Vomiting Sodium Chloride (0.9 % Sodium Chloride Flush 3 Ml Syringe) 3 ml IVFLUSH QSHIFT [facility] Home Medications ?Medication ?Instructions ?Recorded ?Confirmed ?Last Taken ?Type amlodipine 10 mg tablet 10 mg PO DAILY 12/12/20 04/14/24 04/14/24 09:00 History amitriptyline 25 mg tablet 1 tab PO BEDTIME 07/14/22 04/14/24 02/25/23 History metformin 1,000 mg tablet 1 tab PO BIDWM 07/29/22 04/14/24 04/14/24 09:00 History albuterol sulfate 2.5 mg/3 mL 2.5 mg inhalation BID PRN 08/08/22 04/14/24 Unknown History (0.083 %) solution for nebulization Shortness Of Breath Or Wheezing blood sugar diagnostic (FreeStyle 08/08/22 06/04/23 Unknown History Lite Strips) albuterol sulfate 90 mcg/actuation 2 puff inhalation Q6H PRN 04/14/24 04/14/24 Unknown History aerosol inhaler shortness of breath or wheezing ergocalciferol (vitamin D2) 1,250 1,250 mcg PO WE@0904/14/24 04/14/24 04/13/24 History mcg (50,000 unit) capsule prednisone 20 mg tablet 20 mg PO ONCE 04/14/24 04/14/24 Unknown History tirzepatide 10 mg/0.5 mL 10 mg subcut SA@0900 04/14/24 04/14/24 Unknown History subcutaneous pen injector ([place]) Physical Exam Vital Signs and Narrative: Vital Signs: Last Vital Signs Temp 98.9 F 04/14/24 09:37 Pulse 94 04/14/24 10:41 Resp 20 04/14/24 10:41 BP 181/100 H 04/14/24 09:37 Pulse Ox 95 04/14/24 09:37 O2 Del Method Room Air 04/14/24 09:37 BMI result Body Mass Index 35.3 Constitutional - Awake and Alert, No apparent distress Eyes - PERRLA, EOMI Cardiovascular - S1S2, RRR, No edema Respiratory - Normal lung expansion, Normal respiratory effort, No respiratory distress, diminished expiratory wheezing bilaterally Gastrointestinal - NT / ND; +BS; No rebound or guarding Extremities - no calf tenderness bilaterally, no swelling Skin - Warm/Dry Neurological - Alert & oriented x3 Psychological - Appropriate affect Results Labs 04/14/24 10:46 04/14/24 10:46 Labs: Laboratory Results - last 24 hr 04/14/24 04/14/24 10:46 12:19 MCV 81.5 MCH 27.2 MCHC 33.3 RDW 13.7 Plt Count 313 MPV 9.6 Immature Gran % (Auto) 0.3 Neut % (Auto) 51.2 Lymph % (Auto) 39.4 [place] % (Auto) 5.7 Eos % (Auto) 2.7 Baso % (Auto) 0.7 Lymph # (Auto) 5.8 H [place] # (Auto) 0.8 Eos # (Auto) 0.4 Baso # (Auto) 0.1 Abs Immat Gran (auto) 0.04 H Absolute Neuts (auto) 7.5 Absolute Nucleated RBC 0.000 Nucleated RBC % (auto) 0.0 Smear Tech's Comments VERIFIED Anion Gap 15 Estim Creat Clear Calc 140.1 Estimated GFR > 60 Random Glucose 184 H Lactic Acid 2.4 H* Calcium 9.3 Magnesium 2.0 Total Bilirubin 1.0 Direct Bilirubin 0.3 AST 15 ALT 25 Alkaline Phosphatase 80 Troponin I High Sens < 2.7 Total Protein 7.4 Albumin 4.2 Influenza Type A (PCR) NEGATIVE Influenza Type B (PCR) NEGATIVE RSV RNA Qual (PCR) NEGATIVE SARS-CoV-2 RNA (RT-PCR) NEGATIVE Imaging Radiologist's Impressions: Impressions Chest X-Ray 04/14/24 10:00 IMPRESSION: Unremarkable examination, without interval change. Assessment and Plan (1) Acute asthma exacerbation: Qualifiers: Asthma persistence: persistent Asthma severity: severe Qualified Code(s): J45.51 - Severe persistent asthma with (acute) exacerbation Status: Acute (2) Dysphagia: Status: Acute (3) Oropharyngeal candidiasis: Status: Acute Plan 48 year old female with history of noninsulin dependent type 2 diabetes, severe persistent asthma, and severe obesity with BMI greater than 35 to be obsersved for further management of severe persistent asthma exacerbation. # severe persistent asthma with acute exacerbation -no hypoxia. Chest x-ray negative. CTA chest pending -tachycardia due to albuterol use, tachypnea related to asthma exacerbation. No sepsis -IV methylprednisolone 40 mg b.i.d. -DuoNebs q.4h while awake, albuterol p.r.n. -RPP pending -guaifenesin AC -this is patient's 5th asthma exacerbation this year. Pulmonology consult -contain new maintenance inhalers -follow CBC, cultures # dysphagia/globus sensation -has oropharyngeal candidiasis, question esophageal candidiasis secondary to recurrent prednisone use and steroid inhalers -nystatin swish and swallow -GI consult, [employer] evaluation #Hypertension -persistently hypertensive at ED visits -amlodipine 10 mg daily # acute leukocytosis -due to recent p.o. steroid use # acute lactic acidosis -due to albuterol use, no sepsis/severe sepsis # [id number] type 2 diabetes -POC glucose, diabetic diet -Humalog on sliding scale -hold metformin # severe obesity -weight loss efforts encouraged DVT prophylaxis-Lovenox Full code Quality Stroke Does the patient have a stroke diagnosis?: No VTE Prior VTE?: No VTE Risk Level:: Medical - moderate - high VTE Device Contraindication: Treatment Not Indicated VTE Drug Contraindication: N/A - Med Ordered
[2024-04-14 13:59] LABS: Appearance Urine Clear; Color Urine Yellow
[2024-04-14 14:00] LABS: Glucose Urine UA >=1000 mg/dL (Negative); Leukocyte Esterase Urine Negative (Negative); Nitrite Urine Negative (Negative); PH 5.5 (5.0-9.0); Specific Gravity - Urine >= 1.030 (1.005-1.025); UMIC TRIGGER UACC YES; Urine Blood Negative (Negative); Urine Ketones 15 mg/dL (Negative); Urine Protein Negative (Neg-Trace)
[2024-04-14 14:14] LABS: Bacteria Urine Trace (None Seen); Hyaline Casts Urine 0-2 /LPF (0-2); RBC Urine 0-2 /HPF (0-2); WBC Urine 0-5 /HPF (0-5)
[2024-04-14 14:24] LABS: Reflex Lactate? Lactic Acid Added
--- NOTE | 2024-04-14 14:27 | PHA.MEDREC ---
Pharmacy Consult ? Medication Reconciliation Pharmacy has completed the medication reconciliation. Patient no longer takes Trelegy - reports having coughing symptoms when taking and asthma exacerbation . Patient reports no longer taking ezetimibe, Semglee insulin, or singulair. Patient reports getting Xolair Q2W and has one dose of prednisone 20 mg left (Added in med rec).
[2024-04-14] MEDS: iohexoL 350 MG/ML 100 ML INFUS..BTL IV (14:38)
[2024-04-14 15:35] LABS: ~Lactic Acid-LAB USE ONLY 2.4 mmol/L (0.5-2.0)
[2024-04-14 15:42] LABS: B Type Natriuretic Peptide 11 pg/mL (<100)
[2024-04-14 16:02] LABS: ABG Base Excess -4.1 mmol/L; ABG HCO3 18 mmol/L (22-26); ABG pCO2 26 mmHg (32-45); ABG pH 7.44 (7.35-7.45); ABG pO2 105 mmHg (83-108)
--- NOTE | 2024-04-14 16:13 | PM.EVENT ---
Event Note Date of Service: 04/14/24 Event Note: GI Consult-Full note dictated-History via patient and EMR Imp: Although I don't see any definitive evidence of oral thrush, I would recommend treating her for presumed esophageal candidiasis given her symptomatology and her risk factors of diabetes, antibiotics, and steroids. Rec: IV Diflucan while an inpatient and then finish course of po at home. Will also add an IV PPI while an inpatient. If not better by next week I would recommend an upper endoscopy either as an inpatient or outpatient, depending on the situation. D/W patient in detail. She is comfortable with this plan. Thanks Time Spent With Patient Time: Total time managing care of this patient today ____ minutes.
[2024-04-14] MEDS: guaiFEN/Codeine SF 200/20/10ML 10 ML LIQUID 5 ML PO ×2 (16:17→19:11)
[2024-04-14] MEDS: amLODIPine Besylate 5 MG TABLET PO (16:17)
[2024-04-14] MEDS: Loratadine 10 MG TABLET PO (16:17)
[2024-04-14] MEDS: Albuterol/Iprat 2.5/0.5MG 3 ML AMPUL.NEB INHALE ×2 (16:17→19:09)
[2024-04-14] MEDS: Enoxaparin Sodium 40 MG/0.4 ML SYRINGE SUBCUT (16:19)
[2024-04-14] MEDS: Nystatin Oral Susp 500,000 UNIT/5 ML ORAL.SUSP 400000 UNIT PO ×3 (16:21→22:09)
[2024-04-14] MEDS: 0.9 % Sodium Chloride Flush 3 ML SYRINGE IVFLUSH ×2 (16:24→22:11)
--- NOTE | 2024-04-14 16:42 | PM.CNPUL ---
History of Present Illness History of Present Illness Consult date: 04/14/24 Chief complaint: asthma exacerbation, dysphagia Narrative: 48-year-old lady, nonsmoker, with underlying history of obesity, diabetes mellitus, hypertension, and asthma on Xolair/Trelegy admitted on 04/14/2024 with complains of dyspnea with productive cough for 1 month's duration and treated for empiric asthma exacerbation/bronchitis with nebulized bronchodilators, systemic glucocorticoids, and doxycycline. On my exam patient has no respiratory difficulties, saturating in mid 90s on room air, and has no expiratory wheezing or increased work of breathing. Review of Systems Constitutional: Constitutional: Denies daytime sleepiness, Denies excessive sweating, Denies fatigue, Denies fever(s), Denies lethargy, Denies malaise, Denies night sweats, Denies snoring and Denies weight loss Eyes: Eyes: Denies blurry vision and Denies itchy eyes ENT: Denies nasal congestion, Denies post nasal drip, Denies sinus pain, Denies sinus pressure and Denies other ( Thrush) Cardiovascular: Cardiovascular: Denies chest pain, Denies pedal edema, Denies dyspnea, Reports dyspnea on exertion, Denies orthopnea and Denies paroxysmal nocturnal dyspnea Respiratory: Respiratory: Denies cough, Denies hemoptysis, Denies excessive phlegm production, Denies dyspnea, Reports dyspnea on exertion, Denies snoring and Reports wheezing Gastrointestinal: Gastrointestinal: Denies abdominal pain and Denies heartburn Musculoskeletal: Musculoskeletal: Denies myalgias, Denies arthralgias and Denies joint swelling Integumentary/Breasts: Skin/Breast: Denies rash Neurologic: Denies memory loss and Denies seizure-like activity Psychiatric: Psychiatric: Denies abnormal sleep pattern, Denies anxiety and Denies memory loss Endocrine: Endocrine: Denies excessive sweating, Denies fatigue and Denies heat intolerance Hematologic/Lymphatic: Hematologic/Lymphatic: Denies easy bruising Allergic/Immunologic: Allergic/Immunologic: Denies itchy eyes, Denies seasonal rhinorrhea and Reports wheezing PMFSH Past Medical History Medical History Eosinophilia Obesity due to excess calories Vitamin D deficiency Diabetic 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 with type 2 diabetes mellitus 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 Diabetes type 2, uncontrolled Ectopic Hyperlipidemia Hypertension Diabetes Asthma Family History Family History Father Diabetes mellitus Stomach cancer Mother Diabetes mellitus Ovarian cancer Paternal Grandfather Colon cancer Paternal Aunt Liver cancer Paternal Aunt Liver cancer Surgical History Surgical History History of esophagogastroduodenoscopy (EGD) Hx of colonoscopy History of surgical procedure on mouth Hx of ectopic Social History Social History Household Members: Family Housing: House Do you presently have visiting nurse or other home services: No Alcohol intake: never Patient Tobacco Use Status: Never used Tobacco Smoked in Last 30 Days: No Use of substances other than those prescribed or required for medical reasons: No Advance Directives: Yes Advance Directives on File: Yes Advance Directives Date on File: 07/15/22 Nutrition Risks: No Nutritional Risk service: No Current occupational status: employed Meds Allergies Allergy/AdvReac Type Severity Reaction Status Date / Time canagliflozin [Invokana] Allergy Unknown rash Verified 04/14/24 09:42 liraglutide Allergy Unknown rash Verified 04/14/24 09:42 animals Allergy Unknown rash Uncoded 04/14/24 09:42 Pt states no known food Allergy Unknown Unknown Uncoded 04/14/24 09:42 allerg Active Medications: Current Medications Acetaminophen (Acetaminophen 325 Mg Tablet) 650 mg PO Q6H PRN PRN Reason: Pain, Mild (Pain Scale 1-3) Albuterol Sulfate (Albuterol Sulfate (0.083%) 2.5 Mg/3 Ml Vial.Neb) 2.5 mg INHALE Q2H PRN PRN Reason: Shortness of Breath/Wheezing Albuterol/Ipratropium (Albuterol/Iprat 2.5/0.5mg 3 Ml Ampul.Neb) 3 ml INHALE RQ4H WHILE AWAKE SIXTO Last Admin: 04/14/24 16:17 Dose: 3 ml Amitriptyline HCl (Amitriptyline Hcl 25 Mg Tablet) 25 mg PO BEDTIME SIXTO Amlodipine Besylate (Amlodipine Besylate 5 Mg Tablet) 5 mg PO DAILY SIXTO; Protocol Last Admin: 04/14/24 16:17 Dose: 5 mg Amlodipine Besylate (Amlodipine Besylate 10 Mg Tablet) 10 mg PO DAILY [facility]; Protocol Atorvastatin Calcium (Atorvastatin Calcium 80 Mg Tablet) 80 mg PO DAILY [facility] Enoxaparin Sodium (Enoxaparin Sodium 40 Mg/0.4 Ml Syringe) 40 mg SUBCUT Q24H [facility] Last Admin: 04/14/24 16:19 Dose: 40 mg Ergocalciferol (Ergocalciferol (Vitamin D2) 1,250 Mcg Capsule) 1,250 mcg PO WE@0900 [facility] Glucose (Glucose Gel 15 Gm Gel..Gram.) 15 gm PO Q15M PRN; Protocol PRN Reason: per Hypoglycemia Standing Ord. Guaifenesin/Codeine Phosphate (Guaifen/Codeine Sf 200/20/10ml 10 Ml Liquid) 5 ml PO Q6H [facility] Last Admin: 04/14/24 16:17 Dose: 5 ml Dextrose (D10) 250 mls @ 750 mls/hr IV Q15M PRN; Protocol PRN Reason: per Hypoglycemia Standing Ord. Fluconazole (Diflucan) 200 mg in 100 mls @ 100 mls/hr IV ONCE ONE Stop: 04/14/24 17:29 Fluconazole 100 mg/ IV (Miscellaneous Supplies) 50 mls @ 50 mls/hr IV Q24H [facility] Insulin Human Lispro (Insulin Lispro 100 Unit/Ml 3 Ml Vial) 0 unit SUBCUT QIDACHS [facility]; Protocol Loratadine (Loratadine 10 Mg Tablet) 10 mg PO DAILY [facility] Last Admin: 04/14/24 16:17 Dose: 10 mg Magnesium Hydroxide (Milk Of Magnesia 30 Ml Oral.Susp) 30 ml PO DAILY PRN PRN Reason: Constipation Methylprednisolone Sodium Succinate (Methylprednisolone Sod Succ 40 Mg/Ml Vial) 40 mg IVPUSH Q12H [facility] Nystatin (Nystatin Oral Susp 500,000 Unit/5 Ml Oral.Susp) 400,000 unit PO QID [facility]; Protocol Last Admin: 04/14/24 16:21 Dose: 400,000 unit Ondansetron HCl (Ondansetron Hcl 4 Mg/2 Ml Vial) 4 mg IVPUSH Q8H PRN PRN Reason: Nausea and Vomiting Pantoprazole Sodium (Pantoprazole Sodium 40 Mg/10 Ml Vial) 40 mg IVPUSH BID@0630,1630 [facility] Sodium Chloride (0.9 % Sodium Chloride Flush 3 Ml Syringe) 3 ml IVFLUSH QSHIFT [facility] Last Admin: 04/14/24 16:24 Dose: 3 ml Home Medications ?Medication ?Instructions ?Recorded ?Confirmed ?Last Taken ?Type amlodipine 10 mg tablet 10 mg PO DAILY 12/12/20 04/14/24 04/14/24 09:00 History amitriptyline 25 mg tablet 1 tab PO BEDTIME 07/14/22 04/14/24 02/25/23 History metformin 1,000 mg tablet 1 tab PO BIDWM 07/29/22 04/14/24 04/14/24 09:00 History albuterol sulfate 2.5 mg/3 mL 2.5 mg inhalation BID PRN 08/08/22 04/14/24 Unknown History (0.083 %) solution for nebulization Shortness Of Breath Or Wheezing blood sugar diagnostic (FreeStyle 08/08/22 06/04/23 Unknown History Lite Strips) albuterol sulfate 90 mcg/actuation 2 puff inhalation Q6H PRN 04/14/24 04/14/24 Unknown History aerosol inhaler shortness of breath or wheezing ergocalciferol (vitamin D2) 1,250 1,250 mcg PO WE@0904/14/24 04/14/24 04/13/24 History mcg (50,000 unit) capsule prednisone 20 mg tablet 20 mg PO ONCE 04/14/24 04/14/24 Unknown History tirzepatide 10 mg/0.5 mL 10 mg subcut SA@0904/14/24 04/14/24 Unknown History subcutaneous pen injector (Homarundanisha) Physical Exam Vital Signs: Vital Signs: Last Vital Signs Temp 97.5 F 04/14/24 16:22 Pulse 96 04/14/24 16:22 Resp 18 04/14/24 16:22 BP 158/98 H 04/14/24 16:22 Pulse Ox 95 04/14/24 16:22 O2 Del Method Room Air 04/14/24 16:22 BMI result Body Mass Index 35.3 Const: General: no acute distress and alert Nutritional Appearance: obese Orientation/consciousness: Other orientation findings ( oriented) HEENT: Head: Yes atraumatic Eyes: General: appearance normal, both eyes and all related structures Sclerae: sclerae normal EOM: EOMs intact bilaterally Neck: Neck: Yes supple Lymphatic: no lymphadenopathy noted Resp: Effort & Inspection: normal respiratory effort and no use of accessory muscles Auscultation: clear to auscultation bilaterally Cardio: Rate: regular rate Rhythm: regular rhythm Heart sounds: no gallops, no murmurs and no rubs Skin: General skin exam: other ( warm) Extrem: General: No clubbing, No cyanosis and No edema Results Laboratory Findings 04/14/24 10:46 04/14/24 10:46 Abnormal lab findings: Abnormal Labs 04/14/24 04/14/24 04/14/24 10:46 12:19 13:50 WBC 14.6 H RBC 5.85 H Hct 47.7 H Lymph # (Auto) 5.8 H Abs Immat Gran (auto) 0.04 H ABG pCO2 at Pt Temp ABG HCO3 Random Glucose 184 H Lactic Acid 2.4 H* Lactic Acid F/U @ 2Hr Ur Specific [place] >= 1.030 H Urine Glucose (UA) >=1000 H 04/14/24 04/14/24 15:16 15:53 WBC RBC Hct Lymph # (Auto) Abs Immat Gran (auto) ABG pCO2 at Pt Temp 26 L ABG HCO3 18 L Random Glucose Lactic Acid Lactic Acid F/U @ 2Hr 2.4 H* Ur Specific [place] Urine Glucose (UA) Assessment and Plan (1) Asthma: Status: Acute (2) Environmental allergies: Status: Acute (3) Anxiety: Status: Acute Plan Impression: 48-year-old lady with underlying asthma and environmental allergies admitted with dyspnea in treated empirically for asthma exacerbation and bronchitis. On exam appears to be at baseline. Symptoms may be masked by significant amount of nebulized bronchodilators patient has received before exam or may be related to underlying anxiety. Recommendations: Agree with current regimen of nebulized bronchodilators and systemic glucocorticoids with rapid taper. CT angio chest is negative for pulmonary emboli or pneumonia, consider discontinuation of doxycycline. Procedures Date of Service Date of Service: 04/14/24
[2024-04-14 17:21] LABS: Reflex Lactate? 2 Y
[2024-04-14 17:51] LABS: ~Lactic Acid-LAB USE ONLY 1.8 mmol/L (0.5-2.0)
[2024-04-14 18:02] LABS: Glucose, Whole Blood 247 mg/dL (60-115)
--- NOTE | 2024-04-14 18:04 | PC.NURSE ---
called pharmacy for IV fluconazole, they will mix and bring to ED
[2024-04-14] MEDS: Insulin Lispro 100 UNIT/ML 3 ML VIAL SUBCUT ×2 (18:11→21:09)
[2024-04-14 18:12] LABS: ABG Refer to POC result
[2024-04-14] MEDS: Pantoprazole Sodium 40 MG/10 ML VIAL IVPUSH (18:12)
--- NOTE | 2024-04-14 18:24 | PC.NURSE ---
pt reporting difficulty swallowing. nursing swallow screen pass. gi consult ordered. called kitchen for mashed potatoes per pt request
[2024-04-14] MEDS: Fluconazole in NaCl,Iso-Osm 200 MG/100 ML PIGGYBACK 100 MG IV (19:12)
[2024-04-14 20:37] LABS: Glucose, Whole Blood 294 mg/dL (60-115)
[2024-04-14] MEDS: Amitriptyline HCl 25 MG TABLET PO (22:09)
[2024-04-14] MEDS: methylPREDNISolone Sod Succ 40 MG/ML VIAL IVPUSH (22:11)
[2024-04-15] VITALS (10 sets, daily range): BP systolic 122–157; BP diastolic 69–83; PULSE 77–100; RESP 12–20; TEMP 36–36.5; O2SAT 93–99
[2024-04-15] MEDS: guaiFEN/Codeine SF 200/20/10ML 10 ML LIQUID 5 ML PO ×3 (00:43→12:56)
--- NOTE | 2024-04-15 03:14 | CONS_ITS ---
DATE OF SERVICE: 04/14/2024 REASON FOR CONSULTATION: Odynophagia and dysphagia. HISTORY OF PRESENT ILLNESS: This has been obtained from the patient and the medical record. Patient is a 48-year-old female, being admitted to the hospital with asthma. She has had a difficult course with her asthma over at least the past few weeks, requiring different courses of antibiotics and steroids. She also has underlying diabetes. Over the past 2 weeks, she has noted the onset of odynophagia and some dysphagia localized to the region of her throat and sternal notch area. She describes that she is able to swallow liquids and some solids, but it is difficult due to primarily discomfort when she tries to swallow. She has not had this problem in the past up until just the past 2 weeks. She denies any chronic reflux at home. She is hungry, but has been unable to really take adequate p.o.'s because of this problem. She denies ever having had a GI series or upper endoscopy. MEDICATIONS: At home included a course of prednisone that was just finished yesterday by her description. She was also on amlodipine, amitriptyline, metformin, albuterol inhaler, vitamin D, and Mounjaro. PAST MEDICAL HISTORY: Diabetes mellitus. Asthma. Obesity. Vitamin D deficiency. Surgery for ectopic . Hypertension. Hyperlipidemia. 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 She does not smoke nor use any significant amounts of alcohol. She is . FAMILY HISTORY: Noncontributory. REVIEW OF SYSTEMS: CONSTITUTIONAL: She is feeling fatigued and with a somewhat diminished appetite. CARDIAC: No chest pain. PULMONARY: Trouble with her asthma, but no hemoptysis. GI: Upper GI complaints as above. She denies any signs of bleeding. She denies any jaundice nor abdominal pain. URINARY: No dysuria. No hematuria. NEUROLOGIC: No headache or seizures. PHYSICAL EXAMINATION: GENERAL: The patient is a pleasant alert female, in no distress. SKIN: Warm and dry. HEENT: Anicteric sclerae. Moist mucous membranes. I do not visualize any sign of definitive oral thrush. NECK: Supple. CHEST: Reveals bilateral wheezing. CARDIAC: Normal S1, S2. ABDOMEN: Soft, nondistended, nontender without palpable mass. LABORATORY DATA: White blood cell count 14.6, hemoglobin 15.9, platelets 213,000. Normal electrolytes. BUN 9, creatinine 0.6. Normal LFTs. Lactic acid level 2.4. CT angiogram of her chest was negative for any sign of pulmonary embolus nor other pathology. Chest x-ray was unremarkable. IMPRESSION: Given the patient's clinical history of underlying diabetes, relatively chronic prednisone use at least recently, and some recent antibiotic use, I suspect the cause of her odynophagia and some dysphagia is related to esophageal candidiasis. While she does not have any signs of oral thrush, this does not rule out the possibility of esophageal candidiasis given the clinical scenario. As such, I would recommend treating her with IV Diflucan at least while she is in the hospital and hopefully that will improve things in the short term. I would then have her be discharged on an oral course of Diflucan to finish the treatment. I would also start her on some IV PPI while she is in the hospital. If she improves while in the hospital, I do not think she needs to be discharged on a PPI. I would allow her diet as tolerated. I do not think she needs an upper endoscopy immediately, but certainly if she is not better within the next several days, I would then recommend an upper endoscopy for further and definitive evaluation. Depending upon her clinical course in regard to the asthma, this could be done either as an inpatient or outpatient. However, if she improves on the Diflucan, then she would not need an upper endoscopy. This has been discussed with the patient in detail and she is comfortable with the plan. Thank you for the consultation. MD RADHA Pop/JOHN / [phone]
[2024-04-15] MEDS: Pantoprazole Sodium 40 MG/10 ML VIAL IVPUSH ×2 (05:26→16:47)
--- NOTE | 2024-04-15 07:00 | CA_ITS ---
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 The calculated ejection fraction is 65% by biplane method. - No obvious valvular pathology seen on this study. Findings Left Ventricle Normal left ventricular cavity size. There is mildly increased left ventricular wall thickness. The left ventricular systolic function is normal. The calculated ejection fraction is 65% by biplane method. There is no evidence of regional wall motion abnormalities. Diastolic function is normal for age. Right Ventricle Normal right ventricular cavity size and systolic function. Atria Both atria are normal in size. Aortic Valve There is a normal trileaflet aortic valve. There is no aortic valve stenosis. There is no aortic valve regurgitation. Mitral Valve The mitral valve appears normal. There is no mitral valve regurgitation. There is no mitral valve stenosis. Pulmonic Valve The pulmonic valve is likely normal. Tricuspid Valve Normal tricuspid valve structure. There is trace tricuspid valve regurgitation. There is no evidence of pulmonary hypertension. Great Vessels The asc aorta is normal in size. Venous The inferior vena cava is normal in size and collapses greater than 50% with inspiration. Pericardium/Pleural There is no evidence of pericardial effusion. Prior Study Comparison Changes noted compared to prior study dated: 09/03/2022. LVEF slightly higher. Recommendations, Care & Conclusions No obvious valvular pathology seen on this study. Measurements 2D Linear Measurements IVSd: 1.13 0.6-0.9/0.6-1.0 cm LVIDd: 4.73 3.9-5.3/4.2-5.9 cm LVIDd Index: 2.24 2.4-3.2/2.2-3.1 cm/m2 LVIDs: 2.86 2.0-3.6 cm LVPWd: 1.13 0.7-1.1 cm Ao Root: 3.00 2.1-3.5 cm LA Diam: 3.70 2.7-3.8/3.0-4.0 cm LAIDs Index: 1.75 1.5-2.3 cm/m2 LV Mass: 245.14 67-162/88-224 g LV Mass Index: 116.18 43-95/49-115 g/m2 LVOT Diam: 2.30 3.0+(-)1.3 cm 2D Systolic Function EF 4C: 66.00 >55% EF 2C: 58.10 >55% EF BiP: 65.20 >55% Mitral Valve MV Pk E: 0.69 MV PK A: 0.69 MV Decel Time: 207.00 E/A: 1.00 E'Lateral: 10.20 E'Medial: 6.85 E/E' Med: 10.10 E/E' Lat: 6.80 PHT: 61.00 MVA PHT: 3.61 Decel [place]: 3.33 Aortic Valve AoV Pk Gutierrez: 1.36 AoV Pk Grad: 7.00 LVOT LVOT Pk Gutierrez: 0.93 LVOT Mn Gutierrez: 0.60 LVOT VTI: 0.21 LVOT Pk Grad: 3.00 LVOT Mn Grad: 2.00 LVOT Diam: 2.30 LVOT Area: 4.15 Diastolic Function MV Pk E: 0.69 MV Pk A: 0.69 E/A: 1.00 E'Medial: 6.85 E/E' Med: 10.10 E' Laterial: 10.20 E/E' Lat: 6.80 Right Ventricle TAPSE (mm): 26.00 TVS' Gutierrez: 12.00 Tricuspid Valve TR Pk Gutierrez: 1.68 TR Pk Grad: 11.00 RA Press: 3.00 RVSP: 14.00 Great Vessels Aorta Ao Root-2D: 3.00 2.0-3.7 cm Ao Asc: 3.10 2.1-3.4 cm Pulmonary Valve PV Pk Gutierrez: 0.98 Peak PV Grad: 4.00 Updated in Other Vendor System with Status of Final Isai Iyer MD electronically signed on 04/15/2024 11:25:02 AM with status of Final
[2024-04-15 07:38] LABS: Glucose, Whole Blood 165 mg/dL (60-115)
[2024-04-15] MEDS: Albuterol/Iprat 2.5/0.5MG 3 ML AMPUL.NEB INHALE ×4 (07:40→20:19)
[2024-04-15] MEDS: Insulin Lispro 100 UNIT/ML 3 ML VIAL SUBCUT ×4 (08:48→21:04)
[2024-04-15] MEDS: methylPREDNISolone Sod Succ 40 MG/ML VIAL IVPUSH ×3 (08:50→21:03)
[2024-04-15] MEDS: 0.9 % Sodium Chloride Flush 3 ML SYRINGE IVFLUSH ×3 (08:50→21:05)
[2024-04-15] MEDS: Atorvastatin Calcium 80 MG TABLET PO (08:52)
[2024-04-15] MEDS: amLODIPine Besylate 5 MG TABLET PO (08:52)
[2024-04-15] MEDS: Loratadine 10 MG TABLET PO (08:52)
[2024-04-15] MEDS: amLODIPine Besylate 10 MG TABLET PO (08:52)
[2024-04-15] MEDS: Nystatin Oral Susp 500,000 UNIT/5 ML ORAL.SUSP 400000 UNIT PO ×4 (08:57→21:03)
[2024-04-15 09:08] LABS: Adenovirus PCR Not Detected (Not Detect.); Bordetella parapertussis PCR Not Detected (Not Detect.); Bordetella pertussis PCR Not Detected (Not Detect.); Chlamydia pneumoniae PCR Not Detected (Not Detect.); Coronavirus 229E PCR Not Detected (Not Detect.); Coronavirus HKU1 PCR Not Detected (Not Detect.); Coronavirus NL63 PCR Not Detected (Not Detect.); Coronavirus OC43 PCR Not Detected (Not Detect.); Human metapneumovirus PCR Not Detected (Not Detect.); Influenza A PCR Not Detected (Not Detect.); Influenza B PCR Not Detected (Not Detect.); Mycoplasma pneumoniae PCR Not Detected (Not Detect.); Parainfluenza 1 PCR Not Detected (Not Detect.); Parainfluenza 2 PCR Not Detected (Not Detect.); Parainfluenza 3 PCR Not Detected (Not Detect.); Parainfluenza 4 PCR Not Detected (Not Detect.); RSV PCR Not Detected (Not Detect.); Rhino/Enterovirus PCR Not Detected (Not Detect.)
[2024-04-15 10:47] LABS: SARS-CoV-2 PCR Not Detected (Not Detect.)
--- NOTE | 2024-04-15 11:09 | MHC.CM.PN ---
Addendum entered by Funmi Phelan RN 04/15/24 11:14: PATIENT HAS A NEBULIZER. HCP ON FILE AND VERIFIED. Original Note: [facility] DELIVERED. PATIENT LIVES IN A HOME W/ HER DAUGHTER. FUNCTIONALLY INDEPENDENT MOST TIMES, USES [facility] PR[facility] WHEN SOB. NO SERVICES. PCP JOSEF PATTERSON MD DP: GOAL IS HOME SELF CARE VIA FAMILY TRANSPORT. MAY NEED LYFT. CM WILL CONTINUE TO FOLLOW.
[2024-04-15 11:21] LABS: Glucose, Whole Blood 236 mg/dL (60-115)
--- NOTE | 2024-04-15 12:34 | MHC.SL.SWA ---
Speech Pathologist Impression:Reported odynophagia Risk of Aspiration Due to: None Dysphasia Diet Status: No changes at this time Liquid Consistency and Strategies for Safe Swallow: Liquid Intake Recommendation: Thin Liquid Intake Strategies: Unrestricted Solid Food Consistency: Dietary Recommendations: Regular Additional Modifications to Solid Foods: Self-select soft, easier to chew foods d/t odynophagia Oral Medication Intake: Whole with Liquid Please contact the pharmacy regarding appropriate crushable or liquid drug formulations that are available whenever modified delivery is recommended. Compensatory Strategies and Precautions to be Taken for Safe Swallow: Sitting Upright (90 deg) Small Bites and Sips Alternate Liquids/Solids Rate of Ingestion Change Supervision While Eating and Drinking for Safe Swallow: Intermittent Supervision Swallowing Recommended Treatments: Compens. Strategy Educat. Recommendation for Speech: Inpatient Speech Therapy Comment: Patient with odynophagia, being treated by G.I. for esophageal candidiasis w/ IV Diflucan. Patient's Chest CTA was unremarkable for acute processes. No difficulties noted with bedside swallow exam either, though patient did decline hard solids due to anticipated pain. RN BEHAVIORAL HEALTH to f/u during hospitalization to monitor patient's tolerance of PO diet. If dysphagia symptoms persist after patient completes course of Diflucan, she may benefit from further evaluation w/ MBSS. Frequency/Duration: Date Range for Service Req: Timeline to reassess: Area Loss Prevention Manager Clinican/Clinical Fellow: No Supervisory Statement: I have reviewed and agree with the student/clinical fellow's documentation: N/A Speech Language Pathologist: Caroline Acuna M.A., [facility]-RN BEHAVIORAL HEALTH
[2024-04-15] MEDS: Enoxaparin Sodium 40 MG/0.4 ML SYRINGE SUBCUT (12:56)
--- NOTE | 2024-04-15 15:02 | P.PNIM_ITS ---
Subjective Subjective Date of Service: 04/15/24 Interval History: severe persistent asthma with acute exacerbation possible esophagitis Review of Systems sob seems similar swallow difficulty somewhat improving no fever or chills Physical Exam 2 Vital Signs: Vital Signs: Last Vital Signs Temp 97.7 F 04/15/24 12:00 Pulse 100 04/15/24 12:00 Resp 12 04/15/24 12:00 BP 157/69 H 04/15/24 12:00 Pulse Ox 95 04/15/24 12:00 O2 Del Method Room Air 04/15/24 12:00 BMI result Body Mass Index 36.2 Appearance: Alert.? Oriented X3.? thorat -no much oral thrush cvs: rrr, [id number]. res: air enrty diminshed ,b/l wheezing abd: no rebound or guarding ,nt, bs present. ext pulses present , no cyanosis . neuro: axo3 , nonfocal. Objective Data Active Medications Acetaminophen (Acetaminophen 325 Mg Tablet) 650 mg PO Q6H PRN PRN Reason: Pain, Mild (Pain Scale 1-3) Albuterol Sulfate (Albuterol Sulfate (0.083%) 2.5 Mg/3 Ml Vial.Neb) 2.5 mg INHALE Q2H PRN PRN Reason: Shortness of Breath/Wheezing Albuterol/Ipratropium (Albuterol/Iprat 2.5/0.5mg 3 Ml Ampul.Neb) 3 ml INHALE RQ4H WHILE AWAKE [facility] Last Admin: 04/15/24 11:58 Dose: 3 ml Documented By: MARILYNN Amitriptyline HCl (Amitriptyline Hcl 25 Mg Tablet) 25 mg PO BEDTIME SIXTO Last Admin: 04/14/24 22:09 Dose: 25 mg Documented By: ROSEMARY Amlodipine Besylate (Amlodipine Besylate 5 Mg Tablet) 5 mg PO DAILY [facility]; Protocol Last Admin: 04/15/24 08:52 Dose: 5 mg Documented By: FÉLIX Amlodipine Besylate (Amlodipine Besylate 10 Mg Tablet) 10 mg PO DAILY [facility]; Protocol Last Admin: 04/15/24 08:52 Dose: 10 mg Documented By: FÉLIX Atorvastatin Calcium (Atorvastatin Calcium 80 Mg Tablet) 80 mg PO DAILY [facility] Last Admin: 04/15/24 08:52 Dose: 80 mg Documented By: FÉLIX Enoxaparin Sodium (Enoxaparin Sodium 40 Mg/0.4 Ml Syringe) 40 mg SUBCUT Q24H [facility] Last Admin: 04/15/24 12:56 Dose: 40 mg Documented By: FÉLIX Ergocalciferol (Ergocalciferol (Vitamin D2) 1,250 Mcg Capsule) 1,250 mcg PO WE@0900 [facility] Glucose (Glucose Gel 15 Gm Gel..Gram.) 15 gm PO Q15M PRN; Protocol PRN Reason: per Hypoglycemia Standing Ord. Guaifenesin/Codeine Phosphate (Guaifen/Codeine Sf 200/20/10ml 10 Ml Liquid) 5 ml PO Q6H [facility] Last Admin: 04/15/24 12:56 Dose: 5 ml Documented By: FÉLIX Dextrose (D10) 250 mls @ 750 mls/hr IV Q15M PRN; Protocol PRN Reason: per Hypoglycemia Standing Ord. Fluconazole 100 mg/ IV (Miscellaneous Supplies) 50 mls @ 50 mls/hr IV Q24H [facility] Insulin Human Lispro (Insulin Lispro 100 Unit/Ml 3 Ml Vial) 0 unit SUBCUT QIDACHS [facility]; Protocol Last Admin: 04/15/24 11:20 Dose: 2 unit Documented By: FÉLIX Loratadine (Loratadine 10 Mg Tablet) 10 mg PO DAILY [facility] Last Admin: 04/15/24 08:52 Dose: 10 mg Documented By: FÉLIX Magnesium Hydroxide (Milk Of Magnesia 30 Ml Oral.Susp) 30 ml PO DAILY PRN PRN Reason: Constipation Methylprednisolone Sodium Succinate (Methylprednisolone Sod Succ 40 Mg/Ml Vial) 40 mg IVPUSH Q12H [facility] Last Admin: 04/15/24 08:50 Dose: 40 mg Documented By: FÉLIX Nystatin (Nystatin Oral Susp 500,000 Unit/5 Ml Oral.Susp) 400,000 unit PO QID [facility]; Protocol Last Admin: 04/15/24 12:56 Dose: 400,000 unit Documented By: FÉLIX Ondansetron HCl (Ondansetron Hcl 4 Mg/2 Ml Vial) 4 mg IVPUSH Q8H PRN PRN Reason: Nausea and Vomiting Pantoprazole Sodium (Pantoprazole Sodium 40 Mg/10 Ml Vial) 40 mg IVPUSH BID@0630,1630 [facility] Last Admin: 04/15/24 05:26 Dose: 40 mg Documented By: ROSEMARY Sodium Chloride (0.9 % Sodium Chloride Flush 3 Ml Syringe) 3 ml IVFLUSH QSHIFT [facility] Last Admin: 04/15/24 08:50 Dose: 3 ml Documented By: FÉLIX Labs 04/14/24 10:46 04/14/24 10:46 Labs: Laboratory Results - last 24 hr 04/14/24 04/14/24 04/14/24 15:16 15:53 17:33 O2 Saturation 99.0 ABG pH at Pt Temp 7.44 ABG pCO2 at Pt Temp 26 L ABG pO2 at Pt Temp 105 ABG HCO3 18 L ABG Base Excess (Actual) -4.1 POC Glucose Lactic Acid F/U @ 2Hr 2.4 H* Lactic Acid F/U @ 4Hr 1.8 B-Natriuretic Peptide 11 Respiratory Panel Turcios See Note Adenovirus (Rapid PCR) Not Detected B.pert (TEM-PCR) Not Detected B.parapertussis DNA PCR Not Detected C. pneumoniae DNA (PCR) Not Detected Coronavirus OC43 (PCR) Not Detected Coronavirus HKU1 (PCR) Not Detected Coronavirus 229E (PCR) Not Detected Coronavirus NL63 (PCR) Not Detected Human Metapneumovir PCR Not Detected Influenza A (RT-PCR) Not Detected Influenza B (RT-PCR) Not Detected M. pneumoniae (PCR) Not Detected Parainfluenza 1 (PCR) Not Detected Parainfluenza 2 (PCR) Not Detected Parainfluenza 3 (PCR) Not Detected Parainfluenza 4 (PCR) Not Detected RSV (PCR) Not Detected Entero/Rhino (PCR) Not Detected SARS-CoV-2 RNA (RT-PCR) Not Detected 04/14/24 04/14/24 04/15/24 17:58 20:34 07:10 O2 Saturation ABG pH at Pt Temp ABG pCO2 at Pt Temp ABG pO2 at Pt Temp ABG HCO3 ABG Base Excess (Actual) POC Glucose 247 H 294 H 165 H Lactic Acid F/U @ 2Hr Lactic Acid F/U @ 4Hr B-Natriuretic Peptide Respiratory Panel Turcios Adenovirus (Rapid PCR) B.pert (TEM-PCR) B.parapertussis DNA PCR C. pneumoniae DNA (PCR) Coronavirus OC43 (PCR) Coronavirus HKU1 (PCR) Coronavirus 229E (PCR) Coronavirus NL63 (PCR) Human Metapneumovir PCR Influenza A (RT-PCR) Influenza B (RT-PCR) M. pneumoniae (PCR) Parainfluenza 1 (PCR) Parainfluenza 2 (PCR) Parainfluenza 3 (PCR) Parainfluenza 4 (PCR) RSV (PCR) Entero/Rhino (PCR) SARS-CoV-2 RNA (RT-PCR) 04/15/24 11:10 O2 Saturation ABG pH at Pt Temp ABG pCO2 at Pt Temp ABG pO2 at Pt Temp ABG HCO3 ABG Base Excess (Actual) POC Glucose 236 H Lactic Acid F/U @ 2Hr Lactic Acid F/U @ 4Hr B-Natriuretic Peptide Respiratory Panel Turcios Adenovirus (Rapid PCR) B.pert (TEM-PCR) B.parapertussis DNA PCR C. pneumoniae DNA (PCR) Coronavirus OC43 (PCR) Coronavirus HKU1 (PCR) Coronavirus 229E (PCR) Coronavirus NL63 (PCR) Human Metapneumovir PCR Influenza A (RT-PCR) Influenza B (RT-PCR) M. pneumoniae (PCR) Parainfluenza 1 (PCR) Parainfluenza 2 (PCR) Parainfluenza 3 (PCR) Parainfluenza 4 (PCR) RSV (PCR) Entero/Rhino (PCR) SARS-CoV-2 RNA (RT-PCR) Microbiology Microbiology Results: Microbiology 04/14/24 12:19 Blood Culture - Preliminary Blood - Venous No growth after 24 hours. 04/14/24 12:19 Blood Culture - Preliminary Blood - Venous No growth after 24 hours. Assessment and Plan (1) Oropharyngeal candidiasis: Status: Acute (2) Dysphagia: Status: Acute (3) Acute asthma exacerbation: Status: Acute Assessment and Plan: 48 year old female with history of noninsulin dependent type 2 diabetes, severe persistent asthma, and severe obesity with BMI greater than 35 to be obsersved for further management of severe persistent asthma exacerbation. severe persistent asthma with acute exacerbation no hypoxia. Chest x-ray negative. CTA chest negative. respiratory viral panel -negative. multiple exceerbation tachycardia due to albuterol use, tachypnea related to asthma exacerbation. 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 Hypertension -persistently hypertensive at ED visits -amlodipine 10 mg daily acute leukocytosis -due to recent p.o. steroid use acute lactic acidosis -due to albuterol use, no sepsis/severe sepsis [id number] type 2 diabetes -POC glucose, diabetic diet -Humalog on sliding scale -hold metformin severe obesity -weight loss efforts encouraged DVT prophylaxis-Lovenox Full code Ongoing need of hospitalization for severe asthma exacerbation and possible esophageal candidiasis-need IV steroids, IV fluconazole and PPI and monitoring for respiratory/GI status , pulmonary follow-up. Quality Stroke Does the patient have a stroke diagnosis?: No VTE Prior VTE?: No VTE Risk Level:: Medical - moderate - high VTE Device Contraindication: Treatment Not Indicated VTE Drug Contraindication: N/A - Med Ordered
[2024-04-15 15:35] LABS: Glucose, Whole Blood 257 mg/dL (60-115)
[2024-04-15] MEDS: Fluconazole in NaCl,Iso-Osm 100 MG in Container,Empty 0 ML 50 MG IV (15:40)
[2024-04-15] MEDS: diphenhydrAMINE HCL 25 MG CAPSULE PO (16:43)
--- NOTE | 2024-04-15 16:46 | P.PNPL_ITS ---
Subjective Subjective Date of Service: 04/15/24 Interval history: Respiratory status at baseline. Objective Data Labs 04/14/24 10:46 04/14/24 10:46 Labs: Laboratory Results - last 24 hr 04/14/24 04/14/24 04/14/24 15:16 17:33 17:58 POC Glucose 247 H Lactic Acid F/U @ 4Hr 1.8 Respiratory Panel Turcios See Note Adenovirus (Rapid PCR) Not Detected B.pert (TEM-PCR) Not Detected B.parapertussis DNA PCR Not Detected C. pneumoniae DNA (PCR) Not Detected Coronavirus OC43 (PCR) Not Detected Coronavirus HKU1 (PCR) Not Detected Coronavirus 229E (PCR) Not Detected Coronavirus NL63 (PCR) Not Detected Human Metapneumovir PCR Not Detected Influenza A (RT-PCR) Not Detected Influenza B (RT-PCR) Not Detected M. pneumoniae (PCR) Not Detected Parainfluenza 1 (PCR) Not Detected Parainfluenza 2 (PCR) Not Detected Parainfluenza 3 (PCR) Not Detected Parainfluenza 4 (PCR) Not Detected RSV (PCR) Not Detected Entero/Rhino (PCR) Not Detected SARS-CoV-2 RNA (RT-PCR) Not Detected 04/14/24 04/15/24 04/15/24 20:34 07:10 11:10 POC Glucose 294 H 165 H 236 H Lactic Acid F/U @ 4Hr Respiratory Panel Turcios Adenovirus (Rapid PCR) B.pert (TEM-PCR) B.parapertussis DNA PCR C. pneumoniae DNA (PCR) Coronavirus OC43 (PCR) Coronavirus HKU1 (PCR) Coronavirus 229E (PCR) Coronavirus NL63 (PCR) Human Metapneumovir PCR Influenza A (RT-PCR) Influenza B (RT-PCR) M. pneumoniae (PCR) Parainfluenza 1 (PCR) Parainfluenza 2 (PCR) Parainfluenza 3 (PCR) Parainfluenza 4 (PCR) RSV (PCR) Entero/Rhino (PCR) SARS-CoV-2 RNA (RT-PCR) 04/15/24 15:17 POC Glucose 257 H Lactic Acid F/U @ 4Hr Respiratory Panel Turcios Adenovirus (Rapid PCR) B.pert (TEM-PCR) B.parapertussis DNA PCR C. pneumoniae DNA (PCR) Coronavirus OC43 (PCR) Coronavirus HKU1 (PCR) Coronavirus 229E (PCR) Coronavirus NL63 (PCR) Human Metapneumovir PCR Influenza A (RT-PCR) Influenza B (RT-PCR) M. pneumoniae (PCR) Parainfluenza 1 (PCR) Parainfluenza 2 (PCR) Parainfluenza 3 (PCR) Parainfluenza 4 (PCR) RSV (PCR) Entero/Rhino (PCR) SARS-CoV-2 RNA (RT-PCR) Microbiology Microbiology Results: Microbiology 04/14/24 12:19 Blood - Venous Blood Culture - Preliminary No growth after 24 hours. 04/14/24 12:19 Blood - Venous Blood Culture - Preliminary No growth after 24 hours. Physical Exam 2 Vital Signs: Vital Signs: Last Vital Signs Temp 97 F 04/15/24 16:00 Pulse 90 04/15/24 16:00 Resp 12 04/15/24 16:00 BP 141/82 H 04/15/24 16:00 Pulse Ox 99 04/15/24 16:00 O2 Del Method Room Air 04/15/24 16:00 BMI result Body Mass Index 36.2 Const: General: no acute distress, alert and awake Eyes: Sclerae: sclerae normal EOM: EOMs intact bilaterally Neck: Neck: Yes no lymphadenopathy, Yes trachea midline and Yes supple Resp: Effort & Inspection: normal respiratory effort and no respiratory distress Auscultation: clear to auscultation bilaterally Cardio: Rate: regular rate Rhythm: regular rhythm Heart sounds: no gallops, no murmurs and no rubs GI: Palpation (GI): Soft to palpation and Other GI palpation findings present ( Nontender) Auscultation: normal bowel sounds Extrem: General: Yes no pedal edema, No clubbing and No cyanosis Procedures Date of Service Date of Service: 04/15/24 Assessment and Plan Assessment and plan (1) Anxiety: Status: Acute (2) Asthma: Status: Acute (3) Obesity due to excess calories: Status: Acute Plan Impression: 48-year-old lady with underlying asthma and environmental allergies admitted with dyspnea in treated empirically for asthma exacerbation and bronchitis. Now respiratory status at baseline. Recommendations: Restart home regimen of inhaled bronchodilators. Discontinue systemic glucocorticoids. Time Spent With Patient Time: Total time managing care of this patient today ____ minutes. Progress Note: Quality Stroke Does the patient have a stroke diagnosis?: No
[2024-04-15 19:57] LABS: Glucose, Whole Blood 330 mg/dL (60-115)
[2024-04-15] MEDS: Amitriptyline HCl 25 MG TABLET PO (21:04)
[2024-04-16] VITALS (11 sets, daily range): BP systolic 128–153; BP diastolic 77–97; PULSE 79–100; RESP 16–20; TEMP 36–36.6; O2SAT 94–98
[2024-04-16] MEDS: Pantoprazole Sodium 40 MG/10 ML VIAL IVPUSH ×2 (06:15→16:41)
[2024-04-16 07:25] LABS: Glucose, Whole Blood 173 mg/dL (60-115)
[2024-04-16] MEDS: Albuterol/Iprat 2.5/0.5MG 3 ML AMPUL.NEB INHALE ×3 (08:09→19:42)
[2024-04-16] MEDS: methylPREDNISolone Sod Succ 40 MG/ML VIAL IVPUSH ×2 (08:24→13:07)
[2024-04-16] MEDS: Insulin Lispro 100 UNIT/ML 3 ML VIAL SUBCUT ×4 (08:25→21:39)
[2024-04-16] MEDS: amLODIPine Besylate 5 MG TABLET PO (08:25)
[2024-04-16] MEDS: Atorvastatin Calcium 80 MG TABLET PO (08:25)
[2024-04-16] MEDS: Loratadine 10 MG TABLET PO (08:25)
[2024-04-16] MEDS: Nystatin Oral Susp 500,000 UNIT/5 ML ORAL.SUSP 400000 UNIT PO (08:26)
[2024-04-16] MEDS: guaiFEN/Codeine SF 200/20/10ML 10 ML LIQUID 5 ML PO ×3 (08:27→21:38)
[2024-04-16] MEDS: amLODIPine Besylate 10 MG TABLET PO (08:28)
[2024-04-16] MEDS: 0.9 % Sodium Chloride Flush 3 ML SYRINGE IVFLUSH ×3 (08:29→21:39)
[2024-04-16] MEDS: Docusate Sodium 100 MG CAPSULE PO ×2 (11:00→21:38)
[2024-04-16 11:23] LABS: Glucose, Whole Blood 237 mg/dL (60-115)
--- NOTE | 2024-04-16 11:40 | HO.PM.IMPN ---
Subjective Subjective Date of Service: 04/16/24 Interval History: copd execerebation Review of Systems sob with excersion has pain with swallowin no nausea or vomiting or abd pain or fevers. Physical Exam Vital Signs: Vital Signs: Last Vital Signs Temp 97.1 F 04/16/24 07:17 Pulse 90 04/16/24 08:10 Resp 20 04/16/24 08:10 BP 128/77 04/16/24 07:17 Pulse Ox 95 04/16/24 07:17 O2 Del Method Room Air 04/16/24 07:17 BMI result Body Mass Index 36.2 Appearance: Alert.? Oriented X3.? thorat -some oral/tongue thrush cvs: rrr, [id number]. res: air enrty diminshed ,b/l wheezing abd: no rebound or guarding ,nt, bs present. ext pulses present , no cyanosis . neuro: axo3 , nonfocal. Objective Data Active Medications Acetaminophen (Acetaminophen 325 Mg Tablet) 650 mg PO Q6H PRN PRN Reason: Pain, Mild (Pain Scale 1-3) Albuterol Sulfate (Albuterol Sulfate (0.083%) 2.5 Mg/3 Ml Vial.Neb) 2.5 mg INHALE Q2H PRN PRN Reason: Shortness of Breath/Wheezing Albuterol/Ipratropium (Albuterol/Iprat 2.5/0.5mg 3 Ml Ampul.Neb) 3 ml INHALE RQ4H WHILE AWAKE [facility] Last Admin: 04/16/24 08:09 Dose: 3 ml Documented By: MARILYNN Amitriptyline HCl (Amitriptyline Hcl 25 Mg Tablet) 25 mg PO BEDTIME SIXTO Last Admin: 04/15/24 21:04 Dose: 25 mg Documented By: KATE Amlodipine Besylate (Amlodipine Besylate 5 Mg Tablet) 5 mg PO DAILY [facility]; Protocol Last Admin: 04/16/24 08:25 Dose: 5 mg Documented By: RODNEY Amlodipine Besylate (Amlodipine Besylate 10 Mg Tablet) 10 mg PO DAILY [facility]; Protocol Last Admin: 04/16/24 08:28 Dose: 10 mg Documented By: RODNEY Atorvastatin Calcium (Atorvastatin Calcium 80 Mg Tablet) 80 mg PO DAILY [facility] Last Admin: 04/16/24 08:25 Dose: 80 mg Documented By: RODNEY Docusate Sodium (Docusate Sodium 100 Mg Capsule) 100 mg PO BID [facility] Last Admin: 04/16/24 11:00 Dose: 100 mg Documented By: RODNEY Enoxaparin Sodium (Enoxaparin Sodium 40 Mg/0.4 Ml Syringe) 40 mg SUBCUT Q24H [facility] Last Admin: 04/15/24 12:56 Dose: 40 mg Documented By: FÉLIX Ergocalciferol (Ergocalciferol (Vitamin D2) 1,250 Mcg Capsule) 1,250 mcg PO WE@0900 [facility] Glucose (Glucose Gel 15 Gm Gel..Gram.) 15 gm PO Q15M PRN; Protocol PRN Reason: per Hypoglycemia Standing Ord. Guaifenesin/Codeine Phosphate (Guaifen/Codeine Sf 200/20/10ml 10 Ml Liquid) 5 ml PO Q6H [facility] Last Admin: 04/16/24 08:27 Dose: 5 ml Documented By: RODNEY Dextrose (D10) 250 mls @ 750 mls/hr IV Q15M PRN; Protocol PRN Reason: per Hypoglycemia Standing Ord. Fluconazole 100 mg/ IV (Miscellaneous Supplies) 50 mls @ 50 mls/hr IV Q24H [facility] Last Infusion: 04/15/24 16:53 Dose: Infused Documented By: FÉLIX Insulin Human Lispro (Insulin Lispro 100 Unit/Ml 3 Ml Vial) 0 unit SUBCUT QIDACHS [facility]; Protocol Last Admin: 04/16/24 11:24 Dose: 4 unit Documented By: RODNEY Loratadine (Loratadine 10 Mg Tablet) 10 mg PO DAILY [facility] Last Admin: 04/16/24 08:25 Dose: 10 mg Documented By: RODNEY Magnesium Hydroxide (Milk Of Magnesia 30 Ml Oral.Susp) 30 ml PO DAILY PRN PRN Reason: Constipation Methylprednisolone Sodium Succinate (Methylprednisolone Sod Succ 40 Mg/Ml Vial) 40 mg IVPUSH Q12H [facility] Last Admin: 04/16/24 08:24 Dose: 40 mg Documented By: RODNEY Nystatin (Nystatin Oral Susp 500,000 Unit/5 Ml Oral.Susp) 400,000 unit PO QID [facility]; Protocol Last Admin: 04/16/24 08:26 Dose: 400,000 unit Documented By: RODNEY Ondansetron HCl (Ondansetron Hcl 4 Mg/2 Ml Vial) 4 mg IVPUSH Q8H PRN PRN Reason: Nausea and Vomiting Pantoprazole Sodium (Pantoprazole Sodium 40 Mg/10 Ml Vial) 40 mg IVPUSH BID@0630,1630 [facility] Last Admin: 04/16/24 06:15 Dose: 40 mg Documented By: KATE Polyethylene Glycol (Polyethylene Glycol 3350 17 Gm Powd.Pack) 17 gm PO DAILY PRN PRN Reason: Constipation Sodium Chloride (0.9 % Sodium Chloride Flush 3 Ml Syringe) 3 ml IVFLUSH QSHIFT [facility] Last Admin: 04/16/24 08:29 Dose: 3 ml Documented By: RODNEY Labs 04/14/24 10:46 04/14/24 10:46 Labs: Laboratory Results - last 24 hr 04/15/24 04/15/24 04/16/24 15:17 19:30 07:15 POC Glucose 257 H 330 H 173 H 04/16/24 11:12 POC Glucose 237 H Microbiology Microbiology Results: Microbiology 04/14/24 12:19 Blood Culture - Preliminary Blood - Venous No growth after 24 hours. 04/14/24 12:19 Blood Culture - Preliminary Blood - Venous No growth after 24 hours. Assessment and Plan (1) Oropharyngeal candidiasis: Status: Acute (2) Dysphagia: Status: Acute Assessment and Plan: 48 year old female with history of noninsulin dependent type 2 diabetes, severe persistent asthma, and severe obesity with BMI greater than 35 to be obsersved for further management of severe persistent asthma exacerbation. severe persistent asthma with acute exacerbation no hypoxia. Chest x-ray negative. CTA chest negative. respiratory viral panel -negative. multiple excerebation tachycardia due to albuterol use, tachypnea related to asthma exacerbation. No sepsis blood cultures negative @24hrs sob with minimum excersion continue nebs,steriods ,cough syrup pulm eval noted -continue above. 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 Gi eval noted-if continue to above symptoms -may need EGD. Hypertension -persistently hypertensive at ED visits -amlodipine 10 mg daily acute leukocytosis -due to recent p.o. steroid use acute lactic acidosis -due to albuterol use, no sepsis/severe sepsis [id number] type 2 diabetes -POC glucose, diabetic diet -Humalog on sliding scale -hold metformin severe obesity -weight loss efforts encouraged DVT prophylaxis-Lovenox Full code Ongoing need of hospitalization for severe asthma exacerbation and possible esophageal candidiasis-need IV steroids, IV fluconazole and PPI and monitoring for respiratory/GI status , pulmonary follow-up. (3) Acute asthma exacerbation: Status: Acute Quality Stroke Does the patient have a stroke diagnosis?: No VTE Prior VTE?: No VTE Risk Level:: Medical - moderate - high VTE Device Contraindication: Treatment Not Indicated VTE Drug Contraindication: N/A - Med Ordered
[2024-04-16] MEDS: Nystatin Oral Susp 500,000 UNIT/5 ML ORAL.SUSP 600000 UNIT PO ×3 (13:09→21:39)
[2024-04-16] MEDS: Enoxaparin Sodium 40 MG/0.4 ML SYRINGE SUBCUT (13:11)
[2024-04-16] MEDS: diphenhydrAMINE HCL 25 MG CAPSULE PO (15:26)
--- NOTE | 2024-04-16 15:59 | PC.NURSE ---
Addendum entered by Silva Paiz RN 04/16/24 16:12: Dr. Santiago is seeing patient at present Original Note: Covering for primary RN Charo,patient requested Benadryl for itchng of hands and face at 1525,now patient is complaining of burning in her chest and abdomen ,states it is not heartburn,Dr. Santiago notified
[2024-04-16 16:11] LABS: Glucose, Whole Blood 294 mg/dL (60-115)
[2024-04-16] MEDS: Simethicone 80 MG TAB.CHEW PO (16:42)
[2024-04-16] MEDS: diphenhydrAMINE HCL 50 MG/ML VIAL 25 MG IVPUSH (16:44)
[2024-04-16] MEDS: Famotidine/PF 20 MG/2 ML VIAL IVPUSH (16:44)
[2024-04-16 19:50] LABS: Glucose, Whole Blood 219 mg/dL (60-115)
[2024-04-16] MEDS: Amitriptyline HCl 25 MG TABLET PO (21:38)
[2024-04-17] VITALS (9 sets, daily range): BP systolic 117–136; BP diastolic 62–84; PULSE 62–93; RESP 14–18; TEMP 36–36.7; O2SAT 95–97
[2024-04-17] MEDS: Pantoprazole Sodium 40 MG/10 ML VIAL IVPUSH (05:59)
[2024-04-17 07:19] LABS: Glucose, Whole Blood 138 mg/dL (60-115)
[2024-04-17] MEDS: Albuterol/Iprat 2.5/0.5MG 3 ML AMPUL.NEB INHALE ×3 (08:07→20:07)
[2024-04-17] MEDS: Nystatin Oral Susp 500,000 UNIT/5 ML ORAL.SUSP 600000 UNIT PO ×4 (09:02→20:26)
[2024-04-17] MEDS: guaiFEN/Codeine SF 200/20/10ML 10 ML LIQUID 5 ML PO ×3 (09:03→20:27)
[2024-04-17] MEDS: 0.9 % Sodium Chloride Flush 3 ML SYRINGE IVFLUSH ×3 (09:04→20:27)
[2024-04-17] MEDS: Docusate Sodium 100 MG CAPSULE PO ×2 (09:05→20:25)
[2024-04-17] MEDS: amLODIPine Besylate 10 MG TABLET PO (09:05)
[2024-04-17] MEDS: Atorvastatin Calcium 80 MG TABLET PO (09:05)
[2024-04-17] MEDS: Loratadine 10 MG TABLET PO (09:05)
[2024-04-17] MEDS: predniSONE 20 MG TABLET PO (09:05)
[2024-04-17 11:17] LABS: Glucose, Whole Blood 207 mg/dL (60-115)
[2024-04-17] MEDS: Mag&Al/Sim/Diphenhyd/Lidocaine 10 ML ORAL.SUSP PO ×4 (11:23→20:25)
[2024-04-17] MEDS: Insulin Lispro 100 UNIT/ML 3 ML VIAL SUBCUT ×3 (11:24→20:27)
[2024-04-17] MEDS: Enoxaparin Sodium 40 MG/0.4 ML SYRINGE SUBCUT (13:56)
--- NOTE | 2024-04-17 14:11 | HO.PM.IMPN ---
Subjective Subjective Date of Service: 04/17/24 Interval History: copd execerebation Review of Systems sob seems improved ,has difficulty/pain with swallowing no nausea or vomiting or abd pain or fevers. Physical Exam Vital Signs: Vital Signs: Last Vital Signs Temp 96.8 F 04/17/24 11:50 Pulse 71 04/17/24 12:21 Resp 16 04/17/24 12:21 BP 134/79 04/17/24 11:50 Pulse Ox 97 04/17/24 11:50 O2 Del Method Room Air 04/17/24 11:50 BMI result Body Mass Index 36.2 Appearance: Alert.? Oriented X3.? thorat -some oral/tongue thrush cvs: rrr, [id number]. res: air enrty diminshed ,b/l wheezing abd: no rebound or guarding ,nt, bs present. ext pulses present , no cyanosis . neuro: axo3 , nonfocal. Objective Data Active Medications Acetaminophen (Acetaminophen 325 Mg Tablet) 650 mg PO Q6H PRN PRN Reason: Pain, Mild (Pain Scale 1-3) Albuterol Sulfate (Albuterol Sulfate (0.083%) 2.5 Mg/3 Ml Vial.Neb) 2.5 mg INHALE Q2H PRN PRN Reason: Shortness of Breath/Wheezing Albuterol/Ipratropium (Albuterol/Iprat 2.5/0.5mg 3 Ml Ampul.Neb) 3 ml INHALE RQ4H WHILE AWAKE [facility] Last Admin: 04/17/24 12:21 Dose: 3 ml Documented By: JESSY Amitriptyline HCl (Amitriptyline Hcl 25 Mg Tablet) 25 mg PO BEDTIME [facility] Last Admin: 04/16/24 21:38 Dose: 25 mg Documented By: KATE Amlodipine Besylate (Amlodipine Besylate 10 Mg Tablet) 10 mg PO DAILY [facility]; Protocol Last Admin: 04/17/24 09:05 Dose: 10 mg Documented By: RODNEY Atorvastatin Calcium (Atorvastatin Calcium 80 Mg Tablet) 80 mg PO DAILY [facility] Last Admin: 04/17/24 09:05 Dose: 80 mg Documented By: RODNEY Docusate Sodium (Docusate Sodium 100 Mg Capsule) 100 mg PO BID [facility] Last Admin: 04/17/24 09:05 Dose: 100 mg Documented By: RODNEY Enoxaparin Sodium (Enoxaparin Sodium 40 Mg/0.4 Ml Syringe) 40 mg SUBCUT Q24H [facility] Last Admin: 04/17/24 13:56 Dose: 40 mg Documented By: RODNEY Ergocalciferol (Ergocalciferol (Vitamin D2) 1,250 Mcg Capsule) 1,250 mcg PO WE@0900 [place] Glucose (Glucose Gel 15 Gm Gel..Gram.) 15 gm PO Q15M PRN; Protocol PRN Reason: per Hypoglycemia Standing Ord. Guaifenesin/Codeine Phosphate (Guaifen/Codeine Sf 200/20/10ml 10 Ml Liquid) 5 ml PO Q6H [facility] Last Admin: 04/17/24 13:54 Dose: 5 ml Documented By: RODNEY Dextrose (D10) 250 mls @ 750 mls/hr IV Q15M PRN; Protocol PRN Reason: per Hypoglycemia Standing Ord. Insulin Human Lispro (Insulin Lispro 100 Unit/Ml 3 Ml Vial) 0 unit SUBCUT QIDACHS [facility]; Protocol Last Admin: 04/17/24 11:24 Dose: 4 unit Documented By: RODNEY Lidocaine/Diphenhydr/Alum/Mg/Simeth (Mag&Al/Sim/Diphenhyd/Lidocaine 10 Ml Oral.Susp) 10 ml PO Q4H [facility]; Protocol Last Admin: 04/17/24 13:53 Dose: 10 ml Documented By: RODNEY Loratadine (Loratadine 10 Mg Tablet) 10 mg PO DAILY [facility] Last Admin: 04/17/24 09:05 Dose: 10 mg Documented By: RODNEY Magnesium Hydroxide (Milk Of Magnesia 30 Ml Oral.Susp) 30 ml PO DAILY PRN PRN Reason: Constipation Nystatin (Nystatin Oral Susp 500,000 Unit/5 Ml Oral.Susp) 600,000 unit PO QID [facility]; Protocol Last Admin: 04/17/24 13:55 Dose: 600,000 unit Documented By: RODNEY Ondansetron HCl (Ondansetron Hcl 4 Mg/2 Ml Vial) 4 mg IVPUSH Q8H PRN PRN Reason: Nausea and Vomiting Pantoprazole Sodium (Pantoprazole Sodium 40 Mg/10 Ml Vial) 40 mg IVPUSH BID@0630,1630 [facility] Last Admin: 04/17/24 05:59 Dose: 40 mg Documented By: KATE Polyethylene Glycol (Polyethylene Glycol 3350 17 Gm Powd.Pack) 17 gm PO DAILY PRN PRN Reason: Constipation Prednisone (Prednisone 20 Mg Tablet) 20 mg PO DAILY [facility] Last Admin: 04/17/24 09:05 Dose: 20 mg Documented By: RODNEY Sodium Chloride (0.9 % Sodium Chloride Flush 3 Ml Syringe) 3 ml IVFLUSH QSHIFT [facility] Last Admin: 04/17/24 09:04 Dose: 3 ml Documented By: RODNEY Labs 04/14/24 10:46 04/14/24 10:46 Labs: Laboratory Results - last 24 hr 04/16/24 04/16/24 04/17/24 16:05 19:39 07:08 POC Glucose 294 H 219 H 138 H 04/17/24 11:04 POC Glucose 207 H Microbiology Microbiology Results: Microbiology 04/14/24 12:19 Blood Culture - Preliminary Blood - Venous No growth after 48 hours. 04/14/24 12:19 Blood Culture - Preliminary Blood - Venous No growth after 48 hours. Assessment and Plan (1) Dysphagia: Status: Acute (2) Acute asthma exacerbation: Status: Acute Plan 48 year old female with history of noninsulin dependent type 2 diabetes, severe persistent asthma, and severe obesity with BMI greater than 35 to be obsersved for further management of severe persistent asthma exacerbation. severe persistent asthma with acute exacerbation no hypoxia. Chest x-ray negative. CTA chest negative. respiratory viral panel -negative. multiple excerebation tachycardia due to albuterol use, tachypnea related to asthma exacerbation. No sepsis blood cultures negative @24hrs sob with minimum excersion continue nebs,siwtched to posteriods ,cough syrup pulm eval noted -continue above. dysphagia/globus sensation possible oropharyngeal candidiasis, question esophageal candidiasis secondary to recurrent prednisone use and steroid inhalers nystatin swish and swallow [employer]-diet added magic mouth wash for pain,po nystatin switch and swallow ,could not tolerate fluconazole ( allergic reaction) 04/15/24,continue ppi ,if no improvement may need EGD. Gi eval noted-if continue to above symptoms -may need EGD. Hypertension -persistently hypertensive at ED visits -amlodipine 10 mg daily acute leukocytosis -due to recent p.o. steroid use acute lactic acidosis -due to albuterol use, no sepsis/severe sepsis [id number] type 2 diabetes -POC glucose, diabetic diet -Humalog on sliding scale -hold metformin severe obesity -weight loss efforts encouraged DVT prophylaxis-Lovenox Full code Ongoing need of hospitalization for severe asthma exacerbation and possible esophageal candidiasis-need IV steroids, IV fluconazole and PPI and monitoring for respiratory/GI status ,may need egd in am since or difficulty swallowing is not improving. Quality Stroke Does the patient have a stroke diagnosis?: No VTE Prior VTE?: No VTE Risk Level:: Medical - moderate - high VTE Device Contraindication: Treatment Not Indicated VTE Drug Contraindication: N/A - Med Ordered
[2024-04-17 16:01] LABS: Glucose, Whole Blood 334 mg/dL (60-115)
[2024-04-17 20:09] LABS: Glucose, Whole Blood 298 mg/dL (60-115)
[2024-04-17] MEDS: Amitriptyline HCl 25 MG TABLET PO (20:25)
[2024-04-17] MEDS: Milk of Magnesia 30 ML ORAL.SUSP PO (20:27)
[2024-04-17] MEDS: polyethylene glycoL 3350 17 GM POWD.PACK PO (23:44)
[2024-04-18] VITALS (10 sets, daily range): BP systolic 112–143; BP diastolic 69–88; PULSE 65–84; RESP 16–18; TEMP 36–36.8; O2SAT 94–98
[2024-04-18 07:43] LABS: Glucose, Whole Blood 159 mg/dL (60-115)
[2024-04-18] MEDS: amLODIPine Besylate 10 MG TABLET PO (07:58)
[2024-04-18] MEDS: Docusate Sodium 100 MG CAPSULE PO ×2 (07:58→20:31)
[2024-04-18] MEDS: Loratadine 10 MG TABLET PO (07:58)
[2024-04-18] MEDS: predniSONE 20 MG TABLET PO (07:58)
[2024-04-18] MEDS: Nystatin Oral Susp 500,000 UNIT/5 ML ORAL.SUSP 600000 UNIT PO ×2 (07:58→17:27)
[2024-04-18] MEDS: Mag&Al/Sim/Diphenhyd/Lidocaine 10 ML ORAL.SUSP PO ×3 (07:58→19:49)
[2024-04-18] MEDS: Atorvastatin Calcium 80 MG TABLET PO (07:58)
[2024-04-18] MEDS: guaiFEN/Codeine SF 200/20/10ML 10 ML LIQUID 5 ML PO (07:59)
[2024-04-18] MEDS: 0.9 % Sodium Chloride Flush 3 ML SYRINGE IVFLUSH ×3 (08:03→20:34)
[2024-04-18] MEDS: Albuterol/Iprat 2.5/0.5MG 3 ML AMPUL.NEB INHALE (08:18)
--- NOTE | 2024-04-18 09:13 | MHC.SLORD ---
Speech Language Pathology Order Status: Patient continues to c/o odynophagia and globus sensation. Patient is NPO, scheduled for EGD today. [employer] f/u on hold pending EGD results, possibly recommending further evaluation w/ MBSS.
--- NOTE | 2024-04-18 09:34 | MHC.SHP ---
Pre-Procedural Eval Section A - 24 Hr Update-Section A only Date of Service: 04/18/24 The patient is an INPATIENT: Yes The patient has been examined within 24 hours of the surgical procedure. The History & Physical has been completed within 30 days and I have reviewed it.: Yes Section B - Complete if H&P > 30 days Chief Complaint: asthma exacerbation, dysphagia Allergies: Allergies Allergy/AdvReac Type Severity Reaction Status Date / Time canagliflozin [Invokana] Allergy Unknown rash Verified 04/14/24 09:42 liraglutide Allergy Unknown rash Verified 04/14/24 09:42 animals Allergy Unknown rash Uncoded 04/14/24 09:42 Pt states no known food Allergy Unknown Unknown Uncoded 04/14/24 09:42 allerg Plan I have reviewed the history and physical and performed a pertinent physical examination on my patient. No changes have occurred unless specified. Time Spent With Patient Time: Total time managing care of this patient today ____ minutes.
[2024-04-18 11:13] LABS: Glucose, Whole Blood 193 mg/dL (60-115)
[2024-04-18] MEDS: Lactated Ringers 1,000 ML 80 ML IVCONT ×2 (13:40→20:35)
--- NOTE | 2024-04-18 13:58 | MHC.CM.PN ---
EMR REVIEWED AND PER MD ROUNDS, PT IS NOT MEDICALLY CLEARED FOR DC . PT SCHEDULED TO HAVE A EGD TODAY TO ADDRESS [place].CM WILL CONTINUE TO FOLLOW FOR ANY CHANGE TO DC PLAN/NEEDS.
--- NOTE | 2024-04-18 14:00 | P.CONAN_ITS ---
[facility] Active Problems Active Problems: All Active Problems Anxiety (Acute) Oropharyngeal candidiasis (Acute) Dysphagia (Acute) Acute asthma exacerbation (Acute) Adhesive capsulitis of left shoulder (Acute) Chronic constipation (Acute) Acid reflux (Acute) Early satiety (Acute) Painful arc syndrome of left shoulder (Acute) Hypertension (Acute) Dyspnea on exertion (Acute) Hyperglycemia (Acute) Diabetes (Acute) Hypoxia (Acute) Environmental allergies (Acute) Obesity due to excess calories (Acute) Leukocytosis (Acute) Asthma (Acute) Vitamin D deficiency (Acute) Hyperlipidemia (Acute) MCC (current) use of insulin (Acute) Diabetes type 2, uncontrolled (Acute) Diabetes (Acute) Past Medical History Medical History Eosinophilia Obesity due to excess calories Vitamin D deficiency Diabetic 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 with type 2 diabetes mellitus MCC (current) use of insulin Diabetes type 2, uncontrolled Ectopic Hyperlipidemia Hypertension Diabetes Asthma Family History Family History Father Diabetes mellitus Stomach cancer Mother Diabetes mellitus Ovarian cancer Paternal Grandfather Colon cancer Paternal Aunt Liver cancer Paternal Aunt Liver cancer Surgical History Surgical History History of esophagogastroduodenoscopy (EGD) Hx of colonoscopy History of surgical procedure on mouth Hx of ectopic History of Problems with Anesthesia: No Social History Social History Household Members: Family Housing: House Do you presently have visiting nurse or other home services: No Alcohol intake: never Patient Tobacco Use Status: Never used Tobacco Smoked in Last 30 Days: No Use of substances other than those prescribed or required for medical reasons: No Currently Displaying Signs/Symptoms of Drug Intoxication Withdrawal: No Are you DNR?: No Advance Directives: Yes Advance Directives on File: Yes Advance Directives Date on File: 07/15/22 Nutrition Risks: No Nutritional Risk service: No Current occupational status: employed Meds Allergies Allergy/AdvReac Type Severity Reaction Status Date / Time metronidazole [From Flagyl] Allergy Severe Anaphylaxis Verified 04/18/24 13:29 canagliflozin [Invokana] Allergy Unknown rash Verified 04/14/24 09:42 liraglutide Allergy Unknown rash Verified 04/14/24 09:42 animals Allergy Unknown rash Uncoded 04/14/24 09:42 Pt states no known food Allergy Unknown Unknown Uncoded 04/14/24 09:42 allerg Active Medications: Current Medications Acetaminophen (Acetaminophen 325 Mg Tablet) 650 mg PO Q6H PRN PRN Reason: Pain, Mild (Pain Scale 1-3) Albuterol Sulfate (Albuterol Sulfate (0.083%) 2.5 Mg/3 Ml Vial.Neb) 2.5 mg INHALE Q2H PRN PRN Reason: Shortness of Breath/Wheezing Albuterol/Ipratropium (Albuterol/Iprat 2.5/0.5mg 3 Ml Ampul.Neb) 3 ml INHALE RQ4H WHILE AWAKE [facility] Last Admin: 04/18/24 11:28 Dose: Not Given Amitriptyline HCl (Amitriptyline Hcl 25 Mg Tablet) 25 mg PO BEDTIME [facility] Last Admin: 04/17/24 20:25 Dose: 25 mg Amlodipine Besylate (Amlodipine Besylate 10 Mg Tablet) 10 mg PO DAILY [facility]; Protocol Last Admin: 04/18/24 07:58 Dose: 10 mg Atorvastatin Calcium (Atorvastatin Calcium 80 Mg Tablet) 80 mg PO DAILY [facility] Last Admin: 04/18/24 07:58 Dose: 80 mg Docusate Sodium (Docusate Sodium 100 Mg Capsule) 100 mg PO BID [facility] Last Admin: 04/18/24 07:58 Dose: 100 mg Enoxaparin Sodium (Enoxaparin Sodium 40 Mg/0.4 Ml Syringe) 40 mg SUBCUT Q24H [facility] Last Admin: 04/17/24 13:56 Dose: 40 mg Ergocalciferol (Ergocalciferol (Vitamin D2) 1,250 Mcg Capsule) 1,250 mcg PO WE@0900 [facility] Glucose (Glucose Gel 15 Gm Gel..Gram.) 15 gm PO Q15M PRN; Protocol PRN Reason: per Hypoglycemia Standing Ord. Guaifenesin/Codeine Phosphate (Guaifen/Codeine Sf 200/20/10ml 10 Ml Liquid) 5 ml PO Q6H [facility] Last Admin: 04/18/24 13:16 Dose: Not Given Dextrose (D10) 250 mls @ 750 mls/hr IV Q15M PRN; Protocol PRN Reason: per Hypoglycemia Standing Ord. Lactated Ringer's (Lr) 1,000 mls @ 80 mls/hr IVCONT .[id number] [facility] Last Admin: 04/18/24 13:40 Dose: 80 mls/hr Insulin Human Lispro (Insulin Lispro 100 Unit/Ml 3 Ml Vial) 0 unit SUBCUT QID ACHS [facility]; Protocol Last Admin: 04/18/24 11:43 Dose: Not Given Lidocaine/Diphenhydr/Alum/Mg/Simeth (Mag&Al/Sim/Diphenhyd/Lidocaine 10 Ml Oral.Susp) 10 ml PO Q4H [facility]; Protocol Last Admin: 04/18/24 13:16 Dose: Not Given Loratadine (Loratadine 10 Mg Tablet) 10 mg PO DAILY [facility] Last Admin: 04/18/24 07:58 Dose: 10 mg Magnesium Hydroxide (Milk Of Magnesia 30 Ml Oral.Susp) 30 ml PO DAILY PRN PRN Reason: Constipation Last Admin: 04/17/24 20:27 Dose: 30 ml Nystatin (Nystatin Oral Susp 500,000 Unit/5 Ml Oral.Susp) 600,000 unit PO QID [facility]; Protocol Last Admin: 04/18/24 13:16 Dose: Not Given Ondansetron HCl (Ondansetron Hcl 4 Mg/2 Ml Vial) 4 mg IVPUSH Q8H PRN PRN Reason: Nausea and Vomiting Polyethylene Glycol (Polyethylene Glycol 3350 17 Gm Powd.Pack) 17 gm PO BID [facility] Prednisone (Prednisone 20 Mg Tablet) 20 mg PO DAILY [facility] Last Admin: 04/18/24 07:58 Dose: 20 mg Sodium Chloride (0.9 % Sodium Chloride Flush 3 Ml Syringe) [address] [facility] Last Admin: 04/18/24 08:03 Dose: 3 ml Home Medications ?Medication ?Instructions ?Recorded ?Confirmed ?Last Taken ?Type amlodipine 10 mg tablet 10 mg PO DAILY 12/12/20 04/14/24 04/14/24 09:00 History amitriptyline 25 mg tablet 1 tab PO BEDTIME 07/14/22 04/14/24 02/25/23 History metformin 1,000 mg tablet 1 tab PO BIDWM 07/29/22 04/14/24 04/14/24 09:00 History albuterol sulfate 2.5 mg/3 mL 2.5 mg inhalation BID PRN 08/08/22 04/14/24 Unknown History (0.083 %) solution for nebulization Shortness Of Breath Or Wheezing blood sugar diagnostic (FreeStyle 08/08/22 06/04/23 Unknown History Lite Strips) albuterol sulfate 90 mcg/actuation 2 puff inhalation Q6H PRN 04/14/24 04/14/24 Unknown History aerosol inhaler shortness of breath or wheezing ergocalciferol (vitamin D2) 1,250 1,250 mcg PO WE@0904/14/24 04/14/24 04/13/24 History mcg (50,000 unit) capsule prednisone 20 mg tablet 20 mg PO ONCE 04/14/24 04/14/24 Unknown History tirzepatide 10 mg/0.5 mL 10 mg subcut SA@89904/14/24 04/14/24 Unknown History subcutaneous pen injector (Gustabo) Exam Height,Weight and Vital Signs: Height 5 ft 7 in Weight 104.9 kg Last Vital Signs Temp 97.2 F 04/18/24 13:18 Pulse 83 04/18/24 13:18 Resp 16 04/18/24 13:18 BP 125/88 04/18/24 13:18 Pulse Ox 96 04/18/24 13:18 O2 Del Method Room Air 04/18/24 13:18 Pertinent Lab Results Pertinent Lab Results: Laboratory Tests 04/14/24 04/14/24 04/14/24 10:46 12:19 13:50 WBC 14.6 H RBC 5.85 H Hgb 15.9 Hct 47.7 H MCV 81.5 MCH 27.2 MCHC 33.3 RDW 13.7 Plt Count 313 MPV 9.6 Immature Gran % (Auto) 0.3 Neut % (Auto) 51.2 Lymph % (Auto) 39.4 [place] % (Auto) 5.7 Eos % (Auto) 2.7 Baso % (Auto) 0.7 Lymph # (Auto) 5.8 H [place] # (Auto) 0.8 Eos # (Auto) 0.4 Baso # (Auto) 0.1 Abs Immat Gran (auto) 0.04 H Absolute Neuts (auto) 7.5 Absolute Nucleated RBC 0.000 Nucleated RBC % (auto) 0.0 Smear Tech's Comments VERIFIED O2 Saturation ABG pH at Pt Temp ABG pCO2 at Pt Temp ABG pO2 at Pt Temp ABG HCO3 ABG Base Excess (Actual) Sodium 141 Potassium 4.0 Chloride 108 Carbon Dioxide 22 Anion Gap 15 BUN 9 Creatinine 0.59 Estim Creat Clear Calc 140.1 Estimated GFR > 60 POC Glucose Random Glucose 184 H Lactic Acid 2.4 H* Lactic Acid F/U @ 2Hr Lactic Acid F/U @ 4Hr Calcium 9.3 Magnesium 2.0 Total Bilirubin 1.0 Direct Bilirubin 0.3 AST 15 ALT 25 Alkaline Phosphatase 80 Troponin I High Sens < 2.7 B-Natriuretic Peptide Total Protein 7.4 Albumin 4.2 Urine Color Yellow Urine Appearance Clear Urine pH 5.5 Ur Specific [place] >= 1.030 H Urine Protein Negative Urine Glucose (UA) >=1000 H Urine Ketones 15 Urine Blood Negative Urine Nitrite Negative Ur Leukocyte Esterase Negative Urine RBC 0-2 Urine WBC 0-5 Ur Squamous Epith Cells 3-5 Urine Bacteria Trace Hyaline Casts 0-2 Respiratory Panel [place]cios Adenovirus (Rapid PCR) B.pert (TEM-PCR) B.parapertussis DNA PCR C. pneumoniae DNA (PCR) Coronavirus OC43 (PCR) Coronavirus HKU1 (PCR) Coronavirus 229E (PCR) Coronavirus NL63 (PCR) Human Metapneumovir PCR Influenza A (RT-PCR) Influenza Type A (PCR) NEGATIVE Influenza B (RT-PCR) Influenza Type B (PCR) NEGATIVE M. pneumoniae (PCR) Parainfluenza 1 (PCR) Parainfluenza 2 (PCR) Parainfluenza 3 (PCR) Parainfluenza 4 (PCR) RSV (PCR) RSV RNA Qual (PCR) NEGATIVE Entero/Rhino (PCR) SARS-CoV-2 RNA (RT-PCR) NEGATIVE 04/14/24 04/14/24 04/14/24 15:16 15:53 17:33 WBC RBC Hgb Hct MCV MCH MCHC RDW Plt Count MPV Immature Gran % (Auto) Neut % (Auto) Lymph % (Auto) [place] % (Auto) Eos % (Auto) Baso % (Auto) Lymph # (Auto) [place] # (Auto) Eos # (Auto) Baso # (Auto) Abs Immat Gran (auto) Absolute Neuts (auto) Absolute Nucleated RBC Nucleated RBC % (auto) Smear Tech's Comments O2 Saturation 99.0 ABG pH at Pt Temp 7.44 ABG pCO2 at Pt Temp 26 L ABG pO2 at Pt Temp 105 ABG HCO3 18 L ABG Base Excess (Actual) -4.1 Sodium Potassium Chloride Carbon Dioxide Anion Gap BUN Creatinine Estim Creat Clear Calc Estimated GFR POC Glucose Random Glucose Lactic Acid Lactic Acid F/U @ 2Hr 2.4 H* Lactic Acid F/U @ 4Hr 1.8 Calcium Magnesium Total Bilirubin Direct Bilirubin AST ALT Alkaline Phosphatase Troponin I High Sens B-Natriuretic Peptide 11 Total Protein Albumin Urine Color Urine Appearance Urine pH Ur Specific [place] Urine Protein Urine Glucose (UA) Urine Ketones Urine Blood Urine Nitrite Ur Leukocyte Esterase Urine RBC Urine WBC Ur Squamous Epith Cells Urine Bacteria Hyaline Casts Respiratory Panel Turcios See Note Adenovirus (Rapid PCR) Not Detected B.pert (TEM-PCR) Not Detected B.parapertussis DNA PCR Not Detected C. pneumoniae DNA (PCR) Not Detected Coronavirus OC43 (PCR) Not Detected Coronavirus HKU1 (PCR) Not Detected Coronavirus 229E (PCR) Not Detected Coronavirus NL63 (PCR) Not Detected Human Metapneumovir PCR Not Detected Influenza A (RT-PCR) Not Detected Influenza Type A (PCR) Influenza B (RT-PCR) Not Detected Influenza Type B (PCR) M. pneumoniae (PCR) Not Detected Parainfluenza 1 (PCR) Not Detected Parainfluenza 2 (PCR) Not Detected Parainfluenza 3 (PCR) Not Detected Parainfluenza 4 (PCR) Not Detected RSV (PCR) Not Detected RSV RNA Qual (PCR) Entero/Rhino (PCR) Not Detected SARS-CoV-2 RNA (RT-PCR) Not Detected 04/14/24 04/14/24 04/15/24 17:58 20:34 07:10 WBC RBC Hgb Hct MCV MCH MCHC RDW Plt Count MPV Immature Gran % (Auto) Neut % (Auto) Lymph % (Auto) [place] % (Auto) Eos % (Auto) Baso % (Auto) Lymph # (Auto) [place] # (Auto) Eos # (Auto) Baso # (Auto) Abs Immat Gran (auto) Absolute Neuts (auto) Absolute Nucleated RBC Nucleated RBC % (auto) Smear Tech's Comments O2 Saturation ABG pH at Pt Temp ABG pCO2 at Pt Temp ABG pO2 at Pt Temp ABG HCO3 ABG Base Excess (Actual) Sodium Potassium Chloride Carbon Dioxide Anion Gap BUN Creatinine Estim Creat Clear Calc Estimated GFR POC Glucose 247 H 294 H 165 H Random Glucose Lactic Acid Lactic Acid F/U @ 2Hr Lactic Acid F/U @ 4Hr Calcium Magnesium Total Bilirubin Direct Bilirubin AST ALT Alkaline Phosphatase Troponin I High Sens B-Natriuretic Peptide Total Protein Albumin Urine Color Urine Appearance Urine pH Ur Specific [place] Urine Protein Urine Glucose (UA) Urine Ketones Urine Blood Urine Nitrite Ur Leukocyte Esterase Urine RBC Urine WBC Ur Squamous Epith Cells Urine Bacteria Hyaline Casts Respiratory Panel [place]cios Adenovirus (Rapid PCR) B.pert (TEM-PCR) B.parapertussis DNA PCR C. pneumoniae DNA (PCR) Coronavirus OC43 (PCR) Coronavirus HKU1 (PCR) Coronavirus 229E (PCR) Coronavirus NL63 (PCR) Human Metapneumovir PCR Influenza A (RT-PCR) Influenza Type A (PCR) Influenza B (RT-PCR) Influenza Type B (PCR) M. pneumoniae (PCR) Parainfluenza 1 (PCR) Parainfluenza 2 (PCR) Parainfluenza 3 (PCR) Parainfluenza 4 (PCR) RSV (PCR) RSV RNA Qual (PCR) Entero/Rhino (PCR) SARS-CoV-2 RNA (RT-PCR) 04/15/24 04/15/24 04/15/24 11:10 15:17 19:30 WBC RBC Hgb Hct MCV MCH MCHC RDW Plt Count MPV Immature Gran % (Auto) Neut % (Auto) Lymph % (Auto) [place] % (Auto) Eos % (Auto) Baso % (Auto) Lymph # (Auto) [place] # (Auto) Eos # (Auto) Baso # (Auto) Abs Immat Gran (auto) Absolute Neuts (auto) Absolute Nucleated RBC Nucleated RBC % (auto) Smear Tech's Comments O2 Saturation ABG pH at Pt Temp ABG pCO2 at Pt Temp ABG pO2 at Pt Temp ABG HCO3 ABG Base Excess (Actual) Sodium Potassium Chloride Carbon Dioxide Anion Gap BUN Creatinine Estim Creat Clear Calc Estimated GFR POC Glucose 236 H 257 H 330 H Random Glucose Lactic Acid Lactic Acid F/U @ 2Hr Lactic Acid F/U @ 4Hr Calcium Magnesium Total Bilirubin Direct Bilirubin AST ALT Alkaline Phosphatase Troponin I High Sens B-Natriuretic Peptide Total Protein Albumin Urine Color Urine Appearance Urine pH Ur Specific [place] Urine Protein Urine Glucose (UA) Urine Ketones Urine Blood Urine Nitrite Ur Leukocyte Esterase Urine RBC Urine WBC Ur Squamous Epith Cells Urine Bacteria Hyaline Casts Respiratory Panel [place] Adenovirus (Rapid PCR) B.pert (TEM-PCR) B.parapertussis DNA PCR C. pneumoniae DNA (PCR) Coronavirus OC43 (PCR) Coronavirus HKU1 (PCR) Coronavirus 229E (PCR) Coronavirus NL63 (PCR) Human Metapneumovir PCR Influenza A (RT-PCR) Influenza Type A (PCR) Influenza B (RT-PCR) Influenza Type B (PCR) M. pneumoniae (PCR) Parainfluenza 1 (PCR) Parainfluenza 2 (PCR) Parainfluenza 3 (PCR) Parainfluenza 4 (PCR) RSV (PCR) RSV RNA Qual (PCR) Entero/Rhino (PCR) SARS-CoV-2 RNA (RT-PCR) 04/16/24 04/16/24 04/16/24 07:15 11:12 16:05 WBC RBC Hgb Hct MCV MCH MCHC RDW Plt Count MPV Immature Gran % (Auto) Neut % (Auto) Lymph % (Auto) [place] % (Auto) Eos % (Auto) Baso % (Auto) Lymph # (Auto) [place] # (Auto) Eos # (Auto) Baso # (Auto) Abs Immat Gran (auto) Absolute Neuts (auto) Absolute Nucleated RBC Nucleated RBC % (auto) Smear Tech's Comments O2 Saturation ABG pH at Pt Temp ABG pCO2 at Pt Temp ABG pO2 at Pt Temp ABG HCO3 ABG Base Excess (Actual) Sodium Potassium Chloride Carbon Dioxide Anion Gap BUN Creatinine Estim Creat Clear Calc Estimated GFR POC Glucose 173 H 237 H 294 H Random Glucose Lactic Acid Lactic Acid F/U @ 2Hr Lactic Acid F/U @ 4Hr Calcium Magnesium Total Bilirubin Direct Bilirubin AST ALT Alkaline Phosphatase Troponin I High Sens B-Natriuretic Peptide Total Protein Albumin Urine Color Urine Appearance Urine pH Ur Specific [place] Urine Protein Urine Glucose (UA) Urine Ketones Urine Blood Urine Nitrite Ur Leukocyte Esterase Urine RBC Urine WBC Ur Squamous Epith Cells Urine Bacteria Hyaline Casts Respiratory Panel [place] Adenovirus (Rapid PCR) B.pert (TEM-PCR) B.parapertussis DNA PCR C. pneumoniae DNA (PCR) Coronavirus OC43 (PCR) Coronavirus HKU1 (PCR) Coronavirus 229E (PCR) Coronavirus NL63 (PCR) Human Metapneumovir PCR Influenza A (RT-PCR) Influenza Type A (PCR) Influenza B (RT-PCR) Influenza Type B (PCR) M. pneumoniae (PCR) Parainfluenza 1 (PCR) Parainfluenza 2 (PCR) Parainfluenza 3 (PCR) Parainfluenza 4 (PCR) RSV (PCR) RSV RNA Qual (PCR) Entero/Rhino (PCR) SARS-CoV-2 RNA (RT-PCR) 04/16/24 04/17/24 04/17/24 19:39 07:08 11:04 WBC RBC Hgb Hct MCV MCH MCHC RDW Plt Count MPV Immature Gran % (Auto) Neut % (Auto) Lymph % (Auto) [place] % (Auto) Eos % (Auto) Baso % (Auto) Lymph # (Auto) [place] # (Auto) Eos # (Auto) Baso # (Auto) Abs Immat Gran (auto) Absolute Neuts (auto) Absolute Nucleated RBC Nucleated RBC % (auto) Smear Tech's Comments O2 Saturation ABG pH at Pt Temp ABG pCO2 at Pt Temp ABG pO2 at Pt Temp ABG HCO3 ABG Base Excess (Actual) Sodium Potassium Chloride Carbon Dioxide Anion Gap BUN Creatinine Estim Creat Clear Calc Estimated GFR POC Glucose 219 H 138 H 207 H Random Glucose Lactic Acid Lactic Acid F/U @ 2Hr Lactic Acid F/U @ 4Hr Calcium Magnesium Total Bilirubin Direct Bilirubin AST ALT Alkaline Phosphatase Troponin I High Sens B-Natriuretic Peptide Total Protein Albumin Urine Color Urine Appearance Urine pH Ur Specific [place] Urine Protein Urine Glucose (UA) Urine Ketones Urine Blood Urine Nitrite Ur Leukocyte Esterase Urine RBC Urine WBC Ur Squamous Epith Cells Urine Bacteria Hyaline Casts Respiratory Panel [place] Adenovirus (Rapid PCR) B.pert (TEM-PCR) B.parapertussis DNA PCR C. pneumoniae DNA (PCR) Coronavirus OC43 (PCR) Coronavirus HKU1 (PCR) Coronavirus 229E (PCR) Coronavirus NL63 (PCR) Human Metapneumovir PCR Influenza A (RT-PCR) Influenza Type A (PCR) Influenza B (RT-PCR) Influenza Type B (PCR) M. pneumoniae (PCR) Parainfluenza 1 (PCR) Parainfluenza 2 (PCR) Parainfluenza 3 (PCR) Parainfluenza 4 (PCR) RSV (PCR) RSV RNA Qual (PCR) Entero/Rhino (PCR) SARS-CoV-2 RNA (RT-PCR) 04/17/24 04/17/24 04/18/24 15:56 20:06 07:26 WBC RBC Hgb Hct MCV MCH MCHC RDW Plt Count MPV Immature Gran % (Auto) Neut % (Auto) Lymph % (Auto) [place] % (Auto) Eos % (Auto) Baso % (Auto) Lymph # (Auto) [place] # (Auto) Eos # (Auto) Baso # (Auto) Abs Immat Gran (auto) Absolute Neuts (auto) Absolute Nucleated RBC Nucleated RBC % (auto) Smear Tech's Comments O2 Saturation ABG pH at Pt Temp ABG pCO2 at Pt Temp ABG pO2 at Pt Temp ABG HCO3 ABG Base Excess (Actual) Sodium Potassium Chloride Carbon Dioxide Anion Gap BUN Creatinine Estim Creat Clear Calc Estimated GFR POC Glucose 334 H 298 H 159 H Random Glucose Lactic Acid Lactic Acid F/U @ 2Hr Lactic Acid F/U @ 4Hr Calcium Magnesium Total Bilirubin Direct Bilirubin AST ALT Alkaline Phosphatase Troponin I High Sens B-Natriuretic Peptide Total Protein Albumin Urine Color Urine Appearance Urine pH Ur Specific [place] Urine Protein Urine Glucose (UA) Urine Ketones Urine Blood Urine Nitrite Ur Leukocyte Esterase Urine RBC Urine WBC Ur Squamous Epith Cells Urine Bacteria Hyaline Casts Respiratory Panel [place] Adenovirus (Rapid PCR) B.pert (TEM-PCR) B.parapertussis DNA PCR C. pneumoniae DNA (PCR) Coronavirus OC43 (PCR) Coronavirus HKU1 (PCR) Coronavirus 229E (PCR) Coronavirus NL63 (PCR) Human Metapneumovir PCR Influenza A (RT-PCR) Influenza Type A (PCR) Influenza B (RT-PCR) Influenza Type B (PCR) M. pneumoniae (PCR) Parainfluenza 1 (PCR) Parainfluenza 2 (PCR) Parainfluenza 3 (PCR) Parainfluenza 4 (PCR) RSV (PCR) RSV RNA Qual (PCR) Entero/Rhino (PCR) SARS-CoV-2 RNA (RT-PCR) 04/18/24 11:07 WBC RBC Hgb Hct MCV MCH MCHC RDW Plt Count MPV Immature Gran % (Auto) Neut % (Auto) Lymph % (Auto) [place] % (Auto) Eos % (Auto) Baso % (Auto) Lymph # (Auto) [place] # (Auto) Eos # (Auto) Baso # (Auto) Abs Immat Gran (auto) Absolute Neuts (auto) Absolute Nucleated RBC Nucleated RBC % (auto) Smear Tech's Comments O2 Saturation ABG pH at Pt Temp ABG pCO2 at Pt Temp ABG pO2 at Pt Temp ABG HCO3 ABG Base Excess (Actual) Sodium Potassium Chloride Carbon Dioxide Anion Gap BUN Creatinine Estim Creat Clear Calc Estimated GFR POC Glucose 193 H Random Glucose Lactic Acid Lactic Acid F/U @ 2Hr Lactic Acid F/U @ 4Hr Calcium Magnesium Total Bilirubin Direct Bilirubin AST ALT Alkaline Phosphatase Troponin I High Sens B-Natriuretic Peptide Total Protein Albumin Urine Color Urine Appearance Urine pH Ur Specific [place] Urine Protein Urine Glucose (UA) Urine Ketones Urine Blood Urine Nitrite Ur Leukocyte Esterase Urine RBC Urine WBC Ur Squamous Epith Cells Urine Bacteria Hyaline Casts Respiratory Panel [place] Adenovirus (Rapid PCR) B.pert (TEM-PCR) B.parapertussis DNA PCR C. pneumoniae DNA (PCR) Coronavirus OC43 (PCR) Coronavirus HKU1 (PCR) Coronavirus 229E (PCR) Coronavirus NL63 (PCR) Human Metapneumovir PCR Influenza A (RT-PCR) Influenza Type A (PCR) Influenza B (RT-PCR) Influenza Type B (PCR) M. pneumoniae (PCR) Parainfluenza 1 (PCR) Parainfluenza 2 (PCR) Parainfluenza 3 (PCR) Parainfluenza 4 (PCR) RSV (PCR) RSV RNA Qual (PCR) Entero/Rhino (PCR) SARS-CoV-2 RNA (RT-PCR) Airway Mallampati Class: III TM Dist: <=3cm Neck ROM: Full Loose/Missing/Broken Teeth: No Heart: rrr Lungs: cta Assessment and Plan Assessment Anesthesia Assessment: Anesthesia Plan Discussed and Chart Reviewed Final Anesthetic Review History of Problems with Anesthesia: No NPO: Yes ASA Class: III Final Preanesthetic Review: No Changes in Pt Med Stat, Meds/Allgs Chart Reviewed, Consent Obtained/Reviewed and Anes Risks/Benef Reviewed Patient Risk: Intermediate Procedure Risk: Intermediate Anesthetic Plan Anesthetic Plan: TIVA Disposition: Standard PACU
--- NOTE | 2024-04-18 14:09 | PC.NURSE ---
md figueroa made aware of po meds given this am. ok to proceed.
--- NOTE | 2024-04-18 14:11 | PC.NURSE ---
Patient in [facility]. Documentation in MAR that she took PO liquid Robitussin, Magic mouthwash, and Nystatin oral this morning. Dr. Jennings aware. Okay to proceed.
[2024-04-18 14:17] LABS: Glucose, Whole Blood 184 mg/dL (60-115)
--- NOTE | 2024-04-18 15:44 | HO.PM.IMPN ---
Subjective Subjective Date of Service: 04/18/24 Interval History: odynophagia ,globus sensation Review of Systems pain only little response denies any sob or cough or fever Physical Exam Vital Signs: Vital Signs: Last Vital Signs Temp 97.2 F 04/18/24 13:18 Pulse 83 04/18/24 13:18 Resp 16 04/18/24 13:18 BP 125/88 04/18/24 13:18 Pulse Ox 96 04/18/24 13:18 O2 Del Method Room Air 04/18/24 13:18 BMI result Body Mass Index 36.2 Appearance: Alert.? Oriented X3.? thorat -little oral/tongue thrush cvs: rrr, [id number]. res: air enrty improved,no wheezing abd: no rebound or guarding ,nt, bs present. ext pulses present , no cyanosis . neuro: axo3 , nonfocal. Objective Data Active Medications Acetaminophen (Acetaminophen 325 Mg Tablet) 650 mg PO Q6H PRN PRN Reason: Pain, Mild (Pain Scale 1-3) Albuterol Sulfate (Albuterol Sulfate (0.083%) 2.5 Mg/3 Ml Vial.Neb) 2.5 mg INHALE Q2H PRN PRN Reason: Shortness of Breath/Wheezing Albuterol/Ipratropium (Albuterol/Iprat 2.5/0.5mg 3 Ml Ampul.Neb) 3 ml INHALE RQ4H WHILE AWAKE [facility] Last Admin: 04/18/24 15:25 Dose: Not Given Documented By: PHUONG Non-Admin Reason: Off Unit: Surgery Amitriptyline HCl (Amitriptyline Hcl 25 Mg Tablet) 25 mg PO BEDTIME [facility] Last Admin: 04/17/24 20:25 Dose: 25 mg Documented By: GENA Amlodipine Besylate (Amlodipine Besylate 10 Mg Tablet) 10 mg PO DAILY [facility]; Protocol Last Admin: 04/18/24 07:58 Dose: 10 mg Documented By: SANDI Atorvastatin Calcium (Atorvastatin Calcium 80 Mg Tablet) 80 mg PO DAILY [facility] Last Admin: 04/18/24 07:58 Dose: 80 mg Documented By: SANDI Docusate Sodium (Docusate Sodium 100 Mg Capsule) 100 mg PO BID [facility] Last Admin: 04/18/24 07:58 Dose: 100 mg Documented By: SANDI Enoxaparin Sodium (Enoxaparin Sodium 40 Mg/0.4 Ml Syringe) 40 mg SUBCUT Q24H [facility] Last Admin: 04/17/24 13:56 Dose: 40 mg Documented By: RODNEY Ergocalciferol (Ergocalciferol (Vitamin D2) 1,250 Mcg Capsule) 1,250 mcg PO WE@0900 [facility] Glucose (Glucose Gel 15 Gm Gel..Gram.) 15 gm PO Q15M PRN; Protocol PRN Reason: per Hypoglycemia Standing Ord. Guaifenesin/Codeine Phosphate (Guaifen/Codeine Sf 200/20/10ml 10 Ml Liquid) 5 ml PO Q6H [facility] Last Admin: 04/18/24 13:16 Dose: Not Given Documented By: SANDI Non-Admin Reason: Off Unit: Surgery Dextrose (D10) 250 mls @ 750 mls/hr IV Q15M PRN; Protocol PRN Reason: per Hypoglycemia Standing Ord. Lactated Ringer's (Lr) 1,000 mls @ 80 mls/hr IVCONT .[id number] [facility] Last Admin: 04/18/24 13:40 Dose: 80 mls/hr Documented By: FAISAL Insulin Human Lispro (Insulin Lispro 100 Unit/Ml 3 Ml Vial) 0 unit SUBCUT QIDACHS [facility]; Protocol Last Admin: 04/18/24 11:43 Dose: Not Given Documented By: SANDI Non-Admin Reason: NPO Lidocaine/Diphenhydr/Alum/Mg/Simeth (Mag&Al/Sim/Diphenhyd/Lidocaine 10 Ml Oral.Susp) 10 ml PO Q4H [facility]; Protocol Last Admin: 04/18/24 13:16 Dose: Not Given Documented By: SANDI Non-Admin Reason: Off Unit: Surgery Loratadine (Loratadine 10 Mg Tablet) 10 mg PO DAILY [facility] Last Admin: 04/18/24 07:58 Dose: 10 mg Documented By: SANDI Magnesium Hydroxide (Milk Of Magnesia 30 Ml Oral.Susp) 30 ml PO DAILY PRN PRN Reason: Constipation Last Admin: 04/17/24 20:27 Dose: 30 ml Documented By: GENA Nystatin (Nystatin Oral Susp 500,000 Unit/5 Ml Oral.Susp) 600,000 unit PO QID [facility]; Protocol Last Admin: 04/18/24 13:16 Dose: Not Given Documented By: SANDI Non-Admin Reason: Off Unit: Surgery Ondansetron HCl (Ondansetron Hcl 4 Mg/2 Ml Vial) 4 mg IVPUSH Q8H PRN PRN Reason: Nausea and Vomiting Polyethylene Glycol (Polyethylene Glycol 3350 17 Gm Powd.Pack) 17 gm PO BID [facility] Prednisone (Prednisone 20 Mg Tablet) 20 mg PO DAILY [facility] Last Admin: 04/18/24 07:58 Dose: 20 mg Documented By: SANDI Sodium Chloride (0.9 % Sodium Chloride Flush 3 Ml Syringe) 3 ml IVFLUSH QSHIFT [facility] Last Admin: 04/18/24 08:03 Dose: 3 ml Documented By: SANDI Labs 04/14/24 10:46 04/14/24 10:46 Labs: Laboratory Results - last 24 hr 04/17/24 04/17/24 04/18/24 15:56 20:06 07:26 POC Glucose 334 H 298 H 159 H 04/18/24 04/18/24 11:07 14:13 POC Glucose 193 H 184 H Assessment and Plan (1) Dysphagia: Status: Acute (2) Acute asthma exacerbation: Status: Acute Plan 48 year old female with history of noninsulin dependent type 2 diabetes, severe persistent asthma, and severe obesity with BMI greater than 35 to be obsersved for further management of severe persistent asthma exacerbation. severe persistent asthma with acute exacerbation no hypoxia. Chest x-ray negative. CTA chest negative. respiratory viral panel -negative. multiple excerebation blood cultures negative @24hrs sob improved. continue nebs,siwtched to posteriods ,cough syrup pulm eval noted -continue above. dysphagia/globus sensation possible oropharyngeal candidiasis, question esophageal candidiasis secondary to recurrent prednisone use and steroid inhalers nystatin swish and swallow TOOLROOM CHECKER-diet added magic mouth wash for pain,po nystatin switch and swallow ,could not tolerate fluconazole ( allergic reaction) 04/15/24,continue ppi ,if no improvement may need EGD. Gi eval noted-if continue to above symptoms -going for egd. Hypertension -persistently hypertensive at ED visits -amlodipine 10 mg daily acute leukocytosis -due to recent p.o. steroid use acute lactic acidosis -due to albuterol use, no sepsis/severe sepsis [id number] type 2 diabetes -POC glucose, diabetic diet -Humalog on sliding scale -hold metformin severe obesity -weight loss efforts encouraged DVT prophylaxis-Lovenox Full code adadenum: Rapid response was called- Patient got fentanyl, propofol, lidocaine in procedure: Patient came back to floor 7 pm patient become diaphoretic, more sleepy, she is having burning type point pain in upper abdomen and chest, more pleuritic , nonradiating, diaphoretic , saying that she is flying. Physical exam: Unchanged except patient is somewhat more sleepy. Follows simple commands Lungs are still seems clear Abdomen is soft and bowel sounds are present, did not have any sign off rebound or guarding Plan: EKG reviewed seems sinus rhythm no ST changes, abd ph 7.6 /17/136 Added troponin, VBG, CT abdomen and chest, also given Narcan, IV lactic Ringer d/w anesthesiologist [id number] to try Narcan as above. neurochecks After given Narcan patient has little more awake, but other symptoms are unchanged.another dose of narcan added d/w Icu and icu eval placed .[place] [facility] [place] to follow Quality Stroke Does the patient have a stroke diagnosis?: No VTE Prior VTE?: No VTE Risk Level:: Medical - moderate - high VTE Device Contraindication: Treatment Not Indicated VTE Drug Contraindication: N/A - Med Ordered
--- NOTE | 2024-04-18 16:03 | P.BOP_ITS ---
Brief Operative Note Date of Service: 04/18/24 Pre-op diagnosis: Dysphagia/Odynophagia Post-op diagnosis: other (GERD, Gastritis, Hiatal hernia, R/O Esophageal Candidiaisis) Procedure: EGD with biopsies Surgeon: Rory Daniels MD Anesthesia: MAC Was an Vinyl Top Installer used for this Procedure?: No Estimated blood loss (mL): 2.0 Pathology: other (A. Gastric antrum B. EG Junction at 36cm C. Esophagus 20-25cm) Condition: stable Disposition: PACU
--- NOTE | 2024-04-18 16:04 | PM.EVENT ---
Event Note Date of Service: 04/18/24 Event Note: EGD-Full note dictated Findings: 1. Gastritis/Duodenitis-biopsied gastric antrum 2. Small hiatal hernia with changes of GERD, but no esophagitis nor definitive Cordova's-biopsied EG Junction at 36cm 3. No definitive esophageal candidiasis, though some mucosal edema in the proximal esophagus--biopsies taken Rec: Advance diet. Check path. Start a po PPI. Would finish course of Nystatin S&S. Hold Lovenox x 36 hours. D/W her significant other, Oscar. Thanks Time Spent With Patient Time: Total time managing care of this patient today ____ minutes.
[2024-04-18 17:18] LABS: Glucose, Whole Blood 194 mg/dL (60-115)
[2024-04-18] MEDS: Omeprazole 40 MG CAPSULE.DR PO (17:26)
[2024-04-18] MEDS: Insulin Lispro 100 UNIT/ML 3 ML VIAL SUBCUT ×2 (17:29→20:29)
--- NOTE | 2024-04-18 18:57 | ECG_ITS ---
Test Reason : CP Blood Pressure : / mmHG Vent. Rate : 079 BPM Atrial Rate : 079 BPM P-R Int : 130 ms QRS Dur : 098 ms QT Int : 368 ms P-R-T Axes : 069 065 046 degrees QTc Int : 421 ms Normal sinus rhythm Normal ECG When compared with ECG of 14-APR-2024 10:01, No significant change was found Referred By: Debbie Alvarado Electronically Signed By:ANTOLIN SANCHEZ MD
--- NOTE | 2024-04-18 19:00 | PC.NURSE ---
This RN assumed care at 1900, Per nurse shift report pt started having chest pain around 1845, Rapid response was called, during nurses report. Dr. Santiago at bedside, VSS, EKG ordered, labs draw, second IV line placed, MAGGIE hall started, placed on tele. Pt still reports feeling like she was floating/out of body experience face was flushed, diaphoretic. Report given to telemetry by Day time nurse, pt transported to room 471.
--- NOTE | 2024-04-18 19:35 | PC.NURSE ---
Assumed care of patient at this time s/p rapid response. Patient a/ox4, drowsy but responding appropriately, maintaining eyes open. Receiving 1L bolus. Narcan given.
[2024-04-18] MEDS: Naloxone HCl Nasal 4 MG SPRAY NOSTRILALT ×2 (19:37→20:24)
[2024-04-18 19:44] LABS: VBG Base Excess 2.3 mmol/L; VBG HCO3 20 mmol/L (22-26); VBG pCO2 17 mmHg; VBG pH 7.65 (7.32-7.43); VBG pO2 136 mmHg
[2024-04-18 19:45] LABS: Venous Blood Gas Refer to POC result
[2024-04-18 19:47] LABS: Glucose, Whole Blood 242 mg/dL (60-115)
[2024-04-18 20:06] LABS: Troponin-I High Sensitivity < 2.7 ng/L (<3.5-17.0)
[2024-04-18 20:08] LABS: Glucose, Whole Blood 257 mg/dL (60-115)
[2024-04-18] MEDS: Acetaminophen 325 MG TABLET 650 MG PO (20:28)
[2024-04-18] MEDS: ondansetron HCL 4 MG/2 ML VIAL IVPUSH (20:28)
[2024-04-18 20:31] LABS: Hematocrit 44.2 % (37.0-47.0); Hemoglobin 15.3 g/dl (12.0-16.0); Mean Corpuscular HGB Conc 34.6 g/dl (31.0-35.0); Mean Corpuscular Hemoglobin 27.6 pg (27.0-33.0); Mean Corpuscular Volume 79.8 fL (80.0-98.0); Mean Platelet Volume 10.4 fL (9.4-12.3); PLT CLUMP 1; Red Blood Count 5.54 X10*6/uL (4.20-5.50); Red Cell Distribution Width 13.7 % (11.0-16.0)
[2024-04-18 20:44] LABS: Anion Gap 15 (12-20); Blood Urea Nitrogen 9 mg/dL (9-16); Calcium 8.5 mg/dL (8.4-10.2); Carbon Dioxide 19 mmol/L (22-29); Chloride 108 mmol/L (96-108); Creatinine Clr Calc Pharmacy 142.1; Estimated Glomerular Filt Rate > 60; Glucose Random 248 mg/dL (60-115); Potassium 4.2 mmol/L (3.3-5.1); Sodium 138 mmol/L (135-145)
[2024-04-18 21:10] LABS: Platelet Count 233 X10*3/uL (160-400); White Blood Count 10.7 X10*3/uL (4.8-10.8)
--- NOTE | 2024-04-18 21:15 | P.PNCC_ITS ---
Critical Care Event Note Summary Date of Service: 04/18/24 Code activated: No Narrative: This case had a high probability of a clinically significant, sudden, or life threatening deterioration of this patient's condition which required my full and direct attention, intervention and personal management. Critical Care Time (minutes): 45 Comment: Clinical Precedent to this date: ?Patient is a 48-year-old female who is on they 3. Of her hospital admission due to shortness of breath and cough, she has underlying history of diabetes type 2, asthma, morbid obesity with BMI over 35, significant anxiety, hypertension, hyperlipidemia, as well as a strong family history of stomach cancer (her father); ovarian cancer (mother) colon cancer (paternal grandfather) along with aunts on her father's side who have had liver cancer. ?During the hospitalization, the patient had complained of dysphagia and given some oral thrush, the concern was that she would have esop hageal candidiasis. Subjective:? Today pt were asked to see the patient on the floor as she had an EGD a few hours earlier findings which were reported as gastritis and duodenitis and without complications.? Reportedly the patient had gotten fentanyl, propofol and lidocaine during the procedure. According to the hospitalist, the patient was diaphoretic, somnolent he is concerned something else may be going on. After the procedure the concern was that the patient was stating that she felt like she was floating and she had some chest discomfort, workup had been started with full set of labs and images which are now pending. ?Patient complains of 5/10 epigastric discomfort nonradiating, nothing makes it better or worse, feels as burning, she also feels like she has floating in the air but she feels much better now. Focused Review of systems:? Denies history of coronary artery disease, headache, double, admits some blurry vision which according to her is new, denies nausea or vomiting, admits to diaphoresis earlier, denies shortness of breath, cough, sputum production, melena or hematochezia, no dysuria, no weakness or paresthesias. VS: ?143/85, 71, 18, 90% on room air, temperature 97.5 degrees General:? Alert oriented x3 no acute distress Skin: ?Right upper lip facial scar, otherwise Intact, no lesions or rash.? S omewhat anxious. HEENT:? Normocephalic, atraumatic, extraocular movements intact, neck is supple, no lymphadenopathy.? Buccal mucosa moist.? Throat midline. Cardiac:? Clear S1-S2, no murmurs rubs or gallops. Pulmonary:? Clear to auscultation, no wheezes, rales or rhonchi. Abdomen:? Protuberant, positive bowel sounds in all 4 quadrants.? Soft, nontender, no rebound or guarding.? No CVA tenderness. Musculoskeletal:? Moving all 4 extremities upon request a major joints, no calf tenderness, no edema. Neurologic:? As above, no focal deficits. Vascular:? 2+ pulses upper and lower extremities distally. SIGNIFICANT LABORATORY DATA: ?White blood cells 10.7, hemoglobin 15.3, hematocrit 44.2, platelets 233, sodium 130, potassium 4.2, chloride 108, carbon dioxide 19, BUN 9, creatinine 0.59. Venous blood gas review shows pH of 7.65, pCO2 17, PO2 136, HC03 20, O2 sat 99%, base excess 2.3. REVIEW OF IMAGES: ? Review of the CT of the chest, abdomen and pelvis report mentions no pneumomediastinum, no free air, no mediastinal or upper abdominal hernia, distention of the abdomen is noted with recent food ingestion, mild constipation, no obstructive radiopaque calculi of the midpole of the right kidney. EKG REVIEW:? To my view this sinus rhythm ventricular rate of 99 beats per minute.? There is no ST elevations, no ST depressions.? QTC 433.? No comparison available. ASSESSMENT AND PLAN: 1. Reported mental status changes not noted during my evaluation likely transient changes from sedation used during the above-mentioned EGD 2. Mixed Metabolic and respiratory alkalosis likely due to anxiety and dehydration 3. Ongoing anxiety which improves with reassurance 4. Type 2 diabetes 5. Morbid obesity Patient was seen, evaluated, chart, meds, labs, images and others reviewed in detail.? I do not think this patient needs any further evaluation by our team.? The patient is hemodynamically stable, not hypoxic, she does not appear to be confused to me especially when speaking to her in Croatian. I do not think any further workup is granted, recommend IV fluids, would check magnesium and phosphorus, trend troponins, repeat EKG if chest pain recurs. Certainly if the patient decompensates you have any further questions, will be happy to follow her along with you.? At this point we will sign out on this case, case discussed with Dr Bhatia. GI PROPHYLAXIS: PPI per GI recomendations Critical care time used for critical evaluation of this patient, diagnosis, treatment and coordination of care, review her records and documentation TOTAL CRITICAL CARE TIME 45? MIN . discussion and coordination with consultants, completely separate from any procedures performed. Patient's care was discussed in detail with Dr. Mcguire, who is aware of all the above as well as the plan of care for this patient.
[2024-04-18 21:49] LABS: Magnesium 2.1 mg/dL (1.6-2.6); Phosphorus 2.6 mg/dL (2.7-4.5)
[2024-04-19] VITALS (9 sets, daily range): BP systolic 110–116; BP diastolic 56–78; PULSE 62–98; RESP 18–20; TEMP 35.9–36.4; O2SAT 95–98
--- NOTE | 2024-04-19 02:18 | OP_ITS ---
DATE OF SERVICE: 04/18/2024 SURGEON: Rory Daniels MD INDICATIONS: The patient presents for evaluation of dysphagia and odynophagia. Full consent is obtained from her for this, including risks of bleeding and perforation. PREOPERATIVE DIAGNOSIS: POSTOPERATIVE DIAGNOSIS: PROCEDURE PERFORMED: Esophagogastroduodenoscopy with biopsies. ESTIMATED BLOOD LOSS: COMPLICATIONS: ANESTHESIA: Monitored anesthesia care. ASSISTANTS: SPECIMENS: PREOPERATIVE DIAGNOSES: Dysphagia and odynophagia. POSTOPERATIVE DIAGNOSES: Dysphagia and odynophagia, gastritis, duodenitis, gastroesophageal reflux, hiatal hernia, rule out esophageal candidiasis. DESCRIPTION OF PROCEDURE: The patient was placed in the left lateral decubitus position. The Olympus video gastroscope was passed in the posterior oropharynx and upper esophagus under direct vision. The scope was passed slowly into the distal esophagus. The gastroesophageal junction appeared at 36 cm. This area was notable for some irregularity consistent with reflux, but no evidence of esophagitis nor any definitive evidence of Cordova mucosa. The scope entered the stomach. There was a small hiatal hernia. The scope was advanced to pylorus and the duodenum was cannulated in the descending portion. The duodenum including the bulb appeared normal other than some mild changes of duodenitis in the duodenal bulb with erythema and edema. There was no erosions or ulceration. The scope was withdrawn back to the stomach and the gastric antrum did have areas of gastritis with erythema and edema as well, but no erosions or ulceration. There was good peristalsis. Gastric mucosa was somewhat friable. Biopsies were obtained from the antrum. The scope was retroflexed visualizing the proximal stomach carefully which appeared normal, without any sign of mass or ulceration. The scope was straightened and withdrawn back to the esophagus. Biopsies were obtained at the EG junction at 36 cm. The entire esophagus was carefully inspected and I did not visualize any definitive esophageal candidiasis. The very proximal esophagus did have some mucosal changes of some edema, but again no definitive changes of candidiasis. Biopsies were obtained between 20 and 25 cm as well. The scope was withdrawn from the patient. She tolerated the procedure well and was returned to the recovery area in stable condition. IMPRESSION: 1. Gastroesophageal reflux. 2. Hiatal hernia. 3. Gastritis and duodenitis. 4. Rule out esophageal candidiasis. PLAN: The results of biopsies will be checked. She will be switched to an oral PPI. Her diet will be advanced as tolerated. If the biopsies do show any underlying candidiasis, then she can be treated for that as well with something such as a nystatin swish and swallow which she has already been on as she had an allergic reaction to fluconazole. She should avoid all aspirin and NSAIDs for at least a couple of weeks. MD RADHA Pop/JOHN / [id number]
[2024-04-19] MEDS: Omeprazole 40 MG CAPSULE.DR PO (05:21)
[2024-04-19 07:06] LABS: Glucose, Whole Blood 163 mg/dL (60-115)
[2024-04-19] MEDS: Albuterol/Iprat 2.5/0.5MG 3 ML AMPUL.NEB INHALE ×3 (08:44→15:48)
[2024-04-19] MEDS: predniSONE 20 MG TABLET PO (09:23)
[2024-04-19] MEDS: Docusate Sodium 100 MG CAPSULE PO (09:23)
[2024-04-19] MEDS: Loratadine 10 MG TABLET PO (09:23)
[2024-04-19] MEDS: Atorvastatin Calcium 80 MG TABLET PO (09:23)
[2024-04-19] MEDS: amLODIPine Besylate 10 MG TABLET PO (09:23)
[2024-04-19] MEDS: Mag&Al/Sim/Diphenhyd/Lidocaine 10 ML ORAL.SUSP PO (09:24)
[2024-04-19] MEDS: Nystatin Oral Susp 500,000 UNIT/5 ML ORAL.SUSP 600000 UNIT PO (09:25)
[2024-04-19] MEDS: Insulin Lispro 100 UNIT/ML 3 ML VIAL SUBCUT (09:25)
[2024-04-19] MEDS: 0.9 % Sodium Chloride Flush 3 ML SYRINGE IVFLUSH (09:25)
[2024-04-19 10:55] LABS: Glucose, Whole Blood 221 mg/dL (60-115)
--- NOTE | 2024-04-19 11:11 | PM.DS ---
DS: Providers Provider Date of Service: 04/19/24 Date of admission: 04/15/24 14:39 Primary care physician: Shandra Diaz MD Consults: 04/14/24 13:26 Consult to Gastroenterology Routine Consulting Provider: Rory Daniels Reason for consultation: dysphagia, ?esophageal candidiasis 04/14/24 13:44 Consult to Pulmonology Routine Consulting Provider: [facility] Reason for consultation: recurrent severe persistent asthma exacebation 04/18/24 19:55 Consult to Critical Care Routine Consulting Provider: Ashkan Mcguire Reason for consultation: level of care Has provider been notified: No DS: Diagnosis Discharge Diagnosis (1) Dysphagia: Status: Acute (2) Acute asthma exacerbation: Status: Acute (3) Anxiety: Status: Acute (4) Oropharyngeal candidiasis: Status: Acute (5) Gastritis and duodenitis: Status: Acute DS: Summary Hospital Course Hospital Course: Admission note HPI 48 year old female with history of noninsulin dependent type 2 diabetes, severe persistent asthma, and severe obesity with BMI greater than 35 presented to the ED for evaluation of sob, primarily with exertion, and occasionally productive cough. This has been ongoing for over 1 month and patient has been seen in the ER on 3 other occasions in the past 2 months and prescribed prednisone with temporary improvement of symptoms but with quick relapse. She does follow with pulmonology and is on Xolair injections as well as Singulair. Despite this, has been using her albuterol nebulizers up to 10 times daily which is limiting her ability to work. Reports symptoms again worsen when speaking. She is also reporting dysphagia and globus sensation ongoing for several weeks. No fevers, chills, sick contacts, abdominal pain, nausea, vomiting, diarrhea, lightheadedness, orthopnea, edema, chest pain. On arrival, VSS except for mild tachycardia secondary to albuterol use and tachypnea to 28. She is also hypertensive to 181/100. No hypoxia or fevers. She has a leukocytosis of 14.6. Renal function electrolyte levels normal. Lactic acid 2.4. Troponin below detectable limits. BNP pending. Urinalysis unremarkable. Negative for COVID-19, RSV, influenza. Full viral respiratory panel pending. Chest x-ray negative for any acute cardiopulmonary abnormality. In the ed has received 10mg albuterol x 2, 60mg iv methylprednisolone, 2mg iv mag, and doxycycline. Hospital course # Severe persistent asthma with acute exacerbation The patient was treated with bronchodilator nebulizers and steroids with good response over the course of hospital stay as she was weaned off O2 and was able to ambulate on RA with no hypoxia or dyspnea. Her exacerbations likely related to acid reflux from her stomach. Will hold on Prednisone on discharge given oral candiasis as she finished total of 5 days while inpatient. evaluated by corrections identification technician during this visit. # Dysphagia it seems to be a result of oropharyngeal candidiasis with a question of esophageal candidiasis secondary to recurrent prednisone use and steroid inhalers. Started on nystatin swish and swallow as she was also evaluated by CONFIGURATION CONSULTANT team who started her on diet. Seen by GI dr Daniels who did an upper endoscopy showing evidnece of reflux, gastritis and duodenitis. To be treated with PO Nystatis S&S for 1 more week and PO Omeprazole. She will follow with dr Daniels as outpatient to follow on pathology result. # acute leukocytosis, resolved. due to recent p.o. steroid use not infection # acute lactic acidosis, due to albuterol use, no sepsis/severe sepsis Discharge plan Continue Nystatin as prescribed Omeprazole daily for stomach protection Start Montelukast for better control of Asthma Try losing weight and avoid late meals; Asthma can be exacerbated by stomach acid reflux To follow with PCP\Dr Daniels for pathology report from your EGD Time Attestation Discharge Coordination Time (in mins): 36 Quality: Safe Use of Opioids Does Pt have an Active Cancer Diagnosis on the Problem List?: No Quality: Stroke Does the patient have a stroke diagnosis?: No Physical Exam Vital Signs: Vital Signs: Last Vital Signs Temp 97.2 F 04/19/24 07:39 Pulse 75 04/19/24 08:44 Resp 18 04/19/24 08:44 BP 115/69 04/19/24 07:39 Pulse Ox 97 04/19/24 07:39 O2 Del Method Room Air 04/19/24 07:39 O2 Flow Rate 6 04/18/24 16:14 BMI result Body Mass Index 36.2 Const: Other: Constitutional : Awake, interactive, obese, not in distress Neck : Normal inspection, Supple Cardiovascular : RRR, no JVP, no lower extremity edema Respiratory : good bilateral air entry, no crackles, wheezes or rhonchi Gastrointestinal: soft, lax, Normal bowel sounds, Non tender Skin : Warm, Dry Neurological : Alert & oriented x3, No focal deficit DS: Data Data Completed and Pending Pending studies at discharge: Pending at discharge 04/18/24 15:43 Surgical [PTH] Routine Labs on day of discharge: Laboratory Results - last 24 hr 04/18/24 04/18/24 04/18/24 11:07 14:13 17:14 WBC RBC Hgb Hct MCV MCH MCHC RDW Plt Count MPV Absolute Nucleated RBC Nucleated RBC % (auto) VBG pH VBG pCO2 VBG pO2 VBG HCO3 VBG O2 Saturation VBG Base Excess Sodium Potassium Chloride Carbon Dioxide Anion Gap BUN Creatinine Estim Creat Clear Calc Estimated GFR POC Glucose 193 H 184 H 194 H Random Glucose Calcium Phosphorus Magnesium Troponin I High Sens 04/18/24 04/18/24 04/18/24 19:03 19:24 19:28 WBC RBC Hgb Hct MCV MCH MCHC RDW Plt Count MPV Absolute Nucleated RBC Nucleated RBC % (auto) VBG pH 7.65 H* VBG pCO2 17 VBG pO2 136 VBG HCO3 20 L VBG O2 Saturation 99.0 VBG Base Excess 2.3 Sodium Potassium Chloride Carbon Dioxide Anion Gap BUN Creatinine Estim Creat Clear Calc Estimated GFR POC Glucose 257 H Random Glucose Calcium Phosphorus Magnesium Troponin I High Sens < 2.7 04/18/24 04/18/24 04/19/24 19:43 20:16 07:01 WBC 10.7 RBC 5.54 H Hgb 15.3 Hct 44.2 MCV 79.8 L MCH 27.6 MCHC 34.6 RDW 13.7 Plt Count 233 D MPV 10.4 Absolute Nucleated RBC 0.000 Nucleated RBC % (auto) 0.0 VBG pH VBG pCO2 VBG pO2 VBG HCO3 VBG O2 Saturation VBG Base Excess Sodium 138 Potassium 4.2 Chloride 108 Carbon Dioxide 19 L Anion Gap 15 BUN 9 Creatinine 0.59 Estim Creat Clear Calc 142.1 Estimated GFR > 60 POC Glucose 242 H 163 H Random Glucose 248 H Calcium 8.5 D Phosphorus 2.6 L Magnesium 2.1 Troponin I High Sens 04/19/24 10:51 WBC RBC Hgb Hct MCV MCH MCHC RDW Plt Count MPV Absolute Nucleated RBC Nucleated RBC % (auto) VBG pH VBG pCO2 VBG pO2 VBG HCO3 VBG O2 Saturation VBG Base Excess Sodium Potassium Chloride Carbon Dioxide Anion Gap BUN Creatinine Estim Creat Clear Calc Estimated GFR POC Glucose 221 H Random Glucose Calcium Phosphorus Magnesium Troponin I High Sens Preliminary micro results at discharge 04/14/24 12:19 Blood Culture - Preliminary Blood - Venous No growth after 48 hours. 04/14/24 12:19 Blood Culture - Preliminary Blood - Venous No growth after 48 hours. Imaging Chest x-ray: Radiologist's impression: ITS Impressions Chest X-Ray 04/14/24 10:00 IMPRESSION: Unremarkable examination, without interval change. Chest CTA 04/14/24 14:50 IMPRESSION: No active disease and no evidence for acute PE. VTE: negative Abdomen/Pelvis CT 04/18/24 20:05 IMPRESSION: Unremarkable CT chest, abdomen and pelvic exam. There is no pneumomediastinum, free air or mediastinal upper abdominal hernia. The stomach is distended with recently ingested food. Mild constipation. Nonobstructive radiopaque calculi mid pole right kidney. Chest CT 04/18/24 20:05 IMPRESSION: Unremarkable CT chest, abdomen and pelvic exam. There is no pneumomediastinum, free air or mediastinal upper abdominal hernia. The stomach is distended with recently ingested food. Mild constipation. Nonobstructive radiopaque calculi mid pole right kidney. Discharge Plan Discharge Anticipated Discharge Date/Time: 04/19/24 10:38 Patient Disposition: Home, Self-Care Discharge Diagnosis: Asthma exacerbation swallowing problem; fungal infection Gastritis Referrals: Shandra Diaz MD [Primary Care Provider] - 1 Week Discharge Medications: New nystatin 100,000 unit/mL Suspension 600,000 unit PO QID 10 Days Qty: 240 0RF omeprazole 40 mg Capsule,Delayed Release(Dr/Ec) 40 mg PO DAILY@0630 Qty: 90 0RF montelukast 10 mg tablet 10 mg PO BEDTIME Qty: 90 0RF Continued Xolair 150 mg recon soln 300 mg subcut Q2W 28 Days Qty: 4 12RF Rx Instructions: requires multiple injection sites; do not exceed 150 mg per injection site (DME) Dexcom G6 Transmitter Device See Rx Instructions .ROUTE .COMPLEX Qty: 1 0RF Dose Instruction: DIRECTED Rx Instructions: DIRECTED (DME) Dexcom G7 Sensor Device See Rx Instructions .Route Qty: 3 5RF Rx Instructions: As directed change every 10 days (DME) nebulizers [AeroEclipse II Nebulizer] [facility] [place] See Rx Instructions .ROUTE .MEDSUPPLY Qty: 1 0RF Rx Instructions: As directed (DME) nebulizers [Compact Compressor Nebulizer] [facility] [place] See Rx Instructions .ROUTE .MEDSUPPLY Qty: 1 0RF Rx Instructions: As directed amitriptyline 25 mg tablet 1 tab PO BEDTIME metformin 1,000 mg tablet 1 tab PO BIDWM Mounjaro 10 mg/0.5 mL pen injector 10 mg subcut SA@0900 albuterol sulfate 90 mcg/actuation HFA aerosol inhaler 2 puff inhalation Q6H PRN (Reason: shortness of breath or wheezing) ergocalciferol (vitamin D2) 1,250 mcg (50,000 unit) capsule 1,250 mcg PO WE@0900 prednisone 20 mg Tablet 20 mg PO ONCE Rx Instructions: DUE TODAY 04/14/2024 (DME) blood-glucose meter [FreeStyle Lite Meter] Kit See Rx Instructions .ROUTE .MEDSUPPLY Qty: 1 0RF Rx Instructions: As directed (DME) lancets [FreeStyle Lancets] 28 gauge [facility] [place] Rx Instructions .ROUTE .MEDSUPPLY Qty: 200 1RF Rx Instructions: 5x/day amlodipine 10 mg tablet 10 mg PO DAILY rosuvastatin 40 mg tablet 40 mg PO BEDTIME 90 Days Qty: 90 2RF (DME) FreeStyle Lite Strips Strip See Rx Instructions .Route Rx Instructions: As directed albuterol sulfate 2.5 mg /3 mL (0.083 %) solution for nebulization 2.5 mg inhalation BID PRN (Reason: Shortness Of Breath Or Wheezing) Jardiance 25 mg tablet 25 mg PO DAILY Qty: 30 5RF (DME) pen needle, diabetic [Comfort EZ Pen [place]] 32 gauge x 5/16 needle See Rx Instructions .Route Qty: 100 6RF Rx Instructions: As directed injects 4X/day Discharge Orders: Discharge Order (Routine); Ordered 04/19/24 Ordered By: Haven Triplett Diet: Advance to usual diet Activity on Discharge: As tolerated Stand Alone Forms: Patient Portal Discharge page, Work/School Release Print Language: Lithuanian Care Plan Goals: Continue Nystatin as prescribed Omeprazole daily for stomach protection Start Montelukast for better control of Asthma Try losing weight and avoid late meals; Asthma can be exacerbated by stomach acid reflux To follow with PCP\Dr Daniels for pathology report from your EGD Health Concerns: Read below Plan of Treatment: Read below Assessment: Read below
--- NOTE | 2024-04-19 13:15 | MHC.CM.PN ---
Pt has been medically cleared for DC, she will go home today via private transport, DCP is home, self care.
--- NOTE | 2024-04-19 13:44 | MHC.SPEECHCO ---
Pt declined to trial any PO when offerred. Stating that she was afraid it might hurt . She reports symptom relief with Magic Mouthwash medication and that she does not want any changes to her diet (Regular/Thin). No further SHOVEL OPERATOR intervention required at this time. Recommended the Pt continue to follow-up with her GI recommendations.
--- NOTE | 2024-04-19 15:38 | HO.POSTANES ---
Post Anesthesia Evaluation Post Anesthesia Evaluation Date of Service: 04/19/24 Vital Signs: Vital Signs Temp Pulse Resp BP Pulse Ox O2 Del Method 04/19/24 15:13 97.6 F 98 18 113/68 96 Room Air 04/19/24 13:26 96 Room Air 04/19/24 11:50 91 18 04/19/24 11:23 96.9 F 87 18 113/78 95 Room Air 04/19/24 08:44 75 18 04/19/24 07:39 97.2 F 75 18 115/69 97 Room Air Anesthesia: TIVA Mental Status: Awake Pain Control: Satisfactory Nausea/Vomiting: None Hydration: Adequate Anesthesia-Related Issues: No Anes. Related Issues Comments: Patient apparently had an episode yesterday which from her description appears to have been neurological ?TIA. She was aware of people being around during the episode but was unable to speak and everything appeared blurry. Could hear what was being said but unable to move or respond. Was aware at some point of something being put in her nose- twice. BP at some point noted to be 181/100 ?Not sure of temporal association to episode yesterday. Had an episode a few days/weeks when her mouth twisted to 1 side while she was eating and she ended up biting a chunk of her cheek . Episode resolved but she did mention it to her doctor. She mentioned that she gets some 'episodes related to ?headaches- does not remember name of condition but what she had yesterday was not like those previous presentations. It is unlikely that the episode yesterday was related to any medication received during anesthesia- routine doses administered for MAC anesthesia/TIVA for upper endoscopy and patient had no issues in PACU before discharge to the floor. Episode on the floor was about 4 hours after EGD where fentanyl not present in any appreciable amounts in the system. Will discuss with Dr Daniels/ hospitalist
== END 2024-04-19 17:21 | disposition home or self-care (01) | DRG 141 ==
LOC: HO.ED 12:21 → HO.EDOVER 13:32 → HO.S3 20:02 → HO.IMC 04-18 19:12
PROVIDERS: Internal Medicine; Internal Medicine Pulmonary Disease; Physician Assistant; Physician Assistant Medical; Admitting Provider Physician Assistant; Emergency Provider Emergency Medicine; PCP Internal Medicine; Visit Provider Student in an Organized Health Care Education/Training Program
PROC: 0DB48ZX Excision of Esophagogastric Junction, Via Natural or Artificial Opening Endoscopic, Diagnostic (ICD-10-PCS; principal; 2024-04-18 14:40)
DX: J45.51 Severe persistent asthma with (acute) exacerbation (principal); B37.81 Candidal esophagitis; E87.21 Acute metabolic acidosis; F41.9 Anxiety disorder, unspecified; T37.8X5A Adverse effect of other specified systemic anti-infectives and antiparasitics, initial encounter; R23.2 Flushing; E11.42 Type 2 diabetes mellitus with diabetic 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; K21.00 Gastro-esophageal reflux disease with esophagitis, without bleeding; I10 Essential (primary) hypertension; K29.70 Gastritis, unspecified, without bleeding; K44.9 Diaphragmatic hernia without obstruction or gangrene; K29.80 Duodenitis without bleeding; E66.01 Morbid (severe) obesity due to excess calories; Z68.36 Body mass index [BMI] 36.0-36.9, adult; Z20.822 Contact with and (suspected) exposure to COVID-19; Z79.52 Long term (current) use of systemic steroids; Z79.84 Long term (current) use of oral hypoglycemic drugs; Z79.899 Other long term (current) drug therapy
CPT/HCPCS: 0241U; 36415; 36600; 71045; 71250; 71275; 74176; 80048; 80076; 81001; 82803; 82947; 83605; 83735; 83880; 84100; 84484; 85025; 85027; 87040; 87633; 88305; 88312; 88313; 88342; 92610; 93005; 93306; 94640; 99285; C9113; J1200; J1450; J1650; J2405; J2704; J2919; J3010; J3475; J7120; Q9957; Q9967

== ENCOUNTER → 2024-04-14 09:46 | Outpatient (BNV) | payer OTHER, SELFPAY | PROVIDERS: Admitting Provider Physician Assistant; Emergency Provider Emergency Medicine; PCP Internal Medicine; Visit Provider Internal Medicine | DX: R06.02 Shortness of breath (principal) | CPT/HCPCS: 93010 ==

== ENCOUNTER 2024-04-14 13:21 | Outpatient (BNV) | payer OTHER, SELFPAY | END 2024-04-15 07:00 | PROVIDERS: Admitting Provider Physician Assistant; Emergency Provider Emergency Medicine; PCP Internal Medicine; Visit Provider Internal Medicine | DX: R06.00 Dyspnea, unspecified (principal) | CPT/HCPCS: 93306 ==

== ENCOUNTER → 2024-04-14 13:21 | Outpatient (BNV) | payer OTHER, SELFPAY | PROVIDERS: Admitting Provider Physician Assistant; Emergency Provider Emergency Medicine; PCP Internal Medicine; Visit Provider Physician Assistant | DX: R13.10 Dysphagia, unspecified (principal); J45.51 Severe persistent asthma with (acute) exacerbation; B37.0 Candidal stomatitis | CPT/HCPCS: 99223; 99231; 99232; 99239 ==

== ENCOUNTER → 2024-04-14 13:21 | Outpatient (BNV) | payer OTHER, SELFPAY | PROVIDERS: Admitting Provider Physician Assistant; Emergency Provider Emergency Medicine; PCP Internal Medicine; Visit Provider Internal Medicine Pulmonary Disease | DX: J45.909 Unspecified asthma, uncomplicated (principal); F41.9 Anxiety disorder, unspecified; E66.01 Morbid (severe) obesity due to excess calories; Z68.35 Body mass index [BMI] 35.0-35.9, adult | CPT/HCPCS: 99232 ==

== ENCOUNTER 2024-04-15 14:39 | Outpatient (BNV) | payer OTHER, SELFPAY | END 2024-04-18 18:57 | PROVIDERS: Admitting Provider Physician Assistant; Emergency Provider Emergency Medicine; PCP Internal Medicine; Visit Provider Internal Medicine Cardiovascular Disease | DX: R07.9 Chest pain, unspecified (principal) | CPT/HCPCS: 93010 ==

== ENCOUNTER → 2024-04-15 14:39 | Outpatient (BNV) | payer OTHER, SELFPAY | PROVIDERS: Admitting Provider Physician Assistant; Emergency Provider Emergency Medicine; PCP Internal Medicine; Visit Provider Physician Assistant Medical | DX: J45.51 Severe persistent asthma with (acute) exacerbation (principal) | CPT/HCPCS: 99291 ==

== ENCOUNTER 2024-06-10 07:55 | Outpatient (AMB) | payer OTHER, SELFPAY ==
[2024-06-10 07:58] VITALS: BP 98/62; PULSE 85; BMI 35.5
--- NOTE | 2024-06-10 07:58 | MHC.OFFVIS ---
Vital Signs 06/10/24 07:58 Height 5 ft 8 in Weight 233 lb 7.512 oz BMI 35.5 BP 98/62 Blood Pressure Location Lt brachial Position Sitting Pulse 85 Pulse Source Pulse Oximeter Intake Visit Reasons: Type 2 DM/CONFIRMED Intake Note: Patient presents today to follow up on D2MT. Last Diabetic Eye exam: Over 1 year ago Last Podiatry Visit: Doesn't have one Random Glucose:205 mg/dl HgA1c: 8.7% 04/13/24 Business Banking Relationship Manager Required: No Accompanied by: Self / Same As Patient Allergies metronidazole [From Flagyl] Allergy (Severe, Verified 06/10/24 08:03) Anaphylaxis canagliflozin [Invokana] Allergy (Unknown, Verified 06/10/24 08:03) rash liraglutide Allergy (Unknown, Verified 06/10/24 08:03) rash animals Allergy (Unknown, Uncoded 06/10/24 08:03) rash Pt states no known food allerg Allergy (Unknown, Uncoded 06/10/24 08:03) Unknown Medication List - Last Reconciled 06/10/24 by Beth Villalobos PA-C albuterol sulfate 90 mcg/actuation 2 puffs inhalation Q6H PRN albuterol sulfate 2.5 mg inhalation BID PRN amitriptyline 1 tab PO BEDTIME amlodipine 10 mg PO DAILY blood sugar diagnostic (FreeStyle Lite Strips) As directed blood-glucose meter (FreeStyle Lite Meter kit) As directed blood-glucose sensor (Dexcom G7 Sensor device) As directed change every 10 days blood-glucose transmitter (Dexcom G6 Transmitter device) DIRECTED empagliflozin (Jardiance) 25 mg PO DAILY ergocalciferol (vitamin D2) 1,250 mcg PO WE@0900 lancets (FreeStyle Lancets) 5x/day metformin 1 tab PO BIDWM montelukast 10 mg PO BEDTIME nebulizers (Compact Compressor Nebulizer) As directed nebulizers (AeroEclipse II Nebulizer) As directed nystatin 600,000 units (6 mL) PO QID 10 days omalizumab (Xolair) 300 mg subcut Q2W 28 days omeprazole 40 mg PO DAILY@0630 pen needle, diabetic (Comfort EZ Pen [place]) As directed injects 4X/day prednisone 20 mg PO ONCE rosuvastatin 40 mg PO BEDTIME 90 days tirzepatide (Mounjaro) 10 mg subcut SA@0900 HPI HPI Type 2 DM/CONFIRMED: Details: Patient is a 48-year-old female with a significant past medical history uncontrolled type 2 diabetes with long-term insulin use, hypertension, hyperlipidemia, asthma presenting today for a follow-up for diabetes. She last saw Dr. Magaña in December. -She was hospitalized in March through part of April with gastritis, dysphagia, asthma exacerbation. She is still on prednisone and states that that is why her blood sugars are elevated. Endo: Her last A1c was 8.7. She is currently on Mounjaro 10 mg weekly, metformin 1000 mg twice a day, Jardiance 25 mg daily (did not tolerate a higher dose). She was previously on Lantus but has been off of this for the last few months. She states that she thinks she needs to go back on it especially with her recent asthma exacerbation. has a dexcom- she does not have any sensors. She states that she has been out of this for a couple months. She does not have any testing supplies at all because she gets into her mother who was also a diabetic. Denies any hypoglycemic events She is not on a statin or MALIA-inhibitor CV: Blood pressure today in the office is 98 over 62. She is asymptomatic denies any dizziness, chest pain or palpitations. She is on amlodipine 10 mg. Her blood pressure has been running on the lower side at home as well. She states that last month which is our PCP was normal. [facility] Medical History Eosinophilia Obesity due to excess calories Vitamin D deficiency Diabetic 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 with type 2 diabetes mellitus [facility] (current) use of insulin Diabetes type 2, uncontrolled Ectopic Hyperlipidemia Hypertension Diabetes Asthma Surgical History History of esophagogastroduodenoscopy (EGD) Hx of colonoscopy History of surgical procedure on mouth Hx of ectopic Family History Father Diabetes mellitus Stomach cancer Mother Diabetes mellitus Ovarian cancer Paternal Grandfather Colon cancer Paternal Aunt Liver cancer Paternal Aunt Liver cancer Social History Household Members: Family Housing: House Do you presently have visiting nurse or other home services: No Alcohol intake: never Patient Tobacco Use Status: Never used Tobacco Advance Directives Date on File: 07/15/22 service: No Current occupational status: employed Physical Exam Vital Signs: Last Vital Signs Pulse 85 06/10/24 07:58 BP 98/62 06/10/24 07:58 BMI result Body Mass Index 35.5 Const Orientation/consciousness: patient oriented x3 Neck Neck: Yes no lymphadenopathy Thyroid: Thyroid normal Carotids: no bruits Resp Auscultation: clear to auscultation bilaterally Cardio Rate: regular rate Rhythm: regular rhythm Heart sounds: S1 normal heart sound present and S2 normal heart sound present Peripheral pulses: dorsalis pedis present Neuro General: patient oriented x3, gait normal and no focal motor deficits Extrem Other: Monofilament sensation intact bilaterally. Vibratory sensation intact bilaterally. Skin intact. General: Yes normal to inspection Results Reviewed Results Reviewed: Laboratory Last Values Glucose (Clinic) 205 mg/dL (60-115) H 06/10/24 08:05 Laboratory Tests 04/13/24 04/18/24 06/10/24 09:14 20:16 08:05 Sodium 138 Potassium 4.2 Chloride 108 Carbon Dioxide 19 L Anion Gap 15 BUN 9 Creatinine 0.59 Estim Creat Clear Calc 142.1 Estimated GFR > 60 Glucose (Clinic) 205 H Hemoglobin A1c % 8.7 H Assessment & Plan Assessment & Plan (1) Diabetes type 2, uncontrolled: Code(s): E11.65 - Type 2 diabetes mellitus with hyperglycemia Category: Medical Qualifiers: Glycemic state: with hyperglycemia Qualified Code(s): E11.65 - Type 2 diabetes mellitus with hyperglycemia Plan: We will add lantus 10 units nightly. refilled sensors today refilled glucometer and testing supplies Rule of 15s discussed. One-month follow-up. Continue current meds. (2) [employer] (current) use of insulin: Code(s): Z79.4 - [facility] (current) use of insulin Category: Medical Plan: add back lantus (3) Hypertension: Code(s): I10 - Essential (primary) hypertension Category: Medical Qualifiers: Hypertension type: essential hypertension Qualified Code(s): I10 - Essential (primary) hypertension Plan: lower side today. will monitor at home and if persistently low will contact pcp to discuss reducing norvasc. Medications: New tirzepatide (Mounjaro) 10 mg (0.5 mL) subcut SA@0900 2 mL 11RF insulin glargine (Lantus Solostar U-100 Insulin) 10 units (0.1 mL) subcut QPM 15 mL 5RF Changed From blood sugar diagnostic (FreeStyle Lite Strips) As directed E11.65 - Type 2 diabetes mellitus with hyperglycemia, Z79.4 - [facility] (current) use of insulin To blood sugar diagnostic (FreeStyle Lite Strips) use daily As directed 100 ea 2RF E11.65 - Type 2 diabetes mellitus with hyperglycemia, Z79.4 - [facility] (current) use of insulin Refilled blood-glucose meter (FreeStyle Lite Meter kit) As directed 1 ea 0RF E11.65 - Type 2 diabetes mellitus with hyperglycemia lancets (FreeStyle Lancets) 5x/day 200 ea 1RF E11.65 - Type 2 diabetes mellitus with hyperglycemia blood-glucose sensor ([employer] G7 Sensor device) As directed change every 10 days 3 ea 5RF empagliflozin (Jardiance) 25 mg PO DAILY 90 tabs 3RF Coding Level of Care Code Est Pt Level 4 (05564) Diagnoses Uncontrolled type 2 diabetes mellitus with hyperglycemia E11.65 Glycemic state: with hyperglycemia [facility] (current) use of insulin Z79.4 Essential hypertension I10 Hypertension type: essential hypertension
[2024-06-10 08:09] LABS: Glucose, Whole Blood 205 mg/dL (60-115)
== END 2024-06-10 08:42 | disposition home or self-care (01) ==
PROVIDERS: PCP Internal Medicine; Visit Provider Physician Assistant
DX: E11.65 Type 2 diabetes mellitus with hyperglycemia (principal); Z79.4 Long term (current) use of insulin; I10 Essential (primary) hypertension
CPT/HCPCS: 99214

== ENCOUNTER → 2024-06-10 07:55 | Outpatient (BNVA) | payer OTHER, SELFPAY | PROVIDERS: PCP Internal Medicine; Visit Provider Physician Assistant | DX: E11.65 Type 2 diabetes mellitus with hyperglycemia (principal); I10 Essential (primary) hypertension; Z79.4 Long term (current) use of insulin | CPT/HCPCS: 82947 ==

== ENCOUNTER 2024-07-20 09:28 | Outpatient (REF) | payer OTHER, SELFPAY ==
[2024-07-20 11:31] LABS: Estimated Average Glucose 212 mg/dL
[2024-07-20 11:43] LABS: Alanine Aminotransferase 52 U/L (0-31); Alkaline Phosphatase 90 U/L (39-117); Anion Gap 14 (12-20); Aspartate Amino Transferase 30 U/L (5-31); Blood Urea Nitrogen 11 mg/dL (9-16); Calcium 9.1 mg/dL (8.4-10.2); Carbon Dioxide 23 mmol/L (22-29); Chloride 106 mmol/L (96-108); Estimated Glomerular Filt Rate > 60; Glucose Random 192 mg/dL (60-115); Potassium 3.9 mmol/L (3.3-5.1); Sodium 139 mmol/L (135-145); Total Protein 7.1 g/dL (6.5-8.0)
== END 2024-07-20 09:29 | disposition home or self-care (01) ==
LOC: HO.10HDL 09:28
PROVIDERS: Visit Provider Internal Medicine
DX: E11.65 Type 2 diabetes mellitus with hyperglycemia (principal); J45.901 Unspecified asthma with (acute) exacerbation; R06.02 Shortness of breath
CPT/HCPCS: 36415; 80053; 83036

== ENCOUNTER 2024-07-22 08:15 | Outpatient (AMB) | payer OTHER, SELFPAY ==
[2024-07-22 08:17] VITALS: BP 94/82; PULSE 82; BMI 34.8
--- NOTE | 2024-07-22 08:17 | MHC.OFFVIS ---
Vital Signs 07/22/24 08:17 Height 5 ft 8 in Weight 228 lb 13.437 oz BMI 34.8 BP 94/82 Blood Pressure Location Lt brachial Position Sitting Pulse 82 Pulse Source Pulse Oximeter Intake Visit Reasons: DM/LVM Intake Note: Patient presents today for D2MT follow up visit. Last Diabetic Eye exam: 2 years ago Last Podiatry Visit: Doesn't have one Random Glucose: 157 mg/dl HgA1c: 9.9% 07/20/24 Fish Peddler Required: No Accompanied by: Self / Same As Patient Allergies metronidazole [From Flagyl] Allergy (Severe, Verified 07/22/24 08:22) Anaphylaxis canagliflozin [Invokana] Allergy (Unknown, Verified 07/22/24 08:22) rash liraglutide Allergy (Unknown, Verified 07/22/24 08:22) rash animals Allergy (Unknown, Uncoded 07/22/24 08:22) rash Pt states no known food allerg Allergy (Unknown, Uncoded 07/22/24 08:22) Unknown Medication List - Last Reconciled 07/22/24 by Beth Villalobos PA-C albuterol sulfate 90 mcg/actuation 2 puffs inhalation Q6H PRN albuterol sulfate 2.5 mg inhalation BID PRN amitriptyline 1 tab PO BEDTIME blood sugar diagnostic (FreeStyle Lite Strips) use daily As directed blood-glucose meter (FreeStyle Lite Meter kit) As directed blood-glucose sensor (Dexcom G7 Sensor device) As directed change every 10 days blood-glucose transmitter (Dexcom G6 Transmitter device) DIRECTED empagliflozin (Jardiance) 25 mg PO DAILY ergocalciferol (vitamin D2) 1,250 mcg PO WE@0900 insulin glargine (Lantus Solostar U-100 Insulin) 10 units (0.1 mL) subcut QPM lancets (FreeStyle Lancets) 5x/day metformin 1 tab PO BIDWM montelukast 10 mg PO BEDTIME nebulizers (Compact Compressor Nebulizer) As directed nebulizers (AeroEclipse II Nebulizer) As directed nystatin 600,000 units (6 mL) PO QID 10 days omalizumab (Xolair) 300 mg subcut Q2W 28 days omeprazole 40 mg PO DAILY@0630 pen needle, diabetic (Comfort EZ Pen [place]) As directed injects 4X/day prednisone 20 mg PO ONCE rosuvastatin 40 mg PO BEDTIME 90 days HPI HPI DM/LVM: Details: Patient is a 48-year-old female with a significant past medical history uncontrolled type 2 diabetes with long-term insulin use, hypertension, hyperlipidemia, asthma presenting today for a follow-up for diabetes. Endo: Her last A1c was 9. She is currently on Mounjaro 10 mg weekly, metformin 1000 mg twice a day, Jardiance 25 mg daily (did not tolerate a higher dose), lantus 10 units nightly. -She saw her pcp yesterday with complaints of epigastric pain that started about a week ago along with diarrhea. She states that her PCP recommended that she stopped the metformin and Mounjaro to see if symptoms improve. She states that she is willing to stop the metformin but does not want to stop the Mounjaro. What are symptoms started it did also start with a fever so she was wondering if it was possibly viral. She has been on prednisone a lot this summer and also wonders if this could be contributing. Denies any antibiotic use. States that her stomach feels like it is burning. Whenever she eats she has a sharp pain. She has not had diarrhea since yesterday when she stopped the metformin. She has not have pain if she pushes on her stomach but states that she just has some discomfort in general. Eating worsens it. She still has her gallbladder. Denies any vomiting but does have intermittent nausea with the pain. She states that she was tolerating the Mounjaro so she does not know why it would be related. She did travel recently to [place] but denies any known sick contacts. She states it does not matter what she is eating that causes the pain. She states that sometimes even water can trigger the pain. -while in [place] she was not really taking any of her diabetic medications. -she states at her PCP's office she also increase the Lantus to 20 units, which she took last night, and advised her to start taking mealtime insulin 3 units 3 times a day. Patient states that she has not picked this up yet from the pharmacy but is thinking about adding this. She states that it just makes her worried because she is not able to eat much with the pain. Reviewed her dexcom- 34% very high, 53% high, 12% in range, 1 % hypoglycemic. Her blood sugar was low 1 afternoon when she was not eating. She says that she had gone a long time without eating because of her pain. She is not on a statin or MALIA-inhibitor CV: Blood pressure today in the office is 98/82. She is asymptomatic denies any dizziness, chest pain or palpitations. Stopped the amlodipine a few weeks ago. States that this is now her normal blood pressure. 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 Diabetes type 2, uncontrolled Ectopic Hyperlipidemia Hypertension Diabetes Asthma Surgical History History of esophagogastroduodenoscopy (EGD) Hx of colonoscopy History of surgical procedure on mouth Hx of ectopic Family History Father Diabetes mellitus Stomach cancer Mother Diabetes mellitus Ovarian cancer Paternal Grandfather Colon cancer Paternal Aunt Liver cancer Paternal Aunt Liver cancer Social History Household Members: Family Housing: House Do you presently have visiting nurse or other home services: No Alcohol intake: never Patient Tobacco Use Status: Never used Tobacco Advance Directives Date on File: 07/15/22 service: No Current occupational status: employed Physical Exam Const Orientation/consciousness: patient oriented x3 Neck Neck: Yes no lymphadenopathy Thyroid: Thyroid normal Carotids: no bruits Resp Auscultation: clear to auscultation bilaterally Cardio Rate: regular rate Rhythm: regular rhythm Heart sounds: S1 normal heart sound present and S2 normal heart sound present Peripheral pulses: dorsalis pedis present GI Inspection: Yes normal to inspection Palpation (GI): Soft to palpation and Other GI palpation findings present (nontender, no cva tenderness) Auscultation: normoactive bowel sounds Rectal Exam - Female: deferred Neuro General: patient oriented x3, gait normal and no focal motor deficits Extrem Other: Monofilament sensation intact bilaterally. Vibratory sensation intact bilaterally. Skin intact. General: Yes normal to inspection Results Reviewed Results Reviewed: Laboratory Tests 07/20/24 09:35 Sodium 139 Potassium 3.9 Chloride 106 Carbon Dioxide 23 Anion Gap 14 BUN 11 Creatinine 0.62 Estimated GFR > 60 Hemoglobin A1c % 9.0 H Assessment & Plan Assessment & Plan (1) Diabetes type 2, uncontrolled: Code(s): E11.65 - Type 2 diabetes mellitus with hyperglycemia Category: Medical Qualifiers: Glycemic state: with hyperglycemia Qualified Code(s): E11.65 - Type 2 diabetes mellitus with hyperglycemia Plan: stopped metformin- ?diarrhea related increased lantus to 20 units start meal time insulin 3 units with meals. Rule of 15 reviewed. reduce dose of mounjaro, if pancreatic enzymes are elevated will stop. ?epigastric pain consistent with gastritis. use omeprazole as directed by pcp. f/u 1-2 week or sooner prn (2) correction (current) use of insulin: Code(s): Z79.4 - correction (current) use of insulin Category: Medical Plan: As above (3) Epigastric pain: Code(s): R10.13 - Epigastric pain Category: Medical Plan: Abdominal exam today is benign. This because she has not eaten. Advised her to follow up with PCP. Warning signs of abdominal pain were discussed. Advised that if anything worsens she should go to the ER. Advised her to start omeprazole. Labs ordered. We will follow up pending test results. Orders: Orders Lipase Today E11.65 - Type 2 diabetes mellitus with hyperglycemia, R10.13 - Epigastric pain, Z79.4 - medical terminologist (current) use of insulin Amylase Today E11.65 - Type 2 diabetes mellitus with hyperglycemia, R10.13 - Epigastric pain, Z79.4 - medical terminologist (current) use of insulin Comprehensive Met. Panel Today E11.65 - Type 2 diabetes mellitus with hyperglycemia, R10.13 - Epigastric pain, Z79.4 - medical terminologist (current) use of insulin Complete Blood Count Auto Diff Today E11.65 - Type 2 diabetes mellitus with hyperglycemia, R10.13 - Epigastric pain, Z79.4 - medical terminologist (current) use of insulin Medications: New tirzepatide (Mounjaro) 7.5 mg (0.5 mL) subcut QWEEK 2 mL 1RF Changed From insulin glargine (Lantus Solostar U-100 Insulin) 10 units (0.1 mL) subcut QPM 15 mL 5RF To insulin glargine (Lantus Solostar U-100 Insulin) 20 units (0.2 mL) subcut QPM 15 mL 5RF Coding Level of Care Code Est Pt Level 4 (88624) Complex EM visit Add On G2211 Diagnoses Uncontrolled type 2 diabetes mellitus with hyperglycemia E11.65 Glycemic state: with hyperglycemia medical terminologist (current) use of insulin Z79.4 Epigastric pain R10.13
[2024-07-22 08:38] LABS: Glucose, Whole Blood 157 mg/dL (60-115)
== END 2024-07-22 08:50 | disposition home or self-care (01) ==
PROVIDERS: PCP Internal Medicine; Visit Provider Physician Assistant
DX: E11.65 Type 2 diabetes mellitus with hyperglycemia (principal); Z79.4 Long term (current) use of insulin; R10.13 Epigastric pain
CPT/HCPCS: 99214

== ENCOUNTER → 2024-07-22 08:15 | Outpatient (BNVA) | payer OTHER, SELFPAY | PROVIDERS: PCP Internal Medicine; Visit Provider Physician Assistant | DX: E11.65 Type 2 diabetes mellitus with hyperglycemia (principal); R10.13 Epigastric pain; Z79.4 Long term (current) use of insulin; Z79.85 Long-term (current) use of injectable non-insulin antidiabetic drugs | CPT/HCPCS: 82947 ==

== ENCOUNTER 2024-07-22 08:53 | Outpatient (REF) | payer OTHER, SELFPAY ==
[2024-07-22 10:46] LABS: MANUAL DIFF FLAG NO
[2024-07-22 10:49] LABS: Basophils Absolute Auto 0.1 X10*3/uL (0.0-0.2); Basophils Percent Auto 0.7 % (0-2); Eosinophils Absolute Auto 0.1 X10*3/uL (0.0-0.4); Hematocrit 46.1 % (37.0-47.0); Hemoglobin 15.3 g/dl (12.0-16.0); Imm Gran Abs Auto 0.01 X10*3/uL (0.00-0.03); Imm Gran Pct Auto 0.1 % (0.0-0.4); Lymphocytes Absolute Auto 2.9 X10*3/uL (1.2-4.9); Lymphocytes Percent Auto 37.8 % (20-40); Mean Corpuscular HGB Conc 33.2 g/dl (31.0-35.0); Mean Corpuscular Hemoglobin 26.8 pg (27.0-33.0); Mean Corpuscular Volume 80.9 fL (80.0-98.0); Mean Platelet Volume 9.7 fL (9.4-12.3); Monocytes Absolute Auto 0.5 X10*3/uL (0.1-1.2); Monocytes Percent Auto 6.1 % (2-11); Neutrophils Absolute Auto 4.2 x10*3/uL (2.0-8.3); Neutrophils Percent Auto 54.3 % (45-73); Platelet Count 316 X10*3/uL (160-400); Red Cell Distribution Width 14.1 % (11.0-16.0); White Blood Count 7.7 X10*3/uL (4.8-10.8)
[2024-07-22 11:09] LABS: Alanine Aminotransferase 52 U/L (0-31); Albumin Level 4.3 g/dL (3.5-5.0); Alkaline Phosphatase 97 U/L (39-117); Anion Gap 16 (12-20); Aspartate Amino Transferase 28 U/L (5-31); Bilirubin Total 1.2 mg/dL (0.0-1.0); Blood Urea Nitrogen 11 mg/dL (9-16); Calcium 9.7 mg/dL (8.4-10.2); Carbon Dioxide 24 mmol/L (22-29); Chloride 104 mmol/L (96-108); Estimated Glomerular Filt Rate > 60; Glucose Random 170 mg/dL (60-115); Lipase 29 U/L (8-78); Potassium 3.9 mmol/L (3.3-5.1); Sodium 140 mmol/L (135-145); Total Protein 7.5 g/dL (6.5-8.0)
[2024-07-22 11:32] LABS: Amylase 40 U/L (28-100)
== END 2024-07-22 08:54 | disposition home or self-care (01) ==
LOC: HO.10HDL 08:53
PROVIDERS: Visit Provider Physician Assistant
DX: R10.13 Epigastric pain (principal); E11.65 Type 2 diabetes mellitus with hyperglycemia; Z79.4 Long term (current) use of insulin
CPT/HCPCS: 36415; 80053; 82150; 83690; 85025

== ENCOUNTER 2024-08-05 08:07 | Outpatient (AMB) | payer OTHER, SELFPAY ==
--- NOTE | 2024-08-05 08:10 | MHC.OFFVIS ---
Vital Signs 08/05/24 08:11 Height 5 ft 8 in Weight 230 lb 6.129 oz BMI 35.0 BP 118/76 Blood Pressure Location Lt brachial Position Sitting Pulse 85 Pulse Source Pulse Oximeter Intake Visit Reasons: DM/LVM Intake Note: Patient presents today for D2MT follow up visit. Last Diabetic Eye exam: Over 1 year Last Podiatry Visit: Doesn't have one Random Glucose: 135 mg/dl HgA1c: 9.0% 07/20/24 Facilities Planner Required: No Accompanied by: Self / Same As Patient Allergies metronidazole [From Flagyl] Allergy (Severe, Verified 08/05/24 08:20) Anaphylaxis canagliflozin [Invokana] Allergy (Unknown, Verified 08/05/24 08:20) rash liraglutide Allergy (Unknown, Verified 08/05/24 08:20) rash animals Allergy (Unknown, Uncoded 08/05/24 08:20) rash Pt states no known food allerg Allergy (Unknown, Uncoded 08/05/24 08:20) Unknown Medication List - Last Reconciled 08/05/24 by Beth Villalobos PA-C albuterol sulfate 90 mcg/actuation 2 puffs inhalation Q6H PRN albuterol sulfate 2.5 mg inhalation BID PRN amitriptyline 1 tab PO BEDTIME blood sugar diagnostic (FreeStyle Lite Strips) use daily As directed blood-glucose meter (FreeStyle Lite Meter kit) As directed blood-glucose sensor (Dexcom G7 Sensor device) As directed change every 10 days blood-glucose transmitter (Dexcom G6 Transmitter device) DIRECTED empagliflozin (Jardiance) 25 mg PO DAILY ergocalciferol (vitamin D2) 1,250 mcg PO WE@0900 insulin glargine (Lantus Solostar U-100 Insulin) 20 units (0.2 mL) subcut QPM lancets (FreeStyle Lancets) 5x/day montelukast 10 mg PO BEDTIME nebulizers (Compact Compressor Nebulizer) As directed nebulizers (AeroEclipse II Nebulizer) As directed nystatin 600,000 units (6 mL) PO QID 10 days omalizumab (Xolair) 300 mg subcut Q2W 28 days omeprazole 40 mg PO DAILY@0630 pen needle, diabetic (Comfort EZ Pen [place]) As directed injects 4X/day prednisone 20 mg PO ONCE rosuvastatin 40 mg PO BEDTIME 90 days tirzepatide (Mounjaro) 7.5 mg (0.5 mL) subcut QWEEK HPI HPI DM/LVM: Details: Patient is a 48-year-old female with a significant past medical history uncontrolled type 2 diabetes with long-term insulin use, hypertension, hyperlipidemia, asthma presenting today for a follow-up for diabetes. Endo: Her last A1c was 9. At the last visit we stopped the metformin due to diarrhea. Started her on mealtime insulin. She is currently on Mounjaro 10 mg weekly, Jardiance 25 mg daily (did not tolerate a higher dose), lantus 20 units nightly. -I sent her in 7.5 mg to try but she can't get this until the end of the month so she is going to trial the 10 mg mounjaro now that her stomach feels beter. she states she thinks the GI upset was from the metformin. Reviewed her dexcom- 10% very high, 65% high, 25% in range, 0 % hypoglycemic. She is not on a statin or MALIA-inhibitor CV: Blood pressure today in the office is 118/76 Stopped the amlodipine a few weeks ago. States that this is now her normal blood pressure. [facility] Medical History (Updated 08/05/24 @ 08:31 by Beth Villalobos PA-C) Anxiety Environmental allergies Eosinophilia Obesity due to excess calories Vitamin D deficiency Diabetic 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 with type 2 diabetes mellitus cena (current) use of insulin Diabetes type 2, uncontrolled Ectopic Hyperlipidemia Hypertension Asthma Surgical History History of esophagogastroduodenoscopy (EGD) Hx of colonoscopy History of surgical procedure on mouth Hx of ectopic Family History Father Diabetes mellitus Stomach cancer Mother Diabetes mellitus Ovarian cancer Paternal Grandfather Colon cancer Paternal Aunt Liver cancer Paternal Aunt Liver cancer Social History Household Members: Family Housing: House Do you presently have visiting nurse or other home services: No Alcohol intake: never Patient Tobacco Use Status: Never used Tobacco Advance Directives Date on File: 07/15/22 service: No Current occupational status: employed Physical Exam Const Orientation/consciousness: patient oriented x3 Neck Neck: Yes no lymphadenopathy Thyroid: Thyroid normal Carotids: no bruits Resp Auscultation: clear to auscultation bilaterally Cardio Rate: regular rate Rhythm: regular rhythm Heart sounds: S1 normal heart sound present and S2 normal heart sound present Peripheral pulses: dorsalis pedis present Neuro General: patient oriented x3, gait normal and no focal motor deficits Extrem Other: Monofilament sensation intact bilaterally. Vibratory sensation intact bilaterally. Skin intact. General: Yes normal to inspection Results Reviewed Results Reviewed: Laboratory Tests 07/20/24 07/22/24 09:35 09:00 Sodium 140 Potassium 3.9 Chloride 104 Carbon Dioxide 24 Anion Gap 16 BUN 11 Creatinine 0.66 Estimated GFR > 60 Random Glucose 170 H Hemoglobin A1c % 9.0 H Assessment & Plan Assessment & Plan (1) Diabetes type 2, uncontrolled: Code(s): E11.65 - Type 2 diabetes mellitus with hyperglycemia Category: Medical Qualifiers: Glycemic state: with hyperglycemia Qualified Code(s): E11.65 - Type 2 diabetes mellitus with hyperglycemia Plan: continue current plan. follow up in 2 months or sooner prn. Medications: New insulin lispro (Humalog KwikPen (U-100) Insulin) 3 units (0.03 mL) subcut TID 90 days 15 mL 1RF pen needle, diabetic (BD Ultra-Fine Mini Pen Needle) use 4x a day As directed 100 ea 5RF Refilled blood sugar diagnostic (FreeStyle Lite Strips) use daily As directed 100 ea 2RF E11.65 - Type 2 diabetes mellitus with hyperglycemia, Z79.4 - [facility] (current) use of insulin Coding Level of Care Code Est Pt Level 4 (72303) Diagnoses Uncontrolled type 2 diabetes mellitus with hyperglycemia E11.65 Glycemic state: with hyperglycemia
[2024-08-05 08:11] VITALS: BP 118/76; PULSE 85; BMI 35.0
[2024-08-05 08:22] LABS: Glucose, Whole Blood 135 mg/dL (60-115)
== END 2024-08-05 08:39 | disposition home or self-care (01) ==
PROVIDERS: PCP Internal Medicine; Visit Provider Physician Assistant
DX: E11.65 Type 2 diabetes mellitus with hyperglycemia (principal)

== ENCOUNTER → 2024-08-05 08:07 | Outpatient (BNVA) | payer OTHER, SELFPAY | PROVIDERS: PCP Internal Medicine; Visit Provider Physician Assistant | DX: E11.65 Type 2 diabetes mellitus with hyperglycemia (principal) | CPT/HCPCS: 82947 ==

== ENCOUNTER 2024-08-24 08:55 | Outpatient (AMB) | payer OTHER, SELFPAY ==
[2024-08-24 08:58] VITALS: BP 138/84; PULSE 78; O2SAT 98; BMI 35.4
--- NOTE | 2024-08-24 08:58 | A.OFFVIS_ITS ---
Vital Signs 08/24/24 08:58 Height 5 ft 8 in Weight 232 lb 9.403 oz BMI 35.4 BP 138/84 Blood Pressure Location Lt brachial Position Sitting Pulse 78 Pulse Source Doppler Pulse Oximetry (%) 98 Intake Visit Reasons: Asthma Allergies metronidazole [From Flagyl] Allergy (Severe, Verified 08/24/24 09:04) Anaphylaxis canagliflozin [Invokana] Allergy (Unknown, Verified 08/24/24 09:04) rash liraglutide Allergy (Unknown, Verified 08/24/24 09:04) rash animals Allergy (Unknown, Uncoded 08/05/24 08:20) rash Pt states no known food allerg Allergy (Unknown, Uncoded 08/05/24 08:20) Unknown HPI HPI Asthma: Details: 48-year-old lady, nonsmoker, followed for underlying moderate to severe persistent asthma significant allergic component.? Previously she has been using Xolair, Trelegy, and albuterol MDI with excellent control of her symptoms.? Unfortunately she had to leave to take care of her mother in [place] but some in his missed her Xolair injections. She is interested in restarting them. She denies acute exacerbations. 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 Diabetes type 2, uncontrolled Ectopic Hyperlipidemia Hypertension Asthma Surgical History History of esophagogastroduodenoscopy (EGD) Hx of colonoscopy History of surgical procedure on mouth Hx of ectopic Family History Father Diabetes mellitus Stomach cancer Mother Diabetes mellitus Ovarian cancer Paternal Grandfather Colon cancer Paternal Aunt Liver cancer Paternal Aunt Liver cancer Social History Household Members: Family Housing: House Do you presently have visiting nurse or other home services: No Alcohol intake: never Patient Tobacco Use Status: Never used Tobacco Advance Directives Date on File: 07/15/22 service: No Current occupational status: employed Review of Systems Const Denies daytime sleepiness, Denies excessive sweating, Denies fatigue, Denies fever(s), Denies lethargy, Denies malaise, Denies night sweats, Denies snoring and Denies weight loss Eyes Denies blurry vision and Denies itchy eyes ENT Denies nasal congestion, Denies post nasal drip, Denies sinus pain, Denies sinus pressure and Denies other ( Thrush) Card Denies chest pain, Denies pedal edema, Denies dyspnea, Denies orthopnea and Denies paroxysmal nocturnal dyspnea Resp Denies cough, Denies hemoptysis, Denies excessive phlegm production, Denies dyspnea, Denies snoring and Denies wheezing GI Denies abdominal pain and Denies heartburn Musc Denies myalgias, Denies arthralgias and Denies joint swelling Skin/Breast Denies rash Neuro Denies memory loss and Denies seizure-like activity Psych Denies abnormal sleep pattern, Denies anxiety and Denies memory loss Endo Denies excessive sweating, Denies fatigue and Denies heat intolerance Jeffrey/Lymph Denies easy bruising Aller/Immun Denies itchy eyes, Denies seasonal rhinorrhea and Denies wheezing Physical Exam Vital Signs: Last Vital Signs Pulse 78 08/24/24 08:58 BP 138/84 08/24/24 08:58 Pulse Ox 98 08/24/24 08:58 BMI result Body Mass Index 35.4 Const General: no acute distress and alert Nutritional Appearance: obese Orientation/consciousness: Other orientation findings ( oriented) HEENT Head: Yes atraumatic Eyes General: appearance normal, both eyes and all related structures Sclerae: sclerae normal EOM: EOMs intact bilaterally Neck Neck: Yes supple Lymphatic: no lymphadenopathy noted Resp Effort & Inspection: normal respiratory effort and no use of accessory muscles Auscultation: clear to auscultation bilaterally Cardio Rate: regular rate Rhythm: regular rhythm Heart sounds: no gallops, no murmurs and no rubs Skin General skin exam: other ( warm) Extrem General: No clubbing, No cyanosis and No edema Assessment & Plan Assessment & Plan (1) Severe persistent asthma: Code(s): J45.50 - Severe persistent asthma, uncomplicated Category: Medical Plan: Previously well controlled on Xolair, trilogy, albuterol MDI, and nebs. Patient is Xolair over the summer secondary to traveling to [place]. Restart Xolair. Continue baseline regimen. (2) Environmental allergies: Code(s): Z91.09 - Other allergy status, other than to drugs and biological substances Category: Medical Plan: Expect to improve after restarting Xolair. Coding Level of Care Code Est Pt Level 4 (49782) Complex EM visit Add On G2211 Diagnoses Severe persistent asthma J45.50 Environmental allergies Z91.09
== END 2024-08-24 09:15 | disposition home or self-care (01) ==
PROVIDERS: PCP Internal Medicine; Visit Provider Internal Medicine Pulmonary Disease
DX: J45.50 Severe persistent asthma, uncomplicated (principal); Z91.09 Other allergy status, other than to drugs and biological substances
CPT/HCPCS: 99214

== ENCOUNTER → 2024-08-24 08:55 | Outpatient (BNVA) | payer OTHER, SELFPAY | PROVIDERS: PCP Internal Medicine; Visit Provider Internal Medicine Pulmonary Disease ==

== ENCOUNTER 2024-10-17 08:19 | Outpatient (AMB) | payer OTHER, SELFPAY ==
--- NOTE | 2024-10-17 08:21 | MHC.OFFVIS ---
Vital Signs 10/17/24 08:40 Height 5 ft 8 in Weight 231 lb 0.711 oz BMI 35.1 BP 148/88 H Blood Pressure Location Lt brachial Position Sitting Pulse 82 Pulse Source Pulse Oximeter Intake Visit Reasons: DM/LVM Intake Note: Patient presents today for D2MT follow up visit. 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 Accompanied by: Self / Same As Patient Allergies metronidazole [From Flagyl] Allergy (Severe, Verified 10/17/24 08:45) Anaphylaxis canagliflozin [Invokana] Allergy (Unknown, Verified 10/17/24 08:45) rash liraglutide Allergy (Unknown, Verified 10/17/24 08:45) rash animals Allergy (Unknown, Uncoded 10/17/24 08:45) rash Pt states no known food allerg Allergy (Unknown, Uncoded 10/17/24 08:45) Unknown Medication List - Last Reconciled 10/17/24 by Beth Villalobos PA-C albuterol sulfate 90 mcg/actuation 2 puffs inhalation Q6H PRN albuterol sulfate 2.5 mg inhalation BID PRN amitriptyline 1 tab PO BEDTIME blood sugar diagnostic (FreeStyle Lite Strips) use daily As directed blood-glucose meter (FreeStyle Lite Meter kit) As directed blood-glucose sensor (Dexcom G7 Sensor device) As directed change every 10 days blood-glucose transmitter (Dexcom G6 Transmitter device) DIRECTED empagliflozin (Jardiance) 25 mg PO DAILY ergocalciferol (vitamin D2) 1,250 mcg PO WE@0900 insulin glargine (Lantus Solostar U-100 Insulin) 10 units subcut QPM lancets (FreeStyle Lancets) 5x/day montelukast 10 mg PO BEDTIME nebulizers (Compact Compressor Nebulizer) As directed nebulizers (AeroEclipse II Nebulizer) As directed nystatin 600,000 units (6 mL) PO QID 10 days omalizumab (Xolair) 300 mg subcut Q2W 28 days omeprazole 40 mg PO DAILY@0630 pen needle, diabetic (Comfort EZ Pen [place]) As directed injects 4X/day pen needle, diabetic (BD Ultra-Fine Mini Pen Needle) use 4x a day As directed prednisone 20 mg PO ONCE rosuvastatin 40 mg PO BEDTIME 90 days HPI HPI DM/LVM: Details: Patient is a 48-year-old female with a significant past medical history uncontrolled type 2 diabetes with long-term insulin use, hypertension, hyperlipidemia, asthma presenting today for a follow-up for diabetes. Endo: Her last A1c was 9. At the last visit we stopped the metformin due to diarrhea. She is currently on Mounjaro 10 mg weekly, Jardiance 25 mg daily (did not tolerate a higher dose). She was supposed to be on lantus 20 units and humalog 3 units tid but states that she stopped using her insulin 3 weeks ago due to hypoglycemia. She is eating less with mounjaro. Tolerating Mounjaro well. No side effects. She is tolerating mounjaro and wants to increase the dose. She is losing weight and had cut out carbs Reviewed her dexcom- 1% very high, 39% high, 60% in range, 0 % hypoglycemic. Avg glucose 163 CV: Blood pressure today in the office is 148/88. She states that it is normally normal but she was stressed because she showed of 20 minutes late for her appointment. Cholesterol is controlled with rosuvastatin 40 mg. No myalgias. 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 Diabetes type 2, uncontrolled Ectopic Hyperlipidemia Hypertension Asthma Surgical History History of esophagogastroduodenoscopy (EGD) Hx of colonoscopy History of surgical procedure on mouth Hx of ectopic Family History Father Diabetes mellitus Stomach cancer Mother Diabetes mellitus Ovarian cancer Paternal Grandfather Colon cancer Paternal Aunt Liver cancer Paternal Aunt Liver cancer Social History Household Members: Family Housing: House Do you presently have visiting nurse or other home services: No Alcohol intake: never Patient Tobacco Use Status: Never used Tobacco Advance Directives Date on File: 07/15/22 service: No Current occupational status: employed Physical Exam Const Orientation/consciousness: patient oriented x3 Neck Neck: Yes no lymphadenopathy Thyroid: Thyroid normal Carotids: no bruits Resp Auscultation: clear to auscultation bilaterally Cardio Rate: regular rate Rhythm: regular rhythm Heart sounds: S1 normal heart sound present and S2 normal heart sound present Peripheral pulses: dorsalis pedis present Neuro General: patient oriented x3, gait normal and no focal motor deficits Results Reviewed Results Reviewed: Laboratory Tests 07/22/24 08/05/24 09:00 08:17 Sodium 140 Potassium 3.9 Chloride 104 Carbon Dioxide 24 Anion Gap 16 BUN 11 Creatinine 0.66 Estimated GFR > 60 Glucose (Clinic) 135 H Assessment & Plan Assessment & Plan (1) Diabetes type 2, uncontrolled: Code(s): E11.65 - Type 2 diabetes mellitus with hyperglycemia Category: Medical Qualifiers: Glycemic state: with hyperglycemia Qualified Code(s): E11.65 - Type 2 diabetes mellitus with hyperglycemia Plan: d/c insulin increase mounjaro to 12.5 mg weekly continue jardiance labs ordered, f/u 3 months prn (2) Hypertension: Code(s): I10 - Essential (primary) hypertension Category: Medical Qualifiers: Hypertension type: essential hypertension Qualified Code(s): I10 - Essential (primary) hypertension Plan: A little elevated above goal today- states she was stressed because she was 20 min late. We will recheck at our follow up. (3) Hyperlipidemia: Code(s): E78.5 - Hyperlipidemia, unspecified Category: Medical Qualifiers: Hyperlipidemia type: pure hypercholesterolemia Qualified Code(s): E78.00 - Pure hypercholesterolemia, unspecified Plan: Continue rosuvastatin 40 mg Orders: Orders Lipid Panel Today E11.65 - Type 2 diabetes mellitus with hyperglycemia, E78.00 - Pure hypercholesterolemia, unspecified, I10 - Essential (primary) hypertension Hemoglobin A1c Today E11.65 - Type 2 diabetes mellitus with hyperglycemia, E78.00 - Pure hypercholesterolemia, unspecified, I10 - Essential (primary) hypertension Microalbumin, Random (w Creat) Today E11.65 - Type 2 diabetes mellitus with hyperglycemia, E78.00 - Pure hypercholesterolemia, unspecified, I10 - Essential (primary) hypertension Comprehensive [place]. Panel Fast Today E11.65 - Type 2 diabetes mellitus with hyperglycemia, E78.00 - Pure hypercholesterolemia, unspecified, I10 - Essential (primary) hypertension Medications: New tirzepatide (Mounjaro) 12.5 mg (0.5 mL) subcut QWEEK 2 mL 5RF Changed From insulin glargine (Lantus Solostar U-100 Insulin) 20 units (0.2 mL) subcut QPM 15 mL 5RF To insulin glargine (Lantus Solostar U-100 Insulin) 10 units subcut QPM Refilled blood-glucose sensor (Dexcom G7 Sensor device) As directed change every 10 days 3 ea 5RF Discontinued blood-glucose transmitter (Dexcom G6 Transmitter device) Discontinued Reason: Doctor's Order DIRECTED 1 ea 0RF Coding Level of Care Code Est Pt Level 4 (80874) Complex EM visit Add On G2211 Diagnoses Uncontrolled type 2 diabetes mellitus with hyperglycemia E11.65 Glycemic state: with hyperglycemia Essential hypertension I10 Hypertension type: essential hypertension Pure hypercholesterolemia E78.00 Hyperlipidemia type: pure hypercholesterolemia
[2024-10-17 08:40] VITALS: BP 148/88; PULSE 82; BMI 35.1
[2024-10-17 08:52] LABS: Glucose, Whole Blood 136 mg/dL (60-115)
== END 2024-10-17 09:04 | disposition home or self-care (01) ==
PROVIDERS: PCP Internal Medicine; Visit Provider Physician Assistant
DX: E11.65 Type 2 diabetes mellitus with hyperglycemia (principal); I10 Essential (primary) hypertension; E78.00 Pure hypercholesterolemia, unspecified

== ENCOUNTER → 2024-10-17 08:19 | Outpatient (BNVA) | payer OTHER, SELFPAY | PROVIDERS: PCP Internal Medicine; Visit Provider Physician Assistant | DX: E11.65 Type 2 diabetes mellitus with hyperglycemia (principal); I10 Essential (primary) hypertension; E78.00 Pure hypercholesterolemia, unspecified; Z79.899 Other long term (current) drug therapy | CPT/HCPCS: 82947 ==

== ENCOUNTER 2024-10-19 07:22 | Emergency (ER) | payer OTHER, SELFPAY ==
--- NOTE | ~2024-10-19 | XR_ITS ---
EXAMINATION: XR CHEST CLINICAL INFORMATION: Cough. COMPARISON: CT chest 04/18/2024, chest radiographs of 04/14/2024 and 04/02/2024. TECHNIQUE: 2 views of the chest were obtained. FINDINGS: Mild dextroscoliosis of the thoracic spine with multilevel degenerative changes. Heart size is normal. There is no gross pneumothorax. No significant pleural effusion. No new focal consolidation. Degenerative changes cervical spine. XR/XR chest 2V IMPRESSION: No new focal consolidation to suggest pneumonia. This study was presented today, October 19, 2024, for interpretation. Stat results provided at this time as requested by referring provider. Electronically signed by: Rhiannon Spicer MD 10/19/2024 10:33 AM [facility]
[2024-10-19 07:34] VITALS: BP 192/108; PULSE 88; RESP 24; TEMP 36.1; O2SAT 95; BMI 32.9
[2024-10-19 07:59] LABS: MANUAL DIFF FLAG NO
[2024-10-19 08:00] LABS: Basophils Percent Auto 0.4 % (0-2); Eosinophils Absolute Auto 0.4 X10*3/uL (0.0-0.4); Eosinophils Percent Auto 4.1 % (0-4); Hematocrit 43.3 % (37.0-47.0); Hemoglobin 14.8 g/dl (12.0-16.0); Imm Gran Abs Auto 0.02 X10*3/uL (0.00-0.03); Imm Gran Pct Auto 0.2 % (0.0-0.4); Lymphocytes Absolute Auto 3.5 X10*3/uL (1.2-4.9); Lymphocytes Percent Auto 39.4 % (20-40); Mean Corpuscular HGB Conc 34.2 g/dl (31.0-35.0); Mean Corpuscular Hemoglobin 28.1 pg (27.0-33.0); Mean Corpuscular Volume 82.2 fL (80.0-98.0); Mean Platelet Volume 9.3 fL (9.4-12.3); Monocytes Absolute Auto 0.5 X10*3/uL (0.1-1.2); Monocytes Percent Auto 5.7 % (2-11); Neutrophils Absolute Auto 4.5 x10*3/uL (2.0-8.3); Neutrophils Percent Auto 50.2 % (45-73); Platelet Count 320 X10*3/uL (160-400); Red Blood Count 5.27 X10*6/uL (4.20-5.50); Red Cell Distribution Width 13.7 % (11.0-16.0); White Blood Count 8.9 X10*3/uL (4.8-10.8)
[2024-10-19 08:21] LABS: Alanine Aminotransferase 32 U/L (0-31); Albumin Level 3.9 g/dL (3.5-5.0); Alkaline Phosphatase 87 U/L (39-117); Anion Gap 12 (12-20); Aspartate Amino Transferase 27 U/L (5-31); Bilirubin Direct 0.2 mg/dL (0.0-0.5); Bilirubin Total 0.8 mg/dL (0.0-1.0); Blood Urea Nitrogen 8 mg/dL (9-16); Calcium 9.4 mg/dL (8.4-10.2); Carbon Dioxide 26 mmol/L (22-29); Chloride 105 mmol/L (96-108); Creatinine Clr Calc Pharmacy 130.7; Estimated Glomerular Filt Rate > 60; Glucose Random 158 mg/dL (60-115); Lipase 30 U/L (8-78); Potassium 4.2 mmol/L (3.3-5.1); Sodium 139 mmol/L (135-145); Total Protein 7.2 g/dL (6.5-8.0)
--- NOTE | 2024-10-19 08:41 | ED_ITS ---
HPI - SOB/Dyspnea General Chief Complaint: Dyspnea Stated Complaint: asthma Time Seen by Provider: 10/19/24 08:17 Source: patient, RN notes reviewed and old records reviewed History of Present Illness ED Provider: Valeria Xie PA-C HPI Narrative: 48-year-old female with a past medical history of anxiety, vitamin-D deficiency, diabetes, diabetic neuropathy, HLD, HTN, asthma, presenting to the ED complaining of dry, SOB, chest tightness, headache, left ear pain x yesterday. Admits recently traveled to [place], arrived home on Thursday. 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 Denies fever, chills, sick contacts, recent swimming, difficulty or inability to swallow, pedal edema Related Data Home Medications ?Medication ?Instructions ?Recorded ?Confirmed amitriptyline 25 mg tablet 1 tab PO BEDTIME 07/14/22 10/17/24 albuterol sulfate 2.5 mg/3 mL 2.5 mg inhalation BID PRN 08/08/22 10/17/24 (0.083 %) solution for nebulization Shortness Of Breath Or Wheezing albuterol sulfate 90 mcg/actuation 2 puff inhalation Q6H PRN 04/14/24 10/17/24 aerosol inhaler shortness of breath or wheezing ergocalciferol (vitamin D2) 1,250 1,250 mcg PO WE@0900 04/14/24 10/17/24 mcg (50,000 unit) capsule prednisone 20 mg tablet 20 mg PO ONCE 04/14/24 10/17/24 insulin glargine 100 unit/mL (3 10 unit subcut QPM 10/17/24 10/17/24 mL) subcutaneous pen (Lantus Solostar U-100 Insulin) Previous Rx's ?Medication ?Instructions ?Recorded nebulizers (AeroEclipse II #1 ea 12/22/20 Nebulizer) nebulizers (Compact Compressor #1 ea 12/31/20 Nebulizer) rosuvastatin 40 mg tablet 40 mg PO BEDTIME 90 days #90 tabs 03/13/21 omalizumab 150 mg subcutaneous 300 mg subcut Q2W 28 days #4 ea 08/12/22 solution (Xolair) pen needle, diabetic 32 gauge x #100 ea 03/12/23/ (Comfort EZ Pen [place]) montelukast 10 mg tablet 10 mg PO BEDTIME #90 tabs 04/19/24 nystatin 100,000 unit/mL oral 600,000 unit (6 mL) PO QID 10 days 04/19/24 suspension #240 mL omeprazole 40 mg capsule,delayed 40 mg PO DAILY@0630 #90 caps 04/19/24 release blood-glucose meter (FreeStyle #1 ea 06/10/24 Lite Meter kit) empagliflozin 25 mg tablet 25 mg PO DAILY #90 tabs 06/10/24 (Jardiance) lancets 28 gauge (FreeStyle #200 ea 06/10/24 Lancets) blood sugar diagnostic (FreeStyle #100 ea 08/05/24 Lite Strips) pen needle, diabetic 31 gauge x #100 ea 08/05/24 3/16 (BD Ultra-Fine Mini Pen Needle) blood-glucose sensor (Dexcom G7 #3 ea 10/17/24 Sensor device) tirzepatide 12.5 mg/0.5 mL 12.5 mg (0.5 mL) subcut QWEEK #2 mL 10/17/24 subcutaneous pen injector ([place]) albuterol sulfate 2.5 mg/0.5 mL 5 mg inhalation Q4H PRN shortness 10/19/24 solution for nebulization of breath or wheezing #30 ea prednisone 20 mg tablet 40 mg (2 x 20 mg) PO DAILY 5 days 10/19/24 #10 tabs Allergies Allergy/AdvReac Type Severity Reaction Status Date / Time metronidazole [From Flagyl] Allergy Severe Anaphylaxis Verified 10/19/24 07:35 canagliflozin [Invokana] Allergy Unknown rash Verified 10/19/24 07:35 liraglutide Allergy Unknown rash Verified 10/19/24 07:35 animals Allergy Unknown rash Uncoded 10/17/24 08:45 Pt states no known food Allergy Unknown Unknown Uncoded 10/17/24 08:45 allerg Review of Systems 2 Review of Systems: Yes all other systems are reviewed and are negative Constitutional: Constitutional: Reports as per [facility] Past Medical History Attestation statement: The following information was validated with the patient. 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 Diabetes type 2, uncontrolled Ectopic Hyperlipidemia Hypertension Asthma Surgical History History of esophagogastroduodenoscopy (EGD) Hx of colonoscopy History of surgical procedure on mouth Hx of ectopic Family History Family History Father Diabetes mellitus Stomach cancer Mother Diabetes mellitus Ovarian cancer Paternal Grandfather Colon cancer Paternal Aunt Liver cancer Paternal Aunt Liver cancer Social History Social History Household Members: Family Housing: House Do you presently have visiting nurse or other home services: No Alcohol intake: never Patient Tobacco Use Status: Never used Tobacco Smoked in Last 30 Days: No Use of substances other than those prescribed or required for medical reasons: No Advance Directives: Yes Advance Directives on File: Yes Advance Directives Date on File: 07/15/22 Do you have a plan to hurt others: No Plan Patient : No service: No Current occupational status: employed Physical Exam 2 Vital Signs: Vital Signs: Last Vital Signs Temp 98.0 F 10/19/24 12:26 Pulse 83 10/19/24 12:26 Resp 18 10/19/24 12:26 BP 0/0 L 10/19/24 12:26 Pulse Ox 98 10/19/24 12:26 O2 Del Method Room Air 10/19/24 12:26 BMI result Body Mass Index 32.9 Const: General: cooperative, healthy appearing and no acute distress O rientation/consciousness: patient oriented x3 Limitations: no limitations HEENT: Head: Yes normal to inspection and Yes atraumatic Ears: hearing grossly normal bilaterally, external ears normal, TM's normal bilaterally and mastoids normal General nose exam: Normal external nose present Face and sinus: Yes normal facial exam Mouth: Normal oral and palatal mucosa present and no drooling Throat: Yes posterior oropharynx normal, Yes tonsils normal, Yes uvula midline, No peritonsillar mass, No uvula laterally displaced and No uvular edema Eyes: General: appearance normal, both eyes and all related structures EOM: EOMs intact bilaterally Neck: Neck: Yes normal visual inspection, Yes no lymphadenopathy, Yes no meningeal signs and No anterior neck swelling Resp: Effort & Inspection: normal respiratory effort, no respiratory distress and no stridor Auscultation: wheezes expiratory wheezes and throughout Cardio: Rate: regular rate Heart sounds: S1 normal heart sound present and S2 normal heart sound present GI: Inspection: Yes normal to inspection Palpation (GI): Soft to palpation, nontender, no guarding and not rigid : General: Yes no CVA tenderness Back/Spine/Pelvis: Back: no CVA tenderness Skin: Rashes: no rashes Wounds: no wounds Neuro: General: patient oriented x3, tone normal and no meningeal signs C ranial nerves: Yes CN's II-XII intact bilaterally Gait exam (Neuro): Normal gait present Extrem: General: Yes normal to inspection, Yes no pedal edema and Yes no calf tenderness Course Course Course Narrative: - labs reassuring. Troponin negative. Viral studies and rapid strep negative XR chest 2V IMPRESSION: No new focal consolidation to suggest pneumonia. This study was presented today, October 19, 2024, for interpretation. Stat results provided at this time as requested by referring provider. > 1200-- on re-evaluation patient reports symptomatic improvement. Lungs CTA. Safe for discharge home at this time. Results discussed with patient including worrisome signs and symptoms and strict return precautions, and when to return to the emergency department. They verbalized understanding and feel safe for discharge at this time. Medications Administered Discontinued Medications Generic Name Dose Route Start Last Admin Trade Name Freq PRN Reason Stop Dose Admin Acetaminophen/Butalbital/Caffeine 1 tab 10/19/24 11:08 10/19/24 12:18 Butalb/Acetamin/Caff 50/325/40 Tablet PO 10/19/24 11:09 1 tab ONCE ONE Administration Albuterol Sulfate 5 mg/ 0 mg 10/19/24 08:39 10/19/24 08:42 Albuterol/Ipratropium 3 ml INHALE 10/19/24 08:40 1 each ONCE ONE Administration Albuterol Sulfate 2.5 mg/ 0 mg 10/19/24 11:10 10/19/24 11:14 Albuterol/Ipratropium 3 ml INHALE 10/19/24 11:11 1 dose ONCE ONE Administration Ketorolac Tromethamine 15 mg 10/19/24 08:45 10/19/24 10:29 Ketorolac Tromethamine 15 Mg/Ml Vial IVPUSH 10/19/24 08:46 15 mg ONCE ONE Administration Methylprednisolone Sodium Succinate 60 mg 10/19/24 08:28 10/19/24 10:28 Methylprednisolone Sod Succ 125 Mg/2 Ml Vial IVPUSH 10/19/24 08:29 60 mg ONCE ONE Administration Medical Decision Making Medical Decision Making [facility] Narrative: 48-year-old female with a past medical history of anxiety, vitamin-D deficiency, diabetes, diabetic neuropathy, HLD, HTN, asthma, presenting to the ED complaining of dry, SOB, chest tightness, headache, left ear pain x yesterday. on exam hypertensive, mildly tachypneic, NAD, talking in complete sentences, diffuse expiratory wheeze appreciated. No respiratory distress. TMs and oropharynx WNL. Mastoids WNL. Concern for viral illness vs asthma exacerbation vs pneumonia vs bronchitis. No evidence of acute otitis media / externa or mastoiditis. no evidence of DIRECTOR CHILD / retropharyngeal abscess Plan: Labs, viral testing, rapid strep, CXR, ED bronchodilator protocol, IV Solu-Medrol, re-evaluate Please refer to course for remaining clinical decision making, interpretation of labs/imaging results, and discussions with consultants and/or family members. Differential Diagnosis Differential Diagnoses: The differential diagnosis associated with the presentation includes As above Admission/Observation Consideration of admission/observation: Escalation of care including admission/observation considered Lab Data [facility] Lab Attestation statement: I reviewed the patient's lab results. 10/19/24 07:53 10/19/24 07:53 Labs: Lab Results 10/19/24 10/19/24 Range/Units 07:53 09:21 WBC 8.9 (4.8-10.8) X10*3/uL RBC 5.27 (4.20-5.50) X10*6/uL Hgb 14.8 (12.0-16.0) g/dl Hct 43.3 (37.0-47.0) % MCV 82.2 (80.0-98.0) fL MCH 28.1 (27.0-33.0) pg MCHC 34.2 (31.0-35.0) g/dl RDW 13.7 (11.0-16.0) % Plt Count 320 (160-400) X10*3/uL MPV 9.3 L (9.4-12.3) fL Immature Gran % (Auto) 0.2 (0.0-0.4) % Neut % (Auto) 50.2 (45-73) % Lymph % (Auto) 39.4 (20-40) % Pender % (Auto) 5.7 (2-11) % Eos % (Auto) 4.1 H (0-4) % Baso % (Auto) 0.4 (0-2) % Lymph # (Auto) 3.5 (1.2-4.9) X10*3/uL Pender # (Auto) 0.5 (0.1-1.2) X10*3/uL Eos # (Auto) 0.4 (0.0-0.4) X10*3/uL Baso # (Auto) 0.0 (0.0-0.2) X10*3/uL Abs Immat Gran (auto) 0.02 (0.00-0.03) X10*3/uL Absolute Neuts (auto) 4.5 (2.0-8.3) x10*3/uL Absolute Nucleated RBC 0.000 (0.0-0.012) X10*3/uL Nucleated RBC % (auto) 0.0 (0.0-0.2) /100WBC Sodium 139 (135-145) mmol/L Potassium 4.2 (3.3-5.1) mmol/L Chloride 105 (96-108) mmol/L Carbon Dioxide 26 (22-29) mmol/L Anion Gap 12 (12-20) BUN 8 L (9-16) mg/dL Creatinine 0.61 (0.5-1.4) mg/dL Estim Creat Clear Calc 130.7 Estimated GFR > 60 Random Glucose 158 H (60-115) mg/dL Calcium 9.4 (8.4-10.2) mg/dL Total Bilirubin 0.8 (0.0-1.0) mg/dL Direct Bilirubin 0.2 (0.0-0.5) mg/dL AST 27 (5-31) U/L ALT 32 H (0-31) U/L Alkaline Phosphatase 87 (39-117) U/L Troponin I High Sens < 2.7 (<3.5-17.0) ng/L Total Protein 7.2 (6.5-8.0) g/dL Albumin 3.9 (3.5-5.0) g/dL Lipase 30 (8-78) U/L Influenza Type A (PCR) NEGATIVE (Negative) Influenza Type B (PCR) NEGATIVE (Negative) RSV RNA Qual (PCR) NEGATIVE (Negative) SARS-CoV-2 RNA (RT-PCR) NEGATIVE (Negative) S. pyogenes GrpA AL Negative (Negative) Independent Interpretation I performed an independent interpretation of an: EKG and Plain X-Ray Radiology Impression Discussion of test interpretation with radiology: I have reviewed the radiologist's reading. External Record Review External record reviewed: Inpatient record, Office record, Outpatient record, Prior outpatient labs, Prior outpatient radiology, Primary care record and Outside ED record Tests considered The following testing was considered but not selected: As above Prescription Management I considered prescription management with: Pain Medication Chronic Conditions Patient?s care impacted by: Diabetes, Hypertension and Other Social Determinants Patient?s care significantly limited by Social Determinants of Health including: Other Social Determinant of Health Discharge Plan Discharge Clinical Impression: Asthma exacerbation Patient Disposition: Home, Self-Care Instructions: Asthma (DC) Additional Instructions: Your blood work, x-ray, and viral studies were reassuring Please continue to use your neb machine at home In addition take prednisone If her symptoms persist or worsen you have constant worsening chest pain, shortness of breath, fever return to the ED Please have close follow-up with her doctor Prescriptions: New prednisone 20 mg tablet 40 mg PO DAILY 5 Days Qty: 10 0RF albuterol sulfate 2.5 mg/0.5 mL solution for nebulization 5 mg inhalation Q4H PRN (Reason: shortness of breath or wheezing) Qty: 30 0RF No Action Xolair 150 mg recon soln 300 mg subcut Q2W 28 Days Qty: 4 12RF Rx Instructions: requires multiple injection sites; do not exceed 150 mg per injection site (DME) nebulizers [AeroEclipse II Nebulizer] [facility] [place] See Rx Instructions .ROUTE .MEDSUPPLY Qty: 1 0RF Rx Instructions: As directed (DME) nebulizers [Compact Compressor Nebulizer] [facility] [place] See Rx Instructions .ROUTE .MEDSUPPLY Qty: 1 0RF Rx Instructions: As directed amitriptyline 25 mg tablet 1 tab PO BEDTIME albuterol sulfate 90 mcg/actuation HFA aerosol inhaler 2 puff inhalation Q6H PRN (Reason: shortness of breath or wheezing) ergocalciferol (vitamin D2) 1,250 mcg (50,000 unit) capsule 1,250 mcg PO WE@0900 prednisone 20 mg Tablet 20 mg PO ONCE Rx Instructions: DUE TODAY 04/14/2024 nystatin 100,000 unit/mL Suspension 600,000 unit PO QID 10 Days Qty: 240 0RF omeprazole 40 mg Capsule,Delayed Release(Dr/Ec) 40 mg PO DAILY@0630 Qty: 90 0RF montelukast 10 mg tablet 10 mg PO BEDTIME Qty: 90 0RF rosuvastatin 40 mg tablet 40 mg PO BEDTIME 90 Days Qty: 90 2RF albuterol sulfate 2.5 mg /3 mL (0.083 %) solution for nebulization 2.5 mg inhalation BID PRN (Reason: Shortness Of Breath Or Wheezing) (DME) pen needle, diabetic [Comfort EZ Pen [place]] 32 gauge x 5/16 needle See Rx Instructions .Route Qty: 100 6RF Rx Instructions: As directed injects 4X/day (DME) blood-glucose meter [FreeStyle Lite Meter] Kit See Rx Instructions .ROUTE .MEDSUPPLY Qty: 1 0RF Rx Instructions: As directed (DME) lancets [FreeStyle Lancets] 28 gauge misc See Rx Instructions .ROUTE .MEDSUPPLY Qty: 200 1RF Rx Instructions: 5x/day Jardiance 25 mg tablet 25 mg PO DAILY Qty: 90 3RF insulin glargine [Lantus Solostar U-100 Insulin] 100 unit/mL (3 mL) insulin pen 10 unit subcut QPM Mounjaro 12.5 mg/0.5 mL pen injector 12.5 mg subcut QWEEK Qty: 2 5RF (DME) Dexcom G7 Sensor Device See Rx Instructions .Route Qty: 3 5RF Rx Instructions: As directed change every 10 days (DME) pen needle, diabetic [BD Ultra-Fine Mini Pen Needle] 31 gauge x 3/16 needle See Rx Instructions .Route Qty: 100 5RF Rx Instructions: use 4x a day As directed (DME) FreeStyle Lite Strips Strip See Rx Instructions .Route Qty: 100 2RF Rx Instructions: use daily As directed Referrals: Shandra Diaz MD [Primary Care Provider] - 2 days Interventions: ED Discharge Assessment Last Done: 10/19/24 12:26 Discharge Date/Time: 10/19/24 12:27 Print Language: Arabic
[2024-10-19] MEDS: Albuterol Sulfate 5 MG, Albuterol/Iprat 2.5/0.5MG 3 ML 3 ML INHALE (08:42)
[2024-10-19 08:43] VITALS: PULSE 72; RESP 22; O2SAT 91
--- NOTE | 2024-10-19 08:46 | ECG_ITS ---
Test Reason : CHEST PAIN Blood Pressure : / mmHG Vent. Rate : 088 BPM Atrial Rate : 088 BPM P-R Int : 140 ms QRS Dur : 100 ms QT Int : 374 ms P-R-T Axes : 056 024 041 degrees QTc Int : 452 ms Normal sinus rhythm Normal ECG When compared with ECG of 18-APR-2024 18:57, No significant change was found Referred By: Valeria Xie Electronically Signed By:Dony Be
[2024-10-19 09:26] LABS: Troponin-I High Sensitivity < 2.7 ng/L (<3.5-17.0)
[2024-10-19 09:48] LABS: Influenza A PCR NEGATIVE (Negative); Influenza B PCR NEGATIVE (Negative); Resp Syncy Virus RNA Qual PCR NEGATIVE (Negative); SARS COV2 PCR INHOUSE NEGATIVE (Negative)
[2024-10-19 09:49] LABS: IDNOW Serial# 08D9AD1C; Strep A Nucleic Acid Negative (Negative)
[2024-10-19 10:00] VITALS: PULSE 78; RESP 16; TEMP 36.8; O2SAT 97
[2024-10-19] MEDS: methylPREDNISolone Sod Succ 125 MG/2 ML VIAL 60 MG IVPUSH (10:28)
[2024-10-19] MEDS: Ketorolac Tromethamine 15 MG/ML VIAL IVPUSH (10:29)
[2024-10-19] MEDS: Albuterol Sulfate 2.5 MG, Albuterol/Iprat 2.5/0.5MG 3 ML 3 ML INHALE (11:14)
[2024-10-19 11:15] VITALS: PULSE 83; RESP 16; O2SAT 95
[2024-10-19] MEDS: Butalb/Acetamin/Caff 50/325/40 TABLET 1 TAB PO (12:18)
[2024-10-19 12:23] VITALS: PULSE 83; RESP 18; TEMP 36.8; O2SAT 98
[2024-10-19 12:26] VITALS: BP 0/0; PULSE 83; RESP 18; TEMP 36.7; O2SAT 98
== END 2024-10-19 12:27 | disposition home or self-care (01) ==
PROVIDERS: Physician Assistant; Emergency Provider Emergency Medicine; PCP Internal Medicine
DX: J45.901 Unspecified asthma with (acute) exacerbation (principal); E11.9 Type 2 diabetes mellitus without complications; I10 Essential (primary) hypertension; E78.5 Hyperlipidemia, unspecified; Z03.818 Encounter for observation for suspected exposure to other biological agents ruled out; Z79.4 Long term (current) use of insulin; Z79.899 Other long term (current) drug therapy; Z79.02 Long term (current) use of antithrombotics/antiplatelets
CPT/HCPCS: 0241U; 71046; 80048; 80076; 83690; 84484; 85025; 87651; 93005; 94640; 96374; 96375; 99285; J1885; J2919

== ENCOUNTER → 2024-10-19 08:46 | Outpatient (BNV) | payer OTHER, SELFPAY | PROVIDERS: Emergency Provider Emergency Medicine; PCP Internal Medicine; Visit Provider Internal Medicine Cardiovascular Disease | DX: R07.9 Chest pain, unspecified (principal) | CPT/HCPCS: 93010 ==

== ENCOUNTER 2024-10-22 07:12 | Outpatient (REF) | payer OTHER, SELFPAY ==
[2024-10-22 09:10] LABS: Estimated Average Glucose 166 mg/dL; Hemoglobin A1C 213.2287 umol/L; Hemoglobin A1c % 7.4 % (<6.0); Total Hemoglobin (HGBA1C) 3712.3976 umol/L
[2024-10-22 09:53] LABS: Alanine Aminotransferase 34 U/L (0-31); Albumin Level 3.9 g/dL (3.5-5.0); Alkaline Phosphatase 89 U/L (39-117); Anion Gap 13 (12-20); Aspartate Amino Transferase 19 U/L (5-31); Blood Urea Nitrogen 10 mg/dL (9-16); Calcium 9.3 mg/dL (8.4-10.2); Carbon Dioxide 25 mmol/L (22-29); Chloride 106 mmol/L (96-108); Cholesterol 242 mg/dL (<200); Estimated Glomerular Filt Rate > 60; Glucose Random 150 mg/dL (60-115); HDL Cholesterol 61 mg/dL (>40); LDL Cholesterol Calculated 154 mg/dL (<100); Potassium 3.6 mmol/L (3.3-5.1); Sodium 140 mmol/L (135-145); Triglycerides 137 mg/dL (<150)
[2024-10-22 09:56] LABS: Thyroid Stimulating Hormone 0.78 uIU/mL (0.32-4.0)
[2024-10-22 10:13] LABS: Creatinine Urine 148.88 mg/dL; Microalbum/Creatinine Ratio Ur 9.4 ug/mg cr (<30)
== END 2024-10-22 07:13 | disposition home or self-care (01) ==
LOC: HO.LAB 07:12
PROVIDERS: PCP Internal Medicine; Visit Provider Internal Medicine
DX: E11.65 Type 2 diabetes mellitus with hyperglycemia (principal); E78.00 Pure hypercholesterolemia, unspecified; I10 Essential (primary) hypertension; R19.7 Diarrhea, unspecified
CPT/HCPCS: 36415; 80053; 80061; 82043; 82570; 83036; 84443

== ENCOUNTER 2024-11-07 12:55 | Outpatient (REF) | payer OTHER, SELFPAY ==
--- NOTE | ~2024-11-07 | XR_ITS ---
EXAMINATION: XR CHEST CLINICAL INFORMATION: FEVER, COUGH, RULE OUT PNEUMONIA COMPARISON: 10/19/2024 TECHNIQUE: 2 views of the chest were obtained. FINDINGS: No significant abnormality is noted involving the heart, lungs, mediastinum, bony thorax or soft tissues. XR/XR chest 2V IMPRESSION: Unremarkable examination. Electronically signed by: Josef Alexandre MD 11/07/2024 04:44 PM [facility]
== END 2024-11-07 12:56 | disposition home or self-care (01) ==
LOC: HO.XRAY 12:55
PROVIDERS: PCP Internal Medicine; Visit Provider Internal Medicine
DX: R05.9 Cough, unspecified (principal); R50.9 Fever, unspecified
CPT/HCPCS: 71046

== ENCOUNTER 2024-11-28 11:12 | Outpatient (AMB) | payer OTHER, SELFPAY ==
--- NOTE | 2024-11-28 11:18 | MHC.OFFVIS ---
Intake Visit Reasons: Inj-left shoulder injection-last 09/18/23 Intake Note: Vonnie is a 49 year old right hand dominant female who presents today for a left shoulder injection, last injection was administered on 09/18/2023. Patient reports that the injection was helpful and remains helpful at this time. It has started to wear off, but she is still hesitant to move forward with repeat injection as it was painful last time it was administered and due to her history of DM. Allergies metronidazole [From Flagyl] Allergy (Severe, Verified 10/19/24 07:35) Anaphylaxis canagliflozin [Invokana] Allergy (Unknown, Verified 10/19/24 07:35) rash liraglutide Allergy (Unknown, Verified 10/19/24 07:35) rash animals Allergy (Unknown, Uncoded 10/17/24 08:45) rash Pt states no known food allerg Allergy (Unknown, Uncoded 10/17/24 08:45) Unknown HPI HPI Inj-left shoulder injection-last 09/18/23: Details: Vonnie is a 49 year old right hand dominant female who presents today for a left shoulder injection, last injection was administered on 09/18/2023. Patient reports that the injection was helpful and remains helpful at this time. It has started to wear off, but she is still hesitant to move forward with repeat injection as it was painful last time it was administered and due to her history of DM. [facility] Medical History Environmental allergies Anxiety Eosinophilia Obesity due to excess calories Vitamin D deficiency Diabetic 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 with type 2 diabetes mellitus intermediate (current) use of insulin Diabetes type 2, uncontrolled Ectopic Hyperlipidemia Hypertension Asthma Surgical History History of esophagogastroduodenoscopy (EGD) Hx of colonoscopy History of surgical procedure on mouth Hx of ectopic Family History Father Diabetes mellitus Stomach cancer Mother Diabetes mellitus Ovarian cancer Paternal Grandfather Colon cancer Paternal Aunt Liver cancer Paternal Aunt Liver cancer Social History Household Members: Family Housing: House Do you presently have visiting nurse or other home services: No Alcohol intake: never Patient Tobacco Use Status: Never used Tobacco Advance Directives Date on File: 07/15/22 service: No Current occupational status: employed Physical Exam Extrem Other: 35 degrees of external rotation versus 50 on the contralateral arm. Any degrees of abduction with only 120 of combined with some scapular recruitment. Assessment & Plan Assessment & Plan (1) Adhesive capsulitis of left shoulder: Code(s): M75.02 - Adhesive capsulitis of left shoulder Category: Medical Plan: This is a 49-year-old diabetic woman with a improving adhesive capsulitis of the left shoulder. Injection was helpful and she has improved she has minimal pain but she still feels that she can go back to the gym or engage in any lifting activities. I think physical therapy is reasonable at this time. Coding Level of Care Code Est Pt Level 3 (75175) Diagnoses Adhesive capsulitis of left shoulder M75.02
== END 2024-11-28 11:33 | disposition home or self-care (01) ==
PROVIDERS: PCP Internal Medicine; Visit Provider Orthopaedic Surgery
DX: M75.02 Adhesive capsulitis of left shoulder (principal)
CPT/HCPCS: 99213

== ENCOUNTER → 2024-11-28 11:12 | Outpatient (BNVA) | payer OTHER, SELFPAY | PROVIDERS: PCP Internal Medicine; Visit Provider Orthopaedic Surgery ==

== ENCOUNTER → 2024-12-23 08:15 | Outpatient (BNV) | payer OTHER, SELFPAY | PROVIDERS: PCP Internal Medicine; Visit Provider Internal Medicine | DX: Z12.31 Encounter for screening mammogram for malignant neoplasm of breast (principal) | CPT/HCPCS: 77063; 77067 ==

== ENCOUNTER 2024-12-23 08:20 | Outpatient (REF) | payer OTHER, SELFPAY | END 2024-12-23 08:21 | disposition home or self-care (01) | LOC: HO.MAMMO 08:20 | PROVIDERS: PCP Internal Medicine; Visit Provider Internal Medicine | DX: Z12.31 Encounter for screening mammogram for malignant neoplasm of breast (principal) ==

== ENCOUNTER 2024-12-25 13:56 | Emergency (ER) | payer OTHER, SELFPAY ==
--- NOTE | ~2024-12-25 | CT_ITS ---
CLINICAL HISTORY: epigastric, RUQ, R flank pain CT abdomen and pelvis with contrast Comparison: CT/REG/SR - CT ABDOMEN PELVIS WO IV CON - 04/18/24 19:50 EDT Findings: The lung bases are clear. 2 mm nonobstructive calculus within the right kidney. Remaining abdominal organs are unremarkable. No calcified gallstones. Moderate distention of the stomach with gas, fluid and ingested material. There may be a mild degree of ileus. No bowel inflammation. No small bowel dilatation. No pneumatosis or portal venous gas. There is an intrauterine device within the endometrial canal. Pelvic contents are unremarkable. Normal appendix. The bones are intact. IMPRESSION: 1. There may be a mild degree of ileus. 2. Moderate distention of the stomach. 3. There is an intrauterine device within the endometrial canal. 4. Tiny nonobstructive calculus within the right kidney. This document has been electronically signed by: Mindy Hebert MD on 12/25/2024 18:59:05
--- NOTE | ~2024-12-25 | XR_ITS ---
CLINICAL HISTORY: pain 4 view, chest and right ribs Comparison: CR/GA/SR - XR CHEST 2V - 11/07/24 13:13 EST Findings: No fractures or dislocations. The lungs are unremarkable. IMPRESSION: 1. No acute fractures. This document has been electronically signed by: Mindy Hebert MD on 12/25/2024 15:55:52
[2024-12-25 14:23] VITALS: BP 153/102; PULSE 101; RESP 18; TEMP 36.9; O2SAT 98; BMI 35.3
--- NOTE | 2024-12-25 14:24 | ED.HA ---
HPI - Headache General Chief Complaint: General Medical Stated Complaint: headache Time Seen by Provider: 12/25/24 16:48 Source: patient Mode of arrival: ambulatory Limitations: no limitations History of Present Illness ED Provider: Dr. Alessandra Olson HPI Narrative: Patient comes to the emergency room with multiple complaints. Patient states that she has right rib/flank pain intermittently for several days. Complaining of right-sided chest pain, complaining of headache. Patient states that she has been taking ibuprofen and Tylenol. No nausea vomiting or diarrhea, no fever chills, no hematuria or dysuria. Related Data Home Medications ?Medication ?Instructions ?Recorded ?Confirmed amitriptyline 25 mg tablet 1 tab PO BEDTIME 07/14/22 10/17/24 albuterol sulfate 2.5 mg/3 mL 2.5 mg inhalation BID PRN 08/08/22 10/17/24 (0.083 %) solution for nebulization Shortness Of Breath Or Wheezing albuterol sulfate 90 mcg/actuation 2 puff inhalation Q6H PRN 04/14/24 10/17/24 aerosol inhaler shortness of breath or wheezing ergocalciferol (vitamin D2) 1,250 1,250 mcg PO WE@0900 04/14/24 10/17/24 mcg (50,000 unit) capsule prednisone 20 mg tablet 20 mg PO ONCE 04/14/24 10/17/24 insulin glargine 100 unit/mL (3 10 unit subcut QPM 10/17/24 10/17/24 mL) subcutaneous pen (Lantus Solostar U-100 Insulin) Previous Rx's ?Medication ?Instructions ?Recorded nebulizers (AeroEclipse II #1 ea 12/22/20 Nebulizer) nebulizers (Compact Compressor #1 ea 12/31/20 Nebulizer) rosuvastatin 40 mg tablet 40 mg PO BEDTIME 90 days #90 tabs 03/13/21 omalizumab 150 mg subcutaneous 300 mg subcut Q2W 28 days #4 ea 08/12/22 solution (Xolair) pen needle, diabetic 32 gauge x #100 ea 03/12/2303/31 (Comfort EZ Pen [place]) montelukast 10 mg tablet 10 mg PO BEDTIME #90 tabs 04/19/24 nystatin 100,000 unit/mL oral 600,000 unit (6 mL) PO QID 10 days 04/19/24 suspension #240 mL omeprazole 40 mg capsule,delayed 40 mg PO DAILY@0630 #90 caps 04/19/24 release blood-glucose meter (FreeStyle #1 ea 06/10/24 Lite Meter kit) empagliflozin 25 mg tablet 25 mg PO DAILY #90 tabs 06/10/24 (Jardiance) lancets 28 gauge (FreeStyle #200 ea 06/10/24 Lancets) blood sugar diagnostic (FreeStyle #100 ea 08/05/24 Lite Strips) pen needle, diabetic 31 gauge x #100 ea 08/05/24 3/16 (BD Ultra-Fine Mini Pen Needle) blood-glucose sensor (SADAR 3Dcom G7 #3 ea 10/17/24 Sensor device) albuterol sulfate 2.5 mg/0.5 mL 5 mg inhalation Q4H PRN shortness 10/19/24 solution for nebulization of breath or wheezing #30 ea prednisone 20 mg tablet 40 mg (2 x 20 mg) PO DAILY 5 days 10/19/24 #10 tabs tirzepatide 12.5 mg/0.5 mL 12.5 mg (0.5 mL) subcut QWEEK #2 mL 12/21/24 subcutaneous pen injector (Mounjaro) ketorolac 10 mg tablet 10 mg PO Q8H PRN pain #10 tabs 12/25/24 Allergies Allergy/AdvReac Type Severity Reaction Status Date / Time metronidazole [From Flagyl] Allergy Severe Anaphylaxis Verified 12/25/24 14:31 canagliflozin [Invokana] Allergy Unknown rash Verified 12/25/24 14:31 liraglutide Allergy Unknown rash Verified 12/25/24 14:31 animals Allergy Unknown rash Uncoded 12/25/24 14:31 Pt states no known food Allergy Unknown Unknown Uncoded 12/25/24 14:31 allerg Review of Systems Review of Systems: Constitutional : No Weight loss, No Fever, No Chills, No Night Sweats, No Fatigue, No Malaise ENT/Mouth : No Hearing loss, No Ear Pain, No Nasal Congestion, No Sinus Pain, No Hoarseness, No sore throat, No Rhinorrhea, No Swallowing Difficulty Eyes: No Eye Pain, No Swelling, No Redness, No Foreign Body, No Discharge, No Vision Changes Cardiovascular : No Chest Pain, No SOB, No Dyspnea on Exertion, No Orthopnea, No Edema, No Palpitations Respiratory : No Cough, No Sputum, No Wheezing, No Smoke Exposure, No Dyspnea Gastrointestinal : No Nausea, No Vomiting, No Diarrhea, No Constipation, No abdominal Pain, No Hematochezia, No Melena Genitourinary : no irregular bleeding, No Dysuria, No Urinary Frequency, No Hematuria, No Urinary Incontinence, No Urgency, complaining of right flank pain Flank Pain, No Urinary Flow Changes, No Hesitancy Musculoskeletal : Complaining of right-sided rib pain No joint pain, No Myalgias, No Joint Swelling Skin : No Skin Lesions, No rash Neuro : No Weakness, No Numbness, No Paresthesias, No Loss of Consciousness, No Dizziness, complaining of Headache Psych : No Anxiety/Panic, No Depression, No SI/HI/AH/VH, No Social Issues, Heme/Lymph: No Bruising, No Bleeding,No Lymphadenopathy Endocrine : No Polyuria, No Polydipsia, No Temperature Intolerance PMFSH Past Medical History Medical History Environmental allergies Anxiety Eosinophilia Obesity due to excess calories Vitamin D deficiency Diabetic 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 with type 2 diabetes mellitus 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 Diabetes type 2, uncontrolled Ectopic Hyperlipidemia Hypertension Asthma Surgical History History of esophagogastroduodenoscopy (EGD) Hx of colonoscopy History of surgical procedure on mouth Hx of ectopic Family History Family History Father Diabetes mellitus Stomach cancer Mother Diabetes mellitus Ovarian cancer Paternal Grandfather Colon cancer Paternal Aunt Liver cancer Paternal Aunt Liver cancer Social History Social History Household Members: Family Housing: House Do you presently have visiting nurse or other home services: No Alcohol intake: never Patient Tobacco Use Status: Never used Tobacco Smoked in Last 30 Days: No Advance Directives: Yes Advance Directives on File: Yes Advance Directives Date on File: 07/15/22 Patient : No service: No Current occupational status: employed Physical Exam Vital Signs: Vital Signs: Last Vital Signs Temp 98.4 F 12/25/24 14:23 Pulse 101 H 12/25/24 14:23 Resp 18 12/25/24 14:23 BP 153/102 H 12/25/24 14:23 Pulse Ox 98 12/25/24 14:23 O2 Del Method Room Air 12/25/24 14:23 BMI result Body Mass Index 35.3 Const: Other: Appearance: Alert. Oriented X3. No acute distress. Well-appearing Eyes: Pupils equal, round and reactive to light. ENT: Pharynx normal. Neck: Normal inspection. Neck supple. No lymph nodes noted. No crepitus CVS: Normal heart rate and rhythm. Pulses normal. Normal S1 and S2. Reproducible chest pain to palpation over the sternum Respiratory: No respiratory distress. Breath sounds normal. No Wheezing. No rales Abdomen: Soft and nontender. No rigidity. No distention. Positive CVA tenderness Skin: Skin warm and dry. Normal skin color. Normal skin turgor. Extremities: No lower extremity edema. No Lacerations. No Rash Neuro: Oriented X 3. No motor deficit. No sensory deficit. Moving all extremities. No slurred speech. CN 2 through 12 grossly intact Psych: calm, cooperative, normal affect Course Course Course Narrative: This is an RME performed by Stiven Mock CNP: Additional HPI, ROS, PE not included below will be deferred to primary provider. Patient is a 49 year old female who presents emergency department for evaluation of diffuse headache with onset today with associated blurred vision, dizziness and lightheadedness, also experiencing mid anterior chest pain with onset today constant throughtout the AM. She additionally states 2-3 days right lateral chest/upper abdominal pain exacerbated by movement and inspiration, no recent URI symptoms or cough, no fall or injury. Reports she last took acetaminophen at 08:00, ibuprofen at 14:00, just prior to arrival took amitriptyline 25 mg as she thought that this may help to alleviate migraine headache. Additionally she states her blood sugars have been elevated today in the high 300s despite not eating much. Plan: EKG, serum labs, CXR, viral serologies Medications Administered Discontinued Medications Generic Name Dose Route Start Last Admin Trade Name Freq PRN Reason Stop Dose Admin Sodium Chloride 1,000 mls @ 999 mls/hr 12/25/24 17:06 12/25/24 18:23 Ns IVCONT 12/25/24 18:06 Infused .Q1H1M ONE Infusion Iohexol 85 ml 12/25/24 18:26 12/25/24 18:26 Iohexol 350 Mg/Ml 100 Ml Infus..Btl IV 12/25/24 18:27 85 ml ONCE ONE Administration Ketorolac Tromethamine 30 mg 12/25/24 17:06 12/25/24 17:31 Ketorolac Tromethamine 30 Mg/Ml Vial IVPUSH 12/25/24 17:07 30 mg ONCE ONE Administration Metoclopramide HCl 10 mg 12/25/24 17:06 12/25/24 17:32 Metoclopramide Hcl 10 Mg/2 Ml Vial IVPUSH 12/25/24 17:07 10 mg ONCE ONE Administration Medical Decision Making Medical Decision Making [facility] Narrative: My interpretation of labs: No significant abnormality patient's hematology or chemistry, troponin negative, BNP negative, lipase normal, urine negative for UTI, serology negative for influenza RSV or COVID CT scan shows 2 mm nonobstructive kidney stones. At this time, no ureterolithiasis. It may be possible that patient may have passed kidney stones and therefore now is experiencing renal colleagues. pt recieved iv fluids, ketorolac, reglan Patient states that she feels much better and has no pain at all Differential Diagnosis Differential Diagnoses: The differential diagnosis associated with the presentation includes (Kidney stones, pyelonephritis, costochondritis, acute cholecystitis, viral syndrome, musculoskeletal pain) Admission/Observation Consideration of admission/observation: Escalation of care including admission/observation considered (Given patient's symptoms and presentation, observation was considered) Lab Data [facility] Lab Attestation statement: I reviewed the patient's lab results. 12/25/24 14:54 12/25/24 14:54 Labs: Lab Results 12/25/24 12/25/24 Range/Units 14:54 15:06 WBC 9.3 (4.8-10.8) X10*3/uL RBC 5.63 H (4.20-5.50) X10*6/uL Hgb 15.5 (12.0-16.0) g/dl Hct 45.7 (37.0-47.0) % MCV 81.2 (80.0-98.0) fL MCH 27.5 (27.0-33.0) pg MCHC 33.9 (31.0-35.0) g/dl RDW 12.7 (11.0-16.0) % Plt Count 262 (160-400) X10*3/uL MPV 9.8 (9.4-12.3) fL Immature Gran % (Auto) 0.2 (0.0-0.4) % Neut % (Auto) 71.0 (45-73) % Lymph % (Auto) 22.1 (20-40) % [place] % (Auto) 4.8 (2-11) % Eos % (Auto) 1.4 (0-4) % Baso % (Auto) 0.5 (0-2) % Lymph # (Auto) 2.1 (1.2-4.9) X10*3/uL [place] # (Auto) 0.4 (0.1-1.2) X10*3/uL Eos # (Auto) 0.1 (0.0-0.4) X10*3/uL Baso # (Auto) 0.1 (0.0-0.2) X10*3/uL Abs Immat Gran (auto) 0.02 (0.00-0.03) X10*3/uL Absolute Neuts (auto) 6.6 (2.0-8.3) x10*3/uL Absolute Nucleated RBC 0.000 (0.0-0.012) X10*3/uL Nucleated RBC % (auto) 0.0 (0.0-0.2) /100WBC PT 11.2 (10.9-12.4) SEC INR 1.0 (0.9-1.1) Hold Blue Top SEE NOTE VBG pH 7.43 (7.32-7.43) VBG pCO2 41 mmHg VBG pO2 88 mmHg VBG HCO3 28 H (22-26) mmol/L VBG O2 Saturation 98.0 % VBG Base Excess 3.6 mmol/L Sodium 137 (135-145) mmol/L Potassium 3.3 (3.3-5.1) mmol/L Chloride 101 (96-108) mmol/L Carbon Dioxide 25 (22-29) mmol/L Anion Gap 14 (12-20) BUN 6 L (9-16) mg/dL Creatinine 0.64 (0.5-1.4) mg/dL Estim Creat Clear Calc 127.8 Estimated GFR > 60 Random Glucose 258 H (60-115) mg/dL Calcium 9.4 (8.4-10.2) mg/dL Magnesium 1.9 (1.6-2.6) mg/dL Total Bilirubin 1.5 H (0.0-1.0) mg/dL AST 26 (5-31) U/L ALT 45 H (0-31) U/L Alkaline Phosphatase 108 (39-117) U/L Troponin I High Sens < 2.7 (<3.5-17.0) ng/L B-Natriuretic Peptide 27 (<100) pg/mL Total Protein 7.8 (6.5-8.0) g/dL Albumin 4.2 (3.5-5.0) g/dL Lipase 19 (8-78) U/L Beta-Hydroxybutyrate 0.19 (0.02-0.27) mmol/L Urine Color Yellow Urine Appearance Clear Urine pH 7.5 (5.0-9.0) Ur Specific [place] 1.020 (1.005-1.025) Urine Protein Negative (Neg-Trace) mg/dL Urine Glucose (UA) 500 H (Negative) mg/dL Urine Ketones Negative (Negative) mg/dL Urine Blood Negative (Negative) Urine Nitrite Negative (Negative) Ur Leukocyte Esterase Negative (Negative) Influenza Type A (PCR) NEGATIVE (Negative) Influenza Type B (PCR) NEGATIVE (Negative) RSV RNA Qual (PCR) NEGATIVE (Negative) SARS-CoV-2 RNA (RT-PCR) NEGATIVE (Negative) Independent Interpretation I performed an independent interpretation of an: CT Scan Radiology Impression Discussion of test interpretation with radiology: I have reviewed the radiologist's reading. Radiologist Impression: 2 mm nonobstructive calculus within the right kidney. Remaining abdominal organs are unremarkable. No calcified gallstones. Moderate distention of the stomach with gas, fluid and ingested material. There may be a mild degree of ileus. No bowel inflammation. No small bowel dilatation. No pneumatosis or portal venous gas. There is an intrauterine device within the endometrial canal. Pelvic contents are unremarkable. Normal appendix. The bones are intact. IMPRESSION: 1. There may be a mild degree of ileus. 2. Moderate distention of the stomach. 3. There is an intrauterine device within the endometrial canal. 4. Tiny nonobstructive calculus within the right kidney. Discharge Plan Discharge Clinical Impression: Renal colic, Headache, Costochondritis Patient Disposition: Home, Self-Care Instructions: Renal Colic (ED), Costochondritis (ED), Acute Headache (ED) Additional Instructions: Please follow-up with your primary care physician tomorrow. If you have any worsening or new symptoms, please return to the emergency room or call 911 Prescriptions: New ketorolac 10 mg tablet 10 mg PO Q8H PRN (Reason: pain) Qty: 10 0RF Rx Instructions: Do not use this medication with other NSAIDs No Action Xolair 150 mg recon soln 300 mg subcut Q2W 28 Days Qty: 4 12RF Rx Instructions: requires multiple injection sites; do not exceed 150 mg per injection site Mounjaro 12.5 mg/0.5 mL pen injector 12.5 mg subcut QWEEK Qty: 2 5RF (DME) nebulizers [[place]eroE[place] Nebul[place] [facility] [place] .ROUTE .MEDSUPPLY Qty: 1 0RF Rx Instructions: As directed (DME) nebulizers [Compact Compressor Nebulizer[place] [facility] [place] Instructions .ROUTE .MEDSUPPLY Qty: 1 0RF Rx Instructions: As directed amitriptyline 25 mg tablet 1 tab PO BEDTIME albuterol sulfate 90 mcg/actuation HFA aerosol inhaler 2 puff inhalation Q6H PRN (Reason: shortness of breath or wheezing) ergocalciferol (vitamin D2) 1,250 mcg (50,000 unit) capsule 1,250 mcg PO WE@0900 prednisone 20 mg Tablet 20 mg PO ONCE Rx Instructions: DUE TODAY 04/14/2024 nystatin 100,000 unit/mL Suspension 600,000 unit PO QID 10 Days Qty: 240 0RF omeprazole 40 mg Capsule,Delayed Release(Dr/Ec) 40 mg PO DAILY@0630 Qty: 90 0RF montelukast 10 mg tablet 10 mg PO BEDTIME Qty: 90 0RF prednisone 20 mg tablet 40 mg PO DAILY 5 Days Qty: 10 0RF albuterol sulfate 2.5 mg/0.5 mL solution for nebulization 5 mg inhalation Q4H PRN (Reason: shortness of breath or wheezing) Qty: 30 0RF rosuvastatin 40 mg tablet 40 mg PO BEDTIME 90 Days Qty: 90 2RF albuterol sulfate 2.5 mg /3 mL (0.083 %) solution for nebulization 2.5 mg inhalation BID PRN (Reason: Shortness Of Breath Or Wheezing) (DME) pen needle, diabetic [Comfort EZ Pen [place]] 32 gauge x 5/16 needle See Rx Instructions .Route Qty: 100 6RF Rx Instructions: As directed injects 4X/day (DME) blood-glucose meter [FreeStyle Lite Meter] Kit See Rx Instructions .ROUTE .MEDSUPPLY Qty: 1 0RF Rx Instructions: As directed (DME) lancets [FreeStyle Lancets] 28 gauge misc See Rx Instructions .ROUTE .MEDSUPPLY Qty: 200 1RF Rx Instructions: 5x/day Jardiance 25 mg tablet 25 mg PO DAILY Qty: 90 3RF insulin glargine [Lantus Solostar U-100 Insulin] 100 unit/mL (3 mL) insulin pen 10 unit subcut QPM (DME) Dexcom G7 Sensor Device See Rx Instructions .Route Qty: 3 5RF Rx Instructions: As directed change every 10 days (DME) pen needle, diabetic [BD Ultra-Fine Mini Pen Needle] 31 gauge x 3/16 needle See Rx Instructions .Route Qty: 100 5RF Rx Instructions: use 4x a day As directed (DME) FreeStyle Lite Strips Strip See Rx Instructions .Route Qty: 100 2RF Rx Instructions: use daily As directed Print Language: Estonian
--- NOTE | 2024-12-25 14:31 | ECG_ITS ---
Test Reason : CP Blood Pressure : */* mmHG Vent. Rate : 98 BPM Atrial Rate : 98 BPM P-R Int : 134 ms QRS Dur : 100 ms QT Int : 364 ms P-R-T Axes : 36 7 9 degrees QTcB Int : 464 ms Normal sinus rhythm Normal ECG When compared with ECG of 19-Oct-2024 09:12, Nonspecific T wave abnormality now evident in Inferior leads Referred By: Selina Mock Electronically Signed By: ANTOLIN SANCHEZ MD
--- OUTSIDE RECORDS SUMMARY | 2024-12-25 14:54 | XMS_ITS ---
Author Organization [facility] Address [address] [place] [address] Care Team Providers Care Executive Office Manager Name Role Phone LEONARDO AMARAL, [facility] Primary Care Provider Opal Monroe Unavailable [phone] Allergies Allergen (clinical drug ingredient) Drug/Non Drug Allergy documented on EMR Reaction Allergy Type Onset Date Status metformin Metformin HCl Diarrhea Drug Allergy Act cisco liraglutide Victoza Skin Rash Drug Allergy Activ e Lysteda Eye Redness Drug Allergy Activ e Results Component Value Reference Range Notes [id number] IGP No Culture 30 Plus Reviewed date:06/28/2024 06:57:35 PM Interpretation: Performing Lab:[facility], [address], [address], [place], Phone - [phone], Director - [facility] Notes/Report: Clinical Information:[id number] LMP / Prev Treat...NSP=[id number] Dates / Results....03/19/23 NIL NEGHPV No. of containers..01 ThinPrep Vial DIAGNOSIS: NEGATIVE FOR IN TRAEPITHELIAL LESION OR MALIGNANCY. Specimen adequacy: Satisfactory for evaluation. Endocervical and/or squamous metaplastic cells (endocervical component) are present. Clinician provided ICD10: Z1 2.31 Performed by: Jose Kuhn , Pipeline Welder (ASCP) . . Note: The Pap smear is a screening test designed to aid in the detection of premalignant and malignant conditions of the uterine cervix. It is not a diagnostic procedure and should not be used as the sole means of detecting cervical cancer. Both false-positive and false-negative reports do occur. . Test Methodology: This liquid based ThinPrep(R) pap test was screened with the use of an image guided system. HPV Aptima Negative Negative This nucleic acid amplification test detects fourteen high-risk HPV types (16,18,31,33,35,39,45,51,52,56,58 ,59,66,68) without differentiation. HPV Genotype Reflex Criteria not met, HPV Genotype not performed. PDF Report Reviewed date:06/28/2024 06:57:46 PM Interpretation: Performing Lab:[facility], [address], [address], [place], Phone - [phone], Director - [facility] Notes/Report: Clinical Information:[id number] LMP / Prev Treat...[id number]=[id number] Dates / Results....03/19/23 NIL NEGHPV No. of containers..01 ThinPrep Vial REASON FOR VISIT Annual POLYGRAPH EXAMINER Physical, Annual POLYGRAPH EXAMINER Physical 50-59* Medications Medication SIG (Take, Route, Frequency, Duration) Notes Start Date End Date Status amLODIPine Besylate 10 MG TAKE 1 TABLET BY MOUTH EVERY DAY Oral for 90 Active Lantus 100 UNIT/ML as directed Subcutaneous Pt is on pump Active metFORMIN HCl ER 500 MG 1 tablet with evening meal Orally Once a day Active Rosuvastatin Calcium 40 MG TAKE 1 TABLET BY MOUTH EVERYDAY AT BEDTIME Oral for 90 Active CeleXA 20 MG 1 tablet Orally Once a day Active Vitamin C Active Januvia 100 MG TAKE 1 TABLET BY IVELISSE TH EVERY DAY Oral for 30 Active Telmisartan-HCTZ 80-25 MG TAKE 1 TABLET BY MOUTH EVERY DAY Oral for 90 Active Vitamin D 1000 UNIT 1 tablet Orally Once a day Active Social History Tobacco Use: Social History Observation Description Date Details (start date - stop date) Never Smoker NA - NA Tobacco Use/Smoking Question Answer Notes Are you a nonsmoker Alcohol Screen (Audit-C) Question Answer Notes Did you have a drink contain ing alcohol in the past year? Yes How often did you have a dri nk containing alcohol in the past year? 2 to 4 times a month (2 points) How many drinks did you have on a typical day when you were drinking in the past year? 1 or 2 drinks (0 point) Points 2 Interpretation Negative Sexual History Question Answer Notes Had sex in the past 12 months (vaginal, oral, or anal)? Yes with Men only Prevention strategies discussed: Other Have you ever had a Sexually transmitted disease ? Yes Chlamydia? Yes Vital Signs Temperature 98.0 degrees Fahrenheit 06/23/20 24 Blood pressure systolic 122 mm Hg 06/23/20 24 Blood pressure diastolic 82 mm Hg 024 Height 66.25 in 06/23/2024 Weight 226 lbs 06/23/2024 BMI 36.2 kg/m2 06/23/2024 Encounters Encounter Location Date Provider Diagnosis [address] [place] [address] 06/23/2024 Opal Aguirre Encounter for gynecological examination (general) (routine) without abnormal findings Z01.419 ; Encounter for screening mammogram for malignant neoplasm of breast Z12.31 ; Encounter for routine checking of intrauterine contraceptive device Z30.431 and Personal history of cervical dysplasia Z87.410 Assessments Encounter Date Diagnosis (ICD Code) Assessment Notes Treatment Notes Treatment Clinical Notes Section Notes 06/23/2024 Encounter for gynecological examination (general) (routine) without abnormal findings (ICD-10 - Z01.419) PAP TEST WITH HPV TYPING WAS OBTAINED. 06/23/2024 Encounter for screening mammogram for malignant neoplasm of breast (ICD-10 - Z12.31) REGULAR MAMMOGRAMS AND SBE'S WERE RECOMMENDED. 06/23/2024 Encounter for routine checking of intrauterine contraceptive device (ICD-10 - Z30.431) PAT WAS REASSURED THAT IUD IS IN PLACE. 06/23/2024 Personal history of cervical dysplasia (ICD-10 - Z87.410) DISCUSSED PREVIOUS LEEP FOR FARAZ AND SUBSEQUENTLY NEGATIVE PAP TESTS. REPEAT PAP TEST WITH HPV TYPING WAS OBTAINED TODAY. Plan Of Treatment Treatment Notes Assessment Notes Encounter for gynecological examination (general) (routine) without abnormal findings PAP TEST WITH HPV TYPING WAS OBTAINED. Encounter for screening mamm ogram for malignant neoplasm of breast REGULAR MAMMOGRAMS AND SBE'S WERE RECOMMENDED. Encounter for routine checki ng of intrauterine contraceptive device PAT WAS REASSURED THAT IUD IS IN PLACE. Personal history of cervical dysplasia DISCUSSED PREVIOUS LEEP FOR FARAZ AND SUBSEQUENTLY NEGATIVE PAP TESTS. REPEAT PAP TEST WITH HPV TYPING WAS OBTAINED TODAY. Pending Test Test Name Order Date MM Digital Mammo Screening 06/23/2024 Next Appt Details Follow Up: 1 Year, Reason: Provider Name:Opal story, 06/27/2025 09:40:00 AM, [address], [address], [place], [address], Progress Notes * PATRICK DILLONSDOB: [birth year] (48 yo F)Acc No.[id number]:06/23/2024 PROGRESS NOTES Patient:?YESSENIA DILLON Appointment Provider:?Opal story M.D. :1975???Age:48 Y???Sex:Female D ate:06/23/2024 Address:[address] [place] [address], , [place] [id number] Pcp:JOSEF PATTERSON MD Subjective: * Chief Complaints: * ??? Annual POLYGRAPH EXAMINER PhysicalAnnua l POLYGRAPH EXAMINER Physical 50-59* * HPI: ???New/Follow-up Patient Consult:? MIRENA IUD WAS INSERTED IN JUN 2021 TO CONTROL MENOMETRORRHAGIA AFTER NEGATIVE HSONO AND EMB.? SHE HAS DONE WELL AND HAS ONLY OCCASIONAL BLEEDING. S/P LEEP IN 2020 FOR FARAZ 2.? SUBSEQUENT PAP TESTS HAVE BEEN NEGATIVE.? HER LAST ONE IN 2022 WAS NEGATIVE AND HPV NEGATIVE. SHE IS KNOWN TO HAVE TYPE 2 DIABETES.? SHE HAS A HX OF ASTHMA.? SHE HAD PNEUMONIA IN APRIL 2024 AND WAS HOSPITALIZED FOR A FEW DAYS.? SHE HAS RECOVERED FULLY. HER LAST MAMMOGRAM WAS DONE AT [facility] IN FEBRUARY 2024.? WE DO NOT HAVE THE RESULTS.? HER 2020 MAMMOGRAM SHOWED BREASTS ARE NOT DENSE AND WAS NORMAL. SHE HAS NOT HAD A COLONOSCOPY DONE YET. J&J X 1. ???Annual:? Patient presents for annual exam, ages 50-59. ?General Health Maintenance:?Current breast complaints:?no breast pain, mass, discharge, or skin changes ?Urinary problems:?patient reports no urinary health problems or bowel health problems ?Calcium intake:?takes adequate calcium via diet and supplementation ?Significant POLYGRAPH EXAMINER problems:?no significant ob gyn physician assistant symptoms or problems * ROS:?general:?no?chest pain.?no?palpitations.?no?headache.?no?cough.?no?shortness of breath.?no?fever.?no?unexplained weight loss.?no?nausea/vomiting.?no?change in bowel movements.?no blood in stool.?no?genitourinary complaints.?no?skin complaints.? * Medical History:? * House Visitor History:?/ Para?2/2.?Sexual activity?Not currently sexually active x1yr.?Last Pap Smear:?03/19/23 NIL, NEG HPV, 04/12/21 ASC-H, POS HRHPV, 12/01/17 NEG HRHPV, 02/04/13, neg.?Mammogram:?2022, 02/15/21 < 50% density, 01/2020, 11/17/18 < 50% density, Bilateral Mammo with f/u Lt Breast. repeat in 3-6 months [facility]. ordered by PCP.?Abnormal Pap Smear:?yes, 05/23/21 LEEP FARAZ I, 04/24/21 [place] FARAZ II, positive HRHPV in 2006.?LMP and menses?09/24/21, Spotting with Aygestin and Lysteda, 06/10/21.?History of STD's:?Chlamydia.? Control:?Mirena intrauterine device for cycle control..?*Hep B Vac?completed.? * OB History:?Total pregnancies?2.?Total living children?2.?NVD?2.? * Surgical History:?Ectopic 20 * Hospitalization/Major Diagno stic Procedure:?See Siurgical Hx 2 Vaginal Deliveries [facility] * Family History:?Mother: stacey albert, diabetes.?Father: alive, diabetes, liver problems.?Paternal Grand Father: colon cancer.?Maternal uncle: mouth cancer.?Maternal aunt: breast cancer.? * Social History:?Tobacco Use:?Tobacco Use/Smoking?Are you a?nonsmoker ???Sexual History:?Sexual History?Had sex in the past 12 months (vaginal, oral, or anal)??Yes ?with?Men only ?Prevention strategies discussed:?Other ?Have you ever had a Sexually transmitted disease??Yes ?Chlamydia??Yes ?Details of Sexual History?Are you sexually active??Yes ???Drugs/Alcohol:?Drugs?Have you used drugs other than those for medical reasons in the past 12 months??No ?Alcohol Screen (Audit-C)?Did you have a drink containing alcohol in the past year??Yes ?How often did you have a drink containing alcohol in the past year??2 to 4 times a month (2 points) ?How many drinks did you have on a typical day when you were drinking in the past year??1 or 2 drinks (0 point) ?Points?2 ?Interpretation?Negative ???Miscellaneous:?Children: yes, 2. ?Exercise: yes, walking. ?Home smoke detector use: yes. ?Living with: spouse. ?Marital status: . ?Natural support system: yes. 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 ?Sexually active: no. * Medications:?TakingVitamin D 1000 UNIT Tablet 1 tablet Orally Once a day Vitamin C Januvia 100 MG Tablet TAKE 1 TABLET BY MOUTH EVERY DAY Oral Telmisartan-HCTZ 80- 25 MG Tablet TAKE 1 TABLET BY MOUTH EVERY DAY Oral Rosuvastatin Calcium 40 MG Tablet TAKE 1 TABLET BY MOUTH EVERYDAY AT BEDTIME Oral amLODIPine Besylate 10 MG Tablet TAKE 1 TABLET BY MOUTH EVERY DAY Oral Lantus 100 UNIT/ML Solution as directed Subcutaneous , Notes to Pharmacist: Pt is on pumpmetFORMIN HCl ER 500 MG Tablet Extended Release 24 Hour 1 tablet with evening meal Orally Once a day CeleXA 20 MG Tablet 1 tablet Orally Once a day Medication List reviewed and reconciled with the patientTaking Vitamin D 1000 UNIT Tablet 1 tablet Orally Once a day Taking Vitamin C Taking Januvia 100 MG Tablet TAKE 1 TABLET BY MOUTH EVERY DAY Oral Taking Telmisartan-HCTZ 80-25 MG Tablet TAKE 1 TABLET BY MOUTH EVERY DAY Oral Taking Rosuvastatin Calcium 40 MG Tablet TAKE 1 TABLET BY MOUTH EVERYDAY AT BEDTIME Oral Taking amLODIPine Besylate 10 MG Tablet TAKE 1 TABLET BY MOUTH EVERY DAY Oral Taking Lantus 100 UNIT/ML Solution as directed Subcutaneous , Notes to Pharmacist: Pt is on pumpTaking metFORMIN HCl ER 500 MG Tablet Extended Release 24 Hour 1 tablet with evening meal Orally Once a day Taking CeleXA 20 MG Tablet 1 tablet Orally Once a day Medication List reviewed and reconciled with the patient * Allergies:?Metformin HCl: Di arrhea - AllergyVictoza: Skin Rash - AllergyLysteda: Eye Redness - Allergyno[Allergies Verified] Objective: * Vitals:?Ht: 66.25 in, Wt:226 lbs, BMI:36.2Index, BP:122/82mm Hg, Temp:98.0F. * Examination: ???General Exam: ?CONSTITUTIONAL:?NECK/THYROID:?RESPIRATORY:?Auscultation: clear to auscultation bilaterally, Respiratory Effort: normal.?CARDIOVASCULAR:?Auscultation: regular rate and rhythm.?BREAST, Right:?BREAST, Left:?GASTROINTESTINAL:?MUSCULOSKELETAL:?SKIN:?NEURO/PSYCH:?Genitourinary: ?EXTERNAL GENITALIA:?VAGINA:?BLADDER:?URETHRA:?CERVIX:?UTERUS:?ADNEXA:?ANUS AND PERINEUM:? Assessment: * Assessment: 1.?Encounter for gynecologic al examination (general) (routine) without abnormal findings - Z01.419???2.?Encounter for screening mammogram for malignant neoplasm of breast - Z12.31???3.?Encounter for routine checking of intrauterine contraceptive device - Z30.431???4.?Personal history of cervical dysplasia - Z87.410??? Plan: * Treatment: 2.?Encounter for screening m ammogram for malignant neoplasm of breast?LAB: [id number] IGP No Culture 30 Plus ?Imaging: MM Digital Mammo Screening Notes: REGULAR MAMMOGRAMS AND SBE'S WERE RECOMMENDED.??3.?Encounter for routine checking of intrauterine contraceptive device? Notes: PAT WAS REASSURED THAT IUD IS IN PLACE.??4.?Personal history of cervical dysplasia? Notes: DISCUSSED PREVIOUS LEEP FOR FARAZ AND SUBSEQUENTLY NEGATIVE PAP TESTS. REPEAT PAP TEST WITH HPV TYPING WAS OBTAINED TODAY.?? * Procedure Codes:? * Preventive Medicine:? ??YOUR PREVENTIVE WELLNESS PLAN:?Osteoporosis prevention?Calcium, D, strength training.?Breast Cancer Screening (Mammogram):?annually.?Cervical Cancer Screening (Pap Smear):?q 3 years with HPV screen.?Colorectal Cancer Screening:?q 10 years.? * Follow Up:?1 Year * Images: Billing Information: * Visit Code:? 64740 Preventive Care New Pt. Age 40-64. 52639 Preventive Care Est Pt. Age 40-64. * Procedure Codes:? * Sign off status: Completed true * Appointment Provider:?Opal Aguirre M.D. Date:?06/23/2024 Generated for Jaime sinha/Christina/Mirian on:?12/25/2024 02:54 PM EST History and Physical Notes * HPI (History of Present Illness) Category Sub-Category Detail Notes Category Not es New/Follow-up Patient Consult MIRENA IUD WAS INSERTED IN JUN 2021 TO CONTROL MENOMETRORRHAGIA AFTER NEGATIVE HSONO AND EMB. SHE HAS DONE WELL AND HAS ONLY OCCASIONAL BLEEDING. S/P LEEP IN 2020 FOR FARAZ 2. SUBSEQUENT PAP TESTS HAVE BEEN NEGATIVE. HER LAST ONE IN 2022 WAS NEGATIVE AND HPV NEGATIVE. SHE IS KNOWN TO HAVE TYPE 2 DIABETES. SHE HAS A HX OF ASTHMA. SHE HAD PNEUMONIA IN APRIL 2024 AND WAS HOSPITALIZED FOR A FEW DAYS. SHE HAS RECOVERED FULLY. HER LAST MAMMOGRAM WAS DONE AT [facility] IN FEBRUARY 2024. WE DO NOT HAVE THE RESULTS. HER 2020 MAMMOGRAM SHOWED BREASTS ARE NOT DENSE AND WAS NORMAL. SHE HAS NOT HAD A COLONOSCOPY DONE YET. J&J X 1. Annual General Health Maintenance: Current breast complaints:: no breast pain, mass, discharge, or skin changes Urinary problems:: patient r eports no urinary health problems or bowel health problems Calcium intake:: takes adequ ate calcium via diet and supplementation Significant POLYGRAPH EXAMINER problems:: n o significant ob gyn physician assistant symptoms or problems Examination Category Sub-Category Detail Notes Category Not es General Exam CONSTITUTIONAL: General Appearan ce:: alert, in no acute distress, normal, well nourished NECK/THYROID: Thyroid:: normal size and shape Inspection/Palpation:: normal RESPIRATORY: Auscultation: clear to auscultation bilaterally, Respiratory Effort: normal CARDIOVASCULAR: Auscultation: regula r rate and rhythm GASTROINTESTINAL: Hernias:: no hernias present, no inguinal adenopathy Liver and Spleen:: normal Abdomen:: no masses, nontender, nondiste nded MUSCULOSKELETAL: Inspection/Palpation:: no clubb ing, cyanosis, or edema SKIN: Skin:: normal NEURO/PSYCH: Mood/Affect:: normal Orientation:: time , place, person BREAST, Right: Inspection/Palpation :: no discharge, no masses present, no nipple retraction, no skin changes, no skin dimpling, no tenderness, no lymphadenopathy, no axillary mass, no axillary tenderness BREAST, Left: Inspection/Palpation :: no discharge, no masses present, no nipple retraction, no skin changes, no skin dimpling, no tenderness, no lymphadenopathy, no axillary mass, no axillary tenderness Genitourinary EXTERNAL GENITALIA: External Genitalia:: nor mal, no lesions VAGINA: Vagina:: normal appe arance, no abnormal discharge, no lesions BLADDER: Bladder:: no mass, nontender URETHRA: Urethra:: no erythema or lesions present CERVIX: Cervix:: no lesions, nontender I UD STRINGS ARE IN PLACE UTERUS: Uterus:: nontender, normal contour, normal mobility, normal size ADNEXA: Adnexa:: no masses, no tendernes s ANUS AND PERINEUM: Anus/Perineum:: visually norm al
--- OUTSIDE RECORDS SUMMARY | 2024-12-25 14:55 | XMS_ITS ---
Author Organization [facility] Address [address] [place] [address] Care Team Providers Care Senior User Experience Architect Name Role Phone SID REYES Unavailable [phone] REASON FOR VISIT appt/ cx Encounters Encounter Location Date Provider Diagnosis [address] [address] 04/07/2024 SID REYES PLAN OF TREATMENT No Information Progress Notes * Verito SORTOsDOB: 3 (48 yo F)Acc No.[id number]:04/07/2024 Patient:??Vonnie SORTO :1975?Age:48 Y?Sex:Fe male Address:[address] [place] [address] * true * Date:??
--- OUTSIDE RECORDS SUMMARY | 2024-12-25 14:55 | XMS_ITS ---
Author Organization [facility] Address [address] [place] [address] [address] [place] [address] Care Team Providers Care Needle Control Cheniller Name Role Phone LEONARDO AMARAL, JOSEF Primary Care Provider Opal Monroe Unavailable [phone] Allergies Allergen (clinical drug ingredient) Drug/Non Drug Allergy documented on EMR Reaction Allergy Type Onset Date Status metformin Metformin HCl Diarrhea Drug Allergy Act cisco liraglutide Victoza Skin Rash Drug Allergy Activ e Lysteda Eye Redness Drug Allergy Activ e REASON FOR VISIT Annual (YELLOW FORM DONE) Encounters Encounter Location Date Provider Diagnosis [facility] [address] [place] [address] 03/22/2024 Opal Aguirre Plan Of Treatment Next Appt Details Provider Name:Opal story, 06/27/2025 09:40:00 AM, [address] [place] [address], [address], [place], [address], Progress Notes * PATRICK DILLONSDOB: [birth year] (49 yo F)Acc No.[id number]:03/22/2024 PROGRESS NOTES Patient:?YESSENIA DILLON Appointment Provider:?Opal story M.D. :1975???Age:48 Y???Sex:Female D ate:03/22/2024 Address:[address] [place] [address], [id number] Pcp:JOSEF PATTERSON MD Subjective: * Chief Complaints: * ???1. Annual (YELLOW FORM DO NE). * Medical History:?Other asthm a, Type 2 diabetes mellitus without complications, Essential (primary) hypertension, Morbid (severe) obesity due to excess calories, Pelvic Pain, Acute inflammatory disease of uterus, Epidermal cyst, Amenorrhea, unspecified, Vitamin D deficiency, unspecified, Oligomenorrhea, unspecified, Morbid (severe) obesity due to excess calories, Other microscopic hematuria, Moderate cervical dysplasia, Functional urinary incontinence, Cervical high risk human papillomavirus (HPV) DNA test positive, Other specified abnormal uterine and vaginal bleeding, Amenorrhea, unspecified, Acute inflammatory disease of uterus, Atypical squamous cells cannot exclude high grade squamous intraepithelial lesion on cytologic smear of cervix (ASC-H). 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 repeat in 3-6 months [facility]. ordered by PCP.?Abnormal Pap Smear:?yes, 05/23/21 LEEP FARAZ I, 04/24/21 [place] FARAZ II, positive HRHPV in 2006.?LMP and menses?09/24/21, Spotting with Aygestin and Lysteda, 06/10/21.?History of STD's:?Chlamydia.? Control:?Mirena intrauterine device for cycle control..?*Hep B Vac?completed.? * OB History:?Total pregnancies?2.?Total living children?2.?NVD?2.? * Allergies:?Metformin HCl: Di arrhea - Allergy, Victoza: Skin Rash - Allergy, Lysteda: Eye Redness - Allergy. Objective: * Vitals:? Assessment: Plan: * Treatment: * Images: Billing Information: * Visit Code:? * Procedure Codes:? * Electronic signature of Aneudy Aguirre MD on 12/25/2024 at 02:54 PM EST Sign off status: Pending * Appointment Provider:?Opal Aguirre M.D. Date:?03/22/2024 Generated for Jaime sinha/Christina/Mirian on:?12/25/2024 02:54 PM EST
--- OUTSIDE RECORDS SUMMARY | 2024-12-25 14:55 | XMS_ITS ---
Author Organization [employer] [facility] Address [address] [place] [id number] Care Team Providers Care Supervisor Sheet Manufacturing Name Role Phone MAYRASID CALLOWAY Unavailable [phone] REASON FOR VISIT Flu like symptoms unable to come in seeing her pcp MEDICATIONS Medication SIG (Take, Route, Fr equency, Duration) Notes Start Date End Date Status Mounjaro 12.5 MG/0.5ML 12.5mg Subcutaneo us weekly for 30 days Active Encounters Encounter Location Date Provider Diagnosis [facility] [address] [id number] 03/18/2024 SID REYES Essential (primary) hypertension I10 ; Pure hypercholesterolemia E78.00 ; Type 2 diabetes mellitus without complications E11.9 ; Other obesity due to excess calories E66.09 and Body mass index [BMI] 38.0-38.9, adult Z68.38 ASSESSMENTS Encounter Date Diagnosis Assessment Notes Treatment Notes Treatment Clinical Notes Section Notes 03/18/2024 Essential (primary) hypertension (ICD-10 - I10) #Weight Management 03/18/2024 Her it programmer is happy with her progress and our plan of care Will continue Mounjaro and increase to 15 mg She will continue her metformin, SGLT as well as Discussed importance of protein consumption for muscle maintenance as well as probiotics, B12 complex biotin , iron and other nutrients, To help avoid telogen effluvium while on weight loss medications such as GLP-1 6 week f/u Total time spent today was 30 minutes of which greater than 50% was spent on coordinating and counseling Patient has been found to be obese with a BMI of (38). Patient has class (2) obesity. We are a board certified obesity and weight management practice Patient has trialed behavioral modification, dietary restrictions and exercise for a minimum of 6 months The most recent [place] [employer] clinical endocrinologists and [place] [employer] guidelines recommend patients who have overweight BMI or obesity BMI, who also have metabolic syndrome, prediabetes, HLD, and other comorbidities or at risk of developing type 2 diabetes should aim for a weight loss goal of at least 10% of the baseline body weight Patient counseled regarding effects of GLP/GIP-1 agonists, and other FDA approved wgt loss meds with regards to a multifactorial approach of weight loss as mentioned above and not solely appetite suppression. We have discussed the mechanism of GLP-1's/GIP, dual incretins, appetitite suppressants I think this would be fantastic option for her given her metabolic workup and body composition We have discussed the risks and benefits and side effects including/and not limited to Sarcopenia, intestinal obstruction, constipation, nausea, lethargy, headache Discussed importance of protein consumption for muscle maintenance as well as strength and resistance training ,probiotics, B12 complex biotin , iron and other nutrients, To help avoid telogen effluvium We have discussed the lifelong requirement of nutritional supplementation And adherence to an exercise regimen as well as importance of follow-up We did discuss the neurohormonal changes that are occurring with these medications and Need for long-term Continued usage The patient understands and agrees There is no history of medullary thyroid cancer or multiple endocrine neoplasia There is also no history of cardiovascular disease, hypertension, palpitations, or arrhythmias In the setting of potential stimulant/amphetam ine use such as phentermine We have also discussed risks and benefits, and the use of compounded medications to help offset the national shortages as well as financial implications vs trade name drugs Patient was reassured and welcomed to the practice. We discussed that we stress a hollistic medical approach with emphasis on lifestyle modification. Patient was informed that a healthy lifestyle with exercise and good eating habits can help reduce his risk of medical complications. He is explained that obesity increases his risk of diabetes, cardiovascular disease, or organ damage. We spent a lot of time discussing the relationship between food, exercise, sleep, mental health and obesity. Patient was counseled on the importance EATING local, organic food when possible. Patient was educated on clean 15 and dirty dozen. I provided information about reading books called The Food Rules by Jamshid Pollen and Eat Fat Get Lean by Dr Miguelito Kelly. Self education is important in the journey for weight management. Patient was offered diagnostic testing. We want to measure visceral adiposity, advanced body composition, adverse lipids, fatty acid balance, risk for heart disease and atherosclerosis, markers of inflammation and genetic susceptibility. Patient was counseled on weight management and was advised to lose weight using A. Meal Replacement Products We discussed the lifelong requirement of nutritional supplementation and adherence to an exercise regimen as well as importance of dietary follow-up Patient was educated on the replacement products called optifast. This is a good way of taking fixed amount of calories. It has been shown in studies to be ineffective weight management tool. We also recommend maintaining adequate protein intake and muscle composition, 1.5mg/kg This however has to be coupled with lifestyle intervention as well as laboratory data and EKG monitoring. It is impossible to know how a person will tolerate complete meal replacement. The side effects of meal replacement and weight loss could include syncopal attacks, dizziness, gallstones, potential cholecystectomy, possible heart attack and even . The benefits of meal replacement would be potential weight loss but no guarantees can be made. Meal replacement products are not covered by insurance. Once the patient has bought these products we cannot return them B. Lifestyle management which includes several strategies as below 1. Eat a low carbohydrate good fat good protein diet. Eliminate refined carbohydrates from the diet. Continue blood sugar and sugared beverages. Eat local organic when possible. Cook your own meals. Read food labels. None about healthy snacks. Portion control and food with low glycemic index 2. Exercise regularly. Try to get at least 6000 steps a day. Use a predominant to track activity level. Consider using apps like [employer] excercise, myfitnesspal, lose it, stick as needed for self-monitoring and weight management. Consider group exercises. Consider hiring a personal banking assistant. Regular exercise is uribe to sustainable health and prevents as a buffer against weight regain 3. Sleep is most important for healing. Tried to sleep at least 8 hours a night. A good quality sleep needs a sleep ritual with ideal room temperature of around 68. It might help to take a shower and have no electronics in the room and sleep in a very dark room without artificial light. Start her sleep routine and get up early in the morning and go to bed on time 4. Make a social connection. Surround yourself with positive people with positive energy. Connect with friends and family. 5. Get into the habit of meditating and mindfulness while doing everything. 6. Go outside and connect with nature. C. Prescription medications Patient was educated on the use of prescription medications for medical weight loss. This is a growing list and includes phentermine, Topamax,Qsymia, contrave, belviq and saxenda. All prescription medications could have side effects including but not limited to kidney stones, seizure disorder cardiac arrhythmias heart attack pancreatitis etc. etc.. Patient was encouraged to read the prescription insert and have coaching with their pharmacist and make an informed decision about taking medication and know that these medications are being prescribed with good intentions and we do not know how a patient would react to her medication. Sudden medications are FDA approved for weight loss and there is also off label use depending on patient's inability to afford medications in an attempt to lose weight D. Behavioral counseling was done to establish a relationship between food and an mood. Patient was provided information about local counseling and psychiatry and Dr Vallecillo at [facility]. We would like to cover regular topics and build on low glycemic eating exercise mindful eating, using yoga and meditation along with deep breathing and connecting with friends and family. E. MASS PAT reviewed, Patient's current medications were reviewed and opinion was given on medication that can cause weight gain and can be substituted F. Patient was assessed for risk with obesity including and not limiting to atherosclerosis heart disease stroke kidney disease, restrictive lung disease, irritable bowel syndrome and overall mortality. Risk of developing prediabetes diabetes and metabolic syndrome was discussed G. Therapeutic plan: We have decided to make therapeutic plan which would include choosing wisely on calories restricting portion getting active, tracking weight, getting good quality sleep and working on time management H. Patient will follow up in (4) weeks for weight management Of note, some information is being carried forward from prior records for informational purposes only and is being cited so that efficiency, safety and quality of the patient's care is not compromised This note was prepared using voice recognition software and direct typing Please excuse inadvertent system archive analyst or typing errors, or uncorrected word substitutions Although every attempt has been made by the provider to proofread this document, occasional misspellings and typographical errors may still be present Due to the previous pandemic, and the use of personal protective equipment (PPE) This may decrease voice recognition accuracy Inadvertent system archive analyst errors may occur 03/18/2024 Pure hypercholesterolemia (ICD-10 - E78.00) #Weight Management 03/18/2024 Her it programmer is happy with her progress and our plan of care Will continue Mounjaro and increase to 15 mg She will continue her metformin, SGLT as well as Discussed importance of protein consumption for muscle maintenance as well as probiotics, B12 complex biotin , iron and other nutrients, To help avoid telogen effluvium while on weight loss medications such as GLP-1 6 week f/u Total time spent today was 30 minutes of which greater than 50% was spent on coordinating and counseling Patient has been found to be obese with a BMI of (38). Patient has class (2) obesity. We are a board certified obesity and weight management practice Patient has trialed behavioral modification, dietary restrictions and exercise for a minimum of 6 months The most recent [place] [employer] of clinical endocrinologists and [place] [employer] guidelines recommend patients who have overweight BMI or obesity BMI, who also have metabolic syndrome, prediabetes, HLD, and other comorbidities or at risk of developing type 2 diabetes should aim for a weight loss goal of at least 10% of the baseline body weight Patient counseled regarding effects of GLP/GIP-1 agonists, and other FDA approved wgt loss meds with regards to a multifactorial approach of weight loss as mentioned above and not solely appetite suppression. We have discussed the mechanism of GLP-1's/GIP, dual incretins, appetitite suppressants I think this would be fantastic option for her given her metabolic workup and body composition We have discussed the risks and benefits and side effects including/and not limited to Sarcopenia, intestinal obstruction, constipation, nausea, lethargy, headache Discussed importance of protein consumption for muscle maintenance as well as strength and resistance training ,probiotics, B12 complex biotin , iron and other nutrients, To help avoid telogen effluvium We have discussed the lifelong requirement of nutritional supplementation And adherence to an exercise regimen as well as importance of follow-up We did discuss the neurohormonal changes that are occurring with these medications and Need for long-term Continued usage The patient understands and agrees There is no history of medullary thyroid cancer or multiple endocrine neoplasia There is also no history of cardiovascular disease, hypertension, palpitations, or arrhythmias In the setting of potential stimulant/amphetam ine use such as phentermine We have also discussed risks and benefits, and the use of compounded medications to help offset the national shortages as well as financial implications vs trade name drugs Patient was reassured and welcomed to the practice. We discussed that we stress a hollistic medical approach with emphasis on lifestyle modification. Patient was informed that a healthy lifestyle with exercise and good eating habits can help reduce his risk of medical complications. He is explained that obesity increases his risk of diabetes, cardiovascular disease, or organ damage. We spent a lot of time discussing the relationship between food, exercise, sleep, mental health and obesity. Patient was counseled on the importance EATING local, organic food when possible. Patient was educated on clean 15 and dirty dozen. I provided information about reading books called The Food Rules by Jamshid Villalobos and Eat Fat Get Lean by Dr Miguelito Kelly. Self education is important in the journey for weight management. Patient was offered diagnostic testing. We want to measure visceral adiposity, advanced body composition, adverse lipids, fatty acid balance, risk for heart disease and atherosclerosis, markers of inflammation and genetic susceptibility. Patient was counseled on weight management and was advised to lose weight using A. Meal Replacement Products We discussed the lifelong requirement of nutritional supplementation and adherence to an exercise regimen as well as importance of dietary follow-up Patient was educated on the replacement products called optifast. This is a good way of taking fixed amount of calories. It has been shown in studies to be ineffective weight management tool. We also recommend maintaining adequate protein intake and muscle composition, 1.5mg/kg This however has to be coupled with lifestyle intervention as well as laboratory data and EKG monitoring. It is impossible to know how a person will tolerate complete meal replacement. The side effects of meal replacement and weight loss could include syncopal attacks, dizziness, gallstones, potential cholecystectomy, possible heart attack and even . The benefits of meal replacement would be potential weight loss but no guarantees can be made. Meal replacement products are not covered by insurance. Once the patient has bought these products we cannot return them B. Lifestyle management which includes several strategies as below 1. Eat a low carbohydrate good fat good protein diet. Eliminate refined carbohydrates from the diet. Continue blood sugar and sugared beverages. Eat local organic when possible. Cook your own meals. Read food labels. None about healthy snacks. Portion control and food with low glycemic index 2. Exercise regularly. Try to get at least 6000 steps a day. Use a predominant to track activity level. Consider using apps like [employer] excercise, myfitnesspal, lose it, stick as needed for self-monitoring and weight management. Consider group exercises. Consider hiring a personal banking assistant. Regular exercise is uribe to sustainable health and prevents as a buffer against weight regain 3. Sleep is most important for healing. Tried to sleep at least 8 hours a night. A good quality sleep needs a sleep ritual with ideal room temperature of around 68. It might help to take a shower and have no electronics in the room and sleep in a very dark room without artificial light. Start her sleep routine and get up early in the morning and go to bed on time 4. Make a social connection. Surround yourself with positive people with positive energy. Connect with friends and family. 5. Get into the habit of meditating and mindfulness while doing everything. 6. Go outside and connect with nature. C. Prescription medications Patient was educated on the use of prescription medications for medical weight loss. This is a growing list and includes phentermine, Topamax,Qsymia, contrave, belviq and saxenda. All prescription medications could have side effects including but not limited to kidney stones, seizure disorder cardiac arrhythmias heart attack pancreatitis etc. etc.. Patient was encouraged to read the prescription insert and have coaching with their pharmacist and make an informed decision about taking medication and know that these medications are being prescribed with good intentions and we do not know how a patient would react to her medication. Sudden medications are FDA approved for weight loss and there is also off label use depending on patient's inability to afford medications in an attempt to lose weight D. Behavioral counseling was done to establish a relationship between food and an mood. Patient was provided information about local counseling and psychiatry and Dr Vallecillo at [facility]. We would like to cover regular topics and build on low glycemic eating exercise mindful eating, using yoga and meditation along with deep breathing and connecting with friends and family. E. MASS PAT reviewed, Patient's current medications were reviewed and opinion was given on medication that can cause weight gain and can be substituted F. Patient was assessed for risk with obesity including and not limiting to atherosclerosis heart disease stroke kidney disease, restrictive lung disease, irritable bowel syndrome and overall mortality. Risk of developing prediabetes diabetes and metabolic syndrome was discussed G. Therapeutic plan: We have decided to make therapeutic plan which would include choosing wisely on calories restricting portion getting active, tracking weight, getting good quality sleep and working on time management H. Patient will follow up in (4) weeks for weight management Of note, some information is being carried forward from prior records for informational purposes only and is being cited so that efficiency, safety and quality of the patient's care is not compromised This note was prepared using voice recognition software and direct typing Please excuse inadvertent system archive analyst or typing errors, or uncorrected word substitutions Although every attempt has been made by the provider to proofread this document, occasional misspellings and typographical errors may still be present Due to the previous pandemic, and the use of personal protective equipment (PPE) This may decrease voice recognition accuracy Inadvertent system archive analyst errors may occur 03/18/2024 Type 2 diabetes mellitus without complications (ICD-10 - E11.9) #Weight Management 03/18/2024 Her it programmer is happy with her progress and our plan of care Will continue Mounjaro and increase to 15 mg She will continue her metformin, SGLT as well as Discussed importance of protein consumption for muscle maintenance as well as probiotics, B12 complex biotin , iron and other nutrients, To help avoid telogen effluvium while on weight loss medications such as GLP-1 6 week f/u Total time spent today was 30 minutes of which greater than 50% was spent on coordinating and counseling Patient has been found to be obese with a BMI of (38). Patient has class (2) obesity. We are a board certified obesity and weight management practice Patient has trialed behavioral modification, dietary restrictions and exercise for a minimum of 6 months The most recent [place] [employer] of clinical endocrinologists and [place] [employer] guidelines recommend patients who have overweight BMI or obesity BMI, who also have metabolic syndrome, prediabetes, HLD, and other comorbidities or at risk of developing type 2 diabetes should aim for a weight loss goal of at least 10% of the baseline body weight Patient counseled regarding effects of GLP/GIP-1 agonists, and other FDA approved wgt loss meds with regards to a multifactorial approach of weight loss as mentioned above and not solely appetite suppression. We have discussed the mechanism of GLP-1's/GIP, dual incretins, appetitite suppressants I think this would be fantastic option for her given her metabolic workup and body composition We have discussed the risks and benefits and side effects including/and not limited to Sarcopenia, intestinal obstruction, constipation, nausea, lethargy, headache Discussed importance of protein consumption for muscle maintenance as well as strength and resistance training ,probiotics, B12 complex biotin , iron and other nutrients, To help avoid telogen effluvium We have discussed the lifelong requirement of nutritional supplementation And adherence to an exercise regimen as well as importance of follow-up We did discuss the neurohormonal changes that are occurring with these medications and Need for long-term Continued usage The patient understands and agrees There is no history of medullary thyroid cancer or multiple endocrine neoplasia There is also no history of cardiovascular disease, hypertension, palpitations, or arrhythmias In the setting of potential stimulant/amphetam ine use such as phentermine We have also discussed risks and benefits, and the use of compounded medications to help offset the national shortages as well as financial implications vs trade name drugs Patient was reassured and welcomed to the practice. We discussed that we stress a hollistic medical approach with emphasis on lifestyle modification. Patient was informed that a healthy lifestyle with exercise and good eating habits can help reduce his risk of medical complications. He is explained that obesity increases his risk of diabetes, cardiovascular disease, or organ damage. We spent a lot of time discussing the relationship between food, exercise, sleep, mental health and obesity. Patient was counseled on the importance EATING local, organic food when possible. Patient was educated on clean 15 and dirty dozen. I provided information about reading books called The Food Rules by Jamshid Villalobos and Eat Fat Get Lean by Dr Miguelito Kelly. Self education is important in the journey for weight management. Patient was offered diagnostic testing. We want to measure visceral adiposity, advanced body composition, adverse lipids, fatty acid balance, risk for heart disease and atherosclerosis, markers of inflammation and genetic susceptibility. Patient was counseled on weight management and was advised to lose weight using A. Meal Replacement Products We discussed the lifelong requirement of nutritional supplementation and adherence to an exercise regimen as well as importance of dietary follow-up Patient was educated on the replacement products called optifast. This is a good way of taking fixed amount of calories. It has been shown in studies to be ineffective weight management tool. We also recommend maintaining adequate protein intake and muscle composition, 1.5mg/kg This however has to be coupled with lifestyle intervention as well as laboratory data and EKG monitoring. It is impossible to know how a person will tolerate complete meal replacement. The side effects of meal replacement and weight loss could include syncopal attacks, dizziness, gallstones, potential cholecystectomy, possible heart attack and even . The benefits of meal replacement would be potential weight loss but no guarantees can be made. Meal replacement products are not covered by insurance. Once the patient has bought these products we cannot return them B. Lifestyle management which includes several strategies as below 1. Eat a low carbohydrate good fat good protein diet. Eliminate refined carbohydrates from the diet. Continue blood sugar and sugared beverages. Eat local organic when possible. Cook your own meals. Read food labels. None about healthy snacks. Portion control and food with low glycemic index 2. Exercise regularly. Try to get at least 6000 steps a day. Use a predominant to track activity level. Consider using apps like Akanoo, Tang Songpal, lose it, stick as needed for self-monitoring and weight management. Consider group exercises. Consider hiring a personal banking assistant. Regular exercise is uribe to sustainable health and prevents as a buffer against weight regain 3. Sleep is most important for healing. Tried to sleep at least 8 hours a night. A good quality sleep needs a sleep ritual with ideal room temperature of around 68. It might help to take a shower and have no electronics in the room and sleep in a very dark room without artificial light. Start her sleep routine and get up early in the morning and go to bed on time 4. Make a social connection. Surround yourself with positive people with positive energy. Connect with friends and family. 5. Get into the habit of meditating and mindfulness while doing everything. 6. Go outside and connect with nature. C. Prescription medications Patient was educated on the use of prescription medications for medical weight loss. This is a growing list and includes phentermine, Topamax,Qsymia, contrave, belviq and saxenda. All prescription medications could have side effects including but not limited to kidney stones, seizure disorder cardiac arrhythmias heart attack pancreatitis etc. etc.. Patient was encouraged to read the prescription insert and have coaching with their pharmacist and make an informed decision about taking medication and know that these medications are being prescribed with good intentions and we do not know how a patient would react to her medication. Sudden medications are FDA approved for weight loss and there is also off label use depending on patient's inability to afford medications in an attempt to lose weight D. Behavioral counseling was done to establish a relationship between food and an mood. Patient was provided information about local counseling and psychiatry and Dr Vallecillo at [facility]. We would like to cover regular topics and build on low glycemic eating exercise mindful eating, using yoga and meditation along with deep breathing and connecting with friends and family. E. MASS PAT reviewed, Patient's current medications were reviewed and opinion was given on medication that can cause weight gain and can be substituted F. Patient was assessed for risk with obesity including and not limiting to atherosclerosis heart disease stroke kidney disease, restrictive lung disease, irritable bowel syndrome and overall mortality. Risk of developing prediabetes diabetes and metabolic syndrome was discussed G. Therapeutic plan: We have decided to make therapeutic plan which would include choosing wisely on calories restricting portion getting active, tracking weight, getting good quality sleep and working on time management H. Patient will follow up in (4) weeks for weight management Of note, some information is being carried forward from prior records for informational purposes only and is being cited so that efficiency, safety and quality of the patient's care is not compromised This note was prepared using voice recognition software and direct typing Please excuse inadvertent system archive analyst or typing errors, or uncorrected word substitutions Although every attempt has been made by the provider to proofread this document, occasional misspellings and typographical errors may still be present Due to the previous pandemic, and the use of personal protective equipment (PPE) This may decrease voice recognition accuracy Inadvertent system archive analyst errors may occur 03/18/2024 Other obesity due to excess calories (ICD-10 - E66.09) #Weight Management 03/18/2024 Her it programmer is happy with her progress and our plan of care Will continue Mounjaro and increase to 15 mg She will continue her metformin, SGLT as well as Discussed importance of protein consumption for muscle maintenance as well as probiotics, B12 complex biotin , iron and other nutrients, To help avoid telogen effluvium while on weight loss medications such as GLP-1 6 week f/u Total time spent today was 30 minutes of which greater than 50% was spent on coordinating and counseling Patient has been found to be obese with a BMI of (38). Patient has class (2) obesity. We are a board certified obesity and weight management practice Patient has trialed behavioral modification, dietary restrictions and exercise for a minimum of 6 months The most recent [place] [employer]ocrin[employer] and [place] [employer] guidelines recommend patients who have overweight BMI or obesity BMI, who also have metabolic syndrome, prediabetes, HLD, and other comorbidities or at risk of developing type 2 diabetes should aim for a weight loss goal of at least 10% of the baseline body weight Patient counseled regarding effects of GLP/GIP-1 agonists, and other FDA approved wgt loss meds with regards to a multifactorial approach of weight loss as mentioned above and not solely appetite suppression. We have discussed the mechanism of GLP-1's/GIP, dual incretins, appetitite suppressants I think this would be fantastic option for her given her metabolic workup and body composition We have discussed the risks and benefits and side effects including/and not limited to Sarcopenia, intestinal obstruction, constipation, nausea, lethargy, headache Discussed importance of protein consumption for muscle maintenance as well as strength and resistance training ,probiotics, B12 complex biotin , iron and other nutrients, To help avoid telogen effluvium We have discussed the lifelong requirement of nutritional supplementation And adherence to an exercise regimen as well as importance of follow-up We did discuss the neurohormonal changes that are occurring with these medications and Need for long-term Continued usage The patient understands and agrees There is no history of medullary thyroid cancer or multiple endocrine neoplasia There is also no history of cardiovascular disease, hypertension, palpitations, or arrhythmias In the setting of potential stimulant/amphetam ine use such as phentermine We have also discussed risks and benefits, and the use of compounded medications to help offset the national shortages as well as financial implications vs trade name drugs Patient was reassured and welcomed to the practice. We discussed that we stress a hollistic medical approach with emphasis on lifestyle modification. Patient was informed that a healthy lifestyle with exercise and good eating habits can help reduce his risk of medical complications. He is explained that obesity increases his risk of diabetes, cardiovascular disease, or organ damage. We spent a lot of time discussing the relationship between food, exercise, sleep, mental health and obesity. Patient was counseled on the importance EATING local, organic food when possible. Patient was educated on clean 15 and dirty dozen. I provided information about reading books called The Food Rules by Jamshid Villalobos and Eat Fat Get Lean by Dr Miguelito Kelly. Self education is important in the journey for weight management. Patient was offered diagnostic testing. We want to measure visceral adiposity, advanced body composition, adverse lipids, fatty acid balance, risk for heart disease and atherosclerosis, markers of inflammation and genetic susceptibility. Patient was counseled on weight management and was advised to lose weight using A. Meal Replacement Products We discussed the lifelong requirement of nutritional supplementation and adherence to an exercise regimen as well as importance of dietary follow-up Patient was educated on the replacement products called optifast. This is a good way of taking fixed amount of calories. It has been shown in studies to be ineffective weight management tool. We also recommend maintaining adequate protein intake and muscle composition, 1.5mg/kg This however has to be coupled with lifestyle intervention as well as laboratory data and EKG monitoring. It is impossible to know how a person will tolerate complete meal replacement. The side effects of meal replacement and weight loss could include syncopal attacks, dizziness, gallstones, potential cholecystectomy, possible heart attack and even . The benefits of meal replacement would be potential weight loss but no guarantees can be made. Meal replacement products are not covered by insurance. Once the patient has bought these products we cannot return them B. Lifestyle management which includes several strategies as below 1. Eat a low carbohydrate good fat good protein diet. Eliminate refined carbohydrates from the diet. Continue blood sugar and sugared beverages. Eat local organic when possible. Cook your own meals. Read food labels. None about healthy snacks. Portion control and food with low glycemic index 2. Exercise regularly. Try to get at least 6000 steps a day. Use a predominant to track activity level. Consider using apps like Akanoo, myfitCSRpal, lose it, stick as needed for self-monitoring and weight management. Consider group exercises. Consider hiring a personal banking assistant. Regular exercise is uribe to sustainable health and prevents as a buffer against weight regain 3. Sleep is most important for healing. Tried to sleep at least 8 hours a night. A good quality sleep needs a sleep ritual with ideal room temperature of around 68. It might help to take a shower and have no electronics in the room and sleep in a very dark room without artificial light. Start her sleep routine and get up early in the morning and go to bed on time 4. Make a social connection. Surround yourself with positive people with positive energy. Connect with friends and family. 5. Get into the habit of meditating and mindfulness while doing everything. 6. Go outside and connect with nature. C. Prescription medications Patient was educated on the use of prescription medications for medical weight loss. This is a growing list and includes phentermine, Topamax,Qsymia, contrave, belviq and saxenda. All prescription medications could have side effects including but not limited to kidney stones, seizure disorder cardiac arrhythmias heart attack pancreatitis etc. etc.. Patient was encouraged to read the prescription insert and have coaching with their pharmacist and make an informed decision about taking medication and know that these medications are being prescribed with good intentions and we do not know how a patient would react to her medication. Sudden medications are FDA approved for weight loss and there is also off label use depending on patient's inability to afford medications in an attempt to lose weight D. Behavioral counseling was done to establish a relationship between food and an mood. Patient was provided information about local counseling and psychiatry and Dr Vallecillo at [facility]. We would like to cover regular topics and build on low glycemic eating exercise mindful eating, using yoga and meditation along with deep breathing and connecting with friends and family. E. MASS PAT reviewed, Patient's current medications were reviewed and opinion was given on medication that can cause weight gain and can be substituted F. Patient was assessed for risk with obesity including and not limiting to atherosclerosis heart disease stroke kidney disease, restrictive lung disease, irritable bowel syndrome and overall mortality. Risk of developing prediabetes diabetes and metabolic syndrome was discussed G. Therapeutic plan: We have decided to make therapeutic plan which would include choosing wisely on calories restricting portion getting active, tracking weight, getting good quality sleep and working on time management H. Patient will follow up in (4) weeks for weight management Of note, some information is being carried forward from prior records for informational purposes only and is being cited so that efficiency, safety and quality of the patient's care is not compromised This note was prepared using voice recognition software and direct typing Please excuse inadvertent system archive analyst or typing errors, or uncorrected word substitutions Although every attempt has been made by the provider to proofread this document, occasional misspellings and typographical errors may still be present Due to the previous pandemic, and the use of personal protective equipment (PPE) This may decrease voice recognition accuracy Inadvertent system archive analyst errors may occur 03/18/2024 Body mass index [BMI ] 38.0-38.9, adult (ICD-10 - Z68.38) #Weight Management 03/18/2024 Her it programmer is happy with her progress and our plan of care Will continue Mounjaro and increase to 15 mg She will continue her metformin, SGLT as well as Discussed importance of protein consumption for muscle maintenance as well as probiotics, B12 complex biotin , iron and other nutrients, To help avoid telogen effluvium while on weight loss medications such as GLP-1 6 week f/u Total time spent today was 30 minutes of which greater than 50% was spent on coordinating and counseling Patient has been found to be obese with a BMI of (38). Patient has class (2) obesity. We are a board certified obesity and weight management practice Patient has trialed behavioral modification, dietary restrictions and exercise for a minimum of 6 months The most recent [place] [employer] endocrinologists and [place] [employer] guidelines recommend patients who have overweight BMI or obesity BMI, who also have metabolic syndrome, prediabetes, HLD, and other comorbidities or at risk of developing type 2 diabetes should aim for a weight loss goal of at least 10% of the baseline body weight Patient counseled regarding effects of GLP/GIP-1 agonists, and other FDA approved wgt loss meds with regards to a multifactorial approach of weight loss as mentioned above and not solely appetite suppression. We have discussed the mechanism of GLP-1's/GIP, dual incretins, appetitite suppressants I think this would be fantastic option for her given her metabolic workup and body composition We have discussed the risks and benefits and side effects including/and not limited to Sarcopenia, intestinal obstruction, constipation, nausea, lethargy, headache Discussed importance of protein consumption for muscle maintenance as well as strength and resistance training ,probiotics, B12 complex biotin , iron and other nutrients, To help avoid telogen effluvium We have discussed the lifelong requirement of nutritional supplementation And adherence to an exercise regimen as well as importance of follow-up We did discuss the neurohormonal changes that are occurring with these medications and Need for long-term Continued usage The patient understands and agrees There is no history of medullary thyroid cancer or multiple endocrine neoplasia There is also no history of cardiovascular disease, hypertension, palpitations, or arrhythmias In the setting of potential stimulant/amphetam ine use such as phentermine We have also discussed risks and benefits, and the use of compounded medications to help offset the national shortages as well as financial implications vs trade name drugs Patient was reassured and welcomed to the practice. We discussed that we stress a hollistic medical approach with emphasis on lifestyle modification. Patient was informed that a healthy lifestyle with exercise and good eating habits can help reduce his risk of medical complications. He is explained that obesity increases his risk of diabetes, cardiovascular disease, or organ damage. We spent a lot of time discussing the relationship between food, exercise, sleep, mental health and obesity. Patient was counseled on the importance EATING local, organic food when possible. Patient was educated on clean 15 and dirty dozen. I provided information about reading books called The Food Rules by Jamshid Villalobos and Eat Fat Get Lean by Dr Miguelito Kelly. Self education is important in the journey for weight management. Patient was offered diagnostic testing. We want to measure visceral adiposity, advanced body composition, adverse lipids, fatty acid balance, risk for heart disease and atherosclerosis, markers of inflammation and genetic susceptibility. Patient was counseled on weight management and was advised to lose weight using A. Meal Replacement Products We discussed the lifelong requirement of nutritional supplementation and adherence to an exercise regimen as well as importance of dietary follow-up Patient was educated on the replacement products called optifast. This is a good way of taking fixed amount of calories. It has been shown in studies to be ineffective weight management tool. We also recommend maintaining adequate protein intake and muscle composition, 1.5mg/kg This however has to be coupled with lifestyle intervention as well as laboratory data and EKG monitoring. It is impossible to know how a person will tolerate complete meal replacement. The side effects of meal replacement and weight loss could include syncopal attacks, dizziness, gallstones, potential cholecystectomy, possible heart attack and even . The benefits of meal replacement would be potential weight loss but no guarantees can be made. Meal replacement products are not covered by insurance. Once the patient has bought these products we cannot return them B. Lifestyle management which includes several strategies as below 1. Eat a low carbohydrate good fat good protein diet. Eliminate refined carbohydrates from the diet. Continue blood sugar and sugared beverages. Eat local organic when possible. Cook your own meals. Read food labels. None about healthy snacks. Portion control and food with low glycemic index 2. Exercise regularly. Try to get at least 6000 steps a day. Use a predominant to track activity level. Consider using apps like Akanoo, Tang Songpal, lose it, stick as needed for self-monitoring and weight management. Consider group exercises. Consider hiring a personal banking assistant. Regular exercise is uribe to sustainable health and prevents as a buffer against weight regain 3. Sleep is most important for healing. Tried to sleep at least 8 hours a night. A good quality sleep needs a sleep ritual with ideal room temperature of around 68. It might help to take a shower and have no electronics in the room and sleep in a very dark room without artificial light. Start her sleep routine and get up early in the morning and go to bed on time 4. Make a social connection. Surround yourself with positive people with positive energy. Connect with friends and family. 5. Get into the habit of meditating and mindfulness while doing everything. 6. Go outside and connect with nature. C. Prescription medications Patient was educated on the use of prescription medications for medical weight loss. This is a growing list and includes phentermine, Topamax,Qsymia, contrave, belviq and saxenda. All prescription medications could have side effects including but not limited to kidney stones, seizure disorder cardiac arrhythmias heart attack pancreatitis etc. etc.. Patient was encouraged to read the prescription insert and have coaching with their pharmacist and make an informed decision about taking medication and know that these medications are being prescribed with good intentions and we do not know how a patient would react to her medication. Sudden medications are FDA approved for weight loss and there is also off label use depending on patient's inability to afford medications in an attempt to lose weight D. Behavioral counseling was done to establish a relationship between food and an mood. Patient was provided information about local counseling and psychiatry and Dr Vallecillo at [facility]. We would like to cover regular topics and build on low glycemic eating exercise mindful eating, using yoga and meditation along with deep breathing and connecting with friends and family. E. MASS PAT reviewed, Patient's current medications were reviewed and opinion was given on medication that can cause weight gain and can be substituted F. Patient was assessed for risk with obesity including and not limiting to atherosclerosis heart disease stroke kidney disease, restrictive lung disease, irritable bowel syndrome and overall mortality. Risk of developing prediabetes diabetes and metabolic syndrome was discussed G. Therapeutic plan: We have decided to make therapeutic plan which would include choosing wisely on calories restricting portion getting active, tracking weight, getting good quality sleep and working on time management H. Patient will follow up in (4) weeks for weight management Of note, some information is being carried forward from prior records for informational purposes only and is being cited so that efficiency, safety and quality of the patient's care is not compromised This note was prepared using voice recognition software and direct typing Please excuse inadvertent system archive analyst or typing errors, or uncorrected word substitutions Although every attempt has been made by the provider to proofread this document, occasional misspellings and typographical errors may still be present Due to the previous pandemic, and the use of personal protective equipment (PPE) This may decrease voice recognition accuracy Inadvertent system archive analyst errors may occur PLAN OF TREATMENT Medication Medication Name Sig Start Date Stop Date Notes Mounjaro 12.5 MG/0.5ML 12.5mg Subcutaneo us weekly for 30 days Progress Notes * Verito SORTOsDOB: [birth year] (49 yo F)Acc No.[id number]:03/18/2024 Patient:??Vonnie SORTO Provider:??SID REYES NP :[id number]?Age:48 Y?Sex:Fe male Date:03/18/2024 Address:[address] [place], [place] [id number] Subjective: * Chief Complaints: * ?1. Flu like symptoms u yolanda to come in seeing her pcp. * HPI: ?Constitutional:? Patient here today for a weight management f/u visit ?Patient seen and examined. ? Full past medical history, social history, family history, ?allergies and current medications were reviewed and updated. ?Body composition analysis reviewed today, as expected increased BMI, ?visceral adiposity, fat mass index, waist cirumference ?Good skeletal mass composition, Good water composition ?Caloric energy expenditure discussed ?#Weight Management ?03/18/2024 ?Currently getting Xolair injections every 2 weeks for her asthma ?She has come off of steroids which is great news ?We have been able to get her off of insulin entirely ?Her A1c has decreased and she is happy with this. ?Her it programmer is happy with her progress and our management ?and reports stability in her overall health. ?A1c is improved to 7 and per last visit with PCP. ?Current diabetic regimen ?jardiance 25 mg, mounjaro 12.5mg, 1000mg BID Metformin ?Her sugars are significantly improved on the Dual incretin, SGLT and metformin ?03/18/2024, Weight , BMI ?01/29/2024, Weight 231lbs , BMI (+6lbs) ?12/07/2023, Weight 225lb , BMI 36 ?08/14/2023: Weight 226 , BMI 36.27 (-5 lbs) ?05/14/2023: Weight 231lbs, BMI 38, (-9lbs) ?03/16/2023: Weight 240lbs, BMI ?01/12/2023: Weight 258lbs, BMI 42 (+7lbs) ?11/27/2022: Weight 251lbs, BMI 41, (-4lbs) ?10/03/2022: Weight 255lbs BMI 41 ?08/22/2022: Weight 253lbs, BMI 41(-5lbs) ?07/23/2022: Weight 258 lbs, BMI 42: ?Patient referred to us from PCP Manda ?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 ?Metabolic workup: ?Thyroid WNL ?Diabetes, type 2 ?Diet: grab and go, works 3 jobs ?Exercise: Currently not tracking steps daily. ?Non-smoker. ?ETOH use:. * ROS:?All Other Systems:?Review of Systems (ROS)??All others negative except those mentioned in HPI.? * Medical History:?? Objective: * Examination: ?General Examination: ?GENERAL APPEARANCE:??in no acute distress, well developed, well nourished.??HEAD:??normocephalic, atraumatic.??EYES:??pupils equal, round, reactive to light and accommodation.??EARS:??normal.??ORAL CAVITY:??mucosa moist.??THROAT:??clear.??NECK/THYROID:??neck supple, full range of motion, no cervical lymphadenopathy.??SKIN:??no suspicious lesions, warm and dry.??HEART:??no murmurs, regular rate and rhythm, S1, S2 normal.??LUNGS:??clear to auscultation bilaterally.??ABDOMEN:??normal, bowel sounds present, soft, nontender, nondistended.??EXTREMITIES:??no clubbing, cyanosis, or edema.??NEUROLOGIC:??nonfocal, motor strength normal upper and lower extremities, sensory exam intact.? Assessment: * Assessment: 1.??Essential (primary) hype rtension - I10??2.??Pure hypercholesterolemia - E78.00??3.??Type 2 diabetes mellitus without complications - E11.9??4.??Other obesity due to excess calories - E66.09??5.??Body mass index [BMI] 38.0-38.9, adult - Z68.38?? #Weight Management 03/18/2024 Her it programmer is happy with her progress and our plan of care Will continue Mounjaro and increase to 15 mg She will continue her metformin, SGLT as well as Discussed importance of protein consumption for muscle maintenance as well as probiotics, B12 complex biotin , iron and other nutrients, To help avoid telogen effluvium while on weight loss medications such as GLP-1 6 week f/u Total time spent today was 30 minutes of which greater than 50% was spent on coordinating and counseling Patient has been found to be obese with a BMI of (38). Patient has class (2) obesity. We are a board certified obesity and weight management practice Patient has trialed behavioral modification, dietary restrictions and exercise for a minimum of 6 months The most recent [place] [employer] of clinical endocrinologists and [place] [employer] guidelines recommend patients who have overweight BMI or obesity BMI, who also have metabolic syndrome, prediabetes, HLD, and other comorbidities or at risk of developing type 2 diabetes should aim for a weight loss goal of at least 10% of the baseline body weight Patient counseled regarding effects of GLP/GIP-1 agonists, and other FDA approved wgt loss meds with regards to a multifactorial approach of weight loss as mentioned above and not solely appetite suppression. We have discussed the mechanism of GLP-1's/GIP, dual incretins, appetitite suppressants I think this would be fantastic option for her given her metabolic workup and body composition We have discussed the risks and benefits and side effects including/and not limited to Sarcopenia, intestinal obstruction, constipation, nausea, lethargy, headache Discussed importance of protein consumption for muscle maintenance as well as strength and resistance training ,probiotics, B12 complex biotin , iron and other nutrients, To help avoid telogen effluvium We have discussed the lifelong requirement of nutritional supplementation And adherence to an exercise regimen as well as importance of follow-up We did discuss the neurohormonal changes that are occurring with these medications and Need for long-term Continued usage The patient understands and agrees There is no history of medullary thyroid cancer or multiple endocrine neoplasia There is also no history of cardiovascular disease, hypertension, palpitations, or arrhythmias In the setting of potential stimulant/amphetamine use such as phentermine We have also discussed risks and benefits, and the use of compounded medications to help offset the national shortages as well as financial implications vs trade name drugs Patient was reassured and welcomed to the practice. We discussed that we stress a hollistic medical approach with emphasis on lifestyle modification. Patient was informed that a healthy lifestyle with exercise and good eating habits can help reduce his risk of medical complications. He is explained that obesity increases his risk of diabetes, cardiovascular disease, or organ damage. We spent a lot of time discussing the relationship between food, exercise, sleep, mental health and obesity. Patient was counseled on the importance EATING local, organic food when possible. Patient was educated on clean 15 and dirty dozen. I provided information about reading books called The Food Rules by Jamshid Villalobos and Eat Fat Get Lean by Dr Miguelito Kelly. Self education is important in the journey for weight management. Patient was offered diagnostic testing. We want to measure visceral adiposity, advanced body composition, adverse lipids, fatty acid balance, risk for heart disease and atherosclerosis, markers of inflammation and genetic susceptibility. Patient was counseled on weight management and was advised to lose weight using A. Meal Replacement Products We discussed the lifelong requirement of nutritional supplementation and adherence to an exercise regimen as well as importance of dietary follow-up Patient was educated on the replacement products called optifast. This is a good way of taking fixed amount of calories. It has been shown in studies to be ineffective weight management tool. We also recommend maintaining adequate protein intake and muscle composition, 1.5mg/kg This however has to be coupled with lifestyle intervention as well as laboratory data and EKG monitoring. It is impossible to know how a person will tolerate complete meal replacement. The side effects of meal replacement and weight loss could include syncopal attacks, dizziness, gallstones, potential cholecystectomy, possible heart attack and even . The benefits of meal replacement would be potential weight loss but no guarantees can be made. Meal replacement products are not covered by insurance. Once the patient has bought these products we cannot return them B. Lifestyle management which includes several strategies as below 1. Eat a low carbohydrate good fat good protein diet. Eliminate refined carbohydrates from the diet. Continue blood sugar and sugared beverages. Eat local organic when possible. Cook your own meals. Read food labels. None about healthy snacks. Portion control and food with low glycemic index 2. Exercise regularly. Try to get at least 6000 steps a day. Use a predominant to track activity level. Consider using apps like Akanoo, Tang Songpal, lose it, stick as needed for self-monitoring and weight management. Consider group exercises. Consider hiring a personal banking assistant. Regular exercise is uribe to sustainable health and prevents as a buffer against weight regain 3. Sleep is most important for healing. Tried to sleep at least 8 hours a night. A good quality sleep needs a sleep ritual with ideal room temperature of around 68. It might help to take a shower and have no electronics in the room and sleep in a very dark room without artificial light. Start her sleep routine and get up early in the morning and go to bed on time 4. Make a social connection. Surround yourself with positive people with positive energy. Connect with friends and family. 5. Get into the habit of meditating and mindfulness while doing everything. 6. Go outside and connect with nature. C. Prescription medications Patient was educated on the use of prescription medications for medical weight loss. This is a growing list and includes phentermine, Topamax,Qsymia, contrave, belviq and saxenda. All prescription medications could have side effects including but not limited to kidney stones, seizure disorder cardiac arrhythmias heart attack pancreatitis etc. etc.. Patient was encouraged to read the prescription insert and have coaching with their pharmacist and make an informed decision about taking medication and know that these medications are being prescribed with good intentions and we do not know how a patient would react to her medication. Sudden medications are FDA approved for weight loss and there is also off label use depending on patient's inability to afford medications in an attempt to lose weight D. Behavioral counseling was done to establish a relationship between food and an mood. Patient was provided information about local counseling and psychiatry and Dr Vallecillo at [facility]. We would like to cover regular topics and build on low glycemic eating exercise mindful eating, using yoga and meditation along with deep breathing and connecting with friends and family. E. MASS PAT reviewed, Patient's current medications were reviewed and opinion was given on medication that can cause weight gain and can be substituted F. Patient was assessed for risk with obesity including and not limiting to atherosclerosis heart disease stroke kidney disease, restrictive lung disease, irritable bowel syndrome and overall mortality. Risk of developing prediabetes diabetes and metabolic syndrome was discussed G. Therapeutic plan: We have decided to make therapeutic plan which would include choosing wisely on calories restricting portion getting active, tracking weight, getting good quality sleep and working on time management H. Patient will follow up in (4) weeks for weight management Of note, some information is being carried forward from prior records for informational purposes only and is being cited so that efficiency, safety and quality of the patient's care is not compromised This note was prepared using voice recognition software and direct typing Please excuse inadvertent system archive analyst or typing errors, or uncorrected word substitutions Although every attempt has been made by the provider to proofread this document, occasional misspellings and typographical errors may still be present Due to the previous pandemic, and the use of personal protective equipment (PPE) This may decrease voice recognition accuracy Inadvertent system archive analyst errors may occur. Plan: * Treatment: * Images: Billing Information: * Visit Code:?? * Procedure Codes:?? * Sign off status: Pending * Provider:??SID REYES NP Date:??01/2024 History and Physical Notes * HPI (History of Present Illness) Category Sub-Category Detail Notes Category Not es Constitutional Patient here today for a weight management f/u visit Patient seen and examined. Full past medical history, social history, family history, allergies and current medications were reviewed and updated. Body composition analysis reviewed today, as expected increased BMI, visceral adiposity, fat mass index, waist cirumference Good skeletal mass composition, Good water composition Caloric energy expenditure discussed #Weight Management 03/18/2024 Currently getting Xolair injections every 2 weeks for her asthma She has come off of steroids which is great news We have been able to get her off of insulin entirely Her A1c has decreased and she is happy with this. Her it programmer is happy with her progress and our management and reports stability in her overall health. A1c is improved to 7 and per last visit with PCP. Current diabetic regimen jardiance 25 mg, mounjaro 12.5mg, 1000mg BID Metformin Her sugars are significantly improved on the Dual incretin, SGLT and metformin 03/18/2024, Weight , BMI 01/29/2024, Weight 231lbs , BMI (+6lbs) 12/07/2023, Weight 225lb , BMI 36 08/14/2023: Weight 226 , BMI 36.27 (-5 lbs) 05/14/2023: Weight 231lbs, BMI 38, (-9lbs) 03/16/2023: Weight 240lbs, BMI 01/12/2023: Weight 258lbs, BMI 42 (+7lbs) 11/27/2022: Weight 251lbs, BMI 41, (-4lbs) 10/03/2022: Weight 255lbs BMI 41 08/22/2022: Weight 253lbs, BMI 41(-5lbs) 07/23/2022: Weight 258 lbs, BMI 42: Patient referred to us from PCP Manda 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 Metabolic workup: Thyroid WNL Diabetes, type 2 Diet: grab and go, works 3 jobs Exercise: Currently not tracking steps daily. Non-smoker. ETOH use: Examination Category Sub-Category Detail Notes Category Not es General Examination GENERAL APPEARANCE: in no ac neil distress, well developed, well nourished HEAD: normocephalic, atrau matic EYES: pupils equal, round, reactive to light and accommodation EARS: normal THROAT: clear NECK/THYROID: neck supple, full ra nge of motion, no cervical lymphadenopathy HEART: no murmurs, regular rate and rhythm, S1, S2 normal LUNGS: clear to auscultatio n bilaterally ABDOMEN: normal, bowel sounds present, soft, nontender, nondistended NEUROLOGIC: nonfocal, motor stre ngth normal upper and lower extremities, sensory exam intact SKIN: no suspicious lesion s, warm and dry EXTREMITIES: no clubbing, cyanosi s, or edema ORAL CAVITY: mucosa moist
--- OUTSIDE RECORDS SUMMARY | 2024-12-25 14:55 | XMS_ITS ---
Author Organization [employer] [facility] Address [address] [place] [address] Care Team Providers Care Applications Programmer Analyst Name Role Phone LEONARDO AMARAL, [facility] Primary Care Provider Opal Monroe [phone] REASON FOR VISIT No showed for March 2024 visit but yellow sheet completed Encounters Encounter Location Date Provider Diagnosis [facility] [employer] [address] [place] [address] 06/12/2024 Opal Aguirre Plan Of Treatment Next Appt Details Provider Name:Opal story, 06/27/2025 09:40:00 AM, [address] [facility], [address], [place], [address], Progress Notes * PATRICK DILLONSDOB: [birth year] (48 yo F)Acc No.[id number]:06/12/2024 Patient:?YESSENIA DILLON :1975???Age:48 Y???Sex:Female Address:[address] [place] [address], [place], [address] * true * Date:? Generated for Jcralosi bharath/Christina/eTransmitting on:?12/25/2024 02:55 PM EST
--- OUTSIDE RECORDS SUMMARY | 2024-12-25 14:55 | XMS_ITS | Patient Health Record ---
Author Organization [facility] Address [address] [place] [address] Care Team Providers Care Passenger Barge Master Name Role Phone SID REYES Unavailable [phone] ALLERGIES No Known Allergies REASON FOR REFERRAL No Information MEDICATIONS Medication SIG (Take, Route, Frequency, Duration) Notes Start Date End Date Status Amitriptyline HCl 25 MG Oral for 90 Active Jardiance 25 MG 1 tablet Orally Once a day for 90 days Active Januvia 100 MG Oral for 30 Act cisco Mounjaro 15 MG/0.5ML 15mg Subcutaneous w eekly for 30 days 01/29/2024 Active Mounjaro 15 MG/0.5ML 15mg Subcutaneous w eekly for 30 days 05/15/2023 Active Breo Ellipta 200-25 MCG/INH Inhalation for 30 Active Rosuvastatin Calcium 40 MG Oral for 90 Active HumaLOG 100 UNIT/ML Injection for 90 Active Omnipod DASH Pods (Gen 4) - for 30 Active metFORMIN HCl 1000 MG TAKE 1 TABLET BY M OUTH TWICE A DAY WITH A MEAL FOR 90 DAYS for 90 Active amLODIPine Besylate 10 MG Oral for 90 Active Telmisartan-HCTZ 80-25 MG Oral for 90 Active Naproxen 500 MG Oral for 30 Ac tive Qjjojqiktl-ZMYO-Vrvfixhj 50-300-40 MG Oral for 3 Active Dexcom G6 Sensor - for 30 A ctive Dexcom G6 Transmitter - for 90 Active Flovent HFA 220 MCG/ACT Inhalation for 30 Active Montelukast Sodium 10 MG Oral for 90 Active Mounjaro 12.5 MG/0.5ML 12.5mg Subcutaneo us weekly for 30 days Active SOCIAL HISTORY Tobacco Use: Social History Observation Description Date Details (start date - stop date) Never Smoker NA - NA Sex Assigned At : Social History Observation Description Sex Assigned At Unknown Tobacco Use/Smoking Question Answer Notes Are you a nonsmoker Alcohol Screen (Audit-C) Question Answer Notes Did you have a drink containing alcohol in the p ast year? No Points 0 Interpretation Negative PROBLEMS Problem Type ICD Code Onset Dates Problem Status W/U Status Risk SNOMED Code Notes Problem Type 2 diabetes mellitus without complications (E11.9) Active confirmed 450248627 Problem Morbid (severe) obes ity due to excess calories (E66.01) Active confirmed 533613947 Problem Other obesity due to excess calories (E66.09) Active confirmed 295975334 Problem Essential (primary) hypertension (I10) Active confirmed 07118762 Problem assisted (current) use of insulin (Z79.4) Active confirmed 206821282 Problem Pure hypercholesterolemia (E78.00) Active confirmed 737593190 Problem BMI 40.0-44.9, adult (Z68.41) Active confirmed 492139681 Problem Body mass index [BMI ] 38.0-38.9, adult (Z68.38) Active confirmed 267968663 VITAL SIGNS Heart Rate 87 /min 01/29/2024 Oximetry 98 % 01/29/2024 Blood pressure diastolic 82 mm Hg 01/29/2024 Height 66 in 01/29/2024 Blood pressure systolic 132 mm Hg 01/29/2024 Weight 231 lbs 01/29/2024 BMI 37.28 kg/m2 01/29/2024 Encounters Encounter Location Date Provider Diagnosis [place] [address] [address] 03/18/2024 SID BORHOT Essential (primary) hypertension I10 ; Pure hypercholesterolemia E78.00 ; Type 2 diabetes mellitus without complications E11.9 ; Other obesity due to excess calories E66.09 and Body mass index [BMI] 38.0-38.9, adult Z68.38 [place] [address] [address] 04/08/2024 SID BORHOT Essential (primary) hypertension I10 ; Pure hypercholesterolemia E78.00 ; Type 2 diabetes mellitus without complications E11.9 ; Other obesity due to excess calories E66.09 ; Body mass index [BMI] 38.0-38.9, adult Z68.38 and Dietary counseling and surveillance Z71.3 [facility] [address] [facility] [address] [place] [address] 01/29/2024 SID REYES Essential (primary) hypertension I10 ; Pure hypercholesterolemia E78.00 ; Type 2 diabetes mellitus without complications E11.9 ; Other obesity due to excess calories E66.09 and Body mass index [BMI] 38.0-38.9, adult Z68.38 [address] [facility] [address] [place] [address] 04/07/2024 SID REYES ASSESSMENTS Encounter Date Diagnosis Assessment Notes Treatment Notes Treatment Clinical Notes Section Notes 01/29/2024 Essential (primary) hypertension (ICD-10 - I10) #Weight Management 01/29/2024 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 Consider using apps like [employer], [employer], lose it, stick as needed for self-monitoring and weight management. Consider group exercises. Consider hiring a personal protection specialist. Regular exercise is uribe to sustainable health [...] counseling and psychiatry and Dr Vallecillo at [facility]. 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 Consider using apps like [employer], myfit[employer]pal, lose it, stick as needed for self-monitoring and weight management. Consider group exercises. Consider hiring a personal protection specialist. Regular exercise is uribe to sustainable health [...] counseling and psychiatry and Dr Vallecillo at [facility]. 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 Consider using apps like [employer], [employer], lose it, stick as needed for self-monitoring and weight management. Consider group exercises. Consider hiring a personal protection specialist. Regular exercise is uribe to sustainable health [...] counseling and psychiatry and Dr Vallecillo at [facility]. 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 Consider using apps like [employer], [employer], lose it, stick as needed for self-monitoring and weight management. Consider group exercises. Consider hiring a personal protection specialist. Regular exercise is uribe to sustainable health [...] counseling and psychiatry and Dr Vallecillo at [facility]. 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 Consider using apps like [employer], [employer], lose it, stick as needed for self-monitoring and weight management. Consider group exercises. Consider hiring a personal protection specialist. Regular exercise is uribe to sustainable health [...] counseling and psychiatry and Dr Vallecillo at [facility]. 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 Consider using apps like [employer], myfitnesspal, lose it, stick as needed for self-monitoring and weight management. Consider group exercises. Consider hiring a personal protection specialist. Regular exercise is uribe to sustainable health [...] counseling and psychiatry and Dr Vallecillo at [facility]. 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 Consider using apps like [employer], myfitnesspal, lose it, stick as needed for self-monitoring and weight management. Consider group exercises. Consider hiring a personal protection specialist. Regular exercise is uribe to sustainable health [...] counseling and psychiatry and Dr Vallecillo at [facility]. 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 Consider using apps like [employer], [employer], lose it, stick as needed for self-monitoring and weight management. Consider group exercises. Consider hiring a personal protection specialist. Regular exercise is uribe to sustainable health [...] counseling and psychiatry and Dr Vallecillo at [facility]. 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 Consider using apps like [employer], [employer], lose it, stick as needed for self-monitoring and weight management. Consider group exercises. Consider hiring a personal protection specialist. Regular exercise is uribe to sustainable health [...] counseling and psychiatry and Dr Vallecillo at [facility]. 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 Consider using apps like [employer], [employer], lose it, stick as needed for self-monitoring and weight management. Consider group exercises. Consider hiring a personal protection specialist. Regular exercise is uribe to sustainable health [...] counseling and psychiatry and Dr Vallecillo at [facility]. 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 Consider using apps like [employer], [employer], lose it, stick as needed for self-monitoring and weight management. Consider group exercises. Consider hiring a personal protection specialist. Regular exercise is uribe to sustainable health [...] counseling and psychiatry and Dr Vallecillo at [facility]. 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 Consider using apps like [employer], [employer]pal, lose it, stick as needed for self-monitoring and weight management. Consider group exercises. Consider hiring a personal protection specialist. Regular exercise is uribe to sustainable health [...] counseling and psychiatry and Dr Vallecillo at [facility]. 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 Consider using apps like [employer], [employer], lose it, stick as needed for self-monitoring and weight management. Consider group exercises. Consider hiring a personal protection specialist. Regular exercise is uribe to sustainable health [...] counseling and psychiatry and Dr Vallecillo at [facility]. 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 Consider using apps like [employer], [employer], lose it, stick as needed for self-monitoring and weight management. Consider group exercises. Consider hiring a personal protection specialist. Regular exercise is uribe to sustainable health [...] counseling and psychiatry and Dr Vallecillo at [facility]. 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 Consider using apps like [employer], [employer], lose it, stick as needed for self-monitoring and weight management. Consider group exercises. Consider hiring a personal protection specialist. Regular exercise is uribe to sustainable health [...] counseling and psychiatry and Dr Vallecillo at [facility]. 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 Consider using apps like [employer], myfitnesspal, lose it, stick as needed for self-monitoring and weight management. Consider group exercises. Consider hiring a personal protection specialist. Regular exercise is uribe to sustainable health [...] counseling and psychiatry and Dr Vallecillo at [facility]. We would like to cover regular topics [...] software and direct typing Please excuse inadvertent rehab liaison or typing errors, or uncorrected word substitutions Although every attempt has been made by the provider to proofread this document, occasional misspellings and typographical errors may still be present Due to the previous pandemic, and the use of personal protective equipment (PPE) This may decrease voice recognition accuracy Inadvertent rehab liaison errors may occur PLAN OF TREATMENT No Information Insurance Providers Payer Name Payer Address Payer Phone Subscriber Number Group Number Insured Name Patient Relationship to Insured Coverage Start Date Coverage End Date [employer] [address] [address] [place] [address] [id number] Vonnie Sorto Self - patient is the insured MEDICAL (GENERAL) HISTORY Medical History History ICD Code hypertension type II diabetes hyperlipidemia asthma headache anxiety Hospitalization History Reason Date(Month/Year) asthma 07/19/2022
--- OUTSIDE RECORDS SUMMARY | 2024-12-25 14:55 | XMS_ITS | Patient Health Record ---
Author Organization [employer] [facility] Address [address] [place] [address] Care Team Providers Care Head Waiter/Waitress Name Role Phone LEONARDO AMARAL, JOSEF Primary Care Provider Opal Monroe Unavailable [phone] Allergies Allergen (clinical drug ingredient) Drug/Non Drug Allergy documented on EMR Reaction Allergy Type Onset Date Status metformin Metformin HCl Diarrhea Drug Allergy Act cisco liraglutide Victoza Skin Rash Drug Allergy Activ e Lysteda Eye Redness Drug Allergy Activ e Results Component Value Reference Range Notes [id number] IGP No Culture 30 Plus Reviewed date:06/28/2024 06:57:35 PM Interpretation: Performing Lab:[facility] [place], [address], [address], [place], Phone - [phone], Director - [facility] Notes/Report: Clinical Information:[id number] LMP / Prev Treat...[id number] Dates / Results....03/19/23 NIL NEGHPV No. of containers..01 ThinPrep Vial DIAGNOSIS: NEGATIVE FOR IN TRAEPITHELIAL LESION OR MALIGNANCY. Specimen adequacy: Satisfactory for evaluation. Endocervical and/or squamous metaplastic cells (endocervical component) are present. Clinician provided ICD10: Z1 2.31 Performed by: Jose Kuhn , Hand Thermal Cutter (ASCP) . . Note: The Pap smear [...] Report Reviewed date:06/28/2024 06:57:46 PM Interpretation: Performing Lab:[facility] [place], [address], [address], [place], Phone - [phone], Director - [facility] Notes/Report: Clinical Information:[id number] LMP / Prev Treat...[id number] Dates / Results....03/19/23 NIL NEGHPV No. of containers..01 ThinPrep Vial Reason For Referral No Information Medications Medication SIG (Take, Route, Frequency, Duration) Notes Start Date End Date Status amLODIPine Besylate 10 MG TAKE 1 TABLET BY MOUTH EVERY DAY Oral for 90 Active Lantus 100 UNIT/ML as directed Subcutaneous Pt is on pump Active metFORMIN HCl ER 500 MG 1 tablet with evening meal Orally Once a day Active Vitamin C Active Januvia 100 MG TAKE 1 TABLET BY IVELISSE TH EVERY DAY Oral for 30 Active Telmisartan-HCTZ 80-25 MG TAKE 1 TABLET BY MOUTH EVERY DAY Oral for 90 Active Rosuvastatin Calcium 40 MG TAKE 1 TABLET BY MOUTH EVERYDAY AT BEDTIME Oral for 90 Active CeleXA 20 MG 1 tablet Orally Once a day Active Vitamin D 1000 UNIT 1 tablet [...] Sexually transmitted disease ? Yes Chlamydia? Yes Problems Problem Type SNOMED Code ICD Code Onset Dates Problem Status W/U Status Risk Notes Problem Human papilloma virus deoxyribonucleic acid test positive, high risk on vaginal specimen (044456253254194) Cervical high risk human papillomavirus (HPV) DNA test positive (R87.810) Active confirmed Problem Vitamin D deficiency (90633027) Vitamin D deficiency, unspecified (E55.9) Active confirmed Problem Moderate cervical dysplasia (129180215) Moderate cervical dysplasia (N87.1) Active confirmed Problem Morbid obesity (disorder) (393870143) Morbid (severe) obesity due to excess calories (E66.01) Active confirmed Problem Amenorrhea (56652075) Amenorrhea, unspecified (N91.2) Active confirmed Problem Oligomenorrhea (08612999) Oligomenorrhea, unspecified (N91.5) Active confirmed Problem Abnormal vaginal bleeding (672990542) Other specified abnormal uterine and vaginal bleeding (N93.8) Active confirmed Problem Functional urinary incontinence (219857425) Functional urinary incontinence (R39.81) Active confirmed Problem History of dysplasia of cervix (112940416) Personal history of cervical dysplasia (Z87.410) Active confirmed Problem Type II diabetes mellitus without complication (860915600) Diabetes mellitus without mention of complication, type II or unspecified type, not stated as uncontrolled (250.00) Active confirmed Major Problem Benign essential hypertension (2135090) Essential hypertension, benign (401.1) Active confirmed Major Problem Vulvovaginitis (disorder) (21616073) Unspecified vaginitis and vulvovaginitis (616.10) Active confirmed Diag Problem Asthma (disorder) (942392873) Asthma, unspecified, unspecified status (493.90) Active confirmed Major Problem Absence of menstruation (89690823) Absence of menstruation (626.0) Active confirmed Diag Problem Gynecological examination normal (191664189250930) Routine gynecological examination (V72.31) Active confirmed Major Vital Signs Temperature 98.0 degrees Fahrenheit 06/23/2024 Blood pressure diastolic 82 mm Hg 06/23/2024 Height 66.25 in 06/23/2024 Blood pressure systolic 122 mm Hg 06/23/2024 Weight 226 lbs 06/23/2024 BMI 36.2 kg/m2 06/23/2024 Encounters Encounter Location Date Provider Diagnosis [facility] [address] [place] [address] 03/22/2024 Opal Aguirre [facility] [address] [place] [address] 06/23/2024 Opal Aguirre Encounter for gynecological examination (general) (routine) without abnormal findings Z01.419 ; Encounter for screening mammogram for malignant neoplasm of breast Z12.31 ; Encounter for routine checking of intrauterine contraceptive device Z30.431 and Personal history of cervical dysplasia Z87.[address] [place] [address] 06/12/2024 Opal Aguirre Assessments Encounter Date Diagnosis (ICD Code) Assessment [...] TYPING WAS OBTAINED TODAY. Plan Of Treatment Pending Test Test Name Order Date Urinalysis, Complete 11/01/2021 Urinalysis, Complete 11/05/2021 Test, Urine 12/09/2019 Urine Culture and Sensitivity 11/05/2021 Urine Culture and Sensitivity 11/01/2021 Urinalysis 12/09/2019 Urinalysis 04/12/2021 Urinalysis 12/03/2018 1,25OH VITAMIN D 10/18/2019 25OH VITAMIN D 01/08/2018 25OH VITAMIN D 10/03/2019 25OH VITAMIN D 12/01/2017 COMPLETE BLOOD COUNT 06/13/2021 COMPLETE BLOOD COUNT 06/21/2021 COMPLETE CBC WITH DIFF 10/02/2017 COMPLETE CBC WITH DIFF 10/16/2017 COMPLETE URINALYSIS 05/23/2021 COMPLETE URINALYSIS 10/03/2019 COMPLETE URINALYSIS 12/09/2019 COMPLETE URINALYSIS 10/06/2019 DHEA SULFATE 01/08/2018 DHEA SULFATE 10/03/2019 ESTRADIOL 10/03/2019 ESTRADIOL 12/01/2017 ESTRADIOL 06/21/2021 FSH 06/21/2021 FSH 12/01/2017 FSH 10/03/2019 HCG PLUS BETA 10/03/2019 HCG PLUS BETA 12/01/2017 LH 12/01/2017 LH 10/03/2019 LH 06/21/2021 PROLACTIN 12/01/2017 SURGICAL PATHOLOGY 06/13/2021 TESTOSTERONE 10/03/2019 TESTOSTERONE 01/08/2018 TSH 12/01/2017 URINE 12/27/2019 URINE CULTURE 12/09/2019 URINE CULTURE 05/23/2021 URINE CULTURE 10/03/2019 URINE CULTURE 10/06/2019 MM Digital Mammo Screening 03/19/2023 MM Digital Mammo Screening 06/23/2024 MM Digital Mammo Screening 12/03/2018 MM Digital Mammo Screening 04/12/2021 PELVIC ULTRASOUND W/TRANSVAGINAL 021 Next Appt Details Provider Name:Opal Mejia jez, 06/27/2025 09:40:00 AM, [address], [address], [place], [address], Insurance Providers Payer Name Payer Address Payer Phone Subscriber Number Group Number Insured Name Patient Relationship to Insured Coverage Start Date Coverage End Date [employer] [place] [address] [address] [place] [address] [id number] YESSENIA DILLON Self - patient is the insured Medical (General) History Medical History History ICD Code Other asthma J45.998 Type 2 diabetes mellitus without complic ations E11.9 Essential (primary) hypertension I10 Morbid (severe) obesity due to excess ca lories E66.01 Pelvic Pain R10.2 Acute inflammatory disease of uterus N71 .0 Epidermal cyst L72.0 Amenorrhea, unspecified N91.2 Vitamin D deficiency, unspecified E55.9 Oligomenorrhea, unspecified N91.5 Morbid (severe) obesity due to excess ca lories E66.01 Other microscopic hematuria R31.29 Moderate cervical dysplasia N87.1 Functional urinary incontinence R39.81 Cervical high risk human papillomavirus (HPV) DNA test positive R87.810 Other specified abnormal uterine and vag inal bleeding N93.8 Amenorrhea, unspecified N91.2 Acute inflammatory disease of uterus N71 .0 Atypical squamous cells miguelina ot exclude high grade squamous intraepithelial lesion on cytologic smear of cervix (ASC-H) R87.611 Surgical History Surgery Date(Month/Year) Ectopic 1999 Hospitalization History Reason Date(Month/Year) [facility] Vaginal Deliveries See Siurgical Hx
[2024-12-25 15:02] LABS: MANUAL DIFF FLAG NO
[2024-12-25 15:03] LABS: Basophils Absolute Auto 0.1 X10*3/uL (0.0-0.2); Basophils Percent Auto 0.5 % (0-2); Eosinophils Absolute Auto 0.1 X10*3/uL (0.0-0.4); Eosinophils Percent Auto 1.4 % (0-4); Hematocrit 45.7 % (37.0-47.0); Hemoglobin 15.5 g/dl (12.0-16.0); Imm Gran Abs Auto 0.02 X10*3/uL (0.00-0.03); Imm Gran Pct Auto 0.2 % (0.0-0.4); Lymphocytes Absolute Auto 2.1 X10*3/uL (1.2-4.9); Lymphocytes Percent Auto 22.1 % (20-40); Mean Corpuscular HGB Conc 33.9 g/dl (31.0-35.0); Mean Corpuscular Hemoglobin 27.5 pg (27.0-33.0); Mean Corpuscular Volume 81.2 fL (80.0-98.0); Mean Platelet Volume 9.8 fL (9.4-12.3); Monocytes Absolute Auto 0.4 X10*3/uL (0.1-1.2); Monocytes Percent Auto 4.8 % (2-11); Neutrophils Absolute Auto 6.6 x10*3/uL (2.0-8.3); Platelet Count 262 X10*3/uL (160-400); Red Blood Count 5.63 X10*6/uL (4.20-5.50); Red Cell Distribution Width 12.7 % (11.0-16.0); White Blood Count 9.3 X10*3/uL (4.8-10.8)
[2024-12-25 15:06] LABS: Appearance Urine Clear; Color Urine Yellow; Glucose Urine UA 500 mg/dL (Negative); Leukocyte Esterase Urine Negative (Negative); Nitrite Urine Negative (Negative); PH 7.5 (5.0-9.0); Urine Blood Negative (Negative); Urine Ketones Negative (Negative); Urine Protein Negative (Neg-Trace)
[2024-12-25 15:09] LABS: Prothrombin Time 11.2 SEC (10.9-12.4)
[2024-12-25 15:12] LABS: VBG Base Excess 3.6 mmol/L; VBG HCO3 28 mmol/L (22-26); VBG pCO2 41 mmHg; VBG pH 7.43 (7.32-7.43); VBG pO2 88 mmHg
[2024-12-25 15:25] LABS: Alanine Aminotransferase 45 U/L (0-31); Albumin Level 4.2 g/dL (3.5-5.0); Anion Gap 14 (12-20); Aspartate Amino Transferase 26 U/L (5-31); Beta-Hydroxybutyrate 0.19 mmol/L (0.02-0.27); Bilirubin Total 1.5 mg/dL (0.0-1.0); Blood Urea Nitrogen 6 mg/dL (9-16); Calcium 9.4 mg/dL (8.4-10.2); Carbon Dioxide 25 mmol/L (22-29); Chloride 101 mmol/L (96-108); Creatinine Clr Calc Pharmacy 127.8; Estimated Glomerular Filt Rate > 60; Glucose Random 258 mg/dL (60-115); Lipase 19 U/L (8-78); Magnesium 1.9 mg/dL (1.6-2.6); Potassium 3.3 mmol/L (3.3-5.1); Sodium 137 mmol/L (135-145); Total Protein 7.8 g/dL (6.5-8.0)
[2024-12-25 15:41] LABS: Influenza A PCR NEGATIVE (Negative); Influenza B PCR NEGATIVE (Negative); Resp Syncy Virus RNA Qual PCR NEGATIVE (Negative); SARS COV2 PCR INHOUSE NEGATIVE (Negative)
[2024-12-25 15:42] LABS: Troponin-I High Sensitivity < 2.7 ng/L (<3.5-17.0)
[2024-12-25 15:50] LABS: Venous Blood Gas Refer to POC result
[2024-12-25 15:53] LABS: B Type Natriuretic Peptide 27 pg/mL (<100)
[2024-12-25 16:14] LABS: Alkaline Phosphatase 108 U/L (39-117)
[2024-12-25] MEDS: 0.9 % Sodium Chloride 1,000 ML 999 ML IVCONT (17:23)
[2024-12-25] MEDS: Ketorolac Tromethamine 30 MG/ML VIAL IVPUSH (17:31)
[2024-12-25] MEDS: Metoclopramide HCl 10 MG/2 ML VIAL IVPUSH (17:32)
[2024-12-25] MEDS: iohexoL 350 MG/ML 100 ML INFUS..BTL 85 ML IV (18:26)
[2024-12-25 20:00] VITALS: BP 141/86; PULSE 98; RESP 18; TEMP 36.6; O2SAT 98
[2024-12-25 20:11] VITALS: BP 141/86; PULSE 98; RESP 18; TEMP 36.6; O2SAT 98
== END 2024-12-25 20:12 | disposition home or self-care (01) ==
PROVIDERS: Nurse Practitioner Family; Emergency Provider Emergency Medicine; PCP Internal Medicine
DX: N23 Unspecified renal colic (principal); M94.0 Chondrocostal junction syndrome [Tietze]; R51.9 Headache, unspecified; R07.81 Pleurodynia; R07.89 Other chest pain; R06.02 Shortness of breath; E11.9 Type 2 diabetes mellitus without complications; Z79.899 Other long term (current) drug therapy; Z79.4 Long term (current) use of insulin; Z03.818 Encounter for observation for suspected exposure to other biological agents ruled out
CPT/HCPCS: 0241U; 36415; 71101; 74177; 80053; 81003; 82010; 82803; 83690; 83735; 83880; 84484; 85025; 85610; 93005; 96361; 96374; 96375; 99284; 99285; J1885; J2765; Q9967

== ENCOUNTER → 2024-12-25 14:31 | Outpatient (BNV) | payer OTHER, SELFPAY | PROVIDERS: PCP Internal Medicine; Visit Provider Radiology Diagnostic Radiology | DX: R10.11 Right upper quadrant pain (principal); R07.89 Other chest pain | CPT/HCPCS: 71101; 74177 ==

== ENCOUNTER → 2024-12-25 14:31 | Outpatient (BNV) | payer OTHER, SELFPAY | PROVIDERS: Emergency Provider Emergency Medicine; PCP Internal Medicine; Visit Provider Internal Medicine Cardiovascular Disease | DX: R07.9 Chest pain, unspecified (principal) | CPT/HCPCS: 93010 ==

== ENCOUNTER 2024-12-30 14:53 | Outpatient (AMB) | payer OTHER, SELFPAY ==
[2024-12-30 14:55] VITALS: BP 130/80; PULSE 83; O2SAT 97; BMI 36.5
--- NOTE | 2024-12-30 14:55 | MHC.OFFVIS ---
Vital Signs 12/30/24 14:55 Height 5 ft 7 in Weight 233 lb BMI 36.5 BP 130/80 Blood Pressure Location Rt brachial Position Sitting Pulse 83 Pulse Source Doppler Pulse Oximetry (%) 97 Oxygen Delivery Method Room Air Intake Visit Reasons: asthma Allergies metronidazole [From Flagyl] Allergy (Severe, Verified 12/30/24 15:02) Anaphylaxis canagliflozin [Invokana] Allergy (Unknown, Verified 12/30/24 15:02) rash liraglutide Allergy (Unknown, Verified 12/30/24 15:02) rash animals Allergy (Unknown, Uncoded 12/25/24 14:31) rash Pt states no known food allerg Allergy (Unknown, Uncoded 12/25/24 14:31) Unknown HPI HPI asthma: Details: 49-year-old lady, nonsmoker, followed for underlying moderate to severe persistent asthma significant allergic component. After the last office visit she was restarted on Xolair and now continues on Xolair, Trelegy, and albuterol MDI with excellent control of her symptoms.? She denies recent acute exacerbations. 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 Diabetes type 2, uncontrolled Ectopic Hyperlipidemia Hypertension Asthma Surgical History History of esophagogastroduodenoscopy (EGD) Hx of colonoscopy History of surgical procedure on mouth Hx of ectopic Family History Father Diabetes mellitus Stomach cancer Mother Diabetes mellitus Ovarian cancer Paternal Grandfather Colon cancer Paternal Aunt Liver cancer Paternal Aunt Liver cancer Social History Household Members: Family Housing: House Do you presently have visiting nurse or other home services: No Alcohol intake: never Patient Tobacco Use Status: Never used Tobacco Advance Directives Date on File: 07/15/22 service: No Current occupational status: employed Review of Systems Const Denies daytime sleepiness, Denies excessive sweating, Denies fatigue, Denies fever(s), Denies lethargy, Denies malaise, Denies night sweats, Denies snoring and Denies weight loss Eyes Denies blurry vision and Denies itchy eyes ENT Denies nasal congestion, Denies post nasal drip, Denies sinus pain, Denies sinus pressure and Denies other ( Thrush) Card Denies chest pain, Denies pedal edema, Denies dyspnea, Denies orthopnea and Denies paroxysmal nocturnal dyspnea Resp Denies cough, Denies hemoptysis, Denies excessive phlegm production, Denies dyspnea, Denies snoring and Denies wheezing GI Denies abdominal pain and Denies heartburn Musc Denies myalgias, Denies arthralgias and Denies joint swelling Skin/Breast Denies rash Neuro Denies memory loss and Denies seizure-like activity Psych Denies abnormal sleep pattern, Denies anxiety and Denies memory loss Endo Denies excessive sweating, Denies fatigue and Denies heat intolerance Jeffrey/Lymph Denies easy bruising Aller/Immun Denies itchy eyes, Denies seasonal rhinorrhea and Denies wheezing Physical Exam Vital Signs: Last Vital Signs Pulse 83 12/30/24 14:55 BP 130/80 12/30/24 14:55 Pulse Ox 97 12/30/24 14:55 Oxygen Delivery Method Room Air 12/30/24 14:55 BMI result Body Mass Index 36.5 Const General: no acute distress and alert Nutritional Appearance: obese Orientation/consciousness: Other orientation findings ( oriented) HEENT Head: Yes atraumatic Eyes General: appearance normal, both eyes and all related structures Sclerae: sclerae normal EOM: EOMs intact bilaterally Neck Neck: Yes supple Lymphatic: no lymphadenopathy noted Resp Effort & Inspection: normal respiratory effort and no use of accessory muscles Auscultation: clear to auscultation bilaterally Cardio Rate: regular rate Rhythm: regular rhythm Heart sounds: no gallops, no murmurs and no rubs Skin General skin exam: other ( warm) Extrem General: No clubbing, No cyanosis and No edema Assessment & Plan Assessment & Plan (1) Severe persistent asthma: Code(s): J45.50 - Severe persistent asthma, uncomplicated Category: Medical Plan: Well controlled on current regimen of Xolair, Trelegy, and albuterol MDI/nebs. Continue current regimen. (2) Environmental allergies: Code(s): Z91.09 - Other allergy status, other than to drugs and biological substances Category: Medical Plan: Well controlled on Xolair. Continue current regimen. Coding Level of Care Code Est Pt Level 4 (01256) Diagnoses Severe persistent asthma J45.50 Environmental allergies Z91.09
--- OUTSIDE RECORDS SUMMARY | 2024-12-30 14:55 | XMS_ITS ---
Author Organization [email or web address] [facility] Address [address] [place] [address] Care Team Providers Care Sales Enablement Manager Name Role Phone SID REYES Unavailable [phone] MEDICATIONS Medication SIG (Take, Route, Fr equency, Duration) Notes Start Date End Date Status Mounjaro 12.5 MG/0.5ML 12.5mg Subcutaneo us weekly for 30 days Active Encounters Encounter Location Date Provider Diagnosis [place] [address] [address] 04/08/2024 SID REYES Essential (primary) hypertension I10 ; Pure hypercholesterolemia E78.00 ; Type 2 diabetes mellitus without complications E11.9 ; Other obesity due to excess calories E66.09 ; Body mass index [BMI] 38.0-38.9, adult Z68.38 and Dietary counseling and surveillance Z71.3 ASSESSMENTS Encounter Date Diagnosis Assessment Notes Treatment Notes Treatment Clinical Notes Section Notes 04/08/2024 Essential (primary) hypertension (ICD-10 - I10) #Weight Management 04/08/2024 Her deputy editor in chief is happy with her progress and our [...] minimum of 6 months The most recent [place] Association of clinical endocrinologists and [place] [employer] of endocrinology guidelines recommend patients who [...] track activity level. Consider using apps like [employer], myfitnesspal, lose it, stick as needed for self-monitoring and weight management. Consider group exercises. Consider hiring a celebrity chef entrepreneur media personality. Regular exercise is uribe to sustainable health [...] counseling and psychiatry and Dr Vallecillo at [facility]. We would like to cover regular topics [...] software and direct typing Please excuse inadvertent training development director or typing errors, or uncorrected word substitutions Although every attempt has been made by the provider to proofread this document, occasional misspellings and typographical errors may still be present Due to the previous pandemic, and the use of personal protective equipment (PPE) This may decrease voice recognition accuracy Inadvertent training development director errors may occur 04/08/2024 Pure hypercholesterolemia (ICD-10 - E78.00) #Weight Management 04/08/2024 Her deputy editor in chief is happy with her progress and our [...] minimum of 6 months The most recent [place] Association of clinical endocrinologists and [place] [employer] of endocrinology guidelines recommend patients who [...] management. Consider group exercises. Consider hiring a celebrity chef entrepreneur media personality. Regular exercise is uribe to sustainable health [...] counseling and psychiatry and Dr Vallecillo at [facility]. We would like to cover regular topics [...] software and direct typing Please excuse inadvertent training development director or typing errors, or uncorrected word substitutions Although every attempt has been made by the provider to proofread this document, occasional misspellings and typographical errors may still be present Due to the previous pandemic, and the use of personal protective equipment (PPE) This may decrease voice recognition accuracy Inadvertent training development director errors may occur 04/08/2024 Type 2 diabetes mellitus without complications (ICD-10 - E11.9) #Weight Management 04/08/2024 Her deputy editor in chief is happy with her progress and our [...] minimum of 6 months The most recent [place] [employer] of clinical endocrinologists and [place] [employer] of endocrinology guidelines recommend patients who [...] track activity level. Consider using apps like [employer], [employer]fitMindshapespal, lose it, stick as needed for self-monitoring and weight management. Consider group exercises. Consider hiring a celebrity chef entrepreneur media personality. Regular exercise is uribe to sustainable health [...] counseling and psychiatry and Dr Vallecillo at [facility]. We would like to cover regular topics [...] software and direct typing Please excuse inadvertent training development director or typing errors, or uncorrected word substitutions Although every attempt has been made by the provider to proofread this document, occasional misspellings and typographical errors may still be present Due to the previous pandemic, and the use of personal protective equipment (PPE) This may decrease voice recognition accuracy Inadvertent training development director errors may occur 04/08/2024 Other obesity due to excess calories (ICD-10 - E66.09) #Weight Management 04/08/2024 Her deputy editor in chief is happy with her progress and our [...] minimum of 6 months The most recent [place] Association of clinical endocrinologists and [place] [employer] of endocrinology guidelines recommend patients who [...] track activity level. Consider using apps like [employer], myfitMindshapespal, lose it, stick as needed for self-monitoring and weight management. Consider group exercises. Consider hiring a celebrity chef entrepreneur media personality. Regular exercise is uribe to sustainable health [...] counseling and psychiatry and Dr Vallecillo at [facility]. We would like to cover regular topics [...] software and direct typing Please excuse inadvertent training development director or typing errors, or uncorrected word substitutions Although every attempt has been made by the provider to proofread this document, occasional misspellings and typographical errors may still be present Due to the previous pandemic, and the use of personal protective equipment (PPE) This may decrease voice recognition accuracy Inadvertent training development director errors may occur 04/08/2024 Body mass index [BMI ] 38.0-38.9, adult (ICD-10 - Z68.38) #Weight Management 04/08/2024 Her deputy editor in chief is happy with her progress and our [...] minimum of 6 months The most recent [place] Association of clinical endocrinologists and [place] [employer] of endocrinology guidelines recommend patients who [...] track activity level. Consider using apps like [employer], [employer] Energyp[employer], lose it, stick as needed for self-monitoring and weight management. Consider group exercises. Consider hiring a celebrity chef entrepreneur media personality. Regular exercise is uribe to sustainable health [...] counseling and psychiatry and Dr Vallecillo at [facility]. We would like to cover regular topics [...] software and direct typing Please excuse inadvertent training development director or typing errors, or uncorrected word substitutions Although every attempt has been made by the provider to proofread this document, occasional misspellings and typographical errors may still be present Due to the previous pandemic, and the use of personal protective equipment (PPE) This may decrease voice recognition accuracy Inadvertent training development director errors may occur 04/08/2024 Dietary counseling a nd surveillance (ICD-10 - Z71.3) #Weight Management 04/08/2024 Her deputy editor in chief is happy with her progress and our [...] minimum of 6 months The most recent [place] Association of clinical endocrinologists and [place] [employer] of endocrinology guidelines recommend patients who [...] track activity level. Consider using apps like [employer], [employer] Energ[employer]al, lose it, stick as needed for self-monitoring and weight management. Consider group exercises. Consider hiring a celebrity chef entrepreneur media personality. Regular exercise is uribe to sustainable health [...] counseling and psychiatry and Dr Vallecillo at [facility]. We would like to cover regular topics [...] software and direct typing Please excuse inadvertent training development director or typing errors, or uncorrected word substitutions Although every attempt has been made by the provider to proofread this document, occasional misspellings and typographical errors may still be present Due to the previous pandemic, and the use of personal protective equipment (PPE) This may decrease voice recognition accuracy Inadvertent training development director errors may occur PLAN OF TREATMENT Medication Medication Name Sig Start Date Stop Date Notes Mounjaro 12.5 MG/0.5ML 12.5mg Subcutaneo us weekly for 30 days Progress Notes * Verito SORTOsDOB: 3 (49 yo F)Acc No.[id number]:04/08/2024 Patient:??Vonnie SORTO Provider:??SID REYES NP :1975?Age:48 Y?Sex:Fe male Date:04/08/2024 Address:[address] [place] [id number] Subjective: * Chief Complaints: * ? * HPI: ?Constitutional:? Patient here today for a weight management f/u visit ?Patient seen and examined. ? Full past medical history, social history, family history, ?allergies and current medications were reviewed and updated. ?Body composition analysis reviewed today, as expected increased BMI, ?visceral adiposity, fat mass index, waist cirumference ?Good skeletal mass composition, Good water composition ?Caloric energy expenditure discussed ?#Weight Management ?04/07/2024 ?Currently getting Xolair injections every 2 weeks for her asthma ?She has come off of steroids which is great news ?We have been able to get her off of insulin entirely ?Her A1c has decreased and she is happy with this. ?Her deputy editor in chief is happy with her progress and our management ?and reports stability in her overall health. ?A1c is improved to 7 and per last visit with PCP. ?Current diabetic regimen ?jardiance 25 mg, mounjaro 12.5mg, 1000mg BID Metformin ?Her sugars are significantly improved on the Dual incretin, SGLT and metformin ?04/08/2024, Weight , BMI ?01/29/2024, Weight 231lbs , [...] E66.09??5.??Body mass index [BMI] 38.0-38.9, adult - Z68.38??6.??Dietary counseling and surveillance - Z71.3?? #Weight Management 04/08/2024 Her deputy editor in chief is happy with her progress and our [...] minimum of 6 months The most recent [place] [employer] of clinical endocrinologists and [place] [employer] of endocrinology guidelines recommend patients who [...] track activity level. Consider using apps like [employer], [employer] Energypal, lose it, stick as needed for self-monitoring and weight management. Consider group exercises. Consider hiring a celebrity chef entrepreneur media personality. Regular exercise is uribe to sustainable health [...] counseling and psychiatry and Dr Vallecillo at [facility]. We would like to cover regular topics [...] software and direct typing Please excuse inadvertent training development director or typing errors, or uncorrected word substitutions Although every attempt has been made by the provider to proofread this document, occasional misspellings and typographical errors may still be present Due to the previous pandemic, and the use of personal protective equipment (PPE) This may decrease voice recognition accuracy Inadvertent training development director errors may occur. Plan: * Treatment: * Images: Billing Information: * Visit Code:?? * Procedure Codes:?? * Sign off status: Pending * Provider:??SID REYES NP Date:??03/17 History and Physical Notes * HPI (History [...] composition Caloric energy expenditure discussed #Weight Management 04/07/2024 Currently getting Xolair injections every 2 weeks for her asthma She has come off of steroids which is great news We have been able to get her off of insulin entirely Her A1c has decreased and she is happy with this. Her deputy editor in chief is happy with her progress and our management and reports stability in her overall health. A1c is improved to 7 and per last visit with PCP. Current diabetic regimen jardiance 25 mg, mounjaro 12.5mg, 1000mg BID Metformin Her sugars are significantly improved on the Dual incretin, SGLT and metformin 04/08/2024, Weight , BMI 01/29/2024, Weight 231lbs , [...]
--- OUTSIDE RECORDS SUMMARY | 2024-12-30 14:56 | XMS_ITS | Patient Health Record ---
Author Organization [email or web address] [facility] Address [address] [place] [address] Care Team Providers Care Production Line Welder Name Role Phone LEONARDO AMARAL, JOSEF Primary Care Provider Opal Monroe Unavailable [phone] Allergies Allergen (clinical drug ingredient) Drug/Non Drug Allergy documented on EMR Reaction Allergy Type Onset Date Status metformin Metformin HCl Diarrhea Drug Allergy Act cisco liraglutide Victoza Skin Rash Drug Allergy Activ e Lysteda Eye Redness Drug Allergy Activ e Results Component Value Reference Range Notes [id number] IGP No Culture 30 Plus Reviewed date:06/28/2024 06:57:35 PM Interpretation: Performing Lab:[facility] [place], [address], [address], [place], Phone - [phone], Director - [facility] Notes/Report: Clinical Information:[id number] LMP / Prev Treat...[id number] Dates / Results....03/19/23 NIL NEGHPV No. of containers..01 ThinPrep Vial DIAGNOSIS: NEGATIVE FOR IN TRAEPITHELIAL LESION OR MALIGNANCY. Specimen adequacy: Satisfactory for evaluation. Endocervical and/or squamous metaplastic cells (endocervical component) are present. Clinician provided ICD10: Z1 2.31 Performed by: Jose Kuhn , Clinical Laboratory Medical Director (ASCP) . . Note: The Pap smear [...] [address], [address], [place], Phone - [phone], Director - [facility] Notes/Report: Clinical Information:[id number] LMP / Prev Treat...[id number] Dates / Results....03/19/23 NIL NEGHPV No. of [...] test positive, high risk on vaginal specimen ([id number]) Cervical high risk human papillomavirus (HPV) DNA test positive (R87.810) Active confirmed Problem Vitamin D deficiency (94527904) Vitamin D deficiency, unspecified (E55.9) Active confirmed Problem Moderate cervical dysplasia (654689477) Moderate cervical dysplasia (N87.1) Active confirmed Problem Morbid obesity (disorder) (781623503) Morbid (severe) obesity due to excess calories (E66.01) Active confirmed Problem Amenorrhea (47810613) Amenorrhea, unspecified (N91.2) Active confirmed Problem Oligomenorrhea (07267644) Oligomenorrhea, unspecified (N91.5) Active confirmed Problem Abnormal vaginal bleeding (766863090) Other specified abnormal uterine and vaginal bleeding (N93.8) Active confirmed Problem Functional urinary incontinence (145620260) Functional urinary incontinence (R39.81) Active confirmed Problem History of dysplasia of cervix (152813942) Personal history of cervical dysplasia (Z87.410) Active confirmed Problem Type II diabetes mellitus without complication (706551951) Diabetes mellitus without mention of complication, type II or unspecified type, not stated as uncontrolled (250.00) Active confirmed Major Problem Benign essential hypertension (9203774) Essential hypertension, benign (401.1) Active confirmed Major Problem Vulvovaginitis (disorder) (34354745) Unspecified vaginitis and vulvovaginitis (616.10) Active confirmed Diag Problem Asthma (disorder) (311850779) Asthma, unspecified, unspecified status (493.90) Active confirmed Major Problem Absence of menstruation (60142071) Absence of menstruation (626.0) Active confirmed Diag Problem Gynecological examination normal (668822797736238) Routine gynecological examination (V72.31) Active confirmed Major Vital Signs Temperature 98.0 degrees Fahrenheit 06/23/2024 Blood pressure diastolic 82 mm Hg 06/23/2024 Height 66.25 in 06/23/2024 Blood pressure systolic 122 mm Hg 06/23/2024 Weight 226 lbs 06/23/2024 BMI 36.2 kg/m2 06/23/2024 Encounters Encounter Location Date Provider Diagnosis [place] [address] [place] [address] 03/22/2024 Opal Aguirre Total [address] [place] [address] 06/23/2024 Opal Aguirre Encounter for gynecological examination (general) (routine) without abnormal findings Z01.419 ; Encounter for screening mammogram for malignant neoplasm of breast Z12.31 ; Encounter for routine checking of intrauterine contraceptive device Z30.431 and Personal history of cervical dysplasia Z87.[address] [place] [address] 06/12/2024 Opal Aguirre Assessments Encounter Date Diagnosis [...] Test, Urine 12/09/2019 Urine Culture and Sensitivity 11/01/2021 Urine Culture and Sensitivity 11/05/2021 Urinalysis 12/09/2019 Urinalysis 04/12/2021 Urinalysis 12/03/2018 1,25OH VITAMIN D 10/18/2019 25OH VITAMIN D 01/08/2018 25OH VITAMIN D 10/03/2019 25OH VITAMIN D 12/01/2017 COMPLETE BLOOD COUNT 06/13/2021 COMPLETE BLOOD COUNT 06/21/2021 COMPLETE CBC WITH DIFF 10/16/2017 COMPLETE CBC WITH DIFF 10/02/2017 COMPLETE URINALYSIS 10/06/2019 COMPLETE URINALYSIS 05/23/2021 COMPLETE URINALYSIS 12/09/2019 COMPLETE URINALYSIS 10/03/2019 DHEA SULFATE 10/03/2019 DHEA SULFATE 01/08/2018 ESTRADIOL 06/21/2021 ESTRADIOL 10/03/2019 ESTRADIOL 12/01/2017 FSH 12/01/2017 FSH 10/03/2019 FSH 06/21/2021 HCG PLUS BETA 12/01/2017 HCG PLUS BETA 10/03/2019 LH 12/01/2017 LH 10/03/2019 LH 06/21/2021 PROLACTIN [...] Name:Opal Mejia jez, 06/27/2025 09:40:00 AM, [address], [address], [place], [address], Insurance Providers Payer Name Payer Address Payer Phone Subscriber Number Group Number Insured Name Patient Relationship to Insured Coverage Start Date Coverage End Date [employer] [place] [address] [address] [place] [phone] [id number] YESSENIA DILLON Self - patient is the [...]
--- OUTSIDE RECORDS SUMMARY | 2024-12-30 14:56 | XMS_ITS ---
Author Organization [employer] [facility] Address [address] [place] [address] Care Team Providers Care Magnetic Observer Name Role Phone SID REYES Unavailable [phone] REASON FOR VISIT appt/ cx Encounters Encounter Location Date Provider Diagnosis [address] [address] 04/07/2024 SID REYES PLAN OF TREATMENT No Information Progress Notes * Verito SORTOsDOB: 3 (48 yo F)Acc No.[id number]:04/07/2024 Patient:??Vonnie SORTO :1975?Age:48 Y?Sex:Fe male Address:[address] [place] [address] * true * Date:??
--- OUTSIDE RECORDS SUMMARY | 2024-12-30 14:56 | XMS_ITS ---
Author Organization [facility] [facility] Address [address] [place] [address] Care Team Providers Care Clerk Typist Name Role Phone LEONARDO AMARAL, [facility] Primary Care Provider Opal Monroe [phone] REASON FOR VISIT No showed for March 2024 visit but yellow sheet completed Encounters Encounter Location Date Provider Diagnosis [facility] Let[facility] Talk [address] [place] [address] 06/12/2024 Opal Aguirre Plan Of Treatment Next Appt Details Provider Name:Opal story, 06/27/2025 09:40:00 AM, [address], [address], [place], [address], Progress Notes * PATRICK DILLONSDOB: [birth year] (48 yo F)Acc No.[id number]:06/12/2024 Patient:?YESSENIA DILLON :1975???Age:48 Y???Sex:Female Address:[address] [place] [address], [place], [address] * true * Date:? Generated for Jcarlosi bharath/Christina/eTransmitting on:?12/30/2024 02:56 PM EST
--- OUTSIDE RECORDS SUMMARY | 2024-12-30 14:56 | XMS_ITS ---
Author Organization [facility] Address [address] [place] [address] Care Team Providers Care Box Shook Patcher Name Role Phone LEONARDO AMARAL, [facility] Primary Care Provider Opal Monroe Unavailable [phone] Allergies Allergen (clinical drug ingredient) Drug/Non Drug Allergy documented on EMR Reaction Allergy Type Onset Date Status metformin Metformin HCl Diarrhea Drug Allergy Act cisco liraglutide Victoza Skin Rash Drug Allergy Activ e Lysteda Eye Redness Drug Allergy Activ e Results Component Value Reference Range Notes [id number] IGP No Culture 30 Plus Reviewed date:06/28/2024 06:57:35 PM Interpretation: Performing Lab:[facility], [address], [address], [place], Phone - [phone], Director - [facility] Notes/Report: Clinical Information:[id number] LMP / Prev Treat...[id number]=[id number] Dates / Results....03/19/23 NIL NEGHPV No. of containers..01 ThinPrep Vial DIAGNOSIS: NEGATIVE FOR IN TRAEPITHELIAL LESION OR MALIGNANCY. Specimen adequacy: Satisfactory for evaluation. Endocervical and/or squamous metaplastic cells (endocervical component) are present. Clinician provided ICD10: Z1 2.31 Performed by: Jose Kuhn , Se[employer] Stayer (ASCP) . . Note: The Pap smear [...] [address], [address], [place], Phone - [phone], Director - [facility] Notes/Report: Clinical Information:[id number] LMP / Prev Treat...[id number]=[id number] Dates / Results....03/19/23 NIL NEGHPV No. of containers..01 ThinPrep Vial REASON FOR VISIT Annual COMMUNITY EDUCATION COORDINATOR Physical, Annual COMMUNITY EDUCATION COORDINATOR Physical 50-59* Medications Medication SIG (Take, Route, [...] 06/23/2024 Encounters Encounter Location Date Provider Diagnosis [address] [place] [address] 06/23/2024 Opal Aguirre Encounter for gynecological examination [...] Provider Name:Opal story, 06/27/2025 09:40:00 AM, [address], [address], [place], [address], Progress Notes * PATRICK DILLONSDOB: 3 (48 yo F)Acc No.[id number]:06/23/2024 PROGRESS NOTES Patient:?YESSENIA DILLON Appointment Provider:?Opal story M.D. :1975???Age:48 Y???Sex:Female D ate:06/23/2024 Address:[address] [place] [address], , [place] [id number] Pcp:JOSEF PATTERSON MD Subjective: * Chief Complaints: * ??? Annual COMMUNITY EDUCATION COORDINATOR PhysicalAnnua l COMMUNITY EDUCATION COORDINATOR Physical 50-59* * HPI: ???New/Follow-up Patient Consult:? [...] FULLY. HER LAST MAMMOGRAM WAS DONE AT [facility] IN FEBRUARY 2024.? WE DO NOT HAVE [...] adequate calcium via diet and supplementation ?Significant COMMUNITY EDUCATION COORDINATOR problems:?no significant chemist inorganic symptoms or problems * ROS:?general:?no?chest pain.?no?palpitations.?no?headache.?no?cough.?no?shortness of breath.?no?fever.?no?unexplained weight loss.?no?nausea/vomiting.?no?change in bowel movements.?no blood in stool.?no?genitourinary complaints.?no?skin complaints.? * Medical History:? * Analysis Consultant History:?/ Para?2/2.?Sexual activity?Not currently sexually active x1yr.?Last Pap Smear:?03/19/23 NIL, NEG HPV, 04/12/21 ASC-H, POS HRHPV, 12/01/17 NEG HRHPV, 02/04/13, neg.?Mammogram:?2022, 02/15/21 < 50% density, 01/2020, 11/17/18 < 50% density, Bilateral Mammo with f/u Lt Breast. repeat in 3-6 months [facility]. ordered by PCP.?Abnormal Pap Smear:?yes, 05/23/21 [place] FARAZ I, 04/24/21 [place] FARAZ II, positive HRHPV in 2006.?LMP and [...] m ammogram for malignant neoplasm of breast?LAB: [id number] IGP No Culture 30 Plus ?Imaging: MM [...] * Images: Billing Information: * Visit Code:? 09554 Preventive Care New Pt. Age 40-64. 36080 Preventive Care Est Pt. Age 40-64. * Procedure Codes:? * Sign off status: Completed true * Appointment Provider:?Opal Aguirre M.D. Date:?06/23/2024 Generated for Jaime sinha/Christina/Mirian on:?12/30/2024 02:55 PM EST History and Physical Notes * [...] FULLY. HER LAST MAMMOGRAM WAS DONE AT [facility] IN FEBRUARY 2024. WE DO NOT HAVE [...] ate calcium via diet and supplementation Significant COMMUNITY EDUCATION COORDINATOR problems:: n o significant chemist inorganic symptoms or problems Examination Category Sub-Category Detail [...]
--- OUTSIDE RECORDS SUMMARY | 2024-12-30 14:56 | XMS_ITS ---
Author Organization [facility] Address [address] [place] [address] [address] [place] [address] Care Team Providers Care Health Information Specialist Name Role Phone LEONARDO AMARAL, JOSEF Primary Care Provider Opal Monroe Unavailable [phone] Allergies Allergen (clinical drug ingredient) Drug/Non Drug Allergy documented on EMR Reaction Allergy Type Onset Date Status metformin Metformin HCl Diarrhea Drug Allergy Act cisco liraglutide Victoza Skin Rash Drug Allergy Activ e Lysteda Eye Redness Drug Allergy Activ e REASON FOR VISIT Annual (YELLOW FORM DONE) Encounters Encounter Location Date Provider Diagnosis [facility] [address] [place] [address] 03/22/2024 Opal Aguirre Plan Of Treatment Next Appt Details Provider Name:Opal story, 06/27/2025 09:40:00 AM, [address] [place] [address], [address], [place], [address], Progress Notes * PATRICK DILLONSDOB: [birth year] (49 yo F)Acc No.[id number]:03/22/2024 PROGRESS NOTES Patient:?YESSENIA DILLON Appointment Provider:?Opal story M.D. :1975???Age:48 Y???Sex:Female D ate:03/22/2024 Address:[address] [place] [address], [facility] Pcp:JOSEF PATTERSON MD Subjective: * Chief Complaints: [...] on cytologic smear of cervix (ASC-H). * Mill Recorder History:?/ Para?2/2.?Sexual activity?Not currently sexually active x1yr.?Last Pap Smear:?03/19/23 NIL, NEG HPV, 04/12/21 ASC-H, POS HRHPV, 12/01/17 NEG HRHPV, 02/04/13, neg.?Mammogram:?02/15/21 < 50% density, 01/2020, 11/17/18 < 50% density, Bilateral Mammo with f/u Lt Breast. repeat in 3-6 months [facility]. ordered by PCP.?Abnormal Pap Smear:?yes, 05/23/21 [place] FARAZ I, 04/24/21 [place] FARAZ II, positive HRHPV in 2006.?LMP and [...] Electronic signature of Aneudy Aguirre MD on 12/30/2024 at 02:56 PM EST Sign off status: Pending * Appointment Provider:?Opal Aguirre M.D. Date:?03/22/2024 Generated for Jaime sinha/Christina/Mirian on:?12/30/2024 02:56 PM EST
--- OUTSIDE RECORDS SUMMARY | 2024-12-30 14:56 | XMS_ITS ---
Author Organization [facility] Address [address] [place] [id number] Care Team Providers Care Art Consultant Name Role Phone MAYRASID CALLOWAY Unavailable [phone] REASON FOR VISIT Flu like symptoms unable to come in seeing her pcp MEDICATIONS Medication SIG (Take, Route, Fr equency, Duration) Notes Start Date End Date Status Mounjaro 12.5 MG/0.5ML 12.5mg Subcutaneo us weekly for 30 days Active Encounters Encounter Location Date Provider Diagnosis [facility] [address] [id number] 03/18/2024 SID REYES Essential (primary) hypertension I10 ; Pure hypercholesterolemia E78.00 ; Type 2 diabetes mellitus without complications E11.9 ; Other obesity due to excess calories E66.09 and Body mass index [BMI] 38.0-38.9, adult Z68.38 ASSESSMENTS Encounter Date Diagnosis Assessment Notes Treatment Notes Treatment Clinical Notes Section Notes 03/18/2024 Essential (primary) hypertension (ICD-10 - I10) #Weight Management 03/18/2024 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 Consider using apps like [employer] mionblue lake excercise, myfitnesspal, lose it, stick as needed for self-monitoring and weight management. Consider group exercises. Consider hiring a band straightener. Regular exercise is uribe to sustainable health [...] counseling and psychiatry and Dr Vallecillo at [facility]. We would like to cover regular topics [...] software and direct typing Please excuse inadvertent director of infection control or typing errors, or uncorrected word substitutions Although every attempt has been made by the provider to proofread this document, occasional misspellings and typographical errors may still be present Due to the previous pandemic, and the use of personal protective equipment (PPE) This may decrease voice recognition accuracy Inadvertent director of infection control errors may occur 03/18/2024 Pure hypercholesterolemia (ICD-10 - E78.00) #Weight Management 03/18/2024 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 Consider group exercises. Consider hiring a band straightener. Regular exercise is uribe to sustainable health [...] counseling and psychiatry and Dr Vallecillo at [facility]. We would like to cover regular topics [...] software and direct typing Please excuse inadvertent director of infection control or typing errors, or uncorrected word substitutions Although every attempt has been made by the provider to proofread this document, occasional misspellings and typographical errors may still be present Due to the previous pandemic, and the use of personal protective equipment (PPE) This may decrease voice recognition accuracy Inadvertent director of infection control errors may occur 03/18/2024 Type 2 diabetes mellitus without complications (ICD-10 - E11.9) #Weight Management 03/18/2024 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 Consider using apps like NEON Concierge, Lime Microsystemspal, lose it, stick as needed for self-monitoring and weight management. Consider group exercises. Consider hiring a band straightener. Regular exercise is uribe to sustainable health [...] counseling and psychiatry and Dr Vallecillo at [facility]. We would like to cover regular topics [...] software and direct typing Please excuse inadvertent director of infection control or typing errors, or uncorrected word substitutions Although every attempt has been made by the provider to proofread this document, occasional misspellings and typographical errors may still be present Due to the previous pandemic, and the use of personal protective equipment (PPE) This may decrease voice recognition accuracy Inadvertent director of infection control errors may occur 03/18/2024 Other obesity due to excess calories (ICD-10 - E66.09) #Weight Management 03/18/2024 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 Consider using apps like NEON Concierge, myfitScimetrikapal, lose it, stick as needed for self-monitoring and weight management. Consider group exercises. Consider hiring a band straightener. Regular exercise is uribe to sustainable health [...] counseling and psychiatry and Dr Vallecillo at [facility]. We would like to cover regular topics [...] software and direct typing Please excuse inadvertent director of infection control or typing errors, or uncorrected word substitutions Although every attempt has been made by the provider to proofread this document, occasional misspellings and typographical errors may still be present Due to the previous pandemic, and the use of personal protective equipment (PPE) This may decrease voice recognition accuracy Inadvertent director of infection control errors may occur 03/18/2024 Body mass index [BMI ] 38.0-38.9, adult (ICD-10 - Z68.38) #Weight Management 03/18/2024 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 Consider using apps like NEON Concierge, Lime Microsystemspal, lose it, stick as needed for self-monitoring and weight management. Consider group exercises. Consider hiring a band straightener. Regular exercise is uribe to sustainable health [...] counseling and psychiatry and Dr Vallecillo at [facility]. We would like to cover regular topics [...] software and direct typing Please excuse inadvertent director of infection control or typing errors, or uncorrected word substitutions Although every attempt has been made by the provider to proofread this document, occasional misspellings and typographical errors may still be present Due to the previous pandemic, and the use of personal protective equipment (PPE) This may decrease voice recognition accuracy Inadvertent director of infection control errors may occur PLAN OF TREATMENT Medication Medication Name Sig Start Date Stop Date Notes Mounjaro 12.5 MG/0.5ML 12.5mg Subcutaneo us weekly for 30 days Progress Notes * Verito SORTOsDOB: 3 (49 yo F)Acc No.[id number]:03/18/2024 Patient:??Vonnie SORTO Provider:??SID REYES NP :1975?Age:48 Y?Sex:Fe male Date:03/18/2024 Address:[address] [place], [place] [id number] Subjective: * Chief Complaints: * ?1. Flu [...] and she is happy with this. 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 Consider using apps like NEON Concierge, Lime Microsystemspal, lose it, stick as needed for self-monitoring and weight management. Consider group exercises. Consider hiring a band straightener. Regular exercise is uribe to sustainable health [...] counseling and psychiatry and Dr Vallecillo at [facility]. We would like to cover regular topics [...] software and direct typing Please excuse inadvertent director of infection control or typing errors, or uncorrected word substitutions Although every attempt has been made by the provider to proofread this document, occasional misspellings and typographical errors may still be present Due to the previous pandemic, and the use of personal protective equipment (PPE) This may decrease voice recognition accuracy Inadvertent director of infection control errors may occur. Plan: * Treatment: * [...] and she is happy with this. 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
== END 2024-12-30 15:14 | disposition home or self-care (01) ==
PROVIDERS: PCP Internal Medicine; Visit Provider Internal Medicine Pulmonary Disease
DX: J45.50 Severe persistent asthma, uncomplicated (principal); Z91.09 Other allergy status, other than to drugs and biological substances
CPT/HCPCS: 99214

== ENCOUNTER → 2024-12-30 14:53 | Outpatient (BNVA) | payer OTHER, SELFPAY | PROVIDERS: PCP Internal Medicine; Visit Provider Internal Medicine Pulmonary Disease ==

== ENCOUNTER 2025-01-16 08:42 | Outpatient (AMB) | payer OTHER, SELFPAY ==
--- NOTE | 2025-01-16 08:44 | MHC.OFFVIS ---
Vital Signs 01/16/25 08:46 Height 5 ft 7 in Weight 230 lb 13.184 oz BMI 36.1 BP 124/84 Blood Pressure Location Rt brachial Position Sitting Pulse 84 Pulse Source Pulse Oximeter Pulse Oximetry (%) 97 Oxygen Delivery Method Room Air Intake Visit Reasons: T2DM Intake Note: Patient present today for Type 2 Diabetes Mellitus Last Diabetic eye exam: 11/2024 Last Podiatry Visit: Doesn't have one Random Glucose: 184 mg/dl HgA1C: 11.1% Car Hopper Required: No Accompanied by: Self / Same As Patient Allergies metronidazole [From Flagyl] Allergy (Severe, Verified 01/16/25 08:51) Anaphylaxis canagliflozin [Invokana] Allergy (Unknown, Verified 01/16/25 08:51) rash liraglutide Allergy (Unknown, Verified 01/16/25 08:51) rash animals Allergy (Unknown, Uncoded 01/16/25 08:51) rash Pt states no known food allerg Allergy (Unknown, Uncoded 01/16/25 08:51) Unknown Medication List - Last Reconciled 01/16/25 by Beth Villalobos PA-C albuterol sulfate 90 mcg/actuation 2 puffs inhalation Q6H PRN albuterol sulfate 5 mg inhalation Q4H PRN albuterol sulfate 2.5 mg inhalation BID PRN amitriptyline 1 tab PO BEDTIME blood sugar diagnostic (FreeStyle Lite Strips) use daily As directed blood-glucose meter (FreeStyle Lite Meter kit) As directed blood-glucose sensor (DexAccuvant G7 Sensor device) As directed change every 10 days empagliflozin (Jardiance) 25 mg PO DAILY ergocalciferol (vitamin D2) 1,250 mcg PO WE@0900 insulin glargine (Lantus Solostar U-100 Insulin) 10 units subcut QPM ketorolac 10 mg PO Q8H PRN lancets (FreeStyle Lancets) 5x/day montelukast 10 mg PO BEDTIME nebulizers (Compact Compressor Nebulizer) As directed nebulizers (AeroEclipse II Nebulizer) As directed nystatin 600,000 units (6 mL) PO QID 10 days omalizumab (Xolair) 300 mg subcut Q2W 28 days omeprazole 40 mg PO DAILY@0630 pen needle, diabetic (Comfort EZ Pen [place]) As directed injects 4X/day pen needle, diabetic (BD Ultra-Fine Mini Pen Needle) use 4x a day As directed rosuvastatin 40 mg PO BEDTIME 90 days HPI HPI T2DM: Details: Patient is a 49-year-old female with a significant past medical history obesity, uncontrolled type 2 diabetes, hypertension, hyperlipidemia, asthma presenting today for a follow-up for diabetes. Endo: Her last A1c was 7.4 and today is 11.1. Her blood sugar in the office is 185. She is supposed to be on Mounjaro 12.5 mg weekly, Jardiance 25 mg daily, and lantus 25 units. -for the last 4 weeks she has been unable to get her Mounjaro. She states that she did take 1 prescription of the 12.5 and prior to that was on the 10 mg. She states that her insurance needs a prior Auth. We do not have anything from the pharmacy that indicated this. She states since being off of the Mounjaro her blood sugars have been very high. She has not restarted the Humalog or increased the Lantus. At our last visit we discontinued the Humalog because she was developing hypoglycemia and had been regularly on the Mounjaro. -does not tolerate metformin GI distress, trulicity caused diarrhea, victoza caused a rash and nausea She says that she has been trying to eat healthy and has had a lot of smoothies which she recently realize was high in sugar. She states that she has been drinking a lot of water and urinating more frequently because of the elevated blood sugars. No vision changes, headaches, chest pain or shortness on breath. Reviewed her dexcom- 88% very high, 12% high, 0% in range. 0% hypoglycemic events CV: Blood pressure today in the office is 124/84. Cholesterol is managed with rosuvastatin 40 mg. Reports that there were some compliance issues. Last LDL elevated above goal. No myalgias. 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 Diabetes type 2, uncontrolled Ectopic Hyperlipidemia Hypertension Asthma Surgical History History of esophagogastroduodenoscopy (EGD) Hx of colonoscopy History of surgical procedure on mouth Hx of ectopic Family History Father Diabetes mellitus Stomach cancer Mother Diabetes mellitus Ovarian cancer Paternal Grandfather Colon cancer Paternal Aunt Liver cancer Paternal Aunt Liver cancer Social History Household Members: Family Housing: House Do you presently have visiting nurse or other home services: No Alcohol intake: never Patient Tobacco Use Status: Never used Tobacco Advance Directives Date on File: 07/15/22 service: No Current occupational status: employed Physical Exam Vital Signs: Last Vital Signs Pulse 84 01/16/25 08:46 BP 124/84 01/16/25 08:46 Pulse Ox 97 01/16/25 08:46 Oxygen Delivery Method Room Air 01/16/25 08:46 BMI result Body Mass Index 36.1 Const Orientation/consciousness: patient oriented x3 Neck Neck: Yes no lymphadenopathy Thyroid: Thyroid normal Carotids: no bruits Resp Auscultation: clear to auscultation bilaterally Cardio Rate: regular rate Rhythm: regular rhythm Heart sounds: S1 normal heart sound present and S2 normal heart sound present Peripheral pulses: dorsalis pedis present Neuro General: patient oriented x3, gait normal and no focal motor deficits Extrem Other: Monofilament sensation intact bilaterally. Vibratory sensation intact bilaterally. Skin intact. General: Yes normal to inspection Results AMB Hemoglobin A1c AMB Hemoglobin A1c 11.1 % Last Edit by ARACELY Diamond on 01/16/25 09:02 Results Reviewed Results Reviewed: Laboratory Last Values Glucose (Clinic) 184 mg/dL (60-115) H 01/16/25 08:52 Hgb A1c (Clinic) 11.1 % (4.0-6.0) H 01/16/25 08:55 Laboratory Tests 10/22/24 10/22/24 12/25/24 07:52 07:54 14:54 Sodium 137 Potassium 3.3 Chloride 101 Carbon Dioxide 25 Anion Gap 14 BUN 6 L Creatinine 0.64 Estim Creat Clear Calc 127.8 Estimated GFR > 60 Random Glucose 258 H Hemoglobin A1c % 7.4 H AST 26 ALT 45 H Alkaline Phosphatase 108 B-Natriuretic Peptide 27 Triglycerides 137 Cholesterol 242 H LDL Cholesterol, Calc 154 H HDL Cholesterol 61 Urine Creatinine 148.88 Urine Microalbumin 14.0 Microalb/Creat Ratio 9.4 Assessment & Plan Assessment & Plan (1) Diabetes type 2, uncontrolled: Code(s): E11.65 - Type 2 diabetes mellitus with hyperglycemia Category: Medical Qualifiers: Glycemic state: with hyperglycemia Qualified Code(s): E11.65 - Type 2 diabetes mellitus with hyperglycemia Plan: We will restart Mounjaro at 10 mg. Increase Lantus to 35 units nightly Restart Humalog 5 units with meals I will see her back on Thursday. (2) 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: Code(s): Z79.4 - 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 Category: Medical Plan: As above (3) Hypertension: Code(s): I10 - Essential (primary) hypertension Category: Medical Qualifiers: Hypertension type: essential hypertension Qualified Code(s): I10 - Essential (primary) hypertension Plan: Continue monitoring. (4) Hyperlipidemia: Code(s): E78.5 - Hyperlipidemia, unspecified Category: Medical Qualifiers: Hyperlipidemia type: pure hypercholesterolemia Qualified Code(s): E78.00 - Pure hypercholesterolemia, unspecified Plan: Discussed importance of compliance. Discussed her goal less than 100. Plan Short term follow up. Sooner if needed. Orders: Orders AMB Hemoglobin A1c Today E11.65 - Type 2 diabetes mellitus with hyperglycemia, Z13.9 - Encounter for screening, unspecified Medications: New tirzepatide (Mounjaro) 10 mg (0.5 mL) subcut QWEEK 2 mL 3RF insulin lispro (Humalog KwikPen (U-100) Insulin) 5 units (0.05 mL) subcut TID 15 mL 3RF Changed From insulin glargine (Lantus Solostar U-100 Insulin) 10 units subcut QPM To insulin glargine (Lantus Solostar U-100 Insulin) 35 units subcut QPM Coding Level of Care Code Est Pt Level 4 (25688) Complex EM visit Add On G2211 Diagnoses Uncontrolled type 2 diabetes mellitus with hyperglycemia E11.65 Glycemic state: with hyperglycemia 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 Z79.4 Essential hypertension I10 Hypertension type: essential hypertension Pure hypercholesterolemia E78.00 Hyperlipidemia type: pure hypercholesterolemia
[2025-01-16 08:46] VITALS: BP 124/84; PULSE 84; O2SAT 97; BMI 36.1
[2025-01-16 08:56] LABS: Glucose, Whole Blood 184 mg/dL (60-115)
--- OUTSIDE RECORDS SUMMARY | 2025-01-16 09:12 | XMS_ITS ---
Author Organization [facility] Address [address] [place] [address] Care Team Providers Care Operating Room Tech Name Role Phone SID REYES Unavailable [phone] MEDICATIONS Medication SIG (Take, Route, Fr equency, Duration) Notes Start Date End Date Status Mounjaro 12.5 MG/0.5ML 12.5mg Subcutaneo us weekly for 30 days Active Encounters Encounter Location Date Provider Diagnosis [place] [address] [address] 04/08/2024 SID REYES Essential (primary) hypertension I10 [...] (ICD-10 - I10) #Weight Management 04/08/2024 Her field servicer is happy with her progress and our [...] minimum of 6 months The most recent [place] Association of clinical endocrinologists and [place] [employer] of endocrinology guidelines recommend patients who [...] track activity level. Consider using apps like Pixplit, myfitnesspal, lose it, stick as needed for self-monitoring and weight management. Consider group exercises. Consider hiring a personal care aid. Regular exercise is uribe to sustainable health [...] counseling and psychiatry and Dr Vallecillo at [facility]. We would like to cover regular topics [...] software and direct typing Please excuse inadvertent utility clerk or typing errors, or uncorrected word substitutions Although every attempt has been made by the provider to proofread this document, occasional misspellings and typographical errors may still be present Due to the previous pandemic, and the use of personal protective equipment (PPE) This may decrease voice recognition accuracy Inadvertent utility clerk errors may occur 04/08/2024 Pure hypercholesterolemia (ICD-10 - E78.00) #Weight Management 04/08/2024 Her field servicer is happy with her progress and our [...] minimum of 6 months The most recent [place] [employer] of clinical endocrinologists and [place] [employer] of endocrinology guidelines recommend patients who [...] Consider group exercises. Consider hiring a personal care aid. Regular exercise is uribe to sustainable health [...] counseling and psychiatry and Dr Vallecillo at [facility]. We would like to cover regular topics [...] software and direct typing Please excuse inadvertent utility clerk or typing errors, or uncorrected word substitutions Although every attempt has been made by the provider to proofread this document, occasional misspellings and typographical errors may still be present Due to the previous pandemic, and the use of personal protective equipment (PPE) This may decrease voice recognition accuracy Inadvertent utility clerk errors may occur 04/08/2024 Type 2 diabetes mellitus without complications (ICD-10 - E11.9) #Weight Management 04/08/2024 Her field servicer is happy with her progress and our [...] minimum of 6 months The most recent [place] Association of clinical endocrinologists and [place] [employer] of endocrinology guidelines recommend patients who [...] track activity level. Consider using apps like Pixplit, SolartrecfitBusiness Insiderpal, lose it, stick as needed for self-monitoring and weight management. Consider group exercises. Consider hiring a personal care aid. Regular exercise is uribe to sustainable health [...] counseling and psychiatry and Dr Vallecillo at [facility]. We would like to cover regular topics [...] software and direct typing Please excuse inadvertent utility clerk or typing errors, or uncorrected word substitutions Although every attempt has been made by the provider to proofread this document, occasional misspellings and typographical errors may still be present Due to the previous pandemic, and the use of personal protective equipment (PPE) This may decrease voice recognition accuracy Inadvertent utility clerk errors may occur 04/08/2024 Other obesity due to excess calories (ICD-10 - E66.09) #Weight Management 04/08/2024 Her field servicer is happy with her progress and our [...] minimum of 6 months The most recent [place] Association of clinical endocrinologists and [place] [employer] of endocrinology guidelines recommend patients who [...] track activity level. Consider using apps like [employer] Nationise, myfitBusiness Insiderpal, lose it, stick as needed for self-monitoring and weight management. Consider group exercises. Consider hiring a personal care aid. Regular exercise is uribe to sustainable health [...] counseling and psychiatry and Dr Vallecillo at [facility]. We would like to cover regular topics [...] software and direct typing Please excuse inadvertent utility clerk or typing errors, or uncorrected word substitutions Although every attempt has been made by the provider to proofread this document, occasional misspellings and typographical errors may still be present Due to the previous pandemic, and the use of personal protective equipment (PPE) This may decrease voice recognition accuracy Inadvertent utility clerk errors may occur 04/08/2024 Body mass index [BMI ] 38.0-38.9, adult (ICD-10 - Z68.38) #Weight Management 04/08/2024 Her field servicer is happy with her progress and our [...] minimum of 6 months The most recent [place] Association of clinical endocrinologists and [place] College of endocrinology guidelines recommend patients who [...] track activity level. Consider using apps like Pixplit, SirenServpal, lose it, stick as needed for self-monitoring and weight management. Consider group exercises. Consider hiring a personal care aid. Regular exercise is uribe to sustainable health [...] counseling and psychiatry and Dr Vallecillo at [facility]. We would like to cover regular topics [...] software and direct typing Please excuse inadvertent utility clerk or typing errors, or uncorrected word substitutions Although every attempt has been made by the provider to proofread this document, occasional misspellings and typographical errors may still be present Due to the previous pandemic, and the use of personal protective equipment (PPE) This may decrease voice recognition accuracy Inadvertent utility clerk errors may occur 04/08/2024 Dietary counseling a nd surveillance (ICD-10 - Z71.3) #Weight Management 04/08/2024 Her field servicer is happy with her progress and our [...] minimum of 6 months The most recent [place] Association of clinical endocrinologists and [place] College of endocrinology guidelines recommend patients who [...] track activity level. Consider using apps like Pixplit, SirenServpal, lose it, stick as needed for self-monitoring and weight management. Consider group exercises. Consider hiring a personal care aid. Regular exercise is uribe to sustainable health [...] counseling and psychiatry and Dr Vallecillo at [facility]. We would like to cover regular topics [...] software and direct typing Please excuse inadvertent utility clerk or typing errors, or uncorrected word substitutions Although every attempt has been made by the provider to proofread this document, occasional misspellings and typographical errors may still be present Due to the previous pandemic, and the use of personal protective equipment (PPE) This may decrease voice recognition accuracy Inadvertent utility clerk errors may occur PLAN OF TREATMENT Medication Medication Name Sig Start Date Stop Date Notes Mounjaro 12.5 MG/0.5ML 12.5mg Subcutaneo us weekly for 30 days Progress Notes * Verito SORTOsDOB: 3 (49 yo F)Acc No.[id number]:04/08/2024 Patient:??Vonnie SORTO Provider:??SID REYES NP :1975?Age:48 Y?Sex:Fe male Date:04/08/2024 Address:[address] [place] [id number] Subjective: * Chief Complaints: * ? * [...] and she is happy with this. ?Her field servicer is happy with her progress and our [...] surveillance - Z71.3?? #Weight Management 04/08/2024 Her field servicer is happy with her progress and our [...] minimum of 6 months The most recent [place] Association of clinical endocrinologists and [place] College of endocrinology guidelines recommend patients who [...] track activity level. Consider using apps like Pixplit, SirenServpal, lose it, stick as needed for self-monitoring and weight management. Consider group exercises. Consider hiring a personal care aid. Regular exercise is uribe to sustainable health [...] counseling and psychiatry and Dr Vallecillo at [facility]. We would like to cover regular topics [...] software and direct typing Please excuse inadvertent utility clerk or typing errors, or uncorrected word substitutions Although every attempt has been made by the provider to proofread this document, occasional misspellings and typographical errors may still be present Due to the previous pandemic, and the use of personal protective equipment (PPE) This may decrease voice recognition accuracy Inadvertent utility clerk errors may occur. Plan: * Treatment: * [...] and she is happy with this. Her field servicer is happy with her progress and our [...] General Examination GENERAL APPEARANCE: in no ac alturas distress, well developed, well nourished HEAD: normocephalic, [...]
--- OUTSIDE RECORDS SUMMARY | 2025-01-16 09:13 | XMS_ITS ---
Author Organization [facility] Address [address] [place] [address] Care Team Providers Care Copper Plate Lithographer Name Role Phone LEONARDO AMARAL, [facility] Primary Care Provider Opal Monroe Unavailable [phone] Allergies Allergen (clinical drug ingredient) Drug/Non Drug Allergy documented on EMR Reaction Allergy Type Onset Date Status metformin Metformin HCl Diarrhea Drug Allergy Act cisco liraglutide Victoza Skin Rash Drug Allergy Activ e Lysteda Eye Redness Drug Allergy Activ e Results Component Value Reference Range Notes [id number] IGP No Culture 30 Plus Reviewed date:06/28/2024 06:57:35 PM Interpretation: Performing Lab:[facility], [address], [address], [place], Phone - [phone], Director - [facility] Notes/Report: Clinical Information:[id number] LMP / Prev Treat...LXZ=[id number] Dates / Results....03/19/23 NIL NEGHPV No. of containers..01 ThinPrep Vial DIAGNOSIS: NEGATIVE FOR IN TRAEPITHELIAL LESION OR MALIGNANCY. Specimen adequacy: Satisfactory for evaluation. Endocervical and/or squamous metaplastic cells (endocervical component) are present. Clinician provided ICD10: Z1 2.31 Performed by: Jose Kuhn , Insurance Claims Representative (ASCP) . . Note: The Pap smear [...] [address], [address], [place], Phone - [phone], Director - [facility] Notes/Report: Clinical Information:[id number] LMP / Prev Treat...LPI=[id number] Dates / Results....03/19/23 NIL NEGHPV No. of containers..01 ThinPrep Vial REASON FOR VISIT Annual ENTERTAINMENT MANAGER Physical, Annual ENTERTAINMENT MANAGER Physical 50-59* Medications Medication SIG (Take, Route, [...] 06/23/2024 Encounters Encounter Location Date Provider Diagnosis [address] [place] [address] 06/23/2024 Opal Aguirre Encounter for gynecological examination [...] Details Follow Up: 1 Year, Reason: Provider Name:Opla story, 06/27/2025 09:40:00 AM, [address], [address], [place], [address], Progress Notes * PATRICK DILLONSDOB: [birth year] (48 yo F)Acc No.[id number]:06/23/2024 PROGRESS NOTES Patient:?YESSENIA DILLON Appointment Provider:?Opal story M.D. :1975???Age:48 Y???Sex:Female D ate:06/23/2024 Address:[address] [place] [address], , [place] [id number] Pcp:JOSEF PATTERSON MD Subjective: * Chief Complaints: * ??? Annual ENTERTAINMENT MANAGER PhysicalAnnua l ENTERTAINMENT MANAGER Physical 50-59* * HPI: ???New/Follow-up Patient Consult:? [...] FULLY. HER LAST MAMMOGRAM WAS DONE AT [facility] IN FEBRUARY 2024.? WE DO NOT [...] adequate calcium via diet and supplementation ?Significant ENTERTAINMENT MANAGER problems:?no significant commercial plumber symptoms or problems * ROS:?general:?no?chest pain.?no?palpitations.?no?headache.?no?cough.?no?shortness of breath.?no?fever.?no?unexplained weight loss.?no?nausea/vomiting.?no?change in bowel movements.?no blood in stool.?no?genitourinary complaints.?no?skin complaints.? * Medical History:? * Final Cleaner History:?/ Para?2/2.?Sexual activity?Not currently sexually active x1yr.?Last Pap Smear:?03/19/23 NIL, NEG HPV, 04/12/21 ASC-H, POS HRHPV, 12/01/17 NEG HRHPV, 02/04/13, neg.?Mammogram:?2022, 02/15/21 < 50% density, 01/2020, 11/17/18 < 50% density, Bilateral Mammo with f/u Lt Breast. repeat in 3-6 months [facility]. ordered by PCP.?Abnormal Pap Smear:?yes, 05/23/21 [place] FARAZ I, 04/24/21 [place] FARAZ II, positive HRHPV in 2006.?LMP and [...] BP:122/82mm Hg, Temp:98.0F. * Examination: ???General Exam: ?CONSTITUTIONAL:?General Appearance:?alert, in no acute distress, normal, well nourished ?NECK/THYROID:?Inspection/Palpation:?normal ?Thyroid:?normal size and shape ?RESPIRATORY:?Auscultation: clear to auscultation bilaterally, Respiratory Effort: normal.?CARDIOVASCULAR:?Auscultation: regular rate and rhythm.?BREAST, Right:?Inspection/Palpation:?no discharge, no masses present, no nipple retraction, no skin changes, no skin dimpling, no tenderness, no lymphadenopathy, no axillary mass, no axillary tenderness ?BREAST, Left:?Inspection/Palpation:?no discharge, no masses present, no nipple retraction, no skin changes, no skin dimpling, no tenderness, no lymphadenopathy, no axillary mass, no axillary tenderness ?GASTROINTESTINAL:?Abdomen:?no masses, nontender, nondistended ?Liver and Spleen:?normal ?Hernias:?no hernias present, no inguinal adenopathy ?MUSCULOSKELETAL:?Inspection/Palpation:?no clubbing, cyanosis, or edema ?SKIN:?Skin:?normal ?NEURO/PSYCH:?Orientation:?time , place, person ?Mood/Affect:?normal?Genitourinary: ?EXTERNAL GENITALIA:?External Genitalia:?normal, no lesions ?VAGINA:?Vagina:?normal appearance, no abnormal discharge, no lesions ?BLADDER:?Bladder:?no mass, nontender ?URETHRA:?Urethra:?no erythema or lesions present ?CERVIX:?Cervix:?no lesions, nontender IUD STRINGS ARE IN PLACE ?UTERUS:?Uterus:?nontender, normal contour, normal mobility, normal size ?ADNEXA:?Adnexa:?no masses, no tenderness ?ANUS AND PERINEUM:?Anus/Perineum:?visually normal??? Assessment: * Assessment: 1.?Encounter for gynecologic al examination (general) (routine) without abnormal findings - Z01.419???2.?Encounter for screening mammogram for malignant neoplasm of breast - Z12.31???3.?Encounter for routine checking of intrauterine contraceptive device - Z30.431???4.?Personal history of cervical dysplasia - Z87.410??? Plan: * Treatment: 2.?Encounter for screening m ammogram for malignant neoplasm of breast?LAB: [id number] IGP No Culture 30 Plus ?Imaging: MM [...] * Images: Billing Information: * Visit Code:? 52243 Preventive Care New Pt. Age 40-64. 79439 Preventive Care Est Pt. Age 40-64. * Procedure Codes:? * Sign off status: Completed true * Appointment Provider:?Opal Aguirre M.D. Date:?06/23/2024 Generated for Jaime sinha/Christina/eTransmitting on:?01/16/2025 09:12 AM EST History and Physical Notes * HPI [...] FULLY. HER LAST MAMMOGRAM WAS DONE AT [facility] IN FEBRUARY 2024. WE DO NOT [...] ate calcium via diet and supplementation Significant ENTERTAINMENT MANAGER problems:: n o significant commercial plumber symptoms or problems Examination Category Sub-Category Detail [...]
--- OUTSIDE RECORDS SUMMARY | 2025-01-16 09:13 | XMS_ITS ---
Author Organization [facility] Address [address] [place] [address] Care Team Providers Care Leather Lacer Name Role Phone SID REYES Unavailable [phone] REASON FOR VISIT appt/ cx Encounters Encounter Location Date Provider Diagnosis [address] [address] 04/07/2024 SID REYES PLAN OF TREATMENT No Information Progress Notes * Verito SORTOsDOB: 3 (48 yo F)Acc No.[id number]:04/07/2024 Patient:??Vonnie SORTO :1975?Age:48 Y?Sex:Fe male Address:[address] [place] [address] * true * Date:??
--- OUTSIDE RECORDS SUMMARY | 2025-01-16 09:13 | XMS_ITS | Patient Health Record ---
Author Organization [facility] Address [address] [place] [address] Care Team Providers Care Car Washer Name Role Phone LEONARDO AMARAL, JOSEF Primary Care Provider Opal Monroe Unavailable [phone] Allergies Allergen (clinical drug ingredient) Drug/Non Drug Allergy documented on EMR Reaction Allergy Type Onset Date Status metformin Metformin HCl Diarrhea Drug Allergy Act cisco liraglutide Victoza Skin Rash Drug Allergy Activ e Lysteda Eye Redness Drug Allergy Activ e Results Component Value Reference Range Notes [id number] IGP No Culture 30 Plus Reviewed date:06/28/2024 06:57:35 PM Interpretation: Performing Lab:[facility] [place], [address], [address], [place], Phone - [phone], Director - [facility] Notes/Report: Clinical Information:[id number] LMP / Prev Treat...PFT=[id number] Dates / Results....03/19/23 NIL NEGHPV No. of containers..01 ThinPrep Vial DIAGNOSIS: NEGATIVE FOR IN TRAEPITHELIAL LESION OR MALIGNANCY. Specimen adequacy: Satisfactory for evaluation. Endocervical and/or squamous metaplastic cells (endocervical component) are present. Clinician provided ICD10: Z1 2.31 Performed by: Jose Kuhn , Life Skills Teacher (ASCP) . . Note: The Pap smear [...] [address], [address], [place], Phone - [phone], Director - [facility] Notes/Report: Clinical Information:[id number] LMP / Prev Treat...SKV=[id number] Dates / Results....03/19/23 NIL NEGHPV No. of [...] test positive, high risk on vaginal specimen (693732928687390) Cervical high risk human papillomavirus (HPV) DNA test positive (R87.810) Active confirmed Problem Vitamin D deficiency (91622445) Vitamin D deficiency, unspecified (E55.9) Active confirmed Problem Moderate cervical dysplasia (145043655) Moderate cervical dysplasia (N87.1) Active confirmed Problem Morbid obesity (disorder) (004189995) Morbid (severe) obesity due to excess calories (E66.01) Active confirmed Problem Amenorrhea (41203434) Amenorrhea, unspecified (N91.2) Active confirmed Problem Oligomenorrhea (60109121) Oligomenorrhea, unspecified (N91.5) Active confirmed Problem Abnormal vaginal bleeding (737982817) Other specified abnormal uterine and vaginal bleeding (N93.8) Active confirmed Problem Functional urinary incontinence (526962816) Functional urinary incontinence (R39.81) Active confirmed Problem History of dysplasia of cervix (636464614) Personal history of cervical dysplasia (Z87.410) Active confirmed Problem Type II diabetes mellitus without complication (927759792) Diabetes mellitus without mention of complication, type II or unspecified type, not stated as uncontrolled (250.00) Active confirmed Major Problem Benign essential hypertension (2979677) Essential hypertension, benign (401.1) Active confirmed Major Problem Vulvovaginitis (disorder) (92061284) Unspecified vaginitis and vulvovaginitis (616.10) Active confirmed Diag Problem Asthma (disorder) (856868314) Asthma, unspecified, unspecified status (493.90) Active confirmed Major Problem Absence of menstruation (60507954) Absence of menstruation (626.0) Active confirmed Diag Problem Gynecological examination normal (468731525990923) Routine gynecological examination (V72.31) Active confirmed Major Vital Signs Temperature 98.0 degrees Fahrenheit 06/23/2024 Blood pressure diastolic 82 mm Hg 06/23/2024 Height 66.25 in 06/23/2024 Blood pressure systolic 122 mm Hg 06/23/2024 Weight 226 lbs 06/23/2024 BMI 36.2 kg/m2 06/23/2024 Encounters Encounter Location Date Provider Diagnosis [place] [address] [place] [address] 03/22/2024 Opal Aguirre Total [address] [place] [address] 06/23/2024 Opal Aguirre Encounter for gynecological examination (general) (routine) without abnormal findings Z01.419 ; Encounter for screening mammogram for malignant neoplasm of breast Z12.31 ; Encounter for routine checking of intrauterine contraceptive device Z30.431 and Personal history of cervical dysplasia Z87.[address] [place] [address] 06/12/2024 Opal Aguirre Assessments Encounter Date Diagnosis [...] Name:Opal Mejia jez, 06/27/2025 09:40:00 AM, [address], [address], [place], [address], Insurance Providers Payer Name Payer Address Payer Phone Subscriber Number Group Number Insured Name Patient Relationship to Insured Coverage Start Date Coverage End Date [employer] [address] [address] [place] [phone] [id number] YESSENIA DILLON Self - patient is [...]
--- OUTSIDE RECORDS SUMMARY | 2025-01-16 09:13 | XMS_ITS ---
Author Organization [facility] Address [address] [place] [id number] Care Team Providers Care Maintenance Specialist Name Role Phone MAYRASID CALLOWAY Unavailable [phone] REASON FOR VISIT Flu like symptoms unable to come in seeing her pcp MEDICATIONS Medication SIG (Take, Route, Fr equency, Duration) Notes Start Date End Date Status Mounjaro 12.5 MG/0.5ML 12.5mg Subcutaneo us weekly for 30 days Active Encounters Encounter Location Date Provider Diagnosis [facility] [address] [address] 03/18/2024 SID REYES Essential (primary) hypertension I10 ; Pure hypercholesterolemia E78.00 ; Type 2 diabetes mellitus without complications E11.9 ; Other obesity due to excess calories E66.09 and Body mass index [BMI] 38.0-38.9, adult Z68.38 ASSESSMENTS Encounter Date Diagnosis Assessment Notes Treatment Notes Treatment Clinical Notes Section Notes 03/18/2024 Essential (primary) hypertension (ICD-10 - I10) #Weight Management 03/18/2024 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 Consider using apps like DescribeMe mionAutoRef.com excercise, myfitnesspal, lose it, stick as needed for self-monitoring and weight management. Consider group exercises. Consider hiring a hop strainer. Regular exercise is uribe to sustainable health [...] counseling and psychiatry and Dr Vallecillo at [facility]. 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 Consider group exercises. Consider hiring a hop strainer. Regular exercise is uribe to sustainable health [...] counseling and psychiatry and Dr Vallecillo at [facility]. We would like to cover regular topics [...] software and direct typing Please excuse inadvertent pulling machine operator or typing errors, or uncorrected word substitutions Although every attempt has been made by the provider to proofread this document, occasional misspellings and typographical errors may still be present Due to the previous pandemic, and the use of personal protective equipment (PPE) This may decrease voice recognition accuracy Inadvertent pulling machine operator errors may occur 03/18/2024 Type 2 diabetes mellitus without complications (ICD-10 - E11.9) #Weight Management 03/18/2024 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 Consider using apps like [employer], iodinepal, lose it, stick as needed for self-monitoring and weight management. Consider group exercises. Consider hiring a hop strainer. Regular exercise is uribe to sustainable health [...] counseling and psychiatry and Dr Vallecillo at [facility]. We would like to cover regular topics [...] software and direct typing Please excuse inadvertent pulling machine operator or typing errors, or uncorrected word substitutions Although every attempt has been made by the provider to proofread this document, occasional misspellings and typographical errors may still be present Due to the previous pandemic, and the use of personal protective equipment (PPE) This may decrease voice recognition accuracy Inadvertent pulling machine operator errors may occur 03/18/2024 Other obesity due to excess calories (ICD-10 - E66.09) #Weight Management 03/18/2024 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 Consider using apps like Out[employer], myfitKalpesh Wirelesspal, lose it, stick as needed for self-monitoring and weight management. Consider group exercises. Consider hiring a hop strainer. Regular exercise is uribe to sustainable health [...] counseling and psychiatry and Dr Vallecillo at [facility]. We would like to cover regular topics [...] software and direct typing Please excuse inadvertent pulling machine operator or typing errors, or uncorrected word substitutions Although every attempt has been made by the provider to proofread this document, occasional misspellings and typographical errors may still be present Due to the previous pandemic, and the use of personal protective equipment (PPE) This may decrease voice recognition accuracy Inadvertent pulling machine operator errors may occur 03/18/2024 Body mass index [BMI ] 38.0-38.9, adult (ICD-10 - Z68.38) #Weight Management 03/18/2024 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 Consider using apps like Out[employer], iodinepal, lose it, stick as needed for self-monitoring and weight management. Consider group exercises. Consider hiring a hop strainer. Regular exercise is uribe to sustainable health [...] counseling and psychiatry and Dr Vallecillo at [facility]. We would like to cover regular topics [...] software and direct typing Please excuse inadvertent pulling machine operator or typing errors, or uncorrected word substitutions Although every attempt has been made by the provider to proofread this document, occasional misspellings and typographical errors may still be present Due to the previous pandemic, and the use of personal protective equipment (PPE) This may decrease voice recognition accuracy Inadvertent pulling machine operator errors may occur PLAN OF TREATMENT Medication Medication Name Sig Start Date Stop Date Notes Mounjaro 12.5 MG/0.5ML 12.5mg Subcutaneo us weekly for 30 days Progress Notes * Verito SORTOsDOB: 3 (49 yo F)Acc No.[id number]:03/18/2024 Patient:??Vonnie SORTO Provider:??SID REYES NP :1975?Age:48 Y?Sex:Fe male Date:03/18/2024 Address:[address] [place], [place] [id number] Subjective: * Chief Complaints: * ?1. Flu [...] and she is happy with this. 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 ?Metabolic workup: ?Thyroid WNL ?Diabetes, [...] adult - Z68.38?? 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 Consider using apps like Out[employer], iodinepal, lose it, stick as needed for self-monitoring and weight management. Consider group exercises. Consider hiring a hop strainer. Regular exercise is uribe to sustainable health [...] counseling and psychiatry and Dr Vallecillo at [facility]. We would like to cover regular topics [...] software and direct typing Please excuse inadvertent pulling machine operator or typing errors, or uncorrected word substitutions Although every attempt has been made by the provider to proofread this document, occasional misspellings and typographical errors may still be present Due to the previous pandemic, and the use of personal protective equipment (PPE) This may decrease voice recognition accuracy Inadvertent pulling machine operator errors may occur. Plan: * Treatment: * [...] and she is happy with this. 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
--- OUTSIDE RECORDS SUMMARY | 2025-01-16 09:13 | XMS_ITS ---
Author Organization [facility] Address [address] [place] [address] [address] [place] [address] Care Team Providers Care Education Site Manager Name Role Phone LEONARDO AMARAL, JOSEF Primary Care Provider Opal Monroe Unavailable [phone] Allergies Allergen (clinical drug ingredient) Drug/Non Drug Allergy documented on EMR Reaction Allergy Type Onset Date Status metformin Metformin HCl Diarrhea Drug Allergy Act cisco liraglutide Victoza Skin Rash Drug Allergy Activ e Lysteda Eye Redness Drug Allergy Activ e REASON FOR VISIT Annual (YELLOW FORM DONE) Encounters Encounter Location Date Provider Diagnosis [facility] [address] [place] [phone] 03/22/2024 Opal Aguirre Plan Of Treatment Next Appt Details Provider Name:Opal story, 06/27/2025 09:40:00 AM, [address] [place] [address], [address], [place], [address], Progress Notes * PATRICK DILLONSDOB: [birth year] (49 yo F)Acc No.[id number]:03/22/2024 PROGRESS NOTES Patient:?YESSENIA DILLON Appointment Provider:?Opal story M.D. :1975???Age:48 Y???Sex:Female D ate:03/22/2024 Address:[address] [place] [address], [id number] Pcp:JOSEF PATTERSON MD Subjective: * Chief Complaints: [...] on cytologic smear of cervix (ASC-H). * Jewel Stripper History:?/ Para?2/2.?Sexual activity?Not currently sexually active x1yr.?Last Pap Smear:?03/19/23 NIL, NEG HPV, 04/12/21 ASC-H, POS HRHPV, 12/01/17 NEG HRHPV, 02/04/13, neg.?Mammogram:?02/15/21 < 50% density, 01/2020, 11/17/18 < 50% density, Bilateral Mammo with f/u Lt Breast. repeat in 3-6 months [facility]. ordered by PCP.?Abnormal Pap Smear:?yes, 05/23/21 [place] FARAZ I, 04/24/21 [place] FARAZ II, positive HRHPV in 2006.?LMP and [...] Electronic signature of Aneudy Aguirre MD on 01/16/2025 at 09:12 AM EST Sign off status: Pending * Appointment Provider:?Opal Aguirre M.D. Date:?03/22/2024 Generated for Jaime sinha/Christina/Mirian on:?01/16/2025 09:12 AM EST
--- OUTSIDE RECORDS SUMMARY | 2025-01-16 09:13 | XMS_ITS | Patient Health Record ---
Author Organization [facility] Address [address] [place] [address] Care Team Providers Care Medical Collections Name Role Phone SID REYES Unavailable [phone] ALLERGIES No Known Allergies REASON FOR REFERRAL [...] 500 MG Oral for 30 Ac tive Rfyedlvlcc-JFQH-Woieakzx 50-300-40 MG Oral for 3 Active Dexcom [...] diabetes mellitus without complications (E11.9) Active confirmed 319510400 Problem Morbid (severe) obes ity due to excess calories (E66.01) Active confirmed 133731778 Problem Other obesity due to excess calories (E66.09) Active confirmed 093894008 Problem Essential (primary) hypertension (I10) Active confirmed 48458595 Problem 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 (Z79.4) Active confirmed 085384916 Problem Pure hypercholesterolemia (E78.00) Active confirmed 834126548 Problem BMI 40.0-44.9, adult (Z68.41) Active confirmed 274826823 Problem Body mass index [BMI ] 38.0-38.9, adult (Z68.38) Active confirmed 880239491 VITAL SIGNS Heart Rate 87 /min 01/29/2024 Blood pressure diastolic 82 mm Hg 01/29/2024 Oximetry 98 % 01/29/2024 Height 66 in 01/29/2024 Blood pressure systolic 132 mm Hg 01/29/2024 Weight 231 lbs 01/29/2024 BMI 37.28 kg/m2 01/29/2024 Encounters Encounter Location Date Provider Diagnosis [place] [id number] [address] 03/18/2024 SID BORHOT Essential (primary) hypertension I10 ; Pure hypercholesterolemia E78.00 ; Type 2 diabetes mellitus without complications E11.9 ; Other obesity due to excess calories E66.09 and Body mass index [BMI] 38.0-38.9, adult Z68.38 [place] [address] [address] 04/08/2024 SID BORHOT Essential (primary) hypertension I10 ; Pure hypercholesterolemia E78.00 ; Type 2 diabetes mellitus without complications E11.9 ; Other obesity due to excess calories E66.09 ; Body mass index [BMI] 38.0-38.9, adult Z68.38 and Dietary counseling and surveillance Z71.3 [facility] [address] [facility] [address] [place] [address] 01/29/2024 SID REYES Essential (primary) hypertension I10 ; Pure hypercholesterolemia E78.00 ; Type 2 diabetes mellitus without complications E11.9 ; Other obesity due to excess calories E66.09 and Body mass index [BMI] 38.0-38.9, adult Z68.38 [address] [facility] [address] [place] [address] 04/07/2024 SID REYES ASSESSMENTS Encounter Date Diagnosis Assessment Notes Treatment Notes Treatment Clinical Notes Section Notes 01/29/2024 Essential (primary) hypertension (ICD-10 - I10) #Weight Management 01/29/2024 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 Consider using apps like [employer], [employer] Pharmaceuticalspal, lose it, stick as needed for self-monitoring and weight management. Consider group exercises. Consider hiring a medical management trainer. Regular exercise is uribe to sustainable health [...] counseling and psychiatry and Dr Vallecillo at [facility]. 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 Consider using apps like K[employer], [email or web address], lose it, stick as needed for self-monitoring and weight management. Consider group exercises. Consider hiring a medical management trainer. Regular exercise is uribe to sustainable health [...] counseling and psychiatry and Dr Vallecillo at [facility]. 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 Consider using apps like [employer], [employer], lose it, stick as needed for self-monitoring and weight management. Consider group exercises. Consider hiring a medical management trainer. Regular exercise is uribe to sustainable health [...] counseling and psychiatry and Dr Vallecillo at [facility]. 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 Consider using apps like K[employer], [employer], lose it, stick as needed for self-monitoring and weight management. Consider group exercises. Consider hiring a medical management trainer. Regular exercise is uribe to sustainable health [...] counseling and psychiatry and Dr Vallecillo at [facility]. 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 Consider using apps like K[employer]uan, [employer], lose it, stick as needed for self-monitoring and weight management. Consider group exercises. Consider hiring a medical management trainer. Regular exercise is uribe to sustainable health [...] counseling and psychiatry and Dr Vallecillo at [facility]. 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 Consider using apps like [employer] exceParascaleise, myfitnesspal, lose it, stick as needed for self-monitoring and weight management. Consider group exercises. Consider hiring a medical management trainer. Regular exercise is uribe to sustainable health [...] counseling and psychiatry and Dr Vallecillo at [facility]. We would like to cover regular topics [...] software and direct typing Please excuse inadvertent slot floor attendant or typing errors, or uncorrected word substitutions Although every attempt has been made by the provider to proofread this document, occasional misspellings and typographical errors may still be present Due to the previous pandemic, and the use of personal protective equipment (PPE) This may decrease voice recognition accuracy Inadvertent slot floor attendant errors may occur 01/29/2024 Type 2 diabetes mellitus without complications (ICD-10 - E11.9) #Weight Management 01/29/2024 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 Consider using apps like K[employer]uan, myfitnesspal, lose it, stick as needed for self-monitoring and weight management. Consider group exercises. Consider hiring a medical management trainer. Regular exercise is uribe to sustainable health [...] counseling and psychiatry and Dr Vallecillo at [facility]. We would like to cover regular topics [...] software and direct typing Please excuse inadvertent slot floor attendant or typing errors, or uncorrected word substitutions Although every attempt has been made by the provider to proofread this document, occasional misspellings and typographical errors may still be present Due to the previous pandemic, and the use of personal protective equipment (PPE) This may decrease voice recognition accuracy Inadvertent slot floor attendant errors may occur 03/18/2024 Type 2 diabetes mellitus without complications (ICD-10 - E11.9) #Weight Management 03/18/2024 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 Consider using apps like Kutuan, [employer], lose it, stick as needed for self-monitoring and weight management. Consider group exercises. Consider hiring a medical management trainer. Regular exercise is uribe to sustainable health [...] counseling and psychiatry and Dr Vallecillo at [facility]. We would like to cover regular topics [...] software and direct typing Please excuse inadvertent slot floor attendant or typing errors, or uncorrected word substitutions Although every attempt has been made by the provider to proofread this document, occasional misspellings and typographical errors may still be present Due to the previous pandemic, and the use of personal protective equipment (PPE) This may decrease voice recognition accuracy Inadvertent slot floor attendant errors may occur 04/08/2024 Type 2 diabetes mellitus without complications (ICD-10 - E11.9) #Weight Management 04/08/2024 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 Consider using apps like Kutuan, [email or web address], lose it, stick as needed for self-monitoring and weight management. Consider group exercises. Consider hiring a medical management trainer. Regular exercise is uribe to sustainable health [...] counseling and psychiatry and Dr Vallecillo at [facility]. 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 Consider using apps like Kutuan, [employer], lose it, stick as needed for self-monitoring and weight management. Consider group exercises. Consider hiring a medical management trainer. Regular exercise is uribe to sustainable health [...] counseling and psychiatry and Dr Vallecillo at [facility]. 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 Consider using apps like Kutuan, [employer], lose it, stick as needed for self-monitoring and weight management. Consider group exercises. Consider hiring a medical management trainer. Regular exercise is uribe to sustainable health [...] counseling and psychiatry and Dr Vallecillo at [facility]. 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 Consider using apps like Kutuan, [email or web address], lose it, stick as needed for self-monitoring and weight management. Consider group exercises. Consider hiring a medical management trainer. Regular exercise is uribe to sustainable health [...] counseling and psychiatry and Dr Vallecillo at [facility]. 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 Consider using apps like K[employer], [employer], lose it, stick as needed for self-monitoring and weight management. Consider group exercises. Consider hiring a medical management trainer. Regular exercise is uribe to sustainable health [...] counseling and psychiatry and Dr Vallecillo at [facility]. 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 Consider using apps like Kutuan, [employer], lose it, stick as needed for self-monitoring and weight management. Consider group exercises. Consider hiring a medical management trainer. Regular exercise is uribe to sustainable health [...] counseling and psychiatry and Dr Vallecillo at [facility]. 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 Consider using apps like K[employer], [email or web address], lose it, stick as needed for self-monitoring and weight management. Consider group exercises. Consider hiring a medical management trainer. Regular exercise is uribe to sustainable health [...] counseling and psychiatry and Dr Vallecillo at [facility]. 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 Consider using apps like K[employer], myfitnesspal, lose it, stick as needed for self-monitoring and weight management. Consider group exercises. Consider hiring a medical management trainer. Regular exercise is uribe to sustainable health [...] counseling and psychiatry and Dr Vallecillo at [facility]. We would like to cover regular topics [...] software and direct typing Please excuse inadvertent slot floor attendant or typing errors, or uncorrected word substitutions Although every attempt has been made by the provider to proofread this document, occasional misspellings and typographical errors may still be present Due to the previous pandemic, and the use of personal protective equipment (PPE) This may decrease voice recognition accuracy Inadvertent slot floor attendant errors may occur PLAN OF TREATMENT No Information Insurance Providers Payer Name Payer Address Payer Phone Subscriber Number Group Number Insured Name Patient Relationship to Insured Coverage Start Date Coverage End Date [employer] [place] [address] [address] [place] [address] [id number] Vonnie Sorto Self - patient is the insured MEDICAL (GENERAL) HISTORY Medical History History ICD Code hypertension type II diabetes hyperlipidemia asthma headache anxiety Hospitalization History Reason Date(Month/Year) asthma 07/19/2022
--- OUTSIDE RECORDS SUMMARY | 2025-01-16 09:14 | XMS_ITS ---
Author Organization [facility] Address [address] [place] [address] Care Team Providers Care Electronic Pagination System Operator Name Role Phone LEONARDO AMARAL, [facility] Primary Care Provider Opal Monroe [phone] REASON FOR VISIT No showed for March 2024 visit but yellow sheet completed Encounters Encounter Location Date Provider Diagnosis [facility] [employer] [address] [place] [address] 06/12/2024 Opal Aguirre Plan Of Treatment Next Appt Details Provider Name:Opal story, 06/27/2025 09:40:00 AM, [address], [address], [place], [address], Progress Notes * PATRICK DILLONSDOB: [birth year] (48 yo F)Acc No.[id number]:06/12/2024 Patient:?YESSENIA DILLON :1975???Age:48 Y???Sex:Female Address:[address] [place] [address], [place], [address] * true * Date:? Generated for Jcarlosi bharath/Christina/eTransmitting on:?01/16/2025 09:13 AM EST
== END 2025-01-16 09:11 | disposition home or self-care (01) ==
PROVIDERS: PCP Internal Medicine; Visit Provider Physician Assistant
DX: E11.65 Type 2 diabetes mellitus with hyperglycemia (principal); Z79.4 Long term (current) use of insulin; I10 Essential (primary) hypertension; E78.00 Pure hypercholesterolemia, unspecified; Z13.9 Encounter for screening, unspecified

== ENCOUNTER → 2025-01-16 08:42 | Outpatient (BNVA) | payer OTHER, SELFPAY | PROVIDERS: PCP Internal Medicine; Visit Provider Physician Assistant | DX: E11.65 Type 2 diabetes mellitus with hyperglycemia (principal); I10 Essential (primary) hypertension; E78.00 Pure hypercholesterolemia, unspecified; Z79.4 Long term (current) use of insulin | CPT/HCPCS: 82947; 83036 ==

== ENCOUNTER 2025-01-20 08:36 | Outpatient (AMB) | payer OTHER, SELFPAY ==
[2025-01-20 08:41] VITALS: BP 130/74; PULSE 84; O2SAT 96; BMI 36.0
--- NOTE | 2025-01-20 08:41 | MHC.OFFVIS ---
Vital Signs 01/20/25 08:41 Height 5 ft 7 in Weight 229 lb 11.547 oz BMI 36.0 BP 130/74 Blood Pressure Location Rt brachial Position Sitting Pulse 84 Pulse Source Pulse Oximeter Pulse Oximetry (%) 96 Oxygen Delivery Method Room Air Intake Visit Reasons: T2DM Intake Note: Patient present today to follow up on Type 2 Diabetes Mellitus. Last Diabetic Eye exam: 11/2024 Last Podiatry Visit: Does not see a Slusher Operator Random Glucose: 147 smg/dl HgA1C: 11.1% 01/16/2025 Educational Programming Director Required: No Accompanied by: Self / Same As Patient Allergies metronidazole [From Flagyl] Allergy (Severe, Verified 01/20/25 08:42) Anaphylaxis canagliflozin [Invokana] Allergy (Unknown, Verified 01/20/25 08:42) rash liraglutide Allergy (Unknown, Verified 01/20/25 08:42) rash animals Allergy (Unknown, Uncoded 01/20/25 08:42) rash Pt states no known food allerg Allergy (Unknown, Uncoded 01/20/25 08:42) Unknown Medication List - Last Reconciled 01/20/25 by Beth Villalobos PA-C albuterol sulfate 90 mcg/actuation 2 puffs inhalation Q6H PRN albuterol sulfate 5 mg inhalation Q4H PRN albuterol sulfate 2.5 mg inhalation BID PRN amitriptyline 1 tab PO BEDTIME blood sugar diagnostic (FreeStyle Lite Strips) use daily As directed blood-glucose meter (FreeStyle Lite Meter kit) As directed blood-glucose sensor (Dexcom G7 Sensor device) As directed change every 10 days empagliflozin (Jardiance) 25 mg PO DAILY ergocalciferol (vitamin D2) 1,250 mcg PO WE@0900 insulin glargine (Lantus Solostar U-100 Insulin) 40 units subcut QPM insulin lispro (Humalog KwikPen (U-100) Insulin) 15 units (0.15 mL) subcut TID ketorolac 10 mg PO Q8H PRN lancets (FreeStyle Lancets) 5x/day montelukast 10 mg PO BEDTIME nebulizers (Compact Compressor Nebulizer) As directed nebulizers (AeroEclipse II Nebulizer) As directed nystatin 600,000 units (6 mL) PO QID 10 days omalizumab (Xolair) 300 mg subcut Q2W 28 days omeprazole 40 mg PO DAILY@0630 pen needle, diabetic (Comfort EZ Pen Ernest) As directed injects 4X/day pen needle, diabetic (BD Ultra-Fine Mini Pen Needle) use 4x a day As directed rosuvastatin 40 mg PO BEDTIME 90 days tirzepatide (Mounjaro) 10 mg (0.5 mL) subcut QWEEK HPI HPI T2DM: Details: Patient is a 49-year-old female with a significant past medical history obesity, uncontrolled type 2 diabetes, hypertension, hyperlipidemia, asthma presenting today for a follow-up for diabetes. Endo: Her last A1c was 7.4 and today is 11.1. Her blood sugar in the office is 147. She is currently on Lantus 30 units, Humalog 15 units with food and waiting for the prior authorization from insurance regarding Mounjaro 10 mg. -she was supposed to be on Humalog 5 units with meals but over the last 2 days increase the dosage and states that the numbers are better with this. She also was supposed to be on 35 units of the Lantus but has not been taking between 20 and 30 units. -for the last 4 weeks she has been unable to get her Mounjaro. She states that she did take 1 prescription of the 12.5 and prior to that was on the 10 mg. She states that her insurance needs a prior Auth. We do not have anything from the pharmacy that indicated this. She states since being off of the Mounjaro her blood sugars have been very high. -does not tolerate metformin GI distress, trulicity caused diarrhea, victoza caused a rash and nausea She says that she has been trying to eat healthy and has had a lot of smoothies which she recently realize was high in sugar. She states that she has been drinking a lot of water and urinating more frequently because of the elevated blood sugars. No vision changes, headaches, chest pain or shortness on breath. Reviewed her dexcom- 77% very high, 18% high, 5% in range. 0% hypoglycemic events CV: Blood pressure today in the office is 130/74. Cholesterol is managed with rosuvastatin 40 mg. Reports that there were some compliance issues. Last LDL elevated above goal. No myalgias. [facility] Medical History Environmental allergies Anxiety Eosinophilia Obesity due to excess calories Vitamin D deficiency Diabetic 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 with type 2 diabetes mellitus half-way (current) use of insulin Diabetes type 2, uncontrolled Ectopic Hyperlipidemia Hypertension Asthma Surgical History History of esophagogastroduodenoscopy (EGD) Hx of colonoscopy History of surgical procedure on mouth Hx of ectopic Family History Father Diabetes mellitus Stomach cancer Mother Diabetes mellitus Ovarian cancer Paternal Grandfather Colon cancer Paternal Aunt Liver cancer Paternal Aunt Liver cancer Social History Household Members: Family Housing: House Do you presently have visiting nurse or other home services: No Alcohol intake: never Patient Tobacco Use Status: Never used Tobacco Advance Directives Date on File: 07/15/22 service: No Current occupational status: employed Physical Exam Vital Signs: BMI result Body Mass Index 36.0 Const Orientation/consciousness: patient oriented x3 HEENT Ears: hearing grossly normal bilaterally Neck Thyroid: Thyroid normal Lymphatic: no lymphadenopathy noted Resp Auscultation: clear to auscultation bilaterally Cardio Rate: regular rate Rhythm: regular rhythm Heart sounds: S1 normal heart sound present and S2 normal heart sound present Skin General skin exam: no rashes or lesions noted Neuro General: patient oriented x3, gait normal and no focal motor deficits Assessment & Plan Assessment & Plan (1) Diabetes type 2, uncontrolled: Code(s): E11.65 - Type 2 diabetes mellitus with hyperglycemia Category: Medical Qualifiers: Glycemic state: with hyperglycemia Qualified Code(s): E11.65 - Type 2 diabetes mellitus with hyperglycemia Plan: Increase Lantus to 40 units. Continue with the Humalog 15 units with meals. We are resubmitted the office notes for the prior authorization regarding the [place]. She does not tolerate Trulicity, Victoza or metformin. (2) half-way (current) use of insulin: Code(s): Z79.4 - half-way (current) use of insulin Category: Medical Plan: See above (3) Hypertension: Code(s): I10 - Essential (primary) hypertension Category: Medical Qualifiers: Hypertension type: essential hypertension Qualified Code(s): I10 - Essential (primary) hypertension Plan: WNL. Continue current regimen Medications: Changed From insulin lispro (Humalog KwikPen (U-100) Insulin) 5 units (0.05 mL) subcut TID 15 mL 3RF To insulin lispro (Humalog KwikPen (U-100) Insulin) 15 units (0.15 mL) subcut TID 15 mL 3RF Patient Instructions: increase lantus to 40 units continue humalog 15 units with meals Coding Level of Care Code Est Pt Level 4 (26304) Complex EM visit Add On G2211 Diagnoses Uncontrolled type 2 diabetes mellitus with hyperglycemia E11.65 Glycemic state: with hyperglycemia intermodal dispatcher (current) use of insulin Z79.4 Essential hypertension I10 Hypertension type: essential hypertension
[2025-01-20 08:50] LABS: Glucose, Whole Blood 147 mg/dL (60-115)
--- OUTSIDE RECORDS SUMMARY | 2025-01-20 09:06 | XMS_ITS ---
Author Organization [facility] Address [address] [place] [id number] Care Team Providers Care Night Warehouse Manager Name Role Phone SID REYES Unavailable [phone] MEDICATIONS Medication SIG (Take, Route, Fr equency, Duration) Notes Start Date End Date Status Mounjaro 12.5 MG/0.5ML 12.5mg Subcutaneo us weekly for 30 days Active Encounters Encounter Location Date Provider Diagnosis [place] [id number] [address] 04/08/2024 SID REYES Essential (primary) hypertension I10 [...] (ICD-10 - I10) #Weight Management 04/08/2024 Her lockmaker is happy with her progress and our [...] minimum of 6 months The most recent [place] Association of clinical endocrinologists and [place] College of endocrinology guidelines recommend patients who [...] track activity level. Consider using apps like Sina Weibo, myfitnesspal, lose it, stick as needed for self-monitoring and weight management. Consider group exercises. Consider hiring a personal service workers. Regular exercise is uribe to sustainable health [...] counseling and psychiatry and Dr Vallecillo at [facility]. We would like to cover regular topics [...] software and direct typing Please excuse inadvertent 5th grade teacher or typing errors, or uncorrected word substitutions Although every attempt has been made by the provider to proofread this document, occasional misspellings and typographical errors may still be present Due to the previous pandemic, and the use of personal protective equipment (PPE) This may decrease voice recognition accuracy Inadvertent 5th grade teacher errors may occur 04/08/2024 Pure hypercholesterolemia (ICD-10 - E78.00) #Weight Management 04/08/2024 Her lockmaker is happy with her progress and our [...] minimum of 6 months The most recent [place] Association of clinical endocrinologists and [place] College of endocrinology guidelines recommend patients who [...] Consider group exercises. Consider hiring a personal service workers. Regular exercise is uribe to sustainable health [...] counseling and psychiatry and Dr Vallecillo at [facility]. We would like to cover regular topics [...] software and direct typing Please excuse inadvertent 5th grade teacher or typing errors, or uncorrected word substitutions Although every attempt has been made by the provider to proofread this document, occasional misspellings and typographical errors may still be present Due to the previous pandemic, and the use of personal protective equipment (PPE) This may decrease voice recognition accuracy Inadvertent 5th grade teacher errors may occur 04/08/2024 Type 2 diabetes mellitus without complications (ICD-10 - E11.9) #Weight Management 04/08/2024 Her lockmaker is happy with her progress and our [...] minimum of 6 months The most recent [place] Association of clinical endocrinologists and [place] College of endocrinology guidelines recommend patients who [...] track activity level. Consider using apps like Sina Weibo, [employer] Prote[employer] TherapeuticsfitAMECpal, lose it, stick as needed for self-monitoring and weight management. Consider group exercises. Consider hiring a personal service workers. Regular exercise is uribe to sustainable health [...] counseling and psychiatry and Dr Vallecillo at [facility]. We would like to cover regular topics [...] software and direct typing Please excuse inadvertent 5th grade teacher or typing errors, or uncorrected word substitutions Although every attempt has been made by the provider to proofread this document, occasional misspellings and typographical errors may still be present Due to the previous pandemic, and the use of personal protective equipment (PPE) This may decrease voice recognition accuracy Inadvertent 5th grade teacher errors may occur 04/08/2024 Other obesity due to excess calories (ICD-10 - E66.09) #Weight Management 04/08/2024 Her lockmaker is happy with her progress and our [...] minimum of 6 months The most recent [place] Association of clinical endocrinologists and [place] College of endocrinology guidelines recommend patients who [...] track activity level. Consider using apps like Sportsgritise, myfitAMECpal, lose it, stick as needed for self-monitoring and weight management. Consider group exercises. Consider hiring a personal service workers. Regular exercise is uribe to sustainable health [...] counseling and psychiatry and Dr Vallecillo at [facility]. We would like to cover regular topics [...] software and direct typing Please excuse inadvertent 5th grade teacher or typing errors, or uncorrected word substitutions Although every attempt has been made by the provider to proofread this document, occasional misspellings and typographical errors may still be present Due to the previous pandemic, and the use of personal protective equipment (PPE) This may decrease voice recognition accuracy Inadvertent 5th grade teacher errors may occur 04/08/2024 Body mass index [BMI ] 38.0-38.9, adult (ICD-10 - Z68.38) #Weight Management 04/08/2024 Her lockmaker is happy with her progress and our [...] minimum of 6 months The most recent [place] Association of clinical endocrinologists and [place] College of endocrinology guidelines recommend patients who [...] track activity level. Consider using apps like Sina Weibo, Works.iopal, lose it, stick as needed for self-monitoring and weight management. Consider group exercises. Consider hiring a personal service workers. Regular exercise is uribe to sustainable health [...] counseling and psychiatry and Dr Vallecillo at [facility]. We would like to cover regular topics [...] software and direct typing Please excuse inadvertent 5th grade teacher or typing errors, or uncorrected word substitutions Although every attempt has been made by the provider to proofread this document, occasional misspellings and typographical errors may still be present Due to the previous pandemic, and the use of personal protective equipment (PPE) This may decrease voice recognition accuracy Inadvertent 5th grade teacher errors may occur 04/08/2024 Dietary counseling a nd surveillance (ICD-10 - Z71.3) #Weight Management 04/08/2024 Her lockmaker is happy with her progress and our [...] minimum of 6 months The most recent [place] Association of clinical endocrinologists and Vietnamese College of endocrinology guidelines recommend patients who [...] track activity level. Consider using apps like Sina Weibo, Works.iopal, lose it, stick as needed for self-monitoring and weight management. Consider group exercises. Consider hiring a personal service workers. Regular exercise is ruibe to sustainable health and prevents as a [...] counseling and psychiatry and Dr Vallecillo at [facility]. We would like to cover regular topics [...] software and direct typing Please excuse inadvertent 5th grade teacher or typing errors, or uncorrected word substitutions Although every attempt has been made by the provider to proofread this document, occasional misspellings and typographical errors may still be present Due to the previous pandemic, and the use of personal protective equipment (PPE) This may decrease voice recognition accuracy Inadvertent 5th grade teacher errors may occur PLAN OF TREATMENT Medication Medication Name Sig Start Date Stop Date Notes Mounjaro 12.5 MG/0.5ML 12.5mg Subcutaneo us weekly for 30 days Progress Notes * Verito SORTOsDOB: 3 (49 yo F)Acc No.[id number]:04/08/2024 Patient:??Vonnie SORTO Provider:??SID REYES NP :1975?Age:48 Y?Sex:Fe male Date:04/08/2024 Address:[address] [place] [id number] Subjective: * Chief Complaints: * ? * [...] and she is happy with this. ?Her lockmaker is happy with her progress and our [...] surveillance - Z71.3?? #Weight Management 04/08/2024 Her lockmaker is happy with her progress and our [...] minimum of 6 months The most recent [place] Association of clinical endocrinologists and Vietnamese College of endocrinology guidelines recommend patients who [...] track activity level. Consider using apps like Sina Weibo, Works.iopal, lose it, stick as needed for self-monitoring and weight management. Consider group exercises. Consider hiring a personal service workers. Regular exercise is uribe to sustainable health [...] counseling and psychiatry and Dr Vallecillo at [facility]. We would like to cover regular topics [...] software and direct typing Please excuse inadvertent 5th grade teacher or typing errors, or uncorrected word substitutions Although every attempt has been made by the provider to proofread this document, occasional misspellings and typographical errors may still be present Due to the previous pandemic, and the use of personal protective equipment (PPE) This may decrease voice recognition accuracy Inadvertent 5th grade teacher errors may occur. Plan: * Treatment: * [...] and she is happy with this. Her lockmaker is happy with her progress and our [...] General Examination GENERAL APPEARANCE: in no ac [place] distress, well developed, well nourished HEAD: normocephalic, [...]
--- OUTSIDE RECORDS SUMMARY | 2025-01-20 09:06 | XMS_ITS ---
Author Organization [facility] Address [address] [place] [address] Care Team Providers Care Brooch And Bracelet Maker Name Role Phone LEONARDO AMARAL, JOSEF Primary Care Provider Opal [place] Unavailable [phone] Allergies Allergen (clinical drug ingredient) Drug/Non Drug Allergy documented on EMR Reaction Allergy Type Onset Date Status Metformin HCl Diarrhea Drug Allergy Act cisco Victoza Skin Rash Drug Allergy Active Lysteda Eye Redness Drug Allergy Activ e Results Component Value Reference Range Notes [id number] IGP No Culture 30 Plus Reviewed date:06/28/2024 06:57:35 PM Interpretation: Performing Lab:[facility] [place], [address], [address], [place], Phone - [phone], Director - [facility] Notes/Report: Clinical Information:[id number] LMP / Prev Treat...UYP=[id number] Dates / Results....03/19/23 NIL NEGHPV No. of containers..01 ThinPrep Vial DIAGNOSIS: NEGATIVE FOR IN TRAEPITHELIAL LESION OR MALIGNANCY. Specimen adequacy: Satisfactory for evaluation. Endocervical and/or squamous metaplastic cells (endocervical component) are present. Clinician provided ICD10: Z1 2.31 Performed by: Jose Kuhn , Car Body Inspector (ASCP) . . Note: The Pap smear [...] [address], [address], [place], Phone - [phone], Director - [facility] Notes/Report: Clinical Information:[id number] LMP / Prev Treat...UIU=[id number] Dates / Results....03/19/23 NIL NEGHPV No. of containers..01 ThinPrep Vial REASON FOR VISIT Annual ENGINEERING EQUIPMENT OPERATOR Physical, Annual ENGINEERING EQUIPMENT OPERATOR Physical 50-59* Medications Medication SIG (Take, Route, [...] 06/23/2024 Encounters Encounter Location Date Provider Diagnosis [facility] [address] [place] [address] 06/23/2024 Opal Aguirre Encounter for gynecological examination [...] Provider Name:Opal story, 06/27/2025 09:40:00 AM, [address], [address], [place], [address], Progress Notes * PATRICK DILLONSDOB: [birth year] (48 yo F)Acc No.[id number]:06/23/2024 PROGRESS NOTES Patient:?YESSENIA DILLON Appointment Provider:?Opal story M.D. :1975???Age:48 Y???Sex:Female D ate:06/23/2024 Address:[address] [place] [address], , [id number] Pcp:JOSEF PATTERSON MD Subjective: * Chief Complaints: * ??? Annual ENGINEERING EQUIPMENT OPERATOR PhysicalAnnua l ENGINEERING EQUIPMENT OPERATOR Physical 50-59* * HPI: ???New/Follow-up Patient Consult:? [...] FULLY. HER LAST MAMMOGRAM WAS DONE AT [facility] IN FEBRUARY 2024.? WE DO NOT HAVE [...] adequate calcium via diet and supplementation ?Significant ENGINEERING EQUIPMENT OPERATOR problems:?no significant press feeder broomcorn symptoms or problems * ROS:?general:?no?chest pain.?no?palpitations.?no?headache.?no?cough.?no?shortness of breath.?no?fever.?no?unexplained weight loss.?no?nausea/vomiting.?no?change in bowel movements.?no blood in stool.?no?genitourinary complaints.?no?skin complaints.? * Medical History:? 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 repeat in 3-6 months [facility]. ordered by PCP.?Abnormal Pap Smear:?yes, 05/23/21 LEEP FARAZ I, 04/24/21 Vallejo FARAZ II, positive HRHPV in 2006.?LMP and menses?09/24/21, Spotting with Aygestin and Lysteda, 06/10/21.?History of STD's:?Chlamydia.? Control:?Mirena intrauterine device for cycle control..?*Hep B Vac?completed.? * OB History:?Total pregnancies?2.?Total living children?2.?NVD?2.? * Surgical History:?Ectopic * Hospitalization/Major Diagno stic Procedure:?See Siurgical Hx [...] m ammogram for malignant neoplasm of breast?LAB: [id number] IGP No Culture 30 Plus ?Imaging: MM [...] * Images: Billing Information: * Visit Code:? 19086 Preventive Care New Pt. Age 40-64. 66447 Preventive Care Est Pt. Age 40-64. * Procedure Codes:? * Sign off status: Completed true * Appointment Provider:?Opal Aguirre M.D. Date:?06/23/2024 Generated for Jaime sinha/Christina/eTransmitting on:?01/20/2025 09:06 AM EST History and Physical Notes * [...] FULLY. HER LAST MAMMOGRAM WAS DONE AT [facility] IN FEBRUARY 2024. WE DO NOT HAVE THE RESULTS. HER 2020 MAMMOGRAM SHOWED BREASTS ARE NOT DENSE AND WAS NORMAL. SHE HAS NOT HAD A COLONOSCOPY DONE YET. J&J X 1. Annual General Health Maintenance: Current breast complaints:: no breast pain, mass, discharge, or skin changes Urinary problems:: patient r shavon no urinary health problems or bowel health problems Calcium intake:: takes adequ ate calcium via diet and supplementation Significant ENGINEERING EQUIPMENT OPERATOR problems:: n o significant press feeder broomcorn symptoms or problems Examination Category Sub-Category Detail [...]
--- OUTSIDE RECORDS SUMMARY | 2025-01-20 09:07 | XMS_ITS | Patient Health Record ---
Author Organization [facility] Address [address] [place] [address] Care Team Providers Care Senior Portfolio Manager Name Role Phone SID REYES Unavailable [phone] ALLERGIES No Known Allergies REASON FOR REFERRAL [...] 500 MG Oral for 30 Ac tive Slagnkrgyh-KOYG-Afqryybj 50-300-40 MG Oral for 3 Active Dexcom [...] diabetes mellitus without complications (E11.9) Active confirmed 829336915 Problem Morbid (severe) obes ity due to excess calories (E66.01) Active confirmed 123037683 Problem Other obesity due to excess calories (E66.09) Active confirmed 148659431 Problem Essential (primary) hypertension (I10) Active confirmed 18410846 Problem 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) Active confirmed 744885923 Problem Pure hypercholesterolemia (E78.00) Active confirmed 304799168 Problem BMI 40.0-44.9, adult (Z68.41) Active confirmed 704856607 Problem Body mass index [BMI ] 38.0-38.9, adult (Z68.38) Active confirmed 589345808 VITAL SIGNS Heart Rate 87 /min 01/29/2024 Blood pressure diastolic 82 mm Hg 01/29/2024 Oximetry 98 % 01/29/2024 Height 66 in 01/29/2024 Blood pressure systolic 132 mm Hg 01/29/2024 Weight 231 lbs 01/29/2024 BMI 37.28 kg/m2 01/29/2024 Encounters Encounter Location Date Provider Diagnosis [place] [address] [address] 03/18/2024 SID BORHOT Essential (primary) hypertension I10 ; Pure hypercholesterolemia E78.00 ; Type 2 diabetes mellitus without complications E11.9 ; Other obesity due to excess calories E66.09 and Body mass index [BMI] 38.0-38.9, adult Z68.38 [place] [address] [address] 04/08/2024 SID BORHOT Essential (primary) hypertension I10 ; Pure hypercholesterolemia E78.00 ; Type 2 diabetes mellitus without complications E11.9 ; Other obesity due to excess calories E66.09 ; Body mass index [BMI] 38.0-38.9, adult Z68.38 and Dietary counseling and surveillance Z71.3 [facility] [address] [facility] [address] [place] [address] 01/29/2024 SID REYES Essential (primary) hypertension I10 ; Pure hypercholesterolemia E78.00 ; Type 2 diabetes mellitus without complications E11.9 ; Other obesity due to excess calories E66.09 and Body mass index [BMI] 38.0-38.9, adult Z68.38 [address] [facility] [address] [place] [address] 04/07/2024 SID REYES ASSESSMENTS Encounter Date Diagnosis Assessment Notes Treatment Notes Treatment Clinical Notes Section Notes 01/29/2024 Essential (primary) hypertension (ICD-10 - I10) #Weight Management 01/29/2024 Her databases computer consultant is happy with her progress and our [...] minimum of 6 months The most recent [place] [employer] clinical endocrinologists and [employer] end[employer] guidelines recommend patients who [...] track activity level. Consider using apps like Wim[employer], [employer], lose it, stick as needed for self-monitoring and weight management. Consider group exercises. Consider hiring a health and safety trainer. Regular exercise is uribe to sustainable [...] counseling and psychiatry and Dr Vallecillo at [facility]. We would like to cover regular topics [...] and direct typing Please excuse inadvertent director special education or typing errors, or uncorrected word substitutions Although every attempt has been made by the provider to proofread this document, occasional misspellings and typographical errors may still be present Due to the previous pandemic, and the use of personal protective equipment (PPE) This may decrease voice recognition accuracy Inadvertent director special education errors may occur 03/18/2024 Essential (primary) hypertension (ICD-10 - I10) #Weight Management 03/18/2024 Her databases computer consultant is happy with her progress and our [...] minimum of 6 months The most recent [place] [employer] clinical endocrinologists and [employer] end[employer] guidelines recommend patients who [...] track activity level. Consider using apps like Wimba, [employer], lose it, stick as needed for self-monitoring and weight management. Consider group exercises. Consider hiring a health and safety trainer. Regular exercise is uribe to sustainable [...] counseling and psychiatry and Dr Vallecillo at [facility]. We would like to cover regular topics [...] and direct typing Please excuse inadvertent director special education or typing errors, or uncorrected word substitutions Although every attempt has been made by the provider to proofread this document, occasional misspellings and typographical errors may still be present Due to the previous pandemic, and the use of personal protective equipment (PPE) This may decrease voice recognition accuracy Inadvertent director special education errors may occur 04/08/2024 Essential (primary) hypertension (ICD-10 - I10) #Weight Management 04/08/2024 Her databases computer consultant is happy with her progress and our [...] minimum of 6 months The most recent [place] [employer] clinical endocrinologists and [employer] guidelines recommend patients who [...] track activity level. Consider using apps like Wim[employer], [employer], lose it, stick as needed for self-monitoring and weight management. Consider group exercises. Consider hiring a health and safety trainer. Regular exercise is uribe to sustainable [...] counseling and psychiatry and Dr Vallecillo at [facility]. We would like to cover regular topics [...] and direct typing Please excuse inadvertent director special education or typing errors, or uncorrected word substitutions Although every attempt has been made by the provider to proofread this document, occasional misspellings and typographical errors may still be present Due to the previous pandemic, and the use of personal protective equipment (PPE) This may decrease voice recognition accuracy Inadvertent director special education errors may occur 04/08/2024 Pure hypercholesterolemia (ICD-10 - E78.00) #Weight Management 04/08/2024 Her databases computer consultant is happy with her progress and our [...] minimum of 6 months The most recent [place] [employer] clinical endocrinologists and [employer] end[employer] guidelines recommend patients who [...] track activity level. Consider using apps like Wimba, [employer], lose it, stick as needed for self-monitoring and weight management. Consider group exercises. Consider hiring a health and safety trainer. Regular exercise is uribe to sustainable [...] counseling and psychiatry and Dr Vallecillo at [facility]. We would like to cover regular topics [...] and direct typing Please excuse inadvertent director special education or typing errors, or uncorrected word substitutions Although every attempt has been made by the provider to proofread this document, occasional misspellings and typographical errors may still be present Due to the previous pandemic, and the use of personal protective equipment (PPE) This may decrease voice recognition accuracy Inadvertent director special education errors may occur 03/18/2024 Pure hypercholesterolemia (ICD-10 - E78.00) #Weight Management 03/18/2024 Her databases computer consultant is happy with her progress and our [...] minimum of 6 months The most recent [place] [employer] of clinical endocrinologists and [employer] end[employer]inology guidelines recommend patients who [...] track activity level. Consider using apps like Wimba, [employer], lose it, stick as needed for self-monitoring and weight management. Consider group exercises. Consider hiring a health and safety trainer. Regular exercise is uribe to sustainable [...] counseling and psychiatry and Dr Vallecillo at [facility]. We would like to cover regular topics [...] and direct typing Please excuse inadvertent director special education or typing errors, or uncorrected word substitutions Although every attempt has been made by the provider to proofread this document, occasional misspellings and typographical errors may still be present Due to the previous pandemic, and the use of personal protective equipment (PPE) This may decrease voice recognition accuracy Inadvertent director special education errors may occur 01/29/2024 Pure hypercholesterolemia (ICD-10 - E78.00) #Weight Management 01/29/2024 Her databases computer consultant is happy with her progress and our [...] minimum of 6 months The most recent [place] [employer] of clinical endocrinologists and [employer] end[employer]inology guidelines recommend patients who [...] track activity level. Consider using apps like [employer], myfitnesspal, lose it, stick as needed for self-monitoring and weight management. Consider group exercises. Consider hiring a health and safety trainer. Regular exercise is uribe to sustainable [...] counseling and psychiatry and Dr Vallecillo at [facility]. We would like to cover regular topics [...] and direct typing Please excuse inadvertent director special education or typing errors, or uncorrected word substitutions Although every attempt has been made by the provider to proofread this document, occasional misspellings and typographical errors may still be present Due to the previous pandemic, and the use of personal protective equipment (PPE) This may decrease voice recognition accuracy Inadvertent director special education errors may occur 01/29/2024 Type 2 diabetes mellitus without complications (ICD-10 - E11.9) #Weight Management 01/29/2024 Her databases computer consultant is happy with her progress and our [...] minimum of 6 months The most recent [place] [employer] of clinical endocrinologists and [employer] end[employer]in[employer] guidelines recommend patients who [...] track activity level. Consider using apps like Wimba, [employer]pal, lose it, stick as needed for self-monitoring and weight management. Consider group exercises. Consider hiring a health and safety trainer. Regular exercise is uribe to sustainable [...] counseling and psychiatry and Dr Vallecillo at [facility]. We would like to cover regular topics [...] and direct typing Please excuse inadvertent director special education or typing errors, or uncorrected word substitutions Although every attempt has been made by the provider to proofread this document, occasional misspellings and typographical errors may still be present Due to the previous pandemic, and the use of personal protective equipment (PPE) This may decrease voice recognition accuracy Inadvertent director special education errors may occur 03/18/2024 Type 2 diabetes mellitus without complications (ICD-10 - E11.9) #Weight Management 03/18/2024 Her databases computer consultant is happy with her progress and our [...] minimum of 6 months The most recent [place] [employer] of clinical endocrinologists and [employer] end[employer]inology guidelines recommend patients who [...] track activity level. Consider using apps like Wimba, [employer], lose it, stick as needed for self-monitoring and weight management. Consider group exercises. Consider hiring a health and safety trainer. Regular exercise is uribe to sustainable [...] counseling and psychiatry and Dr Vallecillo at [facility]. We would like to cover regular topics [...] and direct typing Please excuse inadvertent director special education or typing errors, or uncorrected word substitutions Although every attempt has been made by the provider to proofread this document, occasional misspellings and typographical errors may still be present Due to the previous pandemic, and the use of personal protective equipment (PPE) This may decrease voice recognition accuracy Inadvertent director special education errors may occur 04/08/2024 Type 2 diabetes mellitus without complications (ICD-10 - E11.9) #Weight Management 04/08/2024 Her databases computer consultant is happy with her progress and our [...] minimum of 6 months The most recent [place] [employer] of clinical endocrinologists and [employer] end[employer]inology guidelines recommend patients who [...] track activity level. Consider using apps like Wimba, [employer], lose it, stick as needed for self-monitoring and weight management. Consider group exercises. Consider hiring a health and safety trainer. Regular exercise is uribe to sustainable [...] counseling and psychiatry and Dr Vallecillo at [facility]. We would like to cover regular topics [...] and direct typing Please excuse inadvertent director special education or typing errors, or uncorrected word substitutions Although every attempt has been made by the provider to proofread this document, occasional misspellings and typographical errors may still be present Due to the previous pandemic, and the use of personal protective equipment (PPE) This may decrease voice recognition accuracy Inadvertent director special education errors may occur 04/08/2024 Other obesity due to excess calories (ICD-10 - E66.09) #Weight Management 04/08/2024 Her databases computer consultant is happy with her progress and our [...] minimum of 6 months The most recent [place] [employer] of clinical endocrinologists and [employer] end[employer]inology guidelines recommend patients who [...] track activity level. Consider using apps like Wimba, [employer], lose it, stick as needed for self-monitoring and weight management. Consider group exercises. Consider hiring a health and safety trainer. Regular exercise is uribe to sustainable [...] counseling and psychiatry and Dr Vallecillo at [facility]. We would like to cover regular topics [...] and direct typing Please excuse inadvertent director special education or typing errors, or uncorrected word substitutions Although every attempt has been made by the provider to proofread this document, occasional misspellings and typographical errors may still be present Due to the previous pandemic, and the use of personal protective equipment (PPE) This may decrease voice recognition accuracy Inadvertent director special education errors may occur 03/18/2024 Other obesity due to excess calories (ICD-10 - E66.09) #Weight Management 03/18/2024 Her databases computer consultant is happy with her progress and our [...] minimum of 6 months The most recent [place] [employer] of clinical endocrinologists and [employer] end[employer]inology guidelines recommend patients who [...] track activity level. Consider using apps like Wimba, [employer], lose it, stick as needed for self-monitoring and weight management. Consider group exercises. Consider hiring a health and safety trainer. Regular exercise is uribe to sustainable [...] counseling and psychiatry and Dr Vallecillo at [facility]. We would like to cover regular topics [...] and direct typing Please excuse inadvertent director special education or typing errors, or uncorrected word substitutions Although every attempt has been made by the provider to proofread this document, occasional misspellings and typographical errors may still be present Due to the previous pandemic, and the use of personal protective equipment (PPE) This may decrease voice recognition accuracy Inadvertent director special education errors may occur 01/29/2024 Other obesity due to excess calories (ICD-10 - E66.09) #Weight Management 01/29/2024 Her databases computer consultant is happy with her progress and our [...] minimum of 6 months The most recent [place] [employer] of clinical endocrinologists and [employer] end[employer]inology guidelines recommend patients who [...] track activity level. Consider using apps like Wimba, [employer], lose it, stick as needed for self-monitoring and weight management. Consider group exercises. Consider hiring a health and safety trainer. Regular exercise is uribe to sustainable [...] counseling and psychiatry and Dr Vallecillo at [facility]. We would like to cover regular topics [...] and direct typing Please excuse inadvertent director special education or typing errors, or uncorrected word substitutions Although every attempt has been made by the provider to proofread this document, occasional misspellings and typographical errors may still be present Due to the previous pandemic, and the use of personal protective equipment (PPE) This may decrease voice recognition accuracy Inadvertent director special education errors may occur 01/29/2024 Body mass index [BMI ] 38.0-38.9, adult (ICD-10 - Z68.38) #Weight Management 01/29/2024 Her databases computer consultant is happy with her progress and our [...] minimum of 6 months The most recent [place] [employer] of clinical endocrinologists and [employer] end[employer]inology guidelines recommend patients who [...] track activity level. Consider using apps like Wimba, [employer], lose it, stick as needed for self-monitoring and weight management. Consider group exercises. Consider hiring a health and safety trainer. Regular exercise is uribe to sustainable [...] counseling and psychiatry and Dr Vallecillo at [facility]. We would like to cover regular topics [...] and direct typing Please excuse inadvertent director special education or typing errors, or uncorrected word substitutions Although every attempt has been made by the provider to proofread this document, occasional misspellings and typographical errors may still be present Due to the previous pandemic, and the use of personal protective equipment (PPE) This may decrease voice recognition accuracy Inadvertent director special education errors may occur 03/18/2024 Body mass index [BMI ] 38.0-38.9, adult (ICD-10 - Z68.38) #Weight Management 03/18/2024 Her databases computer consultant is happy with her progress and our [...] minimum of 6 months The most recent [place] [employer] of clinical endocrinologists and [employer] end[employer]inology guidelines recommend patients who [...] track activity level. Consider using apps like Wimba, [employer], lose it, stick as needed for self-monitoring and weight management. Consider group exercises. Consider hiring a health and safety trainer. Regular exercise is uribe to sustainable [...] counseling and psychiatry and Dr Vallecillo at [facility]. We would like to cover regular topics [...] and direct typing Please excuse inadvertent director special education or typing errors, or uncorrected word substitutions Although every attempt has been made by the provider to proofread this document, occasional misspellings and typographical errors may still be present Due to the previous pandemic, and the use of personal protective equipment (PPE) This may decrease voice recognition accuracy Inadvertent director special education errors may occur 04/08/2024 Body mass index [BMI ] 38.0-38.9, adult (ICD-10 - Z68.38) #Weight Management 04/08/2024 Her databases computer consultant is happy with her progress and our [...] minimum of 6 months The most recent [place] [employer] of clinical endocrinologists and [employer] end[employer]inology guidelines recommend patients who [...] track activity level. Consider using apps like [employer], [employer], lose it, stick as needed for self-monitoring and weight management. Consider group exercises. Consider hiring a health and safety trainer. Regular exercise is uribe to sustainable [...] counseling and psychiatry and Dr Vallecillo at [facility]. We would like to cover regular topics [...] and direct typing Please excuse inadvertent director special education or typing errors, or uncorrected word substitutions Although every attempt has been made by the provider to proofread this document, occasional misspellings and typographical errors may still be present Due to the previous pandemic, and the use of personal protective equipment (PPE) This may decrease voice recognition accuracy Inadvertent director special education errors may occur 04/08/2024 Dietary counseling a nd surveillance (ICD-10 - Z71.3) #Weight Management 04/08/2024 Her databases computer consultant is happy with her progress and our [...] minimum of 6 months The most recent [place] [employer] of clinical endocrinologists and [employer]inology guidelines recommend patients who [...] track activity level. Consider using apps like Wimba, [employer]fitnesspal, lose it, stick as needed for self-monitoring and weight management. Consider group exercises. Consider hiring a health and safety trainer. Regular exercise is uribe to sustainable [...] counseling and psychiatry and Dr Vallecillo at [facility]. We would like to cover regular topics [...] and direct typing Please excuse inadvertent director special education or typing errors, or uncorrected word substitutions Although every attempt has been made by the provider to proofread this document, occasional misspellings and typographical errors may still be present Due to the previous pandemic, and the use of personal protective equipment (PPE) This may decrease voice recognition accuracy Inadvertent director special education errors may occur PLAN OF TREATMENT No Information Insurance Providers Payer Name Payer Address Payer Phone Subscriber Number Group Number Insured Name Patient Relationship to Insured Coverage Start Date Coverage End Date [place] [address] [address] [place] [address] [id number] Vonnie Sorto Self - patient is the insured MEDICAL (GENERAL) HISTORY Medical History History ICD Code hypertension type II diabetes hyperlipidemia asthma headache anxiety Hospitalization History Reason Date(Month/Year) asthma 07/19/2022
--- OUTSIDE RECORDS SUMMARY | 2025-01-20 09:07 | XMS_ITS ---
Author Organization [facility] Address [address] [place] [address] Care Team Providers Care Dispatcher Radio Name Role Phone SID REYES Unavailable [phone] REASON FOR VISIT appt/ cx Encounters Encounter Location Date Provider Diagnosis [address] [address] 04/07/2024 SID REYES PLAN OF TREATMENT No Information Progress Notes * Verito SORTOsDOB: 3 (48 yo F)Acc No.[id number]:04/07/2024 Patient:??Vonnie SORTO :1975?Age:48 Y?Sex:Fe male Address:[address] [place] [address] * true * Date:??
--- OUTSIDE RECORDS SUMMARY | 2025-01-20 09:07 | XMS_ITS ---
Author Organization [facility] Address [address] [place] [address] [address] [place] [address] Care Team Providers Care Nutrient Management Specialist Name Role Phone LEONARDO AMARAL, JOSEF Primary Care Provider Opal Monroe Unavailable [phone] Allergies Allergen (clinical drug ingredient) Drug/Non Drug Allergy documented on EMR Reaction Allergy Type Onset Date Status metformin Metformin HCl Diarrhea Drug Allergy Act cisco liraglutide Victoza Skin Rash Drug Allergy Activ e Lysteda Eye Redness Drug Allergy Activ e REASON FOR VISIT Annual (YELLOW FORM DONE) Encounters Encounter Location Date Provider Diagnosis [facility] [address] [place] [address] 03/22/2024 Opal Aguirre Plan Of Treatment Next Appt Details Provider Name:Opal story, 06/27/2025 09:40:00 AM, [address] [place] [address], [address], [place], [address], Progress Notes * PATRICK DILLONSDOB: 3 (49 yo F)Acc No.[id number]:03/22/2024 PROGRESS NOTES Patient:?YESSENIA DILLON Appointment Provider:?Opal story M.D. :1975???Age:48 Y???Sex:Female D ate:03/22/2024 Address:[address] [place] [address], [facility] Pcp:JOSEF PATTERSON MD Subjective: * Chief Complaints: [...] on cytologic smear of cervix (ASC-H). 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 repeat in 3-6 months [facility]. ordered by PCP.?Abnormal Pap Smear:?yes, 05/23/21 LEEP FARAZ I, 04/24/21 Vista FARAZ II, positive HRHPV in 2006.?LMP and [...] Electronic signature of Aneudy Aguirre MD on 01/20/2025 at 09:07 AM EST Sign off status: Pending * Appointment Provider:?Opal Aguirre M.D. Date:?03/22/2024 Generated for Jaime sinha/Christina/Mirian on:?01/20/2025 09:07 AM EST
--- OUTSIDE RECORDS SUMMARY | 2025-01-20 09:07 | XMS_ITS | Patient Health Record ---
Author Organization [facility] Address [address] [place] [address] Care Team Providers Care [employer] Superintendent [employer] Name Role Phone LEONARDO AMARAL, JOSEF Primary Care Provider Opal Monroe Unavailable [phone] Allergies Allergen (clinical drug ingredient) Drug/Non Drug Allergy documented on EMR Reaction Allergy Type Onset Date Status metformin Metformin HCl Diarrhea Drug Allergy Act cisco liraglutide Victoza Skin Rash Drug Allergy Activ e Lysteda Eye Redness Drug Allergy Activ e Results Component Value Reference Range Notes [id number] IGP No Culture 30 Plus Reviewed date:06/28/2024 06:57:35 PM Interpretation: Performing Lab:[facility] [place], [address], [address], [place], Phone - [phone], Director - [facility] Notes/Report: Clinical Information:[id number] LMP / Prev Treat...FTV=[id number] Dates / Results....03/19/23 NIL NEGHPV No. of containers..01 ThinPrep Vial DIAGNOSIS: NEGATIVE FOR IN TRAEPITHELIAL LESION OR MALIGNANCY. Specimen adequacy: Satisfactory for evaluation. Endocervical and/or squamous metaplastic cells (endocervical component) are present. Clinician provided ICD10: Z1 2.31 Performed by: Jose Kuhn , Boiler Operators Supervisor (ASCP) . . Note: The Pap smear [...] Guillermina Sun, [address], [place], Phone - [phone], Director - [facility] Notes/Report: Clinical Information:[id number] LMP / Prev Treat...MGG=[id number] Dates / Results....03/19/23 NIL NEGHPV No. of [...] test positive, high risk on vaginal specimen (110026964523092) Cervical high risk human papillomavirus (HPV) DNA test positive (R87.810) Active confirmed Problem Vitamin D deficiency (20854371) Vitamin D deficiency, unspecified (E55.9) Active confirmed Problem Moderate cervical dysplasia (825194483) Moderate cervical dysplasia (N87.1) Active confirmed Problem Morbid obesity (disorder) (112889000) Morbid (severe) obesity due to excess calories (E66.01) Active confirmed Problem Amenorrhea (55454373) Amenorrhea, unspecified (N91.2) Active confirmed Problem Oligomenorrhea (66643324) Oligomenorrhea, unspecified (N91.5) Active confirmed Problem Abnormal vaginal bleeding (212028480) Other specified abnormal uterine and vaginal bleeding (N93.8) Active confirmed Problem Functional urinary incontinence (541974449) Functional urinary incontinence (R39.81) Active confirmed Problem History of dysplasia of cervix (746201078) Personal history of cervical dysplasia (Z87.410) Active confirmed Problem Type II diabetes mellitus without complication (579706347) Diabetes mellitus without mention of complication, type II or unspecified type, not stated as uncontrolled (250.00) Active confirmed Major Problem Benign essential hypertension (2223488) Essential hypertension, benign (401.1) Active confirmed Major Problem Vulvovaginitis (disorder) (51724146) Unspecified vaginitis and vulvovaginitis (616.10) Active confirmed Diag Problem Asthma (disorder) (504342026) Asthma, unspecified, unspecified status (493.90) Active confirmed Major Problem Absence of menstruation (84066308) Absence of menstruation (626.0) Active confirmed Diag Problem Gynecological examination normal (833962440532458) Routine gynecological examination (V72.31) Active confirmed Major Vital Signs Temperature 98.0 degrees Fahrenheit 06/23/2024 Blood pressure diastolic 82 mm Hg 06/23/2024 Height 66.25 in 06/23/2024 Blood pressure systolic 122 mm Hg 06/23/2024 Weight 226 lbs 06/23/2024 BMI 36.2 kg/m2 06/23/2024 Encounters Encounter Location Date Provider Diagnosis [facility] [address] [place] [address] 03/22/2024 Opal Aguirre Total [address] [place] [address] 06/23/2024 Opal Aguirre Encounter for gynecological examination (general) (routine) without abnormal findings Z01.419 ; Encounter for screening mammogram for malignant neoplasm of breast Z12.31 ; Encounter for routine checking of intrauterine contraceptive device Z30.431 and Personal history of cervical dysplasia Z87.[address] [place] [address] 06/12/2024 Opal Aguirre Assessments Encounter Date Diagnosis [...] 11/01/2021 Urine Culture and Sensitivity 11/05/2021 Urinalysis 04/12/2021 Urinalysis 12/09/2019 Urinalysis 12/03/2018 1,25OH VITAMIN D 10/18/2019 25OH VITAMIN D 01/08/2018 25OH VITAMIN D 10/03/2019 25OH VITAMIN D 12/01/2017 COMPLETE BLOOD COUNT 06/13/2021 COMPLETE BLOOD COUNT 06/21/2021 COMPLETE CBC WITH DIFF 10/02/2017 COMPLETE CBC WITH DIFF 10/16/2017 COMPLETE URINALYSIS 10/03/2019 COMPLETE URINALYSIS 05/23/2021 COMPLETE URINALYSIS 12/09/2019 COMPLETE URINALYSIS 10/06/2019 DHEA [...] Name:Opal Mejia jez, 06/27/2025 09:40:00 AM, [address], [address], [place], [address], Insurance Providers Payer Name Payer Address Payer Phone Subscriber Number Group Number Insured Name Patient Relationship to Insured Coverage Start Date Coverage End Date [employer] [address] [address] [place] [address] [id number] YESSENIA DILLON Self - patient is [...]
--- OUTSIDE RECORDS SUMMARY | 2025-01-20 09:07 | XMS_ITS ---
Author Organization [facility] [employer] Address [address] [place] [address] Care Team Providers Care Clinical Coordinator Name Role Phone MAYRASID CALLOWAY Unavailable [phone] REASON FOR VISIT Flu like symptoms unable to come in seeing her pcp MEDICATIONS Medication SIG (Take, Route, Fr equency, Duration) Notes Start Date End Date Status Mounjaro 12.5 MG/0.5ML 12.5mg Subcutaneo us weekly for 30 days Active Encounters Encounter Location Date Provider Diagnosis [facility] [address] [address] 03/18/2024 SID REYES Essential (primary) hypertension I10 ; Pure hypercholesterolemia E78.00 ; Type 2 diabetes mellitus without complications E11.9 ; Other obesity due to excess calories E66.09 and Body mass index [BMI] 38.0-38.9, adult Z68.38 ASSESSMENTS Encounter Date Diagnosis Assessment Notes Treatment Notes Treatment Clinical Notes Section Notes 03/18/2024 Essential (primary) hypertension (ICD-10 - I10) #Weight Management 03/18/2024 Her cold roll packer sheet iron is happy with her progress and our [...] minimum of 6 months The most recent [place] Association of clinical endocrinologists and [place] [employer] of endocrinology guidelines recommend patients who [...] track activity level. Consider using apps like [employer] mion[employer]Data excercise, myfitnesspal, lose it, stick as needed for self-monitoring and weight management. Consider group exercises. Consider hiring a personal fitness manager. Regular exercise is uribe to sustainable health [...] counseling and psychiatry and Dr Vallecillo at [employer]. We would like to cover regular [...] software and direct typing Please excuse inadvertent duct cleaner or typing errors, or uncorrected word substitutions Although every attempt has been made by the provider to proofread this document, occasional misspellings and typographical errors may still be present Due to the previous pandemic, and the use of personal protective equipment (PPE) This may decrease voice recognition accuracy Inadvertent duct cleaner errors may occur 03/18/2024 Pure hypercholesterolemia (ICD-10 - E78.00) #Weight Management 03/18/2024 Her cold roll packer sheet iron is happy with her progress and our [...] minimum of 6 months The most recent [place] Association of clinical endocrinologists and [place] [employer] of endocrinology guidelines recommend patients who [...] Consider group exercises. Consider hiring a personal fitness manager. Regular exercise is uribe to sustainable health [...] counseling and psychiatry and Dr Vallecillo at [facility] [employer]. We would like to cover regular [...] software and direct typing Please excuse inadvertent duct cleaner or typing errors, or uncorrected word substitutions Although every attempt has been made by the provider to proofread this document, occasional misspellings and typographical errors may still be present Due to the previous pandemic, and the use of personal protective equipment (PPE) This may decrease voice recognition accuracy Inadvertent duct cleaner errors may occur 03/18/2024 Type 2 diabetes mellitus without complications (ICD-10 - E11.9) #Weight Management 03/18/2024 Her cold roll packer sheet iron is happy with her progress and our [...] minimum of 6 months The most recent [place] Association of clinical endocrinologists and [place] [employer] of endocrinology guidelines recommend patients who [...] track activity level. Consider using apps like [employer], ThrowMotionpal, lose it, stick as needed for self-monitoring and weight management. Consider group exercises. Consider hiring a personal fitness manager. Regular exercise is uribe to sustainable health [...] counseling and psychiatry and Dr Vallecillo at [facility] [employer]. We would like to cover regular [...] software and direct typing Please excuse inadvertent duct cleaner or typing errors, or uncorrected word substitutions Although every attempt has been made by the provider to proofread this document, occasional misspellings and typographical errors may still be present Due to the previous pandemic, and the use of personal protective equipment (PPE) This may decrease voice recognition accuracy Inadvertent duct cleaner errors may occur 03/18/2024 Other obesity due to excess calories (ICD-10 - E66.09) #Weight Management 03/18/2024 Her cold roll packer sheet iron is happy with her progress and our [...] minimum of 6 months The most recent [place] Association of clinical endocrinologists and [place] [employer] of endocrinology guidelines recommend patients who [...] track activity level. Consider using apps like Consert, myfitS4 Worldwidepal, lose it, stick as needed for self-monitoring and weight management. Consider group exercises. Consider hiring a personal fitness manager. Regular exercise is uribe to sustainable health [...] counseling and psychiatry and Dr Vallecillo at [facility] [employer]. We would like to cover regular [...] software and direct typing Please excuse inadvertent duct cleaner or typing errors, or uncorrected word substitutions Although every attempt has been made by the provider to proofread this document, occasional misspellings and typographical errors may still be present Due to the previous pandemic, and the use of personal protective equipment (PPE) This may decrease voice recognition accuracy Inadvertent duct cleaner errors may occur 03/18/2024 Body mass index [BMI ] 38.0-38.9, adult (ICD-10 - Z68.38) #Weight Management 03/18/2024 Her cold roll packer sheet iron is happy with her progress and our [...] minimum of 6 months The most recent [place] Association of clinical endocrinologists and [place] [employer] of endocrinology guidelines recommend patients who [...] track activity level. Consider using apps like Consert, ThrowMotionpal, lose it, stick as needed for self-monitoring and weight management. Consider group exercises. Consider hiring a personal fitness manager. Regular exercise is uribe to sustainable health [...] counseling and psychiatry and Dr Vallecillo at [facility] [employer] [employer]. We would like to cover regular [...] software and direct typing Please excuse inadvertent duct cleaner or typing errors, or uncorrected word substitutions Although every attempt has been made by the provider to proofread this document, occasional misspellings and typographical errors may still be present Due to the previous pandemic, and the use of personal protective equipment (PPE) This may decrease voice recognition accuracy Inadvertent duct cleaner errors may occur PLAN OF TREATMENT Medication Medication Name Sig Start Date Stop Date Notes Mounjaro 12.5 MG/0.5ML 12.5mg Subcutaneo us weekly for 30 days Progress Notes * Verito SORTOsDOB: 3 (49 yo F)Acc No.[id number]:03/18/2024 Patient:??Vonnie SORTO Provider:??SID REYES NP :1975?Age:48 Y?Sex:Fe male Date:03/18/2024 Address:[address] [place], [place] [id number] Subjective: * Chief Complaints: * ?1. Flu [...] and she is happy with this. ?Her cold roll packer sheet iron is happy with her progress and our [...] adult - Z68.38?? #Weight Management 03/18/2024 Her cold roll packer sheet iron is happy with her progress and our [...] minimum of 6 months The most recent [place] Association of clinical endocrinologists and [place] College of endocrinology guidelines recommend patients who [...] track activity level. Consider using apps like Consert, ThrowMotionpal, lose it, stick as needed for self-monitoring and weight management. Consider group exercises. Consider hiring a personal fitness manager. Regular exercise is uribe to sustainable health [...] counseling and psychiatry and Dr Vallecillo at [employer]. We would like to cover regular [...] software and direct typing Please excuse inadvertent duct cleaner or typing errors, or uncorrected word substitutions Although every attempt has been made by the provider to proofread this document, occasional misspellings and typographical errors may still be present Due to the previous pandemic, and the use of personal protective equipment (PPE) This may decrease voice recognition accuracy Inadvertent duct cleaner errors may occur. Plan: * Treatment: * [...] and she is happy with this. Her cold roll packer sheet iron is happy with her progress and our [...]
--- OUTSIDE RECORDS SUMMARY | 2025-01-20 09:08 | XMS_ITS ---
Author Organization [facility] Address [address] [place] [address] Care Team Providers Care Tea Blender Name Role Phone LEONARDO AMARAL, [facility] Primary Care Provider Opal Monroe [phone] REASON FOR VISIT No showed for March 2024 visit but yellow sheet completed Encounters Encounter Location Date Provider Diagnosis [facility] [address] [place] [address] 06/12/2024 Opal Aguirre Plan Of Treatment Next Appt Details Provider Name:Opal story, 06/27/2025 09:40:00 AM, [address], [address], [place], [address], Progress Notes * PATRICK DILLONSDOB: [birth year] (48 yo F)Acc No.[id number]:06/12/2024 Patient:?YESSENIA DILLON :1975???Age:48 Y???Sex:Female Address:[address] [place] [address], [place], [address] * true * Date:? Generated for Jcarlosi bharath/Christina/eTransmitting on:?01/20/2025 09:07 AM EST
== END 2025-01-20 08:53 | disposition home or self-care (01) ==
LOC: HO.ENCR 08:36
PROVIDERS: PCP Internal Medicine; Visit Provider Physician Assistant
DX: E11.65 Type 2 diabetes mellitus with hyperglycemia (principal); Z79.4 Long term (current) use of insulin; I10 Essential (primary) hypertension

== ENCOUNTER → 2025-01-20 08:36 | Outpatient (BNVA) | payer OTHER, SELFPAY | PROVIDERS: PCP Internal Medicine; Visit Provider Physician Assistant | DX: E11.65 Type 2 diabetes mellitus with hyperglycemia (principal); I10 Essential (primary) hypertension; Z79.4 Long term (current) use of insulin | CPT/HCPCS: 82947 ==

== ENCOUNTER 2025-01-27 08:07 | Outpatient (AMB) | payer OTHER, SELFPAY ==
--- NOTE | 2025-01-27 08:11 | A.OFFVIS_ITS ---
Vital Signs 01/27/25 08:14 Height 5 ft 7 in Weight 222 lb 10.67 oz BMI 34.9 BP 118/74 Blood Pressure Location Rt brachial Position Sitting Pulse 102 H Pulse Source Pulse Oximeter Pulse Oximetry (%) 96 Oxygen Delivery Method Room Air Intake Visit Reasons: dm Intake Note: Patient presents today for a follow-up on Type 2 Diabetes Mellitus: Last Diabetic eye exam was on: 11/2024 Last Podiatry exam was on: Patient does not see a Compressor Operator Most recent HbA1c: 11.1%, 01/16/2025 Random Glucose- 182 mg/dL, Today Botany Laboratory Assistant Required: No Accompanied by: Self / Same As Patient Allergies metronidazole [From Flagyl] Allergy (Severe, Verified 01/20/25 08:42) Anaphylaxis canagliflozin [Invokana] Allergy (Unknown, Verified 01/20/25 08:42) rash liraglutide Allergy (Unknown, Verified 01/20/25 08:42) rash animals Allergy (Unknown, Uncoded 01/20/25 08:42) rash Pt states no known food allerg Allergy (Unknown, Uncoded 01/20/25 08:42) Unknown HPI HPI dm: Details: Patient is a 49-year-old female with a significant past medical history obesity, uncontrolled type 2 diabetes, hypertension, hyperlipidemia, asthma presenting today for a follow-up for diabetes. Endo: Her last A1c was 7.4 and today is 11.1. Her blood sugar in the office is 180. She is currently on Lantus 40 units, Humalog 15 units with food, jardiance and finally, 3 days ago got the PA for mounjaro 10 mg and started it. -No low blood sugars. She states that blood sugars are significantly last 3 days. -does not tolerate metformin GI distress, trulicity caused diarrhea, victoza caused a rash and nausea She is currently down 10 lb with diet and exercise for the last month. She states that she has been drinking a lot of water and urinating more frequently because of the elevated blood sugars. No vision changes, headaches, chest pain or shortness on breath. Reviewed her dexcom- 16% very high, 57% high, 27% in range. 0% hypoglycemic events CV: Blood pressure today in the office is 118/74. Cholesterol is managed with rosuvastatin 40 mg. Reports that there were some compliance issues. Last LDL elevated above goal. No myalgias. 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 Diabetes type 2, uncontrolled Ectopic Hyperlipidemia Hypertension Asthma Surgical History History of esophagogastroduodenoscopy (EGD) Hx of colonoscopy History of surgical procedure on mouth Hx of ectopic Family History Father Diabetes mellitus Stomach cancer Mother Diabetes mellitus Ovarian cancer Paternal Grandfather Colon cancer Paternal Aunt Liver cancer Paternal Aunt Liver cancer Social History Household Members: Family Housing: House Do you presently have visiting nurse or other home services: No Alcohol intake: never Patient Tobacco Use Status: Never used Tobacco Advance Directives Date on File: 07/15/22 service: No Current occupational status: employed Physical Exam Const Orientation/consciousness: patient oriented x3 HEENT Ears: hearing grossly normal bilaterally Neck Thyroid: Thyroid normal Lymphatic: no lymphadenopathy noted Resp Auscultation: clear to auscultation bilaterally Cardio Rate: regular rate Rhythm: regular rhythm Heart sounds: S1 normal heart sound present and S2 normal heart sound present GI Inspection: Yes normal to inspection Palpation (GI): Soft to palpation and Other GI palpation findings present (nontender, no cva tenderness) Auscultation: normoactive bowel sounds Rectal Exam - Female: deferred Skin General skin exam: no rashes or lesions noted Neuro General: patient oriented x3, gait normal and no focal motor deficits Assessment & Plan Assessment & Plan (1) Diabetes type 2, uncontrolled: Code(s): E11.65 - Type 2 diabetes mellitus with hyperglycemia Category: Medical Qualifiers: Glycemic state: with hyperglycemia Qualified Code(s): E11.65 - Type 2 diabetes mellitus with hyperglycemia Plan: We will continue this current regimen as it does appear to be improving. We will do a short term follow up in 6 weeks. Discussed importance of not skipping any insulin doses which has happened a few times in the last couple weeks. We reviewed signs and symptoms of hyperglycemia and hypoglycemia. 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 We will monitor. 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
--- OUTSIDE RECORDS SUMMARY | 2025-01-27 08:12 | XMS_ITS ---
Author Organization [facility] Address [address] [place] [id number] Care Team Providers Care Field Court Researcher Name Role Phone SID REYES Unavailable [phone] MEDICATIONS Medication SIG (Take, Route, Fr equency, Duration) Notes Start Date End Date Status Mounjaro 12.5 MG/0.5ML 12.5mg Subcutaneo us weekly for 30 days Active Encounters Encounter Location Date Provider Diagnosis [place] [address] [address] 04/08/2024 SID REYES Essential (primary) hypertension I10 [...] (ICD-10 - I10) #Weight Management 04/08/2024 Her emergency room rn is happy with her progress and our [...] minimum of 6 months The most recent [place] [employer] of clinical endocrinologists and [place] [employer] of endocrin[employer] guidelines recommend patients who [...] track activity level. Consider using apps like VirtualQube, myfitnesspal, lose it, stick as needed for self-monitoring and weight management. Consider group exercises. Consider hiring a administrative personal assistant. Regular exercise is uribe to sustainable [...] counseling and psychiatry and Dr Vallecillo at [facility]. We would like to cover regular topics [...] software and direct typing Please excuse inadvertent franchise consultant or typing errors, or uncorrected word substitutions Although every attempt has been made by the provider to proofread this document, occasional misspellings and typographical errors may still be present Due to the previous pandemic, and the use of personal protective equipment (PPE) This may decrease voice recognition accuracy Inadvertent franchise consultant errors may occur 04/08/2024 Pure hypercholesterolemia (ICD-10 - E78.00) #Weight Management 04/08/2024 Her emergency room rn is happy with her progress and our [...] minimum of 6 months The most recent [place] [employer] of clinical endocrinologists and [place] [employer] of endocrinology guidelines recommend patients who [...] management. Consider group exercises. Consider hiring a administrative personal assistant. Regular exercise is uribe to sustainable [...] counseling and psychiatry and Dr Vallecillo at [facility]. We would like to cover regular topics [...] software and direct typing Please excuse inadvertent franchise consultant or typing errors, or uncorrected word substitutions Although every attempt has been made by the provider to proofread this document, occasional misspellings and typographical errors may still be present Due to the previous pandemic, and the use of personal protective equipment (PPE) This may decrease voice recognition accuracy Inadvertent franchise consultant errors may occur 04/08/2024 Type 2 diabetes mellitus without complications (ICD-10 - E11.9) #Weight Management 04/08/2024 Her emergency room rn is happy with her progress and our [...] minimum of 6 months The most recent [place] [employer] of clinical endocrinologists and [place] [employer] endocrinology guidelines recommend patients who [...] track activity level. Consider using apps like VirtualQube, A+ NetworkfitTriventuspal, lose it, stick as needed for self-monitoring and weight management. Consider group exercises. Consider hiring a administrative personal assistant. Regular exercise is uribe to sustainable [...] counseling and psychiatry and Dr Vallecillo at [facility]. We would like to cover regular topics [...] software and direct typing Please excuse inadvertent franchise consultant or typing errors, or uncorrected word substitutions Although every attempt has been made by the provider to proofread this document, occasional misspellings and typographical errors may still be present Due to the previous pandemic, and the use of personal protective equipment (PPE) This may decrease voice recognition accuracy Inadvertent franchise consultant errors may occur 04/08/2024 Other obesity due to excess calories (ICD-10 - E66.09) #Weight Management 04/08/2024 Her emergency room rn is happy with her progress and our [...] minimum of 6 months The most recent [place] [employer] of clinical endocrinologists and [place] [employer] of endocrinology guidelines recommend patients who [...] track activity level. Consider using apps like Akvolutionise, myfitTriventuspal, lose it, stick as needed for self-monitoring and weight management. Consider group exercises. Consider hiring a administrative personal assistant. Regular exercise is uribe to sustainable [...] counseling and psychiatry and Dr Vallecillo at [facility]. We would like to cover regular topics [...] software and direct typing Please excuse inadvertent franchise consultant or typing errors, or uncorrected word substitutions Although every attempt has been made by the provider to proofread this document, occasional misspellings and typographical errors may still be present Due to the previous pandemic, and the use of personal protective equipment (PPE) This may decrease voice recognition accuracy Inadvertent franchise consultant errors may occur 04/08/2024 Body mass index [BMI ] 38.0-38.9, adult (ICD-10 - Z68.38) #Weight Management 04/08/2024 Her emergency room rn is happy with her progress and our [...] minimum of 6 months The most recent [place] [employer] of clinical endocrinologists and [place] [employer] of endocrinology guidelines recommend patients who [...] track activity level. Consider using apps like VirtualQube, Hot Potatopal, lose it, stick as needed for self-monitoring and weight management. Consider group exercises. Consider hiring a administrative personal assistant. Regular exercise is uribe to sustainable [...] counseling and psychiatry and Dr Vallecillo at [facility]. We would like to cover regular topics [...] software and direct typing Please excuse inadvertent franchise consultant or typing errors, or uncorrected word substitutions Although every attempt has been made by the provider to proofread this document, occasional misspellings and typographical errors may still be present Due to the previous pandemic, and the use of personal protective equipment (PPE) This may decrease voice recognition accuracy Inadvertent franchise consultant errors may occur 04/08/2024 Dietary counseling a nd surveillance (ICD-10 - Z71.3) #Weight Management 04/08/2024 Her emergency room rn is happy with her progress and our [...] minimum of 6 months The most recent [place] [employer] of clinical endocrinologists and [place] [employer] of endocrinology guidelines recommend patients who [...] track activity level. Consider using apps like VirtualQube, Hot Potatopal, lose it, stick as needed for self-monitoring and weight management. Consider group exercises. Consider hiring a administrative personal assistant. Regular exercise is uribe to sustainable [...] counseling and psychiatry and Dr Vallecillo at [facility]. We would like to cover regular topics [...] software and direct typing Please excuse inadvertent franchise consultant or typing errors, or uncorrected word substitutions Although every attempt has been made by the provider to proofread this document, occasional misspellings and typographical errors may still be present Due to the previous pandemic, and the use of personal protective equipment (PPE) This may decrease voice recognition accuracy Inadvertent franchise consultant errors may occur PLAN OF TREATMENT Medication Medication Name Sig Start Date Stop Date Notes Mounjaro 12.5 MG/0.5ML 12.5mg Subcutaneo us weekly for 30 days Progress Notes * Verito SORTOsDOB: 3 (49 yo F)Acc No.[id number]:04/08/2024 Patient:??Vonnie SORTO Provider:??SID REYES NP :1975?Age:48 Y?Sex:Fe male Date:04/08/2024 Address:[address] [place] [id number] Subjective: * Chief Complaints: * ? * [...] and she is happy with this. ?Her emergency room rn is happy with her progress and our [...] surveillance - Z71.3?? #Weight Management 04/08/2024 Her emergency room rn is happy with her progress and our [...] minimum of 6 months The most recent [place] [employer] of clinical endocrinologists and [place] [employer] of endocrinology guidelines recommend patients who [...] track activity level. Consider using apps like VirtualQube, Hot Potatopal, lose it, stick as needed for self-monitoring and weight management. Consider group exercises. Consider hiring a administrative personal assistant. Regular exercise is uribe to sustainable [...] counseling and psychiatry and Dr Vallecillo at [facility]. We would like to cover regular topics [...] software and direct typing Please excuse inadvertent franchise consultant or typing errors, or uncorrected word substitutions Although every attempt has been made by the provider to proofread this document, occasional misspellings and typographical errors may still be present Due to the previous pandemic, and the use of personal protective equipment (PPE) This may decrease voice recognition accuracy Inadvertent franchise consultant errors may occur. Plan: * Treatment: * [...] and she is happy with this. Her emergency room rn is happy with her progress and our [...] General Examination GENERAL APPEARANCE: in no ac cachil dehe distress, well developed, well nourished HEAD: normocephalic, [...]
--- OUTSIDE RECORDS SUMMARY | 2025-01-27 08:13 | XMS_ITS ---
Author Organization [facility] Address [address] [place] [address] [address] [place] [address] Care Team Providers Care Exhibition Organiser Name Role Phone LEONARDO AMARAL, JOSEF Primary Care Provider Opal Monroe Unavailable [phone] Allergies Allergen (clinical drug ingredient) Drug/Non Drug Allergy documented on EMR Reaction Allergy Type Onset Date Status metformin Metformin HCl Diarrhea Drug Allergy Act cisco liraglutide Victoza Skin Rash Drug Allergy Activ e Lysteda Eye Redness Drug Allergy Activ e REASON FOR VISIT Annual (YELLOW FORM DONE) Encounters Encounter Location Date Provider Diagnosis [facility] [address] [place] [id number] 03/22/2024 Opal Aguirre Plan Of Treatment Next Appt Details Provider Name:Opal story, 06/27/2025 09:40:00 AM, [address] [place] [address], [address], [place], [address], Progress Notes * PATRICK DILLONSDOB: [birth year] (49 yo F)Acc No.[id number]:03/22/2024 PROGRESS NOTES Patient:?YESSENIA DILLON Appointment Provider:?Opal story M.D. :1975???Age:48 Y???Sex:Female D ate:03/22/2024 Address:[address] [place] [address], [facility] Pcp:JOSEF PATTERSON MD Subjective: * Chief Complaints: [...] on cytologic smear of cervix (ASC-H). * Circus Laborer History:?/ Para?2/2.?Sexual activity?Not currently sexually active x1yr.?Last Pap Smear:?03/19/23 NIL, NEG HPV, 04/12/21 ASC-H, POS HRHPV, 12/01/17 NEG HRHPV, 02/04/13, neg.?Mammogram:?02/15/21 < 50% density, 01/2020, 11/17/18 < 50% density, Bilateral Mammo with f/u Lt Breast. repeat in 3-6 months [facility]. ordered by PCP.?Abnormal Pap Smear:?yes, 05/23/21 [place] FARAZ I, 04/24/21 [place] FARAZ II, positive HRHPV in 2006.?LMP and [...] Electronic signature of Aneudy Aguirre MD on 01/27/2025 at 08:13 AM EDT Sign off status: Pending * Appointment Provider:?Opal Aguirre M.D. Date:?03/22/2024 Generated for Jaime sinha/Christina/Mirian on:?01/27/2025 08:13 AM EDT
--- OUTSIDE RECORDS SUMMARY | 2025-01-27 08:13 | XMS_ITS ---
Author Organization [facility] Address [address] [place] [address] Care Team Providers Care Chopping Machine Operator Name Role Phone LEONARDO AMARAL, [facility] Primary Care Provider Opal Monroe Unavailable [phone] Allergies Allergen (clinical drug ingredient) Drug/Non Drug Allergy documented on EMR Reaction Allergy Type Onset Date Status metformin Metformin HCl Diarrhea Drug Allergy Act cisco liraglutide Victoza Skin Rash Drug Allergy Activ e Lysteda Eye Redness Drug Allergy Activ e Results Component Value Reference Range Notes [id number] IGP No Culture 30 Plus Reviewed date:06/28/2024 06:57:35 PM Interpretation: Performing Lab:[facility], [address], [address], [place], Phone - [phone], Director - [facility] Notes/Report: Clinical Information:[id number] LMP / Prev Treat...AEG=[id number] Dates / Results....03/19/23 NIL NEGHPV No. of containers..01 ThinPrep Vial DIAGNOSIS: NEGATIVE FOR IN TRAEPITHELIAL LESION OR MALIGNANCY. Specimen adequacy: Satisfactory for evaluation. Endocervical and/or squamous metaplastic cells (endocervical component) are present. Clinician provided ICD10: Z1 2.31 Performed by: Jose Kuhn , Harvesting Manager (ASCP) . . Note: The Pap smear [...] [address], [address], [place], Phone - [phone], Director - [facility] Notes/Report: Clinical Information:[id number] LMP / Prev Treat...FQU=[id number] Dates / Results....03/19/23 NIL NEGHPV No. of containers..01 ThinPrep Vial REASON FOR VISIT Annual FARROWING WORKER Physical, Annual FARROWING WORKER Physical 50-59* Medications Medication SIG (Take, Route, [...] 06/23/2024 Encounters Encounter Location Date Provider Diagnosis [address] [place] [address] 06/23/2024 Opal Aguirre Encounter for gynecological examination [...] Provider Name:Opal story, 06/27/2025 09:40:00 AM, [address], [address], [place], [address], Progress Notes * PATRICK DILLONSDOB: [birth year] (48 yo F)Acc No.[id number]:06/23/2024 PROGRESS NOTES Patient:?YESSENIA DILLON Appointment Provider:?Opal story M.D. :1975???Age:48 Y???Sex:Female D ate:06/23/2024 Address:[address] [place] [address], , [place] [id number] Pcp:JOSEF PATTERSON MD Subjective: * Chief Complaints: * ??? Annual FARROWING WORKER PhysicalAnnua l FARROWING WORKER Physical 50-59* * HPI: ???New/Follow-up Patient Consult:? [...] FULLY. HER LAST MAMMOGRAM WAS DONE AT [facility] IN FEBRUARY 2024.? WE DO NOT [...] adequate calcium via diet and supplementation ?Significant FARROWING WORKER problems:?no significant plastic molding operator symptoms or problems * ROS:?general:?no?chest pain.?no?palpitations.?no?headache.?no?cough.?no?shortness of breath.?no?fever.?no?unexplained weight loss.?no?nausea/vomiting.?no?change in bowel movements.?no blood in stool.?no?genitourinary complaints.?no?skin complaints.? * Medical History:? * Infection Control Coordinator History:?/ Para?2/2.?Sexual activity?Not currently sexually active x1yr.?Last Pap Smear:?03/19/23 NIL, NEG HPV, 04/12/21 ASC-H, POS HRHPV, 12/01/17 NEG HRHPV, 02/04/13, neg.?Mammogram:?2022, 02/15/21 < 50% density, 01/2020, 11/17/18 < 50% density, Bilateral Mammo with f/u Lt Breast. repeat in 3-6 months [facility]. ordered by PCP.?Abnormal Pap Smear:?yes, 05/23/21 LEEP FARAZ I, 04/24/21 [place] FARAZ II, positive HRHPV in 2006.?LMP and [...] m ammogram for malignant neoplasm of breast?LAB: [id number] IGP No Culture 30 Plus ?Imaging: MM [...] * Images: Billing Information: * Visit Code:? 79994 Preventive Care New Pt. Age 40-64. 85154 Preventive Care Est Pt. Age 40-64. * Procedure Codes:? * Sign off status: Completed true * Appointment Provider:?Opal Aguirre M.D. Date:?06/23/2024 Generated for Jaime sinha/Christina/eTransmitting on:?01/27/2025 08:12 AM EDT History and Physical Notes * HPI (History [...] FULLY. HER LAST MAMMOGRAM WAS DONE AT [facility] IN FEBRUARY 2024. WE DO NOT [...] ate calcium via diet and supplementation Significant FARROWING WORKER problems:: n o significant plastic molding operator symptoms or problems Examination Category Sub-Category Detail [...]
--- OUTSIDE RECORDS SUMMARY | 2025-01-27 08:13 | XMS_ITS | Patient Health Record ---
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 Role Phone SID REYES Unavailable [phone] ALLERGIES No Known Allergies REASON FOR REFERRAL [...] 500 MG Oral for 30 Ac tive Efqecmgvlc-DLRJ-Pioknupt 50-300-40 MG Oral for 3 Active Dexcom [...] diabetes mellitus without complications (E11.9) Active confirmed 775130204 Problem Morbid (severe) obes ity due to excess calories (E66.01) Active confirmed 192851701 Problem Other obesity due to excess calories (E66.09) Active confirmed 496439092 Problem Essential (primary) hypertension (I10) Active confirmed 53356164 Problem 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 (Z79.4) Active confirmed 122360076 Problem Pure hypercholesterolemia (E78.00) Active confirmed 116228744 Problem BMI 40.0-44.9, adult (Z68.41) Active confirmed 517783554 Problem Body mass index [BMI ] 38.0-38.9, adult (Z68.38) Active confirmed 844794731 VITAL SIGNS Heart Rate 87 /min 01/29/2024 Blood pressure diastolic 82 mm Hg 01/29/2024 Oximetry 98 % 01/29/2024 Height 66 in 01/29/2024 Blood pressure systolic 132 mm Hg 01/29/2024 Weight 231 lbs 01/29/2024 BMI 37.28 kg/m2 01/29/2024 Encounters Encounter Location Date Provider Diagnosis [place] [id number] [address] [address] 03/18/2024 SID BORHOT Essential (primary) hypertension I10 ; Pure hypercholesterolemia E78.00 ; Type 2 diabetes mellitus without complications E11.9 ; Other obesity due to excess calories E66.09 and Body mass index [BMI] 38.0-38.9, adult Z68.38 [place] [address] [address] 04/08/2024 SID BORHOT Essential (primary) hypertension I10 ; Pure hypercholesterolemia E78.00 ; Type 2 diabetes mellitus without complications E11.9 ; Other obesity due to excess calories E66.09 ; Body mass index [BMI] 38.0-38.9, adult Z68.38 and Dietary counseling and surveillance Z71.3 [facility] [address] [facility] [address] [place] [address] 01/29/2024 SID REYES Essential (primary) hypertension I10 ; Pure hypercholesterolemia E78.00 ; Type 2 diabetes mellitus without complications E11.9 ; Other obesity due to excess calories E66.09 and Body mass index [BMI] 38.0-38.9, adult Z68.38 [address] [facility] [address] [place] [address] 04/07/2024 SID REYES ASSESSMENTS Encounter Date Diagnosis Assessment Notes Treatment Notes Treatment Clinical Notes Section Notes 01/29/2024 Essential (primary) hypertension (ICD-10 - I10) #Weight Management 01/29/2024 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 Consider using apps like STARFACE, Presidiopal, lose it, stick as needed for self-monitoring and weight management. Consider group exercises. Consider hiring a physical trainer. Regular exercise is uribe to sustainable [...] counseling and psychiatry and Dr Vallecillo at [facility]. 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 Consider using apps like STARFACE, myfitCorevalus Systemspal, lose it, stick as needed for self-monitoring and weight management. Consider group exercises. Consider hiring a physical trainer. Regular exercise is uribe to sustainable [...] counseling and psychiatry and Dr Vallecillo at [facility]. 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 Consider using apps like STARFACE, Presidiopal, lose it, stick as needed for self-monitoring and weight management. Consider group exercises. Consider hiring a physical trainer. Regular exercise is uribe to sustainable [...] counseling and psychiatry and Dr Vallecillo at [facility]. 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 Consider using apps like STARFACE, Presidiopal, lose it, stick as needed for self-monitoring and weight management. Consider group exercises. Consider hiring a physical trainer. Regular exercise is uribe to sustainable [...] counseling and psychiatry and Dr Vallecillo at [facility]. 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 Consider using apps like STARFACE, Presidiopal, lose it, stick as needed for self-monitoring and weight management. Consider group exercises. Consider hiring a physical trainer. Regular exercise is uribe to sustainable [...] counseling and psychiatry and Dr Vallecillo at [facility]. 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 Consider using apps like [employer] exceBankFacilise, myfitnesspal, lose it, stick as needed for self-monitoring and weight management. Consider group exercises. Consider hiring a physical trainer. Regular exercise is uribe to sustainable [...] counseling and psychiatry and Dr Vallecillo at [facility]. 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 Consider using apps like STARFACE, myfitnesspal, lose it, stick as needed for self-monitoring and weight management. Consider group exercises. Consider hiring a physical trainer. Regular exercise is uribe to sustainable [...] counseling and psychiatry and Dr Vallecillo at [facility]. 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 Consider using apps like STARFACE, Presidiopal, lose it, stick as needed for self-monitoring and weight management. Consider group exercises. Consider hiring a physical trainer. Regular exercise is uribe to sustainable [...] counseling and psychiatry and Dr Vallecillo at [facility]. 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 Consider using apps like STARFACE, myfitCorevalus Systemspal, lose it, stick as needed for self-monitoring and weight management. Consider group exercises. Consider hiring a physical trainer. Regular exercise is uribe to sustainable [...] counseling and psychiatry and Dr Vallecillo at [facility]. 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 Consider using apps like STARFACE, Presidiopal, lose it, stick as needed for self-monitoring and weight management. Consider group exercises. Consider hiring a physical trainer. Regular exercise is uribe to sustainable [...] counseling and psychiatry and Dr Vallecillo at [facility]. 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 Consider using apps like STARFACE, Presidiopal, lose it, stick as needed for self-monitoring and weight management. Consider group exercises. Consider hiring a physical trainer. Regular exercise is uribe to sustainable [...] counseling and psychiatry and Dr Vallecillo at [facility]. 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 Consider using apps like STARFACE, myfitCorevalus Systemspal, lose it, stick as needed for self-monitoring and weight management. Consider group exercises. Consider hiring a physical trainer. Regular exercise is uribe to sustainable [...] counseling and psychiatry and Dr Vallecillo at [facility]. 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 Consider using apps like STARFACE, Presidiopal, lose it, stick as needed for self-monitoring and weight management. Consider group exercises. Consider hiring a physical trainer. Regular exercise is uribe to sustainable [...] counseling and psychiatry and Dr Vallecillo at [facility]. 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 Consider using apps like STARFACE, Presidiopal, lose it, stick as needed for self-monitoring and weight management. Consider group exercises. Consider hiring a physical trainer. Regular exercise is uribe to sustainable [...] counseling and psychiatry and Dr Vallecillo at [facility]. 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 Consider using apps like STARFACE, myfitCorevalus Systemspal, lose it, stick as needed for self-monitoring and weight management. Consider group exercises. Consider hiring a physical trainer. Regular exercise is uribe to sustainable [...] counseling and psychiatry and Dr Vallecillo at [facility]. 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 Consider using apps like STARFACE, myfitnesspal, lose it, stick as needed for self-monitoring and weight management. Consider group exercises. Consider hiring a physical trainer. Regular exercise is uribe to sustainable [...] counseling and psychiatry and Dr Vallecillo at [facility]. We would like to cover regular topics [...] software and direct typing Please excuse inadvertent boat wrapper or typing errors, or uncorrected word substitutions Although every attempt has been made by the provider to proofread this document, occasional misspellings and typographical errors may still be present Due to the previous pandemic, and the use of personal protective equipment (PPE) This may decrease voice recognition accuracy Inadvertent boat wrapper errors may occur PLAN OF TREATMENT No Information Insurance Providers Payer Name Payer Address Payer Phone Subscriber Number Group Number Insured Name Patient Relationship to Insured Coverage Start Date Coverage End Date [employer] [place] [address] [address] [place] [address] [id number] Vonnie Sorto Self - patient is the insured MEDICAL (GENERAL) HISTORY Medical History History ICD Code hypertension type II diabetes hyperlipidemia asthma headache anxiety Hospitalization History Reason Date(Month/Year) asthma 07/19/2022
--- OUTSIDE RECORDS SUMMARY | 2025-01-27 08:13 | XMS_ITS ---
Author Organization [email or web address] [facility] Address [address] [place] [id number] Care Team Providers Care Bilingual Medical Receptionist Name Role Phone MAYRASID CALLOWAY Unavailable [phone] REASON FOR VISIT Flu like symptoms unable to come in seeing her pcp MEDICATIONS Medication SIG (Take, Route, Fr equency, Duration) Notes Start Date End Date Status Mounjaro 12.5 MG/0.5ML 12.5mg Subcutaneo us weekly for 30 days Active Encounters Encounter Location Date Provider Diagnosis [facility] [address] [address] 03/18/2024 SID REYES Essential (primary) hypertension I10 ; Pure hypercholesterolemia E78.00 ; Type 2 diabetes mellitus without complications E11.9 ; Other obesity due to excess calories E66.09 and Body mass index [BMI] 38.0-38.9, adult Z68.38 ASSESSMENTS Encounter Date Diagnosis Assessment Notes Treatment Notes Treatment Clinical Notes Section Notes 03/18/2024 Essential (primary) hypertension (ICD-10 - I10) #Weight Management 03/18/2024 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 Consider using apps like [employer] excercise, myfitnesspal, lose it, stick as needed for self-monitoring and weight management. Consider group exercises. Consider hiring a personalized living manager nurse. Regular exercise is uribe to sustainable health [...] counseling and psychiatry and Dr Vallecillo at [facility]. 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 Consider group exercises. Consider hiring a personalized living manager nurse. Regular exercise is uribe to sustainable health [...] counseling and psychiatry and Dr Vallecillo at [facility]. 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 Consider using apps like [employer], EnTouch Controlspal, lose it, stick as needed for self-monitoring and weight management. Consider group exercises. Consider hiring a personalized living manager nurse. Regular exercise is uribe to sustainable health [...] counseling and psychiatry and Dr Vallecillo at [facility]. 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 Consider using apps like RealOps, myfitGuang[employer] Huan [employer]pal, lose it, stick as needed for self-monitoring and weight management. Consider group exercises. Consider hiring a personalized living manager nurse. Regular exercise is uribe to sustainable health [...] counseling and psychiatry and Dr Vallecillo at [facility]. 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 Consider using apps like RealOps, EnTouch Controlspal, lose it, stick as needed for self-monitoring and weight management. Consider group exercises. Consider hiring a personalized living manager nurse. Regular exercise is uribe to sustainable health [...] counseling and psychiatry and Dr Vallecillo at [facility]. We would like to cover regular topics [...] software and direct typing Please excuse inadvertent sheet rock hanger or typing errors, or uncorrected word substitutions Although every attempt has been made by the provider to proofread this document, occasional misspellings and typographical errors may still be present Due to the previous pandemic, and the use of personal protective equipment (PPE) This may decrease voice recognition accuracy Inadvertent sheet rock hanger errors may occur PLAN OF TREATMENT Medication Medication Name Sig Start Date Stop Date Notes Mounjaro 12.5 MG/0.5ML 12.5mg Subcutaneo us weekly for 30 days Progress Notes * Verito SORTOsDOB: 3 (49 yo F)Acc No.[id number]:03/18/2024 Patient:??Vonnie SORTO Provider:??SID REYES NP :1975?Age:48 Y?Sex:Fe male Date:03/18/2024 Address:[address] [place], [place] [id number] Subjective: * Chief Complaints: * ?1. Flu [...] and she is happy with this. ?Her peoplesoft hcm developer is happy with her progress and our [...] adult - Z68.38?? 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 Consider using apps like RealOps, EnTouch Controlspal, lose it, stick as needed for self-monitoring and weight management. Consider group exercises. Consider hiring a personalized living manager nurse. Regular exercise is uribe to sustainable health [...] counseling and psychiatry and Dr Vallecillo at [facility]. We would like to cover regular topics [...] software and direct typing Please excuse inadvertent sheet rock hanger or typing errors, or uncorrected word substitutions Although every attempt has been made by the provider to proofread this document, occasional misspellings and typographical errors may still be present Due to the previous pandemic, and the use of personal protective equipment (PPE) This may decrease voice recognition accuracy Inadvertent sheet rock hanger errors may occur. Plan: * Treatment: * [...] and she is happy with this. Her peoplesoft hcm developer is happy with her progress and our [...]
[2025-01-27 08:14] VITALS: BP 118/74; PULSE 102; O2SAT 96; BMI 34.9
--- OUTSIDE RECORDS SUMMARY | 2025-01-27 08:14 | XMS_ITS | Patient Health Record ---
Author Organization [facility] Address [address] [place] [address] Care Team Providers Care Manufacture Specialist Name Role Phone LEONARDO AMARAL, JOSEF Primary Care Provider Opal Monroe Unavailable [phone] Allergies Allergen (clinical drug ingredient) Drug/Non Drug Allergy documented on EMR Reaction Allergy Type Onset Date Status metformin Metformin HCl Diarrhea Drug Allergy Act cisco liraglutide Victoza Skin Rash Drug Allergy Activ e Lysteda Eye Redness Drug Allergy Activ e Results Component Value Reference Range Notes [id number] IGP No Culture 30 Plus Reviewed date:06/28/2024 06:57:35 PM Interpretation: Performing Lab:[facility] [place], [address], [address], [place], Phone - [phone], Director - [facility] Notes/Report: Clinical Information:[id number] LMP / Prev Treat...[id number] Dates / Results....03/19/23 NIL NEGHPV No. of containers..01 ThinPrep Vial DIAGNOSIS: NEGATIVE FOR IN TRAEPITHELIAL LESION OR MALIGNANCY. Specimen adequacy: Satisfactory for evaluation. Endocervical and/or squamous metaplastic cells (endocervical component) are present. Clinician provided ICD10: Z1 2.31 Performed by: Jose Kuhn , Newsroom Intern (ASCP) . . Note: The Pap smear [...] Guillermina [address], [address], [place], Phone - [phone], Director - [facility] Notes/Report: Clinical Information:[id number] LMP / Prev Treat...[id number]=[id number] Dates / Results....03/19/23 NIL NEGHPV No. of [...] test positive, high risk on vaginal specimen (378409504148368) Cervical high risk human papillomavirus (HPV) DNA test positive (R87.810) Active confirmed Problem Vitamin D deficiency (01508075) Vitamin D deficiency, unspecified (E55.9) Active confirmed Problem Moderate cervical dysplasia (951968488) Moderate cervical dysplasia (N87.1) Active confirmed Problem Morbid obesity (disorder) (348289628) Morbid (severe) obesity due to excess calories (E66.01) Active confirmed Problem Amenorrhea (63739433) Amenorrhea, unspecified (N91.2) Active confirmed Problem Oligomenorrhea (92133876) Oligomenorrhea, unspecified (N91.5) Active confirmed Problem Abnormal vaginal bleeding (107540945) Other specified abnormal uterine and vaginal bleeding (N93.8) Active confirmed Problem Functional urinary incontinence (594399064) Functional urinary incontinence (R39.81) Active confirmed Problem History of dysplasia of cervix (675122682) Personal history of cervical dysplasia (Z87.410) Active confirmed Problem Type II diabetes mellitus without complication (053272021) Diabetes mellitus without mention of complication, type II or unspecified type, not stated as uncontrolled (250.00) Active confirmed Major Problem Benign essential hypertension (0997086) Essential hypertension, benign (401.1) Active confirmed Major Problem Vulvovaginitis (disorder) (51728015) Unspecified vaginitis and vulvovaginitis (616.10) Active confirmed Diag Problem Asthma (disorder) (446288629) Asthma, unspecified, unspecified status (493.90) Active confirmed Major Problem Absence of menstruation (40113702) Absence of menstruation (626.0) Active confirmed Diag Problem Gynecological examination normal (072924150253049) Routine gynecological examination (V72.31) Active confirmed Major Vital Signs Temperature 98.0 degrees Fahrenheit 06/23/2024 Blood pressure diastolic 82 mm Hg 06/23/2024 Height 66.25 in 06/23/2024 Blood pressure systolic 122 mm Hg 06/23/2024 Weight 226 lbs 06/23/2024 BMI 36.2 kg/m2 06/23/2024 Encounters Encounter Location Date Provider Diagnosis [facility] [address] [place] [address] 03/22/2024 Opal Aguirre Total [address] [place] [address] 06/23/2024 Opal Aguirre Encounter for gynecological examination (general) (routine) without abnormal findings Z01.419 ; Encounter for screening mammogram for malignant neoplasm of breast Z12.31 ; Encounter for routine checking of intrauterine contraceptive device Z30.431 and Personal history of cervical dysplasia Z87.[address] [place] [address] 06/12/2024 Opal Aguirre Assessments Encounter Date Diagnosis [...] Name:Opal Mejia jez, 06/27/2025 09:40:00 AM, [address], [address], [place], [address], Insurance Providers Payer Name Payer Address Payer Phone Subscriber Number Group Number Insured Name Patient Relationship to Insured Coverage Start Date Coverage End Date [employer] [place] [address] [address] [place] [address] [id number] YESSENIA DILLON Self - patient is [...]
--- OUTSIDE RECORDS SUMMARY | 2025-01-27 08:14 | XMS_ITS ---
Author Organization [facility] Address [address] [place] [address] Care Team Providers Care Roll Capper Name Role Phone SID REYES Unavailable [phone] REASON FOR VISIT appt/ cx Encounters Encounter Location Date Provider Diagnosis [address] [address] 04/07/2024 SID REYES PLAN OF TREATMENT No Information Progress Notes * Verito SORTOsDOB: 3 (48 yo F)Acc No.[id number]:04/07/2024 Patient:??Vonnie SORTO :1975?Age:48 Y?Sex:Fe male Address:[address] [place] [address] * true * Date:??
--- OUTSIDE RECORDS SUMMARY | 2025-01-27 08:14 | XMS_ITS ---
Author Organization [facility] [facility] Address [address] [place] [address] Care Team Providers Care Legal Librarian Name Role Phone LEONARDO AMARAL, [place], [facility] Primary Care Provider Opal Monroe [phone] REASON FOR VISIT No showed for March 2024 visit but yellow sheet completed Encounters Encounter Location Date Provider Diagnosis [facility] [address] [place] [address] 06/12/2024 Opal Aguirre Plan Of Treatment Next Appt Details Provider Name:Opal story, 06/27/2025 09:40:00 AM, [address], [address], [place], [address], Progress Notes * PATRICK DILLONSDOB: [birth year] (48 yo F)Acc No.[id number]:06/12/2024 Patient:?YESSENIA DILLON :1975???Age:48 Y???Sex:Female Address:[address] [place] [address], [place], [address] * true * Date:? Generated for Jcarlosi bharath/Christina/eTransmitting on:?01/27/2025 08:13 AM EDT
[2025-01-27 08:21] LABS: Glucose, Whole Blood 182 mg/dL (60-115)
== END 2025-01-27 08:31 | disposition home or self-care (01) ==
LOC: HO.ENCR 08:07
PROVIDERS: PCP Internal Medicine; Visit Provider Physician Assistant
DX: E11.65 Type 2 diabetes mellitus with hyperglycemia (principal); Z79.4 Long term (current) use of insulin; I10 Essential (primary) hypertension

== ENCOUNTER → 2025-01-27 08:07 | Outpatient (BNVA) | payer OTHER, SELFPAY | PROVIDERS: PCP Internal Medicine; Visit Provider Physician Assistant | DX: E11.65 Type 2 diabetes mellitus with hyperglycemia (principal); I10 Essential (primary) hypertension; Z79.4 Long term (current) use of insulin | CPT/HCPCS: 82947 ==

== ENCOUNTER 2025-03-31 08:30 | Outpatient (AMB) | payer OTHER, SELFPAY ==
[2025-03-31 08:32] VITALS: BP 114/86; PULSE 82; O2SAT 98; BMI 36.9
--- NOTE | 2025-03-31 08:32 | A.OFFVIS_ITS ---
Vital Signs 03/31/25 08:32 Height 5 ft 7 in Weight 235 lb 10.786 oz BMI 36.9 BP 114/86 Blood Pressure Location Lt brachial Position Sitting Pulse 82 Pulse Source Pulse Oximeter Pulse Oximetry (%) 98 Oxygen Delivery Method Room Air Intake Visit Reasons: T2DM Intake Note: Patient present today for Type 2 Diabetes Mellitus Last Diabetic eye exam: 12/2024 Last Podiatry Visit: Doesn't have one Random Glucose: 221 mg/dl HgA1C: 11.1% 01/16/25 Ensemble Member Required: No Accompanied by: Self / Same As Patient Allergies metronidazole [From Flagyl] Allergy (Severe, Verified 03/31/25 08:42) Anaphylaxis canagliflozin [Invokana] Allergy (Unknown, Verified 03/31/25 08:42) rash liraglutide Allergy (Unknown, Verified 03/31/25 08:42) rash animals Allergy (Unknown, Uncoded 03/31/25 08:42) rash Pt states no known food allerg Allergy (Unknown, Uncoded 03/31/25 08:42) Unknown Medication List - Last Reconciled 03/31/25 by Beth Villalobos PA-C albuterol sulfate 90 mcg/actuation 2 puffs inhalation Q6H PRN albuterol sulfate 5 mg inhalation Q4H PRN albuterol sulfate 2.5 mg inhalation BID PRN amitriptyline 1 tab PO BEDTIME blood sugar diagnostic (FreeStyle Lite Strips) use daily As directed blood-glucose meter (FreeStyle Lite Meter kit) As directed blood-glucose sensor (Dexcom G7 Sensor device) As directed change every 10 days empagliflozin (Jardiance) 25 mg PO DAILY ergocalciferol (vitamin D2) 1,250 mcg PO WE@0900 insulin glargine (Lantus Solostar U-100 Insulin) 40 units subcut QPM insulin lispro (Humalog KwikPen (U-100) Insulin) 15 units (0.15 mL) subcut TID ketorolac 10 mg PO Q8H PRN lancets (FreeStyle Lancets) 5x/day montelukast 10 mg PO BEDTIME nebulizers (Compact Compressor Nebulizer) As directed nebulizers (AeroEclipse II Nebulizer) As directed nystatin 600,000 units (6 mL) PO QID 10 days omalizumab (Xolair) 300 mg subcut Q2W 28 days omeprazole 40 mg PO DAILY@0630 pen needle, diabetic (Comfort EZ Pen [place]) As directed injects 4X/day pen needle, diabetic (BD Ultra-Fine Mini Pen Needle) use 4x a day As directed rosuvastatin 40 mg PO BEDTIME 90 days tirzepatide (Mounjaro) 12.5 mg (0.5 mL) subcut QWEEK HPI HPI T2DM: Details: Patient is a 49-year-old female with a significant past medical history obesity, uncontrolled type 2 diabetes, hypertension, hyperlipidemia, asthma presenting today for a short term follow-up for diabetes. Endo: Her last A1c was 7.4 and most recently 11.1. She is currently on Lantus 20-30 units(supposed to be on 40 units), Humalog 15 units with food, jardiance 25 mg and is back on mounjaro 10 mg weeky. -went away for 1 week and did not take any medication. -does not tolerate metformin GI distress, trulicity caused diarrhea, victoza caused a rash and nausea She is currently down 10 lb with diet and exercise for the last month. She states that she has been drinking a lot of water and urinating more frequently because of the elevated blood sugars. No vision changes, headaches, chest pain or shortness on breath. Reviewed her dexcom- 32% very high, 55% high, 13% in range. 0% hypoglycemic events. GMI 8.8%, avg glucose 228 CV: Blood pressure today in the office is 118/74. Cholesterol is managed with rosuvastatin 40 mg. Reports that there were some compliance issues. Last LDL elevated above goal. No myalgias. [facility] Medical History Environmental allergies Anxiety Eosinophilia Obesity due to excess calories Vitamin D deficiency Diabetic 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 with type 2 diabetes mellitus long-term (current) use of insulin Diabetes type 2, uncontrolled Ectopic Hyperlipidemia Hypertension Asthma Surgical History History of esophagogastroduodenoscopy (EGD) Hx of colonoscopy History of surgical procedure on mouth Hx of ectopic Family History Father Diabetes mellitus Stomach cancer Mother Diabetes mellitus Ovarian cancer Paternal Grandfather Colon cancer Paternal Aunt Liver cancer Paternal Aunt Liver cancer Social History Household Members: Family Housing: House Do you presently have visiting nurse or other home services: No Alcohol intake: never Patient Tobacco Use Status: Never used Tobacco Advance Directives Date on File: 07/15/22 service: No Current occupational status: employed Physical Exam Const Orientation/consciousness: patient oriented x3 HEENT Ears: hearing grossly normal bilaterally Neck Thyroid: Thyroid normal Lymphatic: no lymphadenopathy noted Resp Auscultation: clear to auscultation bilaterally Cardio Rate: regular rate Rhythm: regular rhythm Heart sounds: S1 normal heart sound present and S2 normal heart sound present Skin General skin exam: no rashes or lesions noted Neuro General: patient oriented x3, gait normal and no focal motor deficits Results Reviewed Results Reviewed: Laboratory Tests 10/22/24 01/16/25 01/27/25 07:52 08:55 08:18 Glucose (Clinic) 182 H Hgb A1c (Clinic) 11.1 H Urine Creatinine 148.88 Urine Microalbumin 14.0 Microalb/Creat Ratio 9.4 Assessment & Plan Assessment & Plan (1) Diabetes type 2, uncontrolled: Code(s): E11.65 - Type 2 diabetes mellitus with hyperglycemia Category: Medical Qualifiers: Glycemic state: with hyperglycemia Qualified Code(s): E11.65 - Type 2 diabetes mellitus with hyperglycemia Plan: increase mounjaro to 12.5 mg weekly increase lantus to 40 units as previously directed continue humalog 15 units with meals continue jardiance (2) publicity consultant (current) use of insulin: Code(s): Z79.4 - publicity consultant (current) use of insulin Category: Medical Plan: as above (3) Hypertension: Code(s): I10 - Essential (primary) hypertension Category: Medical Qualifiers: Hypertension type: essential hypertension Qualified Code(s): I10 - Essential (primary) hypertension Plan: hx of this will continue to monitor (4) Hyperlipidemia: Code(s): E78.5 - Hyperlipidemia, unspecified Category: Medical Qualifiers: Hyperlipidemia type: pure hypercholesterolemia Qualified Code(s): E78.00 - Pure hypercholesterolemia, unspecified Plan: continue crestor will check labs prior to next appointment Medications: New tirzepatide (Mounjaro) 12.5 mg (0.5 mL) subcut QWEEK 2 mL 3RF Discontinued tirzepatide (Mounjaro) Discontinued Reason: Doctor's Order 10 mg (0.5 mL) subcut QWEEK 2 mL 3RF Coding Level of Care Code Est Pt Level 4 (09197) Complex EM visit Add On G2211 Diagnoses Uncontrolled type 2 diabetes mellitus with hyperglycemia E11.65 Glycemic state: with hyperglycemia long-term (current) use of insulin Z79.4 Essential hypertension I10 Hypertension type: essential hypertension Pure hypercholesterolemia E78.00 Hyperlipidemia type: pure hypercholesterolemia
[2025-03-31 08:54] LABS: Glucose, Whole Blood 221 mg/dL (60-115)
== END 2025-03-31 08:55 | disposition home or self-care (01) ==
PROVIDERS: PCP Internal Medicine; Visit Provider Physician Assistant
DX: E11.65 Type 2 diabetes mellitus with hyperglycemia (principal); Z79.4 Long term (current) use of insulin; I10 Essential (primary) hypertension; E78.00 Pure hypercholesterolemia, unspecified

== ENCOUNTER → 2025-03-31 08:30 | Outpatient (BNVA) | payer OTHER, SELFPAY | PROVIDERS: PCP Internal Medicine; Visit Provider Physician Assistant | DX: E11.65 Type 2 diabetes mellitus with hyperglycemia (principal); E66.9 Obesity, unspecified; E78.00 Pure hypercholesterolemia, unspecified; Z68.36 Body mass index [BMI] 36.0-36.9, adult; Z79.4 Long term (current) use of insulin; Z79.899 Other long term (current) drug therapy | CPT/HCPCS: 82947 ==

== ENCOUNTER 2025-04-15 01:16 | Emergency (ER) | payer OTHER, SELFPAY ==
--- NOTE | ~2025-04-15 | XR_ITS ---
CLINICAL HISTORY: dyspnea 1 view chest x-ray Comparison: Chest x-ray from 12/25/2024 Findings: No consolidation, pneumothorax, or pleural effusion. Mild/borderline elevation of the left hemidiaphragm. Imaged mediastinum is unchanged. Degenerative changes again noted of the imaged AC joints. IMPRESSION: No consolidation. This document has been electronically signed by: Rafael Amezquita MD on 04/15/2025 02:54:14
[2025-04-15 01:19] VITALS: PULSE 96; RESP 20; TEMP 37.2; O2SAT 93; BMI 36.0
--- NOTE | 2025-04-15 01:30 | ED.ASTHMA ---
HPI - Asthma General Chief Complaint: Dyspnea Stated Complaint: Asthmatic Time Seen by Provider: 04/15/25 01:23 Source: patient Mode of arrival: ambulatory Limitations: no limitations History of Present Illness ED Provider: HPI Narrative: nonsmoker, followed By pulmonary for underlying moderate to severe persistent asthma significant allergic component, on Xolair and now continues on Xolair, Trelegy, and albuterol MDI, reports history of intubations for asthma, has been short of breath for the past 3 days using nebulizers and she states she also always has steroids and she has started taking oral steroids yesterday. Has not been improving. MD complaint: asthma attack and shortness of breath Related Data Home Medications ?Medication ?Instructions ?Recorded ?Confirmed amitriptyline 25 mg tablet 1 tab PO BEDTIME 07/14/22 03/31/25 albuterol sulfate 2.5 mg/3 mL 2.5 mg inhalation BID PRN 08/08/22 03/31/25 (0.083 %) solution for nebulization Shortness Of Breath Or Wheezing albuterol sulfate 90 mcg/actuation 2 puff inhalation Q6H PRN 04/14/24 03/31/25 aerosol inhaler shortness of breath or wheezing ergocalciferol (vitamin D2) 1,250 1,250 mcg PO WE@0900 04/14/24 03/31/25 mcg (50,000 unit) capsule insulin glargine 100 unit/mL (3 40 unit subcut QPM 01/20/25 03/31/25 mL) subcutaneous pen (Lantus Solostar U-100 Insulin) Previous Rx's ?Medication ?Instructions ?Recorded nebulizers (AeroEclipse II #1 ea 12/22/20 Nebulizer) nebulizers (Compact Compressor #1 ea 12/31/20 Nebulizer) rosuvastatin 40 mg tablet 40 mg PO BEDTIME 90 days #90 tabs 03/13/21 omalizumab 150 mg subcutaneous 300 mg subcut Q2W 28 days #4 ea 08/12/22 solution (Xolair) pen needle, diabetic 32 gauge x #100 ea 03/12/2303/31 (Comfort EZ Pen [place]) montelukast 10 mg tablet 10 mg PO BEDTIME #90 tabs 04/19/24 nystatin 100,000 unit/mL oral 600,000 unit (6 mL) PO QID 10 days 04/19/24 suspension #240 mL omeprazole 40 mg capsule,delayed 40 mg PO DAILY@0630 #90 caps 04/19/24 release blood-glucose meter (FreeStyle #1 ea 06/10/24 Lite Meter kit) lancets 28 gauge (FreeStyle #200 ea 06/10/24 Lancets) blood sugar diagnostic (FreeStyle #100 ea 08/05/24 Lite Strips) pen needle, diabetic 31 gauge x #100 ea 08/05/24 3/16 (BD Ultra-Fine Mini Pen Needle) blood-glucose sensor (Dexcom G7 #3 ea 10/17/24 Sensor device) albuterol sulfate 2.5 mg/0.5 mL 5 mg inhalation Q4H PRN shortness 10/19/24 solution for nebulization of breath or wheezing #30 ea ketorolac 10 mg tablet 10 mg PO Q8H PRN pain #10 tabs 12/25/24 insulin lispro 100 unit/mL 15 unit (0.15 mL) subcut TID #15 mL 01/20/25 subcutaneous pen (Humalog KwikPen (U-100) Insulin) empagliflozin 25 mg tablet 25 mg PO DAILY #90 tabs 01/27/25 (Jardiance) tirzepatide 12.5 mg/0.5 mL 12.5 mg (0.5 mL) subcut QWEEK #2 mL 03/31/25 subcutaneous pen injector (Mounjaro) dexamethasone 6 mg tablet 6 mg PO DAILY 5 days #5 tabs 04/15/25 prednisone 20 mg tablet 20 mg PO DAILY #12 tabs 04/15/25 Allergies Allergy/AdvReac Type Severity Reaction Status Date / Time metronidazole [From Flagyl] Allergy Severe Anaphylaxis Verified 04/15/25 01:21 canagliflozin [Invokana] Allergy Unknown rash Verified 04/15/25 01:21 liraglutide Allergy Unknown rash Verified 04/15/25 01:21 animals Allergy Unknown rash Uncoded 03/31/25 08:42 Pt states no known food Allergy Unknown Unknown Uncoded 03/31/25 08:42 allerg Review of Systems Constitutional: Constitutional: Reports as per [facility] Past Medical History Medical History Environmental allergies Anxiety Eosinophilia Obesity due to excess calories Vitamin D deficiency Diabetic 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 with type 2 diabetes 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 Diabetes type 2, uncontrolled Ectopic Hyperlipidemia Hypertension Asthma Surgical History History of esophagogastroduodenoscopy (EGD) Hx of colonoscopy History of surgical procedure on mouth Hx of ectopic Family History Family History Father Diabetes mellitus Stomach cancer Mother Diabetes mellitus Ovarian cancer Paternal Grandfather Colon cancer Paternal Aunt Liver cancer Paternal Aunt Liver cancer Social History Social History Household Members: Family Housing: House Do you presently have visiting nurse or other home services: No Alcohol intake: never Patient Tobacco Use Status: Never used Tobacco Smoked in Last 30 Days: No Use of substances other than those prescribed or required for medical reasons: No Advance Directives: Yes Advance Directives on File: Yes Advance Directives Date on File: 07/15/22 Do you have a plan to hurt others: No Plan Patient : No service: No Current occupational status: employed Physical Exam Vital Signs: Vital Signs: Last Vital Signs Temp 98.0 F 04/15/25 07:18 Pulse 90 04/15/25 07:18 Resp 18 04/15/25 07:18 BP 129/87 04/15/25 07:18 Pulse Ox 94 04/15/25 07:18 O2 Del Method Room Air 04/15/25 07:18 BMI result Body Mass Index 36.0 Const: Other: ? Gen: In respiratory distress ? HEENT: PERRLA, EOMI, MMM, ? Neck: Supple, no LAD ? CV: RRR, no obvious murmurs appreciated ? Resp: not moving much air with apical expiratory wheezing ? Abd: Bowel sounds are present, no tenderness no rebound no rigidity ? MSK: FROM, strength 5/5 all extremities ? Skin: Warm, dry, intact, ? Neuro: Alert and oriented x3, moving upper and lower extremities symmetrically, no obvious facial asymmetry noted Course Reevaluation(s) Reevaluation #1: The patient was signed out to me at change of shift by the previous emergency physician. The patient had arrived with complaints related to asthma. The patient had seemed to improve with treatment and the plan was for discharge. The nurse asked me to see the patient because the patient was complaining of left-sided neck pain. The patient has some tenderness in the region of the left sternocleidomastoid muscle. I did not appreciate any definite lymphadenopathy. Her posterior pharynx is unremarkable. I sent a rapid strep that was negative. She also said that she was having left ear pain. I examined her left tympanic membrane and it was entirely normal as was the ear canal. I suspect that the patient's pain is probably a muscular strain of the left sternocleidomastoid muscle. She will be discharged with recommendations to use ibuprofen and acetaminophen for this pain. She should follow up with Dr. Hinkle. She should return if worse. Time: 07:07 Medications Administered Discontinued Medications Generic Name Dose Route Start Last Admin Trade Name Freq PRN Reason Stop Dose Admin Acetaminophen 975 mg 04/15/25 04:40 04/15/25 05:15 Acetaminophen 325 Mg Tablet PO 04/15/25 04:41 975 mg ONCE ONE Administration Albuterol Sulfate 2.5 mg 04/15/25 02:04 04/15/25 02:08 Albuterol Sulfate (0.083%) 2.5 Mg/3 Ml Vial.Neb INHALE 04/15/25 02:05 2.5 mg ONCE ONE Administration Sodium Chloride 1,000 mls @ 999 mls/hr 04/15/25 01:30 04/15/25 07:19 Ns IV 04/15/25 02:30 Infused .Q1H1M SIXTO Infusion Magnesium Sulfate 2 gm in 50 mls @ 25 mls/hr 04/15/25 01:28 04/15/25 05:29 Magnesium Sulfate/H2o IV 04/15/25 03:27 Infused ONCE ONE Infusion Ketorolac Tromethamine 15 mg 04/15/25 04:40 04/15/25 05:15 Ketorolac Tromethamine 15 Mg/Ml Vial IVPUSH 04/15/25 04:41 15 mg ONCE ONE Administration Methylprednisolone Sodium Succinate 125 mg 04/15/25 01:28 04/15/25 02:24 Methylprednisolone Sod Succ 125 Mg Vial IVPUSH 04/15/25 01:29 125 mg ONCE ONE Administration Medical Decision Making Medical Decision Making [facility] Narrative: 01:34 presenting with asthma, on initial evaluation she is not moving much air, we will initiate a DuoNeb treatments, steroids, fluids and magnesium, chest x-ray to evaluate for any pneumonia, giving a history and multiple presentations I doubt that this is related to PE or CHF, anticipate she may need to be admitted. 03:00 patient re-evaluated, she is doing much better still getting fluids and magnesium after that anticipate that she will be ready for discharge her workup thus far has been reassuring and she has had good response to treatment 04:00. patient is going to be discharged home she is feeling better, 97% on room air Differential Diagnosis Differential Diagnoses: The differential diagnosis associated with the presentation includes CHF, COPD exacerbation, pneumonia, pneumothorax, ACS, PE, Admission/Observation Consideration of admission/observation: Escalation of care including admission/observation considered Lab Data MDM Lab Attestation statement: I reviewed the patient's lab results. 04/15/25 02:05 04/15/25 02:05 Labs: Lab Results 04/15/25 04/15/25 04/15/25 Range/Units 02:05 02:12 02:19 WBC 9.6 (4.8-10.8) X10*3/uL RBC 4.84 (4.20-5.50) X10*6/uL Hgb 13.5 (12.0-16.0) g/dl Hct 39.0 (37.0-47.0) % MCV 80.6 (80.0-98.0) fL MCH 27.9 (27.0-33.0) pg MCHC 34.6 (31.0-35.0) g/dl RDW 13.7 (11.0-16.0) % Plt Count 264 (160-400) X10*3/uL MPV 9.5 (9.4-12.3) fL Immature Gran % (Auto) 0.2 (0.0-0.4) % Neut % (Auto) 44.1 L (45-73) % Lymph % (Auto) 45.0 H (20-40) % [place] % (Auto) 5.2 (2-11) % Eos % (Auto) 4.9 H (0-4) % Baso % (Auto) 0.6 (0-2) % Lymph # (Auto) 4.3 (1.2-4.9) X10*3/uL [place] # (Auto) 0.5 (0.1-1.2) X10*3/uL Eos # (Auto) 0.5 H (0.0-0.4) X10*3/uL Baso # (Auto) 0.1 (0.0-0.2) X10*3/uL Abs Immat Gran (auto) 0.02 (0.00-0.03) X10*3/uL Absolute Neuts (auto) 4.3 (2.0-8.3) x10*3/uL Absolute Nucleated RBC 0.000 (0.0-0.012) X10*3/uL Nucleated RBC % (auto) 0.0 (0.0-0.2) /100WBC VBG pH 7.51 H (7.32-7.43) VBG pCO2 30 mmHg VBG pO2 83 mmHg VBG HCO3 24 (22-26) mmol/L VBG O2 Saturation 99.0 % VBG Base Excess 2.1 mmol/L Sodium 140 (135-145) mmol/L Potassium 4.9 D (3.3-5.1) mmol/L Chloride 108 (96-108) mmol/L Carbon Dioxide 23 (22-29) mmol/L Anion Gap 14 (12-20) BUN 12 (9-16) mg/dL Creatinine 0.50 (0.5-1.4) mg/dL Estim Creat Clear Calc 165.3 Estimated GFR > 60 Random Glucose 196 H (60-115) mg/dL Lactic Acid 1.3 (0.5-2.0) mmol/L Calcium 8.8 D (8.4-10.2) mg/dL Magnesium 2.1 (1.6-2.6) mg/dL B-Natriuretic Peptide 28 (<100) pg/mL Influenza Type A (PCR) NEGATIVE (Negative) Influenza Type B (PCR) NEGATIVE (Negative) RSV RNA Qual (PCR) NEGATIVE (Negative) SARS-CoV-2 RNA (RT-PCR) NEGATIVE (Negative) S. pyogenes GrpA AL (Negative) 04/15/25 Range/Units 06:21 WBC (4.8-10.8) X10*3/uL RBC (4.20-5.50) X10*6/uL Hgb (12.0-16.0) g/dl Hct (37.0-47.0) % MCV (80.0-98.0) fL MCH (27.0-33.0) pg MCHC (31.0-35.0) g/dl RDW (11.0-16.0) % Plt Count (160-400) X10*3/uL MPV (9.4-12.3) fL Immature Gran % (Auto) (0.0-0.4) % Neut % (Auto) (45-73) % Lymph % (Auto) (20-40) % [place] % (Auto) (2-11) % Eos % (Auto) (0-4) % Baso % (Auto) (0-2) % Lymph # (Auto) (1.2-4.9) X10*3/uL [place] # (Auto) (0.1-1.2) X10*3/uL Eos # (Auto) (0.0-0.4) X10*3/uL Baso # (Auto) (0.0-0.2) X10*3/uL Abs Immat Gran (auto) (0.00-0.03) X10*3/uL Absolute Neuts (auto) (2.0-8.3) x10*3/uL Absolute Nucleated RBC (0.0-0.012) X10*3/uL Nucleated RBC % (auto) (0.0-0.2) /100WBC VBG pH (7.32-7.43) VBG pCO2 mmHg VBG pO2 mmHg VBG HCO3 (22-26) mmol/L VBG O2 Saturation % VBG Base Excess mmol/L Sodium (135-145) mmol/L Potassium (3.3-5.1) mmol/L Chloride (96-108) mmol/L Carbon Dioxide (22-29) mmol/L Anion Gap (12-20) BUN (9-16) mg/dL Creatinine (0.5-1.4) mg/dL Estim Creat Clear Calc Estimated GFR Random Glucose (60-115) mg/dL Lactic Acid (0.5-2.0) mmol/L Calcium (8.4-10.2) mg/dL Magnesium (1.6-2.6) mg/dL B-Natriuretic Peptide (<100) pg/mL Influenza Type A (PCR) (Negative) Influenza Type B (PCR) (Negative) RSV RNA Qual (PCR) (Negative) SARS-CoV-2 RNA (RT-PCR) (Negative) S. pyogenes GrpA AL Negative (Negative) Independent Interpretation I performed an independent interpretation of an: Plain X-Ray ( My independent chest xray interpretation: Lungs: Lungs are clear bilaterally without evidence of focal consolidation, pleural effusion, or pneumothorax. Cardiac silhouette is unremarkable, no obvious mediastinal widening, no obvious bony abnormalities such as fractures. Impression: Normal chest X-) Discharge Plan Discharge Clinical Impression: Neck pain on left side Asthma exacerbation Qualifiers: Asthma severity: moderate Asthma persistence: unspecified Qualified Code(s): J45.901 - Unspecified asthma with (acute) exacerbation Patient Disposition: Home, Self-Care Additional Instructions: for the rest of the day tomorrow nebulizer treatments every 4 hours, and also let us try using dexamethasone 6 mg daily which is a steroid that some considered to be causing less hypoglycemia and diabetic patients. I also find that it works faster and sometimes better in some individuals. Follow up with the PCP other issues or concerns come back to the ER, your workup today has been reassuring. You have had a good response to treatment. Take prednisone as prescribed. use ibuprofen and acetaminophen as needed for your left-sided neck pain. Prescriptions: New dexamethasone 6 mg tablet 6 mg PO DAILY 5 Days Qty: 5 0RF prednisone 20 mg tablet 20 mg PO DAILY Qty: 12 0RF Rx Instructions: Take 3 tablets by mouth daily for 2 days then take 2 tablets by mouth daily for 3 days. No Action Xolair 150 mg recon soln 300 mg subcut Q2W 28 Days Qty: 4 12RF Rx Instructions: requires multiple injection sites; do not exceed 150 mg per injection site (DME) nebulizers [AeroEclipse II Nebulizer] [facility] [place] Rx Instructions .ROUTE .MEDSUPPLY Qty: 1 0RF Rx Instructions: As directed (DME) nebulizers [Compact Compressor Nebulizer] [facility] [place] Rx Instructions .ROUTE .MEDSUPPLY Qty: 1 0RF Rx Instructions: As directed amitriptyline 25 mg tablet 1 tab PO BEDTIME albuterol sulfate 90 mcg/actuation HFA aerosol inhaler 2 puff inhalation Q6H PRN (Reason: shortness of breath or wheezing) ergocalciferol (vitamin D2) 1,250 mcg (50,000 unit) capsule 1,250 mcg PO WE@0900 nystatin 100,000 unit/mL Suspension 600,000 unit PO QID 10 Days Qty: 240 0RF omeprazole 40 mg Capsule,Delayed Release(Dr/Ec) 40 mg PO DAILY@0630 Qty: 90 0RF montelukast 10 mg tablet 10 mg PO BEDTIME Qty: 90 0RF ketorolac 10 mg tablet 10 mg PO Q8H PRN (Reason: pain) Qty: 10 0RF Rx Instructions: Do not use this medication with other NSAIDs albuterol sulfate 2.5 mg/0.5 mL solution for nebulization 5 mg inhalation Q4H PRN (Reason: shortness of breath or wheezing) Qty: 30 0RF rosuvastatin 40 mg tablet 40 mg PO BEDTIME 90 Days Qty: 90 2RF albuterol sulfate 2.5 mg /3 mL (0.083 %) solution for nebulization 2.5 mg inhalation BID PRN (Reason: Shortness Of Breath Or Wheezing) (DME) pen needle, diabetic [Comfort EZ Pen [place]] 32 gauge x 5/16 needle See Rx Instructions .Route Qty: 100 6RF Rx Instructions: As directed injects 4X/day (DME) blood-glucose meter [FreeStyle Lite Meter] Kit See Rx Instructions .ROUTE .MEDSUPPLY Qty: 1 0RF Rx Instructions: As directed (DME) lancets [FreeStyle Lancets] 28 gauge misc See Rx Instructions .ROUTE .MEDSUPPLY Qty: 200 1RF Rx Instructions: 5x/day (DME) Dexcom G7 Sensor Device See Rx Instructions .Route Qty: 3 5RF Rx Instructions: As directed change every 10 days Jardiance 25 mg tablet 25 mg PO DAILY Qty: 90 3RF (DME) pen needle, diabetic [BD Ultra-Fine Mini Pen Needle] 31 gauge x 3/16 needle See Rx Instructions .Route Qty: 100 5RF Rx Instructions: use 4x a day As directed (DME) FreeStyle Lite Strips Strip See Rx Instructions .Route Qty: 100 2RF Rx Instructions: use daily As directed insulin glargine [Lantus Solostar U-100 Insulin] 100 unit/mL (3 mL) insulin pen 40 unit subcut QPM insulin lispro [Humalog KwikPen Insulin] 100 unit/mL insulin pen 15 unit subcut TID Qty: 15 3RF Mounjaro 12.5 mg/0.5 mL pen injector 12.5 mg subcut QWEEK Qty: 2 3RF Referrals: Shandra Diaz MD [Primary Care Provider] - ( asthma, left neck pain) Interventions: ED Discharge Assessment Last Done: 04/15/25 07:18 Discharge Date/Time: 04/15/25 07:19 Print Language: Bengali
[2025-04-15] MEDS: Albuterol Sulfate (0.083%) 2.5 MG/3 ML VIAL.NEB INHALE (02:08)
[2025-04-15 02:11] VITALS: PULSE 94; RESP 21; O2SAT 97
[2025-04-15 02:11] LABS: Venous Blood Gas Refer to POC result
[2025-04-15 02:12] LABS: Basophils Absolute Auto 0.1 X10*3/uL (0.0-0.2); Basophils Percent Auto 0.6 % (0-2); Eosinophils Absolute Auto 0.5 X10*3/uL (0.0-0.4); Eosinophils Percent Auto 4.9 % (0-4); Hemoglobin 13.5 g/dl (12.0-16.0); Imm Gran Abs Auto 0.02 X10*3/uL (0.00-0.03); Imm Gran Pct Auto 0.2 % (0.0-0.4); Lymphocytes Absolute Auto 4.3 X10*3/uL (1.2-4.9); MANUAL DIFF FLAG NO; Mean Corpuscular HGB Conc 34.6 g/dl (31.0-35.0); Mean Corpuscular Hemoglobin 27.9 pg (27.0-33.0); Mean Corpuscular Volume 80.6 fL (80.0-98.0); Mean Platelet Volume 9.5 fL (9.4-12.3); Monocytes Absolute Auto 0.5 X10*3/uL (0.1-1.2); Monocytes Percent Auto 5.2 % (2-11); Neutrophils Absolute Auto 4.3 x10*3/uL (2.0-8.3); Neutrophils Percent Auto 44.1 % (45-73); Platelet Count 264 X10*3/uL (160-400); Red Blood Count 4.84 X10*6/uL (4.20-5.50); Red Cell Distribution Width 13.7 % (11.0-16.0); White Blood Count 9.6 X10*3/uL (4.8-10.8)
[2025-04-15 02:16] LABS: VBG Base Excess 2.1 mmol/L; VBG HCO3 24 mmol/L (22-26); VBG pCO2 30 mmHg; VBG pH 7.51 (7.32-7.43); VBG pO2 83 mmHg
[2025-04-15] MEDS: 0.9 % Sodium Chloride 1,000 ML 999 ML IV (02:25)
[2025-04-15] MEDS: Magnesium Sulfate/H2O 2 GM/50 ML PIGGYBACK IV (02:25)
[2025-04-15 02:28] LABS: Lactic Acid 1.3 mmol/L (0.5-2.0)
[2025-04-15 02:32] LABS: Anion Gap 14 (12-20); B Type Natriuretic Peptide 28 pg/mL (<100); Blood Urea Nitrogen 12 mg/dL (9-16); Calcium 8.8 mg/dL (8.4-10.2); Carbon Dioxide 23 mmol/L (22-29); Chloride 108 mmol/L (96-108); Creatinine Clr Calc Pharmacy 165.3; Estimated Glomerular Filt Rate > 60; Glucose Random 196 mg/dL (60-115); Magnesium 2.1 mg/dL (1.6-2.6); Potassium 4.9 mmol/L (3.3-5.1); Sodium 140 mmol/L (135-145)
[2025-04-15 03:01] LABS: Influenza A PCR NEGATIVE (Negative); Influenza B PCR NEGATIVE (Negative); Resp Syncy Virus RNA Qual PCR NEGATIVE (Negative); SARS COV2 PCR INHOUSE NEGATIVE (Negative)
[2025-04-15] MEDS: Acetaminophen 325 MG TABLET 975 MG PO (05:15)
[2025-04-15] MEDS: Ketorolac Tromethamine 15 MG/ML VIAL IVPUSH (05:15)
[2025-04-15 05:55] VITALS: BP 112/76; PULSE 81; RESP 16; TEMP 37; O2SAT 96
[2025-04-15 06:13] VITALS: BP 129/87; PULSE 90; RESP 18; TEMP 36.7; O2SAT 94
[2025-04-15 06:36] LABS: IDNOW Serial# 58CA691E; Strep A Nucleic Acid Negative (Negative)
[2025-04-15 07:18] VITALS: BP 129/87; PULSE 90; RESP 18; TEMP 36.7; O2SAT 94
== END 2025-04-15 07:19 | disposition home or self-care (01) ==
PROVIDERS: Emergency Medicine; Emergency Provider Emergency Medicine; PCP Internal Medicine
DX: J45.901 Unspecified asthma with (acute) exacerbation (principal); M54.2 Cervicalgia; R06.02 Shortness of breath; E11.9 Type 2 diabetes mellitus without complications; I10 Essential (primary) hypertension; E78.5 Hyperlipidemia, unspecified; Z79.4 Long term (current) use of insulin; Z79.899 Other long term (current) drug therapy
CPT/HCPCS: 0241U; 36415; 71045; 80048; 82803; 83605; 83735; 83880; 85025; 87651; 94640; 96361; 96374; 96375; 99285; J1885; J2919; J3475

== ENCOUNTER → 2025-04-15 01:28 | Outpatient (BNV) | payer OTHER, SELFPAY | PROVIDERS: Emergency Provider Emergency Medicine; PCP Internal Medicine; Visit Provider Radiology Neuroradiology | DX: R06.00 Dyspnea, unspecified (principal) | CPT/HCPCS: 71045 ==

== ENCOUNTER 2025-04-25 09:17 | Outpatient (REF) | payer OTHER, SELFPAY ==
[2025-04-25 10:11] LABS: Estimated Average Glucose 203 mg/dL; Hemoglobin A1c % 8.7 % (<6.0); Total Hemoglobin (HGBA1C) 3649.4378 umol/L
[2025-04-25 10:17] LABS: Alanine Aminotransferase 18 U/L (0-31); Alkaline Phosphatase 92 U/L (39-117); Anion Gap 11 (12-20); Aspartate Amino Transferase 14 U/L (5-31); Blood Urea Nitrogen 9 mg/dL (9-16); Calcium 8.5 mg/dL (8.4-10.2); Carbon Dioxide 27 mmol/L (22-29); Chloride 108 mmol/L (96-108); Cholesterol 226 mg/dL (<200); Estimated Glomerular Filt Rate > 60; Glucose Random 161 mg/dL (60-115); HDL Cholesterol 54 mg/dL (>40); LDL Cholesterol Calculated 142 mg/dL (<100); Potassium 3.6 mmol/L (3.3-5.1); Sodium 142 mmol/L (135-145); Total Protein 6.8 g/dL (6.5-8.0); Triglycerides 150 mg/dL (<150)
== END 2025-04-25 09:18 | disposition home or self-care (01) ==
LOC: HO.10HDL 09:17
PROVIDERS: Visit Provider Internal Medicine
DX: E11.65 Type 2 diabetes mellitus with hyperglycemia (principal); E78.00 Pure hypercholesterolemia, unspecified; I10 Essential (primary) hypertension; Z68.37 Body mass index [BMI] 37.0-37.9, adult
CPT/HCPCS: 36415; 80053; 80061; 83036

== ENCOUNTER 2025-06-02 08:12 | Outpatient (AMB) | payer OTHER, SELFPAY ==
[2025-06-02 08:15] VITALS: BP 120/92; PULSE 95; O2SAT 96
--- NOTE | 2025-06-02 08:15 | MHC.OFFVIS ---
Vital Signs 06/02/25 08:15 Weight 230 lb 6.129 oz BP 120/92 H Blood Pressure Location Lt brachial Position Sitting Pulse 95 Pulse Source Pulse Oximeter Pulse Oximetry (%) 96 Oxygen Delivery Method Room Air Intake Visit Reasons: T2DM Intake Note: Patient present today for Type 2 Diabetes Mellitus Last Diabetic eye exam: 01/2025 Last Podiatry Visit: Doesn't have one Random Glucose: 190 mg/dl HgA1C: 8.7% 04/25/25 Graduate Nurse Required: No Accompanied by: Self / Same As Patient Allergies metronidazole (From Flagyl) Allergy (Severe, Verified 06/02/25 08:20) Anaphylaxis canagliflozin (Invokana) Allergy (Unknown, Verified 06/02/25 08:20) rash liraglutide Allergy (Unknown, Verified 06/02/25 08:20) rash animals Allergy (Unknown, Uncoded 06/02/25 08:20) rash Pt states no known food allerg Allergy (Unknown, Uncoded 06/02/25 08:20) Unknown Medication List - Last Reconciled 06/02/25 by Beth Villalobos PA-C albuterol sulfate 90 mcg/actuation 2 puffs inhalation Q6H PRN albuterol sulfate 5 mg inhalation Q4H PRN albuterol sulfate 2.5 mg inhalation BID PRN amitriptyline 1 tab PO BEDTIME blood sugar diagnostic (FreeStyle Lite Strips) use daily As directed blood-glucose meter (FreeStyle Lite Meter kit) As directed blood-glucose sensor ([employer] G7 Sensor device) As directed change every 10 days dexamethasone 6 mg PO DAILY 5 days empagliflozin (Jardiance) 25 mg PO DAILY ergocalciferol (vitamin D2) 1,250 mcg PO WE@0900 insulin lispro (Humalog KwikPen (U-100) Insulin) 15 units (0.15 mL) subcut TID ketorolac 10 mg PO Q8H PRN lancets (FreeStyle Lancets) 5x/day montelukast 10 mg PO BEDTIME nebulizers (Compact Compressor Nebulizer) As directed nebulizers (AeroEclipse II Nebulizer) As directed nystatin 600,000 units (6 mL) PO QID 10 days omalizumab (Xolair) 300 mg subcut Q2W 28 days omeprazole 40 mg PO DAILY@0630 pen needle, diabetic (Comfort EZ [employer] [place]) As directed injects 4X/day pen needle, diabetic (BD Ultra-Fine Mini Pen Needle) use 4x a day As directed prednisone 20 mg PO DAILY rosuvastatin 40 mg PO BEDTIME 90 days tirzepatide (Mounjaro) 12.5 mg (0.5 mL) subcut QWEEK HPI HPI T2DM: Details: Patient is a 49-year-old female with a significant past medical history obesity, uncontrolled type 2 diabetes, hypertension, hyperlipidemia, asthma presenting today for a short term follow-up for diabetes. Endo: Her last A1c was 8.7 (down from 11.1). She is currently on Lantus 40 units, Humalog 15 units with food-does not take this ever, jardiance 25 mg and is back on mounjaro 12.5 mg weeky/biweekly (sometimes forgets). Recently has had a lot of increased stress as her daughter got released from the hospital about a week ago and was admitted for an acute psychiatric illness. She has been worse since her discharge. Patient states that her 22-year-old daughter is living with her and is having paranoid delusions and not sleeping. She states that her daughter throughout all the food in the house thinking that it was poisoned and patient has been eating poorly due to stress. She says that she has been drinking sulshies, milkshakes and eating ice cream. She is calling the psychiatrist today. She says that they have been talking regularly -does not tolerate metformin GI distress, trulicity caused diarrhea, victoza caused a rash and nausea She is currently down 10 lb with diet and exercise for the last month. She states that she has been drinking a lot of water and urinating more frequently because of the elevated blood sugars. No vision changes, headaches, chest pain or shortness on breath. Reviewed her dexcom- 37% very high, 60% high, 3% in range. 0% hypoglycemic events. avg glucose 237 CV: Blood pressure today in the office is 120/84. Cholesterol is managed with rosuvastatin 40 mg. Reports that there were some compliance issues. Last LDL elevated above goal. No myalgias. 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 Diabetes type 2, uncontrolled Ectopic Hyperlipidemia Hypertension Asthma Surgical History History of esophagogastroduodenoscopy (EGD) Hx of colonoscopy History of surgical procedure on mouth Hx of ectopic Family History Father Diabetes mellitus Stomach cancer Mother Diabetes mellitus Ovarian cancer Paternal Grandfather Colon cancer Paternal Aunt Liver cancer Paternal Aunt Liver cancer Social History Household Members: Family Housing: House Do you presently have visiting nurse or other home services: No Alcohol intake: never Patient Tobacco Use Status: Never used Tobacco Advance Directives Date on File: 07/15/22 service: No Current occupational status: employed Physical Exam Vital Signs: Last Vital Signs Pulse 95 06/02/25 08:15 BP 120/92 H 06/02/25 08:15 Pulse Ox 96 06/02/25 08:15 Oxygen Delivery Method Room Air 06/02/25 08:15 Const Orientation/consciousness: patient oriented x3 HEENT Ears: hearing grossly normal bilaterally Neck Thyroid: Thyroid normal Lymphatic: no lymphadenopathy noted Resp Auscultation: clear to auscultation bilaterally Cardio Rate: regular rate Rhythm: regular rhythm Heart sounds: S1 normal heart sound present and S2 normal heart sound present Skin General skin exam: no rashes or lesions noted Neuro General: patient oriented x3, gait normal and no focal motor deficits Results Reviewed Results Reviewed: Laboratory Tests 10/22/24 04/25/25 07:52 09:22 Sodium 142 Potassium 3.6 D Chloride 108 Carbon Dioxide 27 Anion Gap 11 L BUN 9 Creatinine 0.51 Estimated GFR > 60 Random Glucose 161 H Estimat Average Glucose 203 Hemoglobin A1c % 8.7 H Calcium 8.5 Total Bilirubin 1.0 AST 14 ALT 18 Alkaline Phosphatase 92 Total Protein 6.8 Albumin 4.0 Triglycerides 150 H Cholesterol 226 H LDL Cholesterol, Calc 142 H HDL Cholesterol 54 Urine Creatinine 148.88 Urine Microalbumin 14.0 Microalb/Creat Ratio 9.4 Assessment & Plan Assessment & Plan (1) Diabetes type 2, uncontrolled: Code(s): E11.65 - Type 2 diabetes mellitus with hyperglycemia Category: Medical Qualifiers: Glycemic state: with hyperglycemia Qualified Code(s): E11.65 - Type 2 diabetes mellitus with hyperglycemia Plan: We will switch from Lantus to Toujeo. We will increase dosage to 50 units. Continue with the Mounjaro 12.5 mg weekly Continue with the Jardiance 25 mg daily. She tolerates this very well despite the uncontrolled blood sugars. Encouraged compliance with Humalog. Short term follow up. She will follow up sooner if anything worsens or changes. (2) Hypertension: Code(s): I10 - Essential (primary) hypertension Category: Medical Qualifiers: Hypertension type: essential hypertension Qualified Code(s): I10 - Essential (primary) hypertension Plan: We will continue monitoring. (3) Hyperlipidemia: Code(s): E78.5 - Hyperlipidemia, unspecified Category: Medical Qualifiers: Hyperlipidemia type: pure hypercholesterolemia Qualified Code(s): E78.00 - Pure hypercholesterolemia, unspecified Plan: Continue the Crestor 40 mg. Medications: New insulin glargine U-300 conc (Toujeo Max U-300 SoloStar) 50 units (0.1667 mL) subcut DAILY 6 mL 3RF 30 days Coding Level of Care Code Est Pt Level 4 (80540) Complex EM visit Add On G2211 Diagnoses Uncontrolled type 2 diabetes mellitus with hyperglycemia E11.65 Glycemic state: with hyperglycemia Essential hypertension I10 Hypertension type: essential hypertension Pure hypercholesterolemia E78.00 Hyperlipidemia type: pure hypercholesterolemia
[2025-06-02 08:30] LABS: Glucose, Whole Blood 190 mg/dL (60-115)
== END 2025-06-02 08:52 | disposition home or self-care (01) ==
LOC: HO.ENCR 08:12
PROVIDERS: PCP Internal Medicine; Visit Provider Physician Assistant
DX: E11.65 Type 2 diabetes mellitus with hyperglycemia (principal); I10 Essential (primary) hypertension; E78.00 Pure hypercholesterolemia, unspecified

== ENCOUNTER → 2025-06-02 08:12 | Outpatient (BNVA) | payer OTHER, SELFPAY | PROVIDERS: PCP Internal Medicine; Visit Provider Physician Assistant | DX: E11.65 Type 2 diabetes mellitus with hyperglycemia (principal); I10 Essential (primary) hypertension; E78.00 Pure hypercholesterolemia, unspecified; Z79.84 Long term (current) use of oral hypoglycemic drugs; Z79.85 Long-term (current) use of injectable non-insulin antidiabetic drugs; Z79.899 Other long term (current) drug therapy | CPT/HCPCS: 82947 ==

== ENCOUNTER 2025-07-12 17:22 | Emergency (ER) | payer OTHER, SELFPAY ==
--- NOTE | 2025-07-12 | ECG_ITS ---
Test Reason : SYNCOPE Blood Pressure : */* mmHG Vent. Rate : 85 BPM Atrial Rate : 85 BPM P-R Int : 138 ms QRS Dur : 98 ms QT Int : 380 ms P-R-T Axes : 39 16 32 degrees QTcB Int : 452 ms Normal sinus rhythm Normal ECG When compared with ECG of 25-Dec-2024 14:35, No significant change was found Referred By: Generic ED Physician Electronically Signed By: MONA HICKS
--- NOTE | ~2025-07-12 | CT_ITS ---
CLINICAL HISTORY: worst headache of life, dizzy, blurry vision CT Head without contrast. CT angiography head and neck with contrast. 3D Postprocessing. Comparison: CT - CT ANGIO HEAD NECK - 07/12/25 20:[address]/REG/SR - CT HEAD/BRAIN WO CON - 07/13/22 21:42 EDT Findings: HEAD CT: No intra-axial mass, midline shift, hydrocephalus, or acute hemorrhage. No significant atrophy-like change or white matter disease. There is no sinus or mastoid fluid. The orbits are within normal limits. No skull fracture. HEAD AND NECK CTA: Aortic arch and cervical great vessels are patent. Intracranial arteries are patent. No aneurysm, dissection, or occlusion. No abnormal intracranial enhancement. The visualized thyroid gland is unremarkable. No cervical mass or fluid collection. Lung apices clear. No acute fracture. IMPRESSION: 1. Unremarkable head CT. 2. Patent head and neck CTA. This document has been electronically signed by: Nadia Pierce MD on 07/12/2025 20:55:54
[2025-07-12 17:34] VITALS: BP 153/88; PULSE 87; O2SAT 98
[2025-07-12 17:40] VITALS: BP 195/117; PULSE 92; RESP 16; TEMP 36.7; O2SAT 98
--- NOTE | 2025-07-12 17:42 | ED_ITS ---
HPI - General Adult General Chief complaint: Syncope Stated complaint: DIZZY LOC Time Seen by Provider: 07/12/25 17:32 Source: patient and EMS Mode of arrival: EMS Limitations: no limitations History of Present Illness ED Provider: Meg Galeano PA-C HPI narrative: Patient is a 49 year old assigned female at with a history of HTN, migraines, DM, and asthma presenting to the emergency department today with headache, blurry vision, and dizziness. Patient states that while she was at work she began to have a headache with dizziness and blurry vision. Patient states that this feels similar to her previous migraines. Patient denies any other complaints at this time. Related Data Home Medications ?Medication ?Instructions ?Recorded ?Confirmed amitriptyline 25 mg tablet 1 tab PO BEDTIME 07/14/22 0 06/02/25 albuterol sulfate 2.5 mg/3 mL 2.5 mg inhalation BID VA N 08/08/22 06/02/25 (0.083 %) solution for nebulization Shortness Of Breat h Or Wheezing albuterol sulfate 90 mcg/actuation 2 puff inhalation Q 6H PRN 04/14/24 06/02/25 aerosol inhaler shortness of breath or wheez ing ergocalciferol (vitamin D2) 1,250 1,250 mcg PO WE@0900 04/14/24 06/02/25 mcg (50,000 unit) capsule Previous Rx's ?Medication ?Instructions ?Recorded nebulizers (AeroEclipse II #1 ea 12/22/20 Nebulizer) nebulizers (Compact Compressor #1 ea 12/31/20 Nebulizer) rosuvastatin 40 mg tablet 40 mg PO BEDTIME 90 days #90 tabs 03/13/21 omalizumab 150 mg subcutaneous 300 mg subcut Q2W 28 da ys #4 ea 08/12/22 solution (Xolair) pen needle, diabetic 32 gauge x #100 ea 03/12/2303/31 (Comfort EZ Pen Corona) montelukast 10 mg tablet 10 mg PO BEDTIME #90 tabs nystatin 100,000 unit/mL oral 600,000 unit (6 mL) PO Q ID 10 days 04/19/24 suspension #240 mL omeprazole 40 mg capsule,delayed 40 mg PO DAILY@06 # 90 caps 06/04/24 release blood-glucose meter (FreeStyle #1 ea 06/10/24 Lite Meter kit) lancets 28 gauge (FreeStyle #200 ea 06/10/24 Lancets) blood sugar diagnostic (FreeStyle #100 ea 08/05/24 Lite Strips) pen needle, diabetic 31 gauge x #100 ea 08/05/24 3/16 (BD Ultra-Fine Mini Pen Needle) blood-glucose sensor (Dexcom G7 #3 ea 10/17/24 Sensor device) albuterol sulfate 2.5 mg/0.5 mL 5 mg inhalation Q4H VA N shortness 10/19/24 solution for nebulization of breath or wheezing #30 ea ketorolac 10 mg tablet 10 mg PO Q8H PRN pain #10 ta bs 12/25/24 insulin lispro 100 unit/mL 15 unit (0.15 mL) subcut TI D #15 mL 01/20/25 subcutaneous pen (Humalog KwikPen (U-100) Insulin) empagliflozin 25 mg tablet 25 mg PO DAILY #90 tabs (Jardiance) tirzepatide 12.5 mg/0.5 mL 12.5 mg (0.5 mL) subcut QWE EK #2 mL 03/31/25 subcutaneous pen injector (Gustabo) dexamethasone 6 mg tablet 6 mg PO DAILY 5 days #5 tabs 04/15/25 prednisone 20 mg tablet 20 mg PO DAILY #12 tabs 03/18 12/10 Toujeo Max U-300 SoloStar 300 50 unit (0.1667 mL) subc ut DAILY 06/05/25 unit/mL (3 mL) subcutaneous 30 days #6 mL insulin pen (insulin glargine U-300 conc) Allergies Allergy/AdvReac Type Severity Reaction Status Date / Time metronidazole (From Flagyl) Allergy Severe Anaphylaxis Verified 07/12/25 17:48 canagliflozin (Invokana) Allergy Unknown rash Verified 07/12/25 17:48 liraglutide Allergy Unknown rash Verified 07/12/25 17:48 animals Allergy Unknown rash Uncoded 07/12/25 17:48 Pt states no known food Allergy Unknown Unknown Uncoded 07/12/25 17:48 allerg Review of Systems 2 Constitutional: Constitutional: Reports as per HPI Eyes: Eyes: Reports as per HPI ENT: Reports as per HPI Cardiovascular: Cardiovascular: Reports as per HPI Gastrointestinal: Gastrointestinal: Reports as per HPI Genitourinary: Genitourinary: Reports as per HPI Musculoskeletal: Musculoskeletal: Reports as per HPI Integumentary/Breasts: Skin/Breast: Reports as per HPI Neurologic: Reports as per HPI Psychiatric: Psychiatric: Reports as per HPI Endocrine: Endocrine: Reports as per HPI Hematologic/Lymphatic: Hematologic/Lymphatic: Reports as per HPI Allergic/Immunologic: Allergic/Immunologic: Reports as per HPI [facility] Past Medical History Attestation statement: The following information was validated with the patient. 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 Diabetes type 2, uncontrolled Ectopic Hyperlipidemia Hypertension Asthma Surgical History History of esophagogastroduodenoscopy (EGD) Hx of colonoscopy History of surgical procedure on mouth Hx of ectopic Family History Family History Father Diabetes mellitus Stomach cancer Mother Diabetes mellitus Ovarian cancer Paternal Grandfather Colon cancer Paternal Aunt Liver cancer Paternal Aunt Liver cancer Social History Social History Household Members: Family Housing: House Do you presently have visiting nurse or other home services: No Alcohol intake: never Patient Tobacco Use Status: Never used Tobacco Smoked in Last 30 Days: No Use of substances other than those prescribed or required for medical reasons: No Advance Directives: Yes Advance Directives on File: Yes Advance Directives Date on File: 07/15/22 service: No Current occupational status: employed Physical Exam ED Vital Signs: Vital Signs - 24 hr 07/12/25 17:40 07/12/25 17:47 07/12/25 18:43 Temperature 98.1 F 98.1 F Pulse Rate 92 102 H 83 Respiratory Rate 16 20 17 Blood Pressure 195/117 H 195/117 H 141/78 H Pulse Oximetry 98 98 Oxygen Delivery Method Room Air Room Air 07/12/25 20:59 07/12/25 20:59 07/12/25 21:11 Temperature 97.8 F Pulse Rate 90 90 Respiratory Rate 16 16 Blood Pressure 147/80 H 147/80 H Pulse Oximetry 99 99 99 Oxygen Delivery Method Room Air Room Air Room Air BMI result Body Mass Index 35.3 Const General: cooperative, no acute distress, alert and awake Nutritional Appearance: well nourished Orientation/consciousness: patient oriented x3 HENMT Head: Yes normal to inspection and Yes atraumatic Ears: hearing grossly normal bilaterally and external ears normal General nose exam: Normal external nose present, no nasal discharge noted and no epistaxis Face and sinus: Yes normal facial exam, No abrasion and No laceration Mouth: Normal oral and palatal mucosa present, no drooling and no muffled voice Eyes General: appearance normal, both eyes and all related structures Periorbital: periorbital findings normal Eyelids: Yes eyelids normal Conjunctivae: conjunctivae normal Pupils: Equal, round and reactive pupils present EOM: EOMs intact bilaterally Neck Neck: Yes normal visual inspection and Yes full ROM Resp Effort & Inspection: normal respiratory effort and able to speak in complete sentences Neuro General: patient oriented x3, moves all extremities and CN's II-XI intact bilaterally Cranial nerves: Yes Equal, round and reactive pupils present Cognition (Neuro): normal cognition Extrem General: Yes normal to inspection, Yes full ROM and Yes capillary refill normal Psych Appearance: grossly normal Mental Status: mental status grossly normal Affect: normal affect Attitude: cooperative Thought process: Normal thought process present Thought content: Normal thought content present Insight: Good insight present (Psych) Medications Administered Discontinued Medications Generic Name Dose Route Start Last Admin Trade Name Johnnyq PRN Reason Stop Dose Admin Diazepam 2.5 mg 07/12/25 17:45 07/12/25 18:10 Diazepam 10 Mg/2 Ml Cartridge IVPUSH 07/12/25 17:46 2.5 mg STAT STA Administration Diphenhydramine HCl 12.5 mg 07/12/25 17:45 07/12/25 18:09 Diphenhydramine Hcl 50 Mg/Ml Vial IVPUSH 07/12/25 17:46 12.5 mg ONCE ONE Administration Iohexol 75 ml 07/12/25 20:24 07/12/25 20:25 Iohexol 350 Mg/Ml 100 Ml Infus..Btl IV 07/12/25 20:25 75 ml ONCE ONE Administration Iohexol 75 ml 07/12/25 20:36 07/12/25 20:37 Iohexol 350 Mg/Ml 100 Ml Infus..Btl IV 07/12/25 20:37 75 ml ONCE ONE Administration Morphine Sulfate 2 mg 07/12/25 17:45 07/12/25 18:10 Morphine Sulfate 2 Mg/Ml Cartridge IVPUSH 07/12/25 17:46 2 mg ONCE ONE Administration Protocol Ondansetron HCl 4 mg 07/12/25 17:45 07/12/25 18:10 Ondansetron Hcl 4 Mg/2 Ml Vial IVPUSH 07/12/25 17:46 4 mg ONCE ONE Administration Medical Decision Making Medical Decision Making [facility] Narrative: Patient is a 49 year old assigned female at with a history of HTN, migraines, DM, and asthma presenting to the emergency department today with headache, blurry vision, and dizziness. Patient's physical exam was unremarkable, no focal neurologic deficits. Patient's blood work was unremarkable. Patient's CTA head/neck showed no acute process. I explained my physical exam findings as well as all test results to the patient. I answered all questions asked by the patient. Patient received IV valium, benadryl, morphine, and zofran which, upon re-evaluation, she stated it helped her symptoms significantly. I stressed the importance of the patient taking her medication as directed (either prescribed or as the over the counter packaging recommends). I stressed the importance of the patient following up with her primary care provider. I stressed the importance of the patient returning to the emergency department immediately if her symptoms were to worsen or if [he/she/they] were to develop any dizziness, shortness of breath, difficulty breathing, chest pain, blurry vision, loss of vision, nausea, vomiting, abdominal pain, fever, chills, back pain, or any other complaints. Patient verbalized agreement and understanding with this treatment plan and discharge. Differential Diagnosis Differential Diagnoses: The differential diagnosis associated with the presentation includes Migraine Headache Admission/Observation Consideration of admission/observation: Escalation of care including admission/observation considered Patient would have been admitted to the hospital had her work up had any findings where hospital admission was appropriate and her clinical presentation warranted hospital admission. Lab Data [facility] Lab Attestation statement: I reviewed the patient's lab results. My interpretation of these results are in the MDM Rationale portion of this note. 07/12/25 18:14 07/12/25 18:14 Labs: Lab Results 07/12/25 Range/Units 18:14 WBC 8.5 (4.8-10.8) X10*3/uL RBC 5.36 (4.20-5.50) X10*6/uL Hgb 15.2 (12.0-16.0) g/dl Hct 43.3 (37.0-47.0) % MCV 80.8 (80.0-98.0) fL MCH 28.4 (27.0-33.0) pg MCHC 35.1 H (31.0-35.0) g/dl RDW 12.9 (11.0-16.0) % Plt Count 277 (160-400) X10*3/uL MPV 9.7 (9.4-12.3) fL Immature Gran % (Auto) 0.2 (0.0-0.4) % Neut % (Auto) 66.3 (45-73) % Lymph % (Auto) 26.7 (20-40) % [place] % (Auto) 5.8 (2-11) % Eos % (Auto) 0.6 (0-4) % Baso % (Auto) 0.4 (0-2) % Lymph # (Auto) 2.3 (1.2-4.9) X10*3/uL [place] # (Auto) 0.5 (0.1-1.2) X10*3/uL Eos # (Auto) 0.1 (0.0-0.4) X10*3/uL Baso # (Auto) 0.0 (0.0-0.2) X10*3/uL Abs Immat Gran (auto) 0.02 (0.00-0.03) X10*3/uL Absolute Neuts (auto) 5.6 (2.0-8.3) x10*3/uL Absolute Nucleated RBC 0.000 (0.0-0.012) X10*3/uL Nucleated RBC % (auto) 0.0 (0.0-0.2) /100WBC PT 11.0 (10.9-12.4) SEC INR 1.0 (0.9-1.1) Sodium 135 (135-145) mmol/L Potassium 4.6 D (3.3-5.1) mmol/L Chloride 105 (96-108) mmol/L Carbon Dioxide 20 L (22-29) mmol/L Anion Gap 15 (12-20) BUN 8 L (9-16) mg/dL Creatinine 0.53 (0.5-1.4) mg/dL Estim Creat Clear Calc 159.4 Estimated GFR > 60 Random Glucose 195 H (60-115) mg/dL Calcium 8.8 (8.4-10.2) mg/dL Magnesium 2.2 (1.6-2.6) mg/dL Total Bilirubin 1.1 H (0.0-1.0) mg/dL AST 45 H (5-31) U/L ALT 30 (0-31) U/L Alkaline Phosphatase 96 (39-117) U/L Troponin I High Sens < 2.7 (<3.5-17.0) ng/L Total Protein 7.4 (6.5-8.0) g/dL Albumin 4.1 (3.5-5.0) g/dL Independent Interpretation I performed an independent interpretation of an: CT Scan Interpretation: My interpretation is in agreement with the radiologist's impression of this imaging study. L Report Number: [id number]: Total DLP = 1440.00 mGy-cm CLINICAL HISTORY: worst headache of life, dizzy, blurry vision CT Head without contrast. CT angiography head and neck with contrast. 3D Postprocessing. Comparison: CT - CT ANGIO HEAD NECK - 07/12/25 20:[address]/REG/SR - CT HEAD/BRAIN WO CON - 07/13/22 21:42 EDT Findings: HEAD CT: No intra-axial mass, midline shift, hydrocephalus, or acute hemorrhage. No significant atrophy-like change or white matter disease. There is no sinus or mastoid fluid. The orbits are within normal limits. No skull fracture. HEAD AND NECK CTA: Aortic arch and cervical great vessels are patent. Intracranial arteries are patent. No aneurysm, dissection, or occlusion. No abnormal intracranial enhancement. The visualized thyroid gland is unremarkable. No cervical mass or fluid collection. Lung apices clear. No acute fracture. IMPRESSION: 1. Unremarkable head CT. 2. Patent head and neck CTA. This document has been electronically signed by: Nadia Pierce MD on 07/12/2025 20:55:54 Dictated By: Nadia Pierce MD Signed By: Electronically signed by Nadia Pierce MD 07/12/252055 I independently interpreted this EKG and am in agreement with the below findings: Vent. Rate: 85 BPM Atrial Rate: 85 BPM P-R Int: 138 ms QRS Dur: 98 ms QT Int: 380 ms P-R-T Axes: 39 16 32 degrees QTcB Int: 452 ms Normal sinus rhythm Normal ECG When compared with ECG of 25-Dec-2024 14:35, No significant change was found DD/ 1752 Radiology Impression Discussion of test interpretation with radiology: I have reviewed the radiologist's reading. Independent Historian Clinical information obtained from an independent historian. History obtained from or confirmed by: EMS (EMS provided additional history and confirmed the history provided by the patient.) Chronic Conditions Patient?s care impacted by: Diabetes Critical Care Time Critical Care Time Critical Care Time: Yes Total Critical Care Time: 36 Attestation: I spent 36 minutes of Critical Care Time with this patient. This does not include time spent on separately reported billable procedures. Discharge Plan Discharge Clinical Impression: Headache, migraine Patient Disposition: Home, Self-Care Instructions: Migraine Headache (ED) Additional Instructions: Your work up today was unremarkable for any EMERGENT findings. IF you are prescribed home medications and/or you are taking over the counter medications at home - it is very important you continue to do so as prescribed / directed unless told otherwise. Follow up with a primary care provider. Return to the emergency department immediately if your symptoms worsen or if you develop any numbness, tingling, dizziness, shortness of breath, difficulty breathing, chest pain, blurry vision, loss of vision, nausea, vomiting, abdominal pain, fever, chills, back pain, or any other complaints. L If you do not have a primary care provider - call any of the below numbers to establish and follow up with a primary care provider. [facility] [place] [phone] [place], [place] [address] [place], [address] [facility] [place] [place] [place] [phone] [address] [facility], [address] [facility], [address] [facility] [place] [place] [place] [phone] [address] [facility], [address] [place], [address] [facility] [place] [phone] [place] [address], [address] [facility], [address] [facility] [place] [phone] [address] [facility], [address] Please see the information below about our Patient Portal. If you are not yet enrolled in the [facility] Patient Portal, you will receive an enrollment email invitation following your visit to any [facility] setting. You may also self-enroll in the Patient Portal by visiting our website: [email or web address] The following information is required to access the Patient Portal: - [place] [facility] [place] Number - Your personal home email address (must match what is in your electronic medical record, Registration staff can assist with this) - Name - Date of Capabilities of the Patient Portal: - Message some providers - View upcoming appointments - Access your health summary, medical history, and visit history - View current conditions and allergies - View procedure and lab results - View your medications, including guidelines, side effects, and precautions - Complete pre-appointment questionnaires requested by your provider - Ready summary reports of your office visits and procedures To access the Patient Portal Mobile [employer], follow these directions: - Search [employer] in the [employer] Store or [employer] Store - Download the [facility] - Search for [facility] - Enter your login/password Prescriptions: No Action Xolair 150 mg recon soln 300 mg subcut Q2W 28 Days Qty: 4 12RF Rx Instructions: requires multiple injection sites; do not exceed 150 mg per injection site insulin glargine U-300 conc [Toujeo Max U-300 SoloStar] 300 unit/mL (3 mL) insulin pen 50 unit subcut DAILY 30 Days Qty: 6 3RF (DME) nebulizers [AeroEclipse II Nebulizer] Misc See Rx Instructions .ROUTE .MEDSUPPLY Qty: 1 0RF Rx Instructions: As directed (DME) nebulizers [Compact Compressor Nebulizer] Misc See Rx Instructions .ROUTE .MEDSUPPLY Qty: 1 0RF Rx Instructions: As directed amitriptyline 25 mg tablet 1 tab PO BEDTIME albuterol sulfate 90 mcg/actuation HFA aerosol inhaler 2 puff inhalation Q6H PRN (Reason: shortness of breath or wheezing) ergocalciferol (vitamin D2) 1,250 mcg (50,000 unit) capsule 1,250 mcg PO WE@0900 nystatin 100,000 unit/mL Suspension 600,000 unit PO QID 10 Days Qty: 240 0RF omeprazole 40 mg Capsule,Delayed Release(Dr/Ec) 40 mg PO DAILY@0630 Qty: 90 0RF montelukast 10 mg tablet 10 mg PO BEDTIME Qty: 90 0RF ketorolac 10 mg tablet 10 mg PO Q8H PRN (Reason: pain) Qty: 10 0RF Rx Instructions: Do not use this medication with other NSAIDs albuterol sulfate 2.5 mg/0.5 mL solution for nebulization 5 mg inhalation Q4H PRN (Reason: shortness of breath or wheezing) Qty: 30 0RF dexamethasone 6 mg tablet 6 mg PO DAILY 5 Days Qty: 5 0RF prednisone 20 mg tablet 20 mg PO DAILY Qty: 12 0RF Rx Instructions: Take 3 tablets by mouth daily for 2 days then take 2 tablets by mouth daily for 3 days. rosuvastatin 40 mg tablet 40 mg PO BEDTIME 90 Days Qty: 90 2RF albuterol sulfate 2.5 mg /3 mL (0.083 %) solution for nebulization 2.5 mg inhalation BID PRN (Reason: Shortness Of Breath Or Wheezing) (DME) pen needle, diabetic [Comfort EZ Pen Corona] 32 gauge x 5/16 needle See Rx Instructions .Route Qty: 100 6RF Rx Instructions: As directed injects 4X/day (DME) blood-glucose meter [FreeStyle Lite Meter] Kit See Rx Instructions .ROUTE .MEDSUPPLY Qty: 1 0RF Rx Instructions: As directed (DME) lancets [FreeStyle Lancets] 28 gauge misc See Rx Instructions .ROUTE .MEDSUPPLY Qty: 200 1RF Rx Instructions: 5x/day (DME) Dexcom G7 Sensor Device See Rx Instructions .Route Qty: 3 5RF Rx Instructions: As directed change every 10 days Jardiance 25 mg tablet 25 mg PO DAILY Qty: 90 3RF (DME) pen needle, diabetic [BD Ultra-Fine Mini Pen Needle] 31 gauge x 3/16 needle See Rx Instructions .Route Qty: 100 5RF Rx Instructions: use 4x a day As directed (DME) FreeStyle Lite Strips Strip See Rx Instructions .Route Qty: 100 2RF Rx Instructions: use daily As directed insulin lispro [Humalog KwikPen Insulin] 100 unit/mL insulin pen 15 unit subcut TID Qty: 15 3RF Mounjaro 12.5 mg/0.5 mL pen injector 12.5 mg subcut QWEEK Qty: 2 3RF Interventions: ED Discharge Assessment Last Done: 07/12/25 21:11 Discharge Date/Time: 07/12/25 21:19 Print Language: Chinese
[2025-07-12 17:47] VITALS: BP 195/117; PULSE 102; RESP 20; TEMP 36.7; O2SAT 98; BMI 35.3
[2025-07-12] MEDS: diazePAM 10 MG/2 ML CARTRIDGE 2.5 MG IVPUSH (18:10)
[2025-07-12 18:18] LABS: MANUAL DIFF FLAG NO
[2025-07-12 18:20] LABS: Hematocrit 43.3 % (37.0-47.0); Hemoglobin 15.2 g/dl (12.0-16.0); Imm Gran Abs Auto 0.02 X10*3/uL (0.00-0.03); Imm Gran Pct Auto 0.2 % (0.0-0.4); Lymphocytes Absolute Auto 2.3 X10*3/uL (1.2-4.9); Mean Corpuscular HGB Conc 35.1 g/dl (31.0-35.0); Mean Corpuscular Hemoglobin 28.4 pg (27.0-33.0); Mean Corpuscular Volume 80.8 fL (80.0-98.0); NRBC Abs Auto 0.000 X10*3/uL (0.0-0.012); NRBC Pct Auto 0.0 /100WBC (0.0-0.2); Platelet Count 277 X10*3/uL (160-400); Red Blood Count 5.36 X10*6/uL (4.20-5.50); White Blood Count 8.5 X10*3/uL (4.8-10.8)
[2025-07-12 18:27] LABS: INTERNATIONAL NORM RATIO 1.0 (0.9-1.1); Prothrombin Time 11.0 SEC (10.9-12.4)
[2025-07-12 18:41] LABS: Alanine Aminotransferase 30 U/L (0-31); Albumin Level 4.1 g/dL (3.5-5.0); Alkaline Phosphatase 96 U/L (39-117); Anion Gap 15 (12-20); Aspartate Amino Transferase 45 U/L (5-31); Blood Urea Nitrogen 8 mg/dL (9-16); Calcium 8.8 mg/dL (8.4-10.2); Carbon Dioxide 20 mmol/L (22-29); Chloride 105 mmol/L (96-108); Creatinine Clr Calc Pharmacy 159.4; Estimated Glomerular Filt Rate > 60; Magnesium 2.2 mg/dL (1.6-2.6); Potassium 4.6 mmol/L (3.3-5.1); Sodium 135 mmol/L (135-145); Total Protein 7.4 g/dL (6.5-8.0)
[2025-07-12 18:43] VITALS: BP 141/78; PULSE 83; RESP 17
[2025-07-12 18:48] LABS: Troponin-I High Sensitivity < 2.7 ng/L (<3.5-17.0)
[2025-07-12] MEDS: iohexoL 350 MG/ML 100 ML INFUS..BTL 75 ML IV ×2 (20:25→20:37)
[2025-07-12 20:59] VITALS: BP 147/80; PULSE 90; RESP 16; O2SAT 99
[2025-07-12 21:11] VITALS: BP 147/80; PULSE 90; RESP 16; TEMP 36.6; O2SAT 99
== END 2025-07-12 21:19 | disposition home or self-care (01) ==
PROVIDERS: Physician Assistant Medical; Emergency Provider Emergency Medicine
DX: G43.909 Migraine, unspecified, not intractable, without status migrainosus (principal); R55 Syncope and collapse; H53.8 Other visual disturbances; I10 Essential (primary) hypertension; E11.9 Type 2 diabetes mellitus without complications; Z79.899 Other long term (current) drug therapy
CPT/HCPCS: 36415; 70496; 70498; 80053; 83735; 84484; 85025; 85610; 93005; 96374; 96375; 99285; J1200; J2270; J2405; J3360; Q9967

== ENCOUNTER → 2025-07-12 17:45 | Outpatient (BNV) | payer OTHER, SELFPAY | PROVIDERS: Emergency Provider Emergency Medicine; Visit Provider Radiology Diagnostic Radiology | DX: R51.9 Headache, unspecified (principal) | CPT/HCPCS: 70496; 70498 ==

== ENCOUNTER → 2025-07-12 17:52 | Outpatient (BNV) | payer OTHER, SELFPAY | PROVIDERS: Emergency Provider Emergency Medicine; Visit Provider Internal Medicine | DX: R55 Syncope and collapse (principal) | CPT/HCPCS: 93010 ==

== ENCOUNTER 2025-07-14 08:32 | Outpatient (AMB) | payer OTHER, SELFPAY ==
--- NOTE | 2025-07-14 08:35 | MHC.OFFVIS ---
Vital Signs 07/14/25 08:36 Height 5 ft 6 in Weight 227 lb 4.745 oz BMI 36.7 BP 150/98 H Blood Pressure Location Lt brachial Position Sitting Pulse 82 Pulse Source Pulse Oximeter Pulse Oximetry (%) 97 Oxygen Delivery Method Room Air Intake Visit Reasons: DMT2 Intake Note: Patient present today for Type 2 Diabetes Mellitus Last Diabetic eye exam: She had one this year but is not sure of the date. Last Podiatry Visit: Doesn't have one Random Glucose: 133 mg/dl HgA1C: 8.7% 04/25/25 Radio Mechanic Required: No Accompanied by: Self / Same As Patient Allergies metronidazole (From Flagyl) Allergy (Severe, Verified 07/14/25 08:41) Anaphylaxis canagliflozin (Invokana) Allergy (Unknown, Verified 07/14/25 08:41) rash liraglutide Allergy (Unknown, Verified 07/14/25 08:41) rash animals Allergy (Unknown, Uncoded 07/14/25 08:41) rash Pt states no known food allerg Allergy (Unknown, Uncoded 07/14/25 08:41) Unknown Medication List - Last Reconciled 07/14/25 by Beth Villalobos PA-C albuterol sulfate 90 mcg/actuation 2 puffs inhalation Q6H PRN albuterol sulfate 5 mg inhalation Q4H PRN albuterol sulfate 2.5 mg inhalation BID PRN amitriptyline 1 tab PO BEDTIME blood sugar diagnostic (FreeStyle Lite Strips) use daily As directed blood-glucose meter (FreeStyle Lite Meter kit) As directed blood-glucose sensor ([employer] G7 Sensor device) As directed change every 10 days dexamethasone 6 mg PO DAILY 5 days empagliflozin (Jardiance) 25 mg PO DAILY ergocalciferol (vitamin D2) 1,250 mcg PO WE@0900 insulin lispro (Humalog KwikPen (U-100) Insulin) 15 units (0.15 mL) subcut TID ketorolac 10 mg PO Q8H PRN lancets (FreeStyle Lancets) 5x/day montelukast 10 mg PO BEDTIME nebulizers (Compact Compressor Nebulizer) As directed nebulizers (AeroEclipse II Nebulizer) As directed nystatin 600,000 units (6 mL) PO QID 10 days omalizumab (Xolair) 300 mg subcut Q2W 28 days omeprazole 40 mg PO DAILY@0630 pen needle, diabetic (Comfort EZ Pen [place]) As directed injects 4X/day pen needle, diabetic (BD Ultra-Fine Mini Pen Needle) use 4x a day As directed prednisone 20 mg PO DAILY rosuvastatin 40 mg PO BEDTIME 90 days tirzepatide (Mounjaro) 12.5 mg (0.5 mL) subcut QWEEK Toujeo Max U-300 SoloStar (insulin glargine U-300 conc) 50 units (0.1667 mL) subcut DAILY 30 days NS HPI HPI DMT2: Details: Patient is a 49-year-old female with a significant past medical history obesity, uncontrolled type 2 diabetes, hypertension, hyperlipidemia, asthma presenting today for a short term follow-up for diabetes. Endo: Her last A1c was 8.7 (down from 11.1). She is currently on toujeo 25 units, Humalog 20 units with food, jardiance 25 mg and is back on mounjaro 12.5 mg weeky. She only took a couple doses of the Toujeo and felt sick with it so switched back to Lantus. -does not tolerate metformin GI distress, trulicity caused diarrhea, victoza caused a rash and nausea Reviewed her dexcom- 0 (was 37%) very high, 7 (was 60%) high, 84% (was 3%) in range. 9% hypoglycemic events. -the hypoglycemia appears to be occurring in the evening and overnight. CV: Blood pressure today in the office is 150/98. She does not think that she is on any medication for her blood pressure. She has seen her PCP recently but denies any change in her regimen. Cholesterol is managed with rosuvastatin 40 mg. Reports that there were some compliance issues. Last LDL elevated above goal. No myalgias. [facility] Medical History Environmental allergies Anxiety Eosinophilia Obesity due to excess calories Vitamin D deficiency Diabetic 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 with type 2 diabetes mellitus intermediate frame tender (current) use of insulin Diabetes type 2, uncontrolled Ectopic Hyperlipidemia Hypertension Asthma Surgical History History of esophagogastroduodenoscopy (EGD) Hx of colonoscopy History of surgical procedure on mouth Hx of ectopic Family History Father Diabetes mellitus Stomach cancer Mother Diabetes mellitus Ovarian cancer Paternal Grandfather Colon cancer Paternal Aunt Liver cancer Paternal Aunt Liver cancer Social History Household Members: Family Housing: House Do you presently have visiting nurse or other home services: No Alcohol intake: never Patient Tobacco Use Status: Never used Tobacco Advance Directives Date on File: 07/15/22 service: No Current occupational status: employed Physical Exam Vital Signs: Last Vital Signs Pulse 82 07/14/25 08:36 BP 150/98 H 07/14/25 08:36 Pulse Ox 97 07/14/25 08:36 Oxygen Delivery Method Room Air 07/14/25 08:36 BMI result Body Mass Index 36.7 Const Orientation/consciousness: patient oriented x3 HEENT Ears: hearing grossly normal bilaterally Neck Thyroid: Thyroid normal Lymphatic: no lymphadenopathy noted Resp Auscultation: clear to auscultation bilaterally Cardio Rate: regular rate Rhythm: regular rhythm Heart sounds: S1 normal heart sound present and S2 normal heart sound present Skin General skin exam: no rashes or lesions noted Neuro General: patient oriented x3, gait normal and no focal motor deficits Results Reviewed Results Reviewed: Laboratory Tests 04/25/25 07/12/25 09:22 18:14 Creatinine 0.53 Estimated GFR > 60 Random Glucose 195 H Hemoglobin A1c % 8.7 H Total Bilirubin 1.1 H AST 45 H ALT 30 Triglycerides 150 H Cholesterol 226 H LDL Cholesterol, Calc 142 H HDL Cholesterol 54 Assessment & Plan Assessment & Plan (1) Diabetes type 2, uncontrolled: Code(s): E11.65 - Type 2 diabetes mellitus with hyperglycemia Category: Medical Qualifiers: Glycemic state: with hyperglycemia Qualified Code(s): E11.65 - Type 2 diabetes mellitus with hyperglycemia Plan: Switch from Toujeo to Tresiba Start Tresiba 30 units Reduced Humalog to 10 units with meals Continue Mounjaro Continue Jardiance Return in 1 month to reassess low blood sugars (2) Hypertension: Code(s): I10 - Essential (primary) hypertension Category: Medical Qualifiers: Hypertension type: essential hypertension Qualified Code(s): I10 - Essential (primary) hypertension Plan: Start amlodipine. We discussed risks and benefits and adverse effects of this medication. We will recheck in 4 weeks. Medications: New amlodipine 5 mg PO DAILY 90 tabs 0RF insulin degludec (Tresiba FlexTouch U-200 insulin) 30 units (0.15 mL) subcut BEDTIME 9 mL 0RF Changed From insulin lispro (Humalog KwikPen (U-100) Insulin) 15 units (0.15 mL) subcut TID 15 mL 3RF To insulin lispro (Humalog KwikPen (U-100) Insulin) 10 units (0.1 mL) subcut TID 15 mL 3RF Discontinued Toujeo Max U-300 SoloStar (insulin glargine U-300 conc) Discontinued Reason: Doctor's Order 50 units (0.1667 mL) subcut DAILY 30 days 6 mL 3RF NS Patient Instructions: stop toujeo switch to tresiba and increase to 30 units lower humalog dose to 10 units with meals start amlodipine for blood pressure return in 1 month Coding Level of Care Code Est Pt Level 4 (43956) Complex EM visit Add On G2211 Diagnoses Uncontrolled type 2 diabetes mellitus with hyperglycemia E11.65 Glycemic state: with hyperglycemia Essential hypertension I10 Hypertension type: essential hypertension
[2025-07-14 08:36] VITALS: BP 150/98; PULSE 82; O2SAT 97; BMI 36.7
[2025-07-14 08:46] LABS: Glucose, Whole Blood 133 mg/dL (60-115)
== END 2025-07-14 08:58 | disposition home or self-care (01) ==
LOC: HO.ENCR 08:33
PROVIDERS: PCP Internal Medicine; Visit Provider Physician Assistant
DX: E11.65 Type 2 diabetes mellitus with hyperglycemia (principal); I10 Essential (primary) hypertension

== ENCOUNTER → 2025-07-14 08:32 | Outpatient (BNVA) | payer OTHER, SELFPAY | PROVIDERS: PCP Internal Medicine; Visit Provider Physician Assistant | DX: E11.65 Type 2 diabetes mellitus with hyperglycemia (principal); E66.9 Obesity, unspecified; I10 Essential (primary) hypertension; E78.5 Hyperlipidemia, unspecified; J45.909 Unspecified asthma, uncomplicated; Z79.4 Long term (current) use of insulin; Z68.36 Body mass index [BMI] 36.0-36.9, adult; Z79.899 Other long term (current) drug therapy | CPT/HCPCS: 82947 ==

== ENCOUNTER 2025-08-10 10:01 | Outpatient (REF) | payer OTHER, SELFPAY ==
[2025-08-10 13:10] LABS: Alanine Aminotransferase 28 U/L (0-31); Albumin Level 4.2 g/dL (3.5-5.0); Alkaline Phosphatase 101 U/L (39-117); Anion Gap 11 (12-20); Aspartate Amino Transferase 24 U/L (5-31); Blood Urea Nitrogen 9 mg/dL (9-16); Calcium 8.7 mg/dL (8.4-10.2); Carbon Dioxide 24 mmol/L (22-29); Chloride 109 mmol/L (96-108); Cholesterol 185 mg/dL (<200); Estimated Glomerular Filt Rate > 60; HDL Cholesterol 50 mg/dL (>40); Potassium 3.7 mmol/L (3.3-5.1); Sodium 140 mmol/L (135-145); Total Protein 7.1 g/dL (6.5-8.0); Triglycerides 91 mg/dL (<150)
[2025-08-10 13:15] LABS: Microalbum/Creatinine Ratio Ur 7.2 ug/mg cr (<30)
== END 2025-08-10 10:02 | disposition home or self-care (01) ==
LOC: HO.10HDL 10:01
PROVIDERS: Visit Provider Physician Assistant
DX: I10 Essential (primary) hypertension (principal); E78.00 Pure hypercholesterolemia, unspecified; E11.65 Type 2 diabetes mellitus with hyperglycemia
CPT/HCPCS: 36415; 80053; 80061; 82043; 82570; 83036

== ENCOUNTER 2025-08-14 07:54 | Outpatient (AMB) | payer OTHER, SELFPAY ==
--- NOTE | 2025-08-14 07:56 | A.OFFVIS_ITS ---
Vital Signs 08/14/25 08:00 Height 5 ft 6 in Weight 231 lb 7.766 oz BMI 37.4 BP 138/80 Blood Pressure Location Rt brachial Position Sitting Pulse 84 Pulse Source Pulse Oximeter Pulse Oximetry (%) 96 Oxygen Delivery Method Room Air Intake Visit Reasons: T2DM Intake Note: Patient present today for Type 2 Diabetes Mellitus Last Diabetic eye exam: She had one this year but is not sure of the date. Last Podiatry Visit: Doesn't have one Random Glucose: 226 mg/dL HgA1C: 9.0% 08/10/25 Certified Medical Biller Required: No Accompanied by: Self / Same As Patient Allergies metronidazole (From Flagyl) Allergy (Severe, Verified 08/14/25 08:03) Anaphylaxis canagliflozin (Invokana) Allergy (Unknown, Verified 08/14/25 08:03) rash liraglutide Allergy (Unknown, Verified 08/14/25 08:03) rash animals Allergy (Unknown, Uncoded 08/14/25 08:03) rash Pt states no known food allerg Allergy (Unknown, Uncoded 08/14/25 08:03) Unknown Medication List - Last Reconciled 08/14/25 by Beth Villalobos PA-C albuterol sulfate 90 mcg/actuation 2 puffs inhalation Q6H PRN albuterol sulfate 5 mg inhalation Q4H PRN albuterol sulfate 2.5 mg inhalation BID PRN amitriptyline 1 tab PO BEDTIME amlodipine 5 mg PO DAILY blood sugar diagnostic (FreeStyle Lite Strips) use daily As directed blood-glucose meter (FreeStyle Lite Meter kit) As directed blood-glucose sensor ([employer] G7 Sensor device) As directed change every 10 days dexamethasone 6 mg PO DAILY 5 days empagliflozin (Jardiance) 25 mg PO DAILY ergocalciferol (vitamin D2) 1,250 mcg PO WE@0900 insulin glargine (Lantus Solostar U-100 Insulin) 20 units (0.2 mL) subcut DAILY insulin lispro (Humalog KwikPen (U-100) Insulin) 20 units (0.2 mL) subcut TID ketorolac 10 mg PO Q8H PRN lancets (FreeStyle Lancets) 5x/day montelukast 10 mg PO BEDTIME nebulizers (Compact Compressor Nebulizer) As directed nebulizers (AeroEclipse II Nebulizer) As directed nystatin 600,000 units (6 mL) PO QID 10 days omalizumab (Xolair) 300 mg subcut Q2W 28 days omeprazole 40 mg PO DAILY@0630 pen needle, diabetic (Comfort EZ Pen [place]) As directed injects 4X/day pen needle, diabetic (BD Ultra-Fine Mini Pen Needle) use 4x a day As directed prednisone 20 mg PO DAILY rosuvastatin 40 mg PO BEDTIME 90 days tirzepatide (Mounjaro) 12.5 mg (0.5 mL) subcut QWEEK HPI HPI T2DM: Details: Patient is a 49-year-old female with a significant past medical history obesity, uncontrolled type 2 diabetes, hypertension, hyperlipidemia, asthma presenting today for a short term follow-up for diabetes. Endo: Her last A1c was 9. She is supposed to be on tresiba 25 units, Humalog 20 units with food, jardiance 25 mg and mounjaro 12.5 mg weeky. -She has not been using tresiba or toujeo, She is sometimes using her mother's lantus. She states her insurance did not cover mounjaro last month. She recently switched isurance plans. -She is only taking humalog 20-30 units prior meals, lantus 10-20 units and jardiance. She did not give herself humalog this morning BS 226 today. States that she has elevated bs today because she had a pancake this morning and no humalog because she was rushing She only took a couple doses of the Toujeo and felt sick with it so switched back to Lantus. -does not tolerate metformin GI distress, trulicity caused diarrhea, victoza caused a rash and nausea Reviewed her dexcom- 34% very high, 47% high, 19% in range. 0% hypoglycemic events. CV: Blood pressure today in the office is 138/80. She is on amlodipine 5 mg. Tolerating this well. Cholesterol is managed with rosuvastatin 40 mg. Reports that there were some compliance issues. Last LDL elevated above goal. No myalgias. 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 Diabetes type 2, uncontrolled Ectopic Hyperlipidemia Hypertension Asthma Surgical History History of esophagogastroduodenoscopy (EGD) Hx of colonoscopy History of surgical procedure on mouth Hx of ectopic Family History Father Diabetes mellitus Stomach cancer Mother Diabetes mellitus Ovarian cancer Paternal Grandfather Colon cancer Paternal Aunt Liver cancer Paternal Aunt Liver cancer Social History Household Members: Family Housing: House Do you presently have visiting nurse or other home services: No Alcohol intake: never Patient Tobacco Use Status: Never used Tobacco Advance Directives Date on File: 07/15/22 service: No Current occupational status: employed Physical Exam Vital Signs: Last Vital Signs Pulse 84 08/14/25 08:00 BP 138/80 08/14/25 08:00 Pulse Ox 96 08/14/25 08:00 Oxygen Delivery Method Room Air 08/14/25 08:00 BMI result Body Mass Index 37.4 Const Orientation/consciousness: patient oriented x3 HEENT Ears: hearing grossly normal bilaterally Neck Thyroid: Thyroid normal Lymphatic: no lymphadenopathy noted Resp Auscultation: clear to auscultation bilaterally Cardio Rate: regular rate Rhythm: regular rhythm Heart sounds: S1 normal heart sound present and S2 normal heart sound present Skin General skin exam: no rashes or lesions noted Neuro General: patient oriented x3, gait normal and no focal motor deficits Results Reviewed Results Reviewed: Laboratory Last Values Glucose (Clinic) 226 mg/dL (60-115) H 08/14/25 08:04 Laboratory Tests 08/10/25 10:05 Creatinine 0.55 Estimated GFR > 60 Hemoglobin A1c % 9.0 H AST 24 ALT 28 Triglycerides 91 Cholesterol 185 LDL Cholesterol, Calc 117 H HDL Cholesterol 50 Assessment & Plan Assessment & Plan (1) Diabetes type 2, uncontrolled: Code(s): E11.65 - Type 2 diabetes mellitus with hyperglycemia Category: Medical Qualifiers: Glycemic state: with hyperglycemia Qualified Code(s): E11.65 - Type 2 diabetes mellitus with hyperglycemia Plan: will restart lantus and increase dosage to 35 units adjusted rx to reflect her humalog dosing, urged compliance will restart mounjaro at lower dose and plan to titrate as tolerated continue jardiance- no adverse reactions (advised to watch for uti or yeast infection sx) will add glipizide 5 mg er advised short term follow up she will call me if she is having issues getting script (2) Hypertension: Code(s): I10 - Essential (primary) hypertension Category: Medical Qualifiers: Hypertension type: essential hypertension Qualified Code(s): I10 - Essential (primary) hypertension Plan: improved with norvasc advised follow up with pcp (3) Hyperlipidemia: Code(s): E78.5 - Hyperlipidemia, unspecified Category: Medical Qualifiers: Hyperlipidemia type: pure hypercholesterolemia Qualified Code(s): E78.00 - Pure hypercholesterolemia, unspecified Plan: improved, not at goal- states she will be better with crestor. Medications: New insulin glargine (Lantus Solostar U-100 Insulin) 20 units (0.2 mL) subcut DAILY 15 mL 4RF glipizide ER 5 mg PO DAILY 90 tabs 0RF insulin glargine (Lantus Solostar U-100 Insulin) 35 units (0.35 mL) subcut DAILY 15 mL 4RF tirzepatide (Mounjaro) 5 mg (0.5 mL) subcut QWEEK 2 mL 5RF Changed From insulin lispro (Humalog KwikPen (U-100) Insulin) 10 units (0.1 mL) subcut TID 15 mL 3RF To insulin lispro (Humalog KwikPen (U-100) Insulin) 20 units (0.2 mL) subcut TID 15 mL 3RF Discontinued insulin degludec (Tresiba FlexTouch U-200 insulin) Discontinued Reason: Doctor's Order 30 units (0.15 mL) subcut BEDTIME 9 mL 0RF Coding Level of Care Code Est Pt Level 4 (07700) Complex EM visit Add On G2211 Diagnoses Uncontrolled type 2 diabetes mellitus with hyperglycemia E11.65 Glycemic state: with hyperglycemia Essential hypertension I10 Hypertension type: essential hypertension Pure hypercholesterolemia E78.00 Hyperlipidemia type: pure hypercholesterolemia
[2025-08-14 08:00] VITALS: BP 138/80; PULSE 84; O2SAT 96; BMI 37.4
[2025-08-14 08:07] LABS: Glucose, Whole Blood 226 mg/dL (60-115)
== END 2025-08-14 08:23 | disposition home or self-care (01) ==
LOC: HO.ENCR 07:55
PROVIDERS: PCP Internal Medicine; Visit Provider Physician Assistant
DX: E11.65 Type 2 diabetes mellitus with hyperglycemia (principal); I10 Essential (primary) hypertension; E78.00 Pure hypercholesterolemia, unspecified

== ENCOUNTER → 2025-08-14 07:54 | Outpatient (BNVA) | payer OTHER, SELFPAY | PROVIDERS: PCP Internal Medicine; Visit Provider Physician Assistant | DX: E11.65 Type 2 diabetes mellitus with hyperglycemia (principal); I10 Essential (primary) hypertension; E78.00 Pure hypercholesterolemia, unspecified; Z79.4 Long term (current) use of insulin; Z79.899 Other long term (current) drug therapy | CPT/HCPCS: 82947 ==

== ENCOUNTER 2025-10-09 08:37 | Outpatient (AMB) | payer OTHER, SELFPAY ==
[2025-10-09 08:39] VITALS: BP 144/92; PULSE 94; O2SAT 97; BMI 38.0
--- NOTE | 2025-10-09 08:39 | MHC.OFFVIS ---
Vital Signs 10/09/25 08:39 Height 5 ft 6 in Weight 235 lb 3.732 oz BMI 38.0 BP 144/92 H Blood Pressure Location Lt brachial Position Sitting Pulse 94 Pulse Source Pulse Oximeter Pulse Oximetry (%) 97 Oxygen Delivery Method Room Air Intake Visit Reasons: T2DM Intake Note: Patient present today for Type 2 Diabetes Mellitus Last Diabetic eye exam: Last exam was on August. Last Podiatry Visit: Doesn't have one Random Glucose: 204 mg/dl HgA1C: 9.0% 08/10/25 Environmental Planning Engineer Required: No Accompanied by: Self / Same As Patient Allergies metronidazole (From Flagyl) Allergy (Severe, Verified 10/09/25 08:45) Anaphylaxis canagliflozin (Invokana) Allergy (Unknown, Verified 10/09/25 08:45) rash liraglutide Allergy (Unknown, Verified 10/09/25 08:45) rash animals Allergy (Unknown, Uncoded 10/09/25 08:45) rash Pt states no known food allerg Allergy (Unknown, Uncoded 10/09/25 08:45) Unknown HPI HPI T2DM: Details: Patient is a 49-year-old female with a significant past medical history obesity, uncontrolled type 2 diabetes, hypertension, hyperlipidemia, asthma presenting today for a short term follow-up for diabetes. Endo: Her last A1c was 9. She is supposed to be on Lantus 35 units, Humalog 10 units with food, jardiance 25 mg and mounjaro 12.5 mg weeky. She states it is going so-so . She has had many dietary indiscretions. She had apple cider donuts this week. She also has significant issues with compliance of insulin, specifically the Humalog. -her blood sugars elevated today in the office as she states that she has not used any of the Humalog. She had breakfast and states that she was rushing getting over here. She used to be on a pump but found it hard to be compliant with this. BS 204 today -does not tolerate metformin GI distress, trulicity caused diarrhea, victoza caused a rash and nausea Reviewed her dexcom- states she has had some issues with the dexcom so hasn't used it this last week. From the previous 2 weeks: Very hyperglycemic 44%, hyperglycemic 45%, in range 11%, hypoglycemic 0%. GMI 9.1%, avg 244 CV: Blood pressure today in the office is 144/92. She is on amlodipine 5 mg. Tolerating this well. Cholesterol is managed with rosuvastatin 40 mg. Reports that there were some compliance issues. Last LDL elevated above goal. No myalgias. 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 of insulin Diabetes type 2, uncontrolled Ectopic Hyperlipidemia Hypertension Asthma Surgical History History of esophagogastroduodenoscopy (EGD) Hx of colonoscopy History of surgical procedure on mouth Hx of ectopic Family History Father Diabetes mellitus Stomach cancer Mother Diabetes mellitus Ovarian cancer Paternal Grandfather Colon cancer Paternal Aunt Liver cancer Paternal Aunt Liver cancer Social History Household Members: Family Housing: House Do you presently have visiting nurse or other home services: No Alcohol intake: never Patient Tobacco Use Status: Never used Tobacco Advance Directives Date on File: 07/15/22 service: No Current occupational status: employed Physical Exam Vital Signs: Last Vital Signs Pulse 94 10/09/25 08:39 BP 144/92 H 10/09/25 08:39 Pulse Ox 97 10/09/25 08:39 Oxygen Delivery Method Room Air 10/09/25 08:39 BMI result Body Mass Index 38.0 Const Orientation/consciousness: patient oriented x3 HEENT Ears: hearing grossly normal bilaterally Neck Thyroid: Thyroid normal Lymphatic: no lymphadenopathy noted Resp Auscultation: clear to auscultation bilaterally Cardio Rate: regular rate Rhythm: regular rhythm Heart sounds: S1 normal heart sound present and S2 normal heart sound present Skin General skin exam: no rashes or lesions noted Neuro General: patient oriented x3, gait normal and no focal motor deficits Results Reviewed Results Reviewed: Laboratory Tests 08/10/25 10:05 Creatinine 0.55 Estimated GFR > 60 Fasting Glucose 138 H Hemoglobin A1c % 9.0 H Triglycerides 91 Cholesterol 185 LDL Cholesterol, Calc 117 H HDL Cholesterol 50 Assessment & Plan Assessment & Plan (1) Diabetes type 2, uncontrolled: Code(s): E11.65 - Type 2 diabetes mellitus with hyperglycemia Category: Medical Qualifiers: Glycemic state: with hyperglycemia Qualified Code(s): E11.65 - Type 2 diabetes mellitus with hyperglycemia Plan: will switch to toujeo and increase to 45 units We will switch from Humalog to Fiasp given insurance change. New Rx to reflect dosing Increase Mounjaro to 15 mg weekly continue jardiance- no adverse reactions (advised to watch for uti or yeast infection sx) stop glipizide 5 mg er Gave her to Dexcom sensors today in the office advised short term follow up she will call me if she is having issues getting script (2) Hyperlipidemia: Code(s): E78.5 - Hyperlipidemia, unspecified Category: Medical Qualifiers: Hyperlipidemia type: pure hypercholesterolemia Qualified Code(s): E78.00 - Pure hypercholesterolemia, unspecified Plan: improved, not at goal- states she will be better with crestor. Medications: New insulin glargine U-300 conc (Toujeo Max U-300 SoloStar) 45 units (0.15 mL) subcut DAILY 6 mL 3RF Fiasp Penfill U-100 Insulin 100 unit/mL (3 mL) (insulin aspart (niacinamide)) 10 units subcut TID 15 mL 3RF NS tirzepatide (Mounjaro) 15 mg (0.5 mL) subcut QWEEK 2 mL 5RF Discontinued insulin lispro (Humalog KwikPen (U-100) Insulin) Discontinued Reason: Doctor's Order 20 units (0.2 mL) subcut TID 15 mL 3RF glipizide ER Discontinued Reason: Doctor's Order 5 mg PO DAILY 90 tabs 0RF insulin glargine (Lantus Solostar U-100 Insulin) Discontinued Reason: Doctor's Order 35 units (0.35 mL) subcut DAILY 15 mL 4RF tirzepatide (Mounjaro) Discontinued Reason: Duplicate 12.5 mg (0.5 mL) subcut QWEEK 2 mL 0RF Coding Level of Care Code Est Pt Level 4 (58880) Diagnoses Uncontrolled type 2 diabetes mellitus with hyperglycemia E11.65 Glycemic state: with hyperglycemia Pure hypercholesterolemia E78.00 Hyperlipidemia type: pure hypercholesterolemia
[2025-10-09 08:53] LABS: Glucose, Whole Blood 204 mg/dL (60-115)
== END 2025-10-09 09:12 | disposition home or self-care (01) ==
LOC: HO.ENCR 08:38
PROVIDERS: PCP Internal Medicine; Visit Provider Physician Assistant
DX: E11.65 Type 2 diabetes mellitus with hyperglycemia (principal); E78.00 Pure hypercholesterolemia, unspecified

== ENCOUNTER → 2025-10-09 08:37 | Outpatient (BNVA) | payer OTHER, SELFPAY | PROVIDERS: PCP Internal Medicine; Visit Provider Physician Assistant | DX: E11.65 Type 2 diabetes mellitus with hyperglycemia (principal); I10 Essential (primary) hypertension; E78.00 Pure hypercholesterolemia, unspecified | CPT/HCPCS: 82947 ==